=== PATIENT | male | born 1955 | race Caucasian/White ===

== ENCOUNTER 2022-12-14 19:59 | Emergency (ER) | payer MEDICARE, MEDICAID, SELFPAY ==
[2022-12-14] VITALS (23 sets, daily range): BP systolic 137–164; BP diastolic 66–118; PULSE 88–115; RESP 15–22; TEMP 36.8; O2SAT 97–100; BMI 27.8
--- NOTE | 2022-12-14 20:12 | PC.NURSE ---
pt requesting to talk to the dr about complaints and not in front of friend and nurse
--- NOTE | 2022-12-14 20:15 | ED.SOB1 ---
HPI - SOB/Dyspnea General Chief Complaint: Shortness of Breath/Dyspnea Stated Complaint: CP/DIFF BREATHING, PT ON O2 Time Seen by Provider: 12/14/22 20:07 Source: patient Mode of arrival: Wheelchair Limitations: no limitations History of Present Illness HPI Narrative: history of 02 dependent COPD. normally on 2L NC. has been increasing 02 at home to 5L NC due to dyspnea. And also describes episodes of atypical chest pain which he describes as an electric shock left chest on and off. No nausea or vomiting. he is also anxious and tearful regarding his health MD elicited complaint: shortness of breath Pertinent past history: COPD Related Data Allergies Allergy/AdvReac Type Severity Reaction Status Date / Time No Known Drug Allergies Allergy Verified 12/14/22 20:04 Review of Systems ROS Status of ROS 10 or more systems reviewed and unremarkable except as noted in history and below PFSH PFS Social History Smoking status: Current every day smoker Exam Constitutional Vital Signs, click to edit/add: Last Vital Signs Temp 98.2 F 12/14/22 20:05 Pulse 96 H 12/14/22 22:40 Resp 18 12/14/22 22:40 BP 140/88 12/14/22 22:31 Pulse Ox 98 12/14/22 22:40 O2 Del Method Nasal Cannula 12/14/22 20:58 O2 Flow Rate 3 12/14/22 20:58 Common normals: no apparent distress, oriented x3, no limitations (mild resp distress), alert and well nourished Eye Common normals: EOMs intact bilaterally and conjunctivae normal Respiratory Other: diminished breath sounds Cardio Common normals: regular rate, regular rhythm, S1 normal heart sound and S2 normal heart sound Extremity Common normals: normal to inspection, full ROM and no joint enlargement Neuro Common normals: oriented x3, CN's II-XII intact bilaterally, moves all extremities and no focal motor deficits Psych Appearance: grossly normal Course Vital Signs Vital signs: Vital Signs Temperature 98.2 F 12/14/22 20:05 Pulse Rate 115 H 12/14/22 20:05 Respiratory Rate 18 12/14/22 20:05 Blood Pressure 158/75 H 12/14/22 20:05 Pulse Oximetry 99 12/14/22 20:05 Oxygen Delivery Method Room Air 12/14/22 20:05 Temperature 98.2 F 08/14/23 20:05 Pulse Rate 96 H 12/14/22 22:40 Respiratory Rate 18 12/14/22 22:40 Blood Pressure 140/88 12/14/22 22:31 Pulse Oximetry 98 12/14/22 22:40 Oxygen Delivery Method Nasal Cannula 12/14/22 20:58 Oxygen Delivery Flow Rate 3 12/14/22 20:58 MDM - SOB/Dyspnea MDM Narrative Medical decision making narrative: patient presents with complaint of dyspnea and also found to have anxiety. Treated with solumedrol, ativan and duoneb and afterwards rested comfortably. he also described atypical chest pain. Sensation of an electric shock . Serial troponins neg. cxray without infiltrates. Patient informed of the working diagnosis of COPD exac. and anxiety. Will discharge home with prednisone and have him follow up with his doctor Lab Data Labs: Lab Results 12/14/22 12/14/22 Range/Units 20:30 23:21 WBC 9.6 (4.0-11.0) 10^3/uL RBC 5.20 (4.70-6.10) 10^6/uL Hgb 15.9 (14.0-18.0) g/dL Hct 50.1 (42.0-54.0) % MCV 96.3 H (80.0-94.0) fL MCH 30.6 (25.9-34.0) pg MCHC 31.7 (29.9-35.2) g/dL RDW 13.3 (11.0-15.0) % Plt Count 177 (150-450) 10^3/uL MPV 11.4 (9.5-13.5) fL Neut % (Auto) 80.6 H (43.0-75.0) % Lymph % (Auto) 14.5 L (20.5-60.0) % [place] % (Auto) 3.6 (1.7-12.0) % Eos % (Auto) 0.2 L (0.9-7.0) % Baso % (Auto) 0.3 (0.2-2.0) % Neut # (Auto) 7.7 H (1.4-6.5) 10^3/uL Lymph # (Auto) 1.4 (1.2-3.8) 10^3/uL [place] # (Auto) 0.4 (0.3-0.8) 10^3/uL Eos # (Auto) 0.0 (0.0-0.7) 10^3/uL Baso # (Auto) 0.0 (0.0-0.1) 10^3/uL Abs Immat Gran (auto) 0.08 H (0.00-0.03) 10^3/uL Imm/Tot Granulo (auto) 0.8 H (0.0-0.5) % Sodium 142 (136-145) mmol/L Potassium 4.5 (3.5-5.1) mmol/L Chloride 102 (98-107) mmol/L Carbon Dioxide 35.5 H (21.0-32.0) mmol/L Anion Gap 9.0 BUN 18.0 (7.0-18.0) mg/dL Creatinine 1.11 (0.70-1.30) mg/dL Est GFR ( Amer) >60 (>=60) Est GFR (Non-Af Amer) >60 (>=60) BUN/Creatinine Ratio 16.2 Glucose 228 H (74-106) mg/dL Calcium 8.5 (8.5-10.1) mg/dL Troponin I High Sens 65.4 69.4 (4.0-76.1) pg/mL NT-Pro-B Natriuret Pep 158.0 (<=900.0) pg/mL Discharge Plan Discharge Chief Complaint: Shortness of Breath/Dyspnea Clinical Impression: Asthma exacerbation with COPD (chronic obstructive pulmonary disease) Patient Disposition: Home, Self-Care Instructions: COPD (Chronic Obstructive Pulmonary Disease) (ED) Additional Instructions: follow up with your doctor later this week for recheck Stand Alone Forms: Portal Instructions Referrals: Shaikh Hook MD [Primary Care Provider] - 1 week Discharge Date/Time: 12/15/22 00:32
--- NOTE | 2022-12-14 20:24 | ECG_ITS ---
[facility] Test Date: 2022-12-14 Pat Name: Boris Mohr Department: Room: - Gender: Male Biology Specialist: : 1955 Requested By: SHAIKH KAYY Order Number: [id number] Reading MD: CLARA BISHOP Measurements Intervals [place] Rate: 97 P: 81 DC: 144 QRS: 96 QRSD: 72 T: 81 QT: 328 QTc: 383 Interpretive Statements 1100 Sinus rhythm 1102 Sinus arrhythmia 7102 Moderate right axis deviation 9110 normal ECG No previous ECG available for comparison Electronically Signed On 12-15-2022 7:16:05 EDT by CLARA BISHOP
--- NOTE | 2022-12-14 20:35 | XR_ITS ---
The [address] [address] Patient Name: JAMSHID VARELA MRN: [id number] date: 1955 Sex: M Assigned Patient Location: ED.MAIN Current Patient Location: ER Accession/Order Number: [id number] Exam Date: 12/14/2022 20:35 Report Date: 12/14/2022 21:19 At the request of: LONNIE CANO Procedure: XR chest 1V EXAM: XR chest 1V HISTORY: short of breath COMPARISON: None. TECHNIQUE: AP portable study FINDINGS: The lung rosen are well-expanded and clear. There is hyperexpansion of the thorax with flattening of the diaphragm. The heart is within normal limits in size. Early calcification is noted at the aortic arch. Bony structures are unremarkable. XR/XR chest 1V IMPRESSION: Hyperexpansion of the thorax. In the proper clinical setting, this finding can be associated with COPD. No acute cardiopulmonary process is otherwise identified. Electronically authenticated by: Radha MOONEY Date: 12/14/2022 21:19
[2022-12-14 20:36] LABS: Basophils Percent Auto 0.3 % (0.2-2.0); Eosinophils Percent Auto 0.2 % (0.9-7.0); Hematocrit 50.1 % (42.0-54.0); Hemoglobin 15.9 g/dL (14.0-18.0); Immature Granulocytes Abs Auto 0.08 10^3/uL (0.00-0.03); Immature Granulocytes Pct Auto 0.8 % (0.0-0.5); Lymphocytes Absolute Auto 1.4 10^3/uL (1.2-3.8); Lymphocytes Percent Auto 14.5 % (20.5-60.0); Mean Corpuscular HGB Conc 31.7 g/dL (29.9-35.2); Mean Corpuscular Hemoglobin 30.6 pg (25.9-34.0); Mean Corpuscular Volume 96.3 fL (80.0-94.0); Mean Platelet Volume 11.4 fL (9.5-13.5); Monocytes Absolute Auto 0.4 10^3/uL (0.3-0.8); Monocytes Percent Auto 3.6 % (1.7-12.0); Neutrophils Absolute Auto 7.7 10^3/uL (1.4-6.5); Neutrophils Percent Auto 80.6 % (43.0-75.0); Platelet Count 177 10^3/uL (150-450); Red Cell Distribution Width 13.3 % (11.0-15.0); White Blood Count 9.6 10^3/uL (4.0-11.0)
[2022-12-14] MEDS: LORAZEPAM 2 MG/ML 1 ML VIAL 0.5 MG IV (20:36)
[2022-12-14] MEDS: METHYLPREDNISOLONE SOD SUCC PF 125 MG/2 ML VIAL IVP (20:36)
[2022-12-14] MEDS: IPRATROPIUM/ALBUTEROL SULFATE 3 ML AMPUL.NEB IH (20:40)
[2022-12-14 20:57] LABS: BUN Creatinine Ratio 16.2; Calcium 8.5 mg/dL (8.5-10.1); Carbon Dioxide 35.5 mmol/L (21.0-32.0); Chloride 102 mmol/L (98-107); Estimated GFR (African America >60 (>=60); Estimated GFR (Non-African Ame >60 (>=60); Glucose 228 mg/dL (74-106); Potassium 4.5 mmol/L (3.5-5.1); Sodium 142 mmol/L (136-145); Troponin I High Sensitivity 65.4 pg/mL (4.0-76.1)
[2022-12-14 23:43] LABS: Troponin I High Sensitivity 69.4 pg/mL (4.0-76.1)
== END 2022-12-15 00:32 | disposition home or self-care (01) ==
PROVIDERS: Emergency Provider Internal Medicine; PCP Internal Medicine
DX: J44.1 Chronic obstructive pulmonary disease with (acute) exacerbation (principal); F17.210 Nicotine dependence, cigarettes, uncomplicated; Z99.81 Dependence on supplemental oxygen
CPT/HCPCS: 36415; 71045; 80048; 83880; 84484; 85025; 93005; 94640; 96374; 96375; 99285; J2930

== ENCOUNTER 2022-12-23 13:41 | Observation (INO) | payer MEDICARE, MEDICAID, SELFPAY ==
[2022-12-23] VITALS (29 sets, daily range): BP systolic 112–168; BP diastolic 69–126; PULSE 87–114; RESP 15–40; TEMP 36.4–36.7; O2SAT 92–100; BMI 22.8; BMI 23.5
--- NOTE | 2022-12-23 14:00 | ECG_ITS ---
The [facility] Test Date: 2022-12-23 Pat Name: JAMSHID VARELA Department: Room: - Gender: Male Database Manager: : 1955 Requested By: SHAIKH KAYY Order Number: [id number] Reading MD: CLARA BISHOP Measurements Intervals [place] Rate: 110 P: 90 DC: 142 QRS: 99 QRSD: 76 T: 65 QT: 310 QTc: 375 Interpretive Statements 1120 Sinus tachycardia 1470 with occasional supraventricular premature complexes 7102 Moderate right axis deviation 9140 abnormal rhythm ECG Compared to ECG 12/14/2022 20:25:32 Sinus rhythm no longer present Sinus arrhythmia no longer present Electronically Signed On 12-25-2022 6:57:05 EDT by CLARA BISHOP
--- NOTE | 2022-12-23 14:02 | ED.GENADUL1 ---
Documented by User: ELI Moss 12/23/22 16:20 HPI - General Adult General Chief complaint: Chest Pain Stated complaint: CHEST PAIN Time Seen by Provider: 12/23/22 13:44 Source: patient Mode of arrival: walk-in Limitations: no limitations History of Present Illness HPI narrative: patient is a 66-year-old male with chronic obstructive pulmonary disease who presents to the Emergency Room for continued shortness of breath and intermittent pain in the left chest. Patient was seen in this emergency department for the same one week ago. He states symptoms have not improved. He is on a chronic low dose of prednisone. He has a pulper operator in [place] with states the last time he followed up with her she referred him to the emergency department. He saw his PCP today for follow-up and was referred back to the emergency department. He states he has intermittent electric shocks in the left side of the chest which is similar to previous. No peripheral edema. He denies fevers or vomiting. He has chronic sputum production of a small amount of phlegm, no hemoptysis. He denies any history of coronary artery disease or CVA. he is regular smoker. Related Data Home Medications Medication Instructions Recorded Confirmed albuterol sulfate 2.5 mg/3 mL 2.5 mg inhalation Q4H PRN 12/23/22 12/23/22 (0.083 %) solution for nebulization shortness of breath or wheezing aspirin 81 mg chewable tablet 81 mg PO DAILY 12/23/22 12/23/22 atorvastatin 20 mg tablet 20 mg PO DAILY 12/23/22 12/23/22 budesonide 0.5 mg/2 mL suspension 0.5 mg inhalation DAILY PRN sob 12/23/22 12/23/22 for nebulization glycopyrrolate 9 mcg-formoterol 2 inh inhalation Q12H 12/23/22 12/23/22 4.8 mcg HFA aerosol inhaler (Bevespi Aerosphere) prednisone 10 mg tablet 10 mg PO DAILY 12/23/22 12/23/22 tiotropium bromide 18 mcg capsule 1 cap inhalation DAILY 12/23/22 12/23/22 with inhalation device (Spiriva with HandiHaler) Allergies Allergy/AdvReac Type Severity Reaction Status Date / Time No Known Drug Allergies Allergy Verified 12/14/22 20:04 Review of Systems ROS Constitutional Denies: fever or chills Ears, nose, mouth, and throat Denies: throat pain Cardiovascular Reports: chest pain Respiratory Reports: shortness of breath, cough and wheezing Gastrointestinal Reports: nausea; Denies: abdominal pain or vomiting Musculoskeletal Denies: back pain or neck pain Integumentary/Breast Denies: rash Neurological Denies: headache Allergic/Immunologic Denies: hives [facility] Medical History (Updated 12/24/22 @ 10:13 by Kodak Garcia MD) Family History (Updated 12/23/22 @ 17:08 by Anne Siddiqui) Father Family history of CHF (congestive heart failure) Family history of hypertension Mother Family history of CHF (congestive heart failure) Family history of COPD (chronic obstructive pulmonary disease) Family history of hypertension Social History (Updated 12/23/22 @ 17:10 by Anne Siddiqui) Within the past year, how often did you have a drink containing alcohol: monthly or less Within the past year, how many standard drinks containing alcohol did you have on a typical day: 1 or 2 Within the past year, how often did you have six or more drinks on one occasion: never Total score: 0 Score interpretation: A score less than 4 is consistent with normal alcohol consumption. Smoking status: Current every day smoker Non-prescribed substance use: cannabis (any form) Previous occupational history: retired Highest level of school completed/degree received: some college, no degree Are you now , , , , never or living with a partner: In a typical week, how many times do you talk on the telephone with family, friends, or neighbors: twice per week How often do you get together with friends or relatives: twice per week How often do you attend nondenominational or nondenominational services: never Do you belong to any clubs or organizations such as nondenominational groups unions, fraternal or athletic groups, or school groups: no Total score: 1 Score interpretation: A score of less than or equal to 1 indicates the most socially isolated. Little interest or pleasure in doing things: not at all Feeling down, depressed, or hopeless: several days Feel stressed/tense/nervous/anxious/difficulty sleeping: to some extent Exam Narrative Exam Narrative: Gen.: Awake, alert, in no distress Head: Normocephalic, atraumatic ENT: Moist mucous membranes Respiratory: No respiratory distress, oxygen by nasal cannula with expiratory wheezing globally Cardio: Regular rate and rhythm Extremities: Moves extremities equally, no pedal edema Psych: Normal mood and affect Neuro: No focal neuro deficit Skin: Warm, dry, intact Constitutional Vital Signs, click to edit/add: Last Vital Signs Temp 97.5 F L 12/25/22 05:09 Pulse 93 H 12/25/22 08:07 Resp 20 12/25/22 05:09 BP 155/82 H 12/25/22 05:09 Pulse Ox 97 12/25/22 05:09 O2 Del Method Nasal Cannula 12/25/22 05:09 O2 Flow Rate 3 12/25/22 05:09 Course Vital Signs Vital signs: Vital Signs Temperature 98.1 F 12/23/22 13:48 Pulse Rate 105 H 12/23/22 13:48 Respiratory Rate 24 12/23/22 13:48 Pulse Oximetry 92 L 12/23/22 13:48 Oxygen Delivery Method Room Air 12/23/22 13:48 Oxygen Delivery Flow Rate 3 12/23/22 13:48 Temperature 97.5 F L 12/25/22 05:09 Pulse Rate 93 H 12/25/22 08:07 Respiratory Rate 20 12/25/22 05:09 Blood Pressure 155/82 H 12/25/22 05:09 Pulse Oximetry 97 12/25/22 05:09 Oxygen Delivery Method Nasal Cannula 12/25/22 05:09 Oxygen Delivery Flow Rate 3 12/25/22 05:09 Medical Decision Making [facility] Narrative Medical decision making narrative: patient states he was given a prescription of prednisone last week from the emergency department, he states he did not fill or take this medication. He is notably anxious in the emergency department. patient was given IV fluids, breathing treatments, Solu-Medrol, aspirin. He had no severe chest pain in the Emergency Room. No EKG changes at this time. Lab studies are stable from previous although d-dimer was elevated and the patient was sent for CTA of the chest which does not show any evidence of acute process. this is the patient's 2nd visit in one week for shortness of breath and chest pain, he has risk factors of cigarette smoking, his age and history of high cholesterol. He has not improved in his breathing and chronic obstructive pulmonary disease exacerbation as an outpatient, we will admit for failure of outpatient treatment of chronic obstructive pulmonary disease exacerbation and atypical chest pain. Repeat troponin is pending at this time and patient will be admitted to the hospitalist. Medical Records Medical records reviewed: Yes I reviewed the patient's medical records Lab Data Lab results reviewed: Yes I reviewed the patient's lab results Labs: Lab Results 12/23/22 12/23/22 Range/Units 14:00 16:15 WBC 9.0 (4.0-11.0) 10^3/uL RBC 5.43 (4.70-6.10) 10^6/uL Hgb 16.9 (14.0-18.0) g/dL Hct 52.9 (42.0-54.0) % MCV 97.4 H (80.0-94.0) fL MCH 31.1 (25.9-34.0) pg MCHC 31.9 (29.9-35.2) g/dL RDW 12.9 (11.0-15.0) % Plt Count 217 (150-450) 10^3/uL MPV 11.7 (9.5-13.5) fL Neut % (Auto) 68.2 (43.0-75.0) % Lymph % (Auto) 23.3 (20.5-60.0) % [place] % (Auto) 6.5 (1.7-12.0) % Eos % (Auto) 0.8 L (0.9-7.0) % Baso % (Auto) 0.6 (0.2-2.0) % Neut # (Auto) 6.1 (1.4-6.5) 10^3/uL Lymph # (Auto) 2.1 (1.2-3.8) 10^3/uL [place] # (Auto) 0.6 (0.3-0.8) 10^3/uL Eos # (Auto) 0.1 (0.0-0.7) 10^3/uL Baso # (Auto) 0.1 (0.0-0.1) 10^3/uL Abs Immat Gran (auto) 0.05 H (0.00-0.03) 10^3/uL Imm/Tot Granulo (auto) 0.6 H (0.0-0.5) % PT 10.9 (9.0-11.6) sec INR 1.03 APTT 25.3 (22.3-36.2) sec D-Dimer 1.73 H* (<=0.59) mg/L FEU Sodium 135 L (136-145) mmol/L Potassium 4.1 (3.5-5.1) mmol/L Chloride 98 (98-107) mmol/L Carbon Dioxide 39.9 H (21.0-32.0) mmol/L Anion Gap 1.2 BUN 20.0 H (7.0-18.0) mg/dL Creatinine 1.06 (0.70-1.30) mg/dL Est GFR ( Amer) >60 (>=60) Est GFR (Non-Af Amer) >60 (>=60) BUN/Creatinine Ratio 18.9 Glucose 180 H (74-106) mg/dL Calcium 8.8 (8.5-10.1) mg/dL Total Bilirubin 0.9 (0.2-1.0) mg/dL AST 31 (15-37) U/L ALT 58 (16-63) U/L Alkaline Phosphatase 83 (46-116) U/L Troponin I High Sens 48.5 45.3 (4.0-76.1) pg/mL NT-Pro-B Natriuret Pep 88.0 (<=900.0) pg/mL Total Protein 7.5 (6.4-8.2) g/dL Albumin 3.7 (3.4-5.0) g/dL Globulin 3.8 g/dL Albumin/Globulin Ratio 1.[address] scan - chest: Attestation: I have reviewed the pertinent imaging results. Radiologist's impression: Procedure: CT angio chest EXAMINATION: CT angio chest, 12/23/2022 3:15 PM EDT HISTORY: Pulmonary embolism COMPARISON: CTA of the chest from 12/13/2021 TECHNIQUE: CT angiography of the chest was performed with water soluble IV contrast. MIP (maximum intensity projection) images or 3D post processing was performed. CT dose reduction technique was used, including Automated Exposure Control. FINDINGS: The heart is normal in size. The thoracic aorta is normal in caliber. The pulmonary arteries are well opacified without evidence of filling defects. Centrilobular emphysematous changes and bronchiectasis are again seen throughout both lungs. No acute infiltrate is seen. Subcentimeter calcified granuloma is again noted in the medial aspect of the right lung apex. The mediastinum and sonny appear unremarkable. The osseous structures appear intact. The visualized portions of the upper abdomen appear unremarkable. IMPRESSION: No evidence of pulmonary emboli or other acute process. Emphysematous changes and bronchiectasis are again seen throughout both lungs. Electronically authenticated by: SRIDHAR LUCIO Date: 12/23/2022 16:04 ECG Data Attestation: I personally reviewed and interpreted this ECG as follows: (sinus tachycardia, rate of 110, occasional PVCs with no acute ST elevation. EKG reviewed by attending physician) Discharge Plan Discharge Chief Complaint: Chest Pain Clinical Impression: COPD with acute exacerbation, Atypical chest pain Patient Disposition: Admitted as Observation Time of Disposition Decision: 16:20 Condition: Good Discharge Date/Time: 12/23/22 16:52 Documented by User: Anny Carbajal MD 12/25/22 08:37 HPI - General Adult General Chief complaint: Chest Pain Stated complaint: CHEST PAIN Time Seen by Provider: 12/23/22 13:44 Related Data Home Medications Medication Instructions Recorded Confirmed albuterol sulfate 2.5 mg/3 mL 2.5 mg inhalation Q4H PRN 12/23/22 12/23/22 (0.083 %) solution for nebulization shortness of breath or wheezing aspirin 81 mg chewable tablet 81 mg PO DAILY 12/23/22 12/23/22 atorvastatin 20 mg tablet 20 mg PO DAILY 12/23/22 12/23/22 budesonide 0.5 mg/2 mL suspension 0.5 mg inhalation DAILY PRN sob 12/23/22 12/23/22 for nebulization glycopyrrolate 9 mcg-formoterol 2 inh inhalation Q12H 12/23/22 12/23/22 4.8 mcg HFA aerosol inhaler (Bevespi Aerosphere) prednisone 10 mg tablet 10 mg PO DAILY 12/23/22 12/23/22 tiotropium bromide 18 mcg capsule 1 cap inhalation DAILY 12/23/22 12/23/22 with inhalation device (Spiriva with HandiHaler) Allergies Allergy/AdvReac Type Severity Reaction Status Date / Time No Known Drug Allergies Allergy Verified 12/14/22 20:04 [facility] Medical History (Updated 12/24/22 @ 10:13 by Kodak Garcia MD) Family History (Updated 12/23/22 @ 17:08 by Anne Siddiqui) Father Family history of CHF (congestive heart failure) Family history of hypertension Mother Family history of CHF (congestive heart failure) Family history of COPD (chronic obstructive pulmonary disease) Family history of hypertension Social History (Updated 12/23/22 @ 17:10 by Anne Siddiqui) Within the past year, how often did you have a drink containing alcohol: monthly or less Within the past year, how many standard drinks containing alcohol did you have on a typical day: 1 or 2 Within the past year, how often did you have six or more drinks on one occasion: never Total score: 0 Score interpretation: A score less than 4 is consistent with normal alcohol consumption. Smoking status: Current every day smoker Non-prescribed substance use: cannabis (any form) Previous occupational history: retired Highest level of school completed/degree received: some college, no degree Are you now , , , , never or living with a partner: In a typical week, how many times do you talk on the telephone with family, friends, or neighbors: twice per week How often do you get together with friends or relatives: twice per week How often do you attend nondenominational or nondenominational services: never Do you belong to any clubs or organizations such as nondenominational groups unions, fraternal or athletic groups, or school groups: no Total score: 1 Score interpretation: A score of less than or equal to 1 indicates the most socially isolated. Little interest or pleasure in doing things: not at all Feeling down, depressed, or hopeless: several days Feel stressed/tense/nervous/anxious/difficulty sleeping: to some extent Exam Constitutional Vital Signs, click to edit/add: Last Vital Signs Temp 97.5 F L 12/25/22 05:09 Pulse 93 H 12/25/22 08:07 Resp 20 12/25/22 05:09 BP 155/82 H 12/25/22 05:09 Pulse Ox 97 12/25/22 05:09 O2 Del Method Nasal Cannula 12/25/22 05:09 O2 Flow Rate 3 12/25/22 05:09 Course Vital Signs Vital signs: Vital Signs Temperature 98.1 F 12/23/22 13:48 Pulse Rate 105 H 12/23/22 13:48 Respiratory Rate 24 12/23/22 13:48 Pulse Oximetry 92 L 12/23/22 13:48 Oxygen Delivery Method Room Air 12/23/22 13:48 Oxygen Delivery Flow Rate 3 12/23/22 13:48 Temperature 97.5 F L 12/25/22 05:09 Pulse Rate 93 H 12/25/22 08:07 Respiratory Rate 20 12/25/22 05:09 Blood Pressure 155/82 H 12/25/22 05:09 Pulse Oximetry 97 12/25/22 05:09 Oxygen Delivery Method Nasal Cannula 12/25/22 05:09 Oxygen Delivery Flow Rate 3 12/25/22 05:09 Medical Decision Making MDM Narrative Medical decision making narrative: patient states he was given a prescription of prednisone last week from the emergency department, he states he did not fill or take this medication. He is notably anxious in the emergency department. patient was given IV fluids, breathing treatments, Solu-Medrol, aspirin. He had no severe chest pain in the Emergency Room. No EKG changes at this time. Lab studies are stable from previous although d-dimer was elevated and the patient was sent for CTA of the chest which does not show any evidence of acute process. this is the patient's 2nd visit in one week for shortness of breath and chest pain, he has risk factors of cigarette smoking, his age and history of high cholesterol. He has not improved in his breathing and chronic obstructive pulmonary disease exacerbation as an outpatient, we will admit for failure of outpatient treatment of chronic obstructive pulmonary disease exacerbation and atypical chest pain. Repeat troponin is pending at this time and patient will be admitted to the hospitalist. Attending physician attestation I have seen and evaluated this patient. I have reviewed the mid-level provider?s documentation medical decision making and treatment plan. I agree with the mid-level provider?s assessment, and plan. Lab Data Labs: Lab Results 12/23/22 12/23/22 Range/Units 14:00 16:15 WBC 9.0 (4.0-11.0) 10^3/uL RBC 5.43 (4.70-6.10) 10^6/uL Hgb 16.9 (14.0-18.0) g/dL Hct 52.9 (42.0-54.0) % MCV 97.4 H (80.0-94.0) fL MCH 31.1 (25.9-34.0) pg MCHC 31.9 (29.9-35.2) g/dL RDW 12.9 (11.0-15.0) % Plt Count 217 (150-450) 10^3/uL MPV 11.7 (9.5-13.5) fL Neut % (Auto) 68.2 (43.0-75.0) % Lymph % (Auto) 23.3 (20.5-60.0) % [place] % (Auto) 6.5 (1.7-12.0) % Eos % (Auto) 0.8 L (0.9-7.0) % Baso % (Auto) 0.6 (0.2-2.0) % Neut # (Auto) 6.1 (1.4-6.5) 10^3/uL Lymph # (Auto) 2.1 (1.2-3.8) 10^3/uL [place] # (Auto) 0.6 (0.3-0.8) 10^3/uL Eos # (Auto) 0.1 (0.0-0.7) 10^3/uL Baso # (Auto) 0.1 (0.0-0.1) 10^3/uL Abs Immat Gran (auto) 0.05 H (0.00-0.03) 10^3/uL Imm/Tot Granulo (auto) 0.6 H (0.0-0.5) % PT 10.9 (9.0-11.6) sec INR 1.03 APTT 25.3 (22.3-36.2) sec D-Dimer 1.73 H* (<=0.59) mg/L FEU Sodium 135 L (136-145) mmol/L Potassium 4.1 (3.5-5.1) mmol/L Chloride 98 (98-107) mmol/L Carbon Dioxide 39.9 H (21.0-32.0) mmol/L Anion Gap 1.2 BUN 20.0 H (7.0-18.0) mg/dL Creatinine 1.06 (0.70-1.30) mg/dL Est GFR ( Amer) >60 (>=60) Est GFR (Non-Af Amer) >60 (>=60) BUN/Creatinine Ratio 18.9 Glucose 180 H (74-106) mg/dL Calcium 8.8 (8.5-10.1) mg/dL Total Bilirubin 0.9 (0.2-1.0) mg/dL AST 31 (15-37) U/L ALT 58 (16-63) U/L Alkaline Phosphatase 83 (46-116) U/L Troponin I High Sens 48.5 45.3 (4.0-76.1) pg/mL NT-Pro-B Natriuret Pep 88.0 (<=900.0) pg/mL Total Protein 7.5 (6.4-8.2) g/dL Albumin 3.7 (3.4-5.0) g/dL Globulin 3.8 g/dL Albumin/Globulin Ratio 1.0 Discharge Plan Discharge Chief Complaint: Chest Pain Clinical Impression: COPD with acute exacerbation, Atypical chest pain Patient Disposition: Admitted as Observation Time of Disposition Decision: 16:20 Condition: Good Discharge Date/Time: 12/23/22 16:52
[2022-12-23] MEDS: ONDANSETRON PF 4 MG/2 ML VIAL IV (14:15)
[2022-12-23] MEDS: ASPIRIN 81 MG TAB.CHEW 162 MG PO (14:15)
[2022-12-23] MEDS: 0.9 % SODIUM CHLORIDE 1,000 ML 1000 ML IV (14:15)
[2022-12-23] MEDS: METHYLPREDNISOLONE SOD SUCC PF 125 MG/2 ML VIAL IVP (14:15)
[2022-12-23 14:18] LABS: Basophils Absolute Auto 0.1 10^3/uL (0.0-0.1); Basophils Percent Auto 0.6 % (0.2-2.0); Eosinophils Absolute Auto 0.1 10^3/uL (0.0-0.7); Eosinophils Percent Auto 0.8 % (0.9-7.0); Hematocrit 52.9 % (42.0-54.0); Hemoglobin 16.9 g/dL (14.0-18.0); Immature Granulocytes Abs Auto 0.05 10^3/uL (0.00-0.03); Immature Granulocytes Pct Auto 0.6 % (0.0-0.5); Lymphocytes Absolute Auto 2.1 10^3/uL (1.2-3.8); Lymphocytes Percent Auto 23.3 % (20.5-60.0); Mean Corpuscular HGB Conc 31.9 g/dL (29.9-35.2); Mean Corpuscular Hemoglobin 31.1 pg (25.9-34.0); Mean Corpuscular Volume 97.4 fL (80.0-94.0); Mean Platelet Volume 11.7 fL (9.5-13.5); Monocytes Absolute Auto 0.6 10^3/uL (0.3-0.8); Monocytes Percent Auto 6.5 % (1.7-12.0); Neutrophils Absolute Auto 6.1 10^3/uL (1.4-6.5); Neutrophils Percent Auto 68.2 % (43.0-75.0); Platelet Count 217 10^3/uL (150-450); Red Blood Count 5.43 10^6/uL (4.70-6.10); Red Cell Distribution Width 12.9 % (11.0-15.0)
[2022-12-23] MEDS: IPRATROPIUM/ALBUTEROL SULFATE 3 ML AMPUL.NEB IH ×2 (14:21→21:10)
[2022-12-23] MEDS: ALBUTEROL SULFATE 2.5 MG/3 ML VIAL NEB IH (14:21)
[2022-12-23 14:23] LABS: Alanine Aminotransferase 58 U/L (16-63); Albumin Level 3.7 g/dL (3.4-5.0); Alkaline Phosphatase 83 U/L (46-116); Anion Gap 1.2; Aspartate Amino Transferase 31 U/L (15-37); BUN Creatinine Ratio 18.9; Bilirubin Total 0.9 mg/dL (0.2-1.0); Calcium 8.8 mg/dL (8.5-10.1); Carbon Dioxide 39.9 mmol/L (21.0-32.0); Chloride 98 mmol/L (98-107); Estimated GFR (African America >60 (>=60); Estimated GFR (Non-African Ame >60 (>=60); Globulin 3.8 g/dL; Glucose 180 mg/dL (74-106); Potassium 4.1 mmol/L (3.5-5.1); Sodium 135 mmol/L (136-145); Total Protein 7.5 g/dL (6.4-8.2)
[2022-12-23 14:26] LABS: INR 1.03; Partial Thromboplastin Time 25.3 sec (22.3-36.2); Prothrombin Time 10.9 sec (9.0-11.6)
[2022-12-23 14:27] LABS: D Dimer 1.73 mg/L FEU (<=0.59)
[2022-12-23 14:31] LABS: Troponin I High Sensitivity 48.5 pg/mL (4.0-76.1)
--- NOTE | 2022-12-23 14:31 | CT_ITS ---
The [address] [address] Patient Name: JAMSHID VARELA MRN: [id number] date: 1955 Sex: M Assigned Patient Location: ER Current Patient Location: ER Accession/Order Number: [id number] Exam Date: 12/23/2022 15:15 Report Date: 12/23/2022 16:04 At the request of: JEET SINGH Procedure: CT angio chest EXAMINATION: CT angio chest, 12/23/2022 3:15 PM EDT HISTORY: Pulmonary embolism COMPARISON: CTA of the chest from 12/13/2021 TECHNIQUE: CT angiography of the chest was performed with water soluble IV contrast. MIP (maximum intensity projection) images or 3D post processing was performed. CT dose reduction technique was used, including Automated Exposure Control. FINDINGS: The heart is normal in size. The thoracic aorta is normal in caliber. The pulmonary arteries are well opacified without evidence of filling defects. Centrilobular emphysematous changes and bronchiectasis are again seen throughout both lungs. No acute infiltrate is seen. Subcentimeter calcified granuloma is again noted in the medial aspect of the right lung apex. The mediastinum and sonny appear unremarkable. The osseous structures appear intact. The visualized portions of the upper abdomen appear unremarkable. CT/CT angio chest IMPRESSION: No evidence of pulmonary emboli or other acute process. Emphysematous changes and bronchiectasis are again seen throughout both lungs. Electronically authenticated by: SRIDHAR LUCIO Date: 12/23/2022 16:04
[2022-12-23 16:37] LABS: Troponin I High Sensitivity 45.3 pg/mL (4.0-76.1)
[2022-12-23] MEDS: ENOXAPARIN SODIUM 40 MG/0.4 ML SYRINGE SUBQ (18:18)
[2022-12-23] MEDS: 0.9 % SODIUM CHLORIDE 250 ML 30 ML IV (18:18)
[2022-12-23] MEDS: LEVOFLOXACIN IN DEXTROSE 5 % 750 MG/150 ML PIGGYBACK IV (18:18)
[2022-12-23] MEDS: ACETAMINOPHEN 500 MG TABLET 1000 MG PO (21:51)
[2022-12-23] MEDS: METHYLPREDNISOLONE SOD SUCC PF 125 MG/2 ML VIAL 60 MG IVP (21:52)
[2022-12-23] MEDS: ATORVASTATIN CALCIUM 20 MG TABLET PO (21:52)
[2022-12-24] VITALS (20 sets, daily range): BP systolic 128–147; BP diastolic 78–82; PULSE 66–102; RESP 16–20; TEMP 36.3–36.6; O2SAT 94–99
[2022-12-24] MEDS: METHYLPREDNISOLONE SOD SUCC PF 125 MG/2 ML VIAL 60 MG IVP ×4 (02:26→22:01)
[2022-12-24 05:14] LABS: Basophils Percent Auto 0.1 % (0.2-2.0); Hematocrit 42.9 % (42.0-54.0); Hemoglobin 13.7 g/dL (14.0-18.0); Immature Granulocytes Abs Auto 0.05 10^3/uL (0.00-0.03); Immature Granulocytes Pct Auto 0.7 % (0.0-0.5); Lymphocytes Absolute Auto 0.5 10^3/uL (1.2-3.8); Lymphocytes Percent Auto 7.2 % (20.5-60.0); Mean Corpuscular HGB Conc 31.9 g/dL (29.9-35.2); Mean Corpuscular Hemoglobin 30.8 pg (25.9-34.0); Mean Corpuscular Volume 96.4 fL (80.0-94.0); Mean Platelet Volume 12.1 fL (9.5-13.5); Monocytes Absolute Auto 0.1 10^3/uL (0.3-0.8); Monocytes Percent Auto 1.9 % (1.7-12.0); Neutrophils Percent Auto 90.1 % (43.0-75.0); Platelet Count 141 10^3/uL (150-450); Red Blood Count 4.45 10^6/uL (4.70-6.10); Red Cell Distribution Width 12.5 % (11.0-15.0); White Blood Count 6.7 10^3/uL (4.0-11.0)
[2022-12-24 05:27] LABS: Anion Gap 0.5; BUN Creatinine Ratio 24.1; Calcium 8.4 mg/dL (8.5-10.1); Carbon Dioxide 35.6 mmol/L (21.0-32.0); Chloride 96 mmol/L (98-107); Estimated GFR (African America >60 (>=60); Estimated GFR (Non-African Ame >60 (>=60); Glucose 174 mg/dL (74-106); Potassium 4.1 mmol/L (3.5-5.1); Sodium 128 mmol/L (136-145)
--- NOTE | 2022-12-24 09:40 | CM.NOTE ---
Rounds made with Dr. Garcia, no discharge for pt today. Pt does have home oxygen @3L [place]. Encouraged pt to ambulate in hallway today and possible discharge tomorrow. Pt up ad ashley and steady with ambulation.
[2022-12-24] MEDS: IPRATROPIUM/ALBUTEROL SULFATE 3 ML AMPUL.NEB IH ×3 (09:57→22:31)
--- NOTE | 2022-12-24 10:00 | SWNOTE1 ---
SW met with pt to discuss dc needs. Pt lives at home with his niece and her 3 children. He stated his niece works so she stays pretty busy. Pt does wear home oxygen at 3 liters. Pt states he is pretty independent at home and he rides his bike to get places. At this time pt does not voice any discharge needs. SW to follow as needed. SW spoke with nursing as well and pt told doctor this morning he will need a ride home tomorrow, SW to assess tomorrow if pt is discharged.
--- NOTE | 2022-12-24 10:16 | PM.HP ---
H&P: HPI History of Present Illness Chief complaint: SOB Narrative: 66 y/o male with a history of COPD on home O2 presents to ER with SOB. C/o worsening SOB for over a week. To ER 12/14 and diagnosed with COPD exacerbation. Given script for prednisone and filled but did not start. Continued to have SOB. SOB with minimal exertion and hard to walk around house. Chest tight and hard to take deep breath. Frequent nonproductive cough. Afebrile. No congestion or rhinorrhea. Developed pain in chest with inspiration or cough. Worsening SOB and to ER. Afebrile and normal WBC. CTA chest negative. Admitted for treatment. Started antibiotics, steroids, and breathing treatments. Maintaining normal SpO2 on home rate of oxygen at 3 LPM. Feels better this am but still SOB and fatigue with exertion. Review of Systems ROS Constitutional Denies: fever, chills or night sweats Cardiovascular Denies: chest pain, palpitations or edema Respiratory Reports: shortness of breath, cough, wheezing and pain on inspiration Gastrointestinal Denies: abdominal pain, nausea, vomiting or diarrhea Genitourinary Denies: painful urination [facility] Medical History (Updated 12/24/22 @ 10:13 by Kodak Garcia MD) Family History (Updated 12/23/22 @ 17:08 by Anne Siddiqui) Father Family history of CHF (congestive heart failure) Family history of hypertension Mother Family history of CHF (congestive heart failure) Family history of COPD (chronic obstructive pulmonary disease) Family history of hypertension Social History (Updated 12/23/22 @ 17:10 by Anne Siddiqui) Within the past year, how often did you have a drink containing alcohol: monthly or less Within the past year, how many standard drinks containing alcohol did you have on a typical day: 1 or 2 Within the past year, how often did you have six or more drinks on one occasion: never Total score: 0 Score interpretation: A score less than 4 is consistent with normal alcohol consumption. Smoking status: Current every day smoker Non-prescribed substance use: cannabis (any form) Previous occupational history: retired Highest level of school completed/degree received: some college, no degree Are you now , , , , never or living with a partner: In a typical week, how many times do you talk on the telephone with family, friends, or neighbors: twice per week How often do you get together with friends or relatives: twice per week How often do you attend shinto or roman catholic services: never Do you belong to any clubs or organizations such as shinto groups unions, fraternal or athletic groups, or school groups: no Total score: 1 Score interpretation: A score of less than or equal to 1 indicates the most socially isolated. Little interest or pleasure in doing things: not at all Feeling down, depressed, or hopeless: several days Feel stressed/tense/nervous/anxious/difficulty sleeping: to some extent Meds Home Medications and Allergies Home Medications Medication Instructions Recorded Confirmed Type albuterol sulfate 2.5 mg/3 mL 2.5 mg inhalation Q4H PRN 12/23/22 12/23/22 History (0.083 %) solution for nebulization shortness of breath or wheezing aspirin 81 mg chewable tablet 81 mg PO DAILY 12/23/22 12/23/22 History atorvastatin 20 mg tablet 20 mg PO DAILY 12/23/22 12/23/22 History budesonide 0.5 mg/2 mL suspension 0.5 mg inhalation DAILY PRN sob 12/23/22 12/23/22 History for nebulization glycopyrrolate 9 mcg-formoterol 2 inh inhalation Q12H 12/23/22 12/23/22 History 4.8 mcg HFA aerosol inhaler (Bevespi Aerosphere) prednisone 10 mg tablet 10 mg PO DAILY 12/23/22 12/23/22 History tiotropium bromide 18 mcg capsule 1 cap inhalation DAILY 12/23/22 12/23/22 History with inhalation device (Spiriva with HandiHaler) Allergies Allergy/AdvReac Type Severity Reaction Status Date / Time No Known Drug Allergies Allergy Verified 12/14/22 20:04 Exam Constitutional Vital Signs, click to edit/add: Last Vital Signs Temp 97.6 F 12/24/22 05:23 Pulse 82 12/24/22 10:02 Resp 16 12/24/22 05:23 BP 128/82 12/24/22 05:23 Pulse Ox 98 12/24/22 10:01 O2 Del Method Nasal Cannula 12/24/22 10:01 O2 Flow Rate 3 12/24/22 10:01 Documenting provider has reviewed patient's vital signs: yes Common normals: no apparent distress, oriented x3 and alert HENMT Common normals: normocephalic Eye Common normals: PERRL and EOMs intact bilaterally Respiratory Auscultation: wheezes and diminished lung sounds Cardio Common normals: regular rate, regular rhythm, no gallops, no murmurs and no rub GI Common normals: Normal to inspection, nondistended, normoactive bowel sounds present and non-tender Extremity Common normals: no pedal edema Results Labs Labs: Short CBC 12/23/22 12/24/22 Range/Units 14:00 04:30 WBC 9.0 6.7 (4.0-11.0) 10^3/uL Hgb 16.9 13.7 L (14.0-18.0) g/dL Hct 52.9 42.9 (42.0-54.0) % Plt Count 217 141 L (150-450) 10^3/uL BMP 12/23/22 12/24/22 14:00 04:30 Sodium 135 L 128 L Potassium 4.1 4.1 Chloride 98 96 L Carbon Dioxide 39.9 H 35.6 H BUN 20.0 H 21.0 H Creatinine 1.06 0.87 Glucose 180 H 174 H Calcium 8.8 8.4 L Liver Function 12/23/22 Range/Units 14:00 Total Bilirubin 0.9 (0.2-1.0) mg/dL AST 31 (15-37) U/L ALT 58 (16-63) U/L Alkaline Phosphatase 83 (46-116) U/L Albumin 3.7 (3.4-5.0) g/dL Pulse Oximetry Attestation: I have reviewed the pertinent pulse oximetry results. Imaging CT scan - chest: Attestation: I have reviewed the pertinent imaging results. Assessment and Plan Assessment and Plan (1) COPD with acute exacerbation: (2) Chronic respiratory failure with hypoxia: (3) Hyponatremia: (4) Ouqnf-5-sthnprmizvd deficiency: (5) Atypical chest pain: Plan Continue antibiotics, steroids, and breathing treatments for COPD. Sodium low and start IV fluids. Increase ambulation and add PEP. Resume home medication. Likely will be ready for discharge in am.
[2022-12-24] MEDS: 0.9 % SODIUM CHLORIDE 1,000 ML 125 ML IV ×2 (12:48→20:53)
[2022-12-24] MEDS: ENOXAPARIN SODIUM 40 MG/0.4 ML SYRINGE SUBQ (17:45)
[2022-12-24] MEDS: LEVOFLOXACIN IN DEXTROSE 5 % 750 MG/150 ML PIGGYBACK IV (17:46)
[2022-12-24] MEDS: ATORVASTATIN CALCIUM 20 MG TABLET PO (22:01)
[2022-12-25] VITALS (10 sets, daily range): BP systolic 155; BP diastolic 82; PULSE 83–116; RESP 18–20; TEMP 36.4; O2SAT 95–97
[2022-12-25] MEDS: BISACODYL 5 MG TABLET PO (00:48)
[2022-12-25] MEDS: METHYLPREDNISOLONE SOD SUCC PF 125 MG/2 ML VIAL 60 MG IVP ×2 (01:46→08:40)
[2022-12-25] MEDS: IPRATROPIUM/ALBUTEROL SULFATE 3 ML AMPUL.NEB IH ×2 (04:28→10:47)
[2022-12-25 04:42] LABS: Basophils Percent Auto 0.1 % (0.2-2.0); Hematocrit 39.2 % (42.0-54.0); Hemoglobin 12.6 g/dL (14.0-18.0); Immature Granulocytes Abs Auto 0.13 10^3/uL (0.00-0.03); Immature Granulocytes Pct Auto 0.9 % (0.0-0.5); Lymphocytes Absolute Auto 0.6 10^3/uL (1.2-3.8); Lymphocytes Percent Auto 3.9 % (20.5-60.0); Mean Corpuscular HGB Conc 32.1 g/dL (29.9-35.2); Mean Corpuscular Hemoglobin 31.2 pg (25.9-34.0); Mean Platelet Volume 12.2 fL (9.5-13.5); Monocytes Absolute Auto 0.4 10^3/uL (0.3-0.8); Monocytes Percent Auto 2.8 % (1.7-12.0); Neutrophils Absolute Auto 13.9 10^3/uL (1.4-6.5); Neutrophils Percent Auto 92.3 % (43.0-75.0); Platelet Count 142 10^3/uL (150-450); Red Blood Count 4.04 10^6/uL (4.70-6.10); Red Cell Distribution Width 12.9 % (11.0-15.0)
[2022-12-25 04:55] LABS: Anion Gap 9.4; BUN Creatinine Ratio 23.7; Calcium 8.2 mg/dL (8.5-10.1); Carbon Dioxide 33.2 mmol/L (21.0-32.0); Chloride 103 mmol/L (98-107); Estimated GFR (African America >60 (>=60); Estimated GFR (Non-African Ame >60 (>=60); Glucose 219 mg/dL (74-106); Potassium 4.6 mmol/L (3.5-5.1); Sodium 141 mmol/L (136-145)
--- NOTE | 2022-12-25 06:00 | PC.NURSE ---
pt earlier during shift had spoke with me about not having a BM for a couple of days, I went over with him about him having bowel sounds, and some times a change in habits and that changes in fluid and food intake can change bowel patterns. we discussed the use of a laxative so as not to do anything invasive from the start and he greed to try it. thismorning he is upset and wants a enema. contact doctor and get verbal telephone order for fleet enema. offer pt treatment and let him decide what to do.
[2022-12-25] MEDS: 0.9 % SODIUM CHLORIDE 1,000 ML 125 ML IV (06:17)
[2022-12-25] MEDS: ASPIRIN 81 MG TAB.CHEW PO (08:40)
--- NOTE | 2022-12-25 10:02 | CM.NOTE ---
Rounds made with alena Jarrett to discharge to home today. Pt has home oxygen, no other discharge needs identified.
--- NOTE | 2022-12-25 10:22 | P.DS_ITS ---
DS: Providers Provider Date of admission: 12/23/22 16:35 Primary care physician: Shaikh Monster MD Consults: 12/23/22 Consult to Apartment Hotel Manager Routine Reason for consult:: Medical/financial DS: Diagnosis Discharge Diagnosis (1) COPD with acute exacerbation: (2) Chronic respiratory failure with hypoxia: (3) Hyponatremia: (4) Jijuj-8-lskfselnhqb deficiency: (5) Atypical chest pain: DS: Summary Hospital Course Hospital Course: Reason for admission: See H&P for details. 66 y/o male with a history of COPD on home O2 presents to ER with SOB. C/o worsening SOB for over a week. To ER 12/14 and diagnosed with COPD exacerbation. Given script for prednisone and filled but did not start. Continued to have SOB. SOB with minimal exertion and hard to walk around house. Chest tight and hard to take deep breath. Frequent nonproductive cough. Afebrile. No congestion or rhinorrhea. Developed pain in chest with inspiration or cough. Worsening SOB and to ER. Afebrile and normal WBC. CTA chest negative. Admitted for treatment. Hospital course: Started antibiotics, steroids, and breathing treatments. Maintained normal SpO2 on home rate of oxygen at 3 LPM. Slowly improved in hospital. Continues to have SOB and fatigue with exertion. Normal SpO2 and afebrile. Labs improved. Ambulating around room. Discharged home in stable condition. Take levaquin and prednisone as directed. Resume home medication as directed. F/u with PCP in 1-2 weeks. Time Spent with Patient Time attestation: Total time spent providing and/or coordinating discharge services: Exam Constitutional Vital Signs, click to edit/add: Last Vital Signs Temp 97.5 F L 12/25/22 05:09 Pulse 116 H 12/25/22 10:08 Resp 20 12/25/22 05:09 BP 155/82 H 12/25/22 05:09 Pulse Ox 97 12/25/22 05:09 O2 Del Method Nasal Cannula 12/25/22 05:09 O2 Flow Rate 3 12/25/22 05:09 Documenting provider has reviewed patient's vital signs: yes Common normals: no apparent distress, oriented x3 and alert HENMT Common normals: normocephalic Eye Common normals: PERRL and EOMs intact bilaterally Respiratory Auscultation: wheezes and diminished lung sounds Cardio Common normals: regular rate, regular rhythm, no gallops, no murmurs and no rub GI Common normals: Normal to inspection, nondistended, normoactive bowel sounds present and non-tender Extremity Common normals: no pedal edema DS: Data Data Completed and Pending Labs on day of discharge: Labs from last 24 hours 12/25/22 04:16 WBC 15.0 H RBC 4.04 L Hgb 12.6 L Hct 39.2 L MCV 97.0 H MCH 31.2 MCHC 32.1 RDW 12.9 Plt Count 142 L MPV 12.2 Neut % (Auto) 92.3 H Lymph % (Auto) 3.9 L [place] % (Auto) 2.8 Eos % (Auto) 0.0 L Baso % (Auto) 0.1 L Neut # (Auto) 13.9 H Lymph # (Auto) 0.6 L [place] # (Auto) 0.4 Eos # (Auto) 0.0 Baso # (Auto) 0.0 Abs Immat Gran (auto) 0.13 H Imm/Tot Granulo (auto) 0.9 H Sodium 141 Potassium 4.6 Chloride 103 Carbon Dioxide 33.2 H Anion Gap 9.4 BUN 22.0 H Creatinine 0.93 Est GFR ( Amer) >60 Est GFR (Non-Af Amer) >60 BUN/Creatinine Ratio 23.7 Glucose 219 H Calcium 8.2 L Discharge Plan Discharge Disposition: Home, Self-Care Condition: Good Discharge Medications: New prednisone 10 mg tablets,dose pack 10 mg PO DAILY Qty: 39 0RF Rx Instructions: 6 PO daily x 3 days, then 4 PO daily x 3 days, then 2 PO daily x 3 days, then 1 PO daily x 3 days levofloxacin 750 mg tablet 750 mg PO DAILY 7 Days Qty: 7 0RF Continued albuterol sulfate 2.5 mg /3 mL (0.083 %) solution for nebulization 2.5 mg inhalation Q4H PRN (Reason: shortness of breath or wheezing) atorvastatin 20 mg tablet 20 mg PO DAILY budesonide 0.5 mg/2 mL suspension for nebulization 0.5 mg inhalation DAILY PRN (Reason: sob) Bevespi Aerosphere 9-4.8 mcg HFA aerosol inhaler 2 inh INHALATION Q12H Spiriva with HandiHaler 18 mcg capsule, w/inhalation device 1 cap INHALATION DAILY aspirin 81 mg tablet,chewable 81 mg PO DAILY Held prednisone 10 mg tablet 10 mg PO DAILY Hold Instructions: Resume on 01/07/23. Hold until complete prednisone taper Activity: resume usual activities as tolerated Diet: advance to your usual diet Forms: Portal Instructions
--- NOTE | 2022-12-25 10:24 | SWNOTE1 ---
Pt let case management know he does not have a ride home. SW spoke with pt and he is not sure what time his daughter gets off work and she also has kids that she has to fruit picker from design studio consultant and take care of. SW to set up trips. Pt asked if trips stopped [facility] in [place], SW let him know they do not. Pt also wanted to clarify we have medicare for his insurance, SW verified he had straight medicare and medicaid as secondary. SW to call trips.
--- NOTE | 2022-12-25 10:44 | PC.NURSE ---
Fleet enema administered at this time. Patient tolerated well and educated on trying to hold the fluid in the rectum as long as he could tolerate it for optimal results. Patient verabalized an understanding.
--- NOTE | 2022-12-25 10:49 | SWNOTE1 ---
SW set up trips and they will be here between 1:45-2:15, SW notified nursing and will notify patient as well.
--- NOTE | 2022-12-25 12:06 | PC.NURSE ---
Patient stated he was concerned because he would not have transportation to get his medications. I informed him that some pharmacies offer a delivery service and he said he would call [facility] in [place] to see if they did. Writing RN was in the room with the patient and the pharmacy staff was on speaker phone. Patient was informed by them that they do offer it but it is set up online and it should be in his text notifications he gets when his medications are ready. After hanging up the RN offered to help him look at those notifications and show him the link so that he could set up the medications to be delivered. However the patient responded with I don't have time for that . Writing RN said okay and to let her know if he changed his mind and she would help him. Patient denied any further needs at this time.
--- NOTE | 2022-12-28 15:37 | CM.DCFOLLOWU ---
Person spoke with: Boris How are you feeling? Better How is your pain? No pain Did you understand your discharge instructions? yes Do you have any questions about your discharge instructions? No Were you given any prescriptions at discharge? yes Were you able to get your prescriptions filled? yes Do you understand how to take your medications as ordered? yes Do you have any questions about your follow up appointment and do you plan to keep your follow up appointment? I will call as soon as we hang up Is there anything else that you would like to discuss? No Questions/Comments/Concerns/Other:
== END 2022-12-25 13:49 | disposition home or self-care (01) ==
LOC: ER 16:20 → MS 16:38
PROVIDERS: Physician Assistant; Admitting Provider Family Medicine; Emergency Provider Emergency Medicine; PCP Internal Medicine; Visit Provider Family Medicine
DX: J44.1 Chronic obstructive pulmonary disease with (acute) exacerbation (principal); J96.11 Chronic respiratory failure with hypoxia; E87.1 Hypo-osmolality and hyponatremia; E88.01 Alpha-1-antitrypsin deficiency; R07.89 Other chest pain; F17.210 Nicotine dependence, cigarettes, uncomplicated; Z99.81 Dependence on supplemental oxygen; F12.90 Cannabis use, unspecified, uncomplicated; Z79.82 Long term (current) use of aspirin; Z79.899 Other long term (current) drug therapy
CPT/HCPCS: 36415; 71275; 80048; 80053; 83880; 84484; 85025; 85378; 85610; 85730; 93005; 94640; 94667; 94668; 94761; 96372; 96374; 96375; 96376; 99285; 99406; G0378; J2930; Q9967

== ENCOUNTER 2023-01-05 13:59 | Inpatient (IN) | payer MEDICARE, MEDICAID, SELFPAY ==
[2023-01-05] VITALS (22 sets, daily range): BP systolic 106–173; BP diastolic 68–143; PULSE 93–117; RESP 13–36; TEMP 36.3–36.6; O2SAT 94–100; BMI 22.1; BMI 23.3
--- NOTE | 2023-01-05 14:10 | ED_ITS ---
HPI - SOB/Dyspnea General Chief Complaint: Shortness of Breath/Dyspnea Stated Complaint: SHORTNESS OF BREATH Time Seen by Provider: 01/05/23 14:10 History of Present Illness HPI Narrative: this patient came to the hospital by personal vehicle from his doctor's office. He is very stoic gentleman with end-stage chronic obstructive pulmonary disease who is been short of breath over the entire holiday weekend. He uses nebulizers at home. He uses 5 L nasal cannula at all times. He still smokes one to two cigarettes per day. He does have some nausea today. No heaviness or pain in his chest. No headache. Related Data Home Medications Medication Instructions Recorded Confirmed albuterol sulfate 2.5 mg/3 mL 2.5 mg inhalation Q4H PRN 12/23/22 12/23/22 (0.083 %) solution for nebulization shortness of breath or wheezing aspirin 81 mg chewable tablet 81 mg PO DAILY 12/23/22 12/23/22 atorvastatin 20 mg tablet 20 mg PO DAILY 12/23/22 12/23/22 budesonide 0.5 mg/2 mL suspension 0.5 mg inhalation DAILY PRN sob 12/23/22 12/23/22 for nebulization glycopyrrolate 9 mcg-formoterol 2 inh inhalation Q12H 12/23/22 12/23/22 4.8 mcg HFA aerosol inhaler (Bevespi Aerosphere) prednisone 10 mg tablet 10 mg PO DAILY 12/23/22 12/23/22 tiotropium bromide 18 mcg capsule 1 cap inhalation DAILY 12/23/22 12/23/22 with inhalation device (Spiriva with HandiHaler) Previous Rx's Medication Instructions Recorded levofloxacin 750 mg tablet 750 mg PO DAILY 7 days #7 tabs 12/25/22 prednisone 10 mg tablets in a dose 10 mg PO DAILY #39 ea 12/25/22 pack Allergies Allergy/AdvReac Type Severity Reaction Status Date / Time No Known Drug Allergies Allergy Verified 12/14/22 20:04 [facility] Medical History (Updated 01/05/23 @ 15:07 by Marcos Moses MD) Family History (Updated 12/23/22 @ 17:08 by Anne Siddiqui) Father Family history of CHF (congestive heart failure) Family history of hypertension Mother Family history of CHF (congestive heart failure) Family history of COPD (chronic obstructive pulmonary disease) Family history of hypertension Social History (Updated 12/23/22 @ 17:10 by Anne Siddiqui) Within the past year, how often did you have a drink containing alcohol: monthly or less Within the past year, how many standard drinks containing alcohol did you have on a typical day: 1 or 2 Within the past year, how often did you have six or more drinks on one occasion: never Total score: 0 Score interpretation: A score less than 4 is consistent with normal alcohol consumption. Smoking status: Current every day smoker Non-prescribed substance use: cannabis (any form) Previous occupational history: retired Highest level of school completed/degree received: some college, no degree Are you now , , , , never or living with a partner: In a typical week, how many times do you talk on the telephone with family, friends, or neighbors: twice per week How often do you get together with friends or relatives: twice per week How often do you attend synagogue or jainism services: never Do you belong to any clubs or organizations such as synagogue groups unions, fraternal or athletic groups, or school groups: no Total score: 1 Score interpretation: A score of less than or equal to 1 indicates the most socially isolated. Little interest or pleasure in doing things: not at all Feeling down, depressed, or hopeless: several days Feel stressed/tense/nervous/anxious/difficulty sleeping: to some extent Exam Narrative Exam Narrative: awake alert good historian we will recheck a manual blood pressure. His skin is warm and dry is not diaphorettic. Peripheral pulses are strong bilaterally. He does not have any discomfort just shortness of breath. He's pursed lip breathing with prolonged respirations. Chest lungs show his decreased aeration bilaterally with bronchospasm bilaterally. There is no stridor. Heart sounds are normal with no murmur. Abdomen is nontender to palpation. Extremities have no venous cords edema he's got chronic skin changes but no edema. Neurological exam awake alert good historian pleasant moderately anxious Constitutional Vital Signs, click to edit/add: Last Vital Signs Temp 97.4 F L 01/05/23 14:05 Pulse 117 H 01/05/23 14:05 Resp 36 H 01/05/23 14:05 BP 160/90 H 01/05/23 14:13 Pulse Ox 98 01/05/23 14:25 O2 Del Method Nasal Cannula 01/05/23 14:25 O2 Flow Rate 3 01/05/23 14:25 Course Vital Signs Vital signs: Vital Signs Temperature 97.4 F L 01/05/23 14:05 Pulse Rate 117 H 01/05/23 14:05 Respiratory Rate 36 H 01/05/23 14:05 Blood Pressure 173/143 H 01/05/23 14:05 Pulse Oximetry 96 01/05/23 14:05 Oxygen Delivery Method Nasal Cannula 01/05/23 14:05 Oxygen Delivery Flow Rate 3 01/05/23 14:05 Temperature 97.4 F L 01/05/23 14:05 Pulse Rate 117 H 01/05/23 14:05 Respiratory Rate 36 H 01/05/23 14:05 Blood Pressure 160/90 H 01/05/23 14:13 Pulse Oximetry 98 01/05/23 14:25 Oxygen Delivery Method Nasal Cannula 01/05/23 14:25 Oxygen Delivery Flow Rate 3 01/05/23 14:25 MDM - SOB/Dyspnea MDM Narrative Medical decision making narrative: this patient well known chronic obstructive pulmonary disease here with exacerbation of his symptoms recently. Including increasing shortness of breath, decreased exercise tolerance, thicker sputum than usual and not responding to outpatient measures. He agrees to be admitted. We'll contact his personal physician whose indicated he'll write admitting orders for him. Discharge Plan Discharge Chief Complaint: Shortness of Breath/Dyspnea Clinical Impression: Acute infective exacerbation of chronic obstructive airway disease Patient Disposition: Admitted as Observation Time of Disposition Decision: 15:06 Prescriptions / Home Meds: No Action albuterol sulfate 2.5 mg /3 mL (0.083 %) solution for nebulization 2.5 mg inhalation Q4H PRN (Reason: shortness of breath or wheezing) atorvastatin 20 mg tablet 20 mg PO DAILY budesonide 0.5 mg/2 mL suspension for nebulization 0.5 mg inhalation DAILY PRN (Reason: sob) Bevespi Aerosphere 9-4.8 mcg HFA aerosol inhaler 2 inh INHALATION Q12H prednisone 10 mg tablet 10 mg PO DAILY Hold Instructions: Resume on 01/07/23. Hold until complete prednisone taper Spiriva with HandiHaler 18 mcg capsule, w/inhalation device 1 cap INHALATION DAILY aspirin 81 mg tablet,chewable 81 mg PO DAILY prednisone 10 mg tablets,dose pack 10 mg PO DAILY Qty: 39 0RF Rx Instructions: 6 PO daily x 3 days, then 4 PO daily x 3 days, then 2 PO daily x 3 days, then 1 PO daily x 3 days levofloxacin 750 mg tablet 750 mg PO DAILY 7 Days Qty: 7 0RF Referrals: Shaikh Hook MD [Primary Care Provider] - 1 week
--- NOTE | 2023-01-05 14:16 | ECG_ITS ---
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: : 1955 Requested By: SHAIKH KAYY Order Number: [id number] Reading MD: CLARA BISHOP Measurements Intervals [place] Rate: 116 P: 90 DC: 152 QRS: 103 QRSD: 74 T: 68 QT: 308 QTc: 377 Interpretive Statements 1120 Sinus tachycardia with occasional supraventricular premature complexes and occasional ventricular premature complexes 5120 Possible right ventricular hypertrophy 0102 ARTIFACT PRESENT 9140 abnormal rhythm ECG Compared to ECG 12/23/2022 13:54:31 Ventricular premature complex(es) now present Right-axis deviation no longer present Electronically Signed On 01-06-2023 7:06:20 EDT by CLARA BISHOP
--- NOTE | 2023-01-05 14:16 | XR_ITS ---
The [address] [address] Patient Name: JAMSHID VARELA MRN: [id number] date: 1955 Sex: M Assigned Patient Location: ED.MAIN Current Patient Location: ED.MAIN Accession/Order Number: [id number] Exam Date: 01/05/2023 14:55 Report Date: 01/05/2023 15:12 At the request of: AISHA HATHAWAY Procedure: XR chest 1V EXAMINATION: XR chest 1V HISTORY: Dyspnea COMPARISON: 12/14/2022 portable chest TECHNIQUE: Portable chest FINDINGS: The lung parenchyma is free of consolidation or infiltrate. No pneumothorax or pleural effusion. The cardiac, mediastinal and hilar contours are normal. The visualized osseous structures exhibit no gross abnormality. XR/XR chest 1V IMPRESSION: No acute cardiopulmonary abnormality. Electronically authenticated by: JEFRY SMITH Date: 01/05/2023 15:12
[2023-01-05] MEDS: IPRATROPIUM/ALBUTEROL SULFATE 3 ML AMPUL.NEB IH ×3 (14:24→22:53)
[2023-01-05] MEDS: MORPHINE SULFATE 2 MG/ML SYRINGE IV (14:29)
[2023-01-05] MEDS: METHYLPREDNISOLONE SOD SUCC PF 125 MG/2 ML VIAL IVP (14:29)
[2023-01-05 14:30] LABS: PCO2 VBG 66.6 mmHg (40.0-52.0)
[2023-01-05 14:33] LABS: Basophils Absolute Auto 0.1 10^3/uL (0.0-0.1); Basophils Percent Auto 0.9 % (0.2-2.0); Eosinophils Absolute Auto 0.1 10^3/uL (0.0-0.7); Eosinophils Percent Auto 0.9 % (0.9-7.0); Hematocrit 54.4 % (42.0-54.0); Hemoglobin 17.2 g/dL (14.0-18.0); Immature Granulocytes Abs Auto 0.42 10^3/uL (0.00-0.03); Immature Granulocytes Pct Auto 3.3 % (0.0-0.5); Lymphocytes Absolute Auto 2.5 10^3/uL (1.2-3.8); Lymphocytes Percent Auto 19.4 % (20.5-60.0); Mean Corpuscular HGB Conc 31.6 g/dL (29.9-35.2); Monocytes Absolute Auto 0.5 10^3/uL (0.3-0.8); Monocytes Percent Auto 4.2 % (1.7-12.0); Neutrophils Absolute Auto 9.2 10^3/uL (1.4-6.5); Neutrophils Percent Auto 71.3 % (43.0-75.0); Platelet Count 288 10^3/uL (150-450); Red Blood Count 5.55 10^6/uL (4.70-6.10); Red Cell Distribution Width 14.2 % (11.0-15.0); White Blood Count 12.9 10^3/uL (4.0-11.0)
[2023-01-05] MEDS: ONDANSETRON PF 4 MG/2 ML VIAL IV (14:45)
[2023-01-05 14:50] LABS: D Dimer 1.78 mg/L FEU (<=0.59)
[2023-01-05 14:57] LABS: Alanine Aminotransferase 75 U/L (16-63); Albumin Globulin Ratio 0.9; Albumin Level 3.6 g/dL (3.4-5.0); Alkaline Phosphatase 98 U/L (46-116); Anion Gap 7.6; Aspartate Amino Transferase 34 U/L (15-37); BUN Creatinine Ratio 20.7; Bilirubin Total 0.7 mg/dL (0.2-1.0); Calcium 9.3 mg/dL (8.5-10.1); Carbon Dioxide 34.9 mmol/L (21.0-32.0); Chloride 102 mmol/L (98-107); Estimated GFR (African America >60 (>=60); Estimated GFR (Non-African Ame >60 (>=60); Globulin 4.2 g/dL; Glucose 109 mg/dL (74-106); Potassium 4.5 mmol/L (3.5-5.1); Sodium 140 mmol/L (136-145); Total Protein 7.8 g/dL (6.4-8.2); Troponin I High Sensitivity 28.4 pg/mL (4.0-76.1)
[2023-01-05] MEDS: NICOTINE 21 MG PATCH TD (15:24)
[2023-01-05] MEDS: ENOXAPARIN SODIUM 40 MG/0.4 ML SYRINGE SUBQ (16:41)
[2023-01-05] MEDS: LACTATED RINGER'S SOLUTION 1,000 ML 100 ML IV (16:41)
[2023-01-05 19:18] LABS: SARS-CoV-2 Ag POSITIVE (NEGATIVE)
[2023-01-05] MEDS: METHYLPREDNISOLONE SOD SUCC PF 40 MG/ML VIAL IVP (21:43)
[2023-01-05] MEDS: ATORVASTATIN CALCIUM 20 MG TABLET PO (21:43)
[2023-01-06] VITALS (21 sets, daily range): BP systolic 124–131; BP diastolic 70–76; PULSE 80–112; RESP 18; TEMP 36.5–36.8; O2SAT 91–98
[2023-01-06] MEDS: LACTATED RINGER'S SOLUTION 1,000 ML 100 ML IV ×2 (02:43→12:37)
[2023-01-06] MEDS: IPRATROPIUM/ALBUTEROL SULFATE 3 ML AMPUL.NEB IH ×3 (03:58→10:54)
[2023-01-06 05:00] LABS: Basophils Absolute Auto 0.1 10^3/uL (0.0-0.1); Basophils Percent Auto 0.4 % (0.2-2.0); Hematocrit 44.7 % (42.0-54.0); Immature Granulocytes Abs Auto 0.42 10^3/uL (0.00-0.03); Immature Granulocytes Pct Auto 3.1 % (0.0-0.5); Lymphocytes Absolute Auto 0.6 10^3/uL (1.2-3.8); Lymphocytes Percent Auto 4.2 % (20.5-60.0); Mean Corpuscular HGB Conc 31.3 g/dL (29.9-35.2); Mean Corpuscular Hemoglobin 30.9 pg (25.9-34.0); Mean Corpuscular Volume 98.7 fL (80.0-94.0); Mean Platelet Volume 11.6 fL (9.5-13.5); Monocytes Absolute Auto 0.2 10^3/uL (0.3-0.8); Monocytes Percent Auto 1.5 % (1.7-12.0); Neutrophils Absolute Auto 12.5 10^3/uL (1.4-6.5); Neutrophils Percent Auto 90.8 % (43.0-75.0); Platelet Count 180 10^3/uL (150-450); Red Blood Count 4.53 10^6/uL (4.70-6.10); Red Cell Distribution Width 13.3 % (11.0-15.0); White Blood Count 13.8 10^3/uL (4.0-11.0)
[2023-01-06] MEDS: METHYLPREDNISOLONE SOD SUCC PF 40 MG/ML VIAL IVP ×3 (06:46→21:48)
[2023-01-06] MEDS: ENOXAPARIN SODIUM 40 MG/0.4 ML SYRINGE SUBQ (08:00)
--- NOTE | 2023-01-06 10:50 | SWNOTE1 ---
SW met with pt to discuss dc needs. Pt lives at home with his niece and her children. Pt voices he is independent and he wears 3 liters of oxygen at home. Pt does not drive, but he rides his bike everywhere. (to store etc.). Pt stated he does not like to be cooped up for long periods. SW let him know for home health he does have to be home bound, or SW would recommend home health services, skilled nurse for a short time. Pt voices understanding. Pt has no concerns about discharge at this time. Pt did let SW know he will likely need a ride home at discharge unless his niece is off work. SW to follow as needed. SW reviewed IMM, important message from medicare, form with pt and he voiced understanding with no questions. Pt signed form, original given to pt and copy placed on chart.
--- NOTE | 2023-01-06 13:10 | PM.HP ---
H&P: HPI History of Present Illness Chief complaint: Shortness of breath Narrative: 67 y o male was seen in office last evening for follow after hospital admission for COPD exacerbation and was noted to have acute on chronic respiratory failure with hypoxia and respiratory distress with increased work of breathing. Patent was sent to ED where he was treated for COPD exacerbation and admitted after initial treatment with inhaled bronchodilators and systemic steroids. Patient has severe COPD with emphysema, and uses 3 L O 2 via NC. In office, his Pulse Ox was 88 % on 5 L O2 via NC. He was tachypneic, unable to speak due to SOB and was using accessory muscles of respiration. He was discharged from [facility] for COPD exacerbation about a 9 days ago and had just finished tapering dose of oral steroids and had one dose of Levaquin remaining. Patient has longstanding hx of non compliance, poor insight into his medical condition and reluctantly agreed to come to ED. Patient reports that he was doing better for a couple of days after hospital discharge but then started to experience worsening SOB, hypoxia, fatigue/tiredness, increased cough with sputum production. Denies fever. Reported feeling nauseous due to cough. I evaluated him today and he appears to have improved significantly and does not appear to be in any respiratory distress. He is however, still SOB at rest and can barely walk to use the restroom and experiences significant respiratory difficulty on minimal exertion. He also tested positive for COVID. He denies any exposure and was doubtful that he has COVID. Review of Systems ROS Status of ROS 10 or more systems reviewed and unremarkable except as noted in history and below [facility] Medical History Family History Father Family history of CHF (congestive heart failure) Family history of hypertension Mother Family history of CHF (congestive heart failure) Family history of COPD (chronic obstructive pulmonary disease) Family history of hypertension Social History Within the past year, how often did you have a drink containing alcohol: monthly or less Within the past year, how many standard drinks containing alcohol did you have on a typical day: 1 or 2 Within the past year, how often did you have six or more drinks on one occasion: never Total score: 0 Score interpretation: A score less than 4 is consistent with normal alcohol consumption. Smoking status: Current every day smoker Non-prescribed substance use: cannabis (any form) Previous occupational history: retired Highest level of school completed/degree received: some college, no degree Are you now , , , , never or living with a partner: In a typical week, how many times do you talk on the telephone with family, friends, or neighbors: twice per week How often do you get together with friends or relatives: twice per week How often do you attend mosque or mandaen services: never Do you belong to any clubs or organizations such as mosque groups unions, [employer] or athletic groups, or school groups: no Total score: 1 Score interpretation: A score of less than or equal to 1 indicates the most socially isolated. Little interest or pleasure in doing things: not at all Feeling down, depressed, or hopeless: several days Feel stressed/tense/nervous/anxious/difficulty sleeping: to some extent Meds Home Medications and Allergies Home Medications Medication Instructions Recorded Confirmed Type albuterol sulfate 2.5 mg/3 mL 2.5 mg inhalation Q6H PRN 12/23/22 01/05/23 History (0.083 %) solution for nebulization shortness of breath or wheezing aspirin 81 mg chewable tablet 81 mg PO DAILY 12/23/22 01/05/23 History atorvastatin 20 mg tablet 20 mg PO BEDTIME 12/23/22 01/05/23 History budesonide 0.5 mg/2 mL suspension 0.5 mg inhalation DAILY PRN 12/23/22 01/05/23 History for nebulization shortness of breath glycopyrrolate 9 mcg-formoterol 2 inh inhalation Q12H 12/23/22 01/05/23 History 4.8 mcg HFA aerosol inhaler (Bevespi Aerosphere) prednisone 10 mg tablet 10 mg PO DAILY 12/23/22 12/23/22 History tiotropium bromide 18 mcg capsule 1 cap inhalation DAILY 12/23/22 01/05/23 History with inhalation device (Spiriva with HandiHaler) prednisone 10 mg tablets in a dose 10 mg PO DAILY #39 ea 12/25/22 Rx pack Allergies Allergy/AdvReac Type Severity Reaction Status Date / Time No Known Drug Allergies Allergy Verified 12/14/22 20:04 Exam Constitutional Vital Signs, click to edit/add: Last Vital Signs Temp 97.7 F 01/06/23 06:00 Pulse 108 H 01/06/23 11:59 Resp 18 01/06/23 06:00 BP 128/76 01/06/23 06:00 Pulse Ox 96 01/06/23 10:54 O2 Del Method Nasal Cannula 01/06/23 10:54 O2 Flow Rate 2 01/06/23 10:54 Documenting provider has reviewed patient's vital signs: yes Common normals: oriented x3 General appearance: cooperative, ill appearing and appears older than stated age Nutritional appearance: cachectic HENMT Common normals: normocephalic and head/scalp atraumatic Head and scalp: normocephalic and atraumatic Eye Common normals: conjunctivae normal and no scleral icterus Conjunctiva: conjunctiva(e) normal Respiratory Effort & inspection: tachypneic, actively coughing, audible wheezes and prolonged expiratory phase Auscultation: wheezes and diminished lung sounds Other: Diminished air entry due to severe bronchospasm Cardio Common normals: S1 normal heart sound and S2 normal heart sound Rate: tachycardic Heart sounds: S1 normal and S2 normal GI Common normals: Normal to inspection, nondistended, normoactive bowel sounds present, soft to palpation, non-tender and no hepatosplenomegaly Palpation: soft and no hepatosplenomegaly Extremity Common normals: no clubbing, cyanosis or edema Neuro Common normals: oriented x3, moves all extremities and no focal motor deficits Psych Common normals: mental status grossly normal, denies hallucinations, denies homicidal ideation and denies suicidal ideation Results Labs Labs: Short CBC 01/05/23 01/06/23 Range/Units 14:12 04:05 WBC 12.9 H 13.8 H (4.0-11.0) 10^3/uL Hgb 17.2 14.0 (14.0-18.0) g/dL Hct 54.4 H 44.7 (42.0-54.0) % Plt Count 288 180 (150-450) 10^3/uL BMP 01/05/23 14:12 Sodium 140 Potassium 4.5 Chloride 102 Carbon Dioxide 34.9 H BUN 19.0 H Creatinine 0.92 Glucose 109 H Calcium 9.3 Liver Function 01/05/23 Range/Units 14:12 Total Bilirubin 0.7 (0.2-1.0) mg/dL AST 34 (15-37) U/L ALT 75 H (16-63) U/L Alkaline Phosphatase 98 (46-116) U/L Albumin 3.6 (3.4-5.0) g/dL ABG ABG results: 01/05/23 14:12 VBG pH 7.350 VBG pCO2 66.6 H Assessment and Plan Assessment and Plan (1) Sepsis: Assessment and Plan: SIRS Criteria (HR> 90, WBC> 13, RR> 20) with respiratory failure. P/w increased work of breathing, was using accessory muscles of respiration, with worsening hypoxia. Source of infection is COVID 19 PNA Patient is improving and except for tachycardia, has stable hemodynamics. Stop IVF as good PO intake. Qualifiers: Acute respiratory failure type: with hypoxia Sepsis acute organ dysfunction status: with acute organ dysfunction Sepsis type: sepsis due to unspecified organism Severe sepsis acute organ dysfunction type: acute respiratory failure (2) Acute infective exacerbation of chronic obstructive airway disease: Assessment and Plan: Due to COVID -19 Pneumonia, non compliance with medications and current smoking. He is back to his baseline O2 requirement of 3 L O2. However, he is still significantly bronchospastic, with audible wheeze on exam. C/w IV solumedrol and Ventolin HFA q4 Patient is still SOB at rest and experiences worsening hypoxia on minimal exertion. C/w current treatment. Given his severe COPD, degree of hypoxia, recent hospital admission, multiple readmissions for COPD in past 6 months, I suspect he will require 2-3 days of inpatient hospital stay for close monitoring, treatment of his underlying acute illness as he is at high risk of poor outcome and clinical deterioration (3) Acute and chronic respiratory failure with hypoxia: Assessment and Plan: P/w worsening hypoxia, and required 5 L O2 via NC on admission. Now down to baseline. Given his severe COPD, I think, poor functional status and persistent hypoxia and dyspnea at baseline, his O2 prescription will be changed to allow him to increase O2 upto 4-5 L on activity as needed. Also will add portable O2 for him to help him attend outpatient physician visits. (4) COVID-19: Assessment and Plan: Severe COPD, with sepsis. Not a good candidate for Paxlovid or REMDISVIR as symptoms onset > 5 days. Improving clinically. C/w systemic steroids. (5) Pulmonary cachexia due to chronic obstructive pulmonary disease: Assessment and Plan: Reports progressive functional decline, along with weight loss. Has lost over 20 lbs in past 1-2 months. Has proximal muscle wasting, bitemporal muscle wasting. Added ensure. Will need outpatient material handler 2nd shift consult (6) Current smoker: Assessment and Plan: Discussed smoking cessation, counseled on the importance of not smoking. (7) Leukocytosis: Assessment and Plan: Likely due to sepsis and possibly from steroids use too. Monitor. Plan Inpatient hospital anticipate 2-3 days of hospital stay as he failed outpatient treatment (recent observation for COPD exacerbation within past 10 days) and returned with sepsis, respiratory failure while finishing tapering course of oral steroids. He is at high risk of poor prognosis and clinical deterioration due to his severe COPD, recurrent hospital admissions for COPD, chronic current use of steroids for his COPD, poor functional status and nutritional status and needs close clinical monitoring.
--- NOTE | 2023-01-06 15:38 | SWNOTE1 ---
Doctor did come see pt and wanted pt to have 3 liters at rest and 5 liters with activity. Nursing completed walk test with pt and he did not dip below 90% with activity with oxygen off. SW let doctor know. Insurance will not cover unless pt qualifies for 5 liters with activity. Pt already has 3 liters nasal canula at home continuous.
[2023-01-06] MEDS: ALBUTEROL SULFATE 2.5 MG/3 ML VIAL NEB IH ×2 (15:47→20:36)
[2023-01-06] MEDS: NICOTINE 21 MG PATCH TD (16:36)
[2023-01-06] MEDS: ACETAMINOPHEN 325 MG TABLET 650 MG PO (20:02)
[2023-01-06] MEDS: POLYETHYLENE GLYCOL 3350 17 GM POWDER PACKET PO (21:47)
[2023-01-06] MEDS: ATORVASTATIN CALCIUM 20 MG TABLET PO (21:48)
[2023-01-07] VITALS (23 sets, daily range): BP systolic 132–145; BP diastolic 76–88; PULSE 67–117; RESP 18–20; TEMP 36.5–36.8; O2SAT 90–98; BMI 23.3
[2023-01-07] MEDS: ALBUTEROL SULFATE 2.5 MG/3 ML VIAL NEB IH ×4 (03:36→21:13)
[2023-01-07] MEDS: METHYLPREDNISOLONE SOD SUCC PF 40 MG/ML VIAL IVP ×3 (05:58→21:56)
[2023-01-07] MEDS: ENOXAPARIN SODIUM 40 MG/0.4 ML SYRINGE SUBQ (08:03)
[2023-01-07] MEDS: ACETAMINOPHEN 325 MG TABLET 650 MG PO (11:28)
[2023-01-07] MEDS: DOCUSATE SODIUM 100 MG CAPSULE PO (13:22)
--- NOTE | 2023-01-07 15:12 | PM.IMPN1 ---
Progress Note: A&P Assessment and Plan (1) Sepsis: Assessment and Plan: Due to COVID. Stable hemodynamics. Qualifiers: Sepsis type: sepsis due to unspecified organism Sepsis acute organ dysfunction status: with acute organ dysfunction Severe sepsis acute organ dysfunction type: acute respiratory failure Acute respiratory failure type: with hypoxia (2) Acute infective exacerbation of chronic obstructive airway disease: Assessment and Plan: Continues to experience dyspnea, even at rest. Patient has diminished air entry, exp wheezing and prolonged exp phase. He gets severely out of breath on minimal exertion. C/w current treatment. He is on IV steroids, Ventolin HFA. Added Mucinex. (3) Acute and chronic respiratory failure with hypoxia: Assessment and Plan: He is back to his baseline O2 requirement but experiencing sig dyspnea, even at rest. Will order CT chest to assess lung parenchyma If worsening infiltrates, its possible he may have developed superimposed bacterial Pneumonia and in that case, he would need to be on broad spectrum abx given that he has had recent hospital admissions, prolonged use of steroids. (4) COVID-19: Assessment and Plan: On IV steroids. Not a candidate for Remdisvir and Paxlovid. CT chest ordered. (5) Pulmonary cachexia due to chronic obstructive pulmonary disease: Assessment and Plan: Added ensure. Weight loss, poor PO intake, muscle wasting due to end stage COPD. (6) Current smoker: Assessment and Plan: Nicotine patch. (7) Leukocytosis: Assessment and Plan: Likely reactive. On Azithromycin. Plan Will remain hospitalized, as persistent dyspnea and no improvement in his resp symptoms. He is at high risk of clinical deterioration due to his comorbidities. Internal Medicine - PN: Subj Subjective Interval history: Seen and examined. No events overnight. Reports feeling more short of breath today. Also complaining of constipation. Exam Constitutional Vital Signs, click to edit/add: Last Vital Signs Temp 98.3 F 01/07/23 13:23 Pulse 97 H 01/07/23 14:32 Resp 20 01/07/23 13:23 BP 132/80 01/07/23 13:23 Pulse Ox 92 L 01/07/23 13:23 O2 Del Method Nasal Cannula 01/07/23 13:23 O2 Flow Rate 2 01/07/23 13:23 Documenting provider has reviewed patient's vital signs: yes Common normals: oriented x3 General appearance: cooperative, ill appearing and appears older than stated age Nutritional appearance: cachectic HENMT Common normals: normocephalic and head/scalp atraumatic Head and scalp: normocephalic and atraumatic Eye Common normals: conjunctivae normal and no scleral icterus Conjunctiva: conjunctiva(e) normal Respiratory Effort & inspection: tachypneic, actively coughing, audible wheezes and prolonged expiratory phase Auscultation: wheezes and diminished lung sounds Other: Diminished air entry due to severe bronchospasm Cardio Common normals: S1 normal heart sound and S2 normal heart sound Rate: tachycardic Heart sounds: S1 normal and S2 normal GI Common normals: Normal to inspection, nondistended, normoactive bowel sounds present, soft to palpation, non-tender and no hepatosplenomegaly Palpation: soft and no hepatosplenomegaly Extremity Common normals: no clubbing, cyanosis or edema Neuro Common normals: oriented x3, moves all extremities and no focal motor deficits Psych Common normals: mental status grossly normal, denies hallucinations, denies homicidal ideation and denies suicidal ideation
[2023-01-07] MEDS: NICOTINE 21 MG PATCH TD (16:16)
--- NOTE | 2023-01-07 17:27 | CT_ITS ---
The [address] [address] Patient Name: JAMSHID VARELA MRN: [id number] date: 1955 Sex: M Assigned Patient Location: Current Patient Location: Accession/Order Number: [id number] Exam Date: 01/07/2023 17:22 Report Date: 01/07/2023 18:25 At the request of: SHAIKH KAYY Procedure: CT chest wo con EXAM: CT chest wo con REASON FOR EXAM: Male, 67 years, SOB/pneumonia. TECHNIQUE: Computed tomography of the chest is performed in the axial projection from the lung apices to the upper abdomen. Sagittal and coronal reconstructed images are performed. Dose reduction techniques were achieved by using automated exposure control and/or adjustment of mA and/or KVP according to patient size and/or use of iterative reconstruction technique. Study was performed without IV contrast. COMPARISON: Chest radiograph 01/05/2023, CT chest 12/23/2022 FINDINGS: CT CHEST: There are diffuse emphysematous changes. Bronchiectasis is seen bilaterally, similar to the prior study. There is no infiltrate, nodule, consolidation or pleural effusion. No mediastinal or hilar adenopathy. No pericardial effusion identified. Heart size is normal. Coronary artery calcifications are present. There is calcification of the aortic knob. There are mild degenerative changes within the spine. No acute abnormality is seen in the visualized upper abdomen. CT/CT chest wo con IMPRESSION: Diffuse emphysematous changes and bronchiectasis. No focal consolidation. No significant change from recent chest CTA of 12/23/2022. Electronically authenticated by: SHAHIDA SCHAFER Date: 01/07/2023 18:25
--- NOTE | 2023-01-07 21:18 | RESP.RT ---
Titrated to 3 lpm
--- NOTE | 2023-01-07 21:20 | RESP.RT ---
Titrated to 3 l pm
[2023-01-07] MEDS: ATORVASTATIN CALCIUM 20 MG TABLET PO (21:56)
[2023-01-08] VITALS (14 sets, daily range): BP systolic 131–167; BP diastolic 79–96; PULSE 75–101; RESP 18–22; TEMP 36.5–36.6; O2SAT 94–98; BMI 23.3
[2023-01-08] MEDS: ALBUTEROL SULFATE 2.5 MG/3 ML VIAL NEB IH ×3 (05:12→20:23)
[2023-01-08] MEDS: METHYLPREDNISOLONE SOD SUCC PF 40 MG/ML VIAL IVP ×3 (05:20→21:18)
--- NOTE | 2023-01-08 07:52 | CM.NOTE ---
Rounds made with Dr. Garcia, no discharge today. Dr. Garcia will order PT for pt.
--- NOTE | 2023-01-08 09:16 | P.PN_ITS ---
Progress Note: Subjective Subjective Interval history: Patient unchanged this am. Continues to have SOB and chest tightness. Feels like not moving much air. Severe SOB with minimal exertion and difficult to ambulate around room. Afebrile. Normal appetite and no emesis or diarrhea. No chest pain or palpitations. Exam Constitutional Vital Signs, click to edit/add: Last Vital Signs Temp 97.8 F 01/08/23 05:10 Pulse 94 H 01/08/23 08:44 Resp 18 01/08/23 05:12 BP 167/96 H 01/08/23 05:10 Pulse Ox 98 01/08/23 05:12 O2 Del Method Nasal Cannula 01/08/23 05:12 O2 Flow Rate 3 01/08/23 05:12 Documenting provider has reviewed patient's vital signs: yes Common normals: no apparent distress, oriented x3 and alert HENMT Common normals: normocephalic Eye Common normals: PERRL and EOMs intact bilaterally Respiratory Auscultation: wheezes and diminished lung sounds Cardio Common normals: regular rate, regular rhythm, no gallops, no murmurs and no rub GI Common normals: Normal to inspection, nondistended, normoactive bowel sounds present and non-tender Extremity Common normals: no pedal edema Progress Note: A&P Assessment and Plan (1) COVID-19: (2) Sepsis: Qualifiers: Sepsis type: sepsis due to unspecified organism Sepsis acute organ dysfunction status: with acute organ dysfunction Severe sepsis acute organ dysfunction type: acute respiratory failure Acute respiratory failure type: w ith hypoxia (3) Acute and chronic respiratory failure with hypoxia: (4) Acute infective exacerbation of chronic obstructive airway disease: Plan Patient slow to improve. Continued SOB and poor air movement on auscultation. Continue steroids and breathing treatments. Continue PEP. Increase ambulation. Possible discharge in next 1-2 days.
[2023-01-08] MEDS: ENOXAPARIN SODIUM 40 MG/0.4 ML SYRINGE SUBQ (09:43)
[2023-01-08] MEDS: ALPRAZOLAM 0.5 MG TABLET PO (11:15)
[2023-01-08] MEDS: ENSURE CLEAR 237 ML LIQUID PO (14:49)
[2023-01-08] MEDS: NICOTINE 21 MG PATCH TD (14:50)
[2023-01-08] MEDS: ACETAMINOPHEN 325 MG TABLET 650 MG PO (20:04)
--- NOTE | 2023-01-08 20:33 | DIETREC ---
Recommend d/c Ensure supplement. Pt meets his nutritional needs via food AEB 100% PO intakes.
[2023-01-08] MEDS: ATORVASTATIN CALCIUM 20 MG TABLET PO (21:18)
[2023-01-09 04:35] VITALS: PULSE 88; RESP 20; O2SAT 96
[2023-01-09] MEDS: ALBUTEROL SULFATE 2.5 MG/3 ML VIAL NEB IH ×2 (04:35→11:30)
[2023-01-09 04:48] VITALS: PULSE 94; RESP 20; O2SAT 98
[2023-01-09 06:00] VITALS: BP 134/86; PULSE 88; RESP 18; TEMP 36.5; O2SAT 97
[2023-01-09] MEDS: METHYLPREDNISOLONE SOD SUCC PF 40 MG/ML VIAL IVP ×2 (06:08→14:29)
[2023-01-09] MEDS: ENOXAPARIN SODIUM 40 MG/0.4 ML SYRINGE SUBQ (08:41)
[2023-01-09] MEDS: ENSURE CLEAR 237 ML LIQUID PO (08:42)
[2023-01-09] MEDS: DOCUSATE SODIUM 100 MG CAPSULE PO (08:42)
[2023-01-09] MEDS: ALPRAZOLAM 0.5 MG TABLET PO ×2 (08:53→16:24)
[2023-01-09 09:24] LABS: Basophils Percent Auto 0.2 % (0.2-2.0); Eosinophils Percent Auto 0.1 % (0.9-7.0); Hematocrit 44.4 % (42.0-54.0); Hemoglobin 14.3 g/dL (14.0-18.0); Immature Granulocytes Abs Auto 0.27 10^3/uL (0.00-0.03); Immature Granulocytes Pct Auto 1.9 % (0.0-0.5); Lymphocytes Absolute Auto 0.5 10^3/uL (1.2-3.8); Lymphocytes Percent Auto 3.5 % (20.5-60.0); Mean Corpuscular HGB Conc 32.2 g/dL (29.9-35.2); Mean Corpuscular Hemoglobin 31.3 pg (25.9-34.0); Mean Corpuscular Volume 97.2 fL (80.0-94.0); Mean Platelet Volume 11.3 fL (9.5-13.5); Monocytes Absolute Auto 0.5 10^3/uL (0.3-0.8); Monocytes Percent Auto 3.1 % (1.7-12.0); Neutrophils Absolute Auto 13.2 10^3/uL (1.4-6.5); Neutrophils Percent Auto 91.2 % (43.0-75.0); Platelet Count 164 10^3/uL (150-450); Red Blood Count 4.57 10^6/uL (4.70-6.10); Red Cell Distribution Width 14.2 % (11.0-15.0); White Blood Count 14.4 10^3/uL (4.0-11.0)
[2023-01-09 09:35] LABS: Alanine Aminotransferase 95 U/L (16-63); Albumin Globulin Ratio 0.9; Albumin Level 2.8 g/dL (3.4-5.0); Alkaline Phosphatase 88 U/L (46-116); Anion Gap 7.1; Aspartate Amino Transferase 37 U/L (15-37); BUN Creatinine Ratio 30.4; Bilirubin Total 0.3 mg/dL (0.2-1.0); Calcium 8.6 mg/dL (8.5-10.1); Carbon Dioxide 35.4 mmol/L (21.0-32.0); Chloride 102 mmol/L (98-107); Estimated GFR (African America >60 (>=60); Estimated GFR (Non-African Ame >60 (>=60); Globulin 3.2 g/dL; Glucose 166 mg/dL (74-106); Potassium 4.5 mmol/L (3.5-5.1); Sodium 140 mmol/L (136-145)
[2023-01-09 11:31] VITALS: O2SAT 94
[2023-01-09] MEDS: NICOTINE 21 MG PATCH TD (14:29)
--- NOTE | 2023-01-09 15:40 | P.DS_ITS ---
DS: Providers Provider Date of admission: 01/05/23 16:25 Primary care physician: Shaikh Monster MD Admitting clinician: Shaikh Monster Attending physician on admission: Shaikh Monster Attending physician on discharge: Shaikh Monster Discharging clinician: Shaikh Monster Anticipated date of discharge: 01/09/23 DS: Diagnosis Discharge Diagnosis (1) COVID-19: Assessment and plan: Back to baseline O2 requirement. No focal consolidation on CT chest. (2) Sepsis: Assessment and plan: Due to COVID. Resolved. Qualifiers: Sepsis type: sepsis due to unspecified organism Sepsis acute organ dysfunction status: with acute organ dysfunction Severe sepsis acute organ dysfunction type: acute respiratory failure Acute respiratory failure type: with hypoxia (3) Acute and chronic respiratory failure with hypoxia: Assessment and plan: P/w acute on chronic resp failure with hypoxia. He is back to his baseline O2. (4) Acute infective exacerbation of chronic obstructive airway disease: Assessment and plan: Exacerbated due to COVID. Improved from before. Still has dyspnea, diminished air entry and wheezing on exam but unfortunately due to his severe COPD, he is never not dyspneic and he appears to be more or less close to his baseline. DS: Summary Hospital Course Hospital Course: Patient was sent to ED from office for Acute on chronic respiratory failure with hypoxia, increased work of breathing and was admitted for COPD exacerbation. W.u showed evidence of COVID-19 likely responsible for causing his worsening hypoxia and COPD exacerbation. Patient was treated with IV solumedrol, inhaled bronchodilators and Azithromycin. He continued to experience dyspnea, with little/diminished air movement on auscultation and persistent wheezing. CT chest was ordered to r/p superimposed bacterial PNA that did not show any appreciable consolidative process. He has improved considerably and is back to his baseline O2 requirement. He still experiences dyspnea on minimal exertion which is not much different from his baseline. Patient has severe COPD, on chronic steroid therapy and I briefly discussed with him to consider palliative care given his advanced lung disease. He will be discharged on oral Prednisone 60 mg daily until he is seen by me in office. Based on his symptoms, I will then wean him off of Prednisone gradually to his home/outpatient dose of 10 mg daily. Pt was discharged on oral hydroxyzine to help manage his anxiety - which he thinks also contributes to his symptoms. Again, discussed smoking cessation in detail and that he absolutely must stop smoking. Time spent discussing smoking cessation with patient: more than 10 minutes Status at Discharge Functional status at discharge: independent ambulation Overall status at discharge: patient is back to baseline Time Spent with Patient Time attestation: Total time spent providing and/or coordinating discharge services: Time spent: greater than 30 minutes Exam Constitutional Vital Signs, click to edit/add: Last Vital Signs Temp 97.7 F 01/09/23 06:00 Pulse 88 01/09/23 06:00 Resp 18 01/09/23 06:00 BP 134/86 01/09/23 06:00 Pulse Ox 94 L 01/09/23 11:31 O2 Del Method Nasal Cannula 01/09/23 11:31 O2 Flow Rate 3 01/09/23 11:31 Documenting provider has reviewed patient's vital signs: yes Common normals: oriented x3 General appearance: cooperative, ill appearing and appears older than stated age Nutritional appearance: cachectic HENMT Common normals: normocephalic and head/scalp atraumatic Head and scalp: normocephalic and atraumatic Eye Common normals: conjunctivae normal and no scleral icterus Conjunctiva: conjunctiva(e) normal Respiratory Common normals: no use of accessory muscles Effort & inspection: audible wheezes and prolonged expiratory phase Auscultation: wheezes and diminished lung sounds Cardio Common normals: S1 normal heart sound and S2 normal heart sound Rate: regular rate Heart sounds: S1 normal and S2 normal GI Common normals: Normal to inspection, nondistended, normoactive bowel sounds present, soft to palpation, non-tender and no hepatosplenomegaly Palpation: soft and no hepatosplenomegaly Extremity Common normals: no clubbing, cyanosis or edema Neuro Common normals: oriented x3, moves all extremities and no focal motor deficits Psych Common normals: mental status grossly normal, denies hallucinations, denies homicidal ideation and denies suicidal ideation DS: Data Data Completed and Pending Labs on day of discharge: Labs from last 24 hours 01/09/23 09:15 WBC 14.4 H RBC 4.57 L Hgb 14.3 Hct 44.4 MCV 97.2 H MCH 31.3 MCHC 32.2 RDW 14.2 Plt Count 164 MPV 11.3 Neut % (Auto) 91.2 H Lymph % (Auto) 3.5 L [place] % (Auto) 3.1 Eos % (Auto) 0.1 L Baso % (Auto) 0.2 Neut # (Auto) 13.2 H Lymph # (Auto) 0.5 L [place] # (Auto) 0.5 Eos # (Auto) 0.0 Baso # (Auto) 0.0 Abs Immat Gran (auto) 0.27 H Imm/Tot Granulo (auto) 1.9 H Sodium 140 Potassium 4.5 Chloride 102 Carbon Dioxide 35.4 H Anion Gap 7.1 BUN 24.0 H Creatinine 0.79 Est GFR ( Amer) >60 Est GFR (Non-Af Amer) >60 BUN/Creatinine Ratio 30.4 Glucose 166 H Calcium 8.6 Total Bilirubin 0.3 AST 37 ALT 95 H Alkaline Phosphatase 88 Total Protein 6.0 L Albumin 2.8 L Globulin 3.2 Albumin/Globulin Ratio 0.9 Discharge Plan Discharge Disposition: Home, Self-Care Discharge Medications: New prednisone 20 mg tablet 60 mg PO DAILY 10 Days Qty: 30 0RF hydroxyzine HCl 25 mg tablet 25 mg PO Q8H PRN (Reason: anxiety) Qty: 30 0RF Continued albuterol sulfate 2.5 mg /3 mL (0.083 %) solution for nebulization 2.5 mg inhalation Q6H PRN (Reason: shortness of breath or wheezing) atorvastatin 20 mg tablet 20 mg PO BEDTIME Bevespi Aerosphere 9-4.8 mcg HFA aerosol inhaler 2 inh INHALATION Q12H aspirin 81 mg tablet,chewable 81 mg PO DAILY Changed budesonide 0.5 mg/2 mL suspension for nebulization 0.5 mg inhalation BID PRN (Reason: shortness of breath) Qty: 0 0RF Discontinued prednisone 10 mg tablet 10 mg PO DAILY Hold Instructions: Resume on 01/07/23. Hold until complete prednisone taper Spiriva with HandiHaler 18 mcg capsule, w/inhalation device 1 cap INHALATION DAILY Activity: increase activity as tolerated Diet: advance to your usual diet Patient Instructions: Prednisone (By mouth), Hydroxyzine (By mouth), COPD ( Chronic Obstructive Pulmonary Disease) (DC) Forms: Portal Instructions Follow Up Appointments: PCP in one week Raisin Washer in 1-2 week Call Wednesday for follow ups since today is wednesday)
--- NOTE | 2023-01-11 12:16 | CM.DCFOLLOWU ---
Person spoke with: Boris How are you feeling? A little better, went to garbage pick up man scripts and hydroxyzine was not covered and couldn't garbage pick up man. Called Geri Cardoso and with discount card cost 19.18- pt will garbage pick up man and pay How is your pain? None Did you understand your discharge instructions? Yes Do you have any questions about your discharge instructions? No Were you given any prescriptions at discharge? Yes Were you able to get your prescriptions filled? Trouble with picking up- straightened everything out with Geri Cardoso today when I called. Called Boris back and ok to garbage pick up man medication Do you understand how to take your medications as ordered? Yes Do you have any questions about your follow up appointment and do you plan to keep your follow up appointment? Scheduled today Is there anything else that you would like to discuss? Questions/Comments/Concerns/Other:
== END 2023-01-09 16:25 | disposition home or self-care (01) | DRG 871 ==
LOC: ER 15:07 → MS 15:43
PROVIDERS: Admitting Provider Internal Medicine; Emergency Provider Emergency Medicine Emergency Medical Services; PCP Internal Medicine; Visit Provider Internal Medicine
DX: A41.89 Other specified sepsis (principal); J12.82 Pneumonia due to coronavirus disease 2019; U07.1 COVID-19; J96.21 Acute and chronic respiratory failure with hypoxia; R64 Cachexia; Z99.81 Dependence on supplemental oxygen; R65.20 Severe sepsis without septic shock; F17.210 Nicotine dependence, cigarettes, uncomplicated; Z79.82 Long term (current) use of aspirin; Z79.899 Other long term (current) drug therapy; J43.9 Emphysema, unspecified; Z91.148 Patient's other noncompliance with medication regimen for other reason; K59.00 Constipation, unspecified; Z79.52 Long term (current) use of systemic steroids; F41.9 Anxiety disorder, unspecified; Z79.51 Long term (current) use of inhaled steroids; Z68.23 Body mass index [BMI] 23.0-23.9, adult
CPT/HCPCS: 36415; 71045; 71250; 80053; 82800; 83880; 84484; 85025; 85378; 87811; 93005; 94640; 94667; 94668; 94761; 96372; 96374; 96375; 96376; 99285; J2920; J2930

== ENCOUNTER 2023-01-30 22:16 | Observation (INO) | payer MEDICARE, MEDICAID, SELFPAY ==
[2023-01-30 22:28] VITALS: BP 180/100; PULSE 115; RESP 24; TEMP 37.1; O2SAT 97; BMI 24.1
--- NOTE | 2023-01-30 22:52 | ECG_ITS ---
The [facility] Test Date: 2023-01-30 Pat Name: JAMSHID VARELA Department: Room: - Gender: Male Agency Legal Counsel: : 1955 Requested By: SHAIKH KAYY Order Number: [id number] Reading MD: CLARA BISHOP Measurements Intervals [place] Rate: 116 P: 90 DE: 136 QRS: 97 QRSD: 82 T: 64 QT: 296 QTc: 365 Interpretive Statements 1120 Sinus tachycardia 7102 Moderate right axis deviation 0102 ARTIFACT PRESENT 9140 abnormal rhythm ECG Compared to ECG 01/05/2023 14:08:42 Right-axis deviation now present Ventricular premature complex(es) no longer present Electronically Signed On 01-31-2023 18:43:03 EDT by CLARA BISHOP
--- NOTE | 2023-01-30 23:00 | XR_ITS ---
The [address] [address] Patient Name: JAMSHID VARELA MRN: [id number] date: 1955 Sex: M Assigned Patient Location: ER Current Patient Location: ER Accession/Order Number: [id number] Exam Date: 01/30/2023 23:52 Report Date: 01/31/2023 00:19 At the request of: ANDREW LUCERO Procedure: XR chest 1V EXAMINATION:XR chest 1V INDICATION:SOB COMPARISON:01/05/2023 TECHNIQUE:2 views of the chest are submitted. FINDINGS: The cardiomediastinal silhouette is not enlarged. The pulmonary vascularity is within normal limits. Lungs are hyperinflated consistent with COPD. No acute infiltrates have developed. There is no costophrenic angle blunting. XR/XR chest 1V IMPRESSION: No acute cardiopulmonary process in the chest. Electronically authenticated by: BENNY ORONA Date: 01/31/2023 00:19
--- NOTE | 2023-01-30 23:00 | ECG_ITS ---
The [facility] Test Date: 2023-01-30 Pat Name: JAMSHID VARELA Department: Room: - Gender: Male Preschool Aide: : 1955 Requested By: SHAIKH KAYY Order Number: [id number] Reading MD: CLARA BISHOP Measurements Intervals [place] Rate: 117 P: 90 [place]: 146 QRS: 97 QRSD: 74 T: 70 QT: 300 QTc: 370 Interpretive Statements 1120 Sinus tachycardia 1470 with occasional supraventricular premature complexes 7102 Moderate right axis deviation 8003 Consistent with pulmonary disease 0102 ARTIFACT PRESENT 9150 abnormal ECG Compared to ECG 01/30/2023 22:46:33 No significant changes Electronically Signed On 01-31-2023 18:43:13 EDT by CLARA BISHOP
--- NOTE | 2023-01-30 23:01 | ED.SOB1 ---
HPI - SOB/Dyspnea General Chief Complaint: Shortness of Breath/Dyspnea Stated Complaint: SOB Time Seen by Provider: 01/30/23 22:57 Source: patient Source comment: GRANDDAUGHTER WITH PATIENT Mode of arrival: Wheelchair Limitations: physical limitation Limitations comment: sob, WEAK History of Present Illness HPI Narrative: [age] year old male presents for difficulty breathing. He's been feeling this way all day. He has a history of chronic obstructive pulmonary disease and is on 3 L of oxygen at home. Exertion makes his shortness of breath worse. He used his nebulizer but it didn't help much and he thinks he'll need to be admitted. Symptoms have been continuous. Related Data Home Medications Medication Instructions Recorded Confirmed albuterol sulfate 2.5 mg/3 mL 2.5 mg inhalation Q6H PRN 12/23/22 01/05/23 (0.083 %) solution for nebulization shortness of breath or wheezing aspirin 81 mg chewable tablet 81 mg PO DAILY 12/23/22 01/05/23 atorvastatin 20 mg tablet 20 mg PO BEDTIME 12/23/22 01/05/23 glycopyrrolate 9 mcg-formoterol 2 inh inhalation Q12H 12/23/22 01/05/23 4.8 mcg HFA aerosol inhaler (Bevespi [employer]pe[employer]phere) Previous Rx's Medication Instructions Recorded budesonide 0.5 mg/2 mL suspension 0.5 mg (2 mL) inhalation BID PRN 01/09/23 for nebulization shortness of breath #0 mL hydroxyzine HCl 25 mg tablet 25 mg PO Q8H PRN anxiety #30 tabs 01/09/23 prednisone 20 mg tablet 60 mg PO DAILY 10 days #30 tabs 01/09/23 Allergies Allergy/AdvReac Type Severity Reaction Status Date / Time No Known Drug Allergies Allergy Verified 12/14/22 20:04 Review of Systems ROS Narrative A ten point review of systems is negative except as noted above. 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) Asthma exacerbation with COPD (chronic obstructive pulmonary disease) ?J44.1 - Chronic obstructive pulmonary disease with (acute) exacerbation (ICD-10) ?J45.901 - Unspecified asthma with (acute) exacerbation (ICD-10) Chronic respiratory failure with hypoxia ?J96.11 - Chronic respiratory failure with hypoxia (ICD-10) COPD (chronic obstructive pulmonary disease) ?J44.9 - Chronic obstructive pulmonary disease, unspecified (ICD-10) COPD with acute exacerbation ?J44.1 - Chronic obstructive pulmonary disease with (acute) exacerbation (ICD-10) COVID-19 ?U07.1 - COVID-19 (ICD-10) Current smoker ?F17.200 - Nicotine dependence, unspecified, uncomplicated (ICD-10) Leukocytosis ?D72.829 - Elevated white blood cell count, unspecified (ICD-10) Pulmonary cachexia due to chronic obstructive pulmonary disease ?J44.9 - Chronic obstructive pulmonary disease, unspecified (ICD-10) ?R64 - Cachexia (ICD-10) Family History Father Family history of CHF (congestive heart failure) Family history of hypertension Mother Family history of CHF (congestive heart failure) Family history of COPD (chronic obstructive pulmonary disease) Family history of hypertension Social History Within the past year, how often did you have a drink containing alcohol: monthly or less Within the past year, how many standard drinks containing alcohol did you have on a typical day: 1 or 2 Within the past year, how often did you have six or more drinks on one occasion: never Total score: 0 Score interpretation: A score less than 4 is consistent with normal alcohol consumption. Smoking status: Light tobacco smoker Non-prescribed substance use: cannabis (any form) Previous occupational history: retired Highest level of school completed/degree received: some college, no degree Are you now , , , , never or living with a partner: In a typical week, how many times do you talk on the telephone with family, friends, or neighbors: twice per week How often do you get together with friends or relatives: twice per week How often do you attend congregational or cheondoism services: never Do you belong to any clubs or organizations such as congregational groups unions, fraternal or athletic groups, or school groups: no Total score: 1 Score interpretation: A score of less than or equal to 1 indicates the most socially isolated. Little interest or pleasure in doing things: not at all Feeling down, depressed, or hopeless: several days Feel stressed/tense/nervous/anxious/difficulty sleeping: to some extent Exam Narrative Exam Narrative: Nurses note and vital signs reviewed and patient is not hypoxic. General: The patient appears well and in no apparent distress. Patient is resting comfortably on cart. Skin: Warm, dry, no pallor noted. There is no rash noted. Head: Normocephalic, atraumatic Eye: Normal conjunctiva, no drainage, EOMI. PERRL Ears, Nose, Mouth, and Throat: oral mucosa is moist. Nares patent. Mouth without vesicles. Ear canals patent. Tm's without Erythema Cardiovascular: Regular Rate and Rhythm,, tachycardic Respiratory: bilateral rhonchi with poor air movement, he is able to speak in short sentences. Back: non-tender GI: soft and nontender Musculoskeletal: The patient has no evidence of calf tenderness, no pitting edema, symmetrical pulses noted bilaterally Neurological: A&O, normal speech Psychiatric: Cooperative Constitutional Vital Signs, click to edit/add: Last Vital Signs Temp 98.7 F 01/30/23 22:28 Pulse 112 H 01/30/23 23:32 Resp 19 01/30/23 23:32 BP 180/100 H 01/30/23 22:28 Pulse Ox 100 01/30/23 23:32 O2 Del Method Nasal Cannula 01/30/23 23:32 O2 Flow Rate 3 01/30/23 23:32 Course Vital Signs Vital signs: Vital Signs Temperature 98.7 F 01/30/23 22:28 Pulse Rate 115 H 01/30/23 22:28 Respiratory Rate 24 01/30/23 22:28 Blood Pressure 180/100 H 01/30/23 22:28 Pulse Oximetry 97 01/30/23 22:28 Oxygen Delivery Method Nasal Cannula 01/30/23 22:28 Oxygen Delivery Flow Rate 3 01/30/23 22:28 Temperature 98.7 F 01/30/23 22:28 Pulse Rate 112 H 01/30/23 23:32 Respiratory Rate 19 01/30/23 23:32 Blood Pressure 180/100 H 01/30/23 22:28 Pulse Oximetry 100 01/30/23 23:32 Oxygen Delivery Method Nasal Cannula 01/30/23 23:32 Oxygen Delivery Flow Rate 3 01/30/23 23:32 MDM - SOB/Dyspnea MDM Narrative Medical decision making narrative: the patient presented with chronic obstructive pulmonary disease exacerbation. He was given IV Solu-Medrol and aerosol treatments and is being admitted. Chest x-ray shows no infiltrate. Blood cultures were obtained and he was given IV antibiotics. Treatment diagnosis and disposition were discussed with the patient. Differential Diagnosis Differential diagnosis: Likely acute exacerbation of chronic obstructive airways disease, congestive heart failure, community acquired pneumonia and other (Covid) Lab Data Attestation: I reviewed the patient's lab results. Labs: Lab Results 01/30/23 01/30/23 Range/Units 00:03 23:18 WBC 8.9 (4.0-11.0) 10^3/uL RBC 5.05 (4.70-6.10) 10^6/uL Hgb 16.0 (14.0-18.0) g/dL Hct 51.2 (42.0-54.0) % MCV 101.4 H (80.0-94.0) fL MCH 31.7 (25.9-34.0) pg MCHC 31.3 (29.9-35.2) g/dL RDW 14.2 (11.0-15.0) % Plt Count 229 (150-450) 10^3/uL MPV 11.1 (9.5-13.5) fL Neut % (Auto) 62.3 (43.0-75.0) % Lymph % (Auto) 26.5 (20.5-60.0) % [place] % (Auto) 5.7 (1.7-12.0) % Eos % (Auto) 1.9 (0.9-7.0) % Baso % (Auto) 1.2 (0.2-2.0) % Neut # (Auto) 5.6 (1.4-6.5) 10^3/uL Lymph # (Auto) 2.4 (1.2-3.8) 10^3/uL [place] # (Auto) 0.5 (0.3-0.8) 10^3/uL Eos # (Auto) 0.2 (0.0-0.7) 10^3/uL Baso # (Auto) 0.1 (0.0-0.1) 10^3/uL Abs Immat Gran (auto) 0.21 H (0.00-0.03) 10^3/uL Imm/Tot Granulo (auto) 2.4 H (0.0-0.5) % Sodium 145 (136-145) mmol/L Potassium 4.3 (3.5-5.1) mmol/L Chloride 105 (98-107) mmol/L Carbon Dioxide 34.5 H (21.0-32.0) mmol/L Anion Gap 9.8 BUN 16.0 (7.0-18.0) mg/dL Creatinine 0.98 (0.70-1.30) mg/dL Est GFR ( Amer) >60 (>=60) Est GFR (Non-Af Amer) >60 (>=60) BUN/Creatinine Ratio 16.3 Glucose 95 (74-106) mg/dL Calcium 8.9 (8.5-10.1) mg/dL SARS-CoV-2 (PCR) Negative (NEGATIVE) Imaging Data Chest x-ray: Radiologist's impression: Procedure: XR chest 1V EXAMINATION:XR chest 1V INDICATION:SOB COMPARISON:01/05/2023 TECHNIQUE:2 views of the chest are submitted. FINDINGS: The cardiomediastinal silhouette is not enlarged. The pulmonary vascularity is within normal limits. Lungs are hyperinflated consistent with COPD. No acute infiltrates have developed. There is no costophrenic angle blunting. IMPRESSION: No acute cardiopulmonary process in the chest. Electronically authenticated by: BENNY ORONA Date: 01/31/2023 00:19 ECG Data Attestation: I personally reviewed and interpreted this ECG as follows: (EKG on my interpretation shows sinus tachycardia with a rate of 117.) Critical Care Time Critical Care Time Critical Care Time: Yes Total Critical Care Time: 35 Attestation: Due to the high probability of sudden and clinically significant deterioration in the patient's condition he/she required the highest level of my preparedness to intervene urgently I provided critical care time including documentation time, medication orders and management, reevaluation, vital sign assessment, ordering and reviewing of lab tests, ordering and reviewing of x-ray studies, and admission orders. Aggregate critical care time is 35 minutes including only time during which I was engaged in work directly related to his/her care and did not include time spent treating other patients simultaneously. Discharge Plan Discharge Chief Complaint: Shortness of Breath/Dyspnea Clinical Impression: Chronic obstructive pulmonary disease (COPD) Patient Disposition: Admitted as Observation Time of Disposition Decision: 00:53 Condition: Fair Prescriptions / Home Meds: No Action prednisone 20 mg tablet 60 mg PO DAILY 10 Days Qty: 30 0RF budesonide 0.5 mg/2 mL suspension for nebulization 0.5 mg inhalation BID PRN (Reason: shortness of breath) Qty: 0 0RF hydroxyzine HCl 25 mg tablet 25 mg PO Q8H PRN (Reason: anxiety) Qty: 30 0RF albuterol sulfate 2.5 mg /3 mL (0.083 %) solution for nebulization 2.5 mg inhalation Q6H PRN (Reason: shortness of breath or wheezing) atorvastatin 20 mg tablet 20 mg PO BEDTIME Bevespi Aerosphere 9-4.8 mcg HFA aerosol inhaler 2 inh INHALATION Q12H aspirin 81 mg tablet,chewable 81 mg PO DAILY Referrals: Shaikh Hook MD [Primary Care Provider] - 1 week
[2023-01-30 23:29] LABS: Basophils Absolute Auto 0.1 10^3/uL (0.0-0.1); Basophils Percent Auto 1.2 % (0.2-2.0); Eosinophils Absolute Auto 0.2 10^3/uL (0.0-0.7); Eosinophils Percent Auto 1.9 % (0.9-7.0); Hematocrit 51.2 % (42.0-54.0); Immature Granulocytes Abs Auto 0.21 10^3/uL (0.00-0.03); Immature Granulocytes Pct Auto 2.4 % (0.0-0.5); Lymphocytes Absolute Auto 2.4 10^3/uL (1.2-3.8); Lymphocytes Percent Auto 26.5 % (20.5-60.0); Mean Corpuscular HGB Conc 31.3 g/dL (29.9-35.2); Mean Corpuscular Hemoglobin 31.7 pg (25.9-34.0); Mean Corpuscular Volume 101.4 fL (80.0-94.0); Mean Platelet Volume 11.1 fL (9.5-13.5); Monocytes Absolute Auto 0.5 10^3/uL (0.3-0.8); Monocytes Percent Auto 5.7 % (1.7-12.0); Neutrophils Absolute Auto 5.6 10^3/uL (1.4-6.5); Neutrophils Percent Auto 62.3 % (43.0-75.0); Platelet Count 229 10^3/uL (150-450); Red Blood Count 5.05 10^6/uL (4.70-6.10); Red Cell Distribution Width 14.2 % (11.0-15.0); White Blood Count 8.9 10^3/uL (4.0-11.0)
[2023-01-30 23:32] VITALS: PULSE 112; RESP 19; O2SAT 100
[2023-01-30] MEDS: IPRATROPIUM/ALBUTEROL SULFATE 3 ML AMPUL.NEB IH (23:32)
[2023-01-30 23:40] LABS: Anion Gap 9.8; BUN Creatinine Ratio 16.3; Calcium 8.9 mg/dL (8.5-10.1); Carbon Dioxide 34.5 mmol/L (21.0-32.0); Chloride 105 mmol/L (98-107); Estimated GFR (African America >60 (>=60); Estimated GFR (Non-African Ame >60 (>=60); Glucose 95 mg/dL (74-106); Potassium 4.3 mmol/L (3.5-5.1); Sodium 145 mmol/L (136-145)
[2023-01-30] MEDS: METHYLPREDNISOLONE SOD SUCC PF 125 MG/2 ML VIAL IVP (23:40)
[2023-01-31] VITALS (11 sets, daily range): BP systolic 115–130; BP diastolic 60–79; PULSE 78–112; RESP 16–20; TEMP 36.5–36.6; O2SAT 96–98; BMI 23.3
[2023-01-31] MEDS: LORAZEPAM 2 MG/ML 1 ML VIAL 1 MG IV (00:27)
[2023-01-31 00:34] LABS: SARS-CoV-2 Ag NEGATIVE (NEGATIVE)
--- NOTE | 2023-01-31 00:42 | PC.NURSE ---
upon patients arrival he stated he felt increasingly short of breath starting in the morning. states he normally wears 3L home O2, but states today he felt increasingly short of breath and did not have any improvement at home with use of inhaler or turning oxygen up. patient denies any chest pain at this time.
--- NOTE | 2023-01-31 03:17 | P.PN_ITS ---
Progress Note: Subjective Subjective Interval history: Chief complaint: shortness of breath HPI: 67 y/o male with history of severe COPD on home 02 who presents with shortness of breath and wheezing. Patient reports for the past few days he has been having worsening shortness of breath and wheezing from baseline, he has been having productive cough of thick white sputum. He has been using his nebulizer more frequent with minimal improvement. Continues to smoke cigarettes about 3 daily and marijuana daily. Denies any alcohol illicit drug use. Denies any fevers chills or sweats, denies lower extremity edema or PND but reports occasionally has orthopnea and sensation of chest discomfort as of his chest has electricity. denies any palpitations, near-syncope, syncope, has abdominal discomfort when he eats food denies reflux, denies change in bowel urinary habits, denies weight loss. Upon arrival to the ER patient had CXR with prelim read without any infiltrates. He was given Solu-Medrol and DuoNeb treatment with improvement however not yet back to his baseline. Hospital Medicine consulted for admission. ROS: negative except for HPI PMHx: COPD PSHx: none per patient SHx: Smokes cigarettes and marijuana daily FHx: non-contirbutory to todays visit Allergies: NKDA Home medications: reconciled in chart physical exam: General: Lying bed, no acute distress, alert and oriented x3 HEENT: Normocephalic, atraumatic, wearing eyeglasses, trachea midline lungs: Diffuse wheezing, slight increase in respiratory effort CVS: regular rate and rhythm, no edema GI: Soft, nontender, no visible masses neuro: Moving all extremities, no focal deficits Exam Constitutional Vital Signs, click to edit/add: Last Vital Signs Temp 97.9 F 01/31/23 02:41 Pulse 93 H 01/31/23 02:41 Resp 18 01/31/23 02:41 BP 115/79 01/31/23 02:41 Pulse Ox 98 01/31/23 02:41 O2 Del Method Nasal Cannula 01/31/23 02:41 O2 Flow Rate 3 01/31/23 02:41 Progress Note: Objective Labs Labs: Short CBC 01/30/23 Range/Units 23:18 WBC 8.9 (4.0-11.0) 10^3/uL Hgb 16.0 (14.0-18.0) g/dL Hct 51.2 (42.0-54.0) % Plt Count 229 (150-450) 10^3/uL BMP 01/30/23 23:18 Sodium 145 Potassium 4.3 Chloride 105 Carbon Dioxide 34.5 H BUN 16.0 Creatinine 0.98 Glucose 95 Calcium 8.9 Progress Note: A&P Assessment and Plan (1) Chronic obstructive pulmonary disease (COPD): (2) Hiwtp-4-fwotgutnbhx deficiency: (3) Current smoker: (4) Pulmonary cachexia due to chronic obstructive pulmonary disease: Plan COPD with acute exacerbation Chronic hypoxic respiratory failure on home 3L 02 tobacco and marijuana smoker - Admit to med surg bed - COPD pathway with scheduled steroids, duonebs, antibiotics, 02, Bipap prn - smoking cessation education - consider pulmonary rehab DVT ppx-Lovenox Full Code Medication reconciliation form completed communications: discussed with ER physician, bedside nurse, patient updated of plan of care, all questions answered to their satisfaction disposition: home when medically stable As the provider of this telehealth evaluation, requested by the patient's evaluating physician, i attest that i introduced myself to the patient, provided my credentials, and determined that telemedicine, via a realtime 2 way interactive audio and video platform is an appropriate and effective means of providing this service. I reviewed the patient chart and had a discussion with the member of the patient treatment team. the patient and I mutually agreed with continuation of this evaluation via telemedicine. the patient consented for the telemedicine evaluation. The nurse was present during the entire time of the encounter and was able to move the stethoscope in appropriate directions, encounter lasted about 30 minutes evaluated at 0320 Telemedicine Attestation Telemedicine Attestation I conducted this encounter from [[place], [place]] via secure live, [id number] video conference with the patient, located at [facility] with [Nursing staff]. Prior to the interview, the risks and benefits of telemedicine were discussed with the patient and verbal consent was obtained.
[2023-01-31 04:49] LABS: Magnesium 2.3 mg/dL (1.8-2.4)
[2023-01-31] MEDS: IPRATROPIUM/ALBUTEROL SULFATE 3 ML AMPUL.NEB IH ×2 (05:23→11:31)
[2023-01-31] MEDS: PREDNISONE 20 MG TABLET 60 MG PO (09:35)
[2023-01-31] MEDS: ENOXAPARIN SODIUM 30 MG/0.3 ML SYRINGE SUBQ (09:37)
[2023-01-31] MEDS: OMEPRAZOLE 20 MG CAPSULE.DR PO (09:37)
[2023-01-31] MEDS: ASPIRIN 81 MG TAB.CHEW PO (09:37)
--- NOTE | 2023-01-31 12:37 | PM.HP ---
H&P: HPI History of Present Illness Chief complaint: Shortness of breath Narrative: HPI and Hospital Course 67 y o male with poorly controlled COPD presented to ED last night with inability to catch his breathing, worsening SOB but stable hypoxia. He was admitted for COPD exacerbation and treated with systemic steroids and duoebs. No acute finding on w/u in ED and this morning, patient seems close to his baseline and feels ready to go home. 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 - Vipdp-9-kngxajthktq deficiency (ICD-10) Anxiety ?F41.9 - Anxiety disorder, unspecified (ICD-10) Asthma exacerbation with COPD (chronic obstructive pulmonary disease) ?J44.1 - Chronic obstructive pulmonary disease with (acute) exacerbation (ICD-10) ?J45.901 - Unspecified asthma with (acute) exacerbation (ICD-10) Chronic obstructive pulmonary disease (COPD) ?J44.9 - Chronic obstructive pulmonary disease, unspecified (ICD-10) Chronic respiratory failure with hypoxia ?J96.11 - Chronic respiratory failure with hypoxia (ICD-10) COPD (chronic obstructive pulmonary disease) ?J44.9 - Chronic obstructive pulmonary disease, unspecified (ICD-10) COVID-19 ?U07.1 - COVID-19 (ICD-10) Current smoker ?F17.200 - Nicotine dependence, unspecified, uncomplicated (ICD-10) Leukocytosis ?D72.829 - Elevated white blood cell count, unspecified (ICD-10) Pulmonary cachexia due to chronic obstructive pulmonary disease ?J44.9 - Chronic obstructive pulmonary disease, unspecified (ICD-10) ?R64 - Cachexia (ICD-10) Family History Father Family history of CHF (congestive heart failure) Family history of hypertension Mother Family history of CHF (congestive heart failure) Family history of COPD (chronic obstructive pulmonary disease) Family history of hypertension Social History Within the past year, how often did you have a drink containing alcohol: monthly or less Within the past year, how many standard drinks containing alcohol did you have on a typical day: 1 or 2 Within the past year, how often did you have six or more drinks on one occasion: never Total score: 0 Score interpretation: A score less than 4 is consistent with normal alcohol consumption. Smoking status: Light tobacco smoker Non-prescribed substance use: cannabis (any form) Previous occupational history: retired Highest level of school completed/degree received: some college, no degree Are you now , , , , never or living with a partner: In a typical week, how many times do you talk on the telephone with family, friends, or neighbors: twice per week How often do you get together with friends or relatives: twice per week How often do you attend zoroastrian or uatsdin services: never Do you belong to any clubs or organizations such as zoroastrian groups unions, [employer] or athletic groups, or school groups: no Total score: 1 Score interpretation: A score of less than or equal to 1 indicates the most socially isolated. Little interest or pleasure in doing things: not at all Feeling down, depressed, or hopeless: nearly every day Feel stressed/tense/nervous/anxious/difficulty sleeping: rather much Gender Identity: male Meds Home Medications and Allergies Home Medications Medication Instructions Recorded Confirmed Type albuterol sulfate 2.5 mg/3 mL 2.5 mg inhalation Q6H PRN 12/23/22 01/31/23 History (0.083 %) solution for nebulization shortness of breath or wheezing aspirin 81 mg chewable tablet 81 mg PO DAILY 12/23/22 01/31/23 History glycopyrrolate 9 mcg-formoterol 2 inh inhalation Q12H 12/23/22 01/31/23 History 4.8 mcg HFA aerosol inhaler (Bevespi Aerosphere) budesonide 0.5 mg/2 mL suspension 0.5 mg (2 mL) inhalation BID PRN 01/09/23 01/31/23 Rx for nebulization shortness of breath #0 mL hydroxyzine HCl 25 mg tablet 25 mg PO Q8H PRN anxiety #30 tabs 01/09/23 01/31/23 Rx prednisone 20 mg tablet 60 mg PO DAILY 10 days #30 tabs 01/09/23 01/31/23 Rx azithromycin 250 mg tablet 250 mg PO .COMPLEX 01/31/23 01/31/23 History Allergies Allergy/AdvReac Type Severity Reaction Status Date / Time No Known Drug Allergies Allergy Verified 12/14/22 20:04 Exam Constitutional Vital Signs, click to edit/add: Last Vital Signs Temp 97.7 F 01/31/23 05:51 Pulse 110 H 01/31/23 11:54 Resp 18 01/31/23 05:51 BP 117/76 01/31/23 05:51 Pulse Ox 98 01/31/23 11:32 O2 Del Method Nasal Cannula 01/31/23 11:32 O2 Flow Rate 3 01/31/23 11:32 Documenting provider has reviewed patient's vital signs: yes Common normals: no apparent distress and oriented x3 General appearance: cooperative HENMT Common normals: normocephalic and head/scalp atraumatic Head and scalp: normocephalic and atraumatic Eye Common normals: conjunctivae normal and no scleral icterus Conjunctiva: conjunctiva(e) normal Respiratory Common normals: normal respiratory effort Effort & inspection: able to speak in complete sentences and prolonged expiratory phase Auscultation: rhonchi Cardio Common normals: regular rate, S1 normal heart sound and S2 normal heart sound Rate: regular rate Heart sounds: S1 normal and S2 normal GI Common normals: Normal to inspection, nondistended, normoactive bowel sounds present, soft to palpation, non-tender and no hepatosplenomegaly Palpation: soft and no hepatosplenomegaly Extremity Common normals: no clubbing, cyanosis or edema Neuro Common normals: oriented x3, moves all extremities and no focal motor deficits Psych Common normals: mental status grossly normal, denies hallucinations, denies homicidal ideation and denies suicidal ideation Results Labs Labs: Short CBC 01/30/23 Range/Units 23:18 WBC 8.9 (4.0-11.0) 10^3/uL Hgb 16.0 (14.0-18.0) g/dL Hct 51.2 (42.0-54.0) % Plt Count 229 (150-450) 10^3/uL BMP 01/30/23 23:18 Sodium 145 Potassium 4.3 Chloride 105 Carbon Dioxide 34.5 H BUN 16.0 Creatinine 0.98 Glucose 95 Calcium 8.9 Assessment and Plan Assessment and Plan (1) COPD with acute exacerbation: (2) Chronic respiratory failure with hypoxia: (3) Pulmonary cachexia due to chronic obstructive pulmonary disease: (4) Current smoker: (5) Anxiety: Plan Patient admitted for worsening SOB, increased work of breathing, wheezing sec to COPD exacerbation. Treated with steroids, duonebs and feeling much better today. He has chronic exertional dyspnea at baseline and is on baseline O2 requirement. Patient again educated and counseled on smoking cessation. This is atleast his third hospitalization within past one month for COPD exacerbation. Will d/c home on prednisone taper. F/u roro with me in office on February 02 and then roro with Pulm on February 11. Patient educated on worrisome signs and symptoms of COPD exacerbation
[2023-01-31 15:30] LABS: SARS-CoV-2 NAA NOT DETECTED (NOT DETECTE)
--- NOTE | 2023-02-01 15:36 | CM.DCFOLLOWU ---
First discharge call attempted and unable to get the call to go through after multiple attempts. Phone line continued to ring a fast busy signal. Will attempt again another date.
--- NOTE | 2023-02-02 11:24 | CM.DCFOLLOWU ---
Person spoke with: patient How are you feeling? a little than when I was there How is your pain? none Did you understand your discharge instructions? yes Do you have any questions about your discharge instructions? no Were you given any prescriptions at discharge? no Were you able to get your prescriptions filled? n/a Do you understand how to take your medications as ordered? yes Do you have any questions about your follow up appointment and do you plan to keep your follow up appointment? My appointment is today at 1:[address] Hook and I plan on going. Is there anything else that you would like to discuss? No Questions/Comments/Concerns/Other: Pt. stated his is currently wearing 3 liters of oxygen and checked his oxygen level while on phone and it was 96-97% with HR of 102. Pt. denies any needs or questions at this time.
== END 2023-01-31 14:04 | disposition home or self-care (01) ==
LOC: ER 01-31 00:54 → MS 01-31 02:21
PROVIDERS: Admitting Provider Internal Medicine; Emergency Provider Emergency Medicine; PCP Internal Medicine; Visit Provider Internal Medicine
DX: J44.1 Chronic obstructive pulmonary disease with (acute) exacerbation (principal); J96.11 Chronic respiratory failure with hypoxia; E88.01 Alpha-1-antitrypsin deficiency; F41.9 Anxiety disorder, unspecified; R64 Cachexia; Z68.23 Body mass index [BMI] 23.0-23.9, adult; Z99.81 Dependence on supplemental oxygen; F17.210 Nicotine dependence, cigarettes, uncomplicated; F12.90 Cannabis use, unspecified, uncomplicated; Z86.16 Personal history of COVID-19; Z20.822 Contact with and (suspected) exposure to COVID-19; Z79.899 Other long term (current) drug therapy; Z79.82 Long term (current) use of aspirin
CPT/HCPCS: 36415; 71045; 80048; 83735; 83880; 85025; 87040; 87635; 87811; 93005; 94640; 94761; 96372; 96374; 96375; 99285; 99406; G0378; J2930; Q3014; U0003

== ENCOUNTER 2023-02-05 09:16 | Observation (INO) | payer MEDICARE, MEDICAID, SELFPAY ==
[2023-02-05] VITALS (18 sets, daily range): BP systolic 116–145; BP diastolic 79–89; PULSE 90–109; RESP 2–32; TEMP 36.5–36.8; O2SAT 94–100; BMI 23.7; BMI 22.9
--- NOTE | 2023-02-05 09:31 | XR_ITS ---
The [address] [address] Patient Name: JAMSHID VARELA MRN: [id number] date: 1955 Sex: M Assigned Patient Location: ER Current Patient Location: ER Accession/Order Number: [id number] Exam Date: 02/05/2023 09:35 Report Date: 02/05/2023 09:59 At the request of: CEZAR DARLING Procedure: XR chest 1V EXAM: XR chest 1V HISTORY: . shortness of breath . COMPARISON: 01/30/2023 TECHNIQUE: Single view of the chest FINDINGS: Heart and vascularity are unremarkable. There is hyperexpansion of the lungs. Lungs are free of focal infiltrates. Grossly no bony abnormality is appreciated. XR/XR chest 1V IMPRESSION: 1. Hyperexpansion of lungs. 2. No acute heart or lung disease identified. Electronically authenticated by: JEFRY GONZÁLES Date: 02/05/2023 09:59
--- NOTE | 2023-02-05 09:31 | ECG_ITS ---
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
[2023-02-05] MEDS: METHYLPREDNISOLONE SOD SUCC PF 125 MG/2 ML VIAL IVP (09:50)
[2023-02-05 09:59] LABS: Basophils Absolute Auto 0.1 10^3/uL (0.0-0.1); Basophils Percent Auto 0.6 % (0.2-2.0); Eosinophils Absolute Auto 0.1 10^3/uL (0.0-0.7); Eosinophils Percent Auto 0.9 % (0.9-7.0); Hematocrit 47.1 % (42.0-54.0); Hemoglobin 14.5 g/dL (14.0-18.0); Immature Granulocytes Abs Auto 0.29 10^3/uL (0.00-0.03); Immature Granulocytes Pct Auto 3.3 % (0.0-0.5); Lymphocytes Absolute Auto 1.9 10^3/uL (1.2-3.8); Lymphocytes Percent Auto 21.1 % (20.5-60.0); Mean Corpuscular HGB Conc 30.8 g/dL (29.9-35.2); Mean Corpuscular Hemoglobin 31.5 pg (25.9-34.0); Mean Corpuscular Volume 102.2 fL (80.0-94.0); Mean Platelet Volume 10.8 fL (9.5-13.5); Monocytes Absolute Auto 0.6 10^3/uL (0.3-0.8); Monocytes Percent Auto 6.4 % (1.7-12.0); Neutrophils Percent Auto 67.7 % (43.0-75.0); Platelet Count 212 10^3/uL (150-450); Red Blood Count 4.61 10^6/uL (4.70-6.10); Red Cell Distribution Width 13.9 % (11.0-15.0); White Blood Count 8.9 10^3/uL (4.0-11.0)
--- NOTE | 2023-02-05 10:05 | ED_ITS ---
HPI - SOB/Dyspnea General Chief Complaint: Shortness of Breath/Dyspnea Stated Complaint: SHORTNESS OF BREATH Time Seen by Provider: 02/05/23 09:23 Source: patient Mode of arrival: ambulance Limitations: no limitations History of Present Illness HPI Narrative: increasing shortness of breath for about a week that worsened two days ago. The patient denied fever but admitted to chills. He is concerned that he has pn eumonia. Hx COPD. Denies CAD. Wears O2 at home @3LPM [facility]. His PCP is Monster and he was supposed to have an office appointment 3 days ago but I was too sick to get there. He uses a home nebulizer machine - said it is not helping. Related Data Home Medications Medication Instructions Recorded Confirmed albuterol sulfate 2.5 mg/3 mL 2.5 mg inhalation Q6H PRN 12/23/22 01/31/23 (0.083 %) solution for nebulization shortness of breath or wheezing aspirin 81 mg chewable tablet 81 mg PO DAILY 12/23/22 01/31/23 glycopyrrolate 9 mcg-formoterol 2 inh inhalation Q12H 12/23/22 01/31/23 4.8 mcg HFA aerosol inhaler (Bevespi Aerosphere) Previous Rx's Medication Instructions Recorded budesonide 0.5 mg/2 mL suspension 0.5 mg (2 mL) inhalation BID PRN 01/09/23 for nebulization shortness of breath #0 mL hydroxyzine HCl 25 mg tablet 25 mg PO Q8H PRN anxiety #30 tabs 01/09/23 prednisone 20 mg tablet 60 mg PO DAILY 10 days #30 tabs 01/09/23 Allergies Allergy/AdvReac Type Severity Reaction Status Date / Time No Known Drug Allergies Allergy Verified 12/14/22 20:04 [facility] Medical History (Updated 02/05/23 @ 10:43 by Cezar Darling) 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 - Qflqa-6-zsznllvnspc deficiency (ICD-10) Anxiety ?F41.9 - Anxiety disorder, unspecified (ICD-10) Asthma exacerbation with COPD (chronic obstructive pulmonary disease) ?J44.1 - Chronic obstructive pulmonary disease with (acute) exacerbation (ICD-10) ?J45.901 - Unspecified asthma with (acute) exacerbation (ICD-10) Chronic obstructive pulmonary disease (COPD) ?J44.9 - Chronic obstructive pulmonary disease, unspecified (ICD-10) Chronic respiratory failure with hypoxia ?J96.11 - Chronic respiratory failure with hypoxia (ICD-10) COPD (chronic obstructive pulmonary disease) ?J44.9 - Chronic obstructive pulmonary disease, unspecified (ICD-10) COPD with acute exacerbation ?J44.1 - Chronic obstructive pulmonary disease with (acute) exacerbation (ICD-10) COVID-19 ?U07.1 - COVID-19 (ICD-10) Current smoker ?F17.200 - Nicotine dependence, unspecified, uncomplicated (ICD-10) Leukocytosis ?D72.829 - Elevated white blood cell count, unspecified (ICD-10) Pulmonary cachexia due to chronic obstructive pulmonary disease ?J44.9 - Chronic obstructive pulmonary disease, unspecified (ICD-10) ?R64 - Cachexia (ICD-10) Family History Father Family history of CHF (congestive heart failure) Family history of hypertension Mother Family history of CHF (congestive heart failure) Family history of COPD (chronic obstructive pulmonary disease) Family history of hypertension Social History Within the past year, how often did you have a drink containing alcohol: monthly or less Within the past year, how many standard drinks containing alcohol did you have on a typical day: 1 or 2 Within the past year, how often did you have six or more drinks on one occasion: never Total score: 0 Score interpretation: A score less than 4 is consistent with normal alcohol consumption. Smoking status: Current every day smoker Non-prescribed substance use: cannabis (any form) Previous occupational history: retired Highest level of school completed/degree received: some college, no degree Are you now , , , , never or living with a partner: In a typical week, how many times do you talk on the telephone with family, friends, or neighbors: twice per week How often do you get together with friends or relatives: twice per week How often do you attend cheondoism or hindu services: never Do you belong to any clubs or organizations such as cheondoism groups unions, [employer] or athletic groups, or school groups: no Total score: 1 Score interpretation: A score of less than or equal to 1 indicates the most socially isolated. Little interest or pleasure in doing things: not at all Feeling down, depressed, or hopeless: nearly every day Feel stressed/tense/nervous/anxious/difficulty sleeping: rather much Gender Identity: male Exam Narrative Exam Narrative: Nurses notes and vital signs reviewed and patient is not hypoxic. afebrile General: Tachypneic but not in respiratory distress. Skin: Warm, dry, no pallor noted. No rash. Head: Normocephalic, atraumatic. Eye: Pupils are equal, round and EOMI. No scleral icterus. Ears, Nose, Mouth, and Throat: Oral mucosa is moist Cardiovascular: Regular Rate and Rhythm without murmur, gallop or rub. Respiratory: No accessory muscle use or respiratory distress. Lungs with decreased air exchange, diffuse expiratory wheezing and scattered rhonchi Chest Wall: no tenderness Musculoskeletal: normal ROM, no calf or popliteal tenderness, no lower extremity edema/swelling GI: Abdomen is soft, non-distended. Normal bowel sounds. No tenderness to palpation. No rebound, guarding, or rigidity noted. Neurological: A&O x4. No cranial nerve dysfunction observed. No truncal ataxia. Moves all extremities. Sensation intact. Psychiatric: Cooperative and interactive. Normal mood and affect. Constitutional Vital Signs, click to edit/add: Last Vital Signs Temp 97.7 F 02/05/23 09:18 Pulse 109 H 02/05/23 09:18 Resp 22 02/05/23 09:18 BP 116/89 02/05/23 09:18 Pulse Ox 99 02/05/23 09:27 O2 Del Method Nasal Cannula 02/05/23 09:27 O2 Flow Rate 3 02/05/23 09:27 Course Vital Signs Vital signs: Vital Signs Temperature 97.7 F 02/05/23 09:18 Pulse Rate 109 H 02/05/23 09:18 Respiratory Rate 22 02/05/23 09:18 Blood Pressure 116/89 02/05/23 09:18 Pulse Oximetry 96 02/05/23 09:18 Oxygen Delivery Method Room Air 02/05/23 09:18 Oxygen Delivery Flow Rate 3 02/05/23 09:18 Temperature 97.7 F 02/05/23 09:18 Pulse Rate 109 H 02/05/23 09:18 Respiratory Rate 22 02/05/23 09:18 Blood Pressure 116/89 02/05/23 09:18 Pulse Oximetry 99 02/05/23 09:27 Oxygen Delivery Method Nasal Cannula 02/05/23 09:27 Oxygen Delivery Flow Rate 3 02/05/23 09:27 MDM - SOB/Dyspnea MDM Narrative Medical decision making narrative: Patient was placed on mechanical laboratory technician and EKG obtained. Blood drawn and sent for evaluation. the patient wears 3 L/m nasal cannula oxygen at home and so he is maintained on that while in the emergency department. He had received nebulized albuterol and Atrovent in route by EMS. He was given IV Solu-Medrol in the emergency department. CXR obtained - findings consistent with COPD but no pneumonia identified. Norm al WBC. CO2 elevated but the remainder of the BMP unremarkable. Covid positive. Patient unable to tolerate out-patient treatment and will benefit from admission. Call placed to Dr Hook - the patient's PCP and human performance consultant physician for admissions - to discuss admission and he agreed to admit the patient, obs, medsurg. Lab Data Attestation: I reviewed the patient's lab results. Labs: Lab Results 02/05/23 Range/Units 09:46 WBC 8.9 (4.0-11.0) 10^3/uL RBC 4.61 L (4.70-6.10) 10^6/uL Hgb 14.5 (14.0-18.0) g/dL Hct 47.1 (42.0-54.0) % MCV 102.2 H (80.0-94.0) fL MCH 31.5 (25.9-34.0) pg MCHC 30.8 (29.9-35.2) g/dL RDW 13.9 (11.0-15.0) % Plt Count 212 (150-450) 10^3/uL MPV 10.8 (9.5-13.5) fL Neut % (Auto) 67.7 (43.0-75.0) % Lymph % (Auto) 21.1 (20.5-60.0) % [place] % (Auto) 6.4 (1.7-12.0) % Eos % (Auto) 0.9 (0.9-7.0) % Baso % (Auto) 0.6 (0.2-2.0) % Neut # (Auto) 6.0 (1.4-6.5) 10^3/uL Lymph # (Auto) 1.9 (1.2-3.8) 10^3/uL [place] # (Auto) 0.6 (0.3-0.8) 10^3/uL Eos # (Auto) 0.1 (0.0-0.7) 10^3/uL Baso # (Auto) 0.1 (0.0-0.1) 10^3/uL Abs Immat Gran (auto) 0.29 H (0.00-0.03) 10^3/uL Imm/Tot Granulo (auto) 3.3 H (0.0-0.5) % Sodium 140 (136-145) mmol/L Potassium 4.2 (3.5-5.1) mmol/L Chloride 106 (98-107) mmol/L Carbon Dioxide 37.3 H (21.0-32.0) mmol/L Anion Gap 0.9 BUN 18.0 (7.0-18.0) mg/dL Creatinine 0.86 (0.70-1.30) mg/dL Est GFR ( Amer) >60 (>=60) Est GFR (Non-Af Amer) >60 (>=60) BUN/Creatinine Ratio 20.9 Glucose 120 H (74-106) mg/dL Lactate 1.5 (0.4-2.0) mmol/L Calcium 8.4 L (8.5-10.1) mg/dL Troponin I High Sens 20.4 (4.0-76.1) pg/mL NT-Pro-B Natriuret Pep 182.0 (<=900.0) pg/mL Imaging Data Chest x-ray: Radiologist's impression: Patient Name: JAMSHID VARELA MRN: [id number] date: 1955 Sex: M Assigned Patient Location: ER Current Patient Location: ER Accession/Order Number: [id number] Exam Date: 02/05/2023 09:35 Report Date: 02/05/2023 09:59 At the request of: CEZAR DARLING Procedure: XR chest 1V EXAM: XR chest 1V HISTORY: . shortness of breath . COMPARISON: 01/30/2023 TECHNIQUE: Single view of the chest FINDINGS: Heart and vascularity are unremarkable. There is hyperexpansion of the lungs. Lungs are free of focal infiltrates. Grossly no bony abnormality is appreciated. IMPRESSION: 1. Hyperexpansion of lungs. 2. No acute heart or lung disease identified. Electronically authenticated by: JEFRY GONZÁLES Date: 02/05/2023 09:59 ECG Data Interpretation: EKG interpretation: Emergency Department physician interpretation. Sinus tachycardia at 104bpm. Rightward axis, normal intervals and no ST segment elevation or depression. Discharge Plan Discharge Chief Complaint: Shortness of Breath/Dyspnea Clinical Impression: Acute infective exacerbation of chronic obstructive airway disease, COVID Patient Disposition: Admitted as Observation Time of Disposition Decision: 10:42 Prescriptions / Home Meds: No Action prednisone 20 mg tablet 60 mg PO DAILY 10 Days Qty: 30 0RF budesonide 0.5 mg/2 mL suspension for nebulization 0.5 mg inhalation BID PRN (Reason: shortness of breath) Qty: 0 0RF hydroxyzine HCl 25 mg tablet 25 mg PO Q8H PRN (Reason: anxiety) Qty: 30 0RF albuterol sulfate 2.5 mg /3 mL (0.083 %) solution for nebulization 2.5 mg inhalation Q6H PRN (Reason: shortness of breath or wheezing) Bevespi Aerosphere 9-4.8 mcg HFA aerosol inhaler 2 inh INHALATION Q12H aspirin 81 mg tablet,chewable 81 mg PO DAILY Additional Instructions: dr hook - medsurg - OBS Referrals: Shaikh Hook MD [Primary Care Provider] - 1 week
[2023-02-05 10:17] LABS: Lactate/Lactic Acid 1.5 mmol/L (0.4-2.0)
[2023-02-05 10:22] LABS: Anion Gap 0.9; BUN Creatinine Ratio 20.9; Calcium 8.4 mg/dL (8.5-10.1); Carbon Dioxide 37.3 mmol/L (21.0-32.0); Chloride 106 mmol/L (98-107); Estimated GFR (African America >60 (>=60); Estimated GFR (Non-African Ame >60 (>=60); Glucose 120 mg/dL (74-106); Potassium 4.2 mmol/L (3.5-5.1); Sodium 140 mmol/L (136-145); Troponin I High Sensitivity 20.4 pg/mL (4.0-76.1)
[2023-02-05 10:39] LABS: SARS-CoV-2 Ag POSITIVE (NEGATIVE)
--- NOTE | 2023-02-05 11:13 | CT_ITS ---
The [address] [address] Patient Name: JAMSHID VARELA MRN: [id number] date: 1955 Sex: M Assigned Patient Location: MS Current Patient Location: MS Accession/Order Number: [id number] Exam Date: 02/05/2023 11:40 Report Date: 02/05/2023 11:56 At the request of: SHAIKH KAYY Procedure: CT head/brain wo con EXAM: CT head/brain wo con; [id number] REASON FOR EXAM: Headache COMPARISON: None. TECHNIQUE: Axial CT images of the head obtained without contrast. Multiplanar reformats generated at the scanner. Dose reduction technique used: Automated exposure control and/or adjustment of the mA and/or kV according to patient size and/or use of iterative reconstruction technique. FINDINGS: Parenchyma: -Mild generalized cerebral volume loss. -No midline shift or mass effect. Basilar cisterns are patent. -No acute intracranial hemorrhage. -No loss of cortical monteiro-white differentiation to indicate acute cortical infarct. -Mild multifocal and bilateral periventricular white matter predominant hypoattenuation, nonspecific though commonly seen in the setting of chronic microvascular ischemic disease. Extra-axial spaces: No extra-axial fluid collection or hemorrhage. Ventricles: Normal in size and symmetric. Paranasal sinuses: Small amount of dependent fluid in the left maxillary sinus. No significant sinus mucosal thickening. Mastoid air cells: Visualized mastoids are clear. Orbits: No acute abnormality. Osseous: No acute findings. Soft tissues: Moderate amount of presumed cerumen in the left external auditory canal. CT/CT head/brain wo con IMPRESSION: No acute intracranial abnormality demonstrated. Electronically authenticated by: FINA FINN Date: 02/05/2023 11:56
--- NOTE | 2023-02-05 11:14 | P.HP_ITS ---
H&P: HPI History of Present Illness Chief complaint: Shortness of breath Narrative: 67 y male with hx of end stage COPD, chronic resp failure with hypoxia, current smoker - presented with worsening SOB, fatigue, malaise, severe DAN and sinus pressure. He is unsure of whether he had fever or not. He reports productive cough with SOB. He tried to manage his symptoms at home with nebs treatment but continued to feel worse and came to ED earlier today. 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 Patient was treated in ED with systemic steroids and inhaled bronchodilators and feels slightly better than when he arrived. 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 (ICD-10) Anxiety ?F41.9 - Anxiety disorder, unspecified (ICD-10) Asthma exacerbation with COPD (chronic obstructive pulmonary disease) ?J44.1 - Chronic obstructive pulmonary disease with (acute) exacerbation (ICD-10) ?J45.901 - Unspecified asthma with (acute) exacerbation (ICD-10) Chronic obstructive pulmonary disease (COPD) ?J44.9 - Chronic obstructive pulmonary disease, unspecified (ICD-10) Chronic respiratory failure with hypoxia ?J96.11 - Chronic respiratory failure with hypoxia (ICD-10) COPD (chronic obstructive pulmonary disease) ?J44.9 - Chronic obstructive pulmonary disease, unspecified (ICD-10) COPD with acute exacerbation ?J44.1 - Chronic obstructive pulmonary disease with (acute) exacerbation (ICD-10) COVID-19 ?U07.1 - COVID-19 (ICD-10) Current smoker ?F17.200 - Nicotine dependence, unspecified, uncomplicated (ICD-10) Leukocytosis ?D72.829 - Elevated white blood cell count, unspecified (ICD-10) Pulmonary cachexia due to chronic obstructive pulmonary disease ?J44.9 - Chronic obstructive pulmonary disease, unspecified (ICD-10) ?R64 - Cachexia (ICD-10) Family History Father Family history of CHF (congestive heart failure) Family history of hypertension Mother Family history of CHF (congestive heart failure) Family history of COPD (chronic obstructive pulmonary disease) Family history of hypertension Social History Within the past year, how often did you have a drink containing alcohol: monthly or less Within the past year, how many standard drinks containing alcohol did you have on a typical day: 1 or 2 Within the past year, how often did you have six or more drinks on one occasion: never Total score: 0 Score interpretation: A score less than 4 is consistent with normal alcohol co nsumption. Smoking status: Current every day smoker Non-prescribed substance use: cannabis (any form) Previous occupational history: retired Highest level of school completed/degree received: some college, no degree Are you now , , , , never or living with a partner: In a typical week, how many times do you talk on the telephone with family, friends, or neighbors: twice per week How often do you get together with friends or relatives: twice per week How often do you attend episcopalian or hindu services: never Do you belong to any clubs or organizations such as episcopalian groups unions, [employer] or athletic groups, or school groups: no Total score: 1 Score interpretation: A score of less than or equal to 1 indicates the most socially isolated. Little interest or pleasure in doing things: not at all Feeling down, depressed, or hopeless: nearly every day Feel stressed/tense/nervous/anxious/difficulty sleeping: rather much Gender Identity: male Meds Home Medications and Allergies Home Medications Medication Instructions Recorded Confirmed Type albuterol sulfate 2.5 mg/3 mL 2.5 mg inhalation Q6H PRN 12/23/22 02/05/23 History (0.083 %) solution for nebulization shortness of breath or wheezing aspirin 81 mg chewable tablet 81 mg PO DAILY 12/23/22 02/05/23 History glycopyrrolate 9 mcg-formoterol 2 inh inhalation Q12H 12/23/22 02/05/23 History 4.8 mcg HFA aerosol inhaler (Bevespi [employer]) budesonide 0.5 mg/2 mL suspension 0.5 mg (2 mL) inhalation BID PRN 01/09/23 02/05/23 Rx for nebulization shortness of breath #0 mL hydroxyzine HCl 25 mg tablet 25 mg PO Q8H PRN anxiety #30 tabs 01/09/23 02/05/23 Rx prednisone 20 mg tablet 60 mg PO DAILY 10 days #30 tabs 01/09/23 02/05/23 Rx Allergies Allergy/AdvReac Type Severity Reaction Status Date / Time No Known Drug Allergies Allergy Verified 12/14/22 20:04 Exam Constitutional Vital Signs, click to edit/add: Last Vital Signs Temp 97.7 F 02/05/23 09:18 Pulse 98 H 02/05/23 10:40 Resp 19 02/05/23 10:40 BP 116/89 02/05/23 09:20 Pulse Ox 98 02/05/23 10:40 O2 Del Method Nasal Cannula 02/05/23 09:27 O2 Flow Rate 3 02/05/23 09:27 Documenting provider has reviewed patient's vital signs: yes Common normals: no apparent distress and oriented x3 General appearance: cooperative HENMT Common normals: normocephalic and head/scalp atraumatic Head and scalp: normocephalic and atraumatic Eye Common normals: conjunctivae normal and no scleral icterus Conjunctiva: conjunctiva(e) normal Respiratory Common normals: no use of accessory muscles Effort & inspection: able to speak in complete sentences and prolonged expiratory phase Auscultation: wheezes expiratory wheezes, inspiratory wheezes and throughout Cardio Common normals: regular rate, S1 normal heart sound and S2 normal heart sound Rate: regular rate Heart sounds: S1 normal and S2 normal GI Common normals: Normal to inspection, nondistended, normoactive bowel sounds present, soft to palpation, non-tender and no hepatosplenomegaly Palpation: soft and no hepatosplenomegaly Extremity Common normals: no clubbing, cyanosis or edema Neuro Common normals: oriented x3, moves all extremities and no focal motor deficits Psych Common normals: mental status grossly normal, denies hallucinations, denies homicidal ideation and denies suicidal ideation Results Labs Labs: Short CBC 02/05/23 Range/Units 09:46 WBC 8.9 (4.0-11.0) 10^3/uL Hgb 14.5 (14.0-18.0) g/dL Hct 47.1 (42.0-54.0) % Plt Count 212 (150-450) 10^3/uL BMP 02/05/23 09:46 Sodium 140 Potassium 4.2 Chloride 106 Carbon Dioxide 37.3 H BUN 18.0 Creatinine 0.86 Glucose 120 H Calcium 8.4 L Assessment and Plan Assessment and Plan (1) Acute infective exacerbation of chronic obstructive airway disease: Assessment and Plan: C/w solumedrol and albuterol. Mucinex to help with mucus/secretions. (2) COVID: Assessment and Plan: Tested positive for COVID. Not vaccinated. On systemic steroids for COPD. Joe. (3) Headache: Assessment and Plan: Reports persistent frontal DAN. Could be due to sinusitis from COVID. 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 Monitor Oxygenation closely. (6) Current smoker: Assessment and Plan: Has cut down smoking but still smokes. Nicotine patch ordered. (7) Pulmonary cachexia due to chronic obstructive pulmonary disease: Assessment and Plan: due to end stage COPD. Has bitemporal wasting, proximal muscle wasting, continues to lose weight. Added ensure.
[2023-02-05] MEDS: ENOXAPARIN SODIUM 40 MG/0.4 ML SYRINGE SUBQ (12:59)
[2023-02-05] MEDS: ASPIRIN 81 MG TAB.CHEW PO (12:59)
[2023-02-05] MEDS: FLUTICASONE PROPIONATE 50 MCG NASAL SPRAY 2 SPRAY NS (13:00)
[2023-02-05] MEDS: ENSURE CLEAR 237 ML LIQUID PO (13:00)
[2023-02-05] MEDS: GUAIFENESIN 600 MG TAB.ER.12H PO ×2 (13:02→20:03)
[2023-02-05] MEDS: ALBUTEROL SULFATE 200 PUFF/6.7 GM INHALER IH ×3 (15:21→23:10)
[2023-02-05] MEDS: METHYLPREDNISOLONE SOD SUCC PF 40 MG/ML VIAL IVP (17:05)
[2023-02-05] MEDS: ACETAMINOPHEN 325 MG TABLET 650 MG PO (20:03)
[2023-02-06] VITALS (11 sets, daily range): BP systolic 133–147; BP diastolic 66–82; PULSE 84–118; RESP 18–23; TEMP 36.6–36.8; O2SAT 3–97
[2023-02-06] MEDS: METHYLPREDNISOLONE SOD SUCC PF 40 MG/ML VIAL IVP ×3 (01:04→18:08)
[2023-02-06] MEDS: ALBUTEROL SULFATE 200 PUFF/6.7 GM INHALER IH ×2 (03:50→06:44)
[2023-02-06 06:02] LABS: Basophils Percent Auto 0.2 % (0.2-2.0); Hematocrit 42.6 % (42.0-54.0); Hemoglobin 13.5 g/dL (14.0-18.0); Immature Granulocytes Abs Auto 0.25 10^3/uL (0.00-0.03); Immature Granulocytes Pct Auto 2.2 % (0.0-0.5); Lymphocytes Absolute Auto 0.7 10^3/uL (1.2-3.8); Lymphocytes Percent Auto 5.8 % (20.5-60.0); Mean Corpuscular HGB Conc 31.7 g/dL (29.9-35.2); Mean Corpuscular Hemoglobin 31.6 pg (25.9-34.0); Mean Corpuscular Volume 99.8 fL (80.0-94.0); Mean Platelet Volume 11.9 fL (9.5-13.5); Monocytes Absolute Auto 0.3 10^3/uL (0.3-0.8); Monocytes Percent Auto 2.8 % (1.7-12.0); Neutrophils Absolute Auto 10.1 10^3/uL (1.4-6.5); Platelet Count 195 10^3/uL (150-450); Red Blood Count 4.27 10^6/uL (4.70-6.10); Red Cell Distribution Width 13.4 % (11.0-15.0); White Blood Count 11.3 10^3/uL (4.0-11.0)
[2023-02-06 06:48] LABS: Alanine Aminotransferase 75 U/L (16-63); Albumin Globulin Ratio 0.9; Albumin Level 2.9 g/dL (3.4-5.0); Alkaline Phosphatase 100 U/L (46-116); Anion Gap 8.1; Aspartate Amino Transferase 25 U/L (15-37); BUN Creatinine Ratio 19.2; Bilirubin Total 0.4 mg/dL (0.2-1.0); Calcium 8.2 mg/dL (8.5-10.1); Carbon Dioxide 32.3 mmol/L (21.0-32.0); Chloride 102 mmol/L (98-107); Estimated GFR (African America >60 (>=60); Estimated GFR (Non-African Ame >60 (>=60); Globulin 3.4 g/dL; Glucose 203 mg/dL (74-106); Potassium 4.4 mmol/L (3.5-5.1); Sodium 138 mmol/L (136-145); Total Protein 6.3 g/dL (6.4-8.2)
[2023-02-06] MEDS: FLUTICASONE PROPIONATE 50 MCG NASAL SPRAY 2 SPRAY NS (09:19)
[2023-02-06] MEDS: ASPIRIN 81 MG TAB.CHEW PO (09:19)
[2023-02-06] MEDS: GUAIFENESIN 600 MG TAB.ER.12H PO ×2 (09:19→21:30)
[2023-02-06] MEDS: ENOXAPARIN SODIUM 40 MG/0.4 ML SYRINGE SUBQ (09:19)
[2023-02-06] MEDS: IBUPROFEN 600 MG TABLET PO (09:29)
[2023-02-06 12:08] LABS: SARS-CoV-2 Ag NEGATIVE (NEGATIVE)
[2023-02-06] MEDS: BUTALB/ACETAMINOPHEN/CAFFEINE 50-325-40MG TABLET 1 TAB PO (12:17)
[2023-02-06] MEDS: LEVOFLOXACIN IN DEXTROSE 5 % 750 MG/150 ML PIGGYBACK IV (14:01)
[2023-02-06] MEDS: LORAZEPAM 0.5 MG TABLET PO (14:09)
[2023-02-06] MEDS: IPRATROPIUM/ALBUTEROL SULFATE 3 ML AMPUL.NEB IH ×3 (15:11→23:39)
--- NOTE | 2023-02-06 15:11 | P.PN_ITS ---
Progress Note: Subjective Subjective Interval history: Patient unchanged this am. Continues to have severe SOB and chest tightness. Continued wheezing and albuterol inhaler isn't helping. Afebrile and normal WBC. Normal appetite and no emesis or diarrhea. No chest pain or palpitations. Exam Constitutional Vital Signs, click to edit/add: Last Vital Signs Temp 98.3 F 02/06/23 14:00 Pulse 112 H 02/06/23 14:00 Resp 20 02/06/23 14:00 BP 147/66 H 02/06/23 14:00 Pulse Ox 96 02/06/23 14:00 O2 Del Method Nasal Cannula 02/06/23 14:00 O2 Flow Rate 3 02/06/23 14:00 Documenting provider has reviewed patient's vital signs: yes Common normals: no apparent distress, oriented x3 and alert HENMT Common normals: normocephalic Eye Common normals: PERRL and EOMs intact bilaterally Respiratory Auscultation: wheezes and diminished lung sounds Cardio Common normals: regular rate, regular rhythm, no gallops, no murmurs and no rub GI Common normals: Normal to inspection, nondistended, normoactive bowel sounds present and non-tender Extremity Common normals: no pedal edema Progress Note: Objective Labs Labs: Short CBC 02/06/23 Range/Units 05:07 WBC 11.3 H (4.0-11.0) 10^3/uL Hgb 13.5 L (14.0-18.0) g/dL Hct 42.6 (42.0-54.0) % Plt Count 195 (150-450) 10^3/uL BMP 02/06/23 05:07 Sodium 138 Potassium 4.4 Chloride 102 Carbon Dioxide 32.3 H BUN 20.0 H Creatinine 1.04 Glucose 203 H Calcium 8.2 L Liver Function 02/06/23 Range/Units 05:07 Total Bilirubin 0.4 (0.2-1.0) mg/dL AST 25 (15-37) U/L ALT 75 H (16-63) U/L Alkaline Phosphatase 100 (46-116) U/L Albumin 2.9 L (3.4-5.0) g/dL Progress Note: A&P Assessment and Plan (1) Acute infective exacerbation of chronic obstructive airway disease: (2) Chronic respiratory failure with hypoxia: (3) Anxiety: (4) Current smoker: Plan Repeat covid negative and take out of isolation. Start duoneb every 4 hours whi le awake. Continue solu-medrol and add levaquin. Continue home medication. Add ativan PRN for anxiety. Likely will need 2-3 more days in hospital.
[2023-02-06] MEDS: ENSURE CLEAR 237 ML LIQUID PO (21:30)
[2023-02-07] MEDS: METHYLPREDNISOLONE SOD SUCC PF 40 MG/ML VIAL IVP ×2 (02:39→09:01)
[2023-02-07 04:38] LABS: Basophils Percent Auto 0.1 % (0.2-2.0); Hematocrit 39.3 % (42.0-54.0); Hemoglobin 12.3 g/dL (14.0-18.0); Immature Granulocytes Abs Auto 0.23 10^3/uL (0.00-0.03); Immature Granulocytes Pct Auto 1.5 % (0.0-0.5); Lymphocytes Absolute Auto 0.7 10^3/uL (1.2-3.8); Lymphocytes Percent Auto 4.6 % (20.5-60.0); Mean Corpuscular HGB Conc 31.3 g/dL (29.9-35.2); Mean Corpuscular Hemoglobin 31.5 pg (25.9-34.0); Mean Corpuscular Volume 100.8 fL (80.0-94.0); Mean Platelet Volume 11.4 fL (9.5-13.5); Monocytes Absolute Auto 0.6 10^3/uL (0.3-0.8); Neutrophils Absolute Auto 13.4 10^3/uL (1.4-6.5); Neutrophils Percent Auto 89.8 % (43.0-75.0); Platelet Count 163 10^3/uL (150-450); Red Cell Distribution Width 13.7 % (11.0-15.0); White Blood Count 14.9 10^3/uL (4.0-11.0)
[2023-02-07 04:46] VITALS: BP 131/61; PULSE 99; RESP 18; TEMP 36.6; O2SAT 96
[2023-02-07 04:55] LABS: Alanine Aminotransferase 54 U/L (16-63); Albumin Globulin Ratio 0.8; Albumin Level 2.5 g/dL (3.4-5.0); Alkaline Phosphatase 80 U/L (46-116); Aspartate Amino Transferase 9 U/L (15-37); BUN Creatinine Ratio 35.2; Bilirubin Total 0.2 mg/dL (0.2-1.0); Carbon Dioxide 32.2 mmol/L (21.0-32.0); Chloride 104 mmol/L (98-107); Estimated GFR (African America >60 (>=60); Estimated GFR (Non-African Ame >60 (>=60); Glucose 207 mg/dL (74-106); Potassium 4.2 mmol/L (3.5-5.1); Sodium 137 mmol/L (136-145); Total Protein 5.5 g/dL (6.4-8.2)
[2023-02-07] MEDS: ASPIRIN 81 MG TAB.CHEW PO (09:01)
[2023-02-07] MEDS: ENOXAPARIN SODIUM 40 MG/0.4 ML SYRINGE SUBQ (09:01)
[2023-02-07] MEDS: GUAIFENESIN 600 MG TAB.ER.12H PO (09:01)
[2023-02-07] MEDS: FLUTICASONE PROPIONATE 50 MCG NASAL SPRAY 2 SPRAY NS (09:02)
[2023-02-07] MEDS: IPRATROPIUM/ALBUTEROL SULFATE 3 ML AMPUL.NEB IH ×2 (09:25→11:31)
[2023-02-07 09:26] VITALS: O2SAT 96
[2023-02-07 11:34] VITALS: O2SAT 97
[2023-02-07 11:38] LABS: SARS-CoV-2 NAA DETECTED (NOT DETECTE)
--- NOTE | 2023-02-07 14:37 | P.DS_ITS ---
DS: Providers Provider Date of admission: 02/05/23 10:49 Primary care physician: Shaikh Monster MD DS: Diagnosis Discharge Diagnosis (1) Acute infective exacerbation of chronic obstructive airway disease: (2) Chronic respiratory failure with hypoxia: (3) Anxiety: (4) Current smoker: DS: Summary Hospital Course Hospital Course: Reason for admission: See ER note and H&P for details. 67 y/o male with history of COPD on 3 LPM to ER with worsening SOB. Increased SOB and chest tightness. Frequent cough and sputum. Afebrile. Worsening symptoms and to ER. Normal SpO2 on usual 3 LPM. WBC normal and afebrile. Chest x-ray without acute change. Covid positive and admitted. Hospital course: Started solu-medrol and albuterol inhaler. Resumed home medication. Continued SOB and wheezing. Added levaquin. Repeat Covid negative. Started DuoNeb and improved. SOB and tightness improved. Ambulating around room. [place] close to baseline and discharged home. Will take prednisone tapered over 12 days and levaquin x 7 days. Resume home medication as directed. F/u with PCP in 2-5 days. Time Spent with Patient Time attestation: Total time spent providing and/or coordinating discharge services: Quality: Stroke Symptom Onset Unknown: No Exam Constitutional Vital Signs, click to edit/add: Last Vital Signs Temp 97.8 F 02/07/23 04:46 Pulse 99 H 02/07/23 04:46 Resp 18 02/07/23 04:46 BP 131/61 02/07/23 04:46 Pulse Ox 97 02/07/23 11:34 O2 Del Method Nasal Cannula 02/07/23 11:34 O2 Flow Rate 3 02/07/23 11:34 Documenting provider has reviewed patient's vital signs: yes Common normals: no apparent distress, oriented x3 and alert HENMT Common normals: normocephalic Eye Common normals: PERRL and EOMs intact bilaterally Respiratory Auscultation: wheezes and diminished lung sounds Cardio Common normals: regular rate, regular rhythm, no gallops, no murmurs and no rub GI Common normals: Normal to inspection, nondistended, normoactive bowel sounds present and non-tender Extremity Common normals: no pedal edema DS: Data Data Completed and Pending Labs on day of discharge: Labs from last 24 hours 02/07/23 02/06/23 04:16 11:50 WBC 14.9 H RBC 3.90 L Hgb 12.3 L Hct 39.3 L MCV 100.8 H MCH 31.5 MCHC 31.3 RDW 13.7 Plt Count 163 MPV 11.4 Neut % (Auto) 89.8 H Lymph % (Auto) 4.6 L Johnston % (Auto) 4.0 Eos % (Auto) 0.0 L Baso % (Auto) 0.1 L Neut # (Auto) 13.4 H Lymph # (Auto) 0.7 L Johnston # (Auto) 0.6 Eos # (Auto) 0.0 Baso # (Auto) 0.0 Abs Immat Gran (auto) 0.23 H Imm/Tot Granulo (auto) 1.5 H Sodium 137 Potassium 4.2 Chloride 104 Carbon Dioxide 32.2 H Anion Gap 5.0 BUN 25.0 H Creatinine 0.71 Est GFR ( Amer) >60 Est GFR (Non-Af Amer) >60 BUN/Creatinine Ratio 35.2 Glucose 207 H Calcium 8.0 L Total Bilirubin 0.2 AST 9 L ALT 54 Alkaline Phosphatase 80 Total Protein 5.5 L Albumin 2.5 L Globulin 3.0 Albumin/Globulin Ratio 0.8 SARS-CoV-2 RNA (ANGELA) Detected A Preliminary micro results at discharge 02/05/23 10:18 - Preliminary Blood 02/05/23 09:46 Blood Culture Result 1 - Preliminary Blood Discharge Plan Discharge Disposition: Home, Self-Care Condition: Good Discharge Medications: New prednisone 10 mg tablets,dose pack 10 mg PO DAILY Qty: 39 0RF Rx Instructions: 6 PO daily x 3 days, then 4 PO daily x 3 days, then 2 PO daily x 3 days, then 1 PO daily x 3 days levofloxacin 750 mg tablet 750 mg PO DAILY 7 Days Qty: 7 0RF Continued hydroxyzine HCl 25 mg tablet 25 mg PO Q8H PRN (Reason: anxiety) Qty: 30 0RF budesonide 0.5 mg/2 mL suspension for nebulization 0.5 mg inhalation BID PRN (Reason: shortness of breath) Qty: 60 0RF albuterol sulfate 2.5 mg /3 mL (0.083 %) solution for nebulization 2.5 mg inhalation Q6H PRN (Reason: shortness of breath or wheezing) Bevespi [employer]osphere 9-4.8 mcg HFA aerosol inhaler 2 inh INHALATION Q12H aspirin 81 mg tablet,chewable 81 mg PO DAILY Discontinued prednisone 20 mg tablet 60 mg PO DAILY 10 Days Qty: 30 0RF Activity: resume usual activities as tolerated Diet: advance to your usual diet Patient Instructions: Prednisone (By mouth), Levofloxacin (By mouth), COPD (Chronic Obstructive Pulmonary Disease) (DC), How Your Lungs Work (ED), COVID-19 (Coronavirus Disease 2019) (ED) Forms: Portal Instructions Follow Up Appointments: Call to schedule a follow up appointment with Dr. Hook for 7 days after discharge [phone] Discharge Date/Time: 02/07/23 14:05
--- NOTE | 2023-02-08 14:23 | CM.DCFOLLOWU ---
Person spoke with: Boris How are you feeling? Still having issues breathing How is your pain? No pain Did you understand your discharge instructions? Yes Do you have any questions about your discharge instructions? No Were you given any prescriptions at discharge? Yes Were you able to get your prescriptions filled? Yes Do you understand how to take your medications as ordered? Yes Do you have any questions about your follow up appointment and do you plan to keep your follow up appointment? Calling today because Im not better Is there anything else that you would like to discuss? I reached out to [facility] [employer] for my oxygen to get to follow up appointments but they have not called back. Jaiden([employer] reaching out to them). Questions/Comments/Concerns/Other:
== END 2023-02-07 14:05 | disposition home or self-care (01) ==
LOC: ER 10:43 → MS 10:55
PROVIDERS: Admitting Provider Family Medicine; Emergency Provider Emergency Medicine; PCP Internal Medicine; Visit Provider Internal Medicine
DX: J44.1 Chronic obstructive pulmonary disease with (acute) exacerbation (principal); J96.11 Chronic respiratory failure with hypoxia; F41.9 Anxiety disorder, unspecified; E88.01 Alpha-1-antitrypsin deficiency; F17.210 Nicotine dependence, cigarettes, uncomplicated; R64 Cachexia; Z68.22 Body mass index [BMI] 22.0-22.9, adult; Z99.81 Dependence on supplemental oxygen; F12.90 Cannabis use, unspecified, uncomplicated; Z79.82 Long term (current) use of aspirin; Z79.899 Other long term (current) drug therapy; Z28.310 Unvaccinated for COVID-19
CPT/HCPCS: 36415; 70450; 71045; 80048; 80053; 83605; 83880; 84484; 85025; 87040; 87635; 87811; 93005; 94640; 94667; 94668; 94761; 96372; 96374; 96375; 96376; 99285; G0378; J2920; J2930; U0003

== ENCOUNTER 2023-02-09 17:26 | Inpatient (IN) | payer MEDICARE, MEDICAID, SELFPAY ==
[2023-02-09] VITALS (17 sets, daily range): BP systolic 119–145; BP diastolic 70–113; PULSE 99–125; RESP 15–32; TEMP 36.6–36.7; O2SAT 95–100; BMI 23.1; BMI 23.0
--- NOTE | 2023-02-09 17:34 | ECG_ITS ---
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
--- NOTE | 2023-02-09 17:34 | XR_ITS ---
The [address] [address] Patient Name: JAMSHID VARELA MRN: [id number] date: 1955 Sex: M Assigned Patient Location: ER Current Patient Location: ER Accession/Order Number: [id number] Exam Date: 02/09/2023 17:55 Report Date: 02/09/2023 18:20 At the request of: JEET SINGH Procedure: XR chest 1V EXAM: XR chest 1V HISTORY: Shortness of breath COMPARISON: 02/05/2023 TECHNIQUE: Portable AP study on 2 films FINDINGS: The cardiovascular silhouette is normal. Lung rosen are well-expanded and clear. Pleural spaces are clear. There is hyperexpansion of the thorax with flattening of the diaphragm. The bony structures are unremarkable. XR/XR chest 1V IMPRESSION: Hyperexpansion of the thorax. In the proper clinical setting, this finding can be associated with COPD. No acute cardiopulmonary process is otherwise identified. Electronically authenticated by: Radha MOONEY Date: 02/09/2023 18:20
--- NOTE | 2023-02-09 17:36 | ED_ITS ---
HPI - SOB/Dyspnea General Chief Complaint: Shortness of Breath/Dyspnea Stated Complaint: shortness of breath Time Seen by Provider: 02/09/23 17:27 Source: patient Mode of arrival: ambulance History of Present Illness HPI Narrative: patient is a 67-year-old male who presents to the emergency department by ambulance for increasing shortness of breath. Patient has a history of chronic obstructive pulmonary disease, he was admitted to this facility last week and discharged two days ago at his request. He was discharged home on antibiotics, he states he is on chronic steroids. He smokes two packs of cigarettes per day. He is on oxygen by nasal cannula at 3 L daily. He denies any new fevers, chest pain, hemoptysis. He does have sputum production with coughing, no peripheral edema. Related Data Home Medications Medication Instructions Recorded Confirmed albuterol sulfate 2.5 mg/3 mL 2.5 mg inhalation Q6H PRN 12/23/22 02/09/23 (0.083 %) solution for nebulization shortness of breath or wheezing aspirin 81 mg chewable tablet 81 mg PO DAILY 12/23/22 02/09/23 glycopyrrolate 9 mcg-formoterol 2 inh inhalation Q12H 12/23/22 02/09/23 4.8 mcg HFA aerosol inhaler (Bevespi Aerosphere) buspirone 10 mg tablet 10 mg PO DAILY 02/09/23 02/09/23 Previous Rx's Medication Instructions Recorded hydroxyzine HCl 25 mg tablet 25 mg PO Q8H PRN anxiety #30 tabs 01/09/23 budesonide 0.5 mg/2 mL suspension 0.5 mg (2 mL) inhalation BID PRN 02/07/23 for nebulization shortness of breath #60 mL levofloxacin 750 mg tablet 750 mg PO DAILY 7 days #7 tabs 02/07/23 prednisone 10 mg tablets in a dose 10 mg PO DAILY #39 ea 02/07/23 pack Allergies Allergy/AdvReac Type Severity Reaction Status Date / Time No Known Drug Allergies Allergy Verified 12/14/22 20:04 Review of Systems ROS Constitutional Denies: fever or chills Ears, nose, mouth, and throat Denies: throat pain Cardiovascular Denies: chest pain Respiratory Reports: shortness of breath, cough and wheezing Gastrointestinal Denies: nausea or vomiting Musculoskeletal Denies: back pain or neck pain Neurological Denies: headache Allergic/Immunologic Denies: hives or throat swelling [facility] Medical History (Updated 02/09/23 @ 18:53 by ELI Moss) 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 - Ajibb-7-kgadpsvnhug deficiency (ICD-10) Asthma exacerbation with COPD (chronic obstructive pulmonary disease) ?J44.1 - Chronic obstructive pulmonary disease with (acute) exacerbation (ICD-10) ?J45.901 - Unspecified asthma with (acute) exacerbation (ICD-10) Chronic obstructive pulmonary disease (COPD) ?J44.9 - Chronic obstructive pulmonary disease, unspecified (ICD-10) COPD (chronic obstructive pulmonary disease) ?J44.9 - Chronic obstructive pulmonary disease, unspecified (ICD-10) COPD with acute exacerbation ?J44.1 - Chronic obstructive pulmonary disease with (acute) exacerbation (ICD-10) COVID ?U07.1 - COVID-19 (ICD-10) COVID-19 ?U07.1 - COVID-19 (ICD-10) Headache ?R51.9 - Headache, unspecified (ICD-10) Leukocytosis ?D72.829 - Elevated white blood cell count, unspecified (ICD-10) Pulmonary cachexia due to chronic obstructive pulmonary disease ?J44.9 - Chronic obstructive pulmonary disease, unspecified (ICD-10) ?R64 - Cachexia (ICD-10) Family History Father Family history of CHF (congestive heart failure) Family history of hypertension Mother Family history of CHF (congestive heart failure) Family history of COPD (chronic obstructive pulmonary disease) Family history of hypertension Social History Within the past year, how often did you have a drink containing alcohol: monthly or less Within the past year, how many standard drinks containing alcohol did you have on a typical day: 1 or 2 Within the past year, how often did you have six or more drinks on one occasion: never Total score: 0 Score interpretation: A score less than 4 is consistent with normal alcohol consumption. Smoking status: Current every day smoker Non-prescribed substance use: cannabis (any form) Previous occupational history: retired Highest level of school completed/degree received: some college, no degree Are you now , , , , never or living with a partner: In a typical week, how many times do you talk on the telephone with family, friends, or neighbors: twice per week How often do you get together with friends or relatives: twice per week How often do you attend roman catholic or yazidi services: never Do you belong to any clubs or organizations such as roman catholic groups unions, fraternal or athletic groups, or school groups: no Total score: 1 Score interpretation: A score of less than or equal to 1 indicates the most socially isolated. Little interest or pleasure in doing things: not at all Feeling down, depressed, or hopeless: nearly every day Feel stressed/tense/nervous/anxious/difficulty sleeping: rather much Gender Identity: male Exam Narrative Exam Narrative: Gen.: Awake, alert, in no distress Head: Normocephalic, atraumatic ENT: Moist mucous membranes Respiratory: tachypnea, significant difficulty breathing when nasal cannula is removed to take the patient's shirt off, scattered rhonchi and wheezing globally Cardio: tachycardia Extremities: Moves extremities equally, no pedal edema Psych: Normal mood and affect Neuro: No focal neuro deficit Skin: Warm, dry, intact Constitutional Vital Signs, click to edit/add: Last Vital Signs Temp 97.9 F 02/09/23 17:28 Pulse 99 H 02/09/23 17:28 Resp 32 H 02/09/23 17:28 BP 145/113 H 02/09/23 17:28 Pulse Ox 98 02/09/23 17:28 O2 Del Method Nasal Cannula 02/09/23 17:28 O2 Flow Rate 4 02/09/23 17:28 Course Vital Signs Vital signs: Vital Signs Temperature 97.9 F 02/09/23 17:28 Pulse Rate 99 H 02/09/23 17:28 Respiratory Rate 32 H 02/09/23 17:28 Blood Pressure 145/113 H 02/09/23 17:28 Pulse Oximetry 98 02/09/23 17:28 Oxygen Delivery Method Nasal Cannula 02/09/23 17:28 Oxygen Delivery Flow Rate 4 02/09/23 17:28 Temperature 97.9 F 02/09/23 17:28 Pulse Rate 99 H 02/09/23 17:28 Respiratory Rate 32 H 02/09/23 17:28 Blood Pressure 145/113 H 10/10/23 17:28 Pulse Oximetry 98 02/09/23 17:28 Oxygen Delivery Method Nasal Cannula 02/09/23 17:28 Oxygen Delivery Flow Rate 4 02/09/23 17:28 MDM - SOB/Dyspnea MDM Narrative Medical decision making narrative: patient treated with breathing treatments, Solu-Medrol was given by EMS prior to arrival. Lab studies are stable, no EKG changes. chest x-ray shows stable chronic obstructive pulmonary disease, no evidence of pneumonia. Respiratory panel was obtained and is pending at this time. Discussed admission with the hospitalist, Dr. Lerma ([id number]) and we will admit for chronic obstructive pulmonary disease exacerbation. Medical Records Attestation: I reviewed the patient's medical records. Lab Data Attestation: I reviewed the patient's lab results. Imaging Data Chest x-ray: Attestation: I have reviewed the pertinent imaging results. Radiologist's impression: Procedure: XR chest 1V EXAM: XR chest 1V HISTORY: Shortness of breath COMPARISON: 02/05/2023 TECHNIQUE: Portable AP study on 2 films FINDINGS: The cardiovascular silhouette is normal. Lung roesn are well-expanded and clear. Pleural spaces are clear. There is hyperexpansion of the thorax with flattening of the diaphragm. The bony structures are unremarkable. IMPRESSION: Hyperexpansion of the thorax. In the proper clinical setting, this finding can be associated with COPD. No acute cardiopulmonary process is otherwise identified. Electronically authenticated by: Radha MOONEY Date: 02/09/2023 18:20 ECG Data Attestation: I personally reviewed and interpreted this ECG as follows: (sinus tachycardia at a rate of 115, no acute ST elevation or ectopy. EKG reviewed by attending physician) Discharge Plan Discharge Chief Complaint: Shortness of Breath/Dyspnea Patient Disposition: Admitted As Inpatient Time of Disposition Decision: 18:53 Prescriptions / Home Meds: No Action hydroxyzine HCl 25 mg tablet 25 mg PO Q8H PRN (Reason: anxiety) Qty: 30 0RF prednisone 10 mg tablets,dose pack 10 mg PO DAILY Qty: 39 0RF Rx Instructions: 6 PO daily x 3 days, then 4 PO daily x 3 days, then 2 PO daily x 3 days, then 1 PO daily x 3 days levofloxacin 750 mg tablet 750 mg PO DAILY 7 Days Qty: 7 0RF budesonide 0.5 mg/2 mL suspension for nebulization 0.5 mg inhalation BID PRN (Reason: shortness of breath) Qty: 60 0RF buspirone 10 mg tablet 10 mg PO DAILY albuterol sulfate 2.5 mg /3 mL (0.083 %) solution for nebulization 2.5 mg inhalation Q6H PRN (Reason: shortness of breath or wheezing) Bevespi Aerosphere 9-4.8 mcg HFA aerosol inhaler 2 inh INHALATION Q12H aspirin 81 mg tablet,chewable 81 mg PO DAILY Referrals: Shaikh Hook MD [Primary Care Provider] - 1 week
--- NOTE | 2023-02-09 17:39 | PC.NURSE ---
pt having trouble finishing sentence.
[2023-02-09] MEDS: ALBUTEROL SULFATE 2.5 MG/3 ML VIAL NEB IH (17:56)
[2023-02-09] MEDS: IPRATROPIUM/ALBUTEROL SULFATE 3 ML AMPUL.NEB IH ×2 (17:56→22:41)
--- NOTE | 2023-02-09 17:58 | RESP.RT ---
decreased to 3 LPM
[2023-02-09 18:00] LABS: Adenovirus NOT DETECTED (NOT DETECTE); Bordetella parapertussis NOT DETECTED (NOT DETECTE); Coronavirus 229E NOT DETECTED (NOT DETECTE); Coronavirus HKU1 NOT DETECTED (NOT DETECTE); Coronavirus NL63 NOT DETECTED (NOT DETECTE); Coronavirus OC43 NOT DETECTED (NOT DETECTE); Human Metapneumovirus NOT DETECTED (NOT DETECTE); Influenza A NOT DETECTED (NOT DETECTE); Influenza B NOT DETECTED (NOT DETECTE); Mycoplasma pneumoniae NOT DETECTED (NOT DETECTE); Parainfluenza Virus 1 NOT DETECTED (NOT DETECTE); Parainfluenza Virus 2 NOT DETECTED (NOT DETECTE); Parainfluenza Virus 3 NOT DETECTED (NOT DETECTE); Parainfluenza Virus 4 NOT DETECTED (NOT DETECTE); Respiratory Syncytial Virus NOT DETECTED (NOT DETECTE); SARS-CoV-2 NOT DETECTED (NOT DETECTE)
[2023-02-09 18:02] LABS: Hematocrit 47.9 % (42.0-54.0); Hemoglobin 15.3 g/dL (14.0-18.0); Mean Corpuscular HGB Conc 31.9 g/dL (29.9-35.2); Mean Corpuscular Hemoglobin 31.8 pg (25.9-34.0); Mean Corpuscular Volume 99.6 fL (80.0-94.0); Mean Platelet Volume 11.5 fL (9.5-13.5); Platelet Count 221 10^3/uL (150-450); Red Blood Count 4.81 10^6/uL (4.70-6.10); Red Cell Distribution Width 13.8 % (11.0-15.0); White Blood Count 9.8 10^3/uL (4.0-11.0)
[2023-02-09 18:06] LABS: PCO2 VBG 64.1 mmHg (40.0-52.0); pH VBG 7.372 (7.330-7.430)
[2023-02-09 18:18] LABS: Alanine Aminotransferase 161 U/L (16-63); Albumin Globulin Ratio 0.9; Albumin Level 3.1 g/dL (3.4-5.0); Alkaline Phosphatase 96 U/L (46-116); Anion Gap 5.8; Aspartate Amino Transferase 68 U/L (15-37); BUN Creatinine Ratio 25.5; Bilirubin Total 0.5 mg/dL (0.2-1.0); Calcium 8.5 mg/dL (8.5-10.1); Carbon Dioxide 35.9 mmol/L (21.0-32.0); Chloride 102 mmol/L (98-107); Estimated GFR (African America >60 (>=60); Estimated GFR (Non-African Ame >60 (>=60); Globulin 3.5 g/dL; Glucose 139 mg/dL (74-106); INR 1.03; Partial Thromboplastin Time 23.6 sec (22.3-36.2); Potassium 4.7 mmol/L (3.5-5.1); Prothrombin Time 10.9 sec (9.0-11.6); Sodium 139 mmol/L (136-145); Total Protein 6.6 g/dL (6.4-8.2)
--- NOTE | 2023-02-09 18:22 | PC.NURSE ---
resp turned O2 down to 3L, states pt was 99-100% on the 3L. Will continue to monitor
[2023-02-09 18:24] LABS: Troponin I High Sensitivity 25.1 pg/mL (4.0-76.1)
[2023-02-09 18:42] LABS: Band Neutrophils Absolute 0.1 10^3/uL (0.0-0.3); Lymphocytes Absolute Manual 0.39 10^3/uL (1.20-3.80); Monocytes Absolute Manual 1.27 10^3/uL (0.30-0.80); Segmented Neut Absolute Manual 8.03 10^3/uL (1.4-6.5)
[2023-02-09 19:10] LABS: Human Rhinovirus/Enterovirus DETECTED (NOT DETECTE)
--- NOTE | 2023-02-09 23:15 | W.PM.TELEPN ---
Progress Note: Subjective Subjective Interval history: The patient is a 67-year-old male with a history of chronic respiratory failure, 3 L oxygen dependent COPD, who was recently hospitalized for COPD exacerbation. He was noted to be COVID-positive during that hospitalization. He was discharged home on oral Levaquin and steroids and has been compliant with his medications. He is a chronic smoker but has only taken 2 puffs in the last 3 days due to his recent illness. Today, he had worsening shortness of breath and continues to have yellow productive thick white phlegm. He called EMS who found him to be more short of breath and they brought him over to the emergency room. They thought he had a COPD exacerbation and he was given Solu-Medrol. He is being admitted for further evaluation. Exam Narrative Exam Narrative: General : Alert and oriented x3 HEENT : Extraocular movements intact, pupils equal round and reactive to light and accommodation Neck: Supple, no JVD Chest: Scattered expiratory wheezes throughout Heart: Regular rate and rhythm, S1 and S2 heard Abdomen: Soft nontender nondistended. Extremities: No clubbing cyanosis or edema Neurologically: Moving all 4 extremities Skin: No rashes Constitutional Vital Signs, click to edit/add: Last Vital Signs Temp 98.0 F 02/09/23 20:08 Pulse 106 H 02/09/23 22:41 Resp 18 02/09/23 22:41 BP 137/79 02/09/23 20:08 Pulse Ox 96 02/09/23 22:41 O2 Del Method Nasal Cannula 02/09/23 22:41 O2 Flow Rate 3 02/09/23 22:41 Progress Note: Objective Labs Labs: Short CBC 02/09/23 Range/Units 17:51 WBC 9.8 (4.0-11.0) 10^3/uL Hgb 15.3 (14.0-18.0) g/dL Hct 47.9 (42.0-54.0) % Plt Count 221 (150-450) 10^3/uL BMP 02/09/23 17:51 Sodium 139 Potassium 4.7 Chloride 102 Carbon Dioxide 35.9 H BUN 25.0 H Creatinine 0.98 Glucose 139 H Calcium 8.5 Liver Function 02/09/23 Range/Units 17:51 Total Bilirubin 0.5 (0.2-1.0) mg/dL AST 68 H (15-37) U/L ALT 161 H (16-63) U/L Alkaline Phosphatase 96 (46-116) U/L Albumin 3.1 L (3.4-5.0) g/dL Progress Note: A&P Assessment and Plan (1) COPD exacerbation: (2) Chronic respiratory failure with hypoxia: (3) Current smoker: Assessment and Plan: The patient is a 67-year-old male with above medical problems, presenting with COPD exacerbation. COPD exacerbation -Patient is positive for rhinovirus -Continue aggressive pulmonary toilet -Mucolytic's, Solu-Medrol, nebulizers -Broaden antibiotics to cefepime and vancomycin in case patient has high risk of developing healthcare associated pneumonia Nicotine dependence -Provide nicotine patch DVT Prophylaxis -Lovenox, SCDs Medication review -Medication reconciliation form completed Goals of care -Full code Communications -Discussed with the emergency room physician -Discussed with the bedside nurse -Patient updated of plan of care, all questions answered to their satisfaction Disposition -Home when medically stable Telemedicine clause -As the provider of this telehealth evaluation, requested by the patient's evaluating physician, I attest that I introduced myself to the patient, provided my credentials and determined that telemedicine via a real-time, two-way interactive audio and video platform is an appropriate and effective means of providing this service. -I reviewed the patient's chart and had a discussion with the member of the patient's treatment team. -The patient and I mutually agreed with continuation of this evaluation via telemedicine. The patient consented for the telemedicine evaluation. -This virtual encounter was taken place from [place], [place]. The encounter was approximately 35 minutes. The nurse was present during the entire time of the encounter and was able to remove the stethoscope and appropriate directions. The patient was evaluated at [facility] Telemedicine Attestation Telemedicine Attestation I conducted this encounter from [] via secure live, [id number] video conference with the patient, located at [facility] with []. Prior to the interview, the risks and benefits of telemedicine were discussed with the patient and verbal consent was obtained.
[2023-02-09] MEDS: METHYLPREDNISOLONE SOD SUCC PF 40 MG/ML VIAL 60 MG IVP (23:57)
[2023-02-09] MEDS: VANCOMYCIN HCL 1,000 MG in 0.9 % SODIUM CHLORIDE 250 ML 250 MG IV (23:58)
[2023-02-10] VITALS (7 sets, daily range): BP systolic 127–158; BP diastolic 74–87; PULSE 80–114; RESP 12–22; TEMP 36.4–36.6; O2SAT 93–96
[2023-02-10] MEDS: IPRATROPIUM/ALBUTEROL SULFATE 3 ML AMPUL.NEB IH ×4 (04:08→20:11)
[2023-02-10 05:33] LABS: Basophils Absolute Auto 0.1 10^3/uL (0.0-0.1); Basophils Percent Auto 0.7 % (0.2-2.0); Hemoglobin 13.3 g/dL (14.0-18.0); Immature Granulocytes Abs Auto 0.46 10^3/uL (0.00-0.03); Immature Granulocytes Pct Auto 4.3 % (0.0-0.5); Lymphocytes Absolute Auto 0.7 10^3/uL (1.2-3.8); Lymphocytes Percent Auto 6.9 % (20.5-60.0); Mean Corpuscular HGB Conc 31.7 g/dL (29.9-35.2); Mean Corpuscular Hemoglobin 31.5 pg (25.9-34.0); Mean Corpuscular Volume 99.5 fL (80.0-94.0); Mean Platelet Volume 11.9 fL (9.5-13.5); Monocytes Absolute Auto 0.3 10^3/uL (0.3-0.8); Monocytes Percent Auto 2.6 % (1.7-12.0); Neutrophils Absolute Auto 9.1 10^3/uL (1.4-6.5); Neutrophils Percent Auto 85.5 % (43.0-75.0); Platelet Count 160 10^3/uL (150-450); Red Blood Count 4.22 10^6/uL (4.70-6.10); Red Cell Distribution Width 13.6 % (11.0-15.0); White Blood Count 10.6 10^3/uL (4.0-11.0)
[2023-02-10 05:38] LABS: Anion Gap 6.3; BUN Creatinine Ratio 22.5; Carbon Dioxide 32.9 mmol/L (21.0-32.0); Chloride 101 mmol/L (98-107); Estimated GFR (African America >60 (>=60); Estimated GFR (Non-African Ame >60 (>=60); Glucose 255 mg/dL (74-106); Potassium 4.2 mmol/L (3.5-5.1); Sodium 136 mmol/L (136-145)
[2023-02-10] MEDS: METHYLPREDNISOLONE SOD SUCC PF 40 MG/ML VIAL 60 MG IVP ×3 (06:02→22:22)
[2023-02-10] MEDS: NICOTINE 14 MG PATCH TD (08:47)
[2023-02-10] MEDS: ASPIRIN 81 MG TAB.CHEW PO (08:48)
[2023-02-10] MEDS: BUSPIRONE HCL 10 MG TABLET PO (08:48)
[2023-02-10] MEDS: GUAIFENESIN 600 MG TAB.ER.12H PO ×2 (08:48→20:31)
[2023-02-10] MEDS: ENOXAPARIN SODIUM 40 MG/0.4 ML SYRINGE SUBQ (09:42)
[2023-02-10] MEDS: LEVOFLOXACIN IN DEXTROSE 5 % 750 MG/150 ML IV.SOLN 100 MG IV (10:08)
--- NOTE | 2023-02-10 11:51 | P.HP_ITS ---
H&P: HPI History of Present Illness Chief complaint: SOB Narrative: 67 y/o male with a history of COPD on 3 LPM to ER with SOB. COPD worsening over the past several weeks and frequent hospitalizations. Most recent 02/05-02/07 and discharged on oral prednisone and levaquin. C/o increased SOB over past day. Severe fatigue with minimal exertion and hard to stay active. Chest tight and hard to take deep breath. Continued cough and sputum. To ER and normal SpO2 on 3 LPM. Chest x-ray without acute change. Given steroids and breathing treatments but continued to have severe wheezing. Admitted for treatment. Started solu-medrol and duonebs. Started antibiotics and resumed home medication. Patient unchanged this am. Still with severe SOB and chest tightness. 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 - Kgxzn-5-flgrvhjytlw deficiency (ICD-10) Asthma exacerbation with COPD (chronic obstructive pulmonary disease) ?J44.1 - Chronic obstructive pulmonary disease with (acute) exacerbation (ICD-10) ?J45.901 - Unspecified asthma with (acute) exacerbation (ICD-10) Chronic obstructive pulmonary disease (COPD) ?J44.9 - Chronic obstructive pulmonary disease, unspecified (ICD-10) COPD (chronic obstructive pulmonary disease) ?J44.9 - Chronic obstructive pulmonary disease, unspecified (ICD-10) COPD with acute exacerbation ?J44.1 - Chronic obstructive pulmonary disease with (acute) exacerbation (ICD-10) COVID ?U07.1 - COVID-19 (ICD-10) COVID-19 ?U07.1 - COVID-19 (ICD-10) Headache ?R51.9 - Headache, unspecified (ICD-10) Leukocytosis ?D72.829 - Elevated white blood cell count, unspecified (ICD-10) Pulmonary cachexia due to chronic obstructive pulmonary disease ?J44.9 - Chronic obstructive pulmonary disease, unspecified (ICD-10) ?R64 - Cachexia (ICD-10) Shortness of breath ?R06.02 - Shortness of breath (ICD-10) Family History Father Family history of CHF (congestive heart failure) Family history of hypertension Mother Family history of CHF (congestive heart failure) Family history of COPD (chronic obstructive pulmonary disease) Family history of hypertension Social History Within the past year, how often did you have a drink containing alcohol: monthly or less Within the past year, how many standard drinks containing alcohol did you have on a typical day: 1 or 2 Within the past year, how often did you have six or more drinks on one occasion: never Total score: 0 Score interpretation: A score less than 4 is consistent with normal alcohol consumption. Smoking status: Current every day smoker Non-prescribed substance use: cannabis (any form) Previous occupational history: retired Highest level of school completed/degree received: some college, no degree Are you now , , , , never or living with a partner: In a typical week, how many times do you talk on the telephone with family, friends, or neighbors: twice per week How often do you get together with friends or relatives: twice per week How often do you attend mandaeism or christianity services: never Do you belong to any clubs or organizations such as mandaeism groups unions, [employer] or athletic groups, or school groups: no Total score: 1 Score interpretation: A score of less than or equal to 1 indicates the most socially isolated. Little interest or pleasure in doing things: not at all Feeling down, depressed, or hopeless: nearly every day Feel stressed/tense/nervous/anxious/difficulty sleeping: rather much Do you think of yourself as: straight/heterosexual Gender Identity: male Meds Home Medications and Allergies Home Medications Medication Instructions Recorded Confirmed Type albuterol sulfate 2.5 mg/3 mL 2.5 mg inhalation Q6H PRN 12/23/22 02/09/23 History (0.083 %) solution for nebulization shortness of breath or wheezing aspirin 81 mg chewable tablet 81 mg PO DAILY 12/23/22 02/09/23 History glycopyrrolate 9 mcg-formoterol 2 inh inhalation Q12H 12/23/22 02/09/23 History 4.8 mcg HFA aerosol inhaler (Bevespi Aerosphere) budesonide 0.5 mg/2 mL suspension 0.5 mg (2 mL) inhalation BID PRN 02/07/23 02/09/23 Rx for nebulization shortness of breath #60 mL levofloxacin 750 mg tablet 750 mg PO DAILY 7 days #7 tabs 02/07/23 02/09/23 Rx prednisone 10 mg tablets in a dose 10 mg PO DAILY #39 ea 02/07/23 02/09/23 Rx pack buspirone 10 mg tablet 10 mg PO DAILY 02/09/23 02/09/23 History fluticasone propionate 50 2 spray intranasal DAILY 02/10/23 02/10/23 History mcg/actuation nasal spray,suspension (24 Hour Allergy Relief) oxymetazoline 0.05 % nasal spray 2 spray intranasal Q12H 02/10/23 02/10/23 History (12 Hour Nasal Relief [place]) Allergies Allergy/AdvReac Type Severity Reaction Status Date / Time No Known Drug Allergies Allergy Verified 12/14/22 20:04 Exam Constitutional Vital Signs, click to edit/add: Last Vital Signs Temp 97.6 F 02/10/23 06:00 Pulse 85 02/10/23 06:00 Resp 20 02/10/23 06:00 BP 127/87 02/10/23 06:00 Pulse Ox 96 02/10/23 06:00 O2 Del Method Nasal Cannula 02/10/23 06:00 O2 Flow Rate 3 02/10/23 06:00 Documenting provider has reviewed patient's vital signs: yes Common normals: no apparent distress, oriented x3 and alert HENMT Common normals: normocephalic Eye Common normals: PERRL and EOMs intact bilaterally Cardio Common normals: regular rate, regular rhythm, no gallops, no murmurs and no rub GI Common normals: Normal to inspection, nondistended, normoactive bowel sounds present and non-tender Extremity Common normals: no pedal edema Results Labs Labs: Short CBC 10/10/23 10/11/23 Range/Units 17:51 05:10 WBC 9.8 10.6 (4.0-11.0) 10^3/uL Hgb 15.3 13.3 L (14.0-18.0) g/dL Hct 47.9 42.0 (42.0-54.0) % Plt Count 221 160 (150-450) 10^3/uL BMP 02/09/23 02/10/23 17:51 05:10 Sodium 139 136 Potassium 4.7 4.2 Chloride 102 101 Carbon Dioxide 35.9 H 32.9 H BUN 25.0 H 20.0 H Creatinine 0.98 0.89 Glucose 139 H 255 H Calcium 8.5 8.0 L Liver Function 02/09/23 Range/Units 17:51 Total Bilirubin 0.5 (0.2-1.0) mg/dL AST 68 H (15-37) U/L ALT 161 H (16-63) U/L Alkaline Phosphatase 96 (46-116) U/L Albumin 3.1 L (3.4-5.0) g/dL ABG ABG results: 02/09/23 17:51 VBG pH 7.372 VBG pCO2 64.1 H Pulse Oximetry Attestation: I have reviewed the pertinent pulse oximetry results. Assessment and Plan Assessment and Plan (1) COPD exacerbation: (2) Rhinovirus infection: (3) Chronic respiratory failure with hypoxia: (4) Anxiety: (5) Current smoker: Plan Multiple hospitalizations and continued symptoms. Continue antibiotics, steroids, and breathing treatments. COPD worsening and appears to be end stage. Very difficult to complete ADLs or function at home. Will consult hospice for possible comfort care. Continue home medication. Patient meets inpatient criteria based on requiring at least 2 midnights in the hospital for continued treatment of COPD.
--- NOTE | 2023-02-10 12:15 | SWNOTE1 ---
SW spoke with case management and pt is agreeable to meet with hospice. He would like [facility]. SW sent referral to [facility].
--- NOTE | 2023-02-10 12:36 | CM.NOTE ---
Rounds made with Dr. Garcia, discussed plan of care with pt and chronic disease process. Pt verbalizes concerns with ambulation and fatique, requesting power chair for home. Message left for [place] at Dr. Garcia's office about Power Chair and moving forward with ordering. 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 Pt agrees to having information regarding all options and then making best decision for him. Pt at this time in agreement for to speak with Hospice, pt requests [facility]. Case Management reached out to [facility] for consult placed by Dr. Garcia, they will see pt sometime today for consult.
[2023-02-10] MEDS: VANCOMYCIN HCL 750 MG in 0.9 % SODIUM CHLORIDE 250 ML 250 MG IV ×2 (13:19→20:31)
--- NOTE | 2023-02-10 14:48 | SWNOTE1 ---
SW spoke with [facility] outside of room, they just completed meeting. Pt at this time is not ready to sign on and would like to process the information. Pt does qualify for Hospice and can stay a full code and sign on. SW to check on pt later today.
--- NOTE | 2023-02-10 14:51 | CM.NOTE ---
Important Message From [employer] discussed with pt, pt verbalizes understanding and signs paper. Original given to pt and copy placed on pt's chart.
[2023-02-10] MEDS: ACETAMINOPHEN 325 MG TABLET 650 MG PO (15:12)
--- NOTE | 2023-02-10 15:24 | CM.NOTE ---
Talked with pt after meeting with [facility], pt continues to voice concern at how much they can really help him. Reinforced how [facility] would be able to help him with more resources regarding his chronic condition. Explained to pt he could always sign and stop at anytime if he felt it was not good assistance. Discussed about cigarette use and smoking marijuana and how COPD is progressing, pt does verbalize understanding and is attempting to quit. Pt asks for anxiety medication, talked with Nurse Practitioner and order received.
[2023-02-10] MEDS: ALPRAZOLAM 0.25 MG TABLET PO (16:23)
[2023-02-10] MEDS: BUDESONIDE 0.5 MG/2 ML AMPULE NEB IH (20:11)
[2023-02-11] VITALS (9 sets, daily range): BP systolic 150–167; BP diastolic 80–93; PULSE 93–114; RESP 14–20; TEMP 36.5–36.8; O2SAT 97–99
[2023-02-11] MEDS: IPRATROPIUM/ALBUTEROL SULFATE 3 ML AMPUL.NEB IH ×4 (04:17→20:06)
[2023-02-11] MEDS: VANCOMYCIN HCL 750 MG in 0.9 % SODIUM CHLORIDE 250 ML 250 MG IV ×3 (04:37→20:29)
[2023-02-11] MEDS: METHYLPREDNISOLONE SOD SUCC PF 40 MG/ML VIAL 60 MG IVP ×3 (06:23→22:49)
[2023-02-11 07:02] LABS: Anion Gap 7.4; BUN Creatinine Ratio 41.3; Calcium 8.3 mg/dL (8.5-10.1); Chloride 104 mmol/L (98-107); Estimated GFR (African America >60 (>=60); Estimated GFR (Non-African Ame >60 (>=60); Glucose 148 mg/dL (74-106); Potassium 4.4 mmol/L (3.5-5.1); Sodium 142 mmol/L (136-145)
[2023-02-11 07:16] LABS: Hematocrit 41.1 % (42.0-54.0); Hemoglobin 13.1 g/dL (14.0-18.0); Mean Corpuscular HGB Conc 31.9 g/dL (29.9-35.2); Mean Corpuscular Volume 100.2 fL (80.0-94.0); Platelet Count 178 10^3/uL (150-450); Red Cell Distribution Width 13.7 % (11.0-15.0); White Blood Count 18.1 10^3/uL (4.0-11.0)
[2023-02-11 08:08] LABS: Band Neutrophils Absolute 0.4 10^3/uL (0.0-0.3); Segmented Neut Absolute Manual 15.38 10^3/uL (1.4-6.5)
[2023-02-11 08:09] LABS: Lymphocytes Absolute Manual 1.08 10^3/uL (1.20-3.80); Metamyelocytes Absolute Manual 0.18; Myelocytes Absolute Manual 0.18
[2023-02-11] MEDS: ENOXAPARIN SODIUM 40 MG/0.4 ML SYRINGE SUBQ (08:27)
[2023-02-11] MEDS: ASPIRIN 81 MG TAB.CHEW PO (08:28)
[2023-02-11] MEDS: NICOTINE 14 MG PATCH TD (08:28)
[2023-02-11] MEDS: GUAIFENESIN 600 MG TAB.ER.12H PO ×2 (08:28→20:29)
[2023-02-11] MEDS: BUSPIRONE HCL 10 MG TABLET PO (08:28)
[2023-02-11] MEDS: BISACODYL 5 MG TABLET 15 MG PO (11:13)
[2023-02-11] MEDS: 0.9 % SODIUM CHLORIDE 250 ML 10 ML IV (11:13)
[2023-02-11] MEDS: LEVOFLOXACIN IN DEXTROSE 5 % 750 MG/150 ML IV.SOLN 100 MG IV (11:13)
--- NOTE | 2023-02-11 11:18 | PM.PN ---
Progress Note: Subjective Subjective Interval history: Patient minimally improved overnight. Continues to have severe fatigue and SOB with exertion. Chest tight and continued wheezing. Normal SpO2 on home 3 LPM. Afebrile. Continued cough. Met with hospice and qualified but not sure if ready for services. Normal appetite and no emesis or diarrhea. No chest pain or palpitations. Exam Constitutional Vital Signs, click to edit/add: Last Vital Signs Temp 97.8 F 02/11/23 04:34 Pulse 98 H 02/11/23 04:34 Resp 18 02/11/23 04:34 BP 150/80 H 02/11/23 04:34 Pulse Ox 99 02/11/23 04:34 O2 Del Method Nasal Cannula 02/11/23 04:34 O2 Flow Rate 3 02/11/23 04:34 Documenting provider has reviewed patient's vital signs: yes Common normals: no apparent distress, oriented x3 and alert HENMT Common normals: normocephalic Eye Common normals: PERRL and EOMs intact bilaterally Respiratory Common normals: normal respiratory effort and clear to auscultation bilaterally Cardio Common normals: regular rate, regular rhythm, no gallops, no murmurs and no rub GI Common normals: Normal to inspection, nondistended, normoactive bowel sounds present and non-tender Extremity Common normals: no pedal edema Progress Note: Objective Labs Labs: Short CBC 02/11/23 Range/Units 06:36 WBC 18.1 H (4.0-11.0) 10^3/uL Hgb 13.1 L (14.0-18.0) g/dL Hct 41.1 L (42.0-54.0) % Plt Count 178 (150-450) 10^3/uL BMP 02/11/23 06:36 Sodium 142 Potassium 4.4 Chloride 104 Carbon Dioxide 35.0 H BUN 26.0 H Creatinine 0.63 L Glucose 148 H Calcium 8.3 L Progress Note: A&P Assessment and Plan (1) COPD exacerbation: (2) Rhinovirus infection: (3) Chronic respiratory failure with hypoxia: (4) Anxiety: (5) Current smoker: Plan Patient slow to improve and continue antibiotics, steroids, and breathing treatments. C/o constipation and add PRN medication. Long discussion with patient regarding worsening COPD and likely end stage disease. Advised feel patient would benefit from comfort care. Will discuss with family and consider hospice.
[2023-02-11] MEDS: ALPRAZOLAM 0.25 MG TABLET PO (11:26)
--- NOTE | 2023-02-11 12:02 | CM.NOTE ---
Rounds made with Dr. Garcia. Discussed Hospice Care with Mr. Mohr--currently would like to speak with family regarding Hospice. Dr. Garcia understands. Sal Onur also discussed his need for a power chair at home. Dr. Garcia discussed the need to have this done in the outpatient setting-- Onur verbalizes understanding.
--- NOTE | 2023-02-11 12:25 | SWNOTE1 ---
SW met with pt to discuss dc needs. SW asked pt how the meeting went with Hospice. Pt stated there was some things he liked and did not like. Pt did ask if she could come back and he thought she was coming back. SW let him know we can call and have her come back. Pt then spoke about his cousin going to a facility in [place] that she went to and got therapy. SW let him know it is called [facility] now. Pt asked about rehab and [facility]. SW let him know medicare would cover for him to go to rehab for a short time to get stronger. SW also let him know he does have medicaid and they do have terminal worker medicaid beds at [facility]. SW recommended he start with rehab and then determine if he wants to stay [facility] or attempt home or talk with hospice again. Pt called his cousin and put her on face time to discuss with her. She also recommended starting with rehab and going from there. SW did let pt and cousin know that he can't do hospice and rehab at the same time. Pt's cousin is aware. Pt was a little frustrated with this. SW and his cousin assured him that he can start with rehab and then see how he does and [facility] will assist with discharge planning from there. SW also let him know that SW will call Cindy at [facility] to update her on plan. Pt gave permission for [facility] to send information to [facility]. SW also let [facility] know as well. Pt did ask about power chair again and SW let him know that the doctor will work on it from office and SW to call office to let them know. The office is able to use a different company with different guidelines for power chair.
--- NOTE | 2023-02-11 13:26 | PT.DAILY ---
Physical Therapy Daily Note PT Daily Note/Assess Start: 02/11/23 13:24 Freq: Status: Active Protocol: Document 02/11/23 13:24 FRAN (Rec: 02/11/23 13:26 FRAN [id number]) Visit Not Completed Visit Not Completed Visit Not Completed Due to: Pt refusing Other Reason Visit Not Completed Pt declines PT this afternoon. Reports he does not have the strength or energy for anything but to lay in bed. Offered pt assistance with transfer to BS chair, offered restroom, and EOB sitting pt cont to decline. Follow up tomorrow. Physical Therapy Daily Note/Assessment Time In/Time Out Time In 13:20 Time Out 13:25 Pain In Pain N/A Pain Out Pain N/A GG. Functional Abilities and Goals-Complete for Swing Bed Patients Only [id number]. Self-Care [id number]. Mobility
--- NOTE | 2023-02-11 14:40 | SWNOTE1 ---
SW called and spoke to Concepcion in admissions at [facility], they have received referral, still need to review it.
[2023-02-11] MEDS: BUDESONIDE 0.5 MG/2 ML AMPULE NEB IH ×2 (15:16→20:06)
[2023-02-11] MEDS: LACTULOSE 10 GM/15 ML UD CUP 20 GM PO (15:19)
--- NOTE | 2023-02-11 15:35 | SWNOTE1 ---
SW received call back from [facility] and they are able to accept pt. SW notified nursing and pt.
[2023-02-11] MEDS: BISACODYL 10 MG RECTAL SUPPOSITORY PR (17:38)
[2023-02-12] VITALS (8 sets, daily range): BP systolic 135–148; BP diastolic 77; PULSE 84–115; RESP 18–24; TEMP 36.4–36.6; O2SAT 95–98
[2023-02-12] MEDS: IPRATROPIUM/ALBUTEROL SULFATE 3 ML AMPUL.NEB IH ×2 (04:08→10:56)
[2023-02-12] MEDS: VANCOMYCIN HCL 750 MG in 0.9 % SODIUM CHLORIDE 250 ML 250 MG IV (04:54)
[2023-02-12 05:07] LABS: Basophils Absolute Auto 0.1 10^3/uL (0.0-0.1); Basophils Percent Auto 0.6 % (0.2-2.0); Eosinophils Percent Auto 0.1 % (0.9-7.0); Hematocrit 43.5 % (42.0-54.0); Hemoglobin 13.5 g/dL (14.0-18.0); Immature Granulocytes Abs Auto 0.68 10^3/uL (0.00-0.03); Immature Granulocytes Pct Auto 3.7 % (0.0-0.5); Lymphocytes Absolute Auto 0.9 10^3/uL (1.2-3.8); Lymphocytes Percent Auto 4.8 % (20.5-60.0); Mean Corpuscular Hemoglobin 31.5 pg (25.9-34.0); Mean Corpuscular Volume 101.6 fL (80.0-94.0); Mean Platelet Volume 12.6 fL (9.5-13.5); Monocytes Absolute Auto 0.5 10^3/uL (0.3-0.8); Monocytes Percent Auto 2.5 % (1.7-12.0); Neutrophils Absolute Auto 16.1 10^3/uL (1.4-6.5); Neutrophils Percent Auto 88.3 % (43.0-75.0); Platelet Count 156 10^3/uL (150-450); Red Blood Count 4.28 10^6/uL (4.70-6.10); Red Cell Distribution Width 13.9 % (11.0-15.0); White Blood Count 18.2 10^3/uL (4.0-11.0)
[2023-02-12 05:20] LABS: Anion Gap 8.2; BUN Creatinine Ratio 36.8; Calcium 8.2 mg/dL (8.5-10.1); Carbon Dioxide 29.4 mmol/L (21.0-32.0); Chloride 102 mmol/L (98-107); Estimated GFR (African America >60 (>=60); Estimated GFR (Non-African Ame >60 (>=60); Glucose 270 mg/dL (74-106); Potassium 4.6 mmol/L (3.5-5.1); Sodium 135 mmol/L (136-145)
[2023-02-12] MEDS: METHYLPREDNISOLONE SOD SUCC PF 40 MG/ML VIAL 60 MG IVP (06:04)
[2023-02-12] MEDS: BUSPIRONE HCL 10 MG TABLET PO (09:03)
[2023-02-12] MEDS: ENOXAPARIN SODIUM 40 MG/0.4 ML SYRINGE SUBQ (09:03)
[2023-02-12] MEDS: ASPIRIN 81 MG TAB.CHEW PO (09:03)
[2023-02-12] MEDS: POLYETHYLENE GLYCOL 3350 17 GM POWDER PACKET PO (09:03)
[2023-02-12] MEDS: GUAIFENESIN 600 MG TAB.ER.12H PO (09:03)
[2023-02-12] MEDS: NICOTINE 14 MG PATCH TD (09:04)
[2023-02-12] MEDS: ALBUTEROL SULFATE 2.5 MG/3 ML VIAL NEB IH (09:23)
[2023-02-12] MEDS: LEVOFLOXACIN IN DEXTROSE 5 % 750 MG/150 ML IV.SOLN 100 MG IV (09:25)
[2023-02-12] MEDS: ALPRAZOLAM 0.25 MG TABLET PO (09:25)
[2023-02-12] MEDS: BUDESONIDE 0.5 MG/2 ML AMPULE NEB IH (10:56)
--- NOTE | 2023-02-12 11:35 | CM.NOTE ---
Rounds made with alena Jarrett to discharge to [facility] for skilled therapy.
--- NOTE | 2023-02-12 11:49 | P.DS_ITS ---
DS: Providers Provider Date of admission: 02/09/23 19:53 Primary care physician: Shaikh Monster MD Consults: 02/09/23 21:56 Physical Therapy Eval and Treat Routine Reason for consultation: weakness 02/10/23 10:51 Consult to Hospice Routine Reason for consultation: copd DS: Diagnosis Discharge Diagnosis (1) COPD exacerbation: (2) Rhinovirus infection: (3) Chronic respiratory failure with hypoxia: (4) Anxiety: (5) Current smoker: DS: Summary Hospital Course Hospital Course: Reason for admission: See H&P for details. 67 y/o male with a history of COPD on 3 LPM to ER with SOB. COPD worsening over the past several weeks and frequent hospitalizations. Most recent 02/05-02/07 and discharged on oral prednisone and levaquin. C/o increased SOB over past day. Severe fatigue with minimal exertion and hard to stay active. Chest tight and hard to take deep breath. Continued cough and sputum. To ER and normal SpO2 on 3 LPM. Chest x- ray without acute change. Given steroids and breathing treatments but continued to have severe wheezing. Admitted for treatment. Hospital course: Started solu-medrol and duonebs. Started antibiotics and resumed home medication. Patient unchanged overnight and continued to have severe SOB and chest tightness. Continued expiratory wheezing. Discussed patient's decline and likely end stage COPD. Discussed multiple hospitalizations and options. Patient met with hospice but decided not ready for comfort care. Slightly better in hospital but continued wheezing. Continued SOB with minimal exertion. Patient agreed to SNF and arrangements made by social worker clinical. Patient transferred in stable condition. Resume medication as directed. Time Spent with Patient Time attestation: Total time spent providing and/or coordinating discharge services: Exam Constitutional Vital Signs, click to edit/add: Last Vital Signs Temp 97.5 F L 02/12/23 04:44 Pulse 84 02/12/23 09:23 Resp 20 02/12/23 09:23 BP 135/77 02/12/23 04:44 Pulse Ox 95 02/12/23 11:01 O2 Del Method Nasal Cannula 02/12/23 11:01 O2 Flow Rate 3 02/12/23 11:01 Documenting provider has reviewed patient's vital signs: yes Common normals: no apparent distress, oriented x3 and alert HENMT Common normals: normocephalic Eye Common normals: PERRL and EOMs intact bilaterally Respiratory Common normals: normal respiratory effort and clear to auscultation bilaterally Cardio Common normals: regular rate, regular rhythm, no gallops, no murmurs and no rub GI Common normals: Normal to inspection, nondistended, normoactive bowel sounds present and non-tender Extremity Common normals: no pedal edema DS: Data Data Completed and Pending Labs on day of discharge: Labs from last 24 hours 02/12/23 04:30 WBC 18.2 H RBC 4.28 L Hgb 13.5 L Hct 43.5 MCV 101.6 H MCH 31.5 MCHC 31.0 RDW 13.9 Plt Count 156 MPV 12.6 Neut % (Auto) 88.3 H Lymph % (Auto) 4.8 L Simpson % (Auto) 2.5 Eos % (Auto) 0.1 L Baso % (Auto) 0.6 Neut # (Auto) 16.1 H Lymph # (Auto) 0.9 L Simpson # (Auto) 0.5 Eos # (Auto) 0.0 Baso # (Auto) 0.1 Abs Immat Gran (auto) 0.68 H Imm/Tot Granulo (auto) 3.7 H Sodium 135 L Potassium 4.6 Chloride 102 Carbon Dioxide 29.4 Anion Gap 8.2 BUN 28.0 H Creatinine 0.76 Est GFR ( Amer) >60 Est GFR (Non-Af Amer) >60 BUN/Creatinine Ratio 36.8 Glucose 270 H Calcium 8.2 L Discharge Plan Discharge Condition: Good Discharge Medications: New prednisone 20 mg tablet 20 mg PO DAILY Qty: 1 0RF Rx Instructions: 3 PO daily x 3 days, then 2 PO daily x 3 days, then 1 PO daily alprazolam 0.5 mg tablet 0.5 mg PO TID PRN (Reason: anxiety) 5 Days Qty: 15 0RF Continued levofloxacin 750 mg tablet 750 mg PO DAILY 7 Days Qty: 7 0RF budesonide 0.5 mg/2 mL suspension for nebulization 0.5 mg inhalation BID PRN (Reason: shortness of breath) Qty: 60 0RF buspirone 10 mg tablet 10 mg PO DAILY oxymetazoline [12 Hour Nasal Relief Milo] 0.05 % spray,non-aerosol 2 spray intranasal Q12H fluticasone propionate [24 Hour Allergy Relief] 50 mcg/actuation spray,suspension 2 spray intranasal DAILY Rx Instructions: administer into each nostril albuterol sulfate 2.5 mg /3 mL (0.083 %) solution for nebulization 2.5 mg inhalation Q6H PRN (Reason: shortness of breath or wheezing) Bevespi Aerosphere 9-4.8 mcg HFA aerosol inhaler 2 inh INHALATION Q12H aspirin 81 mg tablet,chewable 81 mg PO DAILY Discontinued prednisone 10 mg tablets,dose pack 10 mg PO DAILY Qty: 39 0RF Rx Instructions: 6 PO daily x 3 days, then 4 PO daily x 3 days, then 2 PO daily x 3 days, then 1 PO daily x 3 days Hunter Guide/Hospice Care Consultant Instructions: Discharge to [facility] for rehab. Forms: Portal Instructions
--- NOTE | 2023-02-12 12:38 | SWNOTE1 ---
Pt is ready for discharge today and she he is going to [facility] skilled for rehab. EMA sent over dc information, completed HENS and set up transport. [facility]MA set up trips and they will be here between 2:00 and 2;30. SW notified pt, nursing, and [facility] of time. SW updated packet.
--- NOTE | 2023-02-12 14:30 | PC.NURSE ---
report called to [facility]. all questions asked and answered
== END 2023-02-12 14:35 | DRG 191 ==
LOC: ER 18:53 → MS 20:18
PROVIDERS: Physician Assistant; Admitting Provider Internal Medicine; Emergency Provider Emergency Medicine Emergency Medical Services; PCP Internal Medicine; Visit Provider Family Medicine
DX: J44.1 Chronic obstructive pulmonary disease with (acute) exacerbation (principal); J96.11 Chronic respiratory failure with hypoxia; R64 Cachexia; B34.8 Other viral infections of unspecified site; R53.83 Other fatigue; R00.0 Tachycardia, unspecified; E88.01 Alpha-1-antitrypsin deficiency; F41.9 Anxiety disorder, unspecified; F17.210 Nicotine dependence, cigarettes, uncomplicated; Z86.16 Personal history of COVID-19; Z68.22 Body mass index [BMI] 22.0-22.9, adult; Z99.81 Dependence on supplemental oxygen; Z79.82 Long term (current) use of aspirin; Z79.899 Other long term (current) drug therapy; Z82.49 Family history of ischemic heart disease and other diseases of the circulatory system; Z82.5 Family history of asthma and other chronic lower respiratory diseases
CPT/HCPCS: 0202U; 36415; 70450; 71045; 80048; 80053; 82800; 83605; 83880; 84484; 85025; 85027; 85610; 85730; 87040; 87635; 87811; 93005; 94640; 94667; 94668; 94761; 96365; 96366; 96367; 96372; 96374; 96375; 96376; 97161; 97530; 99285; G0378; J2920; J2930; J3370; Q3014; U0003

== ENCOUNTER 2023-04-12 18:09 | Emergency (ER) | payer MEDICARE, MEDICAID, SELFPAY ==
[2023-04-12 18:14] VITALS: BP 160/118; PULSE 16; RESP 16; TEMP 36.7; O2SAT 98; BMI 25.5
--- NOTE | 2023-04-12 18:14 | ED_ITS ---
HPI - General Adult General Chief complaint: Abdominal Pain Stated complaint: FLANK PAIN Time Seen by Provider: 04/12/23 18:12 History of Present Illness HPI narrative: Patient is a 67-year-old male who presents to the emergency department by ambulance from the nursing facility where he is a resident for the evaluation of right flank pain. Patient states last night he developed blood in his urine, he takes an 81 mg aspirin daily, no other anticoagulation. He denies any fevers, chills. He has had nausea but no vomiting. He states today throughout the day he has had worsened right lower back pain radiating into the abdomen. The long-term facility was planning to check his urine, but the patient called 911 for himself to be brought to the ER. No medications given for pain prior to arrival. Related Data Home Medications Medication Instructions Recorded Confirmed albuterol sulfate 2.5 mg/3 mL 2.5 mg inhalation Q6H PRN 12/23/22 04/12/23 (0.083 %) solution for nebulization shortness of breath or wheezing aspirin 81 mg chewable tablet 81 mg PO DAILY 12/23/22 04/12/23 glycopyrrolate 9 mcg-formoterol 2 inh inhalation Q12H 12/23/22 04/12/23 4.8 mcg HFA aerosol inhaler (Bevespi [employer]) buspirone 10 mg tablet 10 mg PO DAILY 02/09/23 04/12/23 fluticasone propionate 50 2 spray intranasal DAILY 02/10/23 04/12/23 mcg/actuation nasal spray,suspension (24 Hour Allergy Relief) oxymetazoline 0.05 % nasal spray 2 spray intranasal Q12H 02/10/23 02/10/23 (12 Hour Nasal Relief [place]) acetaminophen 325 mg tablet 650 mg PO Q6H PRN fever or pain 04/12/23 04/12/23 (Non-Aspirin) cholecalciferol (vitamin D3) 1,250 50,000 unit PO QWEEK 04/12/23 04/12/23 mcg (50,000 unit) tablet ferrous sulfate 325 mg (65 mg 325 mg PO DAILY 04/12/23 04/12/23 iron) tablet (Keesha-Time) metformin 500 mg tablet,extended 500 mg PO DAILY 04/12/23 04/12/23 release 24 hr omega 9-ace-smr-fish oil 1,000 mg 1 cap PO DAILY 04/12/23 04/12/23 (120 mg-180 mg) capsule (Fish Oil) oxymetazoline 0.05 % nasal spray 2 spray intranasal BID 04/12/23 04/12/23 prednisolone sodium phosphate 10 20 mg PO DAILY 04/12/23 04/12/23 mg disintegrating tablet umeclidinium 62.5 mcg/actuation 1 inh inhalation Q24H 04/12/23 04/12/23 blister powder for inhalation (Incruse Ellipta) Previous Rx's Medication Instructions Recorded budesonide 0.5 mg/2 mL suspension 0.5 mg (2 mL) inhalation BID PRN 02/07/23 for nebulization shortness of breath #60 mL levofloxacin 750 mg tablet 750 mg PO DAILY 7 days #7 tabs 02/07/23 alprazolam 0.5 mg tablet 0.5 mg PO TID PRN anxiety 5 days 02/12/23 #15 tabs prednisone 20 mg tablet 20 mg PO DAILY #1 tab 02/12/23 cephalexin 500 mg capsule 500 mg PO Q8H 10 days #30 caps 04/12/23 cephalexin 500 mg capsule 500 mg PO Q8H 10 days #30 caps 04/12/23 hydrocodone 5 mg-acetaminophen 325 1 tab PO Q6H PRN pain 3 days #12 04/12/23 mg tablet tabs ondansetron 4 mg disintegrating 4 mg PO Q6H PRN nausea and 04/12/23 tablet vomiting #12 tabs ondansetron 4 mg disintegrating 4 mg PO Q6H PRN nausea and 04/12/23 tablet vomiting #12 tabs Allergies Allergy/AdvReac Type Severity Reaction Status Date / Time No Known Drug Allergies Allergy Verified 04/12/23 18:16 Review of Systems ROS Constitutional Denies: fever or chills Ears, nose, mouth, and throat Denies: throat pain or nasal congestion Cardiovascular Denies: chest pain Respiratory Denies: shortness of breath or cough Gastrointestinal Reports: abdominal pain and nausea; Denies: vomiting or diarrhea Genitourinary Reports: blood in urine Musculoskeletal Reports: back pain Integumentary/Breast Denies: rash Neurological Denies: headache Endocrine Denies: excessive urination PFSH PFS Medical History (Updated 04/12/23 @ 20:28 by ELI Moss) COPD exacerbation ?J44.1 - Chronic obstructive pulmonary disease with (acute) exacerbation (ICD-10) Shortness of breath ?R06.02 - Shortness of breath (ICD-10) Headache ?R51.9 - Headache, unspecified (ICD-10) COVID ?U07.1 - COVID-19 (ICD-10) Acute infective exacerbation of chronic obstructive airway disease ?J44.1 - Chronic obstructive pulmonary disease with (acute) exacerbation (ICD-10) Anxiety ?F41.9 - Anxiety disorder, unspecified (ICD-10) Chronic obstructive pulmonary disease (COPD) ?J44.9 - Chronic obstructive pulmonary disease, unspecified (ICD-10) Current smoker ?F17.200 - Nicotine dependence, unspecified, uncomplicated (ICD-10) Leukocytosis ?D72.829 - Elevated white blood cell count, unspecified (ICD-10) Pulmonary cachexia due to chronic obstructive pulmonary disease ?J44.9 - Chronic obstructive pulmonary disease, unspecified (ICD-10) ?R64 - Cachexia (ICD-10) COVID-19 ?U07.1 - COVID-19 (ICD-10) Chronic respiratory failure with hypoxia ?J96.11 - Chronic respiratory failure with hypoxia (ICD-10) COPD (chronic obstructive pulmonary disease) ?J44.9 - Chronic obstructive pulmonary disease, unspecified (ICD-10) [place]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) COPD with acute exacerbation ?J44.1 - Chronic obstructive pulmonary disease with (acute) exacerbation (ICD-10) Asthma exacerbation with COPD (chronic obstructive pulmonary disease) ?J44.1 - Chronic obstructive pulmonary disease with (acute) exacerbation (ICD-10) ?J45.901 - Unspecified asthma with (acute) exacerbation (ICD-10) Family History Father Family history of CHF (congestive heart failure) Family history of hypertension Mother Family history of CHF (congestive heart failure) Family history of COPD (chronic obstructive pulmonary disease) Family history of hypertension Social History Within the past year, how often did you have a drink containing alcohol: monthly or less Within the past year, how many standard drinks containing alcohol did you have on a typical day: 1 or 2 Within the past year, how often did you have six or more drinks on one occasion: never Total score: 0 Score interpretation: A score less than 4 is consistent with normal alcohol consumption. Smoking status: Current every day smoker Non-prescribed substance use: cannabis (any form) Previous occupational history: retired Highest level of school completed/degree received: some college, no degree Are you now , , , , never or living with a partner: In a typical week, how many times do you talk on the telephone with family, friends, or neighbors: twice per week How often do you get together with friends or relatives: twice per week How often do you attend latter-day or baptist services: never Do you belong to any clubs or organizations such as latter-day groups unions, [employer] or athletic groups, or school groups: no Total score: 1 Score interpretation: A score of less than or equal to 1 indicates the most socially isolated. Little interest or pleasure in doing things: not at all Feeling down, depressed, or hopeless: nearly every day Feel stressed/tense/nervous/anxious/difficulty sleeping: rather much Do you think of yourself as: straight/heterosexual Gender Identity: male Exam Narrative Exam Narrative: Gen.: Awake, alert, in no distress Head: Normocephalic, atraumatic ENT: Moist mucous membranes Respiratory: No respiratory distress, lungs clear bilaterally Cardio: Regular rate and rhythm Gastrointestinal: Abdomen is soft, nondistended and nontender to palpation Extremities: Moves extremities equally Psych: Normal mood and affect Neuro: No focal neuro deficit Skin: Warm, dry, intact Constitutional Vital Signs, click to edit/add: Last Vital Signs Temp 98.3 F 04/12/23 19:08 Pulse 112 H 04/12/23 19:08 Resp 20 04/12/23 19:08 BP 137/92 H 04/12/23 21:30 Pulse Ox 100 04/12/23 19:08 O2 Del Method Nasal Cannula 04/12/23 19:08 O2 Flow Rate 4 04/12/23 19:08 Course Vital Signs Vital signs: Vital Signs Temperature 98.1 F 04/12/23 18:14 Pulse Rate 16 L 04/12/23 18:14 Respiratory Rate 16 04/12/23 18:14 Blood Pressure 160/118 H 04/12/23 18:14 Pulse Oximetry 98 04/12/23 18:14 Oxygen Delivery Method Nasal Cannula 04/12/23 18:14 Oxygen Delivery Flow Rate 3 04/12/23 18:14 Temperature 98.3 F 04/12/23 19:08 Pulse Rate 112 H 04/12/23 19:08 Respiratory Rate 20 04/12/23 19:08 Blood Pressure 137/92 H 04/12/23 21:30 Pulse Oximetry 100 04/12/23 19:08 Oxygen Delivery Method Nasal Cannula 04/12/23 19:08 Oxygen Delivery Flow Rate 4 04/12/23 19:08 Medical Decision Making MDM Narrative Medical decision making narrative: Patient treated with pain medication, IV fluids. He was found to have stable lab studies, no significant leukocytosis or bandemia. Kidney function is stable, lactic acid is normal. Urine specimen shows nitrate positive urinary tract infection and CT of the abdomen and pelvis with right-sided hydronephrosis consistent with previously passed stone although the radiologist cannot rule out distal obstruction/clot. At this time, clinically the patient has exam findings consistent with UTI, right flank pain and possible recently passed stone. He is resting more comfortably on reevaluation. He is treated with Rocephin in the ER and discharged home on Keflex, short course of analgesics and Zofran. Follow-up with PCP and return to the ER if symptoms change or worsen. He is resting comfortably, comfortable with discharge home to extended-care facility. Medical Records Medical records reviewed: Yes I reviewed the patient's medical records Lab Data Lab results reviewed: Yes I reviewed the patient's lab results Labs: Lab Results 04/12/23 04/12/23 04/12/23 Range/Units 18:25 19:27 19:35 WBC 11.2 H (4.0-11.0) 10^3/uL RBC 4.81 (4.70-6.10) 10^6/uL Hgb 15.4 (14.0-18.0) g/dL Hct 48.7 (42.0-54.0) % MCV 101.2 H (80.0-94.0) fL MCH 32.0 (25.9-34.0) pg MCHC 31.6 (29.9-35.2) g/dL RDW 12.6 (11.0-15.0) % Plt Count 231 (150-450) 10^3/uL MPV 12.0 (9.5-13.5) fL Neut % (Auto) 85.2 H (43.0-75.0) % Lymph % (Auto) 7.5 L (20.5-60.0) % [place] % (Auto) 2.0 (1.7-12.0) % Eos % (Auto) 0.0 L (0.9-7.0) % Baso % (Auto) 0.1 L (0.2-2.0) % Neut # (Auto) 9.5 H (1.4-6.5) 10^3/uL Lymph # (Auto) 0.8 L (1.2-3.8) 10^3/uL [place] # (Auto) 0.2 L (0.3-0.8) 10^3/uL Eos # (Auto) 0.0 (0.0-0.7) 10^3/uL Baso # (Auto) 0.0 (0.0-0.1) 10^3/uL Abs Immat Gran (auto) 0.58 H (0.00-0.03) 10^3/uL Imm/Tot Granulo (auto) 5.2 H (0.0-0.5) % PT 10.3 (9.0-11.6) sec INR 0.97 Sodium 139 (136-145) mmol/L Potassium 4.6 (3.5-5.1) mmol/L Chloride 99 (98-107) mmol/L Carbon Dioxide 35.3 H (21.0-32.0) mmol/L Anion Gap 9.3 BUN 18.0 (7.0-18.0) mg/dL Creatinine 0.95 (0.70-1.30) mg/dL Est GFR ( Amer) >60 (>=60) Est GFR (Non-Af Amer) >60 (>=60) BUN/Creatinine Ratio 18.9 Glucose 163 H (74-106) mg/dL Lactate 2.0 (0.4-2.0) mmol/L Calcium 9.4 (8.5-10.1) mg/dL Total Bilirubin 0.4 (0.2-1.0) mg/dL AST 43 H (15-37) U/L ALT 73 H (16-63) U/L Alkaline Phosphatase 159 H (46-116) U/L Total Protein 7.4 (6.4-8.2) g/dL Albumin 3.1 L (3.4-5.0) g/dL Globulin 4.3 g/dL Albumin/Globulin Ratio 0.7 Urine Color Dk. red (YELLOW) Urine Clarity Clear (CLEAR) Urine pH 8.5 (5.0-9.0) Ur Specific [place] 1.015 (1.005-1.025) Urine Protein 100 A (NEG/TRACE) mg/dL Urine Glucose (UA) Negative (NEGATIVE) mg/dL Urine Ketones Trace A (NEGATIVE) mg/dL Urine Occult Blood Large A (NEGATIVE) Urine Nitrite Positive A (NEGATIVE) Urine Bilirubin Negative (NEGATIVE) Urine Urobilinogen 2.0 A (0.2-1.0) EU/dL Ur Leukocyte Esterase Moderate A (NEGATIVE) Urine RBC >100 A (0-2) #/HPF Urine WBC >100 A (NONE SEEN) #/HPF Ur Squamous Epith Cells None seen (NONE/RARE) #/LPF Urine Crystals None seen (None Seen) #/HPF Urine Bacteria Moderate A (NONE SEEN) #/HPF Urine Casts None seen (NONE SEEN) #/LPF Urine Mucus None seen (NONE SEEN) Ur Culture Indicated? Yes Imaging Data CT scan - abdomen: Attestation: I have reviewed the pertinent imaging results. Radiologist's impression: Procedure: CT abdomen pelvis wo con EXAM: CT abdomen pelvis wo con; [id number] REASON FOR EXAM: Right flank pain TECHNIQUE: Helical CT images of the abdomen and pelvis were obtained without IV contrast. Multiplanar reformats were generated at the scanner. Dose reduction technique used: Automated exposure control and/or adjustment of the mA and/or kV according to patient size and/or use of iterative reconstruction technique. COMPARISON: None. FINDINGS: Note: Compared with a contrast-enhanced CT exam, noncontrast images are relatively insensitive for detection of solid organ and vascular abnormalities. Visualized Chest: Trace bilateral pleural effusions. Abdomen: Liver: Within normal limits. Gallbladder: Single stone in the neck of the gallbladder measuring 13 mm. No evidence of acute cholecystitis. Bile Ducts: No significant biliary ductal dilatation. Pancreas: No ductal dilatation or inflammatory changes. Spleen: No splenomegaly. Adrenals: No nodules. Kidneys: -Mild right-sided hydronephrosis and hydroureter without obstructing calcified stone. There is mild postobstructive right perinephric fluid. Mild hyperattenuation of the calyces in the upper pole of the right kidney. -No left-sided stones or hydronephrosis. Vascular: Fusiform infrarenal aortic aneurysm measuring 32 x 34 mm in AP and transverse dimensions respectively (series 6 image 55 series 3 image 56). Bilateral iliac artery stents are present. Lymph Nodes: No adenopathy. Abdominal Wall: Trace fat-containing left inguinal hernia and a small fat-containing periumbilical hernia. Pelvis: Small left posterior bladder diverticulum present. Mild diffuse bladder wall thickening and pericystic inflammatory changes. Bowel/Peritoneal Cavity/Mesentery: -Minimal colonic diverticulosis without evidence of acute diverticulitis. -Mildly above-average colonic stool burden. -No bowel obstruction or significant ileus. -No acute inflammatory changes. -No free air or free fluid. Musculoskeletal: No acute fracture or suspicious osseous lesion. Chronic bilateral pars defects at L5 resulting in grade 1 anterolisthesis of L5 on S1. IMPRESSION: 1. Mild right-sided hydronephrosis and hydroureter without evidence of obstructing stone. Differential includes recently passed stone versus noncalcified distal obstruction such as from clot or papillary necrosis. 2. Infrarenal aortic aneurysm measuring 32 x 34 mm. 3. Cholelithiasis without evidence of acute cholecystitis. Electronically authenticated by: FINA FINN Date: 04/12/2023 19:46 Discharge Plan Discharge Chief Complaint: Abdominal Pain Clinical Impression: Right flank pain, Acute UTI Patient Disposition: Home, Self-Care Time of Disposition Decision: 20:28 Condition: Good Prescriptions / Home Meds: New hydrocodone-acetaminophen 5-325 mg tablet 1 tab PO Q6H PRN (Reason: pain) 3 Days Qty: 12 0RF Rx Instructions: DX: R10.9 cephalexin 500 mg capsule 500 mg PO Q8H 10 Days Qty: 30 0RF ondansetron 4 mg tablet,disintegrating 4 mg PO Q6H PRN (Reason: nausea and vomiting) Qty: 12 0RF cephalexin 500 mg capsule 500 mg PO Q8H 10 Days Qty: 30 0RF ondansetron 4 mg tablet,disintegrating 4 mg PO Q6H PRN (Reason: nausea and vomiting) Qty: 12 0RF No Action levofloxacin 750 mg tablet 750 mg PO DAILY 7 Days Qty: 7 0RF budesonide 0.5 mg/2 mL suspension for nebulization 0.5 mg inhalation BID PRN (Reason: shortness of breath) Qty: 60 0RF buspirone 10 mg tablet 10 mg PO DAILY oxymetazoline [12 Hour Nasal Relief [place]] 0.05 % spray,non-aerosol 2 spray intranasal Q12H fluticasone propionate [24 Hour Allergy Relief] 50 mcg/actuation spray,suspension 2 spray intranasal DAILY Rx Instructions: administer into each nostril prednisone 20 mg tablet 20 mg PO DAILY Qty: 1 0RF Rx Instructions: 3 PO daily x 3 days, then 2 PO daily x 3 days, then 1 PO daily alprazolam 0.5 mg tablet 0.5 mg PO TID PRN (Reason: anxiety) 5 Days Qty: 15 0RF albuterol sulfate 2.5 mg /3 mL (0.083 %) solution for nebulization 2.5 mg inhalation Q6H PRN (Reason: shortness of breath or wheezing) Bevespi [employer] 9-4.8 mcg HFA aerosol inhaler 2 inh INHALATION Q12H aspirin 81 mg tablet,chewable 81 mg PO DAILY cholecalciferol (vitamin D3) 1,250 mcg (50,000 unit) tablet 50,000 unit PO QWEEK ferrous sulfate [Keesha-Time] 325 mg (65 mg iron) tablet 325 mg PO DAILY omega 3-xls-ysh-fish oil [Fish Oil] 1,000 mg (120 mg-180 mg) capsule 1 cap PO DAILY Incruse Ellipta 62.5 mcg/actuation blister with device 1 inh inhalation Q24H metformin 500 mg tablet extended release 24 hr 500 mg PO DAILY oxymetazoline 0.05 % spray,non-aerosol 2 spray intranasal BID prednisolone sodium phosphate 10 mg tablet,disintegrating 20 mg PO DAILY acetaminophen [Non-Aspirin] 325 mg tablet 650 mg PO Q6H PRN (Reason: fever or pain) Instructions: Urinary Tract Infection in Men (ED), Flank Pain (ED) Stand Alone Forms: Portal Instructions Referrals: Shaikh Hook MD [Primary Care Provider] - 1 week Discharge Date/Time: 04/12/23 22:00
[2023-04-12] MEDS: KETOROLAC TROMETHAMINE 30 MG/ML VIAL 15 MG IVP (18:35)
[2023-04-12] MEDS: HYDROMORPHONE HCL 1 MG/ML CARTRIDGE IVP (18:36)
[2023-04-12] MEDS: ONDANSETRON PF 4 MG/2 ML VIAL IV (18:36)
[2023-04-12] MEDS: 0.9 % SODIUM CHLORIDE 1,000 ML 999 ML IV (18:37)
[2023-04-12 19:08] VITALS: BP 178/98; PULSE 112; RESP 20; TEMP 36.8; O2SAT 100
[2023-04-12 19:14] LABS: Basophils Percent Auto 0.1 % (0.2-2.0); Hematocrit 48.7 % (42.0-54.0); Hemoglobin 15.4 g/dL (14.0-18.0); Immature Granulocytes Abs Auto 0.58 10^3/uL (0.00-0.03); Immature Granulocytes Pct Auto 5.2 % (0.0-0.5); Lymphocytes Absolute Auto 0.8 10^3/uL (1.2-3.8); Lymphocytes Percent Auto 7.5 % (20.5-60.0); Mean Corpuscular HGB Conc 31.6 g/dL (29.9-35.2); Mean Corpuscular Volume 101.2 fL (80.0-94.0); Monocytes Absolute Auto 0.2 10^3/uL (0.3-0.8); Neutrophils Absolute Auto 9.5 10^3/uL (1.4-6.5); Neutrophils Percent Auto 85.2 % (43.0-75.0); Platelet Count 231 10^3/uL (150-450); Red Blood Count 4.81 10^6/uL (4.70-6.10); Red Cell Distribution Width 12.6 % (11.0-15.0); White Blood Count 11.2 10^3/uL (4.0-11.0)
[2023-04-12 19:30] LABS: INR 0.97; Prothrombin Time 10.3 sec (9.0-11.6)
[2023-04-12 19:41] LABS: Alanine Aminotransferase 73 U/L (16-63); Albumin Globulin Ratio 0.7; Albumin Level 3.1 g/dL (3.4-5.0); Alkaline Phosphatase 159 U/L (46-116); Anion Gap 9.3; Aspartate Amino Transferase 43 U/L (15-37); BUN Creatinine Ratio 18.9; Bilirubin Total 0.4 mg/dL (0.2-1.0); Calcium 9.4 mg/dL (8.5-10.1); Carbon Dioxide 35.3 mmol/L (21.0-32.0); Chloride 99 mmol/L (98-107); Estimated GFR (African America >60 (>=60); Estimated GFR (Non-African Ame >60 (>=60); Globulin 4.3 g/dL; Glucose 163 mg/dL (74-106); Potassium 4.6 mmol/L (3.5-5.1); Sodium 139 mmol/L (136-145); Total Protein 7.4 g/dL (6.4-8.2)
[2023-04-12 19:45] LABS: Bilirubin Urine NEGATIVE (NEGATIVE); Blood Urine LARGE (NEGATIVE); Clarity Urine CLEAR (CLEAR); Color Urine DK. RED (YELLOW); Glucose Urine UA NEGATIVE (NEGATIVE); Ketones Urine TRACE mg/dL (NEGATIVE); Leukocyte Esterase Urine MODERATE (NEGATIVE); Nitrite Urine POSITIVE (NEGATIVE); Protein Urine 100 mg/dL (NEG/TRACE); Specific Gravity Urine 1.015 (1.005-1.025); pH Urine 8.5 (5.0-9.0)
[2023-04-12 19:50] LABS: Urine Microscopic Indicated YES
[2023-04-12 20:08] LABS: Bacteria Urine MODERATE #/HPF (NONE SEEN); Mucus Urine NONE SEEN (NONE SEEN); RBC Urine >100 #/HPF (0-2); WBC Urine >100 #/HPF (NONE SEEN)
[2023-04-12 20:09] LABS: Cast Seen? NONE SEEN #/LPF (NONE SEEN); Crystals Seen? None Seen #/HPF (None Seen); Squamous Epithelial Cell Urine NONE SEEN #/LPF (NONE/RARE); Urine Culture Indicated YES
[2023-04-12] MEDS: CEFTRIAXONE 1,000 MG in 0.9 % SODIUM CHLORIDE 50 ML 100 MG IV (20:35)
[2023-04-12 21:30] VITALS: BP 137/92
== END 2023-04-12 22:00 | disposition home or self-care (01) ==
PROVIDERS: Physician Assistant; Emergency Provider Emergency Medicine; PCP Internal Medicine
DX: N39.0 Urinary tract infection, site not specified (principal); R10.9 Unspecified abdominal pain; F41.9 Anxiety disorder, unspecified; F17.210 Nicotine dependence, cigarettes, uncomplicated; J96.11 Chronic respiratory failure with hypoxia; E88.01 Alpha-1-antitrypsin deficiency; F12.90 Cannabis use, unspecified, uncomplicated; Z79.899 Other long term (current) drug therapy; Z79.82 Long term (current) use of aspirin; Z79.84 Long term (current) use of oral hypoglycemic drugs; Z86.16 Personal history of COVID-19
CPT/HCPCS: 36415; 74176; 80053; 81001; 83605; 85025; 85610; 87086; 87150; 87186; 96365; 96375; 99284; J1170

== ENCOUNTER 2023-07-30 13:29 | Outpatient (OUT) | payer MEDICARE, MEDICAID, SELFPAY ==
--- NOTE | 2023-07-30 13:32 | MR_ITS ---
The [address] [address] Patient Name: JAMSHID VARELA MRN: [id number] date: 1955 Sex: M Assigned Patient Location: MRI Current Patient Location: Accession/Order Number: [id number] Exam Date: 07/30/2023 14:30 Report Date: 07/31/2023 06:39 At the request of: NON-STAFF PHYSICIAN Procedure: MR lumbar spine wo con EXAMINATION: MR lumbar spine wo con HISTORY: Wedge Compression Fracture Lumbar Vertebra S32.010A ; chronic lumbar pain COMPARISON: CT abdomen pelvis 04/12/2023 TECHNIQUE: A variety of imaging planes and parameters were utilized for visualization of suspected pathology. FINDINGS: For the purposes of numbering, sagittal T2 image # 8 extends from the T11 vertebral body superiorly to the S2 level inferiorly. PARASPINAL AREA: Normal with no visible mass. BONES: Mild superior endplate compression fractures of L1 and L3 with mild edema within the adjacent trabecula. CORD/CAUDA EQUINA: Mild fusiform dilation of the distal abdominal aorta, 3.2 cm. DISC LEVELS: 12-L1: Early degenerative disc disease is present without focal protrusion or neural impingement. L1-L2: No significant disc/facet abnormality, spinal stenosis, or foraminal stenosis. L2-L3: Minimal central canal and bilateral foramen narrowing secondary to mild diffuse disc bulging. L3-L4: Early degenerative disc disease is present without focal protrusion or neural impingement. L4-L5: No significant disc/facet abnormality, spinal stenosis, or foraminal stenosis. L5-S1: Early degenerative disc disease is present without focal protrusion or neural impingement. MR/MR lumbar spine wo con IMPRESSION: 1. Subacute mild compression fractures (10-15% loss of height) involving superior endplates of L1 and L3 vertebral bodies; new since 04/12/2023. Electronically authenticated by: MARIBETH CEDILLO Date: 07/31/2023 06:39
--- OUTSIDE RECORDS SUMMARY | 2023-07-30 13:41 | XMS_ITS | CCD ---
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 on above: Testing for legal pu rposes should be confirmed by another method. To request confirmation of test result, please call the lab within 7 days of sample submission. [facility] Hemoglobin A1Con 06-26-2022 Glucose [Mass/Vol] 134 mg/dL Normal [facility] Comment on above: Result Comment: The ADA and AACC recommend providing the estimated average glucose result to permit better patient understanding of their HBA1c result. Performed By: #### E RTPF, FT4, GLYHGB, ALB, TSH, B12, VD25, ECENZ #### [facility] [address] [place] [address] [phone] [employer] Trimmer: Abelardo Castaneda MD HbA1c (Bld) [Mass fraction] 6.3 % High 4.0-6.0 [facility] Comment on above: Performed By: #### E RTPF, FT4, GLYHGB, ALB, TSH, B12, VD25, ECENZ #### [facility] [address] [place] [address] [phone] [employer] Trimmer: Abelardo Castaneda MD Average glucose Estimated from glycated hemoglobin (Bld) [Mass/Vol] 134 mg/dL [facility] Comment on above: The ADA and AACC rec ommend providing the estimated average glucose result to permit better patient understanding of their HBA1c result. HbA1c (Bld) [Mass fraction] 6.3 % High 4.0 - 6.0 % [facility] Interpretation and review of laboratory results Abnormal [facility] No Panel Informationon 06-26 Interpretation and review of laboratory results Abnormal [facility] Radiology Study observation (narrative) [facility] Work Phone: T4, Freeon 06-26-2022 Free T4 [Mass/Vol] 1.38 ng/dL 0.93 - 1. 70 ng/dL [facility] TROP/MYOGLOBINon 06-26-2022 Myoglobin [Mass/Vol] 27 ng/mL Low 28 - 72 ng/mL [facility] Troponin I.cardiac DL <= 0.01 ng/mL [Mass/Vol] 16 ng/L 0 - 22 ng/L [facility] Comment on above: High Sensitivity Tro ponin values cannot be compared with other Troponin methodologies. TSHon 06-26-2022 TSH Qn 2.95 m[IU]/L [facility] TYPE AND SCREENon 06-26-2022 ABO/Rh Positive [facility] Arm Band Number BE [id number] [facility] Expiration Date 06/29/2022,2359 [facility] Thyroid Stim. Horm.on 2022 Thyroid Stim. Horm. 2.95 uIU/mL Normal 0.30-5.00 [facility] Comment on above: Performed By: #### E RTPF, FT4, GLYHGB, ALB, TSH, B12, VD25, ECENZ #### [employer] [address] [place] [id number] [employer] Trimmer: Abelardo Castaneda MD Thyroxine, Freeon 06-26-2022 Thyroxine, Free 1.38 ng/dL Normal 0.93-1.70 [facility] Comment on above: Performed By: #### E RTPF, FT4, GLYHGB, ALB, TSH, B12, VD25, ECENZ #### [employer] [facility] [place] [address] [employer] Bunch Trimmer: Abelardo Castaneda MD Trauma Panelon 06-26-2022 Anion gap [Moles/Vol] 11 mmol/L 9 - 17 mmol/L [facility] aPTT Coag (Bld) [Time] 22.1 s [facility] Comment on above: IV Heparin Therapy Range: 48.6-77.8 Blood Bank Specimen BILL FOR SERVICES PERFORMED [facility] Carboxyhemoglobin 6.3 % High 0 - 5 % [facility] Comment on above: Reference Range: Non-Smokers 0-2% Average Smoker 2-4% Heavy Smoker <10% Chloride [Moles/Vol] 100 mmol/L 98 - 10 7 mmol/L [facility] CO2 [Moles/Vol] 28 mmol/L 20 - 31 mmol/L [facility] Creatinine [Mass/Vol] 0.74 mg/dL 0.70 - 1.20 mg/dL [facility] Ethanol [Mass/Vol] mg/dL NINF - 10 mg/dL [facility] Ethanol percent <0.010 NINF - 0.010 % [facility] [employer] FIO2 Unknown [facility] GFR/1.73 sq M.predicted MDRD (S/P/Bld) [Vol rate/Area] - PINF [facility] Comment on above: These results are not intended for use in patients <18 years of age. eGFR results are calculated without a race factor using the 2020 CKD-EPI equation. Careful clinical correlation is recommended, particularly when comparing to results calculated using previous equations. The CKD-EPI equation is less accurate in patients with extremes of muscle mass, extra-renal metabolism of creatine, excessive creatine ingestion, or following therapy that affects renal tubular secretion. Glucose [Mass/Vol] 145 mg/dL High 70 - 99 mg/dL [facility] hCG Qual PT IS MALE [facility] HCO3 (Bld) [Moles/Vol] 30.9 mmol/L High 24 - 30 mmol/L [facility] Hematocrit (Bld) [Volume fraction] 49.4 % 40.7 - 50.3 % [facility] Hemoglobin (Bld) [Mass/Vol] 15.4 g/dL 13.0 - 17.0 g/dL [facility] INR Coag (PPP) [Relative time] 1.0 {INR} [facility] Comment on above: Therapeutic Range: Moderate Anticoagulant Intensity: INR = 2.0-3.0 High Anticoagulant Intensity: INR = 2.5-3.5 Interpretation and review of laboratory results Abnormal [facility] MCH (RBC) [Entitic mass] 31.0 pg 25.2 - 33.5 pg [facility] MCHC (RBC) [Mass/Vol] 31.2 g/dL 28.4 - 34.8 g/dL [facility] MCV (RBC) [Entitic vol] 99.6 fL 82.6 - 102.9 fL [facility] NRBC Automated 0.0 0.0 per 100 WBC [facility] Oxygen saturation in Blood 67.6 % 60.0 - 85.0 % [facility] pCO2, Colin 50.3 [facility] pH, Colin 7.405 7.320 - 7.420 [facility] Platelet distribution width (Bld) [Ratio] 13.4 % 11.8 - 14.4 % [facility] Platelet mean volume (Bld) [Entitic vol] 11.4 fL 8.1 - 13.5 fL [facility] Platelets (Bld) [#/Vol] 201 10*3/uL [facility] pO2, Colin 32.4 [facility] Positive Base Excess, Colin 5.2 mmol/L High 0.0 - 2.0 mmol/L [facility] Potassium [Moles/Vol] 4.8 mmol/L 3.7 - 5.3 mmol/L [facility] PT Coag (PPP) [Time] 10.8 s [facility] Pt Temp 37.0 [facility] RBC (Bld) [#/Vol] 4.96 10*6/uL 4.21 - 5.7 7 m/uL [facility] Sodium [Moles/Vol] 139 mmol/L 135 - 144 mmol/L [facility] Urea nitrogen [Mass/Vol] 19 mg/dL 8 - 23 mg/dL [facility] WBC (Bld) [#/Vol] 9.6 10*3/uL [facility] Trauma Profileon 06-26-2022 Potassium [Moles/Vol] 4.8 mmol/L Normal 3.7-5.3 [facility] Comment on above: Performed By: #### E RTPF, FT4, GLYHGB, ALB, TSH, B12, VD25, ECENZ #### [address] [address] [employer] Trimmer: Abelardo Castaneda MD Anion gap [Moles/Vol] 11 mmol/L Normal 9-17 [facility] Comment on above: Performed By: #### E RTPF, FT4, GLYHGB, ALB, TSH, B12, VD25, ECENZ #### [address] [address] [employer] Trimmer: Abelardo Castaneda MD Chloride [Moles/Vol] 100 mmol/L Normal 98-107 [facility] Comment on above: Performed By: #### E RTPF, FT4, GLYHGB, ALB, TSH, B12, VD25, ECENZ #### [address] [address] [employer] B[employer] Trimmer: Abelardo Castaneda MD CO2 [Moles/Vol] 28 mmol/L Normal 20-31 [facility] Comment on above: Performed By: #### E RTPF, FT4, GLYHGB, ALB, TSH, B12, VD25, ECENZ #### [address] [address] [employer] Trimmer: Abelardo Castaneda MD Creatinine [Mass/Vol] 0.74 mg/dL Normal 0.70-1.20 [facility] Comment on above: Performed By: #### E RTPF, FT4, GLYHGB, ALB, TSH, B12, VD25, ECENZ #### [address] [address] [employer]: Abelardo Castaneda MD GFR/1.73 sq M.predicted among non-blacks MDRD (S/P/Bld) [Vol rate/Area] mL/min/{1.73_m2} Normal >60 [facility] Comment on above: Result Comment: These results are not intended for use in patients <18 years of age. eGFR results are calculated without a race factor using the 2020 CKD-EPI equation. Careful clinical correlation is recommended, particularly when comparing to results calculated using previous equations. The CKD-EPI equation is less accurate in patients with extremes of muscle mass, extra-renal metabolism of creatine, excessive creatine ingestion, or following therapy that affects renal tubular secretion. Performed By: #### E RTPF, FT4, GLYHGB, ALB, TSH, B12, VD25, ECENZ #### [address] [address] [employer] Tr[employer]: Abelardo Castaneda MD Glucose [Mass/Vol] 145 mg/dL High 70-99 [facility] Comment on above: Performed By: #### E RTPF, FT4, GLYHGB, ALB, TSH, B12, VD25, ECENZ #### [address] [address] [employer] Trimmer: Abelardo Castaneda MD Sodium [Moles/Vol] 139 mmol/L Normal 135-144 [facility] Comment on above: Performed By: #### E RTPF, FT4, GLYHGB, ALB, TSH, B12, VD25, ECENZ #### [address] [address] [employer] Trimmer: Abelardo Castaneda MD Urea nitrogen [Mass/Vol] 19 mg/dL Normal 8-23 [facility] Comment on above: Performed By: #### E RTPF, FT4, GLYHGB, ALB, TSH, B12, VD25, ECENZ #### [address] [address] [employer] Trimmer: Abelardo Castaneda MD Ethanol [Mass/Vol] mg/dL Normal <10 [facility] Comment on above: Performed By: #### E RTPF, FT4, GLYHGB, ALB, TSH, B12, VD25, ECENZ #### [address] [address] [employer] Trimmer: Abelardo Castaneda MD Ethanol percent <0.010 Normal <0.010 [facility] Comment on above: Performed By: #### E RTPF, FT4, GLYHGB, ALB, TSH, B12, VD25, ECENZ #### [address] [address] [employer] Trimmer: Abelardo Castaneda MD aPTT Coag (Bld) [Time] 22.1 s Normal 20.5-30.5 [facility] Comment on above: Result Comment: IV Heparin Therapy Range: 48.6-77.8 Performed By: #### E RTPF, FT4, GLYHGB, ALB, TSH, B12, VD25, ECENZ #### [place] [address] [employer] Trimmer: Abelardo Castaneda MD INR Coag (PPP) [Relative time] 1.0 {INR} Normal [facility] Comment on above: Result Comment: Therapeutic Range: Moderate Anticoagulant Intensity: INR = 2.0-3.0 High Anticoagulant Intensity: INR = 2.5-3.5 Performed By: #### E RTPF, FT4, GLYHGB, ALB, TSH, B12, VD25, ECENZ #### [place] [address] [employer] Trimmer: Abelardo Castaneda MD PT Coag (PPP) [Time] 10.8 s Normal 9.1-12.3 [facility] Comment on above: Performed By: #### E RTPF, FT4, GLYHGB, ALB, TSH, B12, VD25, ECENZ #### [place] [address] [employer] Trimmer: Abelardo Castaneda MD Body Temp. 37.0 Normal [facility] Comment on above: Performed By: #### E RTPF, FT4, GLYHGB, ALB, TSH, B12, VD25, ECENZ #### [place] [address] [employer] Trimmer: Abelardo Castaneda MD Carboxy Hgb 6.3 % High 0-5 [facility] Comment on above: Result Comment: Reference Range: Non-Smokers 0-2% Average Smoker 2-4% Heavy Smoker <10% Performed By: #### E RTPF, FT4, GLYHGB, ALB, TSH, B12, VD25, ECENZ #### [address] [address] [employer] Bunch Trimmer: Abelardo Castaneda MD FIO2 Unknown Normal [facility] Comment on above: Performed By: #### E RTPF, FT4, GLYHGB, ALB, TSH, B12, VD25, ECENZ #### [address] [address] [employer] Trimmer: Abelardo Castaneda MD HCO3 (Bld) [Moles/Vol] 30.9 mmol/L High 24-30 [facility] Comment on above: Performed By: #### E RTPF, FT4, GLYHGB, ALB, TSH, B12, VD25, ECENZ #### [address] [address] [employer] Trimmer: Abelardo Castaneda MD Oxygen saturation in Blood 67.6 % Normal 60.0-85.0 [facility] Comment on above: Performed By: #### E RTPF, FT4, GLYHGB, ALB, TSH, B12, VD25, ECENZ #### [address] [address] [employer] Trimmer: Abelardo Castaneda MD pCO2 50.3 mm Hg Normal 39-55 [facility] Comment on above: Performed By: #### E RTPF, FT4, GLYHGB, ALB, TSH, B12, VD25, ECENZ #### [address] [address] [employer] Trimmer: Abelardo Castaneda MD pH (Bld) 7.405 [pH] Normal 7.320-7.420 [facility] Comment on above: Performed By: #### E RTPF, FT4, GLYHGB, ALB, TSH, B12, VD25, ECENZ #### [address] [address] [employer] Trimmer: Abelardo Castaneda MD pO2 32.4 mm Hg Normal 30-50 [facility] Comment on above: Performed By: #### E RTPF, FT4, GLYHGB, ALB, TSH, B12, VD25, ECENZ #### [address] [address] [employer] Trimmer: Abelardo Castaneda MD Positive Base Excess 5.2 mmol/L High 0.0-2.0 [facility] Comment on above: Performed By: #### E RTPF, FT4, GLYHGB, ALB, TSH, B12, VD25, ECENZ #### [address] [address] [employer] Trimmer: Abelardo Castaneda MD Erythrocyte distribution width (RBC) [Ratio] 13.4 % Normal 11.8-14.4 [facility] Comment on above: Performed By: #### E RTPF, FT4, GLYHGB, ALB, TSH, B12, VD25, ECENZ #### [address] [address] [employer] Trimmer: Abelardo Castaneda MD Hematocrit (Bld) [Volume fraction] 49.4 % Normal 40.7-50.3 [facility] Comment on above: Performed By: #### E RTPF, FT4, GLYHGB, ALB, TSH, B12, VD25, ECENZ #### [facility] [address] [place] [address] [employer] Trimmer: Abelardo Castaneda MD Hemoglobin (Bld) [Mass/Vol] 15.4 g/dL Normal 13.0-17.0 [facility] Comment on above: Performed By: #### E RTPF, FT4, GLYHGB, ALB, TSH, B12, VD25, ECENZ #### [place] [address] [employer] Trimmer: Abelardo Castaneda MD MCH (RBC) [Entitic mass] 31.0 pg Normal 25.2-33.5 [facility] Comment on above: Performed By: #### E RTPF, FT4, GLYHGB, ALB, TSH, B12, VD25, ECENZ #### [place] [address] [employer] Trimmer: Abelardo Castaneda MD MCHC (RBC) [Mass/Vol] 31.2 g/dL Normal 28.4-34.8 [facility] Comment on above: Performed By: #### E RTPF, FT4, GLYHGB, ALB, TSH, B12, VD25, ECENZ #### [place] [address] [employer] Trimmer: Abelardo Castaneda MD MCV (RBC) [Entitic vol] 99.6 fL Normal 82.6-102.9 [facility] Comment on above: Performed By: #### E RTPF, FT4, GLYHGB, ALB, TSH, B12, VD25, ECENZ #### [place] [id number] [employer]: Abelardo Castaneda MD NRBC Automated 0.0 per 100 WBC Normal 0.0 [facility] Comment on above: Performed By: #### E RTPF, FT4, GLYHGB, ALB, TSH, B12, VD25, ECENZ #### [place] [id number] [employer] Trimmer: Abelardo Castaneda MD Platelet mean volume (Bld) [Entitic vol] 11.4 fL Normal 8.1-13.5 [facility] Comment on above: Performed By: #### E RTPF, FT4, GLYHGB, ALB, TSH, B12, VD25, ECENZ #### [address] [address] [employer]: Abelardo Castaneda MD Platelets (Bld) [#/Vol] 201 10*3/uL Normal 138-453 [facility] Comment on above: Performed By: #### E RTPF, FT4, GLYHGB, ALB, TSH, B12, VD25, ECENZ #### [address] [address] [employer] Trimmer: Abelardo Castaneda MD RBC (Bld) [#/Vol] 4.96 10*6/uL Normal 4.21-5.77 [facility] Comment on above: Performed By: #### E RTPF, FT4, GLYHGB, ALB, TSH, B12, VD25, ECENZ #### [address] [address] [employer]: Abelardo Castaneda MD WBC (Bld) [#/Vol] 9.6 10*3/uL Normal 3.5-11.3 [facility] Comment on above: Performed By: #### E RTPF, FT4, GLYHGB, ALB, TSH, B12, VD25, ECENZ #### [address] [address] [employer]: Abelardo Castaneda MD Blood Bank BILL FOR SERVICES PERFORMED Normal [facility] Comment on above: Performed By: #### E RTPF, FT4, GLYHGB, ALB, TSH, B12, VD25, ECENZ #### [address] [address] [employer]: Abelardo Castaneda MD Trop/Myoglobinon 06-26-2022 Myoglobin [Mass/Vol] 27 ng/mL Low 28-72 [facility] Comment on above: Performed By: #### E RTPF, FT4, GLYHGB, ALB, TSH, B12, VD25, ECENZ #### [facility] [address] [place] [address] [phone] [employer] Trimmer: Abelardo Castaneda MD Troponin, High Sens 16 ng/L Normal 0-22 [facility] Comment on above: Result Comment: High Sensitivity Troponin values cannot be compared with other Troponin methodologies. Performed By: #### E RTPF, FT4, GLYHGB, ALB, TSH, B12, VD25, ECENZ #### [facility] [address] [place] [address] [phone] [employer] Trimmer: Abelardo Castaneda MD Type + Screenon 06-26-2022 Type + Screen Sample Expiration 06/29/2022,2359 Arm Band Number BE [id number] ABO/Rh(D) O POSITIVE Antibody Screen NEGATIVE Normal [facility] Comment on above: Performed By: #### T YS #### [facility] [address] [place] [address] [phone] [employer]: Abelardo Castaneda MD Vitamin B12on 06-26-2022 Cobalamin (Vitamin B12) [Mass/Vol] 531 pg/mL Normal 232-1245 [facility] Comment on above: Performed By: #### E RTPF, FT4, GLYHGB, ALB, TSH, B12, VD25, ECENZ #### [facility] [address] [place] [address] [employer]: Abelardo Castaneda MD Cobalamin (Vitamin B12) [Mass/Vol] 531 pg/mL 232 - 1245 pg/mL [facility] [employer] [facility] [employer] Vitamin D 25 Hydroxyon 06-26 25-hydroxyvitamin D3 [Mass/Vol] 14.5 ng/mL Low 29.9 - PINF ng/mL [facility] [employer] Comment on above: Reference Range: Vitamin D status Range Deficiency <20 ng/mL Mild Deficiency 20-30 ng/mL Sufficiency 30-100 ng/mL Toxicity >100 ng/mL Vitamin D 25 OHon 02-24-2023 Vitamin D 25 OH 14.5 ng/mL Low >29.9 [facility] Comment on above: Result Comment: Reference Range: Vitamin D status Range Deficiency <20 ng/mL Mild Deficiency 20-30 ng/mL Sufficiency 30-100 ng/mL Toxicity >100 ng/mL Performed By: #### E RTPF, FT4, GLYHGB, ALB, TSH, B12, VD25, ECENZ #### [facility] [place] [phone] [employer]: Abelardo Castaneda MD XR CHEST PORTABLEon 06-26-19 XR CHEST PORTABLE EXAMINATION: ONE XRAY VIEW OF THE CHEST 06/26/2022 10:26 am COMPARISON: None. HISTORY: ORDERING SYSTEM PROVIDED HISTORY: burn, copd TECHNOLOGIST PROVIDED HISTORY: burn, copd FINDINGS: The lungs are hyperinflated without acute focal process. There is no effusion or pneumothorax. The cardiomediastinal silhouette is without acute process. The osseous structures are without acute process. IMPRESSION: No acute process. Interpreted by: Boris Bocanegra MD Signed by: Boris Bocanegra MD 06/26/22 Final result Normal [facility] No acute process. [facility] EXAMINATION: ONE XRAY VIEW OF THE CHEST 06/26/2022 10:26 am COMPARISON: None. HISTORY: ORDERING SYSTEM PROVIDED HISTORY: burn, copd TECHNOLOGIST PROVIDED HISTORY: burn, copd FINDINGS: The lungs are hyperinflated without acute focal process. There is no effusion or pneumothorax. The cardiomediastinal silhouette is without acute process. The osseous structures are without acute process. [facility] Boris Bocanegra MD - 06/26/2022 EXAMINATION: ONE XRAY VIEW OF THE CHEST 06/26/2022 10:26 am COMPARISON: None. HISTORY: ORDERING SYSTEM PROVIDED HISTORY: burn, copd TECHNOLOGIST PROVIDED HISTORY: burn, copd FINDINGS: The lungs are hyperinflated without acute focal process. There is no effusion or pneumothorax. The cardiomediastinal silhouette is without acute process. The osseous structures are without acute process. IMPRESSION: No acute process. [facility] [employer] Work Phone: XR CHEST PORTABLEOrdered By: Boris Bocanegra on 06-26-2022 [employer] Phone: XR HAND LEFT (MIN 3 VIEWS)on 06-26-2022 XR HAND LEFT (MIN 3 VIEWS) EXAMINATION: THREE XRAY VIEWS OF THE LEFT HAND 06/26/2022 10:26 am COMPARISON: None. HISTORY: ORDERING SYSTEM PROVIDED HISTORY: bruising, fell TECHNOLOGIST PROVIDED HISTORY: bruising, fell FINDINGS: Chronic deformity of the 4th metacarpal is seen. Sharp flexion deformity at the proximal interphalangeal joint of the ring finger noted. No acute fracture is identified. No radiopaque foreign bodies are detected. IMPRESSION: No acute abnormality identified. Chronic appearing deformities of the 4th ray. Interpreted by: Stan Ruiz MD Signed by: Stan Ruiz MD 06/26/22 Final result Normal [facility] No acute abnormality identified. Chronic appearing deformities of the 4th ray. [facility] EXAMINATION: THREE XRAY VIEWS OF THE LEFT HAND 06/26/2022 10:26 am COMPARISON: None. HISTORY: ORDERING SYSTEM PROVIDED HISTORY: bruising, fell TECHNOLOGIST PROVIDED HISTORY: bruising, fell FINDINGS: Chronic deformity of the 4th metacarpal is seen. Sharp flexion deformity at the proximal interphalangeal joint of the ring finger noted. No acute fracture is identified. No radiopaque foreign bodies are detected. [facility] Stan Ruiz MD - 06/26/2022 EXAMINATION: THREE XRAY VIEWS OF THE LEFT HAND 06/26/2022 10:26 am COMPARISON: None. HISTORY: ORDERING SYSTEM PROVIDED HISTORY: bruising, fell TECHNOLOGIST PROVIDED HISTORY: bruising, fell FINDINGS: Chronic deformity of the 4th metacarpal is seen. Sharp flexion deformity at the proximal interphalangeal joint of the ring finger noted. No acute fracture is identified. No radiopaque foreign bodies are detected. IMPRESSION: No acute abnormality identified. Chronic appearing deformities of the 4th ray. [employer] Phone: XR HAND LEFT (MIN 3 VIEWS)Or dered By: Stan Ruiz on 06-26-2022 [employer] Phone: CNCOon 06-23-2022 CNCO Letter Text Normal [facility] Basic metabolic 2000 panelon 06-21-2022 Anion gap [Moles/Vol] 6 mmol/L Low 9-18 [facility] Comment on above: Order Comment: Speci men Type: BLOOD SPECIMEN Ordering Facility: [facility] Address: [address] [address] Performed By: #### 3 4528-0, 99785-3 #### [facility] CLIA [id number] [address] [place] [address] [place] Calcium [Mass/Vol] 8.5 mg/dL Normal 8.5-10.2 [facility] Comment on above: Order Comment: Speci men Type: BLOOD SPECIMEN Ordering Facility: [facility] Address: [address] [place] [address] Performed By: #### 3 4528-0, 94938-6 #### [facility] CLIA [id number] [address] [place] [address] [place] Chloride [Moles/Vol] 104 mmol/L Normal 97-105 [facility] Comment on above: Order Comment: Speci men Type: BLOOD SPECIMEN Ordering Facility: [facility] Address: [address] [place] [address] Performed By: #### 3 4528-0, 03016-3 #### [facility] CLIA [id number] [address] [place] [address] [place] CO2 [Moles/Vol] 31 mmol/L High 22-30 [facility] Comment on above: Order Comment: Speci men Type: BLOOD SPECIMEN Ordering Facility: [facility] Address: [address] [place], [place] [address] Performed By: #### 3 4528-0, 07773-2 #### [facility] CLIA [id number] [address] [place] [address] [place] Creatinine [Mass/Vol] 0.76 mg/dL Normal 0.73-1.22 [facility] Comment on above: Order Comment: Leighann suazo Type: BLOOD SPECIMEN Ordering Facility: [facility] Address: [address] [address] Performed By: #### 3 4528-0, 40415-0 #### [facility] CLIA [id number] [address] [place] [address] [place] ESTIMATED GLOMERULAR FILTRATION RATE 99 mL/min/1.73m??? Normal >=60 [facility] Comment on above: Order Comment: Leighann suazo Type: BLOOD SPECIMEN Ordering Facility: [facility] Address: [address] [address] Result Comment: [place] mated Glomerular Filtration Rate (eGFR) is calculated using the 2020 CKD-EPI creatinine equation. This equation utilizes serum creatinine, sex, and age as parameters. The creatinine assay has traceable calibration to isotope dilution-mass spectrometry. Refer to KDIGO guidelines for clinical interpretation. In patients with unstable renal function, e.g. those with acute kidney injury, the eGFR may not accurately reflect actual GFR. Performed By: #### 3 4528-0, 50494-6 #### [facility] CLIA [id number] [address] [place] [address] [place] Glucose [Mass/Vol] 120 mg/dL High 74-99 [facility] Comment on above: Order Comment: Leighann suazo Type: BLOOD SPECIMEN Ordering Facility: [facility] Address: [address] [address] Result Comment: The [place] Diabetes Association (ADA) provides guidance for cutoff values for fasting glucose and random glucose. The ADA defines fasting as no caloric intake for at least 8 hours. Fasting plasma glucose results between 100 to 125 mg/dL indicate increased risk for diabetes (prediabetes). Fasting plasma glucose results greater than or equal to 126 mg/dL meet the criteria for diagnosis of diabetes. In the absence of unequivocal hyperglycemia, results should be confirmed by repeat testing. In a patient with classic symptoms of hyperglycemia or hyperglycemic crisis, random plasma glucose results greater than or equal to 200 mg/dL meet the criteria for diagnosis of diabetes. Reference: Standards of Medical Care in Diabetes 2016, [place] [employer] Association. Diabetes Care. 2016.39(Suppl 1). Performed By: #### 3 4528-0, 84381-3 #### [facility] CLIA [id number] [address] [place] [address] [place] Potassium [Moles/Vol] 4.7 mmol/L Normal 3.7-5.1 [facility] Comment on above: Order Comment: Speci men Type: BLOOD SPECIMEN Ordering Facility: [facility] Address: [address] [address] Performed By: #### 3 4528-0, 99281-9 #### [facility] CLIA [id number] [address] [place] [address] [place] Sodium [Moles/Vol] 141 mmol/L Normal 136-144 [facility] Comment on above: Order Comment: Speci men Type: BLOOD SPECIMEN Ordering Facility: [facility] Address: [address] [address] Performed By: #### 3 4528-0, 37551-7 #### [facility] CLIA [id number] [address] [place] [address] [place] Urea nitrogen [Mass/Vol] 19 mg/dL Normal 9-24 [facility] Comment on above: Order Comment: Speci men Type: BLOOD SPECIMEN Ordering Facility: [facility] Address: [address] Performed By: #### 3 4528-0, 27270-0 #### [facility] CLIA [id number] [address] [place] [address] [place] CBC panel Auto (Bld)on 06-21 Erythrocyte distribution width (RBC) [Ratio] 13.5 % Normal 11.5-15.0 [facility] Comment on above: Order Comment: Speci men Type: BLOOD SPECIMEN Ordering Facility: [facility] Address: [address] [address] Performed By: #### 3 4528-0, 20242-3 #### [facility] CLIA [id number] [address] [place] [address] [place] Hematocrit (Bld) [Volume fraction] 43.8 % Normal 39.0-51.0 [facility] Comment on above: Order Comment: Speci men Type: BLOOD SPECIMEN Ordering Facility: [facility] Address: [address] [id number] Performed By: #### 3 4528-0, 02765-2 #### [facility] CLIA [id number] [address] [place] [address] [place] Hemoglobin (Bld) [Mass/Vol] 14.2 g/dL Normal 13.0-17.0 [facility] Comment on above: Order Comment: Speci men Type: BLOOD SPECIMEN Ordering Facility: [facility] Address: [address] [id number] Performed By: #### 3 4528-0, 35307-3 #### [facility] CLIA [id number] [address] [place] [address] [place] MCH (RBC) [Entitic mass] 30.9 pg Normal 26.0-34.0 [facility] Comment on above: Order Comment: Speci men Type: BLOOD SPECIMEN Ordering Facility: [facility] Address: [address] [place], [place] Performed By: #### 3 4528-0, 75949-5 #### [facility] CLIA [id number] [address] [place] [address] [place] MCHC (RBC) [Mass/Vol] 32.4 g/dL Normal 30.5-36.0 [facility] Comment on above: Order Comment: Speci men Type: BLOOD SPECIMEN Ordering Facility: [facility] Address: [address] [place], [place] Performed By: #### 3 4528-0, 46524-3 #### [facility] CLIA [id number] [address] [place] [address] [place] MCV (RBC) [Entitic vol] 95.2 fL Normal 80.0-100.0 [facility] Comment on above: Order Comment: Speci men Type: BLOOD SPECIMEN Ordering Facility: [facility] Address: [address] [place] [address] Performed By: #### 3 4528-0, 55292-0 #### [facility] CLIA [id number] [address] [place] [address] [place] Nucleated RBC (Bld) [#/Vol] 10*3/uL Normal <0.01 [facility] Comment on above: Order Comment: Speci men Type: BLOOD SPECIMEN Ordering Facility: [facility] Address: [address] Performed By: #### 3 4528-0, 38087-4 #### [facility] CLIA [id number] [address] [place] [address] [place] Platelet mean volume (Bld) [Entitic vol] 11.8 fL Normal 9.0-12.7 [facility] Comment on above: Order Comment: Speci men Type: BLOOD SPECIMEN Ordering Facility: [facility] Address: [address] [place] [address] Performed By: #### 3 4528-0, 26407-6 #### [facility] CLIA [id number] [address] [place] [address] [place] Platelets (Bld) [#/Vol] 190 10*3/uL Normal 150-400 [facility] Comment on above: Order Comment: Speci men Type: BLOOD SPECIMEN Ordering Facility: [facility] Address: [address] [place] [address] Performed By: #### 3 4528-0, 99108-4 #### [facility] CLIA [id number] [address] [place] [address] [place] RBC (Bld) [#/Vol] 4.60 10*6/uL Normal 4.20-6.00 [facility] Comment on above: Order Comment: Speci men Type: BLOOD SPECIMEN Ordering Facility: [facility] Address: [address] [place] [address] Performed By: #### 3 4528-0, 08530-1 #### [facility] CLIA [id number] [address] [place] [address] [place] WBC (Bld) [#/Vol] 15.28 10*3/uL High 3.70-11.00 [facility] Comment on above: Order Comment: Specteresa suazo Type: BLOOD SPECIMEN Ordering Facility: [facility] Address: [address] [place] [address] Performed By: #### 3 4528-0, 02545-4 #### [facility] CLIA [id number] [address] [place] [address] [place] CNDSon 06-21-2022 CNDS HNO ID: [id number] Author: Akil Garza PA-C Service: Hospital Medicine Author Type: Physician Keller Machine Operator Type: Discharge Summary Filed: 06/21/2022 1:17 PM Note Text: Attestation signed by Lina Ling MD at 06/21/2022 1:30 PM I have seen and evaluated the patient and discussed the case with the inpatient nursing aide . I agree with the assessment and plan as documented in the above note. Lina Ling MD June 21, 2022 1:30 PM DISCHARGE SUMMARY PATIENT NAME: Boris Varela ADMISSION DATE: 06/20/2022 DISCHARGE DATE: 06/21/2022 ATTENDING PHYSICIAN: Lina Ling MD Code Status: Not on file PCP: No primary care provider on file. Highest Readmission Risk Score: 8 The 30 day readmissions risk score is derived from an internally validated risk model which evaluates patient level characteristics, utilization history, medication orders and lab results up until the day of discharge. Patients with a score of 40 or above are considered highest risk for readmission. Specific patient level drivers will be listed at the bottom of the summary. TRANSITIONS OF CARE CRITICAL ISSUES: LANG MEDICATION CHANGES: N/A LAB MONITORING NEEDED: Not applicable IMAGING FOLLOW-UP: Not applicable LABS AND PROCEDURES PENDING AT DISCHARGE: Test Results Not Yet Available from This Hospitalization: Please Review at Your Follow Up Appointment Order Current Status BLOOD CULTURE Preliminary result BLOOD CULTURE Preliminary result RESP CULTURE + STAIN Preliminary result No pending results. FOLLOW UP: discussed need for pulmonary follow up. Patient stated he is not sure if he wants to travel to any F site. Has been referred to local [facility]. Number provided for him to make an appointment if he wishes REASON FOR HOSPITALIZATION: COPD PRINCIPAL DIAGNOSIS: COPD SECONDARY DIAGNOSIS: Principal Problem: COPD (chronic obstructive pulmonary disease) (HCC) POA: Unknown Resolved Problems: * No resolved hospital problems. * HOSPITAL COURSE: This is a 66 y/o M with PMHx of COPD on 2L supplemental O2 and PAD who presented to ED with SOB for several months which has note been improving. Initially tachycardic in ED which improved with breathing treatments. WBC 18.6, afebrile. Hs-Dania 14-13-12. CXR with no acute findings. Given Duonebs, Solu-Medrol, ceftriaxone and azithromycin. Day after admission patient stated his respiratory status was same that it has been for several months. He recently completed course of antibiotics and was started on chronic prednisone 10 mg daily. States he was given 30 day supply. Leukocytosis likely related to chronic steroid use. No evidence of active infection. Patient stated he was previous on another inhaler but it bothered his throat so he stopped. Continues to smoke but states he has got down to a couple cigarettes per day. Counseled on need to completely stop smoking or disease will continue to progress. Unsure if he wants to establish care at [facility] since there is not a location close to his house. Hx of PAD with stents. Denies hx of [place]. Believes he was on statin in past and did not follow up. Started on atorvastatin. Instructed patient to follow up with both pulmonology and PCP as soon as possible. Number to scheduled with [facility] provided. OPERATIONS/PROCEDURE DURING THIS HOSPITALIZATION: * No surgery found * N/A CONSULTS DURING HOSPITALIZATION: Treatment Team: Attending Provider: Lina Ling MD Primary Service: [facility] 3 Physician Keller Machine Operator: Akil Garza PA-C No orders of the defined types were placed in this encounter. PATIENT CONDITION AT DISCHARGE: Stable ADVANCE CARE PLANNING DISCUSSION (if applicable): N/A DISCHARGE DISPOSITION: Home with Self Care Discharge Physical Exam: VITAL SIGNS: BP 140/88 Pulse 93 Temp 36.3 ?C (97.3 ?F) (Oral) Resp 19 Ht 172.7 cm (5' 8 ) Wt 70.8 kg (156 lb 1.4 oz) SpO2 98% BMI 23.73 kg/m? Physical Exam Performed: GENERAL: Alert, no distress, cooperative NECK: No JVD, Supple LUNGS: globally diminished, intermittent expiratory wheeze, unlabored on during visit CARDIAC: RRR ABDOMEN: soft, NT, ND EXTREMITIES: No deformities, LE edema, or ulcers. SKIN: No suspicious rashes or lesions. NEURO: Sensation and strength grossly intact. Speech clear, AAOx3. PULSES: 2+ radial WOUND/SURGICAL SITE CARE: None SUPPLIES OR EQUIPMENT: None DIET: Resume pre-hospital diet ACTIVITY AND EXERCISE: Resume pre-hospital activity ADDITIONAL INFORMATION: Discharge instructions provided to the patient by bedside RN. All information discussed, including medication compliance, follow-up visits, and lifestyle modifications. Spoke with patient at length regarding discharge plan of care. All questions and concerns addressed. FOLLOW UP APPOINT (more content not included)... Normal [facility] NURSING PROGon 06-21-2022 NURSING PROG HNO ID: [id number] Author: Pearl Hendrix RN Service: ? Author Type: Registered Nurse Type: Nursing Progress Note Filed: 06/21/2022 3:37 PM Note Text: Other: Discharge paperwork and medications explained. Patient stated he had no questions. IV removed. Transport placed for patient. Normal [facility] Bacteria Bld Culton 06-20-19 Bacteria identified Cx Nom (Bld) CULTURE, BLOOD: No growth 5 days Normal [facility] Comment on above: Performed By: #### 3 4528-0, 27656-3 #### [facility] CLIA [id number] [address] [place] [address] [place] Bacteria Spec Resp Culton Bacteria identified Respiratory culture Nom (Unsp spec) ORGANISM ID: 1 Rare Pseudomonas aeruginosa Insignificant colony count. No further workup. ORGANISM ID: 2 Moderate normal respiratory alexandru GRAM STAIN: Moderate Gram positive cocci Many Polymorphonuclear leukocytes Abnormal [facility] Comment on above: Performed By: #### 3 4528-0, 75772-6 #### [facility] CLIA [id number] [address] [place] [address] [place] CBC W Auto Differential pane l (Bld)on 06-20-2022 Basophils (Bld) [#/Vol] 0.07 10*3/uL Normal <0.11 [facility] Comment on above: Order Comment: Speci men Type: BLOOD SPECIMEN Ordering Facility: [facility] Address: [address] [place] [address] Performed By: #### 5 7021-8 #### [facility] CLIA [id number] [address] [place] [address] [place] Basophils/100 WBC (Bld) 0.4 % Normal [facility] Comment on above: Order Comment: Speci men Type: BLOOD SPECIMEN Ordering Facility: [facility] Address: [address] [place] [address] Performed By: #### 5 7021-8 #### [facility] CLIA [id number] [address] [place] [address] [place] Differential cell count method Nom (Bld) Auto Normal [facility] Comment on above: Order Comment: Speci men Type: BLOOD SPECIMEN Ordering Facility: [facility] Address: [address] Performed By: #### 5 7021-8 #### [facility] CLIA [id number] [address] [place] [address] [place] Eosinophils (Bld) [#/Vol] 10*3/uL Normal <0.46 [facility] Comment on above: Order Comment: Speci men Type: BLOOD SPECIMEN Ordering Facility: [facility] Address: [address] Performed By: #### 5 7021-8 #### [facility] CLIA [id number] [address] [place] [address] [place] Eosinophils/100 WBC (Bld) 0.1 % Normal [facility] Comment on above: Order Comment: Speci men Type: BLOOD SPECIMEN Ordering Facility: [facility] Address: [address] Performed By: #### 5 7021-8 #### [facility] CLIA [id number] [address] [place] [address] [place] Erythrocyte distribution width (RBC) [Ratio] 13.5 % Normal 11.5-15.0 [facility] Comment on above: Order Comment: Speci men Type: BLOOD SPECIMEN Ordering Facility: [facility] Address: [address] [place] [address] Performed By: #### 5 7021-8 #### [facility] CLIA [id number] [address] [place] [address] [place] Hematocrit (Bld) [Volume fraction] 52.4 % High 39.0-51.0 [facility] Comment on above: Order Comment: Speci men Type: BLOOD SPECIMEN Ordering Facility: [facility] Address: [address] Performed By: #### 5 7021-8 #### [facility] CLIA [id number] [address] [place] [address] [place] Hemoglobin (Bld) [Mass/Vol] 17.2 g/dL High 13.0-17.0 [facility] Comment on above: Order Comment: Speci men Type: BLOOD SPECIMEN Ordering Facility: [facility] Address: [address] Performed By: #### 5 7021-8 #### [facility] CLIA [id number] [address] [place] [address] [place] Immature granulocytes (Bld) [#/Vol] 0.19 10*3/uL High <0.10 [facility] Comment on above: Order Comment: Speci men Type: BLOOD SPECIMEN Ordering Facility: [facility] Address: [address] Performed By: #### 5 7021-8 #### [facility] CLIA [id number] [address] [place] [address] [place] Immature granulocytes/100 WBC (Bld) 1.0 % Normal [facility] Comment on above: Order Comment: Speci men Type: BLOOD SPECIMEN Ordering Facility: [facility] Address: [address] Performed By: #### 5 7021-8 #### [facility] CLIA [id number] [address] [place] [address] [place] Lymphocytes (Bld) [#/Vol] 1.30 10*3/uL Normal 1.00-4.00 [facility] Comment on above: Order Comment: Speci men Type: BLOOD SPECIMEN Ordering Facility: [facility] Address: [address] Performed By: #### 5 7021-8 #### [facility] CLIA [id number] [address] [place] Lymphocytes/100 WBC (Bld) 7.0 % Normal [facility] Comment on above: Order Comment: Speci men Type: BLOOD SPECIMEN Ordering Facility: [facility] Address: [address] [place], [place] [address] Performed By: #### 5 7021-8 #### [facility] CLIA [id number] [facility] [place] [address] [place] MCH (RBC) [Entitic mass] 31.0 pg Normal 26.0-34.0 [facility] Comment on above: Order Comment: Speci men Type: BLOOD SPECIMEN Ordering Facility: [facility] Address: [address] [place], [place] [address] Performed By: #### 5 7021-8 #### [facility] CLIA [id number] [address] [place] [address] [place] MCHC (RBC) [Mass/Vol] 32.8 g/dL Normal 30.5-36.0 [facility] Comment on above: Order Comment: Speci men Type: BLOOD SPECIMEN Ordering Facility: [facility] Address: [address] [place], [place] [address] Performed By: #### 5 7021-8 #### [facility] CLIA [id number] [address] [place] [address] [place] MCV (RBC) [Entitic vol] 94.4 fL Normal 80.0-100.0 [facility] Comment on above: Order Comment: Speci men Type: BLOOD SPECIMEN Ordering Facility: [facility] Address: [address] [place], [place] [address] Performed By: #### 5 7021-8 #### [facility] CLIA [id number] [address] [place] [address] [place] Monocytes (Bld) [#/Vol] 0.56 10*3/uL Normal <0.87 [facility] Comment on above: Order Comment: Speci men Type: BLOOD SPECIMEN Ordering Facility: [facility] Address: [address] Performed By: #### 5 7021-8 #### [facility] CLIA [id number] [address] [place] [address] [place] Monocytes/100 WBC (Bld) 3.0 % Normal [facility] Comment on above: Order Comment: Speci men Type: BLOOD SPECIMEN Ordering Facility: [facility] Address: [address] Performed By: #### 5 7021-8 #### [facility] CLIA [id number] [address] [place] [address] [place] Neutrophils (Bld) [#/Vol] 16.47 10*3/uL High 1.45-7.50 [facility] Comment on above: Order Comment: Speci men Type: BLOOD SPECIMEN Ordering Facility: [facility] Address: [address] Performed By: #### 5 7021-8 #### [facility] CLIA [id number] [address] [place] [address] [place] Neutrophils/100 WBC (Bld) 88.5 % Normal [facility] Comment on above: Order Comment: Speci men Type: BLOOD SPECIMEN Ordering Facility: [facility] Address: [address] Performed By: #### 5 7021-8 #### [facility] CLIA [id number] [address] [place] [address] [place] Nucleated RBC (Bld) [#/Vol] 10*3/uL Normal <0.01 [facility] Comment on above: Order Comment: Speci men Type: BLOOD SPECIMEN Ordering Facility: [facility] Address: [address] Performed By: #### 5 7021-8 #### [facility] CLIA [id number] [address] [place] [address] [place] Nucleated RBC/100 WBC (Bld) [Ratio] 0.0 /100 WBC Normal [facility] Comment on above: Order Comment: Speci men Type: BLOOD SPECIMEN Ordering Facility: [facility] Address: [address] [place] [address] Performed By: #### 5 7021-8 #### [facility] CLIA [id number] [address] [place] [address] [place] Platelet mean volume (Bld) [Entitic vol] 11.3 fL Normal 9.0-12.7 [facility] Comment on above: Order Comment: Speci men Type: BLOOD SPECIMEN Ordering Facility: [facility] Address: [address] [place] [address] Performed By: #### 5 7021-8 #### [facility] CLIA [id number] [address] [place] [address] [place] Platelets (Bld) [#/Vol] 241 10*3/uL Normal 150-400 [facility] Comment on above: Order Comment: Speci men Type: BLOOD SPECIMEN Ordering Facility: [facility] Address: [address] [place], [place] [address] Performed By: #### 5 7021-8 #### [facility] CLIA [id number] [address] [place] [address] [place] RBC (Bld) [#/Vol] 5.55 10*6/uL Normal 4.20-6.00 [facility] Comment on above: Order Comment: Speci men Type: BLOOD SPECIMEN Ordering Facility: [facility] Address: [address] [place], [place] [address] Performed By: #### 5 7021-8 #### [facility] CLIA [id number] [address] [place] [address] [place] WBC (Bld) [#/Vol] 18.61 10*3/uL High 3.70-11.00 [facility] Comment on above: Order Comment: Speci men Type: BLOOD SPECIMEN Ordering Facility: [facility] Address: [place] [address] Performed By: #### 5 7021-8 #### [facility] CLIA [id number] [address] [place] [address] [place] Comprehensive metabolic 2000 panelon 06-20-2022 Albumin [Mass/Vol] 4.0 g/dL Normal 3.9-4.9 [facility] Comment on above: Order Comment: Speci men Type: BLOOD SPECIMEN Ordering Facility: [facility] Address: [address] [place] [address] Performed By: #### 3 4528-0, 44480-4 #### [facility] CLIA [id number] [address] [place] [address] [place] ALP [Catalytic activity/Vol] 90 U/L Normal 38-113 [facility] Comment on above: Order Comment: Speci men Type: BLOOD SPECIMEN Ordering Facility: [facility] Address: [address] [place] [address] Performed By: #### 3 4528-0, 38433-7 #### [facility] CLIA [id number] [address] [place] [address] [place] ALT [Catalytic activity/Vol] 36 U/L Normal 10-54 [facility] Comment on above: Order Comment: Speci men Type: BLOOD SPECIMEN Ordering Facility: [facility] Address: [address] [place], [place] [address] Performed By: #### 3 4528-0, 97823-9 #### [facility] CLIA [id number] [address] [place] [address] [place] Anion gap [Moles/Vol] 10 mmol/L Normal 9-18 [facility] Comment on above: Order Comment: Speci men Type: BLOOD SPECIMEN Ordering Facility: [facility] Address: [address] Performed By: #### 3 4528-0, 23411-7 #### [facility] CLIA [id number] [address] [place] [address] [place] AST [Catalytic activity/Vol] 20 U/L Normal 14-40 [facility] Comment on above: Order Comment: Speci men Type: BLOOD SPECIMEN Ordering Facility: [facility] Address: [address] Performed By: #### 3 4528-0, 54918-0 #### [facility] CLIA [id number] [address] [place] [address] [place] Bilirubin [Mass/Vol] 0.6 mg/dL Normal 0.2-1.3 [facility] Comment on above: Order Comment: Speci men Type: BLOOD SPECIMEN Ordering Facility: [facility] Address: [address] Performed By: #### 3 4528-0, 28921-2 #### [facility] CLIA [id number] [address] [place] [address] [place] Calcium [Mass/Vol] 9.2 mg/dL Normal 8.5-10.2 [facility] Comment on above: Order Comment: Speci men Type: BLOOD SPECIMEN Ordering Facility: [facility] Address: [address] [place] [address] Performed By: #### 3 4528-0, 91084-4 #### [facility] CLIA [id number] [address] [place] [address] [place] Chloride [Moles/Vol] 101 mmol/L Normal 97-105 [facility] Comment on above: Order Comment: Speci men Type: BLOOD SPECIMEN Ordering Facility: [facility] Address: [address] Performed By: #### 3 4528-0, 45913-0 #### [facility] CLIA [id number] [address] [place] [address] [place] CO2 [Moles/Vol] 30 mmol/L Normal 22-30 [facility] Comment on above: Order Comment: Speci men Type: BLOOD SPECIMEN Ordering Facility: [facility] Address: [address] [place] [address] Performed By: #### 3 4528-0, 48548-3 #### [facility] CLIA [id number] [address] [place] [address] [place] Creatinine [Mass/Vol] 0.99 mg/dL Normal 0.73-1.22 [facility] Comment on above: Order Comment: Speci men Type: BLOOD SPECIMEN Ordering Facility: [facility] Address: [address] [place] [address] Performed By: #### 3 4528-0, 03424-1 #### [facility] CLIA [id number] [facility] [place] [address] [place] ESTIMATED GLOMERULAR FILTRATION RATE 84 mL/min/1.73m??? Normal >=60 [facility] Comment on above: Order Comment: Speci men Type: BLOOD SPECIMEN Ordering Facility: [facility] Address: [address] [place] [address] Result Comment: [place] mated Glomerular Filtration Rate (eGFR) is calculated using the 2020 CKD-EPI creatinine equation. This equation utilizes serum creatinine, sex, and age as parameters. The creatinine assay has traceable calibration to isotope dilution-mass spectrometry. Refer to KDIGO guidelines for clinical interpretation. In patients with unstable renal function, e.g. those with acute kidney injury, the eGFR may not accurately reflect actual GFR. Performed By: #### 3 4528-0, 22297-5 #### [facility] CLIA [id number] [address] [place] [address] [place] Glucose [Mass/Vol] 164 mg/dL High 74-99 [facility] Comment on above: Order Comment: Leighann suazo Type: BLOOD SPECIMEN Ordering Facility: [facility] Address: [place] [address] Result Comment: The [place] Diabetes Association (ADA) provides guidance for cutoff values for fasting glucose and random glucose. The ADA defines fasting as no caloric intake for at least 8 hours. Fasting plasma glucose results between 100 to 125 mg/dL indicate increased risk for diabetes (prediabetes). Fasting plasma glucose results greater than or equal to 126 mg/dL meet the criteria for diagnosis of diabetes. In the absence of unequivocal hyperglycemia, results should be confirmed by repeat testing. In a patient with classic symptoms of hyperglycemia or hyperglycemic crisis, random plasma glucose results greater than or equal to 200 mg/dL meet the criteria for diagnosis of diabetes. Reference: Standards of Medical Care in Diabetes 2016, [place] [employer]. Diabetes Care. 2016.39(Suppl 1). Performed By: #### 3 4528-0, 39802-6 #### [facility] CLIA [id number] [address] [place] [address] [place] Potassium [Moles/Vol] 4.9 mmol/L Normal 3.7-5.1 [facility] Comment on above: Order Comment: Leighann suazo Type: BLOOD SPECIMEN Ordering Facility: [facility] Address: [address] Performed By: #### 3 4528-0, 09029-0 #### [facility] CLIA [id number] [address] [place] [address] [place] Protein [Mass/Vol] 7.3 g/dL Normal 6.3-8.0 [facility] Comment on above: Order Comment: Leighann suazo Type: BLOOD SPECIMEN Ordering Facility: [facility] Address: [address] [place], [place] [address] Performed By: #### 3 4528-0, 32734-2 #### [facility] CLIA [id number] [address] [place] [id number] [place] Sodium [Moles/Vol] 141 mmol/L Normal 136-144 [facility] Comment on above: Order Comment: Speci men Type: BLOOD SPECIMEN Ordering Facility: [facility] Address: [address] [place] [id number] Performed By: #### 3 4528-0, 18343-1 #### [facility] CLIA [id number] [address] [place] [address] Urea nitrogen [Mass/Vol] 23 mg/dL Normal 9-24 [facility] Comment on above: Order Comment: Speci men Type: BLOOD SPECIMEN Ordering Facility: [facility] Address: [address] [place] [address] Performed By: #### 3 4528-0, 09620-3 #### [facility] CLIA [id number] [address] ED NOTEon 06-20-2022 ED NOTE HNO ID: [id number] Author: Mamie Lao RN Service: ? Author Type: Registered Nurse Type: ED Notes Filed: 06/20/2022 4:37 PM Note Text: Bed: E18-04 Expected date: Expected time: Means of arrival: Comments: Normal [facility] ED NOTE HNO ID: [id number] Author: Mamie Lao RN Service: Emergency Medicine Author Type: Registered Nurse Type: ED Notes Filed: 06/20/2022 3:29 PM Note Text: Assumed care of pt. Pt presented to ED with c/o SOB for the past month and intermittent CP. States he has been seen at previous hospitals, but doesn't believe he is getting better and wants a second opinion. Has a hx of COPD. Denies any SOB or CP at this time. Resting in bed on 0.5L NC sating at 97%. Pt AANDOx3. NAD noted at this time. Safety checks completed, call light in reach. Normal [facility] ED NOTE HNO ID: [id number] Author: Mamie Lao RN Service: Emergency Medicine Author Type: Registered Nurse Type: ED Notes Filed: 06/20/2022 3:13 PM Note Text: Report from JACQUELINE Evans. Normal [facility] ED NOTE HNO ID: [id number] Author: Priyanka Hammond Service: Emergency Medicine Author Type: [employer] Type: ED Notes Filed: 06/20/2022 12:55 PM Note Text: RT to bedside. Pt placed on Zoll as precaution due to HR above 130 BPM sustained Normal [facility] ED PROV NOTEon 06-20-2022 ED PROV NOTE HNO ID: [id number] Author: Lillian Maxwell MD Service: Emergency Medicine Author Type: Physician Type: ED Provider Notes Filed: 06/21/2022 7:34 AM Note Text: ED Provider Note Patient Name: Boris Varela : 1955 SERVICE DATE: 06/20/22 History Patient presents with: Shortness of Breath: Short of breath for month Chest Pain: Intermittent chest pain for a month, Second Opinion: Pt has been seen at multiple ER visits, not getting better Boris is a 66-year-old male with PMH significant for COPD on 2 L nasal cannula, PAD/P multiple stents in lower extremities, CAD, tobacco abuse who presents emergency department with concern for shortness of breath and chest pain. Patient has been having ongoing worsening shortness of breath for the last few months associated with intermittent chest discomfort. Patient had been seeing doctors at [place] and [facility] without any significant improvement of his symptoms. They feel patient's symptoms are getting worse. He reports he has cut back on his tobacco use a lot. States he does have a cough productive of white sputum. Patient does state he takes 10 mg prednisone on daily basis with last dose here today. He states that he was recently on antibiotics for his breathing and been off antibiotics for the last 7 days. Denies any lower extremity swelling, fevers, chills, nasal congestion, abdominal pain, vomiting, diarrhea. History provided by: Spouse and patient manager advertising used: No No past medical history on file. No past surgical history on file. No family history on file. Social History Tobacco Use Smoking status: Not on file Smokeless tobacco: Not on file Substance and Sexual Activity Alcohol use: Not on file Drug use: Not on file Sexual activity: Not on file ALLERGIES No Known Allergies Review of Systems Constitutional: Negative for chills and fever. HENT: Negative for congestion. Respiratory: Positive for cough and shortness of breath. Cardiovascular: Positive for chest pain. Negative for leg swelling. Gastrointestinal: Negative for abdominal pain, constipation, diarrhea, nausea and vomiting. Genitourinary: Negative for dysuria, frequency, hematuria and urgency. Musculoskeletal: Negative for arthralgias, gait problem and joint swelling. Skin: Negative for color change, rash and wound. Neurological: Negative for weakness and numbness. Psychiatric/Behavior al: The patient is not nervous/anxious. All other systems reviewed and are negative. Physical Exam Vitals BP Pulse Temp Temp src Resp SpO2 Weight Height 06/20/22 1233 06/20/22 1233 06/20/22 1233 06/20/22 1233 06/20/22 1233 06/20/22 1233 06/20/22 1234 06/20/22 1234 161/85 (!) 131 36.8 ?C (98.2 ?F) Oral 18 (!) 94 % 70.8 kg (156 lb) 1.727 m (5' 8 ) Physical Exam Vitals and nursing note reviewed. Constitutional: General: He is not in acute distress. Appearance: He is well-developed. He is not diaphoretic. HENT: Head: Normocephalic and atraumatic. Jaw: No trismus. Right Ear: Tympanic membrane and ear canal normal. No middle ear effusion. Tympanic membrane is not injected. Left Ear: Tympanic membrane and ear canal normal. No middle ear effusion. Tympanic membrane is not injected. Nose: Nose normal. No mucosal edema or rhinorrhea. Mouth/Throat: Mouth: Mucous membranes are dry. Pharynx: Uvula midline. No oropharyngeal exudate, posterior oropharyngeal erythema or uvula swelling. Cardiovascular: Rate and Rhythm: Regular rhythm. Tachycardia present. Heart sounds: Normal heart sounds. No murmur heard. No friction rub. No gallop. Pulmonary: Effort: Tachypnea and accessory muscle usage present. No respiratory distress. Breath sounds: Wheezing (diffuse expiratory) present. No rhonchi or rales. Skin: General: Skin is warm. Capillary Refill: Capillary refill takes less than 2 seconds. Findings: No erythema or rash. Neurological: Mental Status: He is alert and oriented to person, place, and time. Does patient meet sepsis criteria?: Yes Diagnostic Testing ED Labs Ordered and Reviewed HIGH SENSITIVITY TROPONIN T (INITIAL) - Abnormal; Notable for the following components: Result Value Ref Range DANIA High Sensitivity 14 (*) <12 ng/L All other components within normal limits COMP METABOLIC PANEL - Abnormal; Notable for the following components: Glucose 164 (*) 74 - 99 mg/dL All other components within normal limits CBC + DIFF - Abnormal; Notable for the following components: WBC 18.61 (*) 3.70 - 11.00 k/uL Hemoglobin 17.2 (*) 13.0 - 17.0 g/dL Hematocrit 52.4 (*) 39.0 - 51.0 % Abs Neut 16.47 (*) 1.45 - 7.50 k/uL Abs Immature Gran 0.19 (*) <0.10 k/uL All other components within normal limits Narrative: This is an appended report. These results have been appended to a previously verified report. HIGH SENSITIVITY TROPONIN T (SECOND) - Abnormal; Notable for the following components: DANIA H (more content not included)... Normal [facility] FLUABV+SARS-CoV-2+RSV Pnl Re sp ANGELA+probeon 06-20-2022 FLUABV+SARS-CoV-2+RSV Pnl Resp ANGELA+probe COVID 19 RESULT: Not detected The method used is RT-PCR or an equivalent NAAT method. Reference Range(the expected result in uninfected individuals): Not detected INFLUENZA A PCR: Not detected INFLUENZA B PCR: Not detected RSV PCR: Not detected Normal [facility] Comment on above: Performed By: #### 3 4528-0, 84388-5 #### [facility] CLIA [id number] [address] [place] [address] OF [facility] HIGH SENSITIVITY TROPONIN T (INITIAL)on 06-20-2022 HIGH SENSITIVITY DANIA 14 ng/L High <12 [facility] Comment on above: Order Comment: Speci men Type: BLOOD SPECIMEN Ordering Facility: [facility] Address: [address] [place], [place] [address] Result Comment: When assessing risk for acute coronary syndromes: In patients undergoing blood draw greater than or equal to 2 hours from symptom onset, with history of very low to moderate risk and non-ischemic ECG, an initial hs-Troponin T less than 12 ng/L AND a 1 hour delta hs-Troponin T less than 3 ng/L should be considered very low risk for 30 day MACE. Performed By: #### 3 4528-0, 49444-1 #### [facility] CLIA [id number] [address] OF [facility] HIGH SENSITIVITY TROPONIN T (SECOND)on 06-20-2022 HIGH SENSITIVITY DANIA 13 ng/L High <12 [facility] Comment on above: Order Comment: Speci men Type: BLOOD SPECIMEN Ordering Facility: [facility] Address: [address] [place] [address] Result Comment: When assessing risk for acute coronary syndromes: In patients undergoing blood draw greater than or equal to 2 hours from symptom onset, with history of very low to moderate risk and non-ischemic ECG, an initial hs-Troponin T less than 12 ng/L AND a 1 hour delta hs-Troponin T less than 3 ng/L should be considered very low risk for 30 day MACE. Performed By: #### L [id number] #### [facility] CLIA [id number] [address] HIGH SENSITIVITY TROPONIN T (THIRD) 3 HRS AFTER INITIALon 06-20-2022 HIGH SENSITIVITY DANIA 12 ng/L High <12 [facility] Comment on above: Order Comment: Leighann suazo Type: BLOOD SPECIMEN Ordering Facility: [facility] Address: [address] [place] [address] Result Comment: When assessing risk for acute coronary syndromes: In patients undergoing blood draw greater than or equal to 2 hours from symptom onset, with history of very low to moderate risk and non-ischemic ECG, an initial hs-Troponin T less than 12 ng/L AND a 1 hour delta hs-Troponin T less than 3 ng/L should be considered very low risk for 30 day MACE. Performed By: #### 3 4528-0, 17722-7 #### [facility] CLIA [id number] [address] [place] HISTORY PHYSICALon 02-18-202 3 HISTORY PHYSICAL HNO ID: [id number] Author: Davy De Souza MD Service: Hospital Medicine Author Type: Physician Type: HANDP Filed: 06/20/2022 7:19 PM Note Text: DEPARTMENT OF HOSPITAL MEDICINE HISTORY AND PHYSICAL EXAM SERVICE DATE: 06/20/2022 SERVICE TIME: 6:38 PM Primary Care Physician: No primary care provider on file. NIGHT AND WEEKEND COVERAGE: Subjective CHIEF COMPLAINT: Shortness of Breath (Short of breath for month), Chest Pain (Intermittent chest pain for a month, ), and Second Opinion (Pt has been seen at multiple ER visits, not getting better) HPI: This is a 66 year old male with PMH of COPD on 2 L at baseline (recently started on chronic prednisone 10 mg daily) who presents with shortness of breath for months. Patient states that he has had COPD for years due to smoking, but for the past couple of months he has been feeling very weak. He was admitted to the hospital in [place] and treated for COPD exacerbation and pneumonia but he was not happy with the treatment and decided to come here. Today patient endorses weakness, shortness of breath on exertion, and mild right-sided chest pain. He states he has a cough but it is chronic in nature. He does endorse using his rescue inhaler more often for the past couple of weeks. He received antibiotics until 4 days ago (unclear which ones). He denies fever, chills, lightheadedness, dizziness, urinary symptoms, or any other abnormal symptoms. He smoked 2 packs/days for about 40 years, currently smoking 2 to 3 cigarettes/day. In the ED patient afebrile Tmax 37.2. Initially with pulse up to 131, improved to 102 after respiratory treatment. Respirations 20. Blood pressure 110/76, pulse ox 96% on 0.5 L on nasal cannula. CBC with leukocytosis 18.6, hemoglobin 17.2, no other abnormalities. CMP with no abnormalities. High-sensitivity troponins with negative delta. proBNP 124. Coags within normal limits. COVID-negative. ABG with pH of 7.4, bicarb of 29.4, normal PCO2. Checks x-ray with no acute findings. Patient was given DuoNebs, Solu-Medrol, ceftriaxone and azithromycin. Will be admitted for further management. Labs Reviewed HIGH SENSITIVITY TROPONIN T (INITIAL) - Abnormal; Notable for the following components: Result Value DANIA High Sensitivity 14 (*) All other components within normal limits COMP METABOLIC PANEL - Abnormal; Notable for the following components: Glucose 164 (*) All other components within normal limits CBC + DIFF - Abnormal; Notable for the following components: WBC 18.61 (*) Hemoglobin 17.2 (*) Hematocrit 52.4 (*) Abs Neut 16.47 (*) Abs Immature Gran 0.19 (*) All other components within normal limits Narrative: This is an appended report. These results have been appended to a previously verified report. HIGH SENSITIVITY TROPONIN T (SECOND) - Abnormal; Notable for the following components: DANIA High Sensitivity 13 (*) All other components within normal limits ED BG ARTERIAL/LAB PANELS - Abnormal; Notable for the following components: pO2,Arterial(POCT) 107.8 (*) HCO3,Arterial(POCT) 29.4 (*) O2Hb,Arterial(POCT) 94.6 (*) All other components within normal limits Narrative: Meter ID:ED Location:ED [facility], [address] [place] [address], [facility] HIGH SENSITIVITY TROPONIN T (THIRD) 3 HRS AFTER INITIAL - Abnormal; Notable for the following components: DANIA High Sensitivity 12 (*) All other components within normal limits NT PRO BNP - Normal MAGNESIUM BLD - Normal ACTIVATED PTT - Normal Narrative: Unfractionated Heparin Therapeutic Ranges: Standard Heparin Nomogram: 53 to 78 seconds (anti-Xa level of 0.3 to 0.7 U/ml) Low Dose/ACS Nomogram: 49 to 67 seconds (anti-Xa level of 0.2 to 0.5 U/ml) Stroke Treatment Nomogram: 49 to 67 seconds (anti-Xa level of 0.2 to 0.5 U/ml) Note: The APTT therapeutic range has been determined for the current lot of laboratory APTT reagent in use throughout the [facility]. PROTHROMBIN TIME/PT - Normal EXPEDITED COVID, FLU A/B + RSV - Normal Narrative: This test has been authorized by FDA under an Emergency Use Authorization (EUA). Test performed by [facility], [facility] [place], [address] [place] [address]. LACTATE - ED (POC) ARTERIAL BLOOD GAS - ED (POC) BLOOD CULTURE BLOOD CULTURE RESP CULTURE + STAIN No past medical history on file. No past surgical history on file. No family history on file. PRIOR TO ADMISSION MEDICATIONS: No current outpatient medications ALLERGIES No Known Allergies REVIEW OF SYSTEM: Review of Systems Constitutional: Positive for malaise/fatigue. Negative for chills, fever and weight loss. HENT: Negative for ear discharge, ear pain, hearing loss, nosebleeds and tinnitus. Eyes: Negative for blurred vision, double vision, photophobia, pain and discharge. Respiratory: Positive for c (more content not included)... Normal [facility] Magnesium [facility] 06-20 Magnesium [Mass/Vol] 2.2 mg/dL Normal 1.7-2.3 [facility] Comment on above: Order Comment: Leighann suazo Type: BLOOD SPECIMEN Ordering Facility: [facility] Address: [address] [place] [address] Performed By: #### 3 4528-0, 24303-7 #### [facility] [place] [id number] [address] [place] [address] [place] NT-proBNP [facility] 06-20 Natriuretic peptide.B prohormone N-Terminal [Mass/Vol] 124 pg/mL Normal <125 [facility] Comment on above: Order Comment: Leighann suazo Type: BLOOD SPECIMEN Ordering Facility: [facility] Address: [address] [place] [address] Performed By: #### 3 4528-0, 86828-6 #### [facility] [place] [id number] [address] [place] [address] [place] PT panel Coag (PPP)on 2022 INR Coag (PPP) [Relative time] 1.0 {INR} Normal 0.9-1.3 [facility] Comment on above: Order Comment: Leighann suazo Type: BLOOD SPECIMEN Ordering Facility: [facility] Address: [address] [place] [address] Result Comment: Trisha min K Antagonist (VKA) Therapeutic Range: INR 2 to 3 (Target INR of 2.5) Note: For patients treated with VKA drugs, such as warfarin, the [place] [employer] 2012 Guideline recommends a therapeutic INR range of 2 to 3 (target INR of 2.5). This recommendation includes high-risk patients with antiphospholipid syndrome with previous arterial or venous thromboembolism, current-generation mechanical or bioprosthetic aortic heart valve replacement. Note: Patients with mechanical aortic valve replacement and additional risk factors for thromboembolic events (atrial fibrillation, previous thromboembolism, LV dysfunction, hypercoagulable conditions) or an older generation mechanical AVR (i.e., ball in-Cage) or any mechanical MVR should have a INR therapeutic range of 2.5 to 3.5 (target INR of 3). Dominiquett GH, et al. Chest 2012, 141:7S-47S Bishop RA, et al. [facility] 2017, 70: 252-289 Performed By: #### 3 4528-0, 51385-5 #### [facility] CLIA [id number] [address] [place] [address] [place] PT Coag (PPP) [Time] 10.3 s Normal 9.7-13.0 [facility] Comment on above: Order Comment: Speci men Type: BLOOD SPECIMEN Ordering Facility: [facility] Address: [address] [place] [address] Performed By: #### 3 4528-0, 81417-0 #### [facility] CLIA [id number] [address] [place] [address] [place] XR CHEST 1V FRONTAL PORTon 0 06-20-2022 XR CHEST 1V FRONTAL PORT * * *Final Report* * * DATE OF EXAM: Jun 20 2022 1:06PM EGX [id number] - XR CHEST 1V FRONTAL PORT / PROCEDURE REASON: Fatigue and malaise * * * * Physician Interpretation * * * * EXAMINATION: CHEST RADIOGRAPH (PORTABLE SINGLE VIEW AP) Exam Date/Time: 06/20/2022 1:06 PM Clinical History: Fatigue and malaise, Shortness of breath MQ: [id number] Comparison: None available. RESULT: Lines, tubes, and devices: None. Lungs and pleura: The lungs are clear. There is no evidence of pneumothorax or pleural effusion. Cardiomediastinal silhouette: Normal cardiomediastinal silhouette. Other: No acute bony abnormalities. IMPRESSION: No acute findings. Infection Prevention Specialist: JW Transcribe Date/Time: Jun 20 2022 1:17P Dictated by : TANA GUERRA MD This examination was interpreted and the report reviewed and electronically signed by: TANA GUERRA MD on Jun 20 2022 1:19PM EST [id number] CN Normal [facility] aPTT PPPon 06-20-2022 aPTT Coag (PPP) [Time] 23.4 s Normal 23.0-32.4 [facility] Comment on above: Order Comment: Speci men Type: BLOOD SPECIMEN Ordering Facility: [facility] Address: [address] [place] [address] Performed By: #### 3 4528-0, 68228-6 #### [facility] CLIA [id number] [address] [place] [address] [place] CBC AUTO DIFFon 06-09-2022 BASO # 0.0 103/ul Normal 0.0-0.1 [facility] Comment on above: Performed By: #### C BC #### [facility] [address] [place] [address] Dr. Jossy Porras Basophils/100 WBC (Bld) 0.1 % Critically low 0.2-2.0 [facility] Comment on above: Performed By: #### C BC #### [facility] [address] [address] [address] Jossy Porras EO # 0.0 103/ul Normal 0.0-0.7 [facility] Comment on above: Performed By: #### C BC #### [facility] [address] [address] [address] Jossy Porras Eosinophils/100 WBC (Bld) 0.1 % Critically low 0.9-7.0 [facility] Comment on above: Performed By: #### C BC #### [facility] [address] [place] [address] Dr. Jossy Porras Erythrocyte distribution width (RBC) [Ratio] 13.4 % Normal 11.0-15.0 [facility] Comment on above: Performed By: #### C BC #### [facility] [address] [place] [address] Dr. Jossy Porras Hematocrit (Bld) [Volume fraction] 43.9 % Normal 42.0-54.0 [facility] Comment on above: Performed By: #### C BC #### [facility] [address] [place] [address] Dr. Jossy Porras Hemoglobin (Bld) [Mass/Vol] 13.9 g/dL Critically low 14.0-18.0 [facility] Comment on above: Performed By: #### C BC #### [facility] [address] [place] [address] Dr. Jossy Porras IG # 0.10 10e3/ul Critically high 0.00-0.03 [facility] Comment on above: Performed By: #### C BC #### [facility] [address] [place] [address] Dr. Jossy Porras IG % 0.7 % Critically high 0.0-0.5 [facility] Comment on above: Performed By: #### C BC #### [facility] [address] [place] [address] Dr. Jossy Porras LYMPH # 0.8 103/ul Critically low 1.2-3.8 [facility] Comment on above: Performed By: #### C BC #### [facility] [address] [place] [address] Dr. Jossy Porras Lymphocytes/100 WBC (Bld) 5.4 % Critically low 20.5-60.0 [facility] Comment on above: Performed By: #### C BC #### [facility] [address] [place] [address] Dr. Jossy Porras MANUAL DIFF REQ NO Normal [facility] Comment on above: Performed By: #### C BC #### [facility] [address] [place] [address] Dr. Jossy Porras MCH (RBC) [Entitic mass] 31.0 pg Normal 25.9-34.0 [facility] Comment on above: Performed By: #### C BC #### [facility] [address] [place] [address] Dr. Jossy Porras MCHC (RBC) [Mass/Vol] 31.7 g/dL Normal 29.9-35.2 [facility] Comment on above: Performed By: #### C BC #### [facility] [address] [place] [address] Dr. Jossy Porras MCV (RBC) [Entitic vol] 97.8 fL Critically high 80.0-94.0 [facility] Comment on above: Performed By: #### C BC #### [facility] [address] [place] [address] Dr. Jossy Porras MONO # 0.4 103/ul Normal 0.3-0.8 [facility] Comment on above: Performed By: #### C BC #### [facility] [address] [place] [address] Dr. Jossy Porars Monocytes/100 WBC (Bld) 2.6 % Normal 1.7-12.0 [facility] Comment on above: Performed By: #### C BC #### [facility] [address] [place] [address] Dr. Jossy Porras NEUT # 14.0 103/ul Critically high 1.4-6.5 [facility] Comment on above: Performed By: #### C BC #### [facility] [address] [place] [address] Dr. Jossy Porras Neutrophils/100 WBC (Bld) 91.1 % Critically high 43.0-75.0 [facility] Comment on above: Performed By: #### C BC #### [facility] [address] [place] [address] Dr. Jossy Porras Platelet mean volume (Bld) [Entitic vol] 12.4 fL Normal 9.5-13.5 [facility] Comment on above: Performed By: #### C BC #### [facility] [address] [place] [address] Dr. Jossy Porras PLT 159 103/ul Normal 150-450 [facility] Comment on above: Performed By: #### C BC #### [facility] [address] [place] [address] Dr. Jossy Porras RBC 4.49 106/ul Critically low 4.70-6.10 [facility] Comment on above: Performed By: #### C BC #### [facility] [address] [place] [address] Dr. Jossy Porras WBC 15.3 103/ul Critically high 4.0-11.0 [facility] Comment on above: Performed By: #### C BC #### [facility] [address] [place] [address] Dr. Jossy Porras PROF 14(COMP METB)on 023 Albumin [Mass/Vol] 2.9 g/dL Critically low 3.4-5.0 [facility] Comment on above: Performed By: #### C BC #### [facility] [address] [place] [address] Dr. Jossy Porras Albumin/Globulin [Mass ratio] 1.0 {ratio} Normal [facility] Comment on above: Performed By: #### C BC #### [facility] [address] [place] [address] Dr. Jossy Porras ALP [Catalytic activity/Vol] 75 U/L Normal 46-116 [facility] Comment on above: Performed By: #### C BC #### [facility] [address] [place] [address] Dr. Jossy Porras ALT [Catalytic activity/Vol] 37 U/L Normal 16-63 [facility] Comment on above: Performed By: #### C BC #### [facility] [address] [place] [address] Dr. Jossy Porras Anion gap [Moles/Vol] 10.8 mmol/L Normal [facility] Comment on above: Performed By: #### C BC #### [facility] [address] [place] [address] Dr. Jossy Porras AST [Catalytic activity/Vol] 17 U/L Normal 15-37 [facility] Comment on above: Performed By: #### C BC #### [facility] [address] [place] [address] Dr. Jossy Porras Bilirubin [Mass/Vol] 0.3 mg/dL Normal 0.2-1.0 [facility] Comment on above: Performed By: #### C BC #### [facility] [address] [place] [address] Dr. Jossy oPrras Calcium [Mass/Vol] 8.6 mg/dL Normal 8.5-10.1 [facility] Comment on above: Performed By: #### C BC #### [facility] [address] [place] [address] Dr. Jossy Porras Chloride [Moles/Vol] 101 mmol/L Normal 98-107 [facility] Comment on above: Performed By: #### C BC #### [facility] [address] [place] [address] Dr. Jossy Porras CO2 [Moles/Vol] 30.7 mmol/L Normal 21.0-32.0 [facility] Comment on above: Performed By: #### C BC #### [facility] [address] [place] [address] Dr. Jossy Porras Creatinine [Mass/Vol] 0.92 mg/dL Normal 0.70-1.30 [facility] Comment on above: Performed By: #### C BC #### [facility] [address] [place] [address] Dr. Jossy Porras EGFR-AF ITALIAN >60 Normal >=60 [facility] Comment on above: Performed By: #### C BC #### [facility] [address] [place] [address] Dr. Jossy Porras EGFR-NON AF ITALIAN >60 Normal >=60 [facility] Comment on above: Performed By: #### C BC #### [facility] [address] [place] [address] Dr. Jossy Porras Globulin (S) [Mass/Vol] 3.0 g/dL Normal [facility] Comment on above: Performed By: #### C BC #### [facility] [address] [address] [address] Jossy Porras Glucose [Mass/Vol] 144 mg/dL Critically high 74-106 [facility] Comment on above: Performed By: #### C BC #### [facility] [address] [address] [address] Jossy Porras Potassium [Moles/Vol] 4.5 mmol/L Normal 3.5-5.1 [facility] Comment on above: Performed By: #### C BC #### [facility] [address] [address] [address] Jossy Porras Protein [Mass/Vol] 5.9 g/dL Critically low 6.4-8.2 [facility] Comment on above: Performed By: #### C BC #### [facility] [address] [address] [address] Jossy Porras Sodium [Moles/Vol] 138 mmol/L Normal 136-145 [facility] Comment on above: Performed By: #### C BC #### [facility] [address] [address] [address] Jossy Porras Urea nitrogen [Mass/Vol] 19.0 mg/dL Critically high 7.0-18.0 [facility] Comment on above: Performed By: #### C BC #### [facility] [address] [address] [address] Jossy oPrras Urea nitrogen/Creatinine [Mass ratio] 20.7 mg/mg Normal [facility] Comment on above: Performed By: #### C BC #### [facility] [address] [address] [address] Jossy Porras CBC AUTO DIFFon 06-08-2022 BASO # 0.0 103/ul Normal 0.0-0.1 [facility] Comment on above: Performed By: #### C BC ####[facility] [address] [address]Dr. Jossy Porras Basophils/100 WBC (Bld) 0.1 % Critically low 0.2-2.0 [facility] Comment on above: Performed By: #### C BC ####[facility] [address] [id number]. Jossy Porras EO # 0.0 103/ul Normal 0.0-0.7 [facility] Comment on above: Performed By: #### C BC ####[facility] [address] [id number]. Jossy Porras Eosinophils/100 WBC (Bld) 0.0 % Critically low 0.9-7.0 [facility] Comment on above: Performed By: #### C BC ####[facility] [address] [address]Dr. Jossy Porras Erythrocyte distribution width (RBC) [Ratio] 13.2 % Normal 11.0-15.0 [facility] Comment on above: Performed By: #### C BC ####[facility] [address] [place], [place] [address]Dr. Jossy Porras Hematocrit (Bld) [Volume fraction] 46.4 % Normal 42.0-54.0 [facility] Comment on above: Performed By: #### C BC ####[facility] [address] [place], [place] [address]Dr. Jossy Porras Hemoglobin (Bld) [Mass/Vol] 14.2 g/dL Normal 14.0-18.0 [facility] Comment on above: Performed By: #### C BC ####[facility] [address] [place], [place] [address]Dr. Jossy Porras IG # 0.04 10e3/ul Critically high 0.00-0.03 [facility] Comment on above: Performed By: #### C BC ####[facility] [address] [place], [place] [address]Dr. Jossy Porras IG % 0.5 % Normal 0.0-0.5 [facility] Comment on above: Performed By: #### C BC ####[facility] [address] [place], [place] [address]Dr. Amiemyron Porras LYMPH # 0.6 103/ul Critically low 1.2-3.8 [facility] Comment on above: Performed By: #### C BC ####[facility] [address] [id number]. Jossy Porras Lymphocytes/100 WBC (Bld) 7.3 % Critically low 20.5-60.0 [facility] Comment on above: Performed By: #### C BC ####[facility] [address] [id number] Porras MANUAL DIFF REQ NO Normal [facility] Comment on above: Performed By: #### C BC ####[facility] [address] [id number]. Jossy Porras MCH (RBC) [Entitic mass] 30.4 pg Normal 25.9-34.0 [facility] Comment on above: Performed By: #### C BC ####[facility] [address] [address]Dr. Jossy Porras MCHC (RBC) [Mass/Vol] 30.6 g/dL Normal 29.9-35.2 [facility] Comment on above: Performed By: #### C BC ####[facility] [address] [id number]. Jossy Porras MCV (RBC) [Entitic vol] 99.4 fL Critically high 80.0-94.0 [facility] Comment on above: Performed By: #### C BC ####[facility] [address] [address]Dr. Jossy Porras MONO # 0.1 103/ul Critically low 0.3-0.8 [facility] Comment on above: Performed By: #### C BC ####[facility] [address] [id number] Porras Monocytes/100 WBC (Bld) 1.4 % Critically low 1.7-12.0 [facility] Comment on above: Performed By: #### C BC ####[facility] [address] [id number] Porras NEUT # 7.1 103/ul Critically high 1.4-6.5 [facility] Comment on above: Performed By: #### C BC ####[facility] [address] [id number]. Jossy Porras Neutrophils/100 WBC (Bld) 90.7 % Critically high 43.0-75.0 [facility] Comment on above: Performed By: #### C BC ####[facility] [address] [id number]. Jossy Porras Platelet mean volume (Bld) [Entitic vol] 11.9 fL Normal 9.5-13.5 [facility] Comment on above: Performed By: #### C BC ####[facility] [address] [id number]. Jossy Porras PLT 156 103/ul Normal 150-450 [facility] Comment on above: Performed By: #### C BC ####[facility] [address] [id number]. Jossy Porras RBC 4.67 106/ul Critically low 4.70-6.10 [facility] Comment on above: Performed By: #### C BC ####[facility] [address] [id number]. Jossy Porras WBC 7.8 103/ul Normal 4.0-11.0 [facility] Comment on above: Performed By: #### C BC ####[facility] [address] [id number]. Jossy Porras CT CHEST WO CONon 06-08-2022 CT CHEST WO CON EXAMINATION: CT CHEST WO CON HISTORY: SHORTNESS OF BREATH COMPARISON: CT chest 12/13/2021 TECHNIQUE: Axial, Coronal, and Sagittal images were created without the administration of IV contrast material. Dose reduction techniques were achieved by using automated exposure control and/or adjustment of mA and/or kV according to patient size and/or use of iterative reconstruction technique. FINDINGS: LUNGS: Moderate emphysematous changes. No appreciable infiltrates or suspicious nodules. PLEURA: No mass, effusion, or pneumothorax. VASCULATURE: No abnormality. ASUNCION: No mass or adenopathy. MEDIASTINUM: No mass or adenopathy. CARDIAC: No enlargement or pericardial thickening. AORTA: No aneurysm or dissection. CHEST WALL: No mass or axillary adenopathy. BONES: No bone lesion or fracture. LIMITED ABDOMEN: No suspicious findings. Limited images of the upper abdomen. OTHER: Negative. IMPRESSION: 1. Moderate emphysematous changes. 2. No infiltrates or suspicious findings to account for acute symptoms. Electronically authenticated by: MARIBETH CEDILLO Date: 2022-06-08 10:52 Normal [facility] PROF 14(COMP METB)on 023 Albumin [Mass/Vol] 3.0 g/dL Critically low 3.4-5.0 [facility] Comment on above: Performed By: #### C VDTBH #### [facility] [address] [place] [address] Dr. Jossy Porras Albumin/Globulin [Mass ratio] 0.9 {ratio} Normal [facility] Comment on above: Performed By: #### C VDTBH #### [facility] [address] [place] [address] Dr. Jossy Porras ALP [Catalytic activity/Vol] 84 U/L Normal 46-116 [facility] Comment on above: Performed By: #### C VDTBH #### [facility] [address] [place] [address] Dr. Jossy Porras ALT [Catalytic activity/Vol] 40 U/L Normal 16-63 [facility] Comment on above: Performed By: #### C VDTBH #### [facility] [address] [place] [address] Dr. Jossy Porras Anion gap [Moles/Vol] 13.8 mmol/L Normal [facility] Comment on above: Performed By: #### C VDTBH #### [facility] [address] [place] [address] Dr. Jossy Porras AST [Catalytic activity/Vol] 30 U/L Normal 15-37 [facility] Comment on above: Performed By: #### C VDTBH #### [facility] [address] [place] [address] Dr. Jossy Porras Bilirubin [Mass/Vol] 0.5 mg/dL Normal 0.2-1.0 [facility] Comment on above: Performed By: #### C VDTBH #### [facility] [address] [address] [address] Jossy Porras Calcium [Mass/Vol] 8.6 mg/dL Normal 8.5-10.1 [facility] Comment on above: Performed By: #### C VDTBH #### [facility] [address] [address] [address] Jossy Porras Chloride [Moles/Vol] 103 mmol/L Normal 98-107 [facility] Comment on above: Performed By: #### C VDTBH #### [facility] [address] [place] [address] Dr. Jossy Porras CO2 [Moles/Vol] 28.0 mmol/L Normal 21.0-32.0 [facility] Comment on above: Performed By: #### C VDTBH #### [facility] [address] [place] [address] Dr. Jossy Porras Creatinine [Mass/Vol] 1.06 mg/dL Normal 0.70-1.30 [facility] Comment on above: Performed By: #### C VDTBH #### [facility] [address] [place] [address] Dr. Jossy Porras EGFR-AF ITALIAN >60 Normal >=60 [facility] Comment on above: Performed By: #### C VDTBH #### [facility] [address] [place] [address] Dr. Jossy Porras EGFR-NON AF ITALIAN >60 Normal >=60 [facility] Comment on above: Performed By: #### C VDTBH #### [facility] [address] [place] [address] Dr. Jossy Porras Globulin (S) [Mass/Vol] 3.5 g/dL Normal [facility] Comment on above: Performed By: #### C VDTBH #### [facility] [address] [place] [address] Dr. Jossy Porras Glucose [Mass/Vol] 137 mg/dL Critically high 74-106 [facility] Comment on above: Performed By: #### C VDTBH #### [facility] [address] [address] [address] Jossy Porras Potassium [Moles/Vol] 4.8 mmol/L Normal 3.5-5.1 [facility] Comment on above: Performed By: #### C VDTBH #### [facility] [address] [address] [address] Jossy Porras Protein [Mass/Vol] 6.5 g/dL Normal 6.4-8.2 [facility] Comment on above: Performed By: #### C VDTBH #### [facility] [address] [address] [address] Jossy Porras Sodium [Moles/Vol] 140 mmol/L Normal 136-145 [facility] Comment on above: Performed By: #### C VDTBH #### [facility] [address] [place] [address] Dr. Jossy Porras Urea nitrogen [Mass/Vol] 14.0 mg/dL Normal 7.0-18.0 [facility] Comment on above: Performed By: #### C VDTBH #### [facility] [address] [place] [address] Dr. Jossy Porras Urea nitrogen/Creatinine [Mass ratio] 13.2 mg/mg Normal [facility] Comment on above: Performed By: #### C VDTBH #### [facility] [address] [place] [address] Dr. Jossy Porras BNPon 06-07-2022 Natriuretic peptide B (Bld) [Mass/Vol] 82.0 pg/mL Normal <=900.0 [facility] Comment on above: Performed By: #### C MP, BNP, HSTROPN ####[facility] Pdvriccnri[address] [place], [place] [address]Dr. Jossy Porras CBC AUTO DIFFon 06-07-2022 BASO # 0.1 103/ul Normal 0.0-0.1 [facility] Comment on above: Performed By: #### C BC ####[facility] [address] [place], [place] [address]Dr. Jossy Porras Basophils/100 WBC (Bld) 0.6 % Normal 0.2-2.0 [facility] Comment on above: Performed By: #### C BC ####[facility] [address] [place] [address]Dr. Jossy Porras EO # 0.1 103/ul Normal 0.0-0.7 [facility] Comment on above: Performed By: #### C BC ####[facility] Hawfnmq[address] [place], [place] [address]Dr. Jossy Porras Eosinophils/100 WBC (Bld) 1.5 % Normal 0.9-7.0 [facility] Comment on above: Performed By: #### C BC ####[facility] [address] [place], [place] [address]Dr. Jossy Porras Erythrocyte distribution width (RBC) [Ratio] 13.4 % Normal 11.0-15.0 [facility] Comment on above: Performed By: #### C BC ####[facility] R[address] [place], [place] [address]Dr. Jossy Porras Hematocrit (Bld) [Volume fraction] 53.2 % Normal 42.0-54.0 [facility] Comment on above: Performed By: #### C BC ####[facility] [address] [place], [place] [address]Dr. Jossy Porras Hemoglobin (Bld) [Mass/Vol] 16.4 g/dL Normal 14.0-18.0 [facility] Comment on above: Performed By: #### C BC ####[facility] [address] [place], [place] [address]Dr. Jossy Porras IG # 0.03 10e3/ul Normal 0.00-0.03 [facility] Comment on above: Performed By: #### C BC ####[facility] [address] [place], [place] [address]Dr. Jossy Porras IG % 0.3 % Normal 0.0-0.5 [facility] Comment on above: Performed By: #### C BC ####[facility] [address] [place], [place] [id number]. Amiemyron Porras LYMPH # 2.8 103/ul Normal 1.2-3.8 [facility] Comment on above: Performed By: #### C BC ####[facility] [address] [place] [id number]. Amiemyron Porras Lymphocytes/100 WBC (Bld) 31.3 % Normal 20.5-60.0 [facility] Comment on above: Performed By: #### C BC ####[facility] [address] [place] [address]Dr. Jossy Porras MANUAL DIFF REQ NO Normal [facility] Comment on above: Performed By: #### C BC ####[facility] [address] [address]Dr. Jossy Vern MCH (RBC) [Entitic mass] 30.7 pg Normal 25.9-34.0 [facility] Comment on above: Performed By: #### C BC ####[facility] [address] [place] [address]Dr. Jossy Vern MCHC (RBC) [Mass/Vol] 30.8 g/dL Normal 29.9-35.2 [facility] Comment on above: Performed By: #### C BC ####[facility] [address] [place] [address]Dr. Jossy Porras MCV (RBC) [Entitic vol] 99.6 fL Critically high 80.0-94.0 [facility] Comment on above: Performed By: #### C BC ####[facility] [address] [place] [address]Dr. Jossy Porras MONO # 0.5 103/ul Normal 0.3-0.8 [facility] Comment on above: Performed By: #### C BC ####[facility] [address] [place] [address]Dr. Jossy Porras Monocytes/100 WBC (Bld) 5.9 % Normal 1.7-12.0 [facility] Comment on above: Performed By: #### C BC ####[facility] [address] [place], [place] [address]Dr. Jossy Porras NEUT # 5.3 103/ul Normal 1.4-6.5 [facility] Comment on above: Performed By: #### C BC ####[facility] [address] [place] [address]Dr. Jossy Porras Neutrophils/100 WBC (Bld) 60.4 % Normal 43.0-75.0 [facility] Comment on above: Performed By: #### C BC ####[facility] [address] [place] [address]Dr. Jossy Porras Platelet mean volume (Bld) [Entitic vol] 12.2 fL Normal 9.5-13.5 [facility] Comment on above: Performed By: #### C BC ####[facility] [address] [place] [address]Dr. Jossy Porras PLT 199 103/ul Normal 150-450 [facility] Comment on above: Performed By: #### C BC ####[facility] [address] [place] [address]Dr. Jossy Porras RBC 5.34 106/ul Normal 4.70-6.10 [facility] Comment on above: Performed By: #### C BC ####[facility] H[address] [place], [place] [address]DrSal Porras WBC 8.8 103/ul Normal 4.0-11.0 [facility] Comment on above: Performed By: #### C BC ####[facility] [address] [place] [id number]. Jossy Porras CULTURE BLOODon 06-07-2022 Microscopic examination of blood, culture Culture Observations: NO GROWTH AT 5 DAYS. Normal [facility] Comment on above: Performed By: #### B LDCX2 #### [facility] [id number] Jossy Porras Microscopic examination of blood, culture Culture Observations: NO GROWTH AT 5 DAYS. Normal [facility] Comment on above: Performed By: #### B LDCX1 ####[facility] [address] [place] [address]Dr. Jossy Porras Covid-19 PCR (CVDTBH)on SARS-CoV-2 (COVID-19) RNA ANGELA+probe Ql (Unsp spec) Not detected Normal NOT DETECTED [facility] Comment on above: Result Comment: When diagnostic testing is negative, the possibility of a false negative should be considered in the context of a patient's recent exposures and the presence of clinical signs and symptoms consistent with SARS-CoV-2. This test is not yet approved or cleared by the [place] FDA. When there are no FDA-approved or cleared tests available, and other criteria are met, FDA can make tests available under an emergency access mechanism called an Emergency Use Authorization (EUA). The EUA for this test is supported by the Head Of Design of Health and Human Service's declaration that circumstances exist to justify the emergency use of in vitro diagnostics for the detection and/or diagnosis of the virus that causes COVID-19. This EUA will remain in effect for the duration of the COVID-19 declaration justifying emergency of IVDs, unless it is terminated or revoked by the FDA (after which the test may no longer be used). Performed By: #### C VDTBH ####[facility] [address] [place] [id number]. Jossy Porras LACTATE/LACTIC ACIDon 2022 Lactate [Moles/Vol] 1.7 mmol/L Normal 0.4-1.9 [facility] Comment on above: Performed By: #### L ACT #### [facility] [address] [address] [address] Jossy Porras Lactate [Moles/Vol] 2.1 mmol/L Critically high 0.4-1.9 [facility] Comment on above: Performed By: #### C BC #### [facility] [address] [address] [address] Jossy Porras PROF 14(COMP METB)on 023 Albumin [Mass/Vol] 3.4 g/dL Normal 3.4-5.0 [facility] Comment on above: Performed By: #### C MP, BNP, HSTROPN ####[facility] [address] [place] [address]Dr. Jossy Porras Albumin/Globulin [Mass ratio] 0.9 {ratio} Normal [facility] Comment on above: Performed By: #### C MP, BNP, HSTROPN ####[facility] [address] [place] [address]Dr. Jossy Porras ALP [Catalytic activity/Vol] 91 U/L Normal 46-116 [facility] Comment on above: Performed By: #### C MP, BNP, HSTROPN ####[facility] [address]pe[address] [place], [place] [address]Dr. Jossy Porras ALT [Catalytic activity/Vol] 52 U/L Normal 16-63 [facility] Comment on above: Performed By: #### C MP, BNP, HSTROPN ####[facility] [address] [place] [address]Dr. Jossy Porras Anion gap [Moles/Vol] 10.0 mmol/L Normal [facility] Comment on above: Performed By: #### C MP, BNP, HSTROPN ####[facility] [address] [place], [place] [address]Dr. Jossy Vern AST [Catalytic activity/Vol] 30 U/L Normal 15-37 [facility] Comment on above: Performed By: #### C MP, BNP, HSTROPN ####[facility] [address]xw[address] [place], [place] [address]Dr. Jossy Porras Bilirubin [Mass/Vol] 0.4 mg/dL Normal 0.2-1.0 [facility] Comment on above: Performed By: #### C MP, BNP, HSTROPN ####[facility] F[address]gb[address]ewiq[address] [place], [place] [address]Dr. Jossy Porras Calcium [Mass/Vol] 8.8 mg/dL Normal 8.5-10.1 [facility] Comment on above: Performed By: #### C MP, BNP, HSTROPN ####[facility] [address] [place], [place] [address]Dr. Jossy Porras Chloride [Moles/Vol] 102 mmol/L Normal 98-107 [facility] Comment on above: Performed By: #### C MP, BNP, HSTROPN ####[facility] [address] [place] [address]Dr. Jossy Porras CO2 [Moles/Vol] 35.7 mmol/L Critically high 21.0-32.0 [facility] Comment on above: Performed By: #### C MP, BNP, HSTROPN ####[facility] N[address] [place], [place] [address]Dr. Jossy Porras Creatinine [Mass/Vol] 1.06 mg/dL Normal 0.70-1.30 [facility] Comment on above: Performed By: #### C MP, BNP, HSTROPN ####[facility] [address] [place], [place] [address]Dr. Jossy Porras EGFR-AF ITALIAN >60 Normal >=60 [facility] Comment on above: Performed By: #### C MP, BNP, HSTROPN ####[facility] [address]ty[address]cpu[address] [place], [place] [address]Dr. Jossy Porras EGFR-NON AF ITALIAN >60 Normal >=60 [facility] Comment on above: Performed By: #### C MP, BNP, HSTROPN ####[facility] [address] [place], [place] [address]Dr. Jossy Porras Globulin (S) [Mass/Vol] 3.8 g/dL Normal [facility] Comment on above: Performed By: #### C MP, BNP, HSTROPN ####[facility] [address] [place], [place] [address]Dr. Jossy Porras Glucose [Mass/Vol] 107 mg/dL Critically high 74-106 [facility] Comment on above: Performed By: #### C MP, BNP, HSTROPN ####[facility] [address] [place], [place] [address]Dr. Jossy Porras Potassium [Moles/Vol] 3.7 mmol/L Normal 3.5-5.1 [facility] Comment on above: Performed By: #### C MP, BNP, HSTROPN ####[facility] [address] [place] [address]Dr. Jossy Porras Protein [Mass/Vol] 7.2 g/dL Normal 6.4-8.2 [facility] Comment on above: Performed By: #### C MP, BNP, HSTROPN ####[facility] [address] [place] [address]Dr. Jossy Porras Sodium [Moles/Vol] 144 mmol/L Normal 136-145 [facility] Comment on above: Performed By: #### C MP, BNP, HSTROPN ####[facility] [address]ays[address] [place] [address]Dr. Jossy Porras Urea nitrogen [Mass/Vol] 12.0 mg/dL Normal 7.0-18.0 [facility] Comment on above: Performed By: #### C MP, BNP, HSTROPN ####[facility] Kylun[address] [place], [place] [address]Dr. Jossy Porras Urea nitrogen/Creatinine [Mass ratio] 11.3 mg/mg Normal [facility] Comment on above: Performed By: #### C MP, BNP, HSTROPN ####[facility] [address] [place] [address]Dr. Jossy Porras PROTIMEon 06-07-2022 INR Coag (PPP) [Relative time] 1.02 {INR} Normal [facility] Comment on above: Performed By: #### P T ####[facility] [address] [place], [place] [address]Dr. Jossy Porras INR GUIDELINES SEE BELOW Normal [facility] Comment on above: Result Comment: DARLEEN RED INR: 2.0 - 3.0 CONDITIONS NOT LISTED BELOW 2.5 - 3.5 FOR PROSTHETIC HEART VALVE REPLACEMENT 2.5 - 3.5 RECURRENT THROMBOSIS Performed By: #### P T ####[facility] Od[address] [place], [place] [address]Dr. Jossy Porras PT Coag (PPP) [Time] 10.8 s Normal 9.0-11.6 [facility] Comment on above: Performed By: #### P T ####[facility] [address] [place] [address]Dr. Jossy Porras TROPONIN, HIGH SENSITIVITYon 06-07-2022 HSTROP 22.5 pg/mL Normal 4.0-76.1 [facility] Comment on above: Result Comment: CUT- OFF POINTS HAVE BEEN ESTABLISHED BASED ON THE FOURTH UNIVERSAL DEFINITIONS OF MYOCARDIAL INFARCTION. THE UPPER REFERENCE LIMIT (URL) OF TROPONIN, DEFINED THE 99TH PERCENTILE OF cTnI DISTRIBUTION IN A REFERENCE POPULATION, HAS BEEN CONFIRMED THE DECISION THRESHOLD FOR UT DIAGNOSIS. Performed By: #### C MP, BNP, HSTROPN ####[facility] [address] [place] [address]Dr. Jossy Porras XR CHEST 1 Von 06-07-2022 XR CHEST 1 V EXAMINATION: XR CHEST 1 V, , 06/07/2022 5:18 PM EST INDICATION: SHORTNESS OF BREATH HISTORY: Ordering Provider Reason for Exam: Technologist Note: Additional: COMPARISON: Chest x-ray dated 05/13/2022. TECHNIQUE: Chest x-ray: One view. FINDINGS: No pneumothorax, pleural effusion or focal airspace consolidation. Heart is normal in size. Bony thorax is unremarkable. IMPRESSION: No acute cardiopulmonary process. Electronically authenticated by: JEANNIE GUERRERO Date: 2022-06-07 19:09 Normal [facility] BNPon 05-13-2022 Natriuretic peptide B (Bld) [Mass/Vol] 92.0 pg/mL Normal <=900.0 [facility] Comment on above: Performed By: #### C VDTB #### [facility] [address] [address] [address] Jossy Porras CARDIAC SRIDHAR ADMITon 023 CK [Catalytic activity/Vol] 55 U/L Normal 39-308 [facility] Comment on above: Performed By: #### C VDTBH #### [facility] [address] [address] [address] Jossy Porras CK.MB [Mass/Vol] 1.07 ng/mL Normal <=3.60 [facility] Comment on above: Performed By: #### C VDTBH #### [facility] [address] [place] [address] Dr. Jossy Porras HSTROP 20.2 pg/mL Normal 4.0-76.1 [facility] Comment on above: Result Comment: CUT- OFF POINTS HAVE BEEN ESTABLISHED BASED ON THE FOURTH UNIVERSAL DEFINITIONS OF MYOCARDIAL INFARCTION. THE UPPER REFERENCE LIMIT (URL) OF TROPONIN, DEFINED THE 99TH PERCENTILE OF cTnI DISTRIBUTION IN A REFERENCE POPULATION, HAS BEEN CONFIRMED THE DECISION THRESHOLD FOR UT DIAGNOSIS. Performed By: #### C VDTBH #### [facility] [address] [place] [address] Dr. Jossy Porras CLEMENT 57 ng/mL Normal 16-96 [facility] Comment on above: Performed By: #### C VDTBH #### [facility] [address] [place] [address] Dr. Jossy Porras CBC AUTO DIFFon 05-13-2022 BASO # 0.1 103/ul Normal 0.0-0.1 [facility] Comment on above: Performed By: #### C VDTBH #### [facility] [address] [place] [address] Dr. Jossy Porras Basophils/100 WBC (Bld) 0.7 % Normal 0.2-2.0 [facility] Comment on above: Performed By: #### C VDTBH #### [facility] [address] [place] [address] Dr. Jossy Porras EO # 0.1 103/ul Normal 0.0-0.7 [facility] Comment on above: Performed By: #### C VDTBH #### [facility] [address] [place] [address] Dr. Jossy Porras Eosinophils/100 WBC (Bld) 1.6 % Normal 0.9-7.0 [facility] Comment on above: Performed By: #### C VDTBH #### [facility] [address] [place] [address] Dr. Jossy Porras Erythrocyte distribution width (RBC) [Ratio] 13.1 % Normal 11.0-15.0 [facility] Comment on above: Performed By: #### C VDTBH #### [facility] [address] [place] [address] Dr. Jossy Porras Hematocrit (Bld) [Volume fraction] 52.8 % Normal 42.0-54.0 [facility] Comment on above: Performed By: #### C VDTBH #### [facility] [address] [place] [address] Dr. Jossy Porras Hemoglobin (Bld) [Mass/Vol] 16.5 g/dL Normal 14.0-18.0 [facility] Comment on above: Performed By: #### C VDTBH #### [facility] [address] [place] [address] Dr. Jossy Porras IG # 0.02 10e3/ul Normal 0.00-0.03 [facility] Comment on above: Performed By: #### C VDTBH #### [facility] [address] [place] [address] Dr. Jossy Porras IG % 0.3 % Normal 0.0-0.5 [facility] Comment on above: Performed By: #### C VDTBH #### [facility] [address] [place] [address] Dr. Jossy Porras LYMPH # 2.2 103/ul Normal 1.2-3.8 [facility] Comment on above: Performed By: #### C VDTBH #### [facility] [address] [place] [address] Dr. Jossy Porras Lymphocytes/100 WBC (Bld) 32.3 % Normal 20.5-60.0 [facility] Comment on above: Performed By: #### C VDTBH #### [facility] [address] [place] [address] Dr. Jossy Porras MANUAL DIFF REQ NO Normal [facility] Comment on above: Performed By: #### C VDTBH #### [facility] [address] [place] [address] Dr. Jossy Porras MCH (RBC) [Entitic mass] 30.8 pg Normal 25.9-34.0 [facility] Comment on above: Performed By: #### C VDTBH #### [facility] [address] [place] [address] Dr. Jossy Porras MCHC (RBC) [Mass/Vol] 31.3 g/dL Normal 29.9-35.2 [facility] Comment on above: Performed By: #### C VDTBH #### [facility] [address] [place] [address] Dr. Jossy Porras MCV (RBC) [Entitic vol] 98.5 fL Critically high 80.0-94.0 [facility] Comment on above: Performed By: #### C VDTBH #### [facility] [address] [place] [address] Dr. Jossy Porras MONO # 0.4 103/ul Normal 0.3-0.8 [facility] Comment on above: Performed By: #### C VDTBH #### [facility] [address] [place] [address] Dr. Jossy Porras Monocytes/100 WBC (Bld) 6.4 % Normal 1.7-12.0 [facility] Comment on above: Performed By: #### C VDTBH #### [facility] [address] [place] [address] Dr. Jossy Porras NEUT # 4.1 103/ul Normal 1.4-6.5 [facility] Comment on above: Performed By: #### C VDTBH #### [facility] [address] [place] [address] Dr. Jossy Porras Neutrophils/100 WBC (Bld) 58.7 % Normal 43.0-75.0 [facility] Comment on above: Performed By: #### C VDTBH #### [facility] [address] [place] [address] Dr. Jossy Porras Platelet mean volume (Bld) [Entitic vol] 12.1 fL Normal 9.5-13.5 [facility] Comment on above: Performed By: #### C VDTBH #### [facility] [address] [place] [address] Dr. Jossy Porras PLT 180 103/ul Normal 150-450 [facility] Comment on above: Performed By: #### C VDTBH #### [facility] [address] [place] [address] Dr. Jossy Porras RBC 5.36 106/ul Normal 4.70-6.10 [facility] Comment on above: Performed By: #### C VDTBH #### [facility] [address] [place] [address] Dr. Jossy Porras WBC 6.9 103/ul Normal 4.0-11.0 [facility] Comment on above: Performed By: #### C VDTBH #### [facility] [address] [place] [address] Dr. Jossy Porras CULTURE BLOODon 05-13-2022 Microscopic examination of blood, culture Culture Observations: NO GROWTH AT 5 DAYS. Normal [facility] Comment on above: Performed By: #### B LDCX2 #### [facility] [address] [place] [address] Dr. Jossy Porras Performed By: #### B LDCX1 #### [facility] [address] [place] [address] Dr. Jossy Porras [facility] 05-03 SARS-CoV-2 (COVID-19) RNA ANGELA+probe Ql (Unsp spec) Not detected Normal NOT DETECTED [facility] Comment on above: Result Comment: When diagnostic testing is negative, the possibility of a false negative should be considered in the context of a patient's recent exposures and the presence of clinical signs and symptoms consistent with SARS-CoV-2. This test is not yet approved or cleared by the [place] FDA. When there are no FDA-approved or cleared tests available, and other criteria are met, FDA can make tests available under an emergency access mechanism called an Emergency Use Authorization (EUA). The EUA for this test is supported by the Head Of Design of Health and Human Service's declaration that circumstances exist to justify the emergency use of in vitro diagnostics for the detection and/or diagnosis of the virus that causes COVID-19. This EUA will remain in effect for the duration of the COVID-19 declaration justifying emergency of IVDs, unless it is terminated or revoked by the FDA (after which the test may no longer be used). Performed By: #### C VDTBH #### [facility] [address] [place] [address] Dr. Jossy Porras INFLUENZA A AND B AGon 05-13 INFLUANEGH SEE BELOW Normal [facility] Comment on above: Result Comment: Nega tive for Flu A protein angiten. Infection due to Flu A cannot be ruled out. Flu A angiten in the sample may be below the detection limit of the test. Performed By: #### I NFLUAB ####[facility] [address] [place] [address]Dr. Jossy Porras INFLUBNEG SEE BELOW Normal [facility] Comment on above: Result Comment: Nega tive for Flu B protein antigen. Infection due to Flu B cannot be ruled out. Flu B antigen in the sample may be below the detection limit of the test. Performed By: #### I NFLUAB ####[facility] [address] [place], [place] [address]DrSal Porras INFLUENZA A AG Negative Normal NEGATIVE SEE COMMENT [facility] Comment on above: Performed By: #### I NFLUAB ####[facility] [address] [place], [place] [address]Dr. Jossy Porras INFLUENZA B AG Negative Normal NEGATIVE SEE COMMENT [facility] Comment on above: Performed By: #### I NFLUAB ####[facility] [address] [address]DrSal Porras LACTATE/LACTIC ACIDon 2022 Lactate [Moles/Vol] 1.4 mmol/L Normal 0.4-1.9 [facility] Comment on above: Performed By: #### C VDTBH #### [facility] [address] [place] [address] Dr. Jossy Porras PROF 14(COMP METB)on 023 Albumin [Mass/Vol] 3.6 g/dL Normal 3.4-5.0 [facility] Comment on above: Performed By: #### C VDTBH #### [facility] [address] [place] [address] Dr. Jossy Porras Albumin/Globulin [Mass ratio] 1.0 {ratio} Normal [facility] Comment on above: Performed By: #### C VDTBH #### [facility] [address] [place] [address] Dr. Jossy Porras ALP [Catalytic activity/Vol] 97 U/L Normal 46-116 [facility] Comment on above: Performed By: #### C VDTBH #### [facility] [address] [address] [address] Jossy Porras ALT [Catalytic activity/Vol] 32 U/L Normal 16-63 [facility] Comment on above: Performed By: #### C VDTBH #### [facility] [address] [place] [address] Dr. Jossy Porras Anion gap [Moles/Vol] 7.0 mmol/L Normal [facility] Comment on above: Performed By: #### C VDTBH #### [facility] [address] [place] [address] Dr. Jossy Porras AST [Catalytic activity/Vol] 28 U/L Normal 15-37 [facility] Comment on above: Performed By: #### C VDTBH #### [facility] [address] [place] [address] Dr. Jossy Porras Bilirubin [Mass/Vol] 0.4 mg/dL Normal 0.2-1.0 [facility] Comment on above: Performed By: #### C VDTBH #### [facility] [address] [place] [address] Dr. Jossy Porras Calcium [Mass/Vol] 9.0 mg/dL Normal 8.5-10.1 [facility] Comment on above: Performed By: #### C VDTBH #### [facility] [address] [address] [address] Jossy Porras Chloride [Moles/Vol] 102 mmol/L Normal 98-107 [facility] Comment on above: Performed By: #### C VDTBH #### [facility] [address] [place] [address] Dr. Jossy Porras CO2 [Moles/Vol] 34.3 mmol/L Critically high 21.0-32.0 [facility] Comment on above: Performed By: #### C VDTBH #### [facility] [address] [address] [address] Jossy Porras Creatinine [Mass/Vol] 0.91 mg/dL Normal 0.70-1.30 [facility] Comment on above: Performed By: #### C VDTBH #### [facility] [address] [address] [address] Jossy Porras EGFR-AF ITALIAN >60 Normal >=60 [facility] Comment on above: Performed By: #### C VDTBH #### [facility] [address] [address] [address] Jossy Porras EGFR-NON AF ITALIAN >60 Normal >=60 [facility] Comment on above: Performed By: #### C VDTBH #### [facility] [address] [address] [address] Jossy Porras Globulin (S) [Mass/Vol] 3.6 g/dL Normal [facility] Comment on above: Performed By: #### C VDTBH #### [facility] [address] [address] [address] Jossy Porras Glucose [Mass/Vol] 123 mg/dL Critically high 74-106 [facility] Comment on above: Performed By: #### C VDTBH #### [facility] [address] [address] [address] Jossy Porras Potassium [Moles/Vol] 4.3 mmol/L Normal 3.5-5.1 [facility] Comment on above: Performed By: #### C VDTBH #### [facility] [address] [address] [address] Jossy Porras Protein [Mass/Vol] 7.2 g/dL Normal 6.4-8.2 [facility] Comment on above: Performed By: #### C VDTBH #### [facility] [address] [address] [address] Jossy Porras Sodium [Moles/Vol] 139 mmol/L Normal 136-145 [facility] Comment on above: Performed By: #### C VDTBH #### [facility] [address] [address] [address] Jossy Porras Urea nitrogen [Mass/Vol] 11.0 mg/dL Normal 7.0-18.0 [facility] Comment on above: Performed By: #### C VDTBH #### [facility] [address] [place] [address] Dr. Jossy Porras Urea nitrogen/Creatinine [Mass ratio] 12.1 mg/mg Normal [facility] Comment on above: Performed By: #### C VDTBH #### [facility] [address] [place] [address] Dr. Jossy Porras PROTIMEon 05-13-2022 INR Coag (PPP) [Relative time] 1.01 {INR} Normal [facility] Comment on above: Performed By: #### C BC #### [facility] [address] [place] [address] Dr. Jossy Porras INR GUIDELINES SEE BELOW Normal [facility] Comment on above: Result Comment: DARLEEN RED INR: 2.0 - 3.0 CONDITIONS NOT LISTED BELOW 2.5 - 3.5 FOR PROSTHETIC HEART VALVE REPLACEMENT 2.5 - 3.5 RECURRENT THROMBOSIS Performed By: #### C BC #### [facility] [address] [place] [address] Dr. Jossy Porras PT Coag (PPP) [Time] 10.7 s Normal 9.0-11.6 [facility] Comment on above: Performed By: #### C BC #### [facility] [address] [place] [address] Dr. Jossy Porras PTTon 05-13-2022 aPTT Coag (Bld) [Time] 25.9 s Normal 22.3-36.2 [facility] Comment on above: Performed By: #### C BC #### [facility] [address] [place] [address] Dr. Jossy Porras XR CHEST 1 Von 05-13-2022 XR CHEST 1 V EXAM: XR CHEST 1 V at 1623 hours HISTORY: SHORTNESS OF BREATH COMPARISON: 12/13/2021 TECHNIQUE: AP upright portable chest x-ray FINDINGS: The heart is not enlarged and the vasculature is not distended. No acute infiltrate, effusion or pneumothorax is identified. The osseous structures are grossly intact. IMPRESSION: No acute infiltrate or evidence of cardiac decompensation. The overall appearance of the chest is unchanged. Electronically authenticated by: NIELS BERNAL Date: 2022-05-13 17:04 Normal [facility] HEMOGLOBINon 02-16-2022 Hemoglobin (Bld) [Mass/Vol] 16.9 g/dL Normal 14.0-18.0 [facility] Comment on above: Performed By: #### C BC #### [facility] [address] [place] [address] Dr. Jossy Porras BNPon 12-13-2021 Natriuretic peptide B (Bld) [Mass/Vol] 166.0 pg/mL Normal <=900.0 [facility] Comment on above: Performed By: #### C BC #### [facility] [address] [place] [address] Dr. Jossy Porras CARDIAC SRIDHAR ADMITon 022 CK [Catalytic activity/Vol] 30 U/L Critically low 39-308 [facility] Comment on above: Performed By: #### C BC #### [facility] [address] [place] [address] Dr. Jossy Porras CK.MB [Mass/Vol] 1.20 ng/mL Normal <=3.60 [facility] Comment on above: Performed By: #### C BC #### [facility] [address] [place] [address] Dr. Jossy Porras HSTROP 27.9 pg/mL Normal 4.0-76.1 [facility] Comment on above: Result Comment: CUT- OFF POINTS HAVE BEEN ESTABLISHED BASED ON THE FOURTH UNIVERSAL DEFINITIONS OF MYOCARDIAL INFARCTION. THE UPPER REFERENCE LIMIT (URL) OF TROPONIN, DEFINED THE 99TH PERCENTILE OF cTnI DISTRIBUTION IN A REFERENCE POPULATION, HAS BEEN CONFIRMED THE DECISION THRESHOLD FOR UT DIAGNOSIS. Performed By: #### C BC #### [facility] [address] [place] [address] Dr. Jossy Porras CLEMENT 44 ng/mL Normal 16-96 [facility] Comment on above: Performed By: #### C BC #### [facility] [address] [place], [place] [address] Dr. Jossy Porras CBC AUTO DIFFon 12-13-2021 BASO # 0.0 103/ul Normal 0.0-0.1 [facility] Comment on above: Performed By: #### C BC ####[facility] [address] [place] [address]DrSal Porras Basophils/100 WBC (Bld) 0.3 % Normal 0.2-2.0 [facility] Comment on above: Performed By: #### C BC ####[facility] [address] [address]Dr. Jossy Porras EO # 0.2 103/ul Normal 0.0-0.7 [facility] Comment on above: Performed By: #### C BC ####[facility] [address] [place] [address]DrSal Porras Eosinophils/100 WBC (Bld) 1.3 % Normal 0.9-7.0 [facility] Comment on above: Performed By: #### C BC ####[facility] [address] [place], [place] [address]DrSal Porras Erythrocyte distribution width (RBC) [Ratio] 14.1 % Normal 11.0-15.0 [facility] Comment on above: Performed By: #### C BC ####[facility] [address] [place] [address]Dr. Jossy Porras Hematocrit (Bld) [Volume fraction] 50.9 % Normal 42.0-54.0 [facility] Comment on above: Performed By: #### C BC ####[facility] [address] [place], [place] [address]DrSal Porras Hemoglobin (Bld) [Mass/Vol] 16.4 g/dL Normal 14.0-18.0 [facility] Comment on above: Performed By: #### C BC ####[facility] [address] [place], [place] [address]Dr. Jossy Porras IG # 0.08 10e3/ul Critically high 0.00-0.03 [facility] Comment on above: Performed By: #### C BC ####[facility] [address] [place] [address]DrSal Jossy Vern IG % 0.7 % Critically high 0.0-0.5 [facility] Comment on above: Performed By: #### C BC ####[facility] [address] [place] [address]DrSal Porras LYMPH # 3.2 103/ul Normal 1.2-3.8 [facility] Comment on above: Performed By: #### C BC ####[facility] [address] [place] [address]DrSal Porras Lymphocytes/100 WBC (Bld) 27.6 % Normal 20.5-60.0 [facility] Comment on above: Performed By: #### C BC ####[facility] [address] [place] [address]DrSal Porras MANUAL DIFF REQ NO Normal [facility] Comment on above: Performed By: #### C BC ####[facility] [address] [place] [address]DrSal Jossy Vern MCH (RBC) [Entitic mass] 31.1 pg Normal 25.9-34.0 [facility] Comment on above: Performed By: #### C BC ####[facility] [address] [place] [address]DrSal Porras MCHC (RBC) [Mass/Vol] 32.2 g/dL Normal 29.9-35.2 [facility] Comment on above: Performed By: #### C BC ####[facility] [address] [place] [address]DrSal Porras MCV (RBC) [Entitic vol] 96.6 fL Critically high 80.0-94.0 [facility] Comment on above: Performed By: #### C BC ####[facility] [address] [place], [place] [address]DrSal Porras MONO # 0.8 103/ul Normal 0.3-0.8 [facility] Comment on above: Performed By: #### C BC ####[facility] [address] [place] [id number]. Jossy Porras Monocytes/100 WBC (Bld) 6.7 % Normal 1.7-12.0 [facility] Comment on above: Performed By: #### C BC ####[facility] [address] [place] [id number]. Jossy Porras NEUT # 7.3 103/ul Critically high 1.4-6.5 [facility] Comment on above: Performed By: #### C BC ####[facility] [address] [place] [address]Dr. Jossy Porras Neutrophils/100 WBC (Bld) 63.4 % Normal 43.0-75.0 [facility] Comment on above: Performed By: #### C BC ####[facility] [address] [place] [address]Dr. Jossy Porras Platelet mean volume (Bld) [Entitic vol] 11.2 fL Normal 9.5-13.5 [facility] Comment on above: Performed By: #### C BC ####[facility] [address] [place], [place] [address]Dr. Jossy Porras PLT 213 103/ul Normal 150-450 [facility] Comment on above: Performed By: #### C BC ####[facility] [address] [place] [id number]. Jossy Porras RBC 5.27 106/ul Normal 4.70-6.10 [facility] Comment on above: Performed By: #### C BC ####[facility] [address] [place] [id number]. Jossy Porras WBC 11.6 103/ul Critically high 4.0-11.0 [facility] Comment on above: Performed By: #### C BC ####[facility] [address] [place] [id number]. Jossy Porras CTA CHEST WO W CONon 022 CTA CHEST WO W CON CTA CHEST WITH IV CONTRAST CTA CHEST CECILIA BROWN, DATE: 12/13/2021 3:14 PM EDT HISTORY: SHORTNESS OF BREATH in a 65-year-old male COMPARISON: Chest x-ray dated 12/13/2021 TECHNIQUE: Multiple axial images are taken from the level of the thyroid down through the upper abdomen with and without the use of IV contrast. Images are then reconstructed in the sagittal and coronal planes. This exam was performed according to our departmental dose-optimization program which includes use of Automated Exposure Control, adjustment of the mA and/or kV according to patient size and/or use of iterative reconstruction technique. Postprocessing was performed for CTA with the following as per hospital protocol: Maximum intensity projection (MIPs) Contrast Used: 75 mL of Omnipaque 350 FINDINGS: Lungs: Emphysematous changes with bronchiectasis are demonstrated. Focal infiltrate seen on coronal image 53. Please correlate for pneumonia. Pulmonary 4 mm nodule seen on coronal image 53 Pleura: No pneumothorax. No pneumomediastinum. No effusion Thyroid: Normal Mediastinum: Aorta: Normal. Pulmonary artery: Normal. No pulmonary embolus, allowing for bolus timing. Heart: Normal. Trachea/Bronchi: Well aerated. No intraluminal masses. Esophagus: Decompressed which limits evaluation. Normal for the lack of distention. Lymph Nodes: Normal. Chest wall: Normal. Axilla: Normal. Osseous Structures: Normal for patient's age. Subdiaphragm: The subdiaphragmatic abdominal organs included in the [id number] do not demonstrate any acute abnormality. IMPRESSION: 1. No CT evidence for acute pulmonary embolus. 2. Emphysema with bronchiectasis. Focal infiltrate seen on coronal image 53. Please correlate for pneumonia. 3. Pulmonary 4 mm nodule seen on coronal image 53. Follow-up CT scan in one year. 4. Hepatic steatosis with hepatomegaly. FLEISCHNER CRITERIA 2017: SOLID NODULES Single Single solid nodule <6 mm (<100 mm3) low-risk patients: no routine follow-up required high-risk patients: optional CT at 12 months (particularly with suspicious nodule morphology and/or upper lobe location; see risk assessment below) Solitary solid nodule 6-8 mm (100-250 mm3) low-risk patients: CT at 6-12 months, then consider CT at 18-24 months high-risk patients: CT at 6-12 months, then CT at 18-24 months Solitary solid nodule >8 mm (>250 mm3) low-risk and high-risk patients: consider CT at 3 months, PET/CT, or tissue sampling Guideline Exclusions * patients aged 35 years or younger * patients with known malignancy * immunocompromised patients * lung cancer screening population FLEISCHNER SOCIETY 2017 GUIDELINES FOR PULMONARY NODULES: Low risk: no (or minimal) smoking history, no prior cancer, smooth margin nodule High risk: Heavy smoking history, emphysema/pulmonary fibrosis, prior cancer, irregular margins More information on the management of solid pulmonary nodules can be found at: http://pubs.rsna.org /doi/abs/10.1148/rad iol.8946657483 ------- Sunny Citation: Information used in this report was referenced from the following. Guidelines for Management of Incidental Pulmonary Nodules Detected on CT Images: From the Fleischner Society 2017 Radiology. 2017 Rubens;284(1):228-243. doi: 10.1148/radiol.[id number] 03329. Epub 2016Jun 25. Electronically authenticated by: CARLA DANIELLE Date: 2021-12-13 16:37 Normal [facility] Covid-19 PCR (CVDTB)on 12-01 SARS-CoV-2 (COVID-19) RNA ANGELA+probe Ql (Unsp spec) Not detected Normal NOT DETECTED [facility] Comment on above: Result Comment: When diagnostic testing is negative, the possibility of a false negative should be considered in the context of a patient's recent exposures and the presence of clinical signs and symptoms consistent with SARS-CoV-2. This test is not yet approved or cleared by the [place] FDA. When there are no FDA-approved or cleared tests available, and other criteria are met, FDA can make tests available under an emergency access mechanism called an Emergency Use Authorization (EUA). The EUA for this test is supported by the Head Of Design of Health and Human Service's declaration that circumstances exist to justify the emergency use of in vitro diagnostics for the detection and/or diagnosis of the virus that causes COVID-19. This EUA will remain in effect for the duration of the COVID-19 declaration justifying emergency of IVDs, unless it is terminated or revoked by the FDA (after which the test may no longer be used). Performed By: #### C BC #### [facility] [address] [address] [address] Jossy Porras D-DIMERon 12-13-2021 D-DIMER 1.68 mg/L FEU Critically high <=0.59 [facility] Comment on above: Performed By: #### D DIM ####[facility] [address] [place] [id number]. Jossy Porras D-DIMER COMMENTS SEE BELOW Normal [facility] Comment on above: Result Comment: Incr eases in D-Dimer concentration observed with thromboembolic events can be variable due to localization, size, and age of the thrombus. Therefore, a thromboembolic event cannot be diagnosed with certainty on the basis of the reference range. D-Dimers may also be elevated for a variety of disorders including: advanced age, , coronary disease, cancer, liver disease, infection, inflammation, hematoma, DIC, trauma, post-surgery, diabetes, thrombolytic or anticoagulant therapy, stress, and generalized hospitalization. Performed By: #### D DIM ####[facility] [address] [place] [id number]. Jossy Porras PROF 14(COMP METB)on 022 Albumin [Mass/Vol] 3.4 g/dL Normal 3.4-5.0 [facility] Comment on above: Performed By: #### C VDTBH #### [facility] [address] [place] [address] Dr. Jossy Porras Albumin/Globulin [Mass ratio] 0.7 {ratio} Normal [facility] Comment on above: Performed By: #### C VDTBH #### [facility] [address] [place] [address] Dr. Jossy Porras ALP [Catalytic activity/Vol] 132 U/L Critically high 46-116 [facility] Comment on above: Performed By: #### C VDTBH #### [facility] [address] [address] [address] Jossy Porras ALT [Catalytic activity/Vol] 65 U/L Critically high 16-63 [facility] Comment on above: Performed By: #### C VDTBH #### [facility] [address] [place] [address] Dr. Jossy Porras Anion gap [Moles/Vol] 10.8 mmol/L Normal [facility] Comment on above: Performed By: #### C VDTBH #### [facility] [address] [place] [address] Dr. Jossy Porras AST [Catalytic activity/Vol] 26 U/L Normal 15-37 [facility] Comment on above: Performed By: #### C VDTBH #### [facility] [address] [place] [address] Dr. Jossy Porras Bilirubin [Mass/Vol] 0.6 mg/dL Normal 0.2-1.0 [facility] Comment on above: Performed By: #### C VDTBH #### [facility] [address] [place] [address] Dr. Jossy Porras Calcium [Mass/Vol] 8.7 mg/dL Normal 8.5-10.1 [facility] Comment on above: Performed By: #### C VDTBH #### [facility] [address] [place] [address] Dr. Jossy Porras Chloride [Moles/Vol] 101 mmol/L Normal 98-107 [facility] Comment on above: Performed By: #### C VDTBH #### [facility] [address] [place] [address] Dr. Jossy Porras CO2 [Moles/Vol] 28.9 mmol/L Normal 21.0-32.0 [facility] Comment on above: Performed By: #### C VDTBH #### [facility] [address] [place] [address] Dr. Jossy Porras Creatinine [Mass/Vol] 0.86 mg/dL Normal 0.70-1.30 [facility] Comment on above: Performed By: #### C VDTBH #### [facility] [address] [place] [address] Dr. Jossy Porras EGFR-AF ITALIAN >60 Normal >=60 [facility] Comment on above: Performed By: #### C VDTBH #### [facility] [address] [place] [address] Dr. Jossy Porras EGFR-NON AF ITALIAN >60 Normal >=60 [facility] Comment on above: Performed By: #### C VDTBH #### [facility] [address] [place] [address] Dr. Jossy Porras Globulin (S) [Mass/Vol] 4.6 g/dL Normal [facility] Comment on above: Performed By: #### C VDTBH #### [facility] [address] [place] [address] Dr. Jossy Porras Glucose [Mass/Vol] 117 mg/dL Critically high 74-106 [facility] Comment on above: Performed By: #### C VDTBH #### [facility] [address] [place] [address] Dr. Jossy Porras Potassium [Moles/Vol] 4.7 mmol/L Normal 3.5-5.1 [facility] Comment on above: Performed By: #### C VDTBH #### [facility] [address] [place] [address] Dr. Jossy Porras Protein [Mass/Vol] 8.0 g/dL Normal 6.4-8.2 [facility] Comment on above: Performed By: #### C VDTBH #### [facility] [address] [place] [address] Dr. Jossy Porras Sodium [Moles/Vol] 136 mmol/L Normal 136-145 [facility] Comment on above: Performed By: #### C VDTBH #### [facility] [address] [address] [address] Jossy Porras Urea nitrogen [Mass/Vol] 14.0 mg/dL Normal 7.0-18.0 [facility] Comment on above: Performed By: #### C VDTBH #### [facility] [address] [place] [address] Dr. Jossy Porras Urea nitrogen/Creatinine [Mass ratio] 16.3 mg/mg Normal [facility] Comment on above: Performed By: #### C VDTBH #### [facility] [id number] Jossy Porras XR CHEST 1 Von 12-13-2021 XR CHEST 1 V EXAMINATION: XR CHEST 1 V HISTORY: Shortness of breath COMPARISON: Chest x-ray 11/24/2021 TECHNIQUE: Portable chest FINDINGS: Stable hyperinflation of the lung parenchyma. The lung parenchyma is free of consolidation or infiltrate. No pneumothorax or pleural effusion. The cardiac, mediastinal and hilar contours are normal. The visualized osseous structures exhibit no gross abnormality. IMPRESSION: No acute cardiopulmonary abnormality. Electronically authenticated by: JEFRY SMITH Date: 2021-12-13 15:28 Normal [facility] CBC AUTO DIFFon 11-25-2021 BASO # 0.0 103/ul Normal 0.0-0.1 [facility] Comment on above: Performed By: #### C BC ####[facility] [address] [address]Dr. Jossy Porras Basophils/100 WBC (Bld) 0.3 % Normal 0.2-2.0 [facility] Comment on above: Performed By: #### C BC ####[facility] [address] [address]Dr. Jossy Porras EO # 0.0 103/ul Normal 0.0-0.7 [facility] Comment on above: Performed By: #### C BC ####[facility] [address] [id number]. Jossy Porras Eosinophils/100 WBC (Bld) 0.0 % Critically low 0.9-7.0 [facility] Comment on above: Performed By: #### C BC ####[facility] [address] [id number]. Jossy Porras Erythrocyte distribution width (RBC) [Ratio] 13.2 % Normal 11.0-15.0 [facility] Comment on above: Performed By: #### C BC ####[facility] [address] [address]Dr. Jossy Porras Hematocrit (Bld) [Volume fraction] 47.0 % Normal 42.0-54.0 [facility] Comment on above: Performed By: #### C BC ####[facility] [address] [address]Dr. Jossy eVrn Hemoglobin (Bld) [Mass/Vol] 16.0 g/dL Normal 14.0-18.0 [facility] Comment on above: Performed By: #### C BC ####[facility] [address] [address]Dr. Jossy Porras IG # 0.01 10e3/ul Normal 0.00-0.03 [facility] Comment on above: Performed By: #### C BC ####[facility] [address] [place], [place] [address]Dr. Jossy Porras IG % 0.3 % Normal 0.0-0.5 [facility] Comment on above: Performed By: #### C BC ####[facility] [address] [place], [place] [address]DrSal Porras LYMPH # 0.7 103/ul Critically low 1.2-3.8 [facility] Comment on above: Performed By: #### C BC ####[facility] M[address] [place], [place] [address]DrSal Porras Lymphocytes/100 WBC (Bld) 22.2 % Normal 20.5-60.0 [facility] Comment on above: Performed By: #### C BC ####[facility] [address] [place], [place] [address]DrSal Porras MANUAL DIFF REQ NO Normal [facility] Comment on above: Performed By: #### C BC ####[facility] X[address] [place], [place] [address]DrSal Porras MCH (RBC) [Entitic mass] 31.4 pg Normal 25.9-34.0 [facility] Comment on above: Performed By: #### C BC ####[facility] H[address] [place], [place] [address]Dr. Jossy Porras MCHC (RBC) [Mass/Vol] 34.0 g/dL Normal 29.9-35.2 [facility] Comment on above: Performed By: #### C BC ####[facility] [address] [place], [place] [address]DrSal Porras MCV (RBC) [Entitic vol] 92.3 fL Normal 80.0-94.0 [facility] Comment on above: Performed By: #### C BC ####[facility] Heis[address] [place], [place] [address]DrSal Porras MONO # 0.1 103/ul Critically low 0.3-0.8 [facility] Comment on above: Performed By: #### C BC ####[facility] [address] [place], [place] [address]DrSal Porras Monocytes/100 WBC (Bld) 2.5 % Normal 1.7-12.0 [facility] Comment on above: Performed By: #### C BC ####[facility] [address] [place], [place] [address]DrSal Porras NEUT # 2.4 103/ul Normal 1.4-6.5 [facility] Comment on above: Performed By: #### C BC ####[facility] Y[address] [place], [place] [address]DrSal Porras Neutrophils/100 WBC (Bld) 74.7 % Normal 43.0-75.0 [facility] Comment on above: Performed By: #### C BC ####[facility] E[address]zaxsed[address] [place], [place] [address]DrSal Porras Platelet mean volume (Bld) [Entitic vol] 12.4 fL Normal 9.5-13.5 [facility] Comment on above: Performed By: #### C BC ####[facility] Gr[address] [place], [place] [address]DrSal Porras PLT 95 103/ul Critically low 150-450 [facility] Comment on above: Performed By: #### C BC ####[facility] Usm[address]km[address] [place], [place] [address]DrSal Porras RBC 5.09 106/ul Normal 4.70-6.10 [facility] Comment on above: Performed By: #### C BC ####[facility] [address] [id number]. Jossy Porras WBC 3.2 103/ul Critically low 4.0-11.0 [facility] Comment on above: Performed By: #### C BC ####[facility] [address] [id number] Porras CRPon 11-25-2021 CRP 3.5 mg/dL Critically high <=1.0 [facility] Comment on above: Performed By: #### C VDTB #### [facility] [address] [address] [address] Jossy Porras PROF 14(COMP METB)on 022 Albumin [Mass/Vol] 3.2 g/dL Critically low 3.4-5.0 [facility] Comment on above: Performed By: #### C MP, CRP ####[facility] [address] [id number]. Jossy Porras Albumin/Globulin [Mass ratio] 0.8 {ratio} Normal [facility] Comment on above: Performed By: #### C MP, CRP ####[facility] [address] [id number]. Jossy Porras ALP [Catalytic activity/Vol] 99 U/L Normal 46-116 [facility] Comment on above: Performed By: #### C MP, CRP ####[facility] [address] [id number]. Jossy Porras ALT [Catalytic activity/Vol] 47 U/L Normal 16-63 [facility] Comment on above: Performed By: #### C MP, CRP ####[facility] [address] [id number]. Jossy Porras Anion gap [Moles/Vol] 9.1 mmol/L Normal [facility] Comment on above: Performed By: #### C MP, CRP ####[facility] [address] [address]Dr. Jossy Porras AST [Catalytic activity/Vol] 34 U/L Normal 15-37 [facility] Comment on above: Performed By: #### C MP, CRP ####[facility] Pwkpkednkb[address] [place], [place] [address]Dr. Jossy Porras Bilirubin [Mass/Vol] 0.8 mg/dL Normal 0.2-1.0 [facility] Comment on above: Performed By: #### C MP, CRP ####[facility] [address] [place], [place] [address]Dr. Jossy Porras Calcium [Mass/Vol] 8.5 mg/dL Normal 8.5-10.1 [facility] Comment on above: Performed By: #### C MP, CRP ####[facility] U[address]zvsc[address] [place], [place] [address]Dr. Jossy Porras Chloride [Moles/Vol] 101 mmol/L Normal 98-107 [facility] Comment on above: Performed By: #### C MP, CRP ####[facility] [address] [place], [place] [address]Dr. Jossy Porras CO2 [Moles/Vol] 30.5 mmol/L Normal 21.0-32.0 [facility] Comment on above: Performed By: #### C MP, CRP ####[facility] [address] [place], [place] [address]Dr. Jossy Porras Creatinine [Mass/Vol] 0.96 mg/dL Normal 0.70-1.30 [facility] Comment on above: Performed By: #### C MP, CRP ####[facility] Mk[address]ms[address] [place], [place] [address]Dr. Jossy Porras EGFR-AF ITALIAN >60 Normal >=60 [facility]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
--- NOTE | 2023-07-30 14:12 | XR_ITS ---
The [address] [address] Patient Name: JAMSHID VARELA MRN: [id number] date: 1955 Sex: M Assigned Patient Location: MRI Current Patient Location: MRI Accession/Order Number: [id number] Exam Date: 07/30/2023 14:15 Report Date: 07/30/2023 14:35 At the request of: NON-STAFF PHYSICIAN Procedure: XR pelvis 1-2V PROCEDURE: XR pelvis 1-2V HISTORY: Pre MRI COMPARISON: None. FINDINGS: BONES:No fracture, acute abnormality, or significant arthropathy. SOFT TISSUES:No visible soft tissue swelling. EFFUSION:None visible. OTHER: Bilateral iliac endovascular stents. Atherosclerotic disease. XR/XR pelvis 1-2V IMPRESSION: 1. Endovascular stents are present within the common iliac arteries bilaterally. Electronically authenticated by: MARIBETH CEDILLO Date: 07/30/2023 14:35
== END 2023-07-30 13:30 | disposition home or self-care (01) ==
LOC: MRI 13:29
PROVIDERS: PCP Family Medicine
DX: R20.2 Paresthesia of skin (principal); S32.010A Wedge compression fracture of first lumbar vertebra, initial encounter for closed fracture; M47.816 Spondylosis without myelopathy or radiculopathy, lumbar region
CPT/HCPCS: 72148; 72170

== ENCOUNTER 2023-09-10 13:24 | Outpatient (OUT) | payer MEDICARE, MEDICAID, SELFPAY ==
--- NOTE | 2023-09-10 13:29 | MR_ITS ---
The [address] [address] Patient Name: JAMSHID VARELA MRN: [id number] date: 1955 Sex: M Assigned Patient Location: MRI Current Patient Location: Accession/Order Number: [id number] Exam Date: 09/10/2023 13:40 Report Date: 09/12/2023 06:34 At the request of: NON-STAFF PHYSICIAN Procedure: MR pelvis wo con EXAMINATION: MR pelvis wo con HISTORY: Wedge Compression Fracture Of Third Lumbar Vertebra S32.030A COMPARISON: No relevant comparison available. TECHNIQUE: A complete multi-planar examination was performed to optimize visualization of suspected pathology. FINDINGS: LYMPH NODES: No adenopathy. BLADDER: 1.2 cm diverticulum projecting from posterior left wall. BONES: No bony lesion or fracture. OTHER: Skin surface contour deformity just left of midline at level of the lower sacrum. MR/MR pelvis wo con IMPRESSION: 1. No abnormal signal or appreciable involvement of the sacrum to suggest osteomyelitis. 2. Suspect skin ulceration just left of midline overlying the lower sacrum. No appreciable extension to the sacrum. Electronically authenticated by: MARIBETH CEDILLO Date: 09/12/2023 06:34
== END 2023-09-10 13:25 | disposition home or self-care (01) ==
LOC: MRI 13:24
PROVIDERS: PCP Family Medicine
DX: S32.030A Wedge compression fracture of third lumbar vertebra, initial encounter for closed fracture (principal); S32.010A Wedge compression fracture of first lumbar vertebra, initial encounter for closed fracture
CPT/HCPCS: 72195

== ENCOUNTER 2023-09-15 10:02 | Outpatient (OUT) | payer MEDICARE, MEDICAID, SELFPAY ==
--- OUTSIDE RECORDS SUMMARY | 2023-09-15 10:26 | XMS_ITS | CCD ---
Author Organization [facility] Care Team Providers Care Retail Sales Clerk Name Role Phone LENNOX GILL Attending Unavailable LENNOX GILL Consulting Unavailable JAIRO, LENNOX Admitting Unavailable FAWWAD, HERZOG H Primary Care Unavailable CARLA SANTOS Consulting Unavailable JEFRY SMITH Consulting Unavailable JAIRO, LENNOX Admitting Unavailable LENNOX GILL Attending Unavailable LENNOX GILL Consulting Unavailable FAWWAAriel, HERZOG H Primary Care Unavailable NIELS BERNAL Consulting Unavailable FALAVON, HERZOG H Attending Unavailable PATRICIA, NONE LISTED Primary Care UnavailELI Cotton Consulting Unavailable FAWWAD, HERZOG H Admitting Unavailable FAWKHAI, HERZOG H Consulting Unavailable NEFCYNIELS Consulting Unavailable HOYOS, SHAQUILLE Consulting Unavailable FAWWAD, HERZOG H Admitting Unavailable NGUYEN, DR MARIBETH Andres Consulting Unavailable FAWWAD, HERZOG H Attending Unavailable FAWWAAriel, HERZOG H Primary Care Unavailable ELI PEREZ Consulting Unavailable AHDOJEANNIE HASSAN Consulting Unavailable FAWWAD, HERZOG H Consulting Unavailable HALIMA PARRISH-TERI Consulting Unavailable SAMSA, SARA Admitting Unavailable SAMSA SARA Attending Unavailable SAMSA, SARA Consulting Unavailable FAWWAD, HERZOG H Primary Care Unavailable SHAWN DOBBS Attending Unavailable DAVY DE SOUZA Admitting Unavailable Shaikh Hook MD Primary Care Provider SHAIKH HOOK Primary Care Unavailable MARIBETH MINOR Admitting Unavailable MARIBETH MINOR Attending Unavailable SABA REDDING Attending Unavailable HOLLIE DOBBINS Referring Unavailable Medications Current Medications Medication Drug Class(es) [...] Onset: 06-20-2022 Episodic Other aftercare (1 source) retirement (current) use of aspirin; Translations: [SENIOR CARE CURRENT USE OF ASPIRIN] Onset: 06-15-2022 Episodic Other aftercare (1 source) Other detention (current) drug therapy; Translations: [OTH SENIOR CARE CURRENT DRUG THERAPY] Onset: 05-15-2022 Episodic Other [...] Absolute Eos # 0.10 [facility] [employer] [facility] Immature Granulocyte 0.16 [facility] Lymph # 1.90 [facility] [employer] ([email or web address]) Absolute Barrow # 0.48 [facility] [employer] ([email or web address]) Basophils (Bld) [#/Vol] 0.04 10*3/uL [facility] [employer] ([email or web address]) Basophils/100 WBC (Bld) 1 % 0 - 2 % [facility] Eosinophils/100 WBC (Bld) 2 % 1 - 4 % [facility] Hematocrit (Bld) [Volume fraction] 42.5 % 40.7 - 50.3 % [facility] Hemoglobin (Bld) [Mass/Vol] 13.4 g/dL 13.0 - 17.0 g/dL [facility] Immature granulocytes/100 WBC (Bld) 2 % High 0 [facility] Interpretation and review of laboratory results Abnormal [facility] Lymphocytes/100 WBC (Bld) 28 % 24 - 43 % [facility] MCH (RBC) [Entitic mass] 31.2 pg 25.2 - 33.5 pg [facility] MCHC (RBC) [Mass/Vol] 31.5 g/dL 28.4 - 34.8 g/dL [facility] MCV (RBC) [Entitic vol] 99.1 fL 82.6 - 102.9 fL [facility] Monocytes/100 WBC (Bld) 7 % 3 - 12 % [facility] NRBC Automated 0.0 0.0 per 100 WBC [facility] Platelet distribution width (Bld) [Ratio] 13.7 % 11.8 - 14.4 % [facility] Platelet mean volume (Bld) [Entitic vol] 11.7 fL 8.1 - 13.5 fL [facility] Platelets (Bld) [#/Vol] 177 10*3/uL [facility] RBC (Bld) [#/Vol] 4.29 10*6/uL 4.21 - 5.7 7 m/uL [facility] Segmented neutrophils/100 WBC (Bld) 60 % 36 - 65 % [facility] Segs Absolute 4.21 [facility] WBC (Bld) [#/Vol] 6.9 10*3/uL [facility] CBC with Diffon 06-27-2022 Abs. Basophil 0.04 k/uL Normal 0.00-0.20 [facility] Comment on above: Performed By: #### E RTPF, FT4, GLYHGB, ALB, TSH, B12, VD25, ECENZ #### [address] [address] Triage Register Nurse: Abelardo Castaneda MD Abs.Imm.Granulocyte 0.16 k/uL Normal 0.00-0.30 [facility] Comment on above: Performed By: #### E RTPF, FT4, GLYHGB, ALB, TSH, B12, VD25, ECENZ #### [place] [address] Triage Register Nurse: Abelardo Castaneda MD Abs.Neutrophil (Seg) 4.21 k/uL Normal 1.50-8.10 [facility] Comment on above: Performed By: #### E RTPF, FT4, GLYHGB, ALB, TSH, B12, VD25, ECENZ #### [place] [address] Triage Register Nurse: Abelardo Castaneda MD Basophils/100 WBC (Bld) 1 % Normal 0-2 [facility] Comment on above: Performed By: #### E RTPF, FT4, GLYHGB, ALB, TSH, B12, VD25, ECENZ #### [place] [address] Triage Register Nurse: Abelardo Castaneda MD Eosinophils (Bld) [#/Vol] 0.10 10*3/uL Normal 0.00-0.44 [facility] Comment on above: Performed By: #### E RTPF, FT4, GLYHGB, ALB, TSH, B12, VD25, ECENZ #### [address] [address] Triage Register Nurse: Abelardo Castaneda MD Eosinophils/100 WBC (Bld) 2 % Normal 1-4 [facility] Comment on above: Performed By: #### E RTPF, FT4, GLYHGB, ALB, TSH, B12, VD25, ECENZ #### [address] [place] [address] Triage Register Nurse: Abelardo Castaneda MD Erythrocyte distribution width (RBC) [Ratio] 13.7 % Normal 11.8-14.4 [facility] Comment on above: Performed By: #### E RTPF, FT4, GLYHGB, ALB, TSH, B12, VD25, ECENZ #### [address] [address] Triage Register Nurse: Abelardo Castaneda MD Hematocrit (Bld) [Volume fraction] 42.5 % Normal 40.7-50.3 [facility] Comment on above: Performed By: #### E RTPF, FT4, GLYHGB, ALB, TSH, B12, VD25, ECENZ #### [address] [address] Triage Register Nurse: Abelardo Castaneda MD Hemoglobin (Bld) [Mass/Vol] 13.4 g/dL Normal 13.0-17.0 [facility] Comment on above: Performed By: #### E RTPF, FT4, GLYHGB, ALB, TSH, B12, VD25, ECENZ #### [address] [address] Triage Register Nurse: Abelardo Castaneda MD Immature granulocytes/100 WBC (Bld) 2 % High 0 [facility] Comment on above: Performed By: #### E RTPF, FT4, GLYHGB, ALB, TSH, B12, VD25, ECENZ #### [address] [address] Triage Register Nurse: Abelardo Castaneda MD Lymphocytes (Bld) [#/Vol] 1.90 10*3/uL Normal 1.10-3.70 [facility] Comment on above: Performed By: #### E RTPF, FT4, GLYHGB, ALB, TSH, B12, VD25, ECENZ #### [address] [address] Triage Register Nurse: Abelardo Castaneda MD Lymphocytes/100 WBC (Bld) 28 % Normal 24-43 [facility] Comment on above: Performed By: #### E RTPF, FT4, GLYHGB, ALB, TSH, B12, VD25, ECENZ #### [address] [address] Triage Register Nurse: Abelardo Castaneda MD MCH (RBC) [Entitic mass] 31.2 pg Normal 25.2-33.5 [facility] Comment on above: Performed By: #### E RTPF, FT4, GLYHGB, ALB, TSH, B12, VD25, ECENZ #### [address] [address] Triage Register Nurse: Abelardo Castaneda MD MCHC (RBC) [Mass/Vol] 31.5 g/dL Normal 28.4-34.8 [facility] Comment on above: Performed By: #### E RTPF, FT4, GLYHGB, ALB, TSH, B12, VD25, ECENZ #### [address] [address] Triage Register Nurse: Abelardo Castaneda MD MCV (RBC) [Entitic vol] 99.1 fL Normal 82.6-102.9 [facility] Comment on above: Performed By: #### E RTPF, FT4, GLYHGB, ALB, TSH, B12, VD25, ECENZ #### [address] [address] Triage Register Nurse: Abelardo Castaneda MD Monocytes (Bld) [#/Vol] 0.48 10*3/uL Normal 0.10-1.20 [facility] Comment on above: Performed By: #### E RTPF, FT4, GLYHGB, ALB, TSH, B12, VD25, ECENZ #### [address] [address] Triage Register Nurse: Abelardo Castaneda MD Monocytes/100 WBC (Bld) 7 % Normal 3-12 [facility] Comment on above: Performed By: #### E RTPF, FT4, GLYHGB, ALB, TSH, B12, VD25, ECENZ #### [address] [address] Triage Register Nurse: Abelardo Castaneda MD Neutrophil (Seg) 60 % Normal 36-65 [facility] Comment on above: Performed By: #### E RTPF, FT4, GLYHGB, ALB, TSH, B12, VD25, ECENZ #### [address] [address] Triage Register Nurse: Abelardo Castaneda MD NRBC Automated 0.0 per 100 WBC Normal 0.0 [facility] Comment on above: Performed By: #### E RTPF, FT4, GLYHGB, ALB, TSH, B12, VD25, ECENZ #### [address] [address] Triage Register Nurse: Abelardo Castaneda MD Platelet mean volume (Bld) [Entitic vol] 11.7 fL Normal 8.1-13.5 [facility] Comment on above: Performed By: #### E RTPF, FT4, GLYHGB, ALB, TSH, B12, VD25, ECENZ #### [address] [address] Triage Register Nurse: Abelardo Castaneda MD Platelets (Bld) [#/Vol] 177 10*3/uL Normal 138-453 [facility] Comment on above: Performed By: #### E RTPF, FT4, GLYHGB, ALB, TSH, B12, VD25, ECENZ #### [address] [address] Triage Register Nurse: Abelardo Castaneda MD RBC (Bld) [#/Vol] 4.29 10*6/uL Normal 4.21-5.77 [facility] Comment on above: Performed By: #### E RTPF, FT4, GLYHGB, ALB, TSH, B12, VD25, ECENZ #### [address] [address] Triage Register Nurse: Abelardo Castaneda MD WBC (Bld) [#/Vol] 6.9 10*3/uL Normal 3.5-11.3 [facility] Comment on above: Performed By: #### E RTPF, FT4, GLYHGB, ALB, TSH, B12, VD25, ECENZ #### [address] [address] Triage Register Nurse: Abelardo Castaneda MD Comp Metabolic Pr/rfx MGon 0 - Anion gap [Moles/Vol] 5 mmol/L Low 9-17 [facility] Comment on above: Performed By: #### E RTPF, FT4, GLYHGB, ALB, TSH, B12, VD25, ECENZ #### [address] [address] Triage Register Nurse: Abelardo Castaneda MD Chloride [Moles/Vol] 101 mmol/L Normal 98-107 [facility] Comment on above: Performed By: #### E RTPF, FT4, GLYHGB, ALB, TSH, B12, VD25, ECENZ #### [facility] [employer] [address] [place] [address] Triage Register Nurse: Abelardo Castaneda MD Potassium [Moles/Vol] 4.7 mmol/L Normal 3.7-5.3 [facility] Comment on above: Performed By: #### E RTPF, FT4, GLYHGB, ALB, TSH, B12, VD25, ECENZ #### [facility] [employer] [address] [place] [address] [phone] Triage Register Nurse: Abelardo Castaneda MD Sodium [Moles/Vol] 139 mmol/L Normal 135-144 [facility] Comment on above: Performed By: #### E RTPF, FT4, GLYHGB, ALB, TSH, B12, VD25, ECENZ #### [address] [address] Triage Register Nurse: Abelardo Castaneda MD Albumin [Mass/Vol] 3.0 g/dL Low 3.5-5.2 [facility] Comment on above: Performed By: #### E RTPF, FT4, GLYHGB, ALB, TSH, B12, VD25, ECENZ #### [address] [address] Triage Register Nurse: Abelardo Castaneda MD Albumin/Glob Ratio 1.2 Normal 1.0-2.5 [facility] Comment on above: Performed By: #### E RTPF, FT4, GLYHGB, ALB, TSH, B12, VD25, ECENZ #### [address] [address] Triage Register Nurse: Abelardo Castaneda MD Alkaline Phos 80 U/L Normal 40-129 [facility] Comment on above: Performed By: #### E RTPF, FT4, GLYHGB, ALB, TSH, B12, VD25, ECENZ #### [address] [address] Triage Register Nurse: Abelardo Castaneda MD ALT [Catalytic activity/Vol] 41 U/L Normal 5-41 [facility] Comment on above: Performed By: #### E RTPF, FT4, GLYHGB, ALB, TSH, B12, VD25, ECENZ #### [address] [address] Triage Register Nurse: Abelardo Castaneda MD AST [Catalytic activity/Vol] 27 U/L Normal <40 [facility] Comment on above: Performed By: #### E RTPF, FT4, GLYHGB, ALB, TSH, B12, VD25, ECENZ #### [address] [phone] Triage Register Nurse: Abelardo Castaneda MD Bilirubin [Mass/Vol] 0.3 mg/dL Normal 0.3-1.2 [facility] Comment on above: Performed By: #### E RTPF, FT4, GLYHGB, ALB, TSH, B12, VD25, ECENZ #### [address] [address] Triage Register Nurse: Abelardo Castaneda MD Calcium [Mass/Vol] 8.8 mg/dL Normal 8.6-10.4 [facility] Comment on above: Performed By: #### E RTPF, FT4, GLYHGB, ALB, TSH, B12, VD25, ECENZ #### [place] [address] Triage Register Nurse: Abelardo Castandea MD CO2 [Moles/Vol] 33 mmol/L High 20-31 [facility] Comment on above: Performed By: #### E RTPF, FT4, GLYHGB, ALB, TSH, B12, VD25, ECENZ #### [address] [phone] Triage Register Nurse: Abelardo Castaneda MD Creatinine [Mass/Vol] 0.81 mg/dL Normal 0.70-1.20 [facility] Comment on above: Performed By: #### E RTPF, FT4, GLYHGB, ALB, TSH, B12, VD25, ECENZ #### [address] [address] Triage Register Nurse: Abelardo Castaneda MD GFR/1.73 sq M.predicted among non-blacks MDRD (S/P/Bld) [Vol rate/Area] mL/min/{1.73_m2} Normal >60 [facility] Comment on above: Result Comment: These [...] GLYHGB, ALB, TSH, B12, VD25, ECENZ #### [employer] [address] [place] [address] Triage Register Nurse: Abelardo Castaneda MD Glucose [Mass/Vol] 96 mg/dL Normal 70-99 [facility] Comment on above: Performed By: #### E RTPF, FT4, GLYHGB, ALB, TSH, B12, VD25, ECENZ #### [address] [address] Triage Register Nurse: Abelardo Castaneda MD Protein [Mass/Vol] 5.6 g/dL Low 6.4-8.3 [facility] Comment on above: Performed By: #### E RTPF, FT4, GLYHGB, ALB, TSH, B12, VD25, ECENZ #### [employer] [address] [place] [address] Triage Register Nurse: Abelardo Castaneda MD Urea nitrogen [Mass/Vol] 21 mg/dL Normal 8-23 [facility] Comment on above: Performed By: #### E RTPF, FT4, GLYHGB, ALB, TSH, B12, VD25, ECENZ #### [employer] [address] [place] [address] Triage Register Nurse: Abelardo Castaneda MD Comprehensive Metabolic Pane l w/ Reflex to MGon 06-27-2022 Albumin [Mass/Vol] 3 g/dL Low 3.5 - 5.2 g/dL [facility] Albumin/Globulin [Mass ratio] 1.2 {ratio} 1.0 - 2.5 [facility] ALP [Catalytic activity/Vol] 80 U/L 40 - 129 U/L [facility] ALT [Catalytic activity/Vol] 41 U/L 5 - 41 U/L [facility] Anion gap [Moles/Vol] 5 mmol/L Low 9 - 17 mmol/L [facility] AST [Catalytic activity/Vol] 27 U/L NINF - 40 U/L [facility] Bilirubin [Mass/Vol] 0.3 mg/dL 0.3 - 1 .2 mg/dL [facility] Calcium [Mass/Vol] 8.8 mg/dL 8.6 - 10. 4 mg/dL [facility] Chloride [Moles/Vol] 101 mmol/L 98 - 10 7 mmol/L [facility] CO2 [Moles/Vol] 33 mmol/L High 20 - 31 mmol/L [facility] Creatinine [Mass/Vol] 0.81 mg/dL 0.70 - 1.20 mg/dL [facility] GFR/1.73 sq M.predicted MDRD (S/P/Bld) [Vol rate/Area] - PINF [facility] Comment on above: These results are [...] [Mass/Vol] 96 mg/dL 70 - 99 mg/dL [facility] Interpretation and review of laboratory results Abnormal [facility] Potassium [Moles/Vol] 4.7 mmol/L 3.7 - 5.3 mmol/L [facility] Protein [Mass/Vol] 5.6 g/dL Low 6.4 - 8.3 g/dL [facility] Sodium [Moles/Vol] 139 mmol/L 135 - 144 mmol/L [facility] Urea nitrogen [Mass/Vol] 21 mg/dL 8 - 23 mg/dL [facility] Albuminon 06-26-2022 Albumin [Mass/Vol] 3.5 g/dL Normal 3.5-5.2 [facility] Comment on above: Performed By: #### E RTPF, FT4, GLYHGB, ALB, TSH, B12, VD25, ECENZ #### [address] [phone] Triage Register Nurse: Abelardo Castaneda MD Albumin [Mass/Vol] 3.5 g/dL 3.5 - 5.2 g/dL [facility] Drug Scr, Abuse, Uron 2022 Amphetamine(s),Ur Negative Normal NEG [facility] Comment on above: Result Comment: (Positive cutoff 1000 ng/mL) Performed By: #### E RTPF, FT4, GLYHGB, ALB, TSH, B12, VD25, ECENZ #### [place] [address] Triage Register Nurse: Abelardo Castaneda MD Barbiturate(s),Ur Negative Normal NEG [facility] Comment on above: Result Comment: (Positive cutoff 200 ng/mL) Performed By: #### E RTPF, FT4, GLYHGB, ALB, TSH, B12, VD25, ECENZ #### [address] [address] Triage Register Nurse: Abelardo Castaneda MD Benzodiazepine(s) Negative Normal NEG [facility] Comment on above: Result Comment: (Positive cutoff 200 ng/mL) Performed By: #### E RTPF, FT4, GLYHGB, ALB, TSH, B12, VD25, ECENZ #### [address] [address] Triage Register Nurse: Abelardo Castaneda MD Cannabinoid(s),Ur Positive Abnormal NEG [facility] Comment on above: Result Comment: (Positive cutoff 50 ng/mL) Performed By: #### E RTPF, FT4, GLYHGB, ALB, TSH, B12, VD25, ECENZ #### [facility] [address] [place] [phone] Triage Register Nurse: Abelardo Castaneda MD Cocaine Metabolite Negative Normal NEG [facility] Comment on above: Result Comment: (Positive cutoff 300 ng/mL) Performed By: #### E RTPF, FT4, GLYHGB, ALB, TSH, B12, VD25, ECENZ #### [facility] [employer] [address] [place] [address] Triage Register Nurse: Abelardo Castaneda MD Fentanyl, Urine Positive Abnormal NEG [facility] Comment on above: Result Comment: (Positive cutoff 5 ng/ml) Performed By: #### E RTPF, FT4, GLYHGB, ALB, TSH, B12, VD25, ECENZ #### [address] [address] Triage Register Nurse: Abelardo Castaneda MD Interpretive Info Assay provides medical screening only. The absence of expected drug(s) and/or Normal [facility] Comment on above: Result Comment: meta bolite(s) may indicate diluted or adulterated urine, limitations of testing or timing of collection. Testing for legal purposes should be confirmed by another method. To request confirmation of test result, please call the lab within 7 days of sample submission. Performed By: #### E RTPF, FT4, GLYHGB, ALB, TSH, B12, VD25, ECENZ #### [facility] [employer] [address] [place] [phone] Triage Register Nurse: Abelardo Castaneda MD Methadone Ql (U) Negative Normal NEG [facility] Comment on above: Result Comment: (Positive cutoff 300 ng/mL) Performed By: #### E RTPF, FT4, GLYHGB, ALB, TSH, B12, VD25, ECENZ #### [facility] [employer] [address] [place] [phone] Triage Register Nurse: Abelardo Castaneda MD Opiate(s), Ur Positive Abnormal NEG [facility] Comment on above: Result Comment: (Positive cutoff 300 ng/mL) Performed By: #### E RTPF, FT4, GLYHGB, ALB, TSH, B12, VD25, ECENZ #### [employer] [address] [place] [address] [phone] Triage Register Nurse: Abelardo Castaneda MD Oxycodone, Urine Negative Normal NEG [facility] Comment on above: Result Comment: (Positive cutoff 100 ng/mL) Performed By: #### E RTPF, FT4, GLYHGB, ALB, TSH, B12, VD25, ECENZ #### [facility] [address] [place] [address] [phone] Triage Register Nurse: Abelardo Castaneda MD Phencyclidine, Ur Negative Normal NEG [facility] Comment on above: Result Comment: (Positive cutoff 25 ng/mL) Performed By: #### E RTPF, FT4, GLYHGB, ALB, TSH, B12, VD25, ECENZ #### [facility] [address] [place] [address] [phone] Triage Register Nurse: Abelardo Castaneda MD Drug screen multi urineon [...] 300 ng/mL) Oxycodone Screen, Ur Negative NEGATIVE [facility] Comment on above: (Positive cutoff 100 ng/mL) Phencyclidine, Urine Negative NEGATIVE [facility] Comment on above: (Positive cutoff 25 ng/mL) Test Information Assay provides medical screening only. The absence of expected drug(s) and/or metabolite(s) may indicate diluted or adulterated urine, limitations of testing or timing of collection. [facility] Comment on above: Testing for legal pu rposes should be confirmed by another method. To request confirmation of test result, please call the lab within 7 days of sample submission. [facility] Hemoglobin A1Con 06-26-2022 Glucose [Mass/Vol] 134 mg/dL Normal [facility] Comment on above: Result Comment: The ADA and AACC recommend providing the estimated average glucose result to permit better patient understanding of their HBA1c result. Performed By: #### E RTPF, FT4, GLYHGB, ALB, TSH, B12, VD25, ECENZ #### [facility] [employer] [address] [place] [address] [phone] Triage Register Nurse: Abelardo Castaneda MD HbA1c (Bld) [Mass fraction] 6.3 % High 4.0-6.0 [facility] Comment on above: Performed By: #### E RTPF, FT4, GLYHGB, ALB, TSH, B12, VD25, ECENZ #### [facility] [employer] [address] [place] [address] [phone] Triage Register Nurse: Abelardo Castaneda MD Average glucose Estimated from glycated hemoglobin (Bld) [Mass/Vol] 134 mg/dL [facility] Comment on above: The ADA and AACC rec ommend providing the estimated average glucose result to permit better patient understanding of their HBA1c result. HbA1c (Bld) [Mass fraction] 6.3 % High 4.0 - 6.0 % [facility] Interpretation and review of laboratory results Abnormal [facility] No Panel Informationon 06-26 Interpretation and review of laboratory results Abnormal [facility] Radiology Study observation (narrative) [facility] Work Phone: T4, Freeon 06-26-2022 Free T4 [Mass/Vol] 1.38 ng/dL 0.93 - 1. 70 ng/dL [facility] TROP/MYOGLOBINon 06-26-2022 Myoglobin [Mass/Vol] 27 ng/mL Low 28 - 72 ng/mL [facility] Troponin I.cardiac DL <= 0.01 ng/mL [Mass/Vol] 16 ng/L 0 - 22 ng/L [facility] Comment on above: High Sensitivity Tro ponin values cannot be compared with other Troponin methodologies. TSHon 06-26-2022 TSH Qn 2.95 m[IU]/L [facility] TYPE AND SCREENon 06-26-2022 ABO/Rh Positive [facility] Arm Band Number [id number] [facility] Expiration Date 06/29/2022,235 [facility] Thyroid Stim. Horm.on 2022 Thyroid Stim. Horm. 2.95 uIU/mL Normal 0.30-5.00 [facility] Comment on above: Performed By: #### E RTPF, FT4, GLYHGB, ALB, TSH, B12, VD25, ECENZ #### [facility] [address] [place] [phone] Triage Register Nurse: Abelardo Castaneda MD Thyroxine, Freeon 06-26-2022 Thyroxine, Free 1.38 ng/dL Normal 0.93-1.70 [facility] Comment on above: Performed By: #### E RTPF, FT4, GLYHGB, ALB, TSH, B12, VD25, ECENZ #### [facility] [address] [place] [phone] Triage Register Nurse: Abelardo Castaneda MD Trauma Panelon 06-26-2022 Anion gap [Moles/Vol] 11 mmol/L 9 - 17 mmol/L [facility] aPTT Coag (Bld) [Time] 22.1 s [facility] Comment on above: IV Heparin Therapy Range: 48.6-77.8 Blood Bank Specimen BILL FOR SERVICES PERFORMED [facility] Carboxyhemoglobin 6.3 % High 0 - 5 % [facility] Comment on above: Reference Range: Non-Smokers 0-2% Average Smoker 2-4% Heavy Smoker <10% Chloride [Moles/Vol] 100 mmol/L 98 - 10 7 mmol/L [facility] CO2 [Moles/Vol] 28 mmol/L 20 - 31 mmol/L [facility] Creatinine [Mass/Vol] 0.74 mg/dL 0.70 - 1.20 mg/dL [facility] Ethanol [Mass/Vol] mg/dL NINF - 10 mg/dL [facility] Ethanol percent <0.010 NINF - 0.010 % [facility] [email or web address] FIO2 Unknown [facility] GFR/1.73 sq M.predicted MDRD (S/P/Bld) [Vol rate/Area] - PINF [facility] Comment on above: These results are [...] 145 mg/dL High 70 - 99 mg/dL [facility] hCG Qual PT IS MALE [facility] HCO3 (Bld) [Moles/Vol] 30.9 mmol/L High 24 - 30 mmol/L [facility] Hematocrit (Bld) [Volume fraction] 49.4 % 40.7 - 50.3 % [facility] Hemoglobin (Bld) [Mass/Vol] 15.4 g/dL 13.0 - 17.0 g/dL [facility] INR Coag (PPP) [Relative time] 1.0 {INR} [facility] Comment on above: Therapeutic Range: Moderate Anticoagulant Intensity: INR = 2.0-3.0 High Anticoagulant Intensity: INR = 2.5-3.5 Interpretation and review of laboratory results Abnormal [facility] MCH (RBC) [Entitic mass] 31.0 pg 25.2 - 33.5 pg [facility] [facility] MCHC (RBC) [Mass/Vol] 31.2 g/dL 28.4 - 34.8 g/dL [facility] MCV (RBC) [Entitic vol] 99.6 fL 82.6 - 102.9 fL [facility] NRBC Automated 0.0 0.0 per 100 WBC [facility] Oxygen saturation in Blood 67.6 % 60.0 - 85.0 % [facility] pCO2, Colin 50.3 [facility] pH, Colin 7.405 7.320 - 7.420 [facility] Platelet distribution width (Bld) [Ratio] 13.4 % 11.8 - 14.4 % [facility] Platelet mean volume (Bld) [Entitic vol] 11.4 fL 8.1 - 13.5 fL [facility] Platelets (Bld) [#/Vol] 201 10*3/uL [facility] pO2, Colin 32.4 [facility] Positive Base Excess, Colin 5.2 mmol/L High 0.0 - 2.0 mmol/L [facility] Potassium [Moles/Vol] 4.8 mmol/L 3.7 - 5.3 mmol/L [facility] PT Coag (PPP) [Time] 10.8 s [facility] Pt Temp 37.0 [facility] RBC (Bld) [#/Vol] 4.96 10*6/uL 4.21 - 5.7 7 m/uL [facility] Sodium [Moles/Vol] 139 mmol/L 135 - 144 mmol/L [facility] Urea nitrogen [Mass/Vol] 19 mg/dL 8 - 23 mg/dL [facility] WBC (Bld) [#/Vol] 9.6 10*3/uL [facility] Trauma Profileon 06-26-2022 Potassium [Moles/Vol] 4.8 mmol/L Normal 3.7-5.3 [facility] Comment on above: Performed By: #### E RTPF, FT4, GLYHGB, ALB, TSH, B12, VD25, ECENZ #### [address] [address] Triage Register Nurse: Abelardo Castaneda MD Anion gap [Moles/Vol] 11 mmol/L Normal 9-17 [facility] Comment on above: Performed By: #### E RTPF, FT4, GLYHGB, ALB, TSH, B12, VD25, ECENZ #### [address] [address] Triage Register Nurse: Abelardo Castaneda MD Chloride [Moles/Vol] 100 mmol/L Normal 98-107 [facility] Comment on above: Performed By: #### E RTPF, FT4, GLYHGB, ALB, TSH, B12, VD25, ECENZ #### [address] [address] Triage Register Nurse: Abelardo Castaneda MD CO2 [Moles/Vol] 28 mmol/L Normal 20-31 [facility] Comment on above: Performed By: #### E RTPF, FT4, GLYHGB, ALB, TSH, B12, VD25, ECENZ #### [address] [address] Triage Register Nurse: Abelardo Castaneda MD Creatinine [Mass/Vol] 0.74 mg/dL Normal 0.70-1.20 [facility] Comment on above: Performed By: #### E RTPF, FT4, GLYHGB, ALB, TSH, B12, VD25, ECENZ #### [address] [address] Triage Register Nurse: Abelardo Castaneda MD GFR/1.73 sq M.predicted among non-blacks MDRD (S/P/Bld) [Vol rate/Area] mL/min/{1.73_m2} Normal >60 [facility] Comment on above: Result Comment: These [...] GLYHGB, ALB, TSH, B12, VD25, ECENZ #### [address] [address] Triage Register Nurse: Abelardo Castaneda MD Glucose [Mass/Vol] 145 mg/dL High 70-99 [facility] Comment on above: Performed By: #### E RTPF, FT4, GLYHGB, ALB, TSH, B12, VD25, ECENZ #### [address] [address] Triage Register Nurse: Abelardo Castaneda MD Sodium [Moles/Vol] 139 mmol/L Normal 135-144 [facility] Comment on above: Performed By: #### E RTPF, FT4, GLYHGB, ALB, TSH, B12, VD25, ECENZ #### [address] [address] Triage Register Nurse: Abelardo Castaneda MD Urea nitrogen [Mass/Vol] 19 mg/dL Normal 8-23 [facility] Comment on above: Performed By: #### E RTPF, FT4, GLYHGB, ALB, TSH, B12, VD25, ECENZ #### [address] [address] Triage Register Nurse: Abelardo Castaneda MD Ethanol [Mass/Vol] mg/dL Normal <10 [facility] Comment on above: Performed By: #### E RTPF, FT4, GLYHGB, ALB, TSH, B12, VD25, ECENZ #### [address] [id number] Triage Register Nurse: Abelardo Castaneda MD Ethanol percent <0.010 Normal <0.010 [facility] Comment on above: Performed By: #### E RTPF, FT4, GLYHGB, ALB, TSH, B12, VD25, ECENZ #### [place] [id number] Triage Register Nurse: Abelardo Castaneda MD aPTT Coag (Bld) [Time] 22.1 s Normal 20.5-30.5 [facility] Comment on above: Result Comment: IV Heparin Therapy Range: 48.6-77.8 Performed By: #### E RTPF, FT4, GLYHGB, ALB, TSH, B12, VD25, ECENZ #### [place] [address] Triage Register Nurse: Abelardo Castaneda MD INR Coag (PPP) [Relative time] 1.0 {INR} Normal [facility] Comment on above: Result Comment: Therapeutic Range: Moderate Anticoagulant Intensity: INR = 2.0-3.0 High Anticoagulant Intensity: INR = 2.5-3.5 Performed By: #### E RTPF, FT4, GLYHGB, ALB, TSH, B12, VD25, ECENZ #### [place] [address] Triage Register Nurse: Abelardo Castaneda MD PT Coag (PPP) [Time] 10.8 s Normal 9.1-12.3 [facility] Comment on above: Performed By: #### E RTPF, FT4, GLYHGB, ALB, TSH, B12, VD25, ECENZ #### [place] [address] Triage Register Nurse: Abelardo Castaneda MD Body Temp. 37.0 Normal [facility] Comment on above: Performed By: #### E RTPF, FT4, GLYHGB, ALB, TSH, B12, VD25, ECENZ #### [address] [address] Triage Register Nurse: Abelardo Castaneda MD Carboxy Hgb 6.3 % High 0-5 [facility] Comment on above: Result Comment: Reference Range: Non-Smokers 0-2% Average Smoker 2-4% Heavy Smoker <10% Performed By: #### E RTPF, FT4, GLYHGB, ALB, TSH, B12, VD25, ECENZ #### [address] [address] Triage Register Nurse: Abelardo Castaneda MD FIO2 Unknown Normal [facility] Comment on above: Performed By: #### E RTPF, FT4, GLYHGB, ALB, TSH, B12, VD25, ECENZ #### [address] [address] Triage Register Nurse: Abelardo Castaneda MD HCO3 (Bld) [Moles/Vol] 30.9 mmol/L High 24-30 [facility] Comment on above: Performed By: #### E RTPF, FT4, GLYHGB, ALB, TSH, B12, VD25, ECENZ #### [address] [address] Triage Register Nurse: Abelardo Castaneda MD Oxygen saturation in Blood 67.6 % Normal 60.0-85.0 [facility] Comment on above: Performed By: #### E RTPF, FT4, GLYHGB, ALB, TSH, B12, VD25, ECENZ #### [address] [address] Triage Register Nurse: Abelardo Castaneda MD pCO2 50.3 mm Hg Normal 39-55 [facility] Comment on above: Performed By: #### E RTPF, FT4, GLYHGB, ALB, TSH, B12, VD25, ECENZ #### [address] [address] Triage Register Nurse: Abelardo Castaneda MD pH (Bld) 7.405 [pH] Normal 7.320-7.420 [facility] Comment on above: Performed By: #### E RTPF, FT4, GLYHGB, ALB, TSH, B12, VD25, ECENZ #### [address] [address] Triage Register Nurse: Abelardo Castaneda MD pO2 32.4 mm Hg Normal 30-50 [facility] Comment on above: Performed By: #### E RTPF, FT4, GLYHGB, ALB, TSH, B12, VD25, ECENZ #### [address] [address] Triage Register Nurse: Abelardo Castaneda MD Positive Base Excess 5.2 mmol/L High 0.0-2.0 [facility] Comment on above: Performed By: #### E RTPF, FT4, GLYHGB, ALB, TSH, B12, VD25, ECENZ #### [address] [address] Triage Register Nurse: Abelardo Castaneda MD Erythrocyte distribution width (RBC) [Ratio] 13.4 % Normal 11.8-14.4 [facility] Comment on above: Performed By: #### E RTPF, FT4, GLYHGB, ALB, TSH, B12, VD25, ECENZ #### [facility] [employer] [address] [place] [address] Triage Register Nurse: Abelardo Castaneda MD Hematocrit (Bld) [Volume fraction] 49.4 % Normal 40.7-50.3 [facility] Comment on above: Performed By: #### E RTPF, FT4, GLYHGB, ALB, TSH, B12, VD25, ECENZ #### [address] [address] Triage Register Nurse: Abelardo Castaneda MD Hemoglobin (Bld) [Mass/Vol] 15.4 g/dL Normal 13.0-17.0 [facility] Comment on above: Performed By: #### E RTPF, FT4, GLYHGB, ALB, TSH, B12, VD25, ECENZ #### [address] [address] Triage Register Nurse: Abelardo Castaneda MD MCH (RBC) [Entitic mass] 31.0 pg Normal 25.2-33.5 [facility] Comment on above: Performed By: #### E RTPF, FT4, GLYHGB, ALB, TSH, B12, VD25, ECENZ #### [place] [address] Triage Register Nurse: Abelardo Castaneda MD MCHC (RBC) [Mass/Vol] 31.2 g/dL Normal 28.4-34.8 [facility] Comment on above: Performed By: #### E RTPF, FT4, GLYHGB, ALB, TSH, B12, VD25, ECENZ #### [place] [address] Triage Register Nurse: Abelardo Castaneda MD MCV (RBC) [Entitic vol] 99.6 fL Normal 82.6-102.9 [facility] Comment on above: Performed By: #### E RTPF, FT4, GLYHGB, ALB, TSH, B12, VD25, ECENZ #### [address] [address] Triage Register Nurse: Abelardo Castaneda MD NRBC Automated 0.0 per 100 WBC Normal 0.0 [facility] Comment on above: Performed By: #### E RTPF, FT4, GLYHGB, ALB, TSH, B12, VD25, ECENZ #### [address] [phone] Triage Register Nurse: Abelardo Castaneda MD Platelet mean volume (Bld) [Entitic vol] 11.4 fL Normal 8.1-13.5 [facility] Comment on above: Performed By: #### E RTPF, FT4, GLYHGB, ALB, TSH, B12, VD25, ECENZ #### [address] [address] Triage Register Nurse: Abelardo Castaneda MD Platelets (Bld) [#/Vol] 201 10*3/uL Normal 138-453 [facility] Comment on above: Performed By: #### E RTPF, FT4, GLYHGB, ALB, TSH, B12, VD25, ECENZ #### [address] [address] Triage Register Nurse: Abelardo Castaneda MD RBC (Bld) [#/Vol] 4.96 10*6/uL Normal 4.21-5.77 [facility] Comment on above: Performed By: #### E RTPF, FT4, GLYHGB, ALB, TSH, B12, VD25, ECENZ #### [address] [address] Triage Register Nurse: Abelardo Castaneda MD WBC (Bld) [#/Vol] 9.6 10*3/uL Normal 3.5-11.3 [facility] Comment on above: Performed By: #### E RTPF, FT4, GLYHGB, ALB, TSH, B12, VD25, ECENZ #### [address] [address] Triage Register Nurse: Abelardo Castaneda MD Blood Bank BILL FOR SERVICES PERFORMED Normal [facility] Comment on above: Performed By: #### E RTPF, FT4, GLYHGB, ALB, TSH, B12, VD25, ECENZ #### [address] [address] Triage Register Nurse: Abelardo Castaneda MD Trop/Myoglobinon 06-26-2022 Myoglobin [Mass/Vol] 27 ng/mL Low 28-72 [facility] Comment on above: Performed By: #### E RTPF, FT4, GLYHGB, ALB, TSH, B12, VD25, ECENZ #### [facility] [address] [place] [address] [id number] Triage Register Nurse: Abelardo Castaneda MD Troponin, High Sens 16 ng/L Normal 0-22 [facility] Comment on above: Result Comment: High Sensitivity Troponin values cannot be compared with other Troponin methodologies. Performed By: #### E RTPF, FT4, GLYHGB, ALB, TSH, B12, VD25, ECENZ #### [facility] [address] [place] [address] [phone] Triage Register Nurse: Abelardo Castaneda MD Type + Screenon 06-26-2022 Type + Screen Sample Expiration 06/29/2022,2359 Arm Band Number BE [id number] ABO/Rh(D) O POSITIVE Antibody Screen NEGATIVE Normal [facility] Comment on above: Performed By: #### T YS #### [facility] [address] [place] [address] [id number] Triage Register Nurse: Abelardo Castaneda MD Vitamin B12on 06-26-2022 Cobalamin (Vitamin B12) [Mass/Vol] 531 pg/mL Normal 232-1245 [facility] Comment on above: Performed By: #### E RTPF, FT4, GLYHGB, ALB, TSH, B12, VD25, ECENZ #### [employer] [address] [place] [address] [phone] Triage Register Nurse: Abelardo Castaneda MD Cobalamin (Vitamin B12) [Mass/Vol] 531 pg/mL 232 - 1245 pg/mL [facility] [employer] ([email or web address]) [facility] [employer] ([email or web address]) Vitamin D 25 Hydroxyon 06-26 25-hydroxyvitamin D3 [Mass/Vol] 14.5 ng/mL Low 29.9 - PINF ng/mL [facility] [employer] ([email or web address]) Comment on above: Reference Range: Vitamin D status Range Deficiency <20 ng/mL Mild Deficiency 20-30 ng/mL Sufficiency 30-100 ng/mL Toxicity >100 ng/mL Vitamin D 25 OHon 06-26-2022 Vitamin D 25 OH 14.5 ng/mL Low >29.9 [facility] Comment on above: Result Comment: Reference Range: Vitamin D status Range Deficiency <20 ng/mL Mild Deficiency 20-30 ng/mL Sufficiency 30-100 ng/mL Toxicity >100 ng/mL Performed By: #### E RTPF, FT4, GLYHGB, ALB, TSH, B12, VD25, ECENZ #### [facility] [address] [place] [address] Triage Register Nurse: Abelardo Castaneda MD XR CHEST PORTABLEon 06-26-19 [...] Boris Bocanegra MD 06/26/22 Final result Normal [facility] No acute process. [facility] EXAMINATION: ONE XRAY VIEW OF THE CHEST 06/26/2022 10:26 am COMPARISON: None. HISTORY: ORDERING SYSTEM PROVIDED HISTORY: burn, copd TECHNOLOGIST PROVIDED HISTORY: burn, copd FINDINGS: The lungs are hyperinflated without acute focal process. There is no effusion or pneumothorax. The cardiomediastinal silhouette is without acute process. The osseous structures are without acute process. [facility] Boris Bocanegra MD - 06/26/2022 EXAMINATION: ONE XRAY VIEW OF THE CHEST 06/26/2022 10:26 am COMPARISON: None. HISTORY: ORDERING SYSTEM PROVIDED HISTORY: burn, copd TECHNOLOGIST PROVIDED HISTORY: burn, copd FINDINGS: The lungs are hyperinflated without acute focal process. There is no effusion or pneumothorax. The cardiomediastinal silhouette is without acute process. The osseous structures are without acute process. IMPRESSION: No acute process. [employer] Phone: XR CHEST PORTABLEOrdered By: Boris Bocanegra on 06-26-2022 [employer] Phone: XR HAND LEFT (MIN 3 VIEWS)on [...] Stan Ruiz MD 06/26/22 Final result Normal [facility] No acute abnormality identified. Chronic appearing deformities of the 4th ray. [facility] EXAMINATION: THREE XRAY VIEWS OF THE LEFT HAND 06/26/2022 10:26 am COMPARISON: None. HISTORY: ORDERING SYSTEM PROVIDED HISTORY: bruising, fell TECHNOLOGIST PROVIDED HISTORY: bruising, fell FINDINGS: Chronic deformity of the 4th metacarpal is seen. Sharp flexion deformity at the proximal interphalangeal joint of the ring finger noted. No acute fracture is identified. No radiopaque foreign bodies are detected. [facility] Stan Ruiz MD - 06/26/2022 EXAMINATION: [...] Chronic appearing deformities of the 4th ray. [employer] Phone: XR HAND LEFT (MIN 3 VIEWS)Or dered By: Stan Ruiz on 06-26-2022 [employer] ([email or web address]) Work Phone: CNCOon 06-23-2022 [facility] Letter Text Normal [facility] Basic metabolic 2000 panelon 06-21-2022 Anion gap [Moles/Vol] 6 mmol/L Low 9-18 [facility] Comment on above: Order Comment: Speci men Type: BLOOD SPECIMEN Ordering Facility: [facility] Address: [address] [place], [place] [address] Performed By: #### 3 4528-0, 75302-2 #### [facility] CLIA [id number] [address] [place] [address] [place] Calcium [Mass/Vol] 8.5 mg/dL Normal 8.5-10.2 [facility] Comment on above: Order Comment: Speci men Type: BLOOD SPECIMEN Ordering Facility: [facility] Address: [address] Performed By: #### 3 4528-0, 43739-8 #### [facility] CLIA [id number] [address] [place] [address] [place] Chloride [Moles/Vol] 104 mmol/L Normal 97-105 [facility] Comment on above: Order Comment: Speci men Type: BLOOD SPECIMEN Ordering Facility: [facility] Address: [address] Performed By: #### 3 4528-0, 97550-5 #### [facility] CLIA [id number] [address] [place] [address] [place] CO2 [Moles/Vol] 31 mmol/L High 22-30 [facility] Comment on above: Order Comment: Speci men Type: BLOOD SPECIMEN Ordering Facility: [facility] Address: [address] Performed By: #### 3 4528-0, 83703-2 #### [facility] CLIA [id number] [address] [place] [facility] Creatinine [Mass/Vol] 0.76 mg/dL Normal 0.73-1.22 [facility] Comment on above: Order Comment: Leighann suazo Type: BLOOD SPECIMEN Ordering Facility: [facility] Address: [address] [place] [address] Performed By: #### 3 4528-0, 94579-5 #### [facility] CLIA [id number] [facility] [address] ESTIMATED GLOMERULAR FILTRATION RATE 99 mL/min/1.73m??? Normal >=60 [facility] Comment on above: Order Comment: Leighann suazo Type: BLOOD SPECIMEN Ordering Facility: [facility] Address: [address] [place] [address] Result Comment: [place] mated Glomerular Filtration Rate [...] actual GFR. Performed By: #### 3 4528-0, 37184-1 #### [facility] CLIA [id number] [facility] [address] [place] Glucose [Mass/Vol] 120 mg/dL High 74-99 [facility] Comment on above: Order Comment: Leighann suazo Type: BLOOD SPECIMEN Ordering Facility: [facility] Address: [address] [place] [address] Result Comment: The [place] [employer] (ADA) provides guidance for cutoff [...] Standards of Medical Care in Diabetes 2016, [place] [employer]. Diabetes Care. 2016.39(Suppl 1). Performed By: #### 3 4528-0, 64257-9 #### [facility] CLIA [id number] [address] [place] [address] [place] Potassium [Moles/Vol] 4.7 mmol/L Normal 3.7-5.1 [facility] Comment on above: Order Comment: Speci men Type: BLOOD SPECIMEN Ordering Facility: [facility] Address: [address] [place] [address] Performed By: #### 3 4528-0, 78429-8 #### [facility] CLIA [id number] [address] [place] [address] [place] Sodium [Moles/Vol] 141 mmol/L Normal 136-144 [facility] Comment on above: Order Comment: Speci men Type: BLOOD SPECIMEN Ordering Facility: [facility] Address: [address] [place] [address] Performed By: #### 3 4528-0, 21704-4 #### [facility] CLIA [id number] [address] [place] [address] [place] Urea nitrogen [Mass/Vol] 19 mg/dL Normal 9-24 [facility] Comment on above: Order Comment: Speci men Type: BLOOD SPECIMEN Ordering Facility: [facility] Address: [address] [place] [address] Performed By: #### 3 4528-0, 66109-1 #### [facility] CLIA [id number] [address] [place] [address] [place] CBC panel Auto (Bld)on 06-21 Erythrocyte distribution width (RBC) [Ratio] 13.5 % Normal 11.5-15.0 [facility] Comment on above: Order Comment: Speci men Type: BLOOD SPECIMEN Ordering Facility: [facility] Address: [address] [place] [address] Performed By: #### 3 4528-0, 55720-6 #### [facility] CLIA [id number] [address] [place] [address] [place] Hematocrit (Bld) [Volume fraction] 43.8 % Normal 39.0-51.0 [facility] Comment on above: Order Comment: Speci men Type: BLOOD SPECIMEN Ordering Facility: [facility] Address: [address] [place], [place] [address] Performed By: #### 3 4528-0, 49092-0 #### [facility] CLIA [id number] [address] [place] [address] [place] Hemoglobin (Bld) [Mass/Vol] 14.2 g/dL Normal 13.0-17.0 [facility] Comment on above: Order Comment: Speci men Type: BLOOD SPECIMEN Ordering Facility: [facility] Address: [address] [place], [place] [address] Performed By: #### 3 4528-0, 04342-9 #### [facility] CLIA [id number] [address] [place] [address] [place] MCH (RBC) [Entitic mass] 30.9 pg Normal 26.0-34.0 [facility] Comment on above: Order Comment: Speci men Type: BLOOD SPECIMEN Ordering Facility: [facility] Address: [address] [place], [place] [address] Performed By: #### 3 4528-0, 06689-5 #### [facility] CLIA [id number] [address] [place] [address] [place] MCHC (RBC) [Mass/Vol] 32.4 g/dL Normal 30.5-36.0 [facility] Comment on above: Order Comment: Speci men Type: BLOOD SPECIMEN Ordering Facility: [facility] Address: [address] [place], [place] [address] Performed By: #### 3 4528-0, 51017-1 #### [facility] CLIA [id number] [address] [place] [address] [place] MCV (RBC) [Entitic vol] 95.2 fL Normal 80.0-100.0 [facility] Comment on above: Order Comment: Speci men Type: BLOOD SPECIMEN Ordering Facility: [facility] Address: [address] [place] [address] Performed By: #### 3 4528-0, 69182-0 #### [facility] CLIA [id number] [address] [place] [address] [place] Nucleated RBC (Bld) [#/Vol] 10*3/uL Normal <0.01 [facility] Comment on above: Order Comment: Speci men Type: BLOOD SPECIMEN Ordering Facility: [facility] Address: [address] [place] [address] Performed By: #### 3 4528-0, 90092-7 #### [facility] CLIA [id number] [address] [place] [address] [place] Platelet mean volume (Bld) [Entitic vol] 11.8 fL Normal 9.0-12.7 [facility] Comment on above: Order Comment: Speci men Type: BLOOD SPECIMEN Ordering Facility: [facility] Address: [address] [place], [place] Performed By: #### 3 4528-0, 50371-2 #### [facility] CLIA [id number] [address] [place] [address] [place] Platelets (Bld) [#/Vol] 190 10*3/uL Normal 150-400 [facility] Comment on above: Order Comment: Speci men Type: BLOOD SPECIMEN Ordering Facility: [facility] Address: [address] [place] [address] Performed By: #### 3 4528-0, 05692-3 #### [facility] CLIA [id number] [address] [place] [address] [place] RBC (Bld) [#/Vol] 4.60 10*6/uL Normal 4.20-6.[address] [facility] Comment on above: Order Comment: Speci men Type: BLOOD SPECIMEN Ordering Facility: [facility] Address: [address] [place] [address] Performed By: #### 3 4528-0, 78759-2 #### [facility] CLIA [id number] [facility] [place] [address] [place] WBC (Bld) [#/Vol] 15.28 10*3/uL High 3.70-11.00 [facility] Comment on above: Order Comment: Speci men Type: BLOOD SPECIMEN Ordering Facility: [facility] Address: [address] [place] [address] Performed By: #### 3 4528-0, 42455-2 #### [facility] CLIA [id number] [address] [place] [address] [place] CNDSon 06-21-2022 CNDS HNO ID: [id number] Author: Akil Garza PA-C Service: Hospital Medicine Author Type: Physician [employer] Therapist Type: Discharge Summary Filed: 06/21/2022 1:17 PM Note Text: Attestation signed by Lina Ling MD at 06/21/2022 1:30 PM I have seen and evaluated the patient and discussed the case with the museum docent . I agree with the assessment and [...] F site. Has been referred to local secondary market manager. Number provided for him to make an appointment if he wishes REASON FOR HOSPITALIZATION: COPD PRINCIPAL DIAGNOSIS: COPD SECONDARY DIAGNOSIS: Principal Problem: COPD (chronic obstructive pulmonary disease) ([facility]) POA: Unknown Resolved Problems: * No resolved [...] if he wants to establish care at [facility] since there is not a location close to his house. Hx of PAD with stents. Denies hx of MT. Believes he was on statin in past and did not follow up. Started on atorvastatin. Instructed patient to follow up with both pulmonology and PCP as soon as possible. Number to scheduled with [facility] provided. OPERATIONS/PROCEDURE DURING THIS HOSPITALIZATION: * No surgery found * N/A CONSULTS DURING HOSPITALIZATION: Treatment Team: Attending Provider: Lina Ling MD Primary Service: [facility] 3 Physician [employer] Therapist: Akil Garza PA-C No orders of the [...] UP APPOINT (more content not included)... Normal [facility] NURSING PROGon 06-21-2022 NURSING PROG HNO ID: [id number] Author: Pearl Hendrix RN Service: ? Author Type: Registered Nurse Type: Nursing Progress Note Filed: 06/21/2022 3:37 PM Note Text: Other: Discharge paperwork and medications explained. Patient stated he had no questions. IV removed. Transport placed for patient. Normal [facility] Bacteria Bld Culton 06-20-19 Bacteria identified Cx Nom (Bld) CULTURE, BLOOD: No growth 5 days Normal [facility] Comment on above: Performed By: #### 3 4528-0, 15938-1 #### [facility] CLIA [id number] [address] [place] [address] [place] Bacteria Spec Resp Culton Bacteria identified Respiratory culture Nom (Unsp spec) ORGANISM ID: 1 Rare Pseudomonas aeruginosa Insignificant colony count. No further workup. ORGANISM ID: 2 Moderate normal respiratory alexandru GRAM STAIN: Moderate Gram positive cocci Many Polymorphonuclear leukocytes Abnormal [facility] Comment on above: Performed By: #### 3 4528-0, 28091-7 #### [facility] CLIA [id number] [address] [place] [address] [place] CBC W Auto Differential pane l (Bld)on 06-20-2022 Basophils (Bld) [#/Vol] 0.07 10*3/uL Normal <0.11 [facility] Comment on above: Order Comment: Speci men Type: BLOOD SPECIMEN Ordering Facility: [facility] Address: [address] [address] Performed By: #### 5 7021-8 #### [facility] CLIA [id number] [address] [place] [address] [place] Basophils/100 WBC (Bld) 0.4 % Normal [facility] Comment on above: Order Comment: Speci men Type: BLOOD SPECIMEN Ordering Facility: [facility] Address: [address] [address] Performed By: #### 5 7021-8 #### [facility] CLIA [id number] [address] [place] [address] [place] Differential cell count method Nom (Bld) Auto Normal [facility] Comment on above: Order Comment: Speci men Type: BLOOD SPECIMEN Ordering Facility: [facility] Address: [address] [place] [address] Performed By: #### 5 7021-8 #### [facility] CLIA [id number] [address] [place] [address] [place] Eosinophils (Bld) [#/Vol] 10*3/uL Normal <0.46 [facility] Comment on above: Order Comment: Speci men Type: BLOOD SPECIMEN Ordering Facility: [facility] Address: [address] [place] [address] Performed By: #### 5 7021-8 #### [facility] CLIA [id number] [address] [place] [address] [place] Eosinophils/100 WBC (Bld) 0.1 % Normal [facility] Comment on above: Order Comment: Speci men Type: BLOOD SPECIMEN Ordering Facility: [facility] Address: [address] [place], [place] [address] Performed By: #### 5 7021-8 #### [facility] CLIA [id number] [address] [place] [address] [place] Erythrocyte distribution width (RBC) [Ratio] 13.5 % Normal 11.5-15.0 [facility] Comment on above: Order Comment: Speci men Type: BLOOD SPECIMEN Ordering Facility: [facility] Address: [address] [place], [place] [address] Performed By: #### 5 7021-8 #### [facility] CLIA [id number] [address] [place] [address] [place] Hematocrit (Bld) [Volume fraction] 52.4 % High 39.0-51.0 [facility] Comment on above: Order Comment: Speci men Type: BLOOD SPECIMEN Ordering Facility: [facility] Address: [address] Performed By: #### 5 7021-8 #### [facility] CLIA [id number] [address] [place] [address] [place] Hemoglobin (Bld) [Mass/Vol] 17.2 g/dL High 13.0-17.0 [facility] Comment on above: Order Comment: Speci men Type: BLOOD SPECIMEN Ordering Facility: [facility] Address: [address] Performed By: #### 5 7021-8 #### [facility] CLIA [id number] [address] [place] [address] [place] Immature granulocytes (Bld) [#/Vol] 0.19 10*3/uL High <0.10 [facility] Comment on above: Order Comment: Speci men Type: BLOOD SPECIMEN Ordering Facility: [facility] Address: [address] Performed By: #### 5 7021-8 #### [facility] CLIA [id number] [address] [place] [address] [place] Immature granulocytes/100 WBC (Bld) 1.0 % Normal [facility] Comment on above: Order Comment: Speci men Type: BLOOD SPECIMEN Ordering Facility: [facility] Address: [address] [place] [address] Performed By: #### 5 7021-8 #### [facility] CLIA [id number] [address] [place] [address] [place] Lymphocytes (Bld) [#/Vol] 1.30 10*3/uL Normal 1.00-4.00 [facility] Comment on above: Order Comment: Speci men Type: BLOOD SPECIMEN Ordering Facility: [facility] Address: [address] [place] [address] Performed By: #### 5 7021-8 #### [facility] CLIA [id number] [address] [place] [address] [place] Lymphocytes/100 WBC (Bld) 7.0 % Normal [facility] Comment on above: Order Comment: Speci men Type: BLOOD SPECIMEN Ordering Facility: [facility] Address: [address] [place] [address] Performed By: #### 5 7021-8 #### [facility] CLIA [id number] [address] [place] [address] [place] MCH (RBC) [Entitic mass] 31.0 pg Normal 26.0-34.0 [facility] Comment on above: Order Comment: Speci men Type: BLOOD SPECIMEN Ordering Facility: [facility] Address: [address] [place] [address] Performed By: #### 5 7021-8 #### [facility] CLIA [id number] [address] [place] [address] [place] MCHC (RBC) [Mass/Vol] 32.8 g/dL Normal 30.5-36.0 [facility] Comment on above: Order Comment: Speci men Type: BLOOD SPECIMEN Ordering Facility: [facility] Address: [address] [place], [place] [address] Performed By: #### 5 7021-8 #### [facility] CLIA [id number] [address] [place] [address] [place] MCV (RBC) [Entitic vol] 94.4 fL Normal 80.0-100.0 [facility] Comment on above: Order Comment: Speci men Type: BLOOD SPECIMEN Ordering Facility: [facility] Address: [address] [place], [place] [address] Performed By: #### 5 7021-8 #### [facility] CLIA [id number] [address] [place] [address] [place] Monocytes (Bld) [#/Vol] 0.56 10*3/uL Normal <0.87 [facility] Comment on above: Order Comment: Speci men Type: BLOOD SPECIMEN Ordering Facility: [facility] Address: [address] [place], [place] Performed By: #### 5 7021-8 #### [facility] CLIA [id number] [address] [place] [address] [place] Monocytes/100 WBC (Bld) 3.0 % Normal [facility] Comment on above: Order Comment: Speci men Type: BLOOD SPECIMEN Ordering Facility: [facility] Address: [address] Performed By: #### 5 7021-8 #### [facility] CLIA [id number] [address] [place] [address] [place] Neutrophils (Bld) [#/Vol] 16.47 10*3/uL High 1.45-7.50 [facility] Comment on above: Order Comment: Speci men Type: BLOOD SPECIMEN Ordering Facility: [facility] Address: [address] [place] [address] Performed By: #### 5 7021-8 #### [facility] CLIA [id number] [address] [place] [address] [place] Neutrophils/100 WBC (Bld) 88.5 % Normal [facility] Comment on above: Order Comment: Speci men Type: BLOOD SPECIMEN Ordering Facility: [facility] Address: [address] [place], [place] Performed By: #### 5 7021-8 #### [facility] CLIA [id number] [address] [place] [address] [place] Nucleated RBC (Bld) [#/Vol] 10*3/uL Normal <0.01 [facility] Comment on above: Order Comment: Speci men Type: BLOOD SPECIMEN Ordering Facility: [facility] Address: [address] [place], [place] Performed By: #### 5 7021-8 #### [facility] CLIA [id number] [address] [place] [address] [place] Nucleated RBC/100 WBC (Bld) [Ratio] 0.0 /100 WBC Normal [facility] Comment on above: Order Comment: Speci men Type: BLOOD SPECIMEN Ordering Facility: [facility] Address: [address] Performed By: #### 5 7021-8 #### [facility] CLIA [id number] [address] [place] [address] [place] Platelet mean volume (Bld) [Entitic vol] 11.3 fL Normal 9.0-12.7 [facility] Comment on above: Order Comment: Speci men Type: BLOOD SPECIMEN Ordering Facility: [facility] Address: [address] Performed By: #### 5 7021-8 #### [facility] CLIA [id number] [address] [place] [address] [place] Platelets (Bld) [#/Vol] 241 10*3/uL Normal 150-400 [facility] Comment on above: Order Comment: Speci men Type: BLOOD SPECIMEN Ordering Facility: [facility] Address: [address] [place] [address] Performed By: #### 5 7021-8 #### [facility] CLIA [id number] [address] [place] [address] [place] RBC (Bld) [#/Vol] 5.55 10*6/uL Normal 4.20-6.[address] [facility] Comment on above: Order Comment: Speci men Type: BLOOD SPECIMEN Ordering Facility: [facility] Address: [address] Performed By: #### 5 7021-8 #### [facility] CLIA [id number] [address] [place] [address] [place] WBC (Bld) [#/Vol] 18.61 10*3/uL High 3.70-11.00 [facility] Comment on above: Order Comment: Speci men Type: BLOOD SPECIMEN Ordering Facility: [facility] Address: [address] [place] [address] Performed By: #### 5 7021-8 #### [facility] CLIA [id number] [address] [place] [address] [place] Comprehensive metabolic 2000 panelon 06-20-2022 Albumin [Mass/Vol] 4.0 g/dL Normal 3.9-4.9 [facility] Comment on above: Order Comment: Speci men Type: BLOOD SPECIMEN Ordering Facility: [facility] Address: [address] [place] [address] Performed By: #### 3 4528-0, 25367-9 #### [facility] CLIA [id number] [address] [place] [address] [place] ALP [Catalytic activity/Vol] 90 U/L Normal 38-113 [facility] Comment on above: Order Comment: Speci men Type: BLOOD SPECIMEN Ordering Facility: [facility] Address: [address] [place] [address] Performed By: #### 3 4528-0, 66648-7 #### [facility] CLIA [id number] [address] [place] [address] [place] ALT [Catalytic activity/Vol] 36 U/L Normal 10-54 [facility] Comment on above: Order Comment: Speci men Type: BLOOD SPECIMEN Ordering Facility: [facility] Address: [address] [place], [place] [address] Performed By: #### 3 4528-0, 39081-7 #### [facility] CLIA [id number] [facility] [place] [address] [place] Anion gap [Moles/Vol] 10 mmol/L Normal 9-18 [facility] Comment on above: Order Comment: Speci men Type: BLOOD SPECIMEN Ordering Facility: [facility] Address: [address] Performed By: #### 3 4528-0, 24626-1 #### [facility] CLIA [id number] [address] [place] [address] [place] AST [Catalytic activity/Vol] 20 U/L Normal 14-40 [facility] Comment on above: Order Comment: Speci men Type: BLOOD SPECIMEN Ordering Facility: [facility] Address: [address] Performed By: #### 3 4528-0, 87497-2 #### [facility] CLIA [id number] [address] [place] [address] [place] Bilirubin [Mass/Vol] 0.6 mg/dL Normal 0.2-1.3 [facility] Comment on above: Order Comment: Speci men Type: BLOOD SPECIMEN Ordering Facility: [facility] Address: [address] Performed By: #### 3 4528-0, 51930-2 #### [facility] CLIA [id number] [address] [place] [address] [place] Calcium [Mass/Vol] 9.2 mg/dL Normal 8.5-10.2 [facility] Comment on above: Order Comment: Speci men Type: BLOOD SPECIMEN Ordering Facility: [facility] Address: [address] [place] [address] Performed By: #### 3 4528-0, 23511-8 #### [facility] CLIA [id number] [address] [place] [address] [place] Chloride [Moles/Vol] 101 mmol/L Normal 97-105 [facility] Comment on above: Order Comment: Speci men Type: BLOOD SPECIMEN Ordering Facility: [facility] Address: [address] [address] Performed By: #### 3 4528-0, 96090-6 #### [facility] CLIA [id number] [address] [place] [address] [place] CO2 [Moles/Vol] 30 mmol/L Normal 22-30 [facility] Comment on above: Order Comment: Speci men Type: BLOOD SPECIMEN Ordering Facility: [facility] Address: [address] [place] [address] Performed By: #### 3 4528-0, 01001-5 #### [facility] CLIA [id number] [address] [place] [address] [facility] Creatinine [Mass/Vol] 0.99 mg/dL Normal 0.73-1.22 [facility] Comment on above: Order Comment: Speci men Type: BLOOD SPECIMEN Ordering Facility: [facility] Address: [address] [place] [address] Performed By: #### 3 4528-0, 10808-2 #### [facility] CLIA [id number] [address] [place] [address] [place] ESTIMATED GLOMERULAR FILTRATION RATE 84 mL/min/1.73m??? Normal >=60 [facility] Comment on above: Order Comment: Speci men Type: BLOOD SPECIMEN Ordering Facility: [facility] Address: [address] [place] [address] Result Comment: [place] mated Glomerular Filtration Rate [...] actual GFR. Performed By: #### 3 4528-0, 69846-4 #### [facility] CLIA [id number] [address] [place] [address] [place] Glucose [Mass/Vol] 164 mg/dL High 74-99 [facility] Comment on above: Order Comment: Speci men Type: BLOOD SPECIMEN Ordering Facility: [facility] Address: [address] [place] [address] Result Comment: The [place] [employer] (ADA) provides guidance for cutoff [...] Standards of Medical Care in Diabetes 2016, [place] [employer]. Diabetes Care. 2016.39(Suppl 1). Performed By: #### 3 4528-0, 36509-0 #### [facility] CLIA [id number] [facility] [place] [address] [place] Potassium [Moles/Vol] 4.9 mmol/L Normal 3.7-5.1 [facility] Comment on above: Order Comment: Leighann suazo Type: BLOOD SPECIMEN Ordering Facility: [facility] Address: [address] [place], [place] [address] Performed By: #### 3 4528-0, 35859-4 #### [facility] CLIA [id number] [address] [place] [address] [place] Protein [Mass/Vol] 7.3 g/dL Normal 6.3-8.0 [facility] Comment on above: Order Comment: Leighann suazo Type: BLOOD SPECIMEN Ordering Facility: [facility] Address: [address] [place] [address] Performed By: #### 3 4528-0, 23058-2 #### [facility] CLIA [id number] [address] [place] Sodium [Moles/Vol] 141 mmol/L Normal 136-144 [facility] Comment on above: Order Comment: Speci men Type: BLOOD SPECIMEN Ordering Facility: [facility] Address: [address] [place], [place] [address] Performed By: #### 3 4528-0, 13262-7 #### [facility] CLIA [id number] [address] [place] [address] Urea nitrogen [Mass/Vol] 23 mg/dL Normal 9-24 [facility] Comment on above: Order Comment: Speci men Type: BLOOD SPECIMEN Ordering Facility: [facility] Address: [address] [place] [address] Performed By: #### 3 4528-0, 66497-9 #### [facility] CLIA [id number] [address] [place] [address] ED NOTEon 06-20-2022 ED NOTE HNO ID: [id number] Author: Mamie Lao RN Service: ? Author Type: Registered Nurse Type: ED Notes Filed: 06/20/2022 4:37 PM Note Text: Bed: E18-04 Expected date: Expected time: Means of arrival: Comments: Normal [facility] ED NOTE HNO ID: [id number] Author: Mamie Lao RN Service: Emergency Medicine [...] checks completed, call light in reach. Normal [facility] ED NOTE HNO ID: [id number] Author: Mamie Lao RN Service: Emergency Medicine Author Type: Registered Nurse Type: ED Notes Filed: 06/20/2022 3:13 PM Note Text: Report from JACQUELINE Evans. Normal [facility] ED NOTE HNO ID: [id number] Author: Priyanka Hammond Service: Emergency Medicine Author Type: Surgical Services Director and Candy Catcher Type: ED Notes Filed: 06/20/2022 12:55 PM Note Text: RT to bedside. Pt placed on Zoll as precaution due to HR above 130 BPM sustained Normal [facility] ED PROV NOTEon 06-20-2022 ED PROV NOTE HNO ID: [id number] Author: Lillian Maxwell MD Service: Emergency Medicine [...] discomfort. Patient had been seeing doctors [facility] without any significant improvement of his symptoms. [...] diarrhea. History provided by: Spouse and patient cath lab tech used: No No past medical history on [...] DANIA H (more content not included)... Normal [facility] FLUABV+SARS-CoV-2+RSV Pnl Re sp ANGELA+probeon 06-20-2022 FLUABV+SARS-CoV-2+RSV Pnl Resp ANGELA+probe COVID 19 RESULT: Not detected The method used is RT-PCR or an equivalent NAAT method. Reference Range(the expected result in uninfected individuals): Not detected INFLUENZA A PCR: Not detected INFLUENZA B PCR: Not detected RSV PCR: Not detected Normal [facility] Comment on above: Performed By: #### 3 4528-0, 60664-4 #### [facility] CLIA [id number] [address] [facility] [address] [place] HIGH SENSITIVITY TROPONIN T (INITIAL)on 06-20-2022 HIGH SENSITIVITY DANIA 14 ng/L High <12 [facility] Comment on above: Order Comment: Speci men Type: BLOOD SPECIMEN Ordering Facility: [facility] Address: [address] [id number] Result Comment: When assessing risk for acute [...] day MACE. Performed By: #### 3 4528-0, 50312-9 #### [facility] CLIA [id number] [address] [place] HIGH SENSITIVITY TROPONIN T (SECOND)on 06-20-2022 HIGH SENSITIVITY DANIA 13 ng/L High <12 [facility] Comment on above: Order Comment: Leighann suazo Type: BLOOD SPECIMEN Ordering Facility: [facility] Address: [address] [place] [address] Result Comment: When assessing risk for acute [...] 30 day MACE. Performed By: #### L [id number] #### [facility] CLIA [id number] [address] HIGH SENSITIVITY TROPONIN T (THIRD) 3 HRS AFTER INITIALon 06-20-2022 HIGH SENSITIVITY DANIA 12 ng/L High <12 [facility] Comment on above: Order Comment: Leighann suazo Type: BLOOD SPECIMEN Ordering Facility: [facility] Address: [address] [place] [address] Result Comment: When assessing risk for acute [...] day MACE. Performed By: #### 3 4528-0, 77049-9 #### [facility] CLIA [id number] [address] [place], [place] [address] [id number] [place] HISTORY PHYSICALon HISTORY PHYSICAL HNO ID: [id number] Author: Davy De Souza MD Service: Hospital [...] He was admitted to the hospital in [place] and treated for COPD exacerbation and pneumonia [...] within normal limits Narrative: Meter ID:ED Location:ED [facility], [address] [place] [address], [address] HIGH SENSITIVITY TROPONIN T (THIRD) 3 HRS [...] laboratory APTT reagent in use throughout the [facility]. PROTHROMBIN TIME/PT - Normal EXPEDITED COVID, FLU A/B + RSV - Normal Narrative: This test has been authorized by FDA under an Emergency Use Authorization (EUA). Test performed by [facility], [facility] [place], [address] [address]. LACTATE - ED (POC) ARTERIAL BLOOD GAS [...] for c (more content not included)... Normal [facility] Magnesium [facility] 06-20 Magnesium [Mass/Vol] 2.2 mg/dL Normal 1.7-2.3 [facility] Comment on above: Order Comment: Speci lakeisha Type: BLOOD SPECIMEN Ordering Facility: [facility] Address: [address] [place] [address] Performed By: #### 3 4528-0, 36049-4 #### [facility] CLIA [id number] [address] [place] [address] [place] [facility] Natriuretic peptide.B prohormone N-Terminal [Mass/Vol] 124 pg/mL Normal <125 [facility] Comment on above: Order Comment: Leighann suazo Type: BLOOD SPECIMEN Ordering Facility: [facility] Address: [address] [place], [place] [address] Performed By: #### 3 4528-0, 72815-8 #### [facility] CLIA [id number] [address] [place] [address] [place] PT panel Coag (PPP)on 2022 INR Coag (PPP) [Relative time] 1.0 {INR} Normal 0.9-1.3 [facility] Comment on above: Order Comment: Leighann suazo Type: BLOOD SPECIMEN Ordering Facility: [facility] Address: [address] [place] [address] Result Comment: Trisha min K Antagonist (VKA) Therapeutic Range: INR 2 to 3 (Target INR of 2.5) Note: For patients treated with VKA drugs, such as warfarin, the [place] [employer] 2012 Guideline recommends [...] 2.5 to 3.5 (target INR of 3). Mike GH, et al. Chest 2012, 141:7S-47S Bishop HOLDEN et al. [facility] 2017, 70: 252-289 Performed By: #### 3 4528-0, 32318-3 #### [facility] [place] [id number] [address] [place] [address] [place] PT Coag (PPP) [Time] 10.3 s Normal 9.7-13.0 [facility] Comment on above: Order Comment: Speci men Type: BLOOD SPECIMEN Ordering Facility: [facility] Address: [address] [place], [place] [id number] Performed By: #### 3 4528-0, 20179-7 #### [facility] [place] [id number] [address] [place], [place] [id number] [place] XR CHEST 1V [...] acute bony abnormalities. IMPRESSION: No acute findings. Daily Sales Audit Clerk: WJ Transcribe Date/Time: Jun 20 2022 1:17P Dictated by : TANA GUERRA MD This examination was interpreted and the report reviewed and electronically signed by: TANA GUERRA MD on Jun 20 2022 1:19PM EST [id number] CN Normal [facility] aPTT PPPon 06-20-2022 aPTT Coag (PPP) [Time] 23.4 s Normal 23.0-32.4 [facility] Comment on above: Order Comment: Speci men Type: BLOOD SPECIMEN Ordering Facility: [facility] Address: [address] [place] [address] Performed By: #### 3 4528-0, 26443-7 #### [facility] CLIA [id number] [address] [place] [address] [place] CBC AUTO DIFFon 06-09-2022 BASO # 0.0 103/ul Normal 0.0-0.1 [facility] Comment on above: Performed By: #### C BC #### [facility] [address] [place] [address] Dr. Jossy Porras Basophils/100 WBC (Bld) 0.1 % Critically low 0.2-2.0 [facility] Comment on above: Performed By: #### C BC #### [facility] [address] [address] [address] Jossy Porras EO # 0.0 103/ul Normal 0.0-0.7 [facility] Comment on above: Performed By: #### C BC #### [facility] [address] [place] [address] Dr. Jossy Porras Eosinophils/100 WBC (Bld) 0.1 % Critically low 0.9-7.0 [facility] Comment on above: Performed By: #### C BC #### [facility] [address] [address] [address] Jossy Porras Erythrocyte distribution width (RBC) [Ratio] 13.4 % Normal 11.0-15.0 [facility] Comment on above: Performed By: #### C BC #### [facility] [address] [address] [address] Jossy Porras Hematocrit (Bld) [Volume fraction] 43.9 % Normal 42.0-54.0 [facility] Comment on above: Performed By: #### C BC #### [facility] [address] [address] [address] Jossy Porras Hemoglobin (Bld) [Mass/Vol] 13.9 g/dL Critically low 14.0-18.0 [facility] Comment on above: Performed By: #### C BC #### [facility] [address] [place] [address] Dr. Jossy Porras IG # 0.10 10e3/ul Critically high 0.00-0.03 [facility] Comment on above: Performed By: #### C BC #### [facility] [address] [place] [address] Dr. Jossy Porras IG % 0.7 % Critically high 0.0-0.5 [facility] Comment on above: Performed By: #### C BC #### [facility] [address] [place] [address] Dr. Jossy Porras LYMPH # 0.8 103/ul Critically low 1.2-3.8 [facility] Comment on above: Performed By: #### C BC #### [facility] [address] [place] [address] Dr. Jossy Porras Lymphocytes/100 WBC (Bld) 5.4 % Critically low 20.5-60.0 [facility] Comment on above: Performed By: #### C BC #### [facility] [address] [place] [address] Dr. Jossy Porras MANUAL DIFF REQ NO Normal [facility] Comment on above: Performed By: #### C BC #### [facility] [address] [address] [address] Jossy Porras MCH (RBC) [Entitic mass] 31.0 pg Normal 25.9-34.0 [facility] Comment on above: Performed By: #### C BC #### [facility] [address] [place] [address] Dr. Jossy Porras MCHC (RBC) [Mass/Vol] 31.7 g/dL Normal 29.9-35.2 [facility] Comment on above: Performed By: #### C BC #### [facility] [address] [place] [address] Dr. Jossy Porras MCV (RBC) [Entitic vol] 97.8 fL Critically high 80.0-94.0 [facility] Comment on above: Performed By: #### C BC #### [facility] [address] [place] [address] Dr. Jossy Porras MONO # 0.4 103/ul Normal 0.3-0.8 [facility] Comment on above: Performed By: #### C BC #### [facility] [address] [place] [address] Dr. Jossy Porras Monocytes/100 WBC (Bld) 2.6 % Normal 1.7-12.0 [facility] Comment on above: Performed By: #### C BC #### [facility] [address] [place] [address] Dr. Jossy Porras NEUT # 14.0 103/ul Critically high 1.4-6.5 [facility] Comment on above: Performed By: #### C BC #### [facility] [address] [place] [address] Dr. Jossy Porras Neutrophils/100 WBC (Bld) 91.1 % Critically high 43.0-75.0 [facility] Comment on above: Performed By: #### C BC #### [facility] [address] [place] [address] Dr. Jossy Porras Platelet mean volume (Bld) [Entitic vol] 12.4 fL Normal 9.5-13.5 [facility] Comment on above: Performed By: #### C BC #### [facility] [address] [address] [address] Jossy Porras PLT 159 103/ul Normal 150-450 [facility] Comment on above: Performed By: #### C BC #### [facility] [address] [address] [address] Jossy Porras RBC 4.49 106/ul Critically low 4.70-6.10 [facility] Comment on above: Performed By: #### C BC #### [facility] [address] [address] [address] Jossy Porras WBC 15.3 103/ul Critically high 4.0-11.0 [facility] Comment on above: Performed By: #### C BC #### [facility] [address] [place] [address] Dr. Jossy Porras PROF 14(COMP METB)on 023 Albumin [Mass/Vol] 2.9 g/dL Critically low 3.4-5.0 [facility] Comment on above: Performed By: #### C BC #### [facility] [address] [place] [address] Dr. Jossy Porras Albumin/Globulin [Mass ratio] 1.0 {ratio} Normal [facility] Comment on above: Performed By: #### C BC #### [facility] [address] [place] [address] Dr. Jossy Porras ALP [Catalytic activity/Vol] 75 U/L Normal 46-116 [facility] Comment on above: Performed By: #### C BC #### [facility] [address] [place] [address] Dr. Jossy Porras ALT [Catalytic activity/Vol] 37 U/L Normal 16-63 [facility] Comment on above: Performed By: #### C BC #### [facility] [address] [place] [address] Dr. Jossy Porras Anion gap [Moles/Vol] 10.8 mmol/L Normal [facility] Comment on above: Performed By: #### C BC #### [facility] [address] [place] [address] Dr. Jossy Porras AST [Catalytic activity/Vol] 17 U/L Normal 15-37 [facility] Comment on above: Performed By: #### C BC #### [facility] [address] [place] [address] Dr. Jossy Porras Bilirubin [Mass/Vol] 0.3 mg/dL Normal 0.2-1.0 [facility] Comment on above: Performed By: #### C BC #### [facility] [address] [place] [address] Dr. Jossy Porras Calcium [Mass/Vol] 8.6 mg/dL Normal 8.5-10.1 [facility] Comment on above: Performed By: #### C BC #### [facility] [address] [place] [address] Dr. Jossy Porras Chloride [Moles/Vol] 101 mmol/L Normal 98-107 [facility] Comment on above: Performed By: #### C BC #### [facility] [address] [place] [address] Dr. Jossy Porras CO2 [Moles/Vol] 30.7 mmol/L Normal 21.0-32.0 [facility] Comment on above: Performed By: #### C BC #### [facility] [address] [place] [address] Dr. Jossy Porras Creatinine [Mass/Vol] 0.92 mg/dL Normal 0.70-1.30 [facility] Comment on above: Performed By: #### C BC #### [facility] [address] [place] [address] Dr. Jossy Porras EGFR-AF BAHAMIAN >60 Normal >=60 [facility] Comment on above: Performed By: #### C BC #### [facility] [address] [place] [address] Dr. Jossy Porras EGFR-NON AF BAHAMIAN >60 Normal >=60 [facility] Comment on above: Performed By: #### C BC #### [facility] [address] [place] [address] Dr. Jossy Porras Globulin (S) [Mass/Vol] 3.0 g/dL Normal [facility] Comment on above: Performed By: #### C BC #### [facility] [address] [place] [address] Dr. Jossy Porras Glucose [Mass/Vol] 144 mg/dL Critically high 74-106 [facility] Comment on above: Performed By: #### C BC #### [facility] [address] [address] [address] Jossy Porras Potassium [Moles/Vol] 4.5 mmol/L Normal 3.5-5.1 [facility] Comment on above: Performed By: #### C BC #### [facility] [address] [place] [address] Dr. Jossy Porras Protein [Mass/Vol] 5.9 g/dL Critically low 6.4-8.2 [facility] Comment on above: Performed By: #### C BC #### [facility] [address] [place] [address] Dr. Jossy Porras Sodium [Moles/Vol] 138 mmol/L Normal 136-145 [facility] Comment on above: Performed By: #### C BC #### [facility] [address] [place] [address] Dr. Jossy Porras Urea nitrogen [Mass/Vol] 19.0 mg/dL Critically high 7.0-18.0 [facility] Comment on above: Performed By: #### C BC #### [facility] [address] [place] [address] Dr. Jossy Porras Urea nitrogen/Creatinine [Mass ratio] 20.7 mg/mg Normal [facility] Comment on above: Performed By: #### C BC #### [facility] [address] [id number] Jossy Porras CBC AUTO DIFFon 06-08-2022 BASO # 0.0 103/ul Normal 0.0-0.1 [facility] Comment on above: Performed By: #### C BC ####[facility] [address] [address]Dr. Jossy Porras Basophils/100 WBC (Bld) 0.1 % Critically low 0.2-2.0 [facility] Comment on above: Performed By: #### C BC ####[facility] [address] [place], [place] [address]Dr. Jossy Porras EO # 0.0 103/ul Normal 0.0-0.7 [facility] Comment on above: Performed By: #### C BC ####[facility] [address] [place], [place] [address]Dr. Jossy Porras Eosinophils/100 WBC (Bld) 0.0 % Critically low 0.9-7.0 [facility] Comment on above: Performed By: #### C BC ####[facility] [address] [place], [place] [address]Dr. Jossy Porras Erythrocyte distribution width (RBC) [Ratio] 13.2 % Normal 11.0-15.0 [facility] Comment on above: Performed By: #### C BC ####[facility] [address] [place], [place] [address]Dr. Jossy Porras Hematocrit (Bld) [Volume fraction] 46.4 % Normal 42.0-54.0 [facility] Comment on above: Performed By: #### C BC ####[facility] [address] [place], [place] [address]Dr. Jossy Porras Hemoglobin (Bld) [Mass/Vol] 14.2 g/dL Normal 14.0-18.0 [facility] Comment on above: Performed By: #### C BC ####[facility] [address] [place], [place] [address]Dr. Jossy Porras IG # 0.04 10e3/ul Critically high 0.00-0.03 [facility] Comment on above: Performed By: #### C BC ####[facility] [address] [place], [place] [address]Dr. Jossy Porras IG % 0.5 % Normal 0.0-0.5 [facility] Comment on above: Performed By: #### C BC ####[facility] [address] [place], [place] [address]Dr. Jossy Porras LYMPH # 0.6 103/ul Critically low 1.2-3.8 [facility] Comment on above: Performed By: #### C BC ####[facility] [address] [address]Dr. Jossy Porras Lymphocytes/100 WBC (Bld) 7.3 % Critically low 20.5-60.0 [facility] Comment on above: Performed By: #### C BC ####[facility] [address] [address]Dr. Jossy Porras MANUAL DIFF REQ NO Normal [facility] Comment on above: Performed By: #### C BC ####[facility] [address] [address]Dr. Jossy Porras MCH (RBC) [Entitic mass] 30.4 pg Normal 25.9-34.0 [facility] Comment on above: Performed By: #### C BC ####[facility] [address] [place], [place] [address]Dr. Jossy Porras MCHC (RBC) [Mass/Vol] 30.6 g/dL Normal 29.9-35.2 [facility] Comment on above: Performed By: #### C BC ####[facility] [address] [place], [place] [address]Dr. Jossy Porras MCV (RBC) [Entitic vol] 99.4 fL Critically high 80.0-94.0 [facility] Comment on above: Performed By: #### C BC ####[facility] [address] [address]Dr. Jossy Porras MONO # 0.1 103/ul Critically low 0.3-0.8 [facility] Comment on above: Performed By: #### C BC ####[facility] [address] [place], [place] [address]Dr. Jossy Porras Monocytes/100 WBC (Bld) 1.4 % Critically low 1.7-12.0 [facility] Comment on above: Performed By: #### C BC ####[facility] [address] [place], [place] [address]Dr. Jossy Porras NEUT # 7.1 103/ul Critically high 1.4-6.5 [facility] Comment on above: Performed By: #### C BC ####[facility] [address] [id number]. Jossy Porras Neutrophils/100 WBC (Bld) 90.7 % Critically high 43.0-75.0 [facility] Comment on above: Performed By: #### C BC ####[facility] [address] [address]Dr. Jossy Porras Platelet mean volume (Bld) [Entitic vol] 11.9 fL Normal 9.5-13.5 [facility] Comment on above: Performed By: #### C BC ####[facility] [address] [address]Dr. Jossy Porras PLT 156 103/ul Normal 150-450 [facility] Comment on above: Performed By: #### C BC ####[facility] [address] [address]Dr. Jossy Porras RBC 4.67 106/ul Critically low 4.70-6.10 [facility] Comment on above: Performed By: #### C BC ####[facility] [address] [address]Dr. Jossy Porras WBC 7.8 103/ul Normal 4.0-11.0 [facility] Comment on above: Performed By: #### C BC ####[facility] [address] [id number]. Jsosy Porras CT CHEST WO CONon 06-08-2022 CT [...] by: MARIBETH CEDILLO Date: 2022-06-08 10:52 Normal [facility] PROF 14(COMP METB)on 023 Albumin [Mass/Vol] 3.0 g/dL Critically low 3.4-5.0 [facility] Comment on above: Performed By: #### C VDTBH #### [facility] [address] [place] [address] Dr. Jossy Porras Albumin/Globulin [Mass ratio] 0.9 {ratio} Normal [facility] Comment on above: Performed By: #### C VDTBH #### [facility] [address] [place] [address] Dr. Jossy Porras ALP [Catalytic activity/Vol] 84 U/L Normal 46-116 [facility] Comment on above: Performed By: #### C VDTBH #### [facility] [address] [place] [address] Dr. Jossy Porras ALT [Catalytic activity/Vol] 40 U/L Normal 16-63 [facility] Comment on above: Performed By: #### C VDTBH #### [facility] [address] [place] [address] Dr. Jossy Porras Anion gap [Moles/Vol] 13.8 mmol/L Normal [facility] Comment on above: Performed By: #### C VDTBH #### [facility] [address] [place] [address] Dr. Jossy Porras AST [Catalytic activity/Vol] 30 U/L Normal 15-37 [facility] Comment on above: Performed By: #### C VDTBH #### [facility] [address] [place] [address] Dr. Jossy Porras Bilirubin [Mass/Vol] 0.5 mg/dL Normal 0.2-1.0 [facility] Comment on above: Performed By: #### C VDTBH #### [facility] [address] [place] [address] Dr. Jossy Porras Calcium [Mass/Vol] 8.6 mg/dL Normal 8.5-10.1 [facility] Comment on above: Performed By: #### C VDTBH #### [facility] [address] [place] [address] Dr. Jossy Porras Chloride [Moles/Vol] 103 mmol/L Normal 98-107 [facility] Comment on above: Performed By: #### C VDTBH #### [facility] [address] [place] [address] Dr. Jossy Porras CO2 [Moles/Vol] 28.0 mmol/L Normal 21.0-32.0 [facility] Comment on above: Performed By: #### C VDTBH #### [facility] [address] [place] [address] Dr. Jossy Porras Creatinine [Mass/Vol] 1.06 mg/dL Normal 0.70-1.30 [facility] Comment on above: Performed By: #### C VDTBH #### [facility] [address] [place] [address] Dr. Jossy Porras EGFR-AF BAHAMIAN >60 Normal >=60 [facility] Comment on above: Performed By: #### C VDTBH #### [facility] [address] [place] [address] Dr. Jossy Porras EGFR-NON AF BAHAMIAN >60 Normal >=60 [facility] Comment on above: Performed By: #### C VDTBH #### [facility] [address] [place] [address] Dr. Jossy Porras Globulin (S) [Mass/Vol] 3.5 g/dL Normal [facility] Comment on above: Performed By: #### C VDTBH #### [facility] [address] [place] [address] Dr. Jossy Porras Glucose [Mass/Vol] 137 mg/dL Critically high 74-106 [facility] Comment on above: Performed By: #### C VDTBH #### [facility] [address] [address] [address] Jossy Porras Potassium [Moles/Vol] 4.8 mmol/L Normal 3.5-5.1 [facility] Comment on above: Performed By: #### C VDTBH #### [facility] [address] [address] [address] Jossy Porras Protein [Mass/Vol] 6.5 g/dL Normal 6.4-8.2 [facility] Comment on above: Performed By: #### C VDTBH #### [facility] [address] [address] [address] Jossy Porras Sodium [Moles/Vol] 140 mmol/L Normal 136-145 [facility] Comment on above: Performed By: #### C VDTBH #### [facility] [address] [address] [address] Jossy Porras Urea nitrogen [Mass/Vol] 14.0 mg/dL Normal 7.0-18.0 [facility] Comment on above: Performed By: #### C VDTBH #### [facility] [address] [place] [address] Dr. Jossy Porras Urea nitrogen/Creatinine [Mass ratio] 13.2 mg/mg Normal [facility] Comment on above: Performed By: #### C VDTBH #### [facility] [address] [address] [address] Jossy Porras BNPon 06-07-2022 Natriuretic peptide B (Bld) [Mass/Vol] 82.0 pg/mL Normal <=900.0 [facility] Comment on above: Performed By: #### C MP, BNP, HSTROPN ####[facility] [address] [address]Dr. Jossy Porras CBC AUTO DIFFon 06-07-2022 BASO # 0.1 103/ul Normal 0.0-0.1 [facility] Comment on above: Performed By: #### C BC ####[facility] [address] [id number]. Jossy Porras Basophils/100 WBC (Bld) 0.6 % Normal 0.2-2.0 [facility] Comment on above: Performed By: #### C BC ####[facility] [address] [place], [place] [id number]. Jossy Porras EO # 0.1 103/ul Normal 0.0-0.7 [facility] Comment on above: Performed By: #### C BC ####[facility] [address] [place], [place] [address]Dr. Jossy Porras Eosinophils/100 WBC (Bld) 1.5 % Normal 0.9-7.0 [facility] Comment on above: Performed By: #### C BC ####[facility] [address] [place], [place] [address]Dr. Jossy Porras Erythrocyte distribution width (RBC) [Ratio] 13.4 % Normal 11.0-15.0 [facility] Comment on above: Performed By: #### C BC ####[facility] [address] [place], [place] [address]Dr. Jossy Porras Hematocrit (Bld) [Volume fraction] 53.2 % Normal 42.0-54.0 [facility] Comment on above: Performed By: #### C BC ####[facility] [address] [place], [place] [address]Dr. Jossy Porras Hemoglobin (Bld) [Mass/Vol] 16.4 g/dL Normal 14.0-18.0 [facility] Comment on above: Performed By: #### C BC ####[facility] [address] [place], [place] [address]Dr. Jossy Porras IG # 0.03 10e3/ul Normal 0.00-0.03 [facility] Comment on above: Performed By: #### C BC ####[facility] [address] [place], [place] [address]Dr. Jossy Porras IG % 0.3 % Normal 0.0-0.5 [facility] Comment on above: Performed By: #### C BC ####[facility] [address] [id number]. Jossy Porras LYMPH # 2.8 103/ul Normal 1.2-3.8 [facility] Comment on above: Performed By: #### C BC ####[facility] [address] [id number]. Jossy Vern Lymphocytes/100 WBC (Bld) 31.3 % Normal 20.5-60.0 [facility] Comment on above: Performed By: #### C BC ####[facility] [address] [id number]. Amiemyron Porras MANUAL DIFF REQ NO Normal [facility] Comment on above: Performed By: #### C BC ####[facility] [facility] Ajpfzeyssy7[address] [place] [id number]. Jossy Vern MCH (RBC) [Entitic mass] 30.7 pg Normal 25.9-34.0 [facility] Comment on above: Performed By: #### C BC ####[facility] Eyupnyvfgy[address] [place] [id number]. Jossy Porras MCHC (RBC) [Mass/Vol] 30.8 g/dL Normal 29.9-35.2 [facility] Comment on above: Performed By: #### C BC ####[facility] Ecyjqncmwp[address] [place] [id number]. Amiemyron Vern MCV (RBC) [Entitic vol] 99.6 fL Critically high 80.0-94.0 [facility] Comment on above: Performed By: #### C BC ####[facility] Qxmovhcpph23[address] [place] [id number]. Jossy Vern MONO # 0.5 103/ul Normal 0.3-0.8 [facility] Comment on above: Performed By: #### C BC ####[facility] Jzzmopsqhw8536 [place] [id number]. Jossy Porras Monocytes/100 WBC (Bld) 5.9 % Normal 1.7-12.0 [facility] Comment on above: Performed By: #### C BC ####[facility] Wntjtotqkk8230 [place] [id number]. Jossy Porras NEUT # 5.3 103/ul Normal 1.4-6.5 [facility] Comment on above: Performed By: #### C BC ####[facility] Yvfbztsbeo0[address] [place] [id number]. Jossy Porras Neutrophils/100 WBC (Bld) 60.4 % Normal 43.0-75.0 [facility] Comment on above: Performed By: #### C BC ####[facility] Mtqfezcrml2[address] [place] [id number]. Jossy Porras Platelet mean volume (Bld) [Entitic vol] 12.2 fL Normal 9.5-13.5 [facility] Comment on above: Performed By: #### C BC ####[facility] Bstqsrgzdp8[address] [place] [id number]. Jossy Porras PLT 199 103/ul Normal 150-450 [facility] Comment on above: Performed By: #### C BC ####[facility] Hqqymdddpy8583 [place] [id number]. Jossy Porras RBC 5.34 106/ul Normal 4.70-6.10 [facility] Comment on above: Performed By: #### C BC ####[facility] Sjqolkzjja45[address] [place] [id number]. Jossy Porras WBC 8.8 103/ul Normal 4.0-11.0 [facility] Comment on above: Performed By: #### C BC ####[facility] Xrehzphqkv5613 [place] [phone]. Jossy Vern CULTURE BLOODon 06-07-2022 Microscopic examination of blood, culture Culture Observations: NO GROWTH AT 5 DAYS. Normal [facility] Comment on above: Performed By: #### B LDCX2 #### [facility] [address] [place], [place] [address] Dr. Jossy Porras Microscopic examination of blood, culture Culture Observations: NO GROWTH AT 5 DAYS. Normal [facility] Comment on above: Performed By: #### B LDCX1 ####[facility] R[address]ocsqkp[address] [place] [address]Dr. Jossy Porras Covid-19 PCR (CVDTB)on SARS-CoV-2 (COVID-19) RNA ANGELA+probe Ql (Unsp spec) Not detected Normal NOT DETECTED [facility] Comment on above: Result Comment: When [...] for this test is supported by the [place] of Health and Human Service's declaration that [...] be used). Performed By: #### C VDTBH ####[facility] [address]mawhl[address] [place] [address]Dr. Jossy Porras LACTATE/LACTIC ACIDon 2022 Lactate [Moles/Vol] 1.7 mmol/L Normal 0.4-1.9 [facility] Comment on above: Performed By: #### L ACT #### [facility] [address] [place] [address] Dr. Jossy Porras Lactate [Moles/Vol] 2.1 mmol/L Critically high 0.4-1.9 [facility] Comment on above: Performed By: #### C BC #### [facility] [address] [place] [address] Dr. Jossy Porras PROF 14(COMP METB)on 023 Albumin [Mass/Vol] 3.4 g/dL Normal 3.4-5.0 [facility] Comment on above: Performed By: #### C MP, BNP, HSTROPN ####[facility] Teezqfkpqu[address] [place] [address]Dr. Jossy Porras Albumin/Globulin [Mass ratio] 0.9 {ratio} Normal [facility] Comment on above: Performed By: #### C MP, BNP, HSTROPN ####[facility] Nyobaivazj54[address] [place] [address]Dr. Jossy Porras ALP [Catalytic activity/Vol] 91 U/L Normal 46-116 [facility] Comment on above: Performed By: #### C MP, BNP, HSTROPN ####[facility] Ndoimewgbv[address] [place] [address]Dr. Jossy Porras ALT [Catalytic activity/Vol] 52 U/L Normal 16-63 [facility] Comment on above: Performed By: #### C MP, BNP, HSTROPN ####[facility] [address] [place], [place] [address]Dr. Jossy Porras Anion gap [Moles/Vol] 10.0 mmol/L Normal [facility] Comment on above: Performed By: #### C MP, BNP, HSTROPN ####[facility] [address] [place], [place] [address]Dr. oJssy Porras AST [Catalytic activity/Vol] 30 U/L Normal 15-37 [facility] Comment on above: Performed By: #### C MP, BNP, HSTROPN ####[facility] Xxury[address] [place], [place] [address]Dr. Jossy Porras Bilirubin [Mass/Vol] 0.4 mg/dL Normal 0.2-1.0 [facility] Comment on above: Performed By: #### C MP, BNP, HSTROPN ####[facility] S[address]ks[address] [place], [place] [address]Dr. Jossy Porras Calcium [Mass/Vol] 8.8 mg/dL Normal 8.5-10.1 [facility] Comment on above: Performed By: #### C MP, BNP, HSTROPN ####[facility] Irdzlqedeg[address] [place] [address]Dr. Jossy Porras Chloride [Moles/Vol] 102 mmol/L Normal 98-107 [facility] Comment on above: Performed By: #### C MP, BNP, HSTROPN ####[facility] Bphiiuptsg[address] [place] [address]Dr. Jossy Porras CO2 [Moles/Vol] 35.7 mmol/L Critically high 21.0-32.0 [facility] Comment on above: Performed By: #### C MP, BNP, HSTROPN ####[facility] [address] [place], [place] [address]Dr. Jossy Porras Creatinine [Mass/Vol] 1.06 mg/dL Normal 0.70-1.30 [facility] Comment on above: Performed By: #### C MP, BNP, HSTROPN ####[facility] [address] [place], [place] [address]Dr. Jossy Porras EGFR-AF BAHAMIAN >60 Normal >=60 [facility] Comment on above: Performed By: #### C MP, BNP, HSTROPN ####[facility] Z[address]st[address] [place], [place] [address]Dr. Jossy Porras EGFR-NON AF BAHAMIAN >60 Normal >=60 [facility] Comment on above: Performed By: #### C MP, BNP, HSTROPN ####[facility] Cntt[address]awtg[address] [place], [place] [address]Dr. Jossy Porras Globulin (S) [Mass/Vol] 3.8 g/dL Normal [facility] Comment on above: Performed By: #### C MP, BNP, HSTROPN ####[facility] Uuhmse[address]fe[address] [place] [address]Dr. Jossy Porras Glucose [Mass/Vol] 107 mg/dL Critically high 74-106 [facility] Comment on above: Performed By: #### C MP, BNP, HSTROPN ####[facility] [address]wr[address] [place], [place] [address]Dr. Jossy Porras Potassium [Moles/Vol] 3.7 mmol/L Normal 3.5-5.1 [facility] Comment on above: Performed By: #### C MP, BNP, HSTROPN ####[facility] F[address]wbjgqtpt[address] [place] [address]Dr. Jossy Porras Protein [Mass/Vol] 7.2 g/dL Normal 6.4-8.2 [facility] Comment on above: Performed By: #### C MP, BNP, HSTROPN ####[facility] [address] [place], [place] [address]Dr. Jossy Porras Sodium [Moles/Vol] 144 mmol/L Normal 136-145 [facility] Comment on above: Performed By: #### C MP, BNP, HSTROPN ####[facility] [address]saes[address] [place], [place] [address]Dr. Jossy Porras Urea nitrogen [Mass/Vol] 12.0 mg/dL Normal 7.0-18.0 [facility] Comment on above: Performed By: #### C MP, BNP, HSTROPN ####[facility] [address] [place], [place] [address]Dr. Jossy Porras Urea nitrogen/Creatinine [Mass ratio] 11.3 mg/mg Normal [facility] Comment on above: Performed By: #### C MP, BNP, HSTROPN ####[facility] [address] [place], [place] [address]Dr. Jossy Porras PROTIMEon 06-07-2022 INR Coag (PPP) [Relative time] 1.02 {INR} Normal [facility] Comment on above: Performed By: #### P T ####[facility] [address] [place], [place] [address]Dr. Jossy Porras INR GUIDELINES SEE BELOW Normal [facility] Comment on above: Result Comment: DARLEEN RED INR: 2.0 - 3.0 CONDITIONS NOT LISTED BELOW 2.5 - 3.5 FOR PROSTHETIC HEART VALVE REPLACEMENT 2.5 - 3.5 RECURRENT THROMBOSIS Performed By: #### P T ####[facility] [address] [place], [place] [address]Dr. Jossy Porras PT Coag (PPP) [Time] 10.8 s Normal 9.0-11.6 [facility] Comment on above: Performed By: #### P T ####[facility] [address] [place] [address]Dr. Jossy Porras TROPONIN, HIGH SENSITIVITYon 06-07-2022 HSTROP 22.5 pg/mL Normal 4.0-76.1 [facility] Comment on above: Result Comment: CUT- OFF POINTS HAVE BEEN ESTABLISHED BASED ON THE FOURTH UNIVERSAL DEFINITIONS OF MYOCARDIAL INFARCTION. THE UPPER REFERENCE LIMIT (URL) OF TROPONIN, DEFINED THE 99TH PERCENTILE OF cTnI DISTRIBUTION IN A REFERENCE POPULATION, HAS BEEN CONFIRMED THE DECISION THRESHOLD FOR MT DIAGNOSIS. Performed By: #### C MP, BNP, HSTROPN ####[facility] [address] [place] [id number]. Jossy Porras XR CHEST 1 Von 06-07-2022 [...] JEANNIE GUERRERO Date: 2022-06-07 19:09 Normal [facility] BNPon 05-13-2022 Natriuretic peptide B (Bld) [Mass/Vol] 92.0 pg/mL Normal <=900.0 [facility] Comment on above: Performed By: #### C VDTB #### [facility] [address] [place] [address] Dr. Jossy Porras CARDIAC SRIDHAR ADMITon 023 CK [Catalytic activity/Vol] 55 U/L Normal 39-308 [facility] Comment on above: Performed By: #### C VDTBH #### [facility] [address] [place] [address] [address] Jossy Porras CK.MB [Mass/Vol] 1.07 ng/mL Normal <=3.60 [facility] Comment on above: Performed By: #### C VDTBH #### [facility] [address] [place] [address] Dr. Jossy Porras HSTROP 20.2 pg/mL Normal 4.0-76.1 [facility] Comment on above: Result Comment: CUT- OFF POINTS HAVE BEEN ESTABLISHED BASED ON THE FOURTH UNIVERSAL DEFINITIONS OF MYOCARDIAL INFARCTION. THE UPPER REFERENCE LIMIT (URL) OF TROPONIN, DEFINED THE 99TH PERCENTILE OF cTnI DISTRIBUTION IN A REFERENCE POPULATION, HAS BEEN CONFIRMED THE DECISION THRESHOLD FOR MT DIAGNOSIS. Performed By: #### C VDTBH #### [facility] [address] [place] [address] Dr. Jossy Porras CLEMENT 57 ng/mL Normal 16-96 [facility] Comment on above: Performed By: #### C VDTBH #### [facility] [address] [place] [address] Dr. Jossy Porras CBC AUTO DIFFon 05-13-2022 BASO # 0.1 103/ul Normal 0.0-0.1 [facility] Comment on above: Performed By: #### C VDTBH #### [facility] [address] [place] [address] Dr. Jossy Porras Basophils/100 WBC (Bld) 0.7 % Normal 0.2-2.0 [facility] Comment on above: Performed By: #### C VDTBH #### [facility] [address] [place] [address] Dr. Jossy Porras EO # 0.1 103/ul Normal 0.0-0.7 [facility] Comment on above: Performed By: #### C VDTBH #### [facility] [address] [place] [address] Dr. Jossy Porras Eosinophils/100 WBC (Bld) 1.6 % Normal 0.9-7.0 [facility] Comment on above: Performed By: #### C VDTBH #### [facility] [address] [place] [address] Dr. Jossy Porras Erythrocyte distribution width (RBC) [Ratio] 13.1 % Normal 11.0-15.0 [facility] Comment on above: Performed By: #### C VDTBH #### [facility] [address] [place] [address] [address] Jossy Porras Hematocrit (Bld) [Volume fraction] 52.8 % Normal 42.0-54.0 [facility] Comment on above: Performed By: #### C VDTBH #### [facility] [address] [place] [address] Dr. Jossy Porras Hemoglobin (Bld) [Mass/Vol] 16.5 g/dL Normal 14.0-18.0 [facility] Comment on above: Performed By: #### C VDTBH #### [facility] [address] [place] [address] Dr. Jossy Porras IG # 0.02 10e3/ul Normal 0.00-0.03 [facility] Comment on above: Performed By: #### C VDTBH #### [facility] [address] [place] [address] Dr. Jossy Porras IG % 0.3 % Normal 0.0-0.5 [facility] Comment on above: Performed By: #### C VDTBH #### [facility] [address] [place] [address] Dr. Jossy Porras LYMPH # 2.2 103/ul Normal 1.2-3.8 [facility] Comment on above: Performed By: #### C VDTBH #### [facility] [address] [place] [address] Dr. Jossy Porras Lymphocytes/100 WBC (Bld) 32.3 % Normal 20.5-60.0 [facility] Comment on above: Performed By: #### C VDTBH #### [facility] [address] [place] [address] Dr. Jossy Porras MANUAL DIFF REQ NO Normal [facility] Comment on above: Performed By: #### C VDTBH #### [facility] [address] [place] [address] Dr. Jossy Porras MCH (RBC) [Entitic mass] 30.8 pg Normal 25.9-34.0 [facility] Comment on above: Performed By: #### C VDTBH #### [facility] [address] [place] [address] Dr. Jossy Porras MCHC (RBC) [Mass/Vol] 31.3 g/dL Normal 29.9-35.2 [facility] Comment on above: Performed By: #### C VDTBH #### [facility] [address] [place] [address] Dr. Jossy Porras MCV (RBC) [Entitic vol] 98.5 fL Critically high 80.0-94.0 [facility] Comment on above: Performed By: #### C VDTBH #### [facility] [address] [place] [address] Dr. Jossy Porras MONO # 0.4 103/ul Normal 0.3-0.8 [facility] Comment on above: Performed By: #### C VDTBH #### [facility] [address] [place] [address] Dr. Jossy Porras Monocytes/100 WBC (Bld) 6.4 % Normal 1.7-12.0 [facility] Comment on above: Performed By: #### C VDTBH #### [facility] [address] [place] [address] Dr. Jossy Porras NEUT # 4.1 103/ul Normal 1.4-6.5 [facility] Comment on above: Performed By: #### C VDTBH #### [facility] [address] [place] [address] Dr. Jossy Porras Neutrophils/100 WBC (Bld) 58.7 % Normal 43.0-75.0 [facility] Comment on above: Performed By: #### C VDTBH #### [facility] [address] [place] [address] Dr. Jossy Porras Platelet mean volume (Bld) [Entitic vol] 12.1 fL Normal 9.5-13.5 [facility] Comment on above: Performed By: #### C VDTBH #### [facility] [address] [place] [address] Dr. Jossy Porras PLT 180 103/ul Normal 150-450 [facility] Comment on above: Performed By: #### C VDTBH #### [facility] [address] [place] [address] Dr. Jossy Porras RBC 5.36 106/ul Normal 4.70-6.10 [facility] Comment on above: Performed By: #### C VDTBH #### [facility] [address] [place] [address] Dr. Jossy Porras WBC 6.9 103/ul Normal 4.0-11.0 [facility] Comment on above: Performed By: #### C VDTBH #### [facility] [address] [place] [address] Dr. Jossy Porras CULTURE BLOODon 05-13-2022 Microscopic examination of blood, culture Culture Observations: NO GROWTH AT 5 DAYS. Normal [facility] Comment on above: Performed By: #### B LDCX2 #### [facility] [address] [place] [address] Dr. Jossy Porras Performed By: #### B LDCX1 #### [facility] [address] [place] [address] Dr. Jossy Porras [facility]-03 SARS-CoV-2 (COVID-19) RNA ANGELA+probe Ql (Unsp spec) Not detected Normal NOT DETECTED [facility] Comment on above: Result Comment: When diagnostic [...] for this test is supported by the [employer] [place] of Health and Human Service's declaration that [...] used). Performed By: #### C VDTBH #### [facility] [address] [place] [address] Dr. Jossy Porras INFLUENZA A AND B AGon 05-13 [facility] SEE BELOW Normal [facility] Comment on above: Result Comment: Nega tive for Flu A protein angiten. Infection due to Flu A cannot be ruled out. Flu A angiten in the sample may be below the detection limit of the test. Performed By: #### I NFLUAB ####[facility] [address] [place], [place] [address]DrSal Porras INFLUBNEG SEE BELOW Normal [facility] Comment on above: Result Comment: Nega tive for Flu B protein antigen. Infection due to Flu B cannot be ruled out. Flu B antigen in the sample may be below the detection limit of the test. Performed By: #### I NFLUAB ####[facility] [address] [place], [place] [address]DrSal Porras INFLUENZA A AG Negative Normal NEGATIVE SEE COMMENT [facility] Comment on above: Performed By: #### I NFLUAB ####[facility] [address] [place], [place] [address]Dr. Jossy Porras INFLUENZA B AG Negative Normal NEGATIVE SEE COMMENT [facility] Comment on above: Performed By: #### I NFLUAB ####[facility] [address] [place], [place] [address]Dr. Jossy Porras LACTATE/LACTIC ACIDon 2022 Lactate [Moles/Vol] 1.4 mmol/L Normal 0.4-1.9 [facility] Comment on above: Performed By: #### C VDTBH #### [facility] [address] [place] [address] Dr. Jossy Porras PROF 14(COMP METB)on 023 Albumin [Mass/Vol] 3.6 g/dL Normal 3.4-5.0 [facility] Comment on above: Performed By: #### C VDTBH #### [facility] [address] [place] [address] Dr. Jossy Porras Albumin/Globulin [Mass ratio] 1.0 {ratio} Normal [facility] Comment on above: Performed By: #### C VDTBH #### [facility] [address] [place] [address] Dr. Jossy Porras ALP [Catalytic activity/Vol] 97 U/L Normal 46-116 [facility] Comment on above: Performed By: #### C VDTBH #### [facility] [address] [place] [address] Dr. Jossy Porras ALT [Catalytic activity/Vol] 32 U/L Normal 16-63 [facility] Comment on above: Performed By: #### C VDTBH #### [facility] [address] [place] [address] Dr. Jossy Porras Anion gap [Moles/Vol] 7.0 mmol/L Normal [facility] Comment on above: Performed By: #### C VDTBH #### [facility] [address] [place] [address] Dr. Jossy Porras AST [Catalytic activity/Vol] 28 U/L Normal 15-37 [facility] Comment on above: Performed By: #### C VDTBH #### [facility] [address] [place] [address] Dr. Jossy Porras Bilirubin [Mass/Vol] 0.4 mg/dL Normal 0.2-1.0 [facility] Comment on above: Performed By: #### C VDTBH #### [facility] [address] [place] [address] Dr. Jossy Porras Calcium [Mass/Vol] 9.0 mg/dL Normal 8.5-10.1 [facility] Comment on above: Performed By: #### C VDTBH #### [facility] [address] [place] [address] Dr. Jossy Porras Chloride [Moles/Vol] 102 mmol/L Normal 98-107 [facility] Comment on above: Performed By: #### C VDTBH #### [facility] [address] [place] [address] Dr. Jossy Porras CO2 [Moles/Vol] 34.3 mmol/L Critically high 21.0-32.0 [facility] Comment on above: Performed By: #### C VDTBH #### [facility] [address] [place] [address] Dr. Jossy Porras Creatinine [Mass/Vol] 0.91 mg/dL Normal 0.70-1.30 [facility] Comment on above: Performed By: #### C VDTBH #### [facility] [address] [place] [address] Dr. Jossy Porras EGFR-AF BAHAMIAN >60 Normal >=60 [facility] Comment on above: Performed By: #### C VDTBH #### [facility] [address] [place] [address] Dr. Jossy Porras EGFR-NON AF BAHAMIAN >60 Normal >=60 [facility] Comment on above: Performed By: #### C VDTBH #### [facility] [address] [place] [address] Dr. Jossy Porras Globulin (S) [Mass/Vol] 3.6 g/dL Normal [facility] Comment on above: Performed By: #### C VDTBH #### [facility] [address] [place] [address] Dr. Jossy Porras Glucose [Mass/Vol] 123 mg/dL Critically high 74-106 [facility] Comment on above: Performed By: #### C VDTBH #### [facility] [address] [place] [address] Dr. Jossy Porras Potassium [Moles/Vol] 4.3 mmol/L Normal 3.5-5.1 [facility] Comment on above: Performed By: #### C VDTBH #### [facility] [address] [place] [address] Dr. Jossy Porras Protein [Mass/Vol] 7.2 g/dL Normal 6.4-8.2 [facility] Comment on above: Performed By: #### C VDTBH #### [facility] [address] [place] [address] Dr. Jossy Porras Sodium [Moles/Vol] 139 mmol/L Normal 136-145 [facility] Comment on above: Performed By: #### C VDTBH #### [facility] [facility] [address] [place] [address] Dr. Jossy Porras Urea nitrogen [Mass/Vol] 11.0 mg/dL Normal 7.0-18.0 [facility] Comment on above: Performed By: #### C VDTBH #### [facility] [address] [place] [address] Dr. Jossy Porras Urea nitrogen/Creatinine [Mass ratio] 12.1 mg/mg Normal [facility] Comment on above: Performed By: #### C VDTBH #### [facility] [address] [place] [address] Dr. Jossy Porras PROTIMEon 05-13-2022 INR Coag (PPP) [Relative time] 1.01 {INR} Normal [facility] Comment on above: Performed By: #### C BC #### [facility] [address] [place] [address] Dr. Jossy Porras INR GUIDELINES SEE BELOW Normal [facility] Comment on above: Result Comment: DARLEEN RED INR: 2.0 - 3.0 CONDITIONS NOT LISTED BELOW 2.5 - 3.5 FOR PROSTHETIC HEART VALVE REPLACEMENT 2.5 - 3.5 RECURRENT THROMBOSIS Performed By: #### C BC #### [facility] [address] [place] [address] Dr. Jossy Porras PT Coag (PPP) [Time] 10.7 s Normal 9.0-11.6 [facility] Comment on above: Performed By: #### C BC #### [facility] [address] [place] [address] Dr. Jossy Porras PTTon 05-13-2022 aPTT Coag (Bld) [Time] 25.9 s Normal 22.3-36.2 [facility] Comment on above: Performed By: #### C BC #### [facility] [address] [place] [address] Dr. Jossy Porras XR CHEST 1 Von [...] NIELS BERNAL Date: 2022-05-13 17:04 Normal [facility] HEMOGLOBINon 02-16-2022 Hemoglobin (Bld) [Mass/Vol] 16.9 g/dL Normal 14.0-18.0 [facility] Comment on above: Performed By: #### C BC #### [facility] [address] [place] [address] Dr. Jossy Porras BNPon 12-13-2021 Natriuretic peptide B (Bld) [Mass/Vol] 166.0 pg/mL Normal <=900.0 [facility] Comment on above: Performed By: #### C BC #### [facility] [address] [place] [address] Dr. Jossy Porras CARDIAC SRIDHAR ADMITon 022 CK [Catalytic activity/Vol] 30 U/L Critically low 39-308 [facility] Comment on above: Performed By: #### C BC #### [facility] [address] [place] [address] Dr. Jossy Porras CK.MB [Mass/Vol] 1.20 ng/mL Normal <=3.60 [facility] Comment on above: Performed By: #### C BC #### [facility] [address] [place] [address] Dr. Jossy Porras HSTROP 27.9 pg/mL Normal 4.0-76.1 [facility] Comment on above: Result Comment: CUT- OFF POINTS HAVE BEEN ESTABLISHED BASED ON THE FOURTH UNIVERSAL DEFINITIONS OF MYOCARDIAL INFARCTION. THE UPPER REFERENCE LIMIT (URL) OF TROPONIN, DEFINED THE 99TH PERCENTILE OF cTnI DISTRIBUTION IN A REFERENCE POPULATION, HAS BEEN CONFIRMED THE DECISION THRESHOLD FOR MT DIAGNOSIS. Performed By: #### C BC #### [facility] [address] [address] [address] Jossy Porras CLEMENT 44 ng/mL Normal 16-96 [facility] Comment on above: Performed By: #### C BC #### [facility] [address] [address] [address] Jossy Porras CBC AUTO DIFFon 12-13-2021 BASO # 0.0 103/ul Normal 0.0-0.1 [facility] Comment on above: Performed By: #### C BC ####[facility] [address] [address]DrSal Porras Basophils/100 WBC (Bld) 0.3 % Normal 0.2-2.0 [facility] Comment on above: Performed By: #### C BC ####[facility] [address] [address]DrSal Porras EO # 0.2 103/ul Normal 0.0-0.7 [facility] Comment on above: Performed By: #### C BC ####[facility] [address] [address]DrSal Porras Eosinophils/100 WBC (Bld) 1.3 % Normal 0.9-7.0 [facility] Comment on above: Performed By: #### C BC ####[facility] [address] [address]DrSal Porras Erythrocyte distribution width (RBC) [Ratio] 14.1 % Normal 11.0-15.0 [facility] Comment on above: Performed By: #### C BC ####[facility] [address] [address]DrSal Porras Hematocrit (Bld) [Volume fraction] 50.9 % Normal 42.0-54.0 [facility] Comment on above: Performed By: #### C BC ####[facility] [address] [address]Dr. Jossy Porras Hemoglobin (Bld) [Mass/Vol] 16.4 g/dL Normal 14.0-18.0 [facility] Comment on above: Performed By: #### C BC ####[facility] [address] [id number]. Jossy Porras IG # 0.08 10e3/ul Critically high 0.00-0.03 [facility] Comment on above: Performed By: #### C BC ####[facility] [address] [address]Dr. Jossy Vern IG % 0.7 % Critically high 0.0-0.5 [facility] Comment on above: Performed By: #### C BC ####[facility] [address] [address]Dr. Amiemyron Vern LYMPH # 3.2 103/ul Normal 1.2-3.8 [facility] Comment on above: Performed By: #### C BC ####[facility] [address] [address]Dr. Jossy Porras Lymphocytes/100 WBC (Bld) 27.6 % Normal 20.5-60.0 [facility] Comment on above: Performed By: #### C BC ####[facility] [address] [address]Dr. Amiemyron Porras MANUAL DIFF REQ NO Normal [facility] Comment on above: Performed By: #### C BC ####[facility] [address] [address]Dr. Jossy Vern MCH (RBC) [Entitic mass] 31.1 pg Normal 25.9-34.0 [facility] Comment on above: Performed By: #### C BC ####[facility] [address] [address]Dr. Jossy Vern MCHC (RBC) [Mass/Vol] 32.2 g/dL Normal 29.9-35.2 [facility] Comment on above: Performed By: #### C BC ####[facility] [address] [address]Dr. Jossy Vern MCV (RBC) [Entitic vol] 96.6 fL Critically high 80.0-94.0 [facility] Comment on above: Performed By: #### C BC ####[facility] [address] [id number]. Jossy Porras MONO # 0.8 103/ul Normal 0.3-0.8 [facility] Comment on above: Performed By: #### C BC ####[facility] [address] [address]Dr. Jossy Porras Monocytes/100 WBC (Bld) 6.7 % Normal 1.7-12.0 [facility] Comment on above: Performed By: #### C BC ####[facility] [address] [address]Dr. Jossy Porras NEUT # 7.3 103/ul Critically high 1.4-6.5 [facility] Comment on above: Performed By: #### C BC ####[facility] [address] [address]Dr. Jossy Porras Neutrophils/100 WBC (Bld) 63.4 % Normal 43.0-75.0 [facility] Comment on above: Performed By: #### C BC ####[facility] [address] [id number]. Jossy Porras Platelet mean volume (Bld) [Entitic vol] 11.2 fL Normal 9.5-13.5 [facility] Comment on above: Performed By: #### C BC ####[facility] [address] [id number]. Jossy Porras PLT 213 103/ul Normal 150-450 [facility] Comment on above: Performed By: #### C BC ####[facility] [address]xqude[address] [id number]. Jossy Porras RBC 5.27 106/ul Normal 4.70-6.10 [facility] Comment on above: Performed By: #### C BC ####[facility] [address] [phone]. Jossy Porras WBC 11.6 103/ul Critically high 4.0-11.0 [facility] Comment on above: Performed By: #### C BC ####[facility] [address] [id number]. Jossy Porras CTA CHEST WO W CONon 12-13-2 022 CTA CHEST WO W CON CTA CHEST WITH IV CONTRAST CTA CHEST WO W CON, DATE: 12/13/2021 3:14 PM EDT HISTORY: SHORTNESS [...] The subdiaphragmatic abdominal organs included in the [id number] do not demonstrate any acute abnormality. IMPRESSION: [...] nodules can be found at: http://pubs.rsna.org /doi/abs/10.1148/rad iol.4081933227 ------- Sunny Citation: Information used in this report was referenced from the following. Guidelines for Management of Incidental Pulmonary Nodules Detected on CT Images: From the Fleischner Society 2017 Radiology. 2017 Rub[place];284(1):228-243. doi: 10.1148/radiol.61049 13926. Epub 2016Jun 25. Electronically authenticated by: CARLA SANTOS Date: 2021-12-13 16:37 Normal [facility] Covid-19 PCR (CVDTBH)on 12-01 SARS-CoV-2 (COVID-19) RNA ANGELA+probe Ql (Unsp spec) Not detected Normal NOT DETECTED [facility] Comment on above: Result Comment: When [...] for this test is supported by the [place] of Health and Human Service's declaration that [...] used). Performed By: #### C BC #### [facility] [address] [address] [address] Jossy Porras D-DIMERon 12-13-2021 D-DIMER 1.68 mg/L FEU Critically high <=0.59 [facility] Comment on above: Performed By: #### D DIM ####[facility] [address] [address]Dr. Jossy Porras D-DIMER COMMENTS SEE BELOW Normal [facility] Comment on above: Result Comment: Incr [...] generalized hospitalization. Performed By: #### D DIM ####[facility] [address] [address]Dr. Jossy Porras PROF 14(COMP METB)on 022 Albumin [Mass/Vol] 3.4 g/dL Normal 3.4-5.0 [facility] Comment on above: Performed By: #### C VDTBH #### [facility] [address] [address] [address] Jossy Porras Albumin/Globulin [Mass ratio] 0.7 {ratio} Normal [facility] Comment on above: Performed By: #### C VDTBH #### [facility] [address] [address] [address] Jossy Porras ALP [Catalytic activity/Vol] 132 U/L Critically high 46-116 [facility] Comment on above: Performed By: #### C VDTBH #### [facility] [address] [address] [address] Jossy Porras ALT [Catalytic activity/Vol] 65 U/L Critically high 16-63 [facility] Comment on above: Performed By: #### C VDTBH #### [facility] [address] [address] [address] Jossy Porras Anion gap [Moles/Vol] 10.8 mmol/L Normal [facility] Comment on above: Performed By: #### C VDTBH #### [facility] [address] [address] [address] Jossy Porras AST [Catalytic activity/Vol] 26 U/L Normal 15-37 [facility] Comment on above: Performed By: #### C VDTBH #### [facility] [address] [address] [address] Jossy Porras Bilirubin [Mass/Vol] 0.6 mg/dL Normal 0.2-1.0 [facility] Comment on above: Performed By: #### C VDTBH #### [facility] [address] [address] [address] Jossy Porras Calcium [Mass/Vol] 8.7 mg/dL Normal 8.5-10.1 [facility] Comment on above: Performed By: #### C VDTBH #### [facility] [address] [address] [address] Jossy Porras Chloride [Moles/Vol] 101 mmol/L Normal 98-107 [facility] Comment on above: Performed By: #### C VDTBH #### [facility] [address] [address] [address] Jossy Porras CO2 [Moles/Vol] 28.9 mmol/L Normal 21.0-32.0 [facility] Comment on above: Performed By: #### C VDTBH #### [facility] [address] [address] [address] Jossy Porras Creatinine [Mass/Vol] 0.86 mg/dL Normal 0.70-1.30 [facility] Comment on above: Performed By: #### C VDTBH #### [facility] [address] [address] [address] Jossy Porras EGFR-AF BAHAMIAN >60 Normal >=60 [facility] Comment on above: Performed By: #### C VDTBH #### [facility] [address] [address] [address] Jossy Porras EGFR-NON AF BAHAMIAN >60 Normal >=60 [facility] Comment on above: Performed By: #### C VDTBH #### [facility] [address] [address] [address] Jossy Porras Globulin (S) [Mass/Vol] 4.6 g/dL Normal [facility] Comment on above: Performed By: #### C VDTBH #### [facility] [address] [place] [address] Dr. Jossy Porras Glucose [Mass/Vol] 117 mg/dL Critically high 74-106 [facility] Comment on above: Performed By: #### C VDTBH #### [facility] [address] [address] [address] Jossy Porras Potassium [Moles/Vol] 4.7 mmol/L Normal 3.5-5.1 [facility] Comment on above: Performed By: #### C VDTBH #### [facility] [address] [place] [address] Dr. Jossy Porras Protein [Mass/Vol] 8.0 g/dL Normal 6.4-8.2 [facility] Comment on above: Performed By: #### C VDTBH #### [facility] [address] [address] [address] Jossy Porras Sodium [Moles/Vol] 136 mmol/L Normal 136-145 [facility] Comment on above: Performed By: #### C VDTBH #### [facility] [address] [address] [address] Jossy Porras Urea nitrogen [Mass/Vol] 14.0 mg/dL Normal 7.0-18.0 [facility] Comment on above: Performed By: #### C VDTBH #### [facility] [address] [address] [address] Jossy Porras Urea nitrogen/Creatinine [Mass ratio] 16.3 mg/mg Normal [facility] Comment on above: Performed By: #### C VDTBH #### [facility] [address] [address] [address] Jossy Porras XR CHEST 1 Von [...] JEFRY SMITH Date: 2021-12-13 15:28 Normal [facility] CBC AUTO DIFFon 11-25-2021 BASO # 0.0 103/ul Normal 0.0-0.1 [facility] Comment on above: Performed By: #### C BC ####[facility] [address] [address]Dr. Jossy Porras Basophils/100 WBC (Bld) 0.3 % Normal 0.2-2.0 [facility] Comment on above: Performed By: #### C BC ####[facility] [address] [address]DrSal Porras EO # 0.0 103/ul Normal 0.0-0.7 [facility] Comment on above: Performed By: #### C BC ####[facility] [address] [address]DrSal Porras Eosinophils/100 WBC (Bld) 0.0 % Critically low 0.9-7.0 [facility] Comment on above: Performed By: #### C BC ####[facility] [address] [address]DrSal Porras Erythrocyte distribution width (RBC) [Ratio] 13.2 % Normal 11.0-15.0 [facility] Comment on above: Performed By: #### C BC ####[facility] [address] [address]Dr. Jossy Porras Hematocrit (Bld) [Volume fraction] 47.0 % Normal 42.0-54.0 [facility] Comment on above: Performed By: #### C BC ####[facility] [address] [address]Dr. Jossy Porras Hemoglobin (Bld) [Mass/Vol] 16.0 g/dL Normal 14.0-18.0 [facility] Comment on above: Performed By: #### C BC ####[facility] [address] [place], [place] [address]Dr. Jossy Porras IG # 0.01 10e3/ul Normal 0.00-0.03 [facility] Comment on above: Performed By: #### C BC ####[facility] [address] [place], [place] [address]Dr. Jossy Porras IG % 0.3 % Normal 0.0-0.5 [facility] Comment on above: Performed By: #### C BC ####[facility] [address] [place], [place] [address]Dr. Jossy Porras LYMPH # 0.7 103/ul Critically low 1.2-3.8 [facility] Comment on above: Performed By: #### C BC ####[facility] [address] [place], [place] [address]Dr. Jossy Porras Lymphocytes/100 WBC (Bld) 22.2 % Normal 20.5-60.0 [facility] Comment on above: Performed By: #### C BC ####[facility] [address] [place], [place] [address]Dr. Jossy Porras MANUAL DIFF REQ NO Normal [facility] Comment on above: Performed By: #### C BC ####[facility] [address]qz[address] [place], [place] [address]Dr. Jossy Porras MCH (RBC) [Entitic mass] 31.4 pg Normal 25.9-34.0 [facility] Comment on above: Performed By: #### C BC ####[facility] [address] [phone]. Jossy Porras MCHC (RBC) [Mass/Vol] 34.0 g/dL Normal 29.9-35.2 [facility] Comment on above: Performed By: #### C BC ####[facility] [address] [phone]. Jossy Porras MCV (RBC) [Entitic vol] 92.3 fL Normal 80.0-94.0 [facility] Comment on above: Performed By: #### C BC ####[facility] [address] [place], [place] [id number]. Jossy Vern MONO # 0.1 103/ul Critically low 0.3-0.8 [facility] Comment on above: Performed By: #### C BC ####[facility] [address] [place], [place] [address]Dr. Jossy Porras Monocytes/100 WBC (Bld) 2.5 % Normal 1.7-12.0 [facility] Comment on above: Performed By: #### C BC ####[facility] [address] [place], [place] [address]Dr. Jossy Porras NEUT # 2.4 103/ul Normal 1.4-6.5 [facility] Comment on above: Performed By: #### C BC ####[facility] X[address]qs[address] [place], [place] [address]Dr. Jossy Porras Neutrophils/100 WBC (Bld) 74.7 % Normal 43.0-75.0 [facility] Comment on above: Performed By: #### C BC ####[facility] [address] [place], [place] [address]Dr. Jossy Porras Platelet mean volume (Bld) [Entitic vol] 12.4 fL Normal 9.5-13.5 [facility] Comment on above: Performed By: #### C BC ####[facility] [address] [place], [place] [address]Dr. Jossy Porras PLT 95 103/ul Critically low 150-450 [facility] Comment on above: Performed By: #### C BC ####[facility] [address] [place], [place] [address]Am. Jossy Porras RBC 5.09 106/ul Normal 4.70-6.10 [facility] Comment on above: Performed By: #### C BC ####[facility] [address] [place], [place] [address]Yp. Jossy Porras WBC 3.2 103/ul Critically low 4.0-11.0 [facility] Comment on above: Performed By: #### C BC ####[facility] [address] [place], [place] [address]Dg. Jossy Porras CRPon 11-25-2021 CRP 3.5 mg/dL Critically high <=1.0 [facility] Comment on above: Performed By: #### C VDTBH #### [facility] [address] [place], [place] [address] Dr. Jossy Porras PROF 14(COMP METB)on 022 Albumin [Mass/Vol] 3.2 g/dL Critically low 3.4-5.0 [facility] Comment on above: Performed By: #### C MP, CRP ####[facility] [address] [phone]. Jossy Porras Albumin/Globulin [Mass ratio] 0.8 {ratio} Normal [facility] Comment on above: Performed By: #### C MP, CRP ####[facility] [address] [phone]. Jossy Porras ALP [Catalytic activity/Vol] 99 U/L Normal 46-116 [facility] Comment on above: Performed By: #### C MP, CRP ####[facility] [address]fs[address] [phone]. Jossy Porras ALT [Catalytic activity/Vol] 47 U/L Normal 16-63 [facility] Comment on above: Performed By: #### C MP, CRP ####[facility] [address]owjlsp[address] [id number]. oJssy Proras Anion gap [Moles/Vol] 9.1 mmol/L Normal [facility] Comment on above: Performed By: #### C MP, CRP ####[facility] [address] [address]Dr. Jossy Porras AST [Catalytic activity/Vol] 34 U/L Normal 15-37 [facility] Comment on above: Performed By: #### C MP, CRP ####[facility] [address] [address]Dr. Jossy Porras Bilirubin [Mass/Vol] 0.8 mg/dL Normal 0.2-1.0 [facility] Comment on above: Performed By: #### C MP, CRP ####[facility] [address] [place], [place] [address]Dr. Jossy Porras Calcium [Mass/Vol] 8.5 mg/dL Normal 8.5-10.1 [facility] Comment on above: Performed By: #### C MP, CRP ####[facility] [address]on[address]sca[address] [place], [place] [address]Dr. Jossy Porras Chloride [Moles/Vol] 101 mmol/L Normal 98-107 [facility] Comment on above: Performed By: #### C MP, CRP ####[facility] [address]wfr[address]wsycl[address] [place], [place] [address]Dr. Jossy Porras CO2 [Moles/Vol] 30.5 mmol/L Normal 21.0-32.0 [facility] Comment on above: Performed By: #### C MP, CRP ####[facility] [address]wz[address] [place], [place] [address]Dr. Jossy Porras Creatinine [Mass/Vol] 0.96 mg/dL Normal 0.70-1.30 [facility] Comment on above: Performed By: #### C MP, CRP ####[facility] [address]njmmx[address] [place], [place] [address]Dr. Jossy Porras EGFR-AF BAHAMIAN >60 Normal >=60 [facility] Comment on above: Performed By: #### C MP, CRP ####[facility] [address]tr[address] [place], [place] [address]Dr. Jossy Porras EGFR-NON AF BAHAMIAN >60 Normal >=60 [facility] Comment on above: Performed By: #### C MP, CRP ####[facility] [address] [address]Dr. Jossy Porras Globulin (S) [Mass/Vol] 4.2 g/dL Normal [facility] Comment on above: Performed By: #### C MP, CRP ####[facility] [address] [address]Dr. Jossy Porras Glucose [Mass/Vol] 165 mg/dL Critically high 74-106 [facility] Comment on above: Performed By: #### C MP, CRP ####[facility] [address]ot[address] [place], [place] [address]Dr. Jossy Porras Potassium [Moles/Vol] 4.6 mmol/L Normal 3.5-5.1 [facility] Comment on above: Performed By: #### C MP, CRP ####[facility] [address] [place], [place] [address]Dr. Jossy Porras Protein [Mass/Vol] 7.4 g/dL Normal 6.4-8.2 [facility] Comment on above: Performed By: #### C MP, CRP ####[facility] [address]anx[address] [place], [place] [address]Dr. Jossy Porras Sodium [Moles/Vol] 136 mmol/L Normal 136-145 [facility] Comment on above: Performed By: #### C MP, CRP ####[facility] [facility] [id number] [place], [place] [address]Dr. Jossy Porras Urea nitrogen [Mass/Vol] 15.0 mg/dL Normal 7.0-18.0 [facility] Comment on above: Performed By: #### C MP, CRP ####[facility] [address] [place], [place] [address]Dr. Jossy Porras Urea nitrogen/Creatinine [Mass ratio] 15.6 mg/mg Normal [facility] Comment on above: Performed By: #### C MP, CRP ####[facility] [address] [place], [place] [address]Dr. Jossy Porras CBC AUTO DIFFon 11-24-2021 BASO # 0.0 103/ul Normal 0.0-0.1 [facility] Comment on above: Performed By: #### C VDTB #### [facility] [address] [place] [address] Dr. Jossy Porras Basophils/100 WBC (Bld) 0.5 % Normal 0.2-2.0 [facility] Comment on above: Performed By: #### C VDTBH #### [facility] [address] [place] [address] Dr. Jossy Porras EO # 0.0 103/ul Normal 0.0-0.7 [facility] Comment on above: Performed By: #### C VDTBH #### [facility] [address] [place] [address] Dr. Jossy Porras Eosinophils/100 WBC (Bld) 0.0 % Critically low 0.9-7.0 [facility] Comment on above: Performed By: #### C VDTBH #### [facility] [address] [place] [address] Dr. Jossy Porras Erythrocyte distribution width (RBC) [Ratio] 13.3 % Normal 11.0-15.0 [facility] Comment on above: Performed By: #### C VDTBH #### [facility] [address] [place] [address] Dr. Jossy Porras Hematocrit (Bld) [Volume fraction] 48.5 % Normal 42.0-54.0 [facility] Comment on above: Performed By: #### C VDTBH #### [facility] [address] [place] [address] Dr. Jossy Porras Hemoglobin (Bld) [Mass/Vol] 16.2 g/dL Normal 14.0-18.0 [facility] Comment on above: Performed By: #### C VDTBH #### [facility] [address] [place] [address] Dr. Jossy Porras IG # 0.02 10e3/ul Normal 0.00-0.03 [facility] Comment on above: Performed By: #### C VDTBH #### [facility] [address] [place] [address] Dr. Jossy Porras IG % 0.5 % Normal 0.0-0.5 [facility] Comment on above: Performed By: #### C VDTBH #### [facility] [address] [place] [address] Dr. Jossy Porras LYMPH # 1.3 103/ul Normal 1.2-3.8 [facility] Comment on above: Performed By: #### C VDTBH #### [facility] [address] [place] [address] Dr. Jossy Porras Lymphocytes/100 WBC (Bld) 28.2 % Normal 20.5-60.0 [facility] Comment on above: Performed By: #### C VDTBH #### [facility] [address] [place] [address] Dr. Jossy Porras MANUAL DIFF REQ NO Normal [facility] Comment on above: Performed By: #### C VDTBH #### [facility] [address] [place] [address] Dr. Jsosy Porras MCH (RBC) [Entitic mass] 31.2 pg Normal 25.9-34.0 [facility] Comment on above: Performed By: #### C VDTBH #### [facility] [address] [place] [address] Dr. Jossy Porras MCHC (RBC) [Mass/Vol] 33.4 g/dL Normal 29.9-35.2 [facility] Comment on above: Performed By: #### C VDTBH #### [facility] [address] [place] [address] Dr. Jossy Porras MCV (RBC) [Entitic vol] 93.4 fL Normal 80.0-94.0 [facility] Comment on above: Performed By: #### C VDTBH #### [facility] [address] [place] [address] Dr. Jossy Porras MONO # 0.3 103/ul Normal 0.3-0.8 [facility] Comment on above: Performed By: #### C VDTBH #### [facility] [address] [place] [address] Dr. Jossy Porras Monocytes/100 WBC (Bld) 6.5 % Normal 1.7-12.0 [facility] Comment on above: Performed By: #### C VDTBH #### [facility] [address] [place] [address] Dr. Jossy Porras NEUT # 2.9 103/ul Normal 1.4-6.5 [facility] Comment on above: Performed By: #### C VDTBH #### [facility] [address] [place] [address] Dr. Jossy Porras Neutrophils/100 WBC (Bld) 64.3 % Normal 43.0-75.0 [facility] Comment on above: Performed By: #### C VDTBH #### [facility] [address] [place] [address] Dr. Jossy Porras Platelet mean volume (Bld) [Entitic vol] 12.6 fL Normal 9.5-13.5 [facility] Comment on above: Performed By: #### C VDTBH #### [facility] [address] [place] [address] Dr. Jossy Porras PLT 106 103/ul Critically low 150-450 [facility] Comment on above: Performed By: #### C VDTBH #### [facility] [address] [place] [address] Dr. Jossy Porras RBC 5.19 106/ul Normal 4.70-6.10 [facility] Comment on above: Performed By: #### C VDTBH #### [facility] [address] [place] [address] Dr. Jossy Porras WBC 4.4 103/ul Normal 4.0-11.0 [facility] Comment on above: Performed By: #### C VDTBH #### [facility] [address] [place] [address] Dr. Jossy Porras CULTURE BLOODon 11-24-2021 Microscopic examination of blood, culture Culture Observations: NO GROWTH AT 5 DAYS. Normal [facility] Comment on above: Performed By: #### B LDCX2 #### [facility] [address] [address] [address] Jossy Porras Microscopic examination of blood, culture Culture Observations: NO GROWTH AT 5 DAYS. Normal [facility] Comment on above: Performed By: #### B LDCX1 ####[facility] [address] [id number]. Jossy Porras Covid-19 PCR (CVDTB)on 11-01 SARS-CoV-2 (COVID-19) RNA ANGELA+probe Ql (Unsp spec) Detected Critically abnormal NOT DETECTED [facility] Comment on above: Result Comment: This test is not yet approved or cleared by the [place] FDA. When there are no FDA-approved or cleared tests available, and other criteria are met, FDA can make tests available under an emergency access mechanism called an Emergency Use Authorization (EUA). The EUA for this test is supported by the Chemical Engineer of Health and Human Service's declaration that [...] used). Performed By: #### C VDTBH #### [facility] [address] [address] [address] Jossy Porras LACTATE/LACTIC ACIDon 2021 Lactate [Moles/Vol] 1.5 mmol/L Normal 0.4-1.9 [facility] Comment on above: Performed By: #### L ACT ####[facility] [address] [id number]. Jossy Porras PROF 14(COMP METB)on 022 Albumin [Mass/Vol] 3.3 g/dL Critically low 3.4-5.0 [facility] Comment on above: Performed By: #### C MP, HSTROPN ####[facility] [address] [address]Dr. Jossy Porras Albumin/Globulin [Mass ratio] 0.8 {ratio} Normal [facility] Comment on above: Performed By: #### C KWABENA HSTROPN ####[facility] [address] [address]Dr. Jossy Porras ALP [Catalytic activity/Vol] 98 U/L Normal 46-116 [facility] Comment on above: Performed By: #### C KWABENA, HSTROPN ####[facility] [address] [address]Dr. Amiemyron Porras ALT [Catalytic activity/Vol] 48 U/L Normal 16-63 [facility] Comment on above: Performed By: #### C KWABENA HSTROPN ####[facility] [address] [address]Dr. Jossy Porras Anion gap [Moles/Vol] 10.1 mmol/L Normal [facility] Comment on above: Performed By: #### C KWABENA HSTROPN ####[facility] [address] [place], [place] [address]Dr. Amiemyron Porras AST [Catalytic activity/Vol] 38 U/L Critically high 15-37 [facility] Comment on above: Performed By: #### C KWABENA HSTROPN ####[facility] [address] [place], [place] [address]Dr. Jossy Porras Bilirubin [Mass/Vol] 0.7 mg/dL Normal 0.2-1.0 [facility] Comment on above: Performed By: #### C KWABENA HSTROPN ####[facility] [address] [place], [place] [address]Dr. Jossy Porras Calcium [Mass/Vol] 8.4 mg/dL Critically low 8.5-10.1 [facility] Comment on above: Performed By: #### C KWABENA HSTROPN ####[facility] [address] [place], [place] [address]Dr. Jossy Porras Chloride [Moles/Vol] 100 mmol/L Normal 98-107 [facility] Comment on above: Performed By: #### C KWABENA HSTROPN ####[facility] [address] [place], [place] [address]Dr. Jossy Porras CO2 [Moles/Vol] 31.0 mmol/L Normal 21.0-32.0 [facility] Comment on above: Performed By: #### C KWABENA, HSTROPN ####[facility] [address] [address]Dr. Jossy Porras Creatinine [Mass/Vol] 1.09 mg/dL Normal 0.70-1.30 [facility] Comment on above: Performed By: #### C KWABENA, HSTROPN ####[facility] [address] [address]Dr. Jossy Porras EGFR-AF BAHAMIAN >60 Normal >=60 [facility] Comment on above: Performed By: #### C KWABENA, HSTROPN ####[facility] [address] [address]Dr. Jossy Porras EGFR-NON AF BAHAMIAN >60 Normal >=60 [facility] Comment on above: Performed By: #### C KWABENA, HSTROPN ####[facility] [address] [address]Dr. Jossy Porras Globulin (S) [Mass/Vol] 4.1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
--- NOTE | 2023-09-15 10:46 | PM.CN ---
Consult Note: HPI Data of Consult Patient: new to practice Requesting Physician: Lopez Guerrier MD Primary Care Provider: TIBURCIO FIGUEROA Consult Narrative Reason for consult: establish chronic low back pain Narrative: Boris Mohr a 67 year old male presents for evaluation and management of chronic low back pain with worsening onset of 2 months ago, reports two months ago he was lying in bed and sat up to turn pillow and felt a shock and intense severe pain. Recent imaging reveals degenerative changes and facet arthropathy, as well as Subacute mild compression fractures (10-15% loss of height) involving superior endplates of L1 and L3 vertebral bodies; new since 04/12/2023. Patient reports pain today 4-5/10 in low back shock sharp aching without numbness tingling weakness of BLE, hx of DM2 and patient reports chronic neuropathy of bilateral feet. Patient reports pain increasing to 9/10 with standing, walking, bending, twisting, ADLs, activity, and sleep improves with lying flat. Patient finds mild benefit to tylenol q6hrs, on chronic prednisone for COPD, requires home o2. Has been engaged in PT and HEP greater than 6 weeks without improvement. cc:: CC: Lopez Guerrier MD Review of Systems ROS Status of ROS 10 or more systems reviewed and unremarkable except as noted in history and below Musculoskeletal Reports: back pain PFSH PFSH Medical History (Updated 09/15/23 @ 11:01 by Leslie Westfall NP) COPD exacerbation ?J44.1 - Chronic obstructive pulmonary disease with (acute) exacerbation (ICD-10) Shortness of breath ?R06.02 - Shortness of breath (ICD-10) Headache ?R51.9 - Headache, unspecified (ICD-10) COVID ?U07.1 - COVID-19 (ICD-10) Acute infective exacerbation of chronic obstructive airway disease ?J44.1 - Chronic obstructive pulmonary disease with (acute) exacerbation (ICD-10) Anxiety ?F41.9 - Anxiety disorder, unspecified (ICD-10) Chronic obstructive pulmonary disease (COPD) ?J44.9 - Chronic obstructive pulmonary disease, unspecified (ICD-10) Current smoker ?F17.200 - Nicotine dependence, unspecified, uncomplicated (ICD-10) Leukocytosis ?D72.829 - Elevated white blood cell count, unspecified (ICD-10) Pulmonary cachexia due to chronic obstructive pulmonary disease ?J44.9 - Chronic obstructive pulmonary disease, unspecified (ICD-10) ?R64 - Cachexia (ICD-10) COVID-19 ?U07.1 - COVID-19 (ICD-10) Chronic respiratory failure with hypoxia ?J96.11 - Chronic respiratory failure with hypoxia (ICD-10) COPD (chronic obstructive pulmonary disease) ?J44.9 - Chronic obstructive pulmonary disease, unspecified (ICD-10) 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) COPD with acute exacerbation ?J44.1 - Chronic obstructive pulmonary disease with (acute) exacerbation (ICD-10) Asthma exacerbation with COPD (chronic obstructive pulmonary disease) ?J44.1 - Chronic obstructive pulmonary disease with (acute) exacerbation (ICD-10) ?J45.901 - Unspecified asthma with (acute) exacerbation (ICD-10) Family History Father Family history of CHF (congestive heart failure) Family history of hypertension Mother Family history of CHF (congestive heart failure) Family history of COPD (chronic obstructive pulmonary disease) Family history of hypertension Social History Within the past year, how often did you have a drink containing alcohol: monthly or less Within the past year, how many standard drinks containing alcohol did you have on a typical day: 1 or 2 Within the past year, how often did you have six or more drinks on one occasion: never Total score: 0 Score interpretation: A score less than 4 is consistent with normal alcohol consumption. Smoking status: Current every day smoker Non-prescribed substance use: cannabis (any form) Previous occupational history: retired Highest level of school completed/degree received: some college, no degree Are you now , , , , never or living with a partner: In a typical week, how many times do you talk on the telephone with family, friends, or neighbors: twice per week How often do you get together with friends or relatives: twice per week How often do you attend pentecostalism or gnosticism services: never Do you belong to any clubs or organizations such as pentecostalism groups unions, [employer] or athletic groups, or school groups: no Total score: 1 Score interpretation: A score of less than or equal to 1 indicates the most socially isolated. Little interest or pleasure in doing things: not at all Feeling down, depressed, or hopeless: nearly every day Feel stressed/tense/nervous/anxious/difficulty sleeping: rather much Do you think of yourself as: straight/heterosexual Gender Identity: male Meds Home Medications and Allergies Home Medications ?Medication ?Instructions ?Recorded ?Confirmed ?Type albuterol sulfate 2.5 mg/3 mL 2.5 mg inhalation Q6H PRN 12/23/22 04/12/23 History (0.083 %) solution for nebulization shortness of breath or wheezing aspirin 81 mg chewable tablet 81 mg PO DAILY 12/23/22 04/12/23 History glycopyrrolate 9 mcg-formoterol 2 inh inhalation Q12H 12/23/22 04/12/23 History 4.8 mcg HFA aerosol inhaler ([employer]) budesonide 0.5 mg/2 mL suspension 0.5 mg (2 mL) inhalation BID PRN 02/07/23 02/09/23 Rx for nebulization shortness of breath #60 mL levofloxacin 750 mg tablet 750 mg PO DAILY 7 days #7 tabs 02/07/23 02/09/23 Rx buspirone 10 mg tablet 10 mg PO DAILY 02/09/23 04/12/23 History fluticasone propionate 50 2 spray intranasal DAILY 02/10/23 04/12/23 History mcg/actuation nasal spray,suspension (24 Hour Allergy Relief) oxymetazoline 0.05 % nasal spray 2 spray intranasal Q12H 02/10/23 02/10/23 History (12 Hour Nasal Relief Goldvein) alprazolam 0.5 mg tablet 0.5 mg PO TID PRN anxiety 5 days 02/12/23 04/12/23 Rx #15 tabs prednisone 20 mg tablet 20 mg PO DAILY #1 tab 02/12/23 Rx acetaminophen 325 mg tablet 650 mg PO Q6H PRN fever or pain 04/12/23 04/12/23 History (Non-Aspirin) cephalexin 500 mg capsule 500 mg PO Q8H 10 days #30 caps 04/12/23 Rx cephalexin 500 mg capsule 500 mg PO Q8H 10 days #30 caps 04/12/23 Rx cholecalciferol (vitamin D3) 1,250 50,000 unit PO QWEEK 04/12/23 04/12/23 History mcg (50,000 unit) tablet ferrous sulfate 325 mg (65 mg 325 mg PO DAILY 04/12/23 04/12/23 History iron) tablet (Keesha-Time) hydrocodone 5 mg-acetaminophen 325 1 tab PO Q6H PRN pain 3 days #12 04/12/23 Rx mg tablet tabs metformin 500 mg tablet,extended 500 mg PO DAILY 04/12/23 04/12/23 History release 24 hr omega 1-fvw-ikp-fish oil 1,000 mg 1 cap PO DAILY 04/12/23 04/12/23 History (120 mg-180 mg) capsule (Fish Oil) ondansetron 4 mg disintegrating 4 mg PO Q6H PRN nausea and 04/12/23 Rx tablet vomiting #12 tabs ondansetron 4 mg disintegrating 4 mg PO Q6H PRN nausea and 04/12/23 Rx tablet vomiting #12 tabs oxymetazoline 0.05 % nasal spray 2 spray intranasal BID 04/12/23 04/12/23 History prednisolone sodium phosphate 10 20 mg PO DAILY 04/12/23 04/12/23 History mg disintegrating tablet umeclidinium 62.5 mcg/actuation 1 inh inhalation Q24H 04/12/23 04/12/23 History blister powder for inhalation (Incruse Ellipta) Allergies Allergy/AdvReac Type Severity Reaction Status Date / Time No Known Drug Allergies Allergy Verified 04/12/23 18:16 Exam Constitutional Documenting provider has reviewed patient's vital signs: yes Common normals: no apparent distress, oriented x3, healthy appearing, alert and well nourished General appearance: cooperative [facility] Common normals: normocephalic, hearing grossly normal bilaterally and moist oral mucous membranes Head and scalp: normocephalic Eye Common normals: PERRL Pupil: PERRL Neck & C-Spine Common normals: full ROM General: normal visual inspection Chest Common normals: inspection of chest normal Respiratory Common normals: normal respiratory effort, no retractions and no use of accessory muscles Back & Pelvis Lumbar spine/lower back: ROM limited, pain with ROM and straight leg raise negative bilaterally Sacroiliac joints: SI joints normal Back image (male): 1. Extremity Common normals: full ROM Other: discoloration and redness to bilateral lower extremities Neuro Common normals: oriented x3, CN's II-XII intact bilaterally, moves all extremities, no focal motor deficits, no sensory deficits noted and deep tendon reflexes 2+ bilaterally Sensorium/orientation: alert Gait (neuro): assistive device used other (wheelchair) Motor exam: strength 5/5 throughout and no movement abnormalities noted Psych Common normals: mental status grossly normal, thought process normal, cooperative, affect normal, speech normal and activity/motor behavior normal Speech: normal speech Thought process: normal thought process Results Additional Findings Additional findings: If on a controlled substance or opioids, I have checked an [place] report on this patient and there are no aberrancies noted in the prescribing history.??If on a controlled substance or opioid a drug screen was completed and reviewed within the last year, and if there has not been a drug screen completed we ordered one today to monitor higher risk, state monitored pain medication use. As part of providing excellent, safe, comprehensive care, the following was completed at our patient's visit: 1. A medication reconciliation and review to ensure accurate knowledge of current/active medications, including asking our patients to inform us about any ibtp-fwr-ougkxoh medications or herbal remedies/nutritional supplements/alternative remedies. 2. A review to specifically ensure our patients have had annual screening for screening for depression, screening for tobacco use, and screening for unhealthy alcohol use. For concerning screenings had a discussion with the patient, provided patient education, and recommended follow-up with primary care provider when appropriate. If patient noted with a risk of falling, they received education on strength, gait, and balance training to prevent future risk of falling. Assessment and Plan Assessment and Plan (1) Lumbar facet arthropathy: (2) Chronic low back pain: (3) Lumbar compression fracture: Plan continue PT as tolerated, continue medications as prescribed declining bilateral L3-4 L4-5 facet medial branch block x2 working towards RFA. risks vs benefits discussed. educational handouts provided not interested in NS evaluation/surgical intervention f/u as needed, or 1 week after each injection
== END 2023-09-15 10:03 | disposition home or self-care (01) ==
LOC: PM 10:03
PROVIDERS: PCP Family Medicine; Visit Provider Anesthesiology
DX: M47.816 Spondylosis without myelopathy or radiculopathy, lumbar region (principal); M54.50 Low back pain, unspecified; M48.56XA Collapsed vertebra, not elsewhere classified, lumbar region, initial encounter for fracture
CPT/HCPCS: G0463

== ENCOUNTER 2023-12-05 03:21 | Emergency (ER) | payer MEDICARE, MEDICAID, SELFPAY ==
--- OUTSIDE RECORDS SUMMARY | 2023-12-05 03:26 | XMS_ITS | CCD ---
Author Organization [facility] Care Team Providers Care Gaming Director Name Role Phone LENNOX GILL Attending Unavailable LENNOX GILL Consulting Unavailable LENNOX GILL Admitting Unavailable FAWKHAI, HERZOG H Primary Care Unavailable CARLA SANTOS Consulting Unavailable JEFRY SMITH Consulting Unavailable LENNOX GILL Admitting Unavailable LENNOX GILL Attending Unavailable LENNOX GILL Consulting Unavailable FAWWAAriel, HERZOG H Primary Care Unavailable NIELS BERNAL Consulting Unavailable KAYY, HERZOG H Attending Unavailable DR PATRICIA NONE LISTED Primary Care UnavailELI Cotton Consulting Unavailable FALAVON, HERZOG H Admitting Unavailable FALAVON, HERZOG H Consulting Unavailable NIELS BERNAL Consulting Unavailable HOYOS, SHAQUILLE Consulting Unavailable FAWWAD, HERZOG H Admitting Unavailable DR MARIBETH ECDILLO Consulting Unavailable FAWWAAriel, HERZOG H Attending Unavailable FAWWAAriel, HERZOG H Primary Care Unavailable ELI PEREZ Consulting Unavailable JEANNIE GUERRERO Consulting Unavailable FAWWAD, HERZOG H Consulting Unavailable APRYL PARRISH Consulting Unavailable SPENCER, SARA Admitting Unavailable SARA PALMER Attending Unavailable SPENCER SARA Consulting Unavailable FAWWAD, HERZOG H Primary Care Unavailable SHAWN DOBBS Attending Unavailable DAVY DE SOUZA Admitting Unavailable Shaikh Hook MD Primary Care Provider [phone] SHAIKH HOOK Primary Care Unavailable MARIBETH MINOR [...] Onset: 06-20-2022 Episodic Other aftercare (1 source) 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 Basophils (Bld) [#/Vol] 0.04 10*3/uL [facility] Basophils/100 WBC (Bld) 1 % 0 - 2 % [facility] Eosinophils/100 WBC (Bld) 2 % 1 - 4 % [facility] Hematocrit (Bld) [Volume fraction] 42.5 % 40.7 - 50.3 % [facility] Hemoglobin (Bld) [Mass/Vol] 13.4 g/dL 13.0 - 17.0 g/dL [facility] Immature granulocytes/100 WBC (Bld) 2 % High 0 [facility] Interpretation and review of laboratory results Abnormal [facility] Lymphocytes/100 WBC (Bld) 28 % 24 - 43 % [facility] MCH (RBC) [Entitic mass] 31.2 pg 25.2 - 33.5 pg [facility] MCHC (RBC) [Mass/Vol] 31.5 g/dL 28.4 - 34.8 g/dL [facility] MCV (RBC) [Entitic vol] 99.1 fL 82.6 - 102.9 fL [facility] Monocytes/100 WBC (Bld) 7 % 3 - 12 % [facility] NRBC Automated 0.0 0.0 per 100 WBC [facility] Platelet distribution width (Bld) [Ratio] 13.7 % 11.8 - 14.4 % [facility] Platelet mean volume (Bld) [Entitic vol] 11.7 fL 8.1 - 13.5 fL [facility] Platelets (Bld) [#/Vol] 177 10*3/uL [facility] RBC (Bld) [#/Vol] 4.29 10*6/uL 4.21 - 5.7 7 m/uL [facility] Segmented neutrophils/100 WBC (Bld) 60 % 36 - 65 % [facility] Segs Absolute 4.21 [facility] WBC (Bld) [#/Vol] 6.9 10*3/uL [facility] CBC with Diffon 06-27-2022 Abs. Basophil 0.04 k/uL Normal 0.00-0.20 [facility] Comment on above: Performed By: #### E RTPF, FT4, GLYHGB, ALB, TSH, B12, VD25, ECENZ #### [address] [address] Format Proofreader: Abelardo Castaneda MD Abs.Imm.Granulocyte 0.16 k/uL Normal 0.00-0.30 [facility] Comment on above: Performed By: #### E RTPF, FT4, GLYHGB, ALB, TSH, B12, VD25, ECENZ #### [place] [address] Format Proofreader: Abelardo Castaneda MD Abs.Neutrophil (Seg) 4.21 k/uL Normal 1.50-8.10 [facility] Comment on above: Performed By: #### E RTPF, FT4, GLYHGB, ALB, TSH, B12, VD25, ECENZ #### [place] [address] Format Proofreader: Abelardo Castaneda MD Basophils/100 WBC (Bld) 1 % Normal 0-2 [facility] Comment on above: Performed By: #### E RTPF, FT4, GLYHGB, ALB, TSH, B12, VD25, ECENZ #### [place] [address] Format Proofreader: Abelardo Castaneda MD Eosinophils (Bld) [#/Vol] 0.10 10*3/uL Normal 0.00-0.44 [facility] Comment on above: Performed By: #### E RTPF, FT4, GLYHGB, ALB, TSH, B12, VD25, ECENZ #### [address] [address] Format Proofreader: Abelardo Castaneda MD Eosinophils/100 WBC (Bld) 2 % Normal 1-4 [facility] Comment on above: Performed By: #### E RTPF, FT4, GLYHGB, ALB, TSH, B12, VD25, ECENZ #### [address] [id number] Format Proofreader: Abelardo Castaneda MD Erythrocyte distribution width (RBC) [Ratio] 13.7 % Normal 11.8-14.4 [facility] Comment on above: Performed By: #### E RTPF, FT4, GLYHGB, ALB, TSH, B12, VD25, ECENZ #### [address] [phone] Format Proofreader: Abelardo Castaneda MD Hematocrit (Bld) [Volume fraction] 42.5 % Normal 40.7-50.3 [facility] Comment on above: Performed By: #### E RTPF, FT4, GLYHGB, ALB, TSH, B12, VD25, ECENZ #### [address] [address] Format Proofreader: Abelardo Castaneda MD Hemoglobin (Bld) [Mass/Vol] 13.4 g/dL Normal 13.0-17.0 [facility] Comment on above: Performed By: #### E RTPF, FT4, GLYHGB, ALB, TSH, B12, VD25, ECENZ #### [address] [address] Format Proofreader: Abelardo Castaneda MD Immature granulocytes/100 WBC (Bld) 2 % High 0 [facility] Comment on above: Performed By: #### E RTPF, FT4, GLYHGB, ALB, TSH, B12, VD25, ECENZ #### [address] [address] Format Proofreader: Abelardo Castaneda MD Lymphocytes (Bld) [#/Vol] 1.90 10*3/uL Normal 1.10-3.70 [facility] Comment on above: Performed By: #### E RTPF, FT4, GLYHGB, ALB, TSH, B12, VD25, ECENZ #### [address] [phone] Format Proofreader: Abelardo Castaneda MD Lymphocytes/100 WBC (Bld) 28 % Normal 24-43 [facility] Comment on above: Performed By: #### E RTPF, FT4, GLYHGB, ALB, TSH, B12, VD25, ECENZ #### [address] [id number] Format Proofreader: Abelardo Castaneda MD MCH (RBC) [Entitic mass] 31.2 pg Normal 25.2-33.5 [facility] Comment on above: Performed By: #### E RTPF, FT4, GLYHGB, ALB, TSH, B12, VD25, ECENZ #### [address] [address] Format Proofreader: Abelardo Castaneda MD MCHC (RBC) [Mass/Vol] 31.5 g/dL Normal 28.4-34.8 [facility] Comment on above: Performed By: #### E RTPF, FT4, GLYHGB, ALB, TSH, B12, VD25, ECENZ #### [address] [address] Format Proofreader: Abelardo Castaneda MD MCV (RBC) [Entitic vol] 99.1 fL Normal 82.6-102.9 [facility] Comment on above: Performed By: #### E RTPF, FT4, GLYHGB, ALB, TSH, B12, VD25, ECENZ #### [address] [address] Format Proofreader: Abelardo Castaneda MD Monocytes (Bld) [#/Vol] 0.48 10*3/uL Normal 0.10-1.20 [facility] Comment on above: Performed By: #### E RTPF, FT4, GLYHGB, ALB, TSH, B12, VD25, ECENZ #### [address] [address] Format Proofreader: Abelardo Castaneda MD Monocytes/100 WBC (Bld) 7 % Normal 3-12 [facility] Comment on above: Performed By: #### E RTPF, FT4, GLYHGB, ALB, TSH, B12, VD25, ECENZ #### [address] [address] Format Proofreader: Abelardo Castaneda MD Neutrophil (Seg) 60 % Normal 36-65 [facility] Comment on above: Performed By: #### E RTPF, FT4, GLYHGB, ALB, TSH, B12, VD25, ECENZ #### [address] [address] Format Proofreader: Abelardo Castaneda MD NRBC Automated 0.0 per 100 WBC Normal 0.0 [facility] Comment on above: Performed By: #### E RTPF, FT4, GLYHGB, ALB, TSH, B12, VD25, ECENZ #### [address] [address] Format Proofreader: Abelardo Castaneda MD Platelet mean volume (Bld) [Entitic vol] 11.7 fL Normal 8.1-13.5 [facility] Comment on above: Performed By: #### E RTPF, FT4, GLYHGB, ALB, TSH, B12, VD25, ECENZ #### [address] [address] Format Proofreader: Abelardo Castaneda MD Platelets (Bld) [#/Vol] 177 10*3/uL Normal 138-453 [facility] Comment on above: Performed By: #### E RTPF, FT4, GLYHGB, ALB, TSH, B12, VD25, ECENZ #### [address] [address] Format Proofreader: Abelardo Castaneda MD RBC (Bld) [#/Vol] 4.29 10*6/uL Normal 4.21-5.77 [facility] Comment on above: Performed By: #### E RTPF, FT4, GLYHGB, ALB, TSH, B12, VD25, ECENZ #### [address] [address] Format Proofreader: Abelardo Castaneda MD WBC (Bld) [#/Vol] 6.9 10*3/uL Normal 3.5-11.3 [facility] Comment on above: Performed By: #### E RTPF, FT4, GLYHGB, ALB, TSH, B12, VD25, ECENZ #### [address] [address] Format Proofreader: Abelardo Castaneda MD Comp Metabolic Pr/rfx MGon 0 06-27-2022 Anion gap [Moles/Vol] 5 mmol/L Low 9-17 [facility] Comment on above: Performed By: #### E RTPF, FT4, GLYHGB, ALB, TSH, B12, VD25, ECENZ #### [address] [address] Format Proofreader: Abelardo Castaneda MD Chloride [Moles/Vol] 101 mmol/L Normal 98-107 [facility] Comment on above: Performed By: #### E RTPF, FT4, GLYHGB, ALB, TSH, B12, VD25, ECENZ #### [facility] [employer] [address] [place] [address] Format Proofreader: Abelardo Castaneda MD Potassium [Moles/Vol] 4.7 mmol/L Normal 3.7-5.3 [facility] Comment on above: Performed By: #### E RTPF, FT4, GLYHGB, ALB, TSH, B12, VD25, ECENZ #### [address] [id number] Format Proofreader: Abelardo Castaneda MD Sodium [Moles/Vol] 139 mmol/L Normal 135-144 [facility] Comment on above: Performed By: #### E RTPF, FT4, GLYHGB, ALB, TSH, B12, VD25, ECENZ #### [address] [address] Format Proofreader: Abelardo Castaneda MD Albumin [Mass/Vol] 3.0 g/dL Low 3.5-5.2 [facility] Comment on above: Performed By: #### E RTPF, FT4, GLYHGB, ALB, TSH, B12, VD25, ECENZ #### [address] [address] Format Proofreader: Abelardo Castaneda MD Albumin/Glob Ratio 1.2 Normal 1.0-2.5 [facility] Comment on above: Performed By: #### E RTPF, FT4, GLYHGB, ALB, TSH, B12, VD25, ECENZ #### [address] [address] Format Proofreader: Abelardo Castaneda MD Alkaline Phos 80 U/L Normal 40-129 [facility] Comment on above: Performed By: #### E RTPF, FT4, GLYHGB, ALB, TSH, B12, VD25, ECENZ #### [address] [address] Format Proofreader: Abelardo Castaneda MD ALT [Catalytic activity/Vol] 41 U/L Normal 5-41 [facility] Comment on above: Performed By: #### E RTPF, FT4, GLYHGB, ALB, TSH, B12, VD25, ECENZ #### [address] [address] Format Proofreader: Abelardo Castaneda MD AST [Catalytic activity/Vol] 27 U/L Normal <40 [facility] Comment on above: Performed By: #### E RTPF, FT4, GLYHGB, ALB, TSH, B12, VD25, ECENZ #### [address] [address] Format Proofreader: Abelardo Castaneda MD Bilirubin [Mass/Vol] 0.3 mg/dL Normal 0.3-1.2 [facility] Comment on above: Performed By: #### E RTPF, FT4, GLYHGB, ALB, TSH, B12, VD25, ECENZ #### [address] [address] Format Proofreader: Abelardo Castaneda MD Calcium [Mass/Vol] 8.8 mg/dL Normal 8.6-10.4 [facility] Comment on above: Performed By: #### E RTPF, FT4, GLYHGB, ALB, TSH, B12, VD25, ECENZ #### [address] [address] Format Proofreader: Abelardo Castaneda MD CO2 [Moles/Vol] 33 mmol/L High 20-31 [facility] Comment on above: Performed By: #### E RTPF, FT4, GLYHGB, ALB, TSH, B12, VD25, ECENZ #### [address] [address] Format Proofreader: Abelardo Castaneda MD Creatinine [Mass/Vol] 0.81 mg/dL Normal 0.70-1.20 [facility] Comment on above: Performed By: #### E RTPF, FT4, GLYHGB, ALB, TSH, B12, VD25, ECENZ #### [address] [address] Format Proofreader: Abelardo Castaneda MD GFR/1.73 sq M.predicted among non-blacks MDRD (S/P/Bld) [Vol rate/Area] mL/min/{1.73_m2} Normal >60 [facility] Comment on above: Result Comment: These results [...] GLYHGB, ALB, TSH, B12, VD25, ECENZ #### [facility] [address] [place] [address] Format Proofreader: Abelardo Casatneda MD Glucose [Mass/Vol] 96 mg/dL Normal 70-99 [facility] Comment on above: Performed By: #### E RTPF, FT4, GLYHGB, ALB, TSH, B12, VD25, ECENZ #### [facility] [employer] [address] [place] [address] Format Proofreader: Abelardo Castaneda MD Protein [Mass/Vol] 5.6 g/dL Low 6.4-8.3 [facility] Comment on above: Performed By: #### E RTPF, FT4, GLYHGB, ALB, TSH, B12, VD25, ECENZ #### [facility] [address] [place] [address] Format Proofreader: Abelardo Castaneda MD Urea nitrogen [Mass/Vol] 21 mg/dL Normal 8-23 [facility] Comment on above: Performed By: #### E RTPF, FT4, GLYHGB, ALB, TSH, B12, VD25, ECENZ #### [facility] [employer] [address] [place] [address] Format Proofreader: Abelardo Castaneda MD Comprehensive Metabolic Pane l w/ Reflex to MGon 06-27-2022 Albumin [Mass/Vol] 3 g/dL Low 3.5 - 5.2 g/dL [facility] Albumin/Globulin [Mass ratio] 1.2 {ratio} 1.0 - 2.5 [facility] ALP [Catalytic activity/Vol] 80 U/L 40 - 129 U/L [facility] ALT [Catalytic activity/Vol] 41 U/L 5 - 41 U/L [facility] Anion gap [Moles/Vol] 5 mmol/L Low 9 - 17 mmol/L [facility] AST [Catalytic activity/Vol] 27 U/L NINF - 40 U/L [facility] Bilirubin [Mass/Vol] 0.3 mg/dL 0.3 - 1 .2 mg/dL [facility] Calcium [Mass/Vol] 8.8 mg/dL 8.6 - 10. 4 mg/dL [facility] Chloride [Moles/Vol] 101 mmol/L 98 - 10 7 mmol/L [facility] CO2 [Moles/Vol] 33 mmol/L High 20 - 31 mmol/L [facility] Creatinine [Mass/Vol] 0.81 mg/dL 0.70 - 1.20 mg/dL [facility] GFR/1.73 sq M.predicted MDRD (S/P/Bld) [Vol rate/Area] - PINF [facility] Comment on above: These results are not [...] [Mass/Vol] 96 mg/dL 70 - 99 mg/dL [facility] Interpretation and review of laboratory results Abnormal [facility] Potassium [Moles/Vol] 4.7 mmol/L 3.7 - 5.3 mmol/L [facility] Protein [Mass/Vol] 5.6 g/dL Low 6.4 - 8.3 g/dL [facility] Sodium [Moles/Vol] 139 mmol/L 135 - 144 mmol/L [facility] Urea nitrogen [Mass/Vol] 21 mg/dL 8 - 23 mg/dL [facility] Albuminon 02-24-2023 Albumin [Mass/Vol] 3.5 g/dL Normal 3.5-5.2 [facility] Comment on above: Performed By: #### E RTPF, FT4, GLYHGB, ALB, TSH, B12, VD25, ECENZ #### [address] [id number] Format Proofreader: Abelardo Castaneda MD Albumin [Mass/Vol] 3.5 g/dL 3.5 - 5.2 g/dL [facility] Drug Scr, Abuse, Uron 2022 Amphetamine(s),Ur Negative Normal NEG [facility] Comment on above: Result Comment: (Positive cutoff 1000 ng/mL) Performed By: #### E RTPF, FT4, GLYHGB, ALB, TSH, B12, VD25, ECENZ #### [place] [id number] Format Proofreader: Abelardo Castaneda MD Barbiturate(s),Ur Negative Normal NEG [facility] Comment on above: Result Comment: (Positive cutoff 200 ng/mL) Performed By: #### E RTPF, FT4, GLYHGB, ALB, TSH, B12, VD25, ECENZ #### [facility] [employer] [address] [place] [address] [phone] Format Proofreader: Abelardo Castaneda MD Benzodiazepine(s) Negative Normal NEG [facility] Comment on above: Result Comment: (Positive cutoff 200 ng/mL) Performed By: #### E RTPF, FT4, GLYHGB, ALB, TSH, B12, VD25, ECENZ #### [facility] [employer] [address] [place] [address] [phone] Format Proofreader: Abelardo Castaneda MD Cannabinoid(s),Ur Positive Abnormal NEG [facility] Comment on above: Result Comment: (Positive cutoff 50 ng/mL) Performed By: #### E RTPF, FT4, GLYHGB, ALB, TSH, B12, VD25, ECENZ #### [facility] [address] [place] [phone] Format Proofreader: Abelardo Castaneda MD Cocaine Metabolite Negative Normal NEG [facility] Comment on above: Result Comment: (Positive cutoff 300 ng/mL) Performed By: #### E RTPF, FT4, GLYHGB, ALB, TSH, B12, VD25, ECENZ #### [facility] [employer] [address] [place] [address] Format Proofreader: Abelardo Castaneda MD Fentanyl, Urine Positive Abnormal NEG [facility] Comment on above: Result Comment: (Positive cutoff 5 ng/ml) Performed By: #### E RTPF, FT4, GLYHGB, ALB, TSH, B12, VD25, ECENZ #### [address] [address] Format Proofreader: Abelardo Castaneda MD Interpretive Info Assay provides medical screening only. The absence of expected drug(s) and/or Normal [facility] Comment on above: Result Comment: meta bolite(s) may indicate diluted or adulterated urine, limitations of testing or timing of collection. Testing for legal purposes should be confirmed by another method. To request confirmation of test result, please call the lab within 7 days of sample submission. Performed By: #### E RTPF, FT4, GLYHGB, ALB, TSH, B12, VD25, ECENZ #### [facility] [address] [place] [phone] Format Proofreader: Abelardo Castaneda MD Methadone Ql (U) Negative Normal NEG [facility] Comment on above: Result Comment: (Positive cutoff 300 ng/mL) Performed By: #### E RTPF, FT4, GLYHGB, ALB, TSH, B12, VD25, ECENZ #### [facility] [employer] [address] [place] [address] Format Proofreader: Abelardo Castaneda MD Opiate(s), Ur Positive Abnormal NEG [facility] Comment on above: Result Comment: (Positive cutoff 300 ng/mL) Performed By: #### E RTPF, FT4, GLYHGB, ALB, TSH, B12, VD25, ECENZ #### [facility] [address] [place] [address] [phone] Format Proofreader: Abelardo Castaneda MD Oxycodone, Urine Negative Normal NEG [facility] Comment on above: Result Comment: (Positive cutoff 100 ng/mL) Performed By: #### E RTPF, FT4, GLYHGB, ALB, TSH, B12, VD25, ECENZ #### [facility] [address] [place] [address] [phone] Format Proofreader: Abelardo Castaneda MD Phencyclidine, Ur Negative Normal NEG [facility] Comment on above: Result Comment: (Positive cutoff 25 ng/mL) Performed By: #### E RTPF, FT4, GLYHGB, ALB, TSH, B12, VD25, ECENZ #### [facility] [address] [place] [address] [phone] Format Proofreader: Abelardo Castaneda MD Drug screen multi urineon [...] 300 ng/mL) Oxycodone Screen, Ur Negative NEGATIVE [facility] Comment on above: (Positive cutoff 100 ng/mL) Phencyclidine, Urine Negative NEGATIVE [facility] Comment on above: (Positive cutoff 25 ng/mL) Test Information Assay provides medical screening only. The absence of expected drug(s) and/or metabolite(s) may indicate diluted or adulterated urine, limitations of testing or timing of collection. [facility] Comment on above: Testing for legal pu rposes should be confirmed by another method. To request confirmation of test result, please call the lab within 7 days of sample submission. [facility] Hemoglobin A1Con 06-26-2022 Glucose [Mass/Vol] 134 mg/dL Normal [facility] Comment on above: Result Comment: The ADA and AACC recommend providing the estimated average glucose result to permit better patient understanding of their HBA1c result. Performed By: #### E RTPF, FT4, GLYHGB, ALB, TSH, B12, VD25, ECENZ #### [facility] [address] [place] [phone] Format Proofreader: Abelardo Castaneda MD HbA1c (Bld) [Mass fraction] 6.3 % High 4.0-6.0 [facility] Comment on above: Performed By: #### E RTPF, FT4, GLYHGB, ALB, TSH, B12, VD25, ECENZ #### [facility] [employer] [address] [place] [address] [phone] Format Proofreader: Abelardo Castaneda MD Average glucose Estimated from glycated hemoglobin (Bld) [Mass/Vol] 134 mg/dL [facility] Comment on above: The ADA and AACC rec ommend providing the estimated average glucose result to permit better patient understanding of their HBA1c result. HbA1c (Bld) [Mass fraction] 6.3 % High 4.0 - 6.0 % [facility] Interpretation and review of laboratory results Abnormal [facility] No Panel Informationon 06-26 Interpretation and review of laboratory results Abnormal [facility] Radiology Study observation (narrative) [facility] Work Phone: T4, Freeon 06-26-2022 Free T4 [Mass/Vol] 1.38 ng/dL 0.93 - 1. 70 ng/dL [facility] TROP/MYOGLOBINon 06-26-2022 Myoglobin [Mass/Vol] 27 ng/mL Low 28 - 72 ng/mL [facility] Troponin I.cardiac DL <= 0.01 ng/mL [Mass/Vol] 16 ng/L 0 - 22 ng/L [facility] Comment on above: High Sensitivity Tro ponin values cannot be compared with other Troponin methodologies. TSHon 06-26-2022 TSH Qn 2.95 m[IU]/L [facility] TYPE AND SCREENon 06-26-2022 ABO/Rh Positive [facility] Arm Band Number [id number] [facility] Expiration Date 06/29/2022,2354 [facility] Thyroid Stim. Horm.on 2022 Thyroid Stim. Horm. 2.95 uIU/mL Normal 0.30-5.00 [facility] Comment on above: Performed By: #### E RTPF, FT4, GLYHGB, ALB, TSH, B12, VD25, ECENZ #### [facility] [address] [place] [phone] Format Proofreader: Abelardo Castaneda MD Thyroxine, Freeon 06-26-2022 Thyroxine, Free 1.38 ng/dL Normal 0.93-1.70 [facility] Comment on above: Performed By: #### E RTPF, FT4, GLYHGB, ALB, TSH, B12, VD25, ECENZ #### [facility] [employer] [address] [place] [phone] Format Proofreader: Abelardo Castaneda MD Trauma Panelon 06-26-2022 Anion gap [Moles/Vol] 11 mmol/L 9 - 17 mmol/L [facility] aPTT Coag (Bld) [Time] 22.1 s [facility] Comment on above: IV Heparin Therapy Range: 48.6-77.8 Blood Bank Specimen BILL FOR SERVICES PERFORMED [facility] Carboxyhemoglobin 6.3 % High 0 - 5 % [facility] Comment on above: Reference Range: Non-Smokers 0-2% Average Smoker 2-4% Heavy Smoker <10% Chloride [Moles/Vol] 100 mmol/L 98 - 10 7 mmol/L [facility] CO2 [Moles/Vol] 28 mmol/L 20 - 31 mmol/L [facility] Creatinine [Mass/Vol] 0.74 mg/dL 0.70 - 1.20 mg/dL [facility] Ethanol [Mass/Vol] mg/dL NINF - 10 mg/dL [facility] Ethanol percent <0.010 NINF - 0.010 % [facility] [employer] FIO2 Unknown [facility] GFR/1.73 sq M.predicted MDRD (S/P/Bld) [Vol rate/Area] - PINF [facility] Comment on above: These results are not [...] 145 mg/dL High 70 - 99 mg/dL [facility] hCG Qual PT IS MALE [facility] HCO3 (Bld) [Moles/Vol] 30.9 mmol/L High 24 - 30 mmol/L [facility] Hematocrit (Bld) [Volume fraction] 49.4 % 40.7 - 50.3 % [facility] Hemoglobin (Bld) [Mass/Vol] 15.4 g/dL 13.0 - 17.0 g/dL [facility] INR Coag (PPP) [Relative time] 1.0 {INR} [facility] Comment on above: Therapeutic Range: Moderate Anticoagulant Intensity: INR = 2.0-3.0 High Anticoagulant Intensity: INR = 2.5-3.5 Interpretation and review of laboratory results Abnormal [facility] MCH (RBC) [Entitic mass] 31.0 pg 25.2 - 33.5 pg [facility] MCHC (RBC) [Mass/Vol] 31.2 g/dL 28.4 - 34.8 g/dL [facility] MCV (RBC) [Entitic vol] 99.6 fL 82.6 - 102.9 fL [facility] NRBC Automated 0.0 0.0 per 100 WBC [facility] Oxygen saturation in Blood 67.6 % 60.0 - 85.0 % [facility] pCO2, Colin 50.3 [facility] pH, Colin 7.405 7.320 - 7.420 [facility] Platelet distribution width (Bld) [Ratio] 13.4 % 11.8 - 14.4 % [facility] Platelet mean volume (Bld) [Entitic vol] 11.4 fL 8.1 - 13.5 fL [facility] Platelets (Bld) [#/Vol] 201 10*3/uL [facility] pO2, Colin 32.4 [facility] Positive Base Excess, Colin 5.2 mmol/L High 0.0 - 2.0 mmol/L [facility] Potassium [Moles/Vol] 4.8 mmol/L 3.7 - 5.3 mmol/L [facility] PT Coag (PPP) [Time] 10.8 s [facility] Pt Temp 37.0 [facility] RBC (Bld) [#/Vol] 4.96 10*6/uL 4.21 - 5.7 7 m/uL [facility] Sodium [Moles/Vol] 139 mmol/L 135 - 144 mmol/L [facility] Urea nitrogen [Mass/Vol] 19 mg/dL 8 - 23 mg/dL [facility] WBC (Bld) [#/Vol] 9.6 10*3/uL [facility] Trauma Profileon 06-26-2022 Potassium [Moles/Vol] 4.8 mmol/L Normal 3.7-5.[address] [facility] Comment on above: Performed By: #### E RTPF, FT4, GLYHGB, ALB, TSH, B12, VD25, ECENZ #### [address] [address] Format Proofreader: Abelardo Castaneda MD Anion gap [Moles/Vol] 11 mmol/L Normal 9-17 [facility] Comment on above: Performed By: #### E RTPF, FT4, GLYHGB, ALB, TSH, B12, VD25, ECENZ #### [address] [address] Format Proofreader: Abelardo Castaneda MD Chloride [Moles/Vol] 100 mmol/L Normal 98-107 [facility] Comment on above: Performed By: #### E RTPF, FT4, GLYHGB, ALB, TSH, B12, VD25, ECENZ #### [address] [address] Format Proofreader: Abelardo Castaneda MD CO2 [Moles/Vol] 28 mmol/L Normal 20-31 [facility] Comment on above: Performed By: #### E RTPF, FT4, GLYHGB, ALB, TSH, B12, VD25, ECENZ #### [address] [address] Format Proofreader: Abelardo Castaneda MD Creatinine [Mass/Vol] 0.74 mg/dL Normal 0.70-1.20 [facility] Comment on above: Performed By: #### E RTPF, FT4, GLYHGB, ALB, TSH, B12, VD25, ECENZ #### [address] [address] Format Proofreader: Abelardo Castaneda MD GFR/1.73 sq M.predicted among non-blacks MDRD (S/P/Bld) [Vol rate/Area] mL/min/{1.73_m2} Normal >60 [facility] Comment on above: Result Comment: These results [...] GLYHGB, ALB, TSH, B12, VD25, ECENZ #### [address] [address] Format Proofreader: Abelardo Castaneda MD Glucose [Mass/Vol] 145 mg/dL High 70-99 [facility] Comment on above: Performed By: #### E RTPF, FT4, GLYHGB, ALB, TSH, B12, VD25, ECENZ #### [address] [address] Format Proofreader: Abelardo Castaneda MD Sodium [Moles/Vol] 139 mmol/L Normal 135-144 [facility] Comment on above: Performed By: #### E RTPF, FT4, GLYHGB, ALB, TSH, B12, VD25, ECENZ #### [address] [address] Format Proofreader: Abelardo Castaneda MD Urea nitrogen [Mass/Vol] 19 mg/dL Normal 8-23 [facility] Comment on above: Performed By: #### E RTPF, FT4, GLYHGB, ALB, TSH, B12, VD25, ECENZ #### [address] [address] Format Proofreader: Abelardo Castaneda MD Ethanol [Mass/Vol] mg/dL Normal <10 [facility] Comment on above: Performed By: #### E RTPF, FT4, GLYHGB, ALB, TSH, B12, VD25, ECENZ #### [address] [place] [id number] Format Proofreader: Abelardo Castaneda MD Ethanol percent <0.010 Normal <0.010 [facility] Comment on above: Performed By: #### E RTPF, FT4, GLYHGB, ALB, TSH, B12, VD25, ECENZ #### [place] [id number] Format Proofreader: Abelardo Castaneda MD aPTT Coag (Bld) [Time] 22.1 s Normal 20.5-30.5 [facility] Comment on above: Result Comment: IV Heparin Therapy Range: 48.6-77.8 Performed By: #### E RTPF, FT4, GLYHGB, ALB, TSH, B12, VD25, ECENZ #### [place] [address] Format Proofreader: Abelardo Castaneda MD INR Coag (PPP) [Relative time] 1.0 {INR} Normal [facility] Comment on above: Result Comment: Therapeutic Range: Moderate Anticoagulant Intensity: INR = 2.0-3.0 High Anticoagulant Intensity: INR = 2.5-3.5 Performed By: #### E RTPF, FT4, GLYHGB, ALB, TSH, B12, VD25, ECENZ #### [place] [id number] Format Proofreader: Abelardo Castaneda MD PT Coag (PPP) [Time] 10.8 s Normal 9.1-12.3 [facility] Comment on above: Performed By: #### E RTPF, FT4, GLYHGB, ALB, TSH, B12, VD25, ECENZ #### [address] [id number] Format Proofreader: Abelardo Castaneda MD Body Temp. 37.0 Normal [facility] Comment on above: Performed By: #### E RTPF, FT4, GLYHGB, ALB, TSH, B12, VD25, ECENZ #### [address] [address] Format Proofreader: Abelardo Castaneda MD Carboxy Hgb 6.3 % High 0-5 [facility] Comment on above: Result Comment: Reference Range: Non-Smokers 0-2% Average Smoker 2-4% Heavy Smoker <10% Performed By: #### E RTPF, FT4, GLYHGB, ALB, TSH, B12, VD25, ECENZ #### [address] [address] Format Proofreader: Abelardo Castaneda MD FIO2 Unknown Normal [facility] Comment on above: Performed By: #### E RTPF, FT4, GLYHGB, ALB, TSH, B12, VD25, ECENZ #### [address] [address] Format Proofreader: Abelardo Castaneda MD HCO3 (Bld) [Moles/Vol] 30.9 mmol/L High 24-30 [facility] Comment on above: Performed By: #### E RTPF, FT4, GLYHGB, ALB, TSH, B12, VD25, ECENZ #### [address] [address] Format Proofreader: Abelardo Castaneda MD Oxygen saturation in Blood 67.6 % Normal 60.0-85.0 [facility] Comment on above: Performed By: #### E RTPF, FT4, GLYHGB, ALB, TSH, B12, VD25, ECENZ #### [address] [address] Format Proofreader: Abelardo Castaneda MD pCO2 50.3 mm Hg Normal 39-55 [facility] Comment on above: Performed By: #### E RTPF, FT4, GLYHGB, ALB, TSH, B12, VD25, ECENZ #### [address] [id number] Format Proofreader: Abelardo Castaneda MD pH (Bld) 7.405 [pH] Normal 7.320-7.420 [facility] Comment on above: Performed By: #### E RTPF, FT4, GLYHGB, ALB, TSH, B12, VD25, ECENZ #### [address] [address] Format Proofreader: Abelardo Castaneda MD pO2 32.4 mm Hg Normal 30-50 [facility] Comment on above: Performed By: #### E RTPF, FT4, GLYHGB, ALB, TSH, B12, VD25, ECENZ #### [address] [address] Format Proofreader: Abelardo Castaneda MD Positive Base Excess 5.2 mmol/L High 0.0-2.0 [facility] Comment on above: Performed By: #### E RTPF, FT4, GLYHGB, ALB, TSH, B12, VD25, ECENZ #### [address] [address] Format Proofreader: Abelardo Castaneda MD Erythrocyte distribution width (RBC) [Ratio] 13.4 % Normal 11.8-14.4 [facility] Comment on above: Performed By: #### E RTPF, FT4, GLYHGB, ALB, TSH, B12, VD25, ECENZ #### [facility] [employer] [address] [place] [address] Format Proofreader: Abelardo Castaneda MD Hematocrit (Bld) [Volume fraction] 49.4 % Normal 40.7-50.3 [facility] Comment on above: Performed By: #### E RTPF, FT4, GLYHGB, ALB, TSH, B12, VD25, ECENZ #### [address] [address] Format Proofreader: Abelardo Castaneda MD Hemoglobin (Bld) [Mass/Vol] 15.4 g/dL Normal 13.0-17.0 [facility] Comment on above: Performed By: #### E RTPF, FT4, GLYHGB, ALB, TSH, B12, VD25, ECENZ #### [address] [address] Format Proofreader: Abelardo Castaneda MD MCH (RBC) [Entitic mass] 31.0 pg Normal 25.2-33.5 [facility] Comment on above: Performed By: #### E RTPF, FT4, GLYHGB, ALB, TSH, B12, VD25, ECENZ #### [address] [address] Format Proofreader: Abelardo Castaneda MD MCHC (RBC) [Mass/Vol] 31.2 g/dL Normal 28.4-34.8 [facility] Comment on above: Performed By: #### E RTPF, FT4, GLYHGB, ALB, TSH, B12, VD25, ECENZ #### [address] [id number] Format Proofreader: Abelardo Castaneda MD MCV (RBC) [Entitic vol] 99.6 fL Normal 82.6-102.9 [facility] Comment on above: Performed By: #### E RTPF, FT4, GLYHGB, ALB, TSH, B12, VD25, ECENZ #### [address] [address] Format Proofreader: Abelardo Castaneda MD NRBC Automated 0.0 per 100 WBC Normal 0.0 [facility] Comment on above: Performed By: #### E RTPF, FT4, GLYHGB, ALB, TSH, B12, VD25, ECENZ #### [address] [id number] Format Proofreader: Abelardo Castaneda MD Platelet mean volume (Bld) [Entitic vol] 11.4 fL Normal 8.1-13.5 [facility] Comment on above: Performed By: #### E RTPF, FT4, GLYHGB, ALB, TSH, B12, VD25, ECENZ #### [address] [address] Format Proofreader: Abelardo Castaneda MD Platelets (Bld) [#/Vol] 201 10*3/uL Normal 138-453 [facility] Comment on above: Performed By: #### E RTPF, FT4, GLYHGB, ALB, TSH, B12, VD25, ECENZ #### [address] [address] Format Proofreader: Abelardo Castaneda MD RBC (Bld) [#/Vol] 4.96 10*6/uL Normal 4.21-5.77 [facility] Comment on above: Performed By: #### E RTPF, FT4, GLYHGB, ALB, TSH, B12, VD25, ECENZ #### [address] [address] Format Proofreader: Abelardo Castaneda MD WBC (Bld) [#/Vol] 9.6 10*3/uL Normal 3.5-11.3 [facility] Comment on above: Performed By: #### E RTPF, FT4, GLYHGB, ALB, TSH, B12, VD25, ECENZ #### [address] [address] Format Proofreader: Abelardo Castaneda MD Blood Bank BILL FOR SERVICES PERFORMED Normal [facility] Comment on above: Performed By: #### E RTPF, FT4, GLYHGB, ALB, TSH, B12, VD25, ECENZ #### [address] [address] Format Proofreader: Abelardo Castaneda MD Trop/Myoglobinon 06-26-2022 Myoglobin [Mass/Vol] 27 ng/mL Low 28-72 [facility] Comment on above: Performed By: #### E RTPF, FT4, GLYHGB, ALB, TSH, B12, VD25, ECENZ #### [facility] [address] [place] [address] Format Proofreader: Abelardo Castaneda MD Troponin, High Sens 16 ng/L Normal 0-22 [facility] Comment on above: Result Comment: High Sensitivity Troponin values cannot be compared with other Troponin methodologies. Performed By: #### E RTPF, FT4, GLYHGB, ALB, TSH, B12, VD25, ECENZ #### [facility] [address] [place] [address] [id number] Format Proofreader: Abelardo Castaneda MD Type + Screenon 06-26-2022 Type + Screen Sample Expiration 06/29/2022,2359 Arm Band Number BE [id number] ABO/Rh(D) O POSITIVE Antibody Screen NEGATIVE Normal [facility] Comment on above: Performed By: #### T YS #### [facility] [address] [place] [address] [id number] Format Proofreader: Abelardo Castaneda MD Vitamin B12on 06-26-2022 Cobalamin (Vitamin B12) [Mass/Vol] 531 pg/mL Normal 232-1245 [facility] Comment on above: Performed By: #### E RTPF, FT4, GLYHGB, ALB, TSH, B12, VD25, ECENZ #### [facility] [address] [place] [address] Format Proofreader: Abelardo Castaneda MD Cobalamin (Vitamin B12) [Mass/Vol] 531 pg/mL 232 - 1245 pg/mL [facility] [employer] Vitamin D 25 Hydroxyon 06-26 25-hydroxyvitamin D3 [Mass/Vol] 14.5 ng/mL Low 29.9 - PINF ng/mL [facility] [employer] Comment on above: Reference Range: Vitamin D status Range Deficiency <20 ng/mL Mild Deficiency 20-30 ng/mL Sufficiency 30-100 ng/mL Toxicity >100 ng/mL Vitamin D 25 OHon 06-26-2022 Vitamin D 25 OH 14.5 ng/mL Low >29.9 [facility] Comment on above: Result Comment: Reference Range: Vitamin D status Range Deficiency <20 ng/mL Mild Deficiency 20-30 ng/mL Sufficiency 30-100 ng/mL Toxicity >100 ng/mL Performed By: #### E RTPF, FT4, GLYHGB, ALB, TSH, B12, VD25, ECENZ #### [facility] [employer] [address] [place] [address] Format Proofreader: Abelardo Castaneda MD XR CHEST PORTABLEon 06-26-19 [...] Boris Bocanegra MD 06/26/22 Final result Normal [facility] No acute process. [facility] EXAMINATION: ONE XRAY VIEW OF THE CHEST 06/26/2022 10:26 am COMPARISON: None. HISTORY: ORDERING SYSTEM PROVIDED HISTORY: burn, copd TECHNOLOGIST PROVIDED HISTORY: burn, copd FINDINGS: The lungs are hyperinflated without acute focal process. There is no effusion or pneumothorax. The cardiomediastinal silhouette is without acute process. The osseous structures are without acute process. [facility] Boris Bocanegra MD - 06/26/2022 EXAMINATION: ONE XRAY VIEW OF THE CHEST 06/26/2022 10:26 am COMPARISON: None. HISTORY: ORDERING SYSTEM PROVIDED HISTORY: burn, copd TECHNOLOGIST PROVIDED HISTORY: burn, copd FINDINGS: The lungs are hyperinflated without acute focal process. There is no effusion or pneumothorax. The cardiomediastinal silhouette is without acute process. The osseous structures are without acute process. IMPRESSION: No acute process. [facility] Work Phone: XR CHEST PORTABLEOrdered By: Boris Bocanegra on 06-26-2022 [employer] Phone: XR HAND LEFT (MIN 3 VIEWS)on [...] Stan Ruiz MD 06/26/22 Final result Normal [facility] No acute abnormality identified. Chronic appearing deformities of the 4th ray. [facility] EXAMINATION: THREE XRAY VIEWS OF THE LEFT HAND 06/26/2022 10:26 am COMPARISON: None. HISTORY: ORDERING SYSTEM PROVIDED HISTORY: bruising, fell TECHNOLOGIST PROVIDED HISTORY: bruising, fell FINDINGS: Chronic deformity of the 4th metacarpal is seen. Sharp flexion deformity at the proximal interphalangeal joint of the ring finger noted. No acute fracture is identified. No radiopaque foreign bodies are detected. [facility] Stan Ruiz MD - [...] Chronic appearing deformities of the 4th ray. [employer] Phone: XR HAND LEFT (MIN 3 VIEWS)Or dered By: Stan Ruiz on 06-26-2022 [facility] [employer] Work Phone: CNCOon 06-23-2022 [facility] Letter Text Normal [facility] Basic metabolic 2000 panelon 06-21-2022 Anion gap [Moles/Vol] 6 mmol/L Low 9-18 [facility] Comment on above: Order Comment: Speci men Type: BLOOD SPECIMEN Ordering Facility: [facility] Address: [address] Performed By: #### 3 4528-0, 99130-8 #### [facility] CLIA [id number] [address] [place] [address] [place] Calcium [Mass/Vol] 8.5 mg/dL Normal 8.5-10.2 [facility] Comment on above: Order Comment: Speci men Type: BLOOD SPECIMEN Ordering Facility: [facility] Address: [address] [place], [place] [address] Performed By: #### 3 4528-0, 83165-2 #### [facility] CLIA [id number] [address] [place] [address] [place] Chloride [Moles/Vol] 104 mmol/L Normal 97-105 [facility] Comment on above: Order Comment: Speci men Type: BLOOD SPECIMEN Ordering Facility: [facility] Address: [address] Performed By: #### 3 4528-0, 33172-5 #### [facility] CLIA [id number] [address] [place] [address] [place] CO2 [Moles/Vol] 31 mmol/L High 22-30 [facility] Comment on above: Order Comment: Speci men Type: BLOOD SPECIMEN Ordering Facility: [facility] Address: [address] Performed By: #### 3 4528-0, 92903-1 #### [facility] CLIA [id number] [address] [place] [address] [place] Creatinine [Mass/Vol] 0.76 mg/dL Normal 0.73-1.22 [facility] Comment on above: Order Comment: Leighann suazo Type: BLOOD SPECIMEN Ordering Facility: [facility] Address: [address] [place] [address] Performed By: #### 3 4528-0, 93922-5 #### [facility] CLIA [id number] [address] [place] [address] [place] ESTIMATED GLOMERULAR FILTRATION RATE 99 mL/min/1.73m??? Normal >=60 [facility] Comment on above: Order Comment: Leighann suazo Type: BLOOD SPECIMEN Ordering Facility: [facility] Address: [address] [place] [address] Result Comment: [place] mated Glomerular Filtration Rate [...] actual GFR. Performed By: #### 3 4528-0, 71190-5 #### [facility] CLIA [id number] [address] [place] [address] [place] Glucose [Mass/Vol] 120 mg/dL High 74-99 [facility] Comment on above: Order Comment: Leighann suazo Type: BLOOD SPECIMEN Ordering Facility: [facility] Address: [address] [place] [address] Result Comment: The [place] [employer] (ADA) provides guidance for cutoff [...] Standards of Medical Care in Diabetes 2016, [place] [employer]. Diabetes Care. 2016.39(Suppl 1). Performed By: #### 3 4528-0, 77555-2 #### [facility] CLIA [id number] [address] [place] [address] [place] Potassium [Moles/Vol] 4.7 mmol/L Normal 3.7-5.1 [facility] Comment on above: Order Comment: Speci men Type: BLOOD SPECIMEN Ordering Facility: [facility] Address: [address] [place] [address] Performed By: #### 3 4528-0, 02365-5 #### [facility] CLIA [id number] [address] [place] [address] [place] Sodium [Moles/Vol] 141 mmol/L Normal 136-144 [facility] Comment on above: Order Comment: Speci men Type: BLOOD SPECIMEN Ordering Facility: [facility] Address: [address] [place] [address] Performed By: #### 3 4528-0, 02363-3 #### [facility] CLIA [id number] [address] [place] [address] [place] Urea nitrogen [Mass/Vol] 19 mg/dL Normal 9-24 [facility] Comment on above: Order Comment: Speci men Type: BLOOD SPECIMEN Ordering Facility: [facility] Address: [address] Performed By: #### 3 4528-0, 34306-8 #### [facility] CLIA [id number] [address] [place] [address] [place] CBC panel Auto (Bld)on 06-21 Erythrocyte distribution width (RBC) [Ratio] 13.5 % Normal 11.5-15.0 [facility] Comment on above: Order Comment: Speci men Type: BLOOD SPECIMEN Ordering Facility: [facility] Address: [address] [place], [place] [address] Performed By: #### 3 4528-0, 01827-7 #### [facility] CLIA [id number] [address] [place] [address] [place] Hematocrit (Bld) [Volume fraction] 43.8 % Normal 39.0-51.0 [facility] Comment on above: Order Comment: Speci men Type: BLOOD SPECIMEN Ordering Facility: [facility] Address: [address] [place], [place] [address] Performed By: #### 3 4528-0, 40969-4 #### [facility] CLIA [id number] [address] [place] [address] [place] Hemoglobin (Bld) [Mass/Vol] 14.2 g/dL Normal 13.0-17.0 [facility] Comment on above: Order Comment: Speci men Type: BLOOD SPECIMEN Ordering Facility: [facility] Address: [address] [place], [place] [address] Performed By: #### 3 4528-0, 60115-3 #### [facility] CLIA [id number] [address] [place] [address] [place] MCH (RBC) [Entitic mass] 30.9 pg Normal 26.0-34.0 [facility] Comment on above: Order Comment: Speci men Type: BLOOD SPECIMEN Ordering Facility: [facility] Address: [address] [place], [place] [address] Performed By: #### 3 4528-0, 75578-8 #### [facility] CLIA [id number] [address] [place] [address] [place] MCHC (RBC) [Mass/Vol] 32.4 g/dL Normal 30.5-36.0 [facility] Comment on above: Order Comment: Speci men Type: BLOOD SPECIMEN Ordering Facility: [facility] Address: [address] [place] [address] Performed By: #### 3 4528-0, 99548-7 #### [facility] CLIA [id number] [address] [place] [address] [place] MCV (RBC) [Entitic vol] 95.2 fL Normal 80.0-100.0 [facility] Comment on above: Order Comment: Speci men Type: BLOOD SPECIMEN Ordering Facility: [facility] Address: [address] Performed By: #### 3 4528-0, 79604-0 #### [facility] CLIA [id number] [address] [place] [address] [place] Nucleated RBC (Bld) [#/Vol] 10*3/uL Normal <0.01 [facility] Comment on above: Order Comment: Speci men Type: BLOOD SPECIMEN Ordering Facility: [facility] Address: [address] Performed By: #### 3 4528-0, 21694-3 #### [facility] CLIA [id number] [address] [place] [address] [place] Platelet mean volume (Bld) [Entitic vol] 11.8 fL Normal 9.0-12.7 [facility] Comment on above: Order Comment: Speci men Type: BLOOD SPECIMEN Ordering Facility: [facility] Address: [address] [place] [address] Performed By: #### 3 4528-0, 16573-7 #### [facility] CLIA [id number] [address] [place] [address] [place] Platelets (Bld) [#/Vol] 190 10*3/uL Normal 150-400 [facility] Comment on above: Order Comment: Speci men Type: BLOOD SPECIMEN Ordering Facility: [facility] Address: [address] [place] [address] Performed By: #### 3 4528-0, 26841-2 #### [facility] CLIA [id number] [address] [place] [address] [place] RBC (Bld) [#/Vol] 4.60 10*6/uL Normal 4.20-6.00 [facility] Comment on above: Order Comment: Speci men Type: BLOOD SPECIMEN Ordering Facility: [facility] Address: [address] [place] [address] Performed By: #### 3 4528-0, 69303-5 #### [facility] CLIA [id number] [address] [place] [address] [place] WBC (Bld) [#/Vol] 15.28 10*3/uL High 3.70-11.00 [facility] Comment on above: Order Comment: Speci men Type: BLOOD SPECIMEN Ordering Facility: [facility] Address: [address] [place] [address] Performed By: #### 3 4528-0, 25981-8 #### [facility] CLIA [id number] [address] [place] [address] [place] CNDSon 06-21-2022 CNDS HNO ID: [id number] Author: Akil Garza PA-C Service: Hospital Medicine Author Type: Physician Physician Non Invasive Cardiologist Type: Discharge Summary Filed: 06/21/2022 1:17 PM Note Text: Attestation signed by Lina Ling MD at 06/21/2022 1:30 PM I have seen and evaluated the patient and discussed the case with the electronics processing supervisor . I agree with the assessment and [...] if he wants to travel to any [facility] site. 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 Number provided for him to make an [...] if he wants to establish care at [facility] since there is not a location close to his house. Hx of PAD with stents. Denies hx of [place]. Believes he was on statin in past and did not follow up. Started on atorvastatin. Instructed patient to follow up with both pulmonology and PCP as soon as possible. Number to scheduled with [facility] provided. OPERATIONS/PROCEDURE DURING THIS HOSPITALIZATION: * No surgery found * N/A CONSULTS DURING HOSPITALIZATION: Treatment Team: Attending Provider: Lina Ling MD Primary Service: [facility] 3 Physician Physician Non Invasive Cardiologist: Akil Garza PA-C No orders of the [...] UP APPOINT (more content not included)... Normal [facility] NURSING PROGon 06-21-2022 NURSING PROG HNO ID: [id number] Author: Pearl Hendrix RN Service: ? Author Type: Registered Nurse Type: Nursing Progress Note Filed: 06/21/2022 3:37 PM Note Text: Other: Discharge paperwork and medications explained. Patient stated he had no questions. IV removed. Transport placed for patient. Normal [facility] Bacteria Bld Culton 06-20-19 23 Bacteria identified Cx Nom (Bld) CULTURE, BLOOD: No growth 5 days Normal [facility] Comment on above: Performed By: #### 3 4528-0, 65276-3 #### [facility] CLIA [id number] [address] [place] [address] [place] Bacteria Spec Resp Culton Bacteria identified Respiratory culture Nom (Unsp spec) ORGANISM ID: 1 Rare Pseudomonas aeruginosa Insignificant colony count. No further workup. ORGANISM ID: 2 Moderate normal respiratory alexandru GRAM STAIN: Moderate Gram positive cocci Many Polymorphonuclear leukocytes Abnormal [facility] Comment on above: Performed By: #### 3 4528-0, 04273-2 #### [facility] CLIA [id number] [address] [place] [address] [place] CBC W Auto Differential pane l (Bld)on 06-20-2022 Basophils (Bld) [#/Vol] 0.07 10*3/uL Normal <0.11 [facility] Comment on above: Order Comment: Speci men Type: BLOOD SPECIMEN Ordering Facility: [facility] Address: [address] [address] Performed By: #### 5 7021-8 #### [facility] CLIA [id number] [address] [place] [address] [place] Basophils/100 WBC (Bld) 0.4 % Normal [facility] Comment on above: Order Comment: Speci men Type: BLOOD SPECIMEN Ordering Facility: [facility] Address: [address] Performed By: #### 5 7021-8 #### [facility] CLIA [id number] [address] [place] [address] [place] Differential cell count method Nom (Bld) Auto Normal [facility] Comment on above: Order Comment: Speci men Type: BLOOD SPECIMEN Ordering Facility: [facility] Address: [address] [address] Performed By: #### 5 7021-8 #### [facility] CLIA [id number] [address] [place] [address] [place] Eosinophils (Bld) [#/Vol] 10*3/uL Normal <0.46 [facility] Comment on above: Order Comment: Speci men Type: BLOOD SPECIMEN Ordering Facility: [facility] Address: [address] [place] [address] Performed By: #### 5 7021-8 #### [facility] CLIA [id number] [address] [place] [address] [place] Eosinophils/100 WBC (Bld) 0.1 % Normal [facility] Comment on above: Order Comment: Speci men Type: BLOOD SPECIMEN Ordering Facility: [facility] Address: [address] [place], [place] [address] Performed By: #### 5 7021-8 #### [facility] CLIA [id number] [address] [place] [address] [place] Erythrocyte distribution width (RBC) [Ratio] 13.5 % Normal 11.5-15.0 [facility] Comment on above: Order Comment: Speci men Type: BLOOD SPECIMEN Ordering Facility: [facility] Address: [address] [place], [place] [address] Performed By: #### 5 7021-8 #### [facility] CLIA [id number] [address] [place] [address] [place] Hematocrit (Bld) [Volume fraction] 52.4 % High 39.0-51.0 [facility] Comment on above: Order Comment: Speci men Type: BLOOD SPECIMEN Ordering Facility: [facility] Address: [address] Performed By: #### 5 7021-8 #### [facility] CLIA [id number] [address] [place] [address] [place] Hemoglobin (Bld) [Mass/Vol] 17.2 g/dL High 13.0-17.0 [facility] Comment on above: Order Comment: Speci men Type: BLOOD SPECIMEN Ordering Facility: [facility] Address: [address] Performed By: #### 5 7021-8 #### [facility] CLIA [id number] [address] [place] [address] [place] Immature granulocytes (Bld) [#/Vol] 0.19 10*3/uL High <0.10 [facility] Comment on above: Order Comment: Speci men Type: BLOOD SPECIMEN Ordering Facility: [facility] Address: [address] Performed By: #### 5 7021-8 #### [facility] CLIA [id number] [address] [place] [address] [place] Immature granulocytes/100 WBC (Bld) 1.0 % Normal [facility] Comment on above: Order Comment: Speci men Type: BLOOD SPECIMEN Ordering Facility: [facility] Address: [address] [place] [address] Performed By: #### 5 7021-8 #### [facility] CLIA [id number] [address] [place] [address] [place] Lymphocytes (Bld) [#/Vol] 1.30 10*3/uL Normal 1.00-4.00 [facility] Comment on above: Order Comment: Speci men Type: BLOOD SPECIMEN Ordering Facility: [facility] Address: [address] [place] [address] Performed By: #### 5 7021-8 #### [facility] CLIA [id number] [address] [place] [address] [place] Lymphocytes/100 WBC (Bld) 7.0 % Normal [facility] Comment on above: Order Comment: Speci men Type: BLOOD SPECIMEN Ordering Facility: [facility] Address: [address] [place] [address] Performed By: #### 5 7021-8 #### [facility] CLIA [id number] [address] [place] [address] [place] MCH (RBC) [Entitic mass] 31.0 pg Normal 26.0-34.0 [facility] Comment on above: Order Comment: Speci men Type: BLOOD SPECIMEN Ordering Facility: [facility] Address: [address] [place], [place] [address] Performed By: #### 5 7021-8 #### [facility] CLIA [id number] [address] [place] [address] [place] MCHC (RBC) [Mass/Vol] 32.8 g/dL Normal 30.5-36.0 [facility] Comment on above: Order Comment: Speci men Type: BLOOD SPECIMEN Ordering Facility: [facility] Address: [address] [place], [place] [address] Performed By: #### 5 7021-8 #### [facility] CLIA [id number] [address] [place] [address] [place] MCV (RBC) [Entitic vol] 94.4 fL Normal 80.0-100.0 [facility] Comment on above: Order Comment: Speci men Type: BLOOD SPECIMEN Ordering Facility: [facility] Address: [address] [place] [address] Performed By: #### 5 7021-8 #### [facility] CLIA [id number] [address] [place] [address] [place] Monocytes (Bld) [#/Vol] 0.56 10*3/uL Normal <0.87 [facility] Comment on above: Order Comment: Speci men Type: BLOOD SPECIMEN Ordering Facility: [facility] Address: [address] [place] [address] Performed By: #### 5 7021-8 #### [facility] CLIA [id number] [address] [place] [address] [place] Monocytes/100 WBC (Bld) 3.0 % Normal [facility] Comment on above: Order Comment: Speci men Type: BLOOD SPECIMEN Ordering Facility: [facility] Address: [address] Performed By: #### 5 7021-8 #### [facility] CLIA [id number] [address] [place] [address] [place] Neutrophils (Bld) [#/Vol] 16.47 10*3/uL High 1.45-7.50 [facility] Comment on above: Order Comment: Speci men Type: BLOOD SPECIMEN Ordering Facility: [facility] Address: [address] [place] [address] Performed By: #### 5 7021-8 #### [facility] CLIA [id number] [address] [place] [address] [place] Neutrophils/100 WBC (Bld) 88.5 % Normal [facility] Comment on above: Order Comment: Speci men Type: BLOOD SPECIMEN Ordering Facility: [facility] Address: [address] [place] [address] Performed By: #### 5 7021-8 #### [facility] CLIA [id number] [address] [place] [address] [place] Nucleated RBC (Bld) [#/Vol] 10*3/uL Normal <0.01 [facility] Comment on above: Order Comment: Speci men Type: BLOOD SPECIMEN Ordering Facility: [facility] Address: [address] [place] [address] Performed By: #### 5 7021-8 #### [facility] CLIA [id number] [address] [place] [address] [place] Nucleated RBC/100 WBC (Bld) [Ratio] 0.0 /100 WBC Normal [facility] Comment on above: Order Comment: Speci men Type: BLOOD SPECIMEN Ordering Facility: [facility] Address: [address] Performed By: #### 5 7021-8 #### [facility] CLIA [id number] [address] [place] [address] [place] Platelet mean volume (Bld) [Entitic vol] 11.3 fL Normal 9.0-12.7 [facility] Comment on above: Order Comment: Speci men Type: BLOOD SPECIMEN Ordering Facility: [facility] Address: [address] Performed By: #### 5 7021-8 #### [facility] CLIA [id number] [address] [place] [address] [place] Platelets (Bld) [#/Vol] 241 10*3/uL Normal 150-400 [facility] Comment on above: Order Comment: Speci men Type: BLOOD SPECIMEN Ordering Facility: [facility] Address: [address] [place] [address] Performed By: #### 5 7021-8 #### [facility] CLIA [id number] [address] [place] [address] [place] RBC (Bld) [#/Vol] 5.55 10*6/uL Normal 4.20-6.00 [facility] Comment on above: Order Comment: Speci men Type: BLOOD SPECIMEN Ordering Facility: [facility] Address: [address] Performed By: #### 5 7021-8 #### [facility] CLIA [id number] [address] [place] [address] [place] WBC (Bld) [#/Vol] 18.61 10*3/uL High 3.70-11.00 [facility] Comment on above: Order Comment: Speci men Type: BLOOD SPECIMEN Ordering Facility: [facility] Address: [address] [place] [address] Performed By: #### 5 7021-8 #### [facility] CLIA [id number] [address] [place] [address] [place] Comprehensive metabolic 2000 panelon 06-20-2022 Albumin [Mass/Vol] 4.0 g/dL Normal 3.9-4.9 [facility] Comment on above: Order Comment: Speci men Type: BLOOD SPECIMEN Ordering Facility: [facility] Address: [address] [place] [address] Performed By: #### 3 4528-0, 08315-1 #### [facility] CLIA [id number] [address] [place] [address] [place] ALP [Catalytic activity/Vol] 90 U/L Normal 38-113 [facility] Comment on above: Order Comment: Speci men Type: BLOOD SPECIMEN Ordering Facility: [facility] Address: [address] [place], [place] [address] Performed By: #### 3 4528-0, 97687-6 #### [facility] CLIA [id number] [address] [place] [address] [place] ALT [Catalytic activity/Vol] 36 U/L Normal 10-54 [facility] Comment on above: Order Comment: Speci men Type: BLOOD SPECIMEN Ordering Facility: [facility] Address: [address] [place], [place] [address] Performed By: #### 3 4528-0, 93502-3 #### [facility] CLIA [id number] [facility] [place] [address] [place] Anion gap [Moles/Vol] 10 mmol/L Normal 9-18 [facility] Comment on above: Order Comment: Speci men Type: BLOOD SPECIMEN Ordering Facility: [facility] Address: [address] [place] [address] Performed By: #### 3 4528-0, 53145-9 #### [facility] CLIA [id number] [address] [place] [address] [place] AST [Catalytic activity/Vol] 20 U/L Normal 14-40 [facility] Comment on above: Order Comment: Speci men Type: BLOOD SPECIMEN Ordering Facility: [facility] Address: [address] Performed By: #### 3 4528-0, 93952-0 #### [facility] CLIA [id number] [address] [place] [address] [place] Bilirubin [Mass/Vol] 0.6 mg/dL Normal 0.2-1.3 [facility] Comment on above: Order Comment: Speci men Type: BLOOD SPECIMEN Ordering Facility: [facility] Address: [address] Performed By: #### 3 4528-0, 34342-2 #### [facility] CLIA [id number] [address] [place] [address] [place] Calcium [Mass/Vol] 9.2 mg/dL Normal 8.5-10.2 [facility] Comment on above: Order Comment: Speci men Type: BLOOD SPECIMEN Ordering Facility: [facility] Address: [address] Performed By: #### 3 4528-0, 69247-0 #### [facility] CLIA [id number] [address] [place] [address] [place] Chloride [Moles/Vol] 101 mmol/L Normal 97-105 [facility] Comment on above: Order Comment: Speci men Type: BLOOD SPECIMEN Ordering Facility: [facility] Address: [address] [address] Performed By: #### 3 4528-0, 55357-4 #### [facility] CLIA [id number] [address] [place] [address] [place] CO2 [Moles/Vol] 30 mmol/L Normal 22-30 [facility] Comment on above: Order Comment: Speci men Type: BLOOD SPECIMEN Ordering Facility: [facility] Address: [address] [place] [address] Performed By: #### 3 4528-0, 14466-9 #### [facility] CLIA [id number] [address] [place] [address] OF [facility] Creatinine [Mass/Vol] 0.99 mg/dL Normal 0.73-1.22 [facility] Comment on above: Order Comment: Speci men Type: BLOOD SPECIMEN Ordering Facility: [facility] Address: [address] [place] [address] Performed By: #### 3 4528-0, 31703-1 #### [facility] CLIA [id number] [address] [place] [address] ESTIMATED GLOMERULAR FILTRATION RATE 84 mL/min/1.73m??? Normal >=60 [facility] Comment on above: Order Comment: Speci men Type: BLOOD SPECIMEN Ordering Facility: [facility] Address: [address] [place] [address] Result Comment: [place] mated Glomerular Filtration Rate [...] actual GFR. Performed By: #### 3 4528-0, 80815-8 #### [facility] CLIA [id number] [address] [place] [address] [place] Glucose [Mass/Vol] 164 mg/dL High 74-99 [facility] Comment on above: Order Comment: Specteresa men Type: BLOOD SPECIMEN Ordering Facility: [facility] Address: [address] [place] [address] Result Comment: The [place] [employer] (ADA) provides guidance for cutoff [...] Standards of Medical Care in Diabetes 2016, [place] [employer]. Diabetes Care. 2016.39(Suppl 1). Performed By: #### 3 4528-0, 57350-4 #### [facility] CLIA [id number] [address] [place] [address] [place] Potassium [Moles/Vol] 4.9 mmol/L Normal 3.7-5.1 [facility] Comment on above: Order Comment: Leighann suazo Type: BLOOD SPECIMEN Ordering Facility: [facility] Address: [address] [place], [place] [address] Performed By: #### 3 4528-0, 13656-1 #### [facility] CLIA [id number] [address] [place] [address] [place] Protein [Mass/Vol] 7.3 g/dL Normal 6.3-8.0 [facility] Comment on above: Order Comment: Leighann suazo Type: BLOOD SPECIMEN Ordering Facility: [facility] Address: [address] [place] [address] Performed By: #### 3 4528-0, 70474-0 #### [facility] CLIA [id number] [address] [place] [address] [place] Sodium [Moles/Vol] 141 mmol/L Normal 136-144 [facility] Comment on above: Order Comment: Speci men Type: BLOOD SPECIMEN Ordering Facility: [facility] Address: [address] [place] [address] Performed By: #### 3 4528-0, 70358-7 #### [facility] CLIA [id number] [address] [place] [address] [place] Urea nitrogen [Mass/Vol] 23 mg/dL Normal 9-24 [facility] Comment on above: Order Comment: Speci men Type: BLOOD SPECIMEN Ordering Facility: [facility] Address: [address] [place] [address] Performed By: #### 3 4528-0, 38664-9 #### [facility] CLIA [id number] [address] [place] [address] ED NOTEon 06-20-2022 ED NOTE HNO ID: [id number] Author: Mamie Lao RN Service: ? Author Type: Registered Nurse Type: ED Notes Filed: 06/20/2022 4:37 PM Note Text: Bed: -04 Expected date: Expected time: Means of arrival: Comments: Normal [facility] ED NOTE HNO ID: [id number] Author: Mamie Lao RN Service: Emergency Medicine [...] checks completed, call light in reach. Normal [facility] ED NOTE HNO ID: [id number] Author: Mamie Lao RN Service: Emergency Medicine Author Type: Registered Nurse Type: ED Notes Filed: 06/20/2022 3:13 PM Note Text: Report from JACQUELINE Evans. Normal [facility] ED NOTE HNO ID: [id number] Author: Priyanka Hammond Service: Emergency Medicine Author Type: [employer] Specialist Type: ED Notes Filed: 06/20/2022 12:55 PM Note Text: RT to bedside. Pt placed on Zoll as precaution due to HR above 130 BPM sustained Normal [facility] ED PROV NOTEon 06-20-2022 ED PROV NOTE HNO ID: [id number] Author: Lillian Maxwell MD Service: Emergency Medicine [...] discomfort. Patient had been seeing doctors at [place] and [facility] without any significant improvement of his [...] diarrhea. History provided by: Spouse and patient fisher sponge hooking used: No No past medical history on [...] DANIA H (more content not included)... Normal [facility] FLUABV+SARS-CoV-2+RSV Pnl Re sp ANGELA+probeon 06-20-2022 FLUABV+SARS-CoV-2+RSV Pnl Resp ANGELA+probe COVID 19 RESULT: Not detected The method used is RT-PCR or an equivalent NAAT method. Reference Range(the expected result in uninfected individuals): Not detected INFLUENZA A PCR: Not detected INFLUENZA B PCR: Not detected RSV PCR: Not detected Normal [facility] Comment on above: Performed By: #### 3 4528-0, 77113-6 #### [facility] CLIA [id number] [address] [facility] [address] [place] HIGH SENSITIVITY TROPONIN T (INITIAL)on 06-20-2022 HIGH SENSITIVITY DANIA 14 ng/L High <12 [facility] Comment on above: Order Comment: Speci men Type: BLOOD SPECIMEN Ordering Facility: [facility] Address: [address] [place], [place] [address] Result Comment: When assessing risk for acute [...] day MACE. Performed By: #### 3 4528-0, 90808-8 #### [facility] CLIA [id number] [facility] [address] [place] HIGH SENSITIVITY TROPONIN T (SECOND)on 06-20-2022 HIGH SENSITIVITY DANIA 13 ng/L High <12 [facility] Comment on above: Order Comment: Leighann suazo Type: BLOOD SPECIMEN Ordering Facility: [facility] Address: [address] [place] [address] Result Comment: When assessing risk for acute [...] 30 day MACE. Performed By: #### L [id number] #### [facility] CLIA [id number] [address] [place] [address] [place] HIGH SENSITIVITY TROPONIN T (THIRD) 3 HRS AFTER INITIALon 06-20-2022 HIGH SENSITIVITY DANIA 12 ng/L High <12 [facility] Comment on above: Order Comment: Leighann suazo Type: BLOOD SPECIMEN Ordering Facility: [facility] Address: [address] [place] [address] Result Comment: When assessing risk for acute [...] day MACE. Performed By: #### 3 4528-0, 04231-1 #### [facility] CLIA [id number] [address] [facility] [place] [place] [address] [place] HISTORY PHYSICALon HISTORY PHYSICAL HNO ID: [id number] Author: Davy De Souza MD Service: Hospital [...] He was admitted to the hospital in [place] and treated for COPD exacerbation and pneumonia [...] within normal limits Narrative: Meter ID:ED Location:ED [facility], [address] [place] [address], [facility] HIGH SENSITIVITY TROPONIN T (THIRD) 3 HRS [...] laboratory APTT reagent in use throughout the [facility]. PROTHROMBIN TIME/PT - Normal EXPEDITED COVID, FLU A/B + RSV - Normal Narrative: This test has been authorized by FDA under an Emergency Use Authorization (EUA). Test performed by [facility], [facility] [place], [address] [place] [address]. LACTATE - ED (POC) ARTERIAL BLOOD GAS [...] for c (more content not included)... Normal [facility] Magnesium [facility] 06-20 Magnesium [Mass/Vol] 2.2 mg/dL Normal 1.7-2.3 [facility] Comment on above: Order Comment: Speci lakeisha Type: BLOOD SPECIMEN Ordering Facility: [facility] Address: [address] [place] [address] Performed By: #### 3 4528-0, 79729-7 #### [facility] CLIA [id number] [address] [place] [address] [place] NT-proBNP [facility] 06-20 Natriuretic peptide.B prohormone N-Terminal [Mass/Vol] 124 pg/mL Normal <125 [facility] Comment on above: Order Comment: Leighann suazo Type: BLOOD SPECIMEN Ordering Facility: [facility] Address: [address] [place] [address] Performed By: #### 3 4528-0, 19494-3 #### [facility] CLIA [id number] [address] [place] [address] [place] PT panel Coag (PPP)on 2022 INR Coag (PPP) [Relative time] 1.0 {INR} Normal 0.9-1.3 [facility] Comment on above: Order Comment: Leighann suazo Type: BLOOD SPECIMEN Ordering Facility: [facility] Address: [address] [place], [place] [address] Result Comment: Trisha min K Antagonist (VKA) Therapeutic Range: INR 2 to 3 (Target INR of 2.5) Note: For patients treated with VKA drugs, such as warfarin, the [place] [employer] 2012 Guideline recommends [...] to 3.5 (target INR of 3). Mike CORBETT, et al. Chest 2012, 141:7S-47S Bishop HOLDEN et al. ALLINA [facility] 2017, 70: [phone] Performed By: #### 3 4528-0, 64800-4 #### [facility] [place] [id number] [address] [place] [address] [place] PT Coag (PPP) [Time] 10.3 s Normal 9.7-13.0 [facility] Comment on above: Order Comment: Speci men Type: BLOOD SPECIMEN Ordering Facility: [facility] Address: [address] [place] [address] Performed By: #### 3 4528-0, 67524-1 #### [facility] IA [id number] [facility] [place] [id number] [place] XR CHEST 1V [...] acute bony abnormalities. IMPRESSION: No acute findings. Risk And Insurance Consultant: JW Transcribe Date/Time: Jun 20 2022 1:17P Dictated by : TANA GUERRA MD This examination was interpreted and the report reviewed and electronically signed by: TANA GUERRA MD on Jun 20 2022 1:19PM EST [id number] CN Normal [facility] aPTT PPPon 06-20-2022 aPTT Coag (PPP) [Time] 23.4 s Normal 23.0-32.4 [facility] Comment on above: Order Comment: Speci men Type: BLOOD SPECIMEN Ordering Facility: [facility] Address: [address] [place] [address] Performed By: #### 3 4528-0, 35886-7 #### [facility] CLIA [id number] [address] [place] [address] OF [facility] CBC AUTO DIFFon 06-09-2022 BASO # 0.0 103/ul Normal 0.0-0.1 [facility] Comment on above: Performed By: #### C BC #### [facility] [address] [place] [address] Dr. Jossy Porras Basophils/100 WBC (Bld) 0.1 % Critically low 0.2-2.0 [facility] Comment on above: Performed By: #### C BC #### [facility] [address] [place] [address] Dr. Jossy Porras EO # 0.0 103/ul Normal 0.0-0.7 [facility] Comment on above: Performed By: #### C BC #### [facility] [address] [place] [address] Dr. Jossy Porras Eosinophils/100 WBC (Bld) 0.1 % Critically low 0.9-7.0 [facility] Comment on above: Performed By: #### C BC #### [facility] [address] [address] [address] Jossy Porras Erythrocyte distribution width (RBC) [Ratio] 13.4 % Normal 11.0-15.0 [facility] Comment on above: Performed By: #### C BC #### [facility] [address] [place] [address] Dr. Jossy Porras Hematocrit (Bld) [Volume fraction] 43.9 % Normal 42.0-54.0 [facility] Comment on above: Performed By: #### C BC #### [facility] [address] [place] [address] Dr. Jossy Porras Hemoglobin (Bld) [Mass/Vol] 13.9 g/dL Critically low 14.0-18.0 [facility] Comment on above: Performed By: #### C BC #### [facility] [address] [place] [address] Dr. Jossy Porras IG # 0.10 10e3/ul Critically high 0.00-0.03 [facility] Comment on above: Performed By: #### C BC #### [facility] [address] [place] [address] Dr. Jossy Porras IG % 0.7 % Critically high 0.0-0.5 [facility] Comment on above: Performed By: #### C BC #### [facility] [address] [place] [address] Dr. Jossy Porras LYMPH # 0.8 103/ul Critically low 1.2-3.8 [facility] Comment on above: Performed By: #### C BC #### [facility] [address] [place] [address] Dr. Jossy Porras Lymphocytes/100 WBC (Bld) 5.4 % Critically low 20.5-60.0 [facility] Comment on above: Performed By: #### C BC #### [facility] [address] [place] [address] Dr. Jossy Porras MANUAL DIFF REQ NO Normal [facility] Comment on above: Performed By: #### C BC #### [facility] [address] [address] [address] Jossy Porras MCH (RBC) [Entitic mass] 31.0 pg Normal 25.9-34.0 [facility] Comment on above: Performed By: #### C BC #### [facility] [address] [address] [address] Jossy Porras MCHC (RBC) [Mass/Vol] 31.7 g/dL Normal 29.9-35.2 [facility] Comment on above: Performed By: #### C BC #### [facility] [address] [address] [address] Jossy Porras MCV (RBC) [Entitic vol] 97.8 fL Critically high 80.0-94.0 [facility] Comment on above: Performed By: #### C BC #### [facility] [address] [place] [address] Dr. Jossy Porras MONO # 0.4 103/ul Normal 0.3-0.8 [facility] Comment on above: Performed By: #### C BC #### [facility] [address] [place] [address] Dr. Jossy Porras Monocytes/100 WBC (Bld) 2.6 % Normal 1.7-12.0 [facility] Comment on above: Performed By: #### C BC #### [facility] [address] [place] [address] Dr. Jossy Porras NEUT # 14.0 103/ul Critically high 1.4-6.5 [facility] Comment on above: Performed By: #### C BC #### [facility] [address] [place] [address] Dr. oJssy Porras Neutrophils/100 WBC (Bld) 91.1 % Critically high 43.0-75.0 [facility] Comment on above: Performed By: #### C BC #### [facility] [address] [place] [address] Dr. Jossy Porras Platelet mean volume (Bld) [Entitic vol] 12.4 fL Normal 9.5-13.5 [facility] Comment on above: Performed By: #### C BC #### [facility] [address] [place] [address] Dr. Jossy Porras PLT 159 103/ul Normal 150-450 [facility] Comment on above: Performed By: #### C BC #### [facility] [address] [place] [address] Dr. Jossy Porras RBC 4.49 106/ul Critically low 4.70-6.10 [facility] Comment on above: Performed By: #### C BC #### [facility] [address] [place] [address] Dr. Jossy Porras WBC 15.3 103/ul Critically high 4.0-11.0 [facility] Comment on above: Performed By: #### C BC #### [facility] [address] [place] [address] Dr. Jossy Porras PROF 14(COMP METB)on 023 Albumin [Mass/Vol] 2.9 g/dL Critically low 3.4-5.0 [facility] Comment on above: Performed By: #### C BC #### [facility] [address] [place] [address] Dr. Jossy Porras Albumin/Globulin [Mass ratio] 1.0 {ratio} Normal [facility] Comment on above: Performed By: #### C BC #### [facility] [address] [place] [address] Dr. Jossy Porras ALP [Catalytic activity/Vol] 75 U/L Normal 46-116 [facility] Comment on above: Performed By: #### C BC #### [facility] [address] [place] [address] Dr. Jossy Porras ALT [Catalytic activity/Vol] 37 U/L Normal 16-63 [facility] Comment on above: Performed By: #### C BC #### [facility] [address] [place] [address] Dr. Jossy Porras Anion gap [Moles/Vol] 10.8 mmol/L Normal [facility] Comment on above: Performed By: #### C BC #### [facility] [address] [address] [address] Jossy Porras AST [Catalytic activity/Vol] 17 U/L Normal 15-37 [facility] Comment on above: Performed By: #### C BC #### [facility] [address] [address] [address] Jossy Porras Bilirubin [Mass/Vol] 0.3 mg/dL Normal 0.2-1.0 [facility] Comment on above: Performed By: #### C BC #### [facility] [address] [address] [address] Jossy Porras Calcium [Mass/Vol] 8.6 mg/dL Normal 8.5-10.1 [facility] Comment on above: Performed By: #### C BC #### [facility] [address] [place] [address] Dr. Jossy Porras Chloride [Moles/Vol] 101 mmol/L Normal 98-107 [facility] Comment on above: Performed By: #### C BC #### [facility] [address] [address] [address] Jossy Porras CO2 [Moles/Vol] 30.7 mmol/L Normal 21.0-32.0 [facility] Comment on above: Performed By: #### C BC #### [facility] [address] [place] [address] Dr. Jossy Porras Creatinine [Mass/Vol] 0.92 mg/dL Normal 0.70-1.30 [facility] Comment on above: Performed By: #### C BC #### [facility] [address] [place] [address] Dr. Jossy Porras EGFR-AF KU[place]I >60 Normal >=60 [facility] Comment on above: Performed By: #### C BC #### [facility] [address] [place] [address] Dr. Jossy Porras EGFR-NON AF [place]I >60 Normal >=60 [facility] Comment on above: Performed By: #### C BC #### [facility] [address] [place] [address] Dr. Jossy Porras Globulin (S) [Mass/Vol] 3.0 g/dL Normal [facility] Comment on above: Performed By: #### C BC #### [facility] [address] [place] [address] [address] Jossy Porras Glucose [Mass/Vol] 144 mg/dL Critically high 74-106 T [facility] Comment on above: Performed By: #### C BC #### [facility] [address] [place] [address] [address] Jossy Porras Potassium [Moles/Vol] 4.5 mmol/L Normal 3.5-5.1 [facility] Comment on above: Performed By: #### C BC #### [facility] [address] [place] [address] Dr. Jossy Porras Protein [Mass/Vol] 5.9 g/dL Critically low 6.4-8.2 [facility] Comment on above: Performed By: #### C BC #### [facility] [address] [place] [address] Dr. Jossy Porras Sodium [Moles/Vol] 138 mmol/L Normal 136-145 [facility] Comment on above: Performed By: #### C BC #### [facility] [address] [place] [address] Dr. Jossy Porras Urea nitrogen [Mass/Vol] 19.0 mg/dL Critically high 7.0-18.0 [facility] Comment on above: Performed By: #### C BC #### [facility] [address] [place] [address] Dr. Jossy Porras Urea nitrogen/Creatinine [Mass ratio] 20.7 mg/mg Normal [facility] Comment on above: Performed By: #### C BC #### [facility] [address] [place] [address] Dr. Jossy Porras CBC AUTO DIFFon 06-08-2022 BASO # 0.0 103/ul Normal 0.0-0.1 [facility] Comment on above: Performed By: #### C BC ####[facility] [address] [place] [address]Dr. Jossy Porras Basophils/100 WBC (Bld) 0.1 % Critically low 0.2-2.0 [facility] Comment on above: Performed By: #### C BC ####[facility] [address] [place] [address]Dr. Jossy Porras EO # 0.0 103/ul Normal 0.0-0.7 [facility] Comment on above: Performed By: #### C BC ####[facility] [address] [place] [address]Dr. Jossy Porras Eosinophils/100 WBC (Bld) 0.0 % Critically low 0.9-7.0 [facility] Comment on above: Performed By: #### C BC ####[facility] [address] [place], [place] [address]Dr. Jossy Porras Erythrocyte distribution width (RBC) [Ratio] 13.2 % Normal 11.0-15.0 [facility] Comment on above: Performed By: #### C BC ####[facility] [address] [place], [place] [address]Dr. Jossy Porras Hematocrit (Bld) [Volume fraction] 46.4 % Normal 42.0-54.0 [facility] Comment on above: Performed By: #### C BC ####[facility] [address] [place], [place] [address]Dr. Jossy Porras Hemoglobin (Bld) [Mass/Vol] 14.2 g/dL Normal 14.0-18.0 [facility] Comment on above: Performed By: #### C BC ####[facility] [address] [place], [place] [address]Dr. Jossy Porras IG # 0.04 10e3/ul Critically high 0.00-0.03 [facility] Comment on above: Performed By: #### C BC ####[facility] [address] [place], [place] [address]Dr. Jossy Porras IG % 0.5 % Normal 0.0-0.5 [facility] Comment on above: Performed By: #### C BC ####[facility] [address] [place] [address]Dr. Jossy Porras LYMPH # 0.6 103/ul Critically low 1.2-3.8 [facility] Comment on above: Performed By: #### C BC ####[facility] [address] [place] [address]Dr. Jossy Porras Lymphocytes/100 WBC (Bld) 7.3 % Critically low 20.5-60.0 [facility] Comment on above: Performed By: #### C BC ####[facility] [address] [place] [address]Dr. Jossy Porras MANUAL DIFF REQ NO Normal [facility] Comment on above: Performed By: #### C BC ####[facility] [address] [place], [place] [address]Dr. Jossy Porras MCH (RBC) [Entitic mass] 30.4 pg Normal 25.9-34.0 [facility] Comment on above: Performed By: #### C BC ####[facility] [address] [place], [place] [address]Dr. Jossy Porras MCHC (RBC) [Mass/Vol] 30.6 g/dL Normal 29.9-35.2 [facility] Comment on above: Performed By: #### C BC ####[facility] [address] [place], [place] [address]Dr. Jossy Porras MCV (RBC) [Entitic vol] 99.4 fL Critically high 80.0-94.0 [facility] Comment on above: Performed By: #### C BC ####[facility] [address] [place], [place] [address]Dr. Jossy Porras MONO # 0.1 103/ul Critically low 0.3-0.8 [facility] Comment on above: Performed By: #### C BC ####[facility] [address] [place], [place] [address]Dr. Jossy Porras Monocytes/100 WBC (Bld) 1.4 % Critically low 1.7-12.0 [facility] Comment on above: Performed By: #### C BC ####[facility] [address] [place] [address]Dr. Jossy Porras NEUT # 7.1 103/ul Critically high 1.4-6.5 [facility] Comment on above: Performed By: #### C BC ####[facility] [address] [place] [address]Dr. Jossy Porras Neutrophils/100 WBC (Bld) 90.7 % Critically high 43.0-75.0 [facility] Comment on above: Performed By: #### C BC ####[facility] [address] [place] [address]Dr. Jossy Porras Platelet mean volume (Bld) [Entitic vol] 11.9 fL Normal 9.5-13.5 [facility] Comment on above: Performed By: #### C BC ####[facility] [address] [place] [address]Dr. Jossy Porras PLT 156 103/ul Normal 150-450 [facility] Comment on above: Performed By: #### C BC ####[facility] [address] [place] [address]Dr. Jossy Porras RBC 4.67 106/ul Critically low 4.70-6.10 [facility] Comment on above: Performed By: #### C BC ####[facility] [address] [place] [address]Dr. Jossy Porras WBC 7.8 103/ul Normal 4.0-11.0 [facility] Comment on above: Performed By: #### C BC ####[facility] [address] [place], [place] [address]Dr. Jossy Porras CT CHEST WO CONon 06-08-2022 [...] by: MARIBETH CEDILLO Date: 2022-06-08 10:52 Normal [facility] PROF 14(COMP METB)on 023 Albumin [Mass/Vol] 3.0 g/dL Critically low 3.4-5.0 [facility] Comment on above: Performed By: #### C VDTBH #### [facility] [address] [place] [address] Dr. Jossy Porras Albumin/Globulin [Mass ratio] 0.9 {ratio} Normal [facility] Comment on above: Performed By: #### C VDTBH #### [facility] [address] [place] [address] Dr. Jossy Porras ALP [Catalytic activity/Vol] 84 U/L Normal 46-116 [facility] Comment on above: Performed By: #### C VDTBH #### [facility] [address] [place] [address] Dr. Jossy Porras ALT [Catalytic activity/Vol] 40 U/L Normal 16-63 [facility] Comment on above: Performed By: #### C VDTBH #### [facility] [address] [place] [address] Dr. Jossy Porras Anion gap [Moles/Vol] 13.8 mmol/L Normal [facility] Comment on above: Performed By: #### C VDTBH #### [facility] [address] [place] [address] Dr. Jossy Porras AST [Catalytic activity/Vol] 30 U/L Normal 15-37 [facility] Comment on above: Performed By: #### C VDTBH #### [facility] [address] [place], [place] [id number] Dr. Jossy Porras Bilirubin [Mass/Vol] 0.5 mg/dL Normal 0.2-1.0 [facility] Comment on above: Performed By: #### C VDTBH #### [facility] [address] [place] [address] Dr. Jossy Porras Calcium [Mass/Vol] 8.6 mg/dL Normal 8.5-10.1 [facility] Comment on above: Performed By: #### C VDTBH #### [facility] [address] [place] [address] Dr. Jossy Porras Chloride [Moles/Vol] 103 mmol/L Normal 98-107 [facility] Comment on above: Performed By: #### C VDTBH #### [facility] [address] [place] [address] Dr. Jossy Porras CO2 [Moles/Vol] 28.0 mmol/L Normal 21.0-32.0 [facility] Comment on above: Performed By: #### C VDTBH #### [facility] [address] [place] [address] Dr. Jossy Porras Creatinine [Mass/Vol] 1.06 mg/dL Normal 0.70-1.30 [facility] Comment on above: Performed By: #### C VDTBH #### [facility] [address] [place] [address] Dr. Jossy Porras EGFR-AF [place] >60 Normal >=60 [facility] Comment on above: Performed By: #### C VDTBH #### [facility] [address] [place] [address] Dr. Jossy Porras EGFR-NON AF [place] >60 Normal >=60 [facility] Comment on above: Performed By: #### C VDTBH #### [facility] [address] [place] [address] Dr. Jossy Porras Globulin (S) [Mass/Vol] 3.5 g/dL Normal [facility] Comment on above: Performed By: #### C VDTBH #### [facility] [address] [place] [address] Dr. Jossy Porras Glucose [Mass/Vol] 137 mg/dL Critically high 74-106 T [facility] Comment on above: Performed By: #### C VDTBH #### [facility] [address] [address] [address] Jossy Porras Potassium [Moles/Vol] 4.8 mmol/L Normal 3.5-5.1 [facility] Comment on above: Performed By: #### C VDTBH #### [facility] [address] [address] [address] Jossy Porras Protein [Mass/Vol] 6.5 g/dL Normal 6.4-8.2 [facility] Comment on above: Performed By: #### C VDTBH #### [facility] [address] [place] [address] Dr. Jossy Porras Sodium [Moles/Vol] 140 mmol/L Normal 136-145 [facility] Comment on above: Performed By: #### C VDTBH #### [facility] [address] [place] [address] Dr. Jossy Porras Urea nitrogen [Mass/Vol] 14.0 mg/dL Normal 7.0-18.0 [facility] Comment on above: Performed By: #### C VDTBH #### [facility] [address] [place] [address] Dr. Jossy Porras Urea nitrogen/Creatinine [Mass ratio] 13.2 mg/mg Normal [facility] Comment on above: Performed By: #### C VDTBH #### [facility] [address] [place] [address] Dr. Jossy Porras BNPon 06-07-2022 Natriuretic peptide B (Bld) [Mass/Vol] 82.0 pg/mL Normal <=900.0 [facility] Comment on above: Performed By: #### C MP, BNP, HSTROPN ####[facility] [address] [address]Dr. Jossy Porras CBC AUTO DIFFon 06-07-2022 BASO # 0.1 103/ul Normal 0.0-0.1 [facility] Comment on above: Performed By: #### C BC ####[facility] [address] [address]Dr. Jossy Porras Basophils/100 WBC (Bld) 0.6 % Normal 0.2-2.0 [facility] Comment on above: Performed By: #### C BC ####[facility] [address] [address]Dr. Jossy Porras EO # 0.1 103/ul Normal 0.0-0.7 [facility] Comment on above: Performed By: #### C BC ####[facility] [address] [address]Dr. Jossy Porras Eosinophils/100 WBC (Bld) 1.5 % Normal 0.9-7.0 [facility] Comment on above: Performed By: #### C BC ####[facility] [address] [place], [place] [address]Dr. Jossy Porras Erythrocyte distribution width (RBC) [Ratio] 13.4 % Normal 11.0-15.0 [facility] Comment on above: Performed By: #### C BC ####[facility] [address] [place], [place] [address]Dr. Jossy Porras Hematocrit (Bld) [Volume fraction] 53.2 % Normal 42.0-54.0 [facility] Comment on above: Performed By: #### C BC ####[facility] [address] [place], [place] [address]Dr. Jossy Porras Hemoglobin (Bld) [Mass/Vol] 16.4 g/dL Normal 14.0-18.0 [facility] Comment on above: Performed By: #### C BC ####[facility] [address] [place], [place] [address]Dr. Jossy Porras IG # 0.03 10e3/ul Normal 0.00-0.03 [facility] Comment on above: Performed By: #### C BC ####[facility] [address] [place], [place] [address]Dr. Jossy Porras IG % 0.3 % Normal 0.0-0.5 [facility] Comment on above: Performed By: #### C BC ####[facility] [address] [address]Dr. Jossy Vern LYMPH # 2.8 103/ul Normal 1.2-3.8 [facility] Comment on above: Performed By: #### C BC ####[facility] [address] [address]Dr. Jossy Porras Lymphocytes/100 WBC (Bld) 31.3 % Normal 20.5-60.0 [facility] Comment on above: Performed By: #### C BC ####[facility] [address] [address]Dr. Jossy Porras MANUAL DIFF REQ NO Normal [facility] Comment on above: Performed By: #### C BC ####[facility] [address] [address]Dr. Jossy Porras MCH (RBC) [Entitic mass] 30.7 pg Normal 25.9-34.0 [facility] Comment on above: Performed By: #### C BC ####[facility] [address] [address]Dr. Amiemyron Porras MCHC (RBC) [Mass/Vol] 30.8 g/dL Normal 29.9-35.2 [facility] Comment on above: Performed By: #### C BC ####[facility] [address] [address]Dr. Jossy Porras MCV (RBC) [Entitic vol] 99.6 fL Critically high 80.0-94.0 [facility] Comment on above: Performed By: #### C BC ####[facility] [address] [address]Dr. Jossy Porras MONO # 0.5 103/ul Normal 0.3-0.8 [facility] Comment on above: Performed By: #### C BC ####[facility] [address] [address]Dr. Jossy Porras Monocytes/100 WBC (Bld) 5.9 % Normal 1.7-12.0 [facility] Comment on above: Performed By: #### C BC ####[facility] [facility] [address] [place] [address]Dr. Jossy Porras NEUT # 5.3 103/ul Normal 1.4-6.5 [facility] Comment on above: Performed By: #### C BC ####[facility] [address] [place] [address]Dr. Jossy Vern Neutrophils/100 WBC (Bld) 60.4 % Normal 43.0-75.0 [facility] Comment on above: Performed By: #### C BC ####[facility] [address] [place] [address]Dr. Amiemyron Vern Platelet mean volume (Bld) [Entitic vol] 12.2 fL Normal 9.5-13.5 [facility] Comment on above: Performed By: #### C BC ####[facility] [address] [place] [address]Dr. Jossy Porras PLT 199 103/ul Normal 150-450 [facility] Comment on above: Performed By: #### C BC ####[facility] [address] [place] [address]Dr. Amiemyron Vern RBC 5.34 106/ul Normal 4.70-6.10 [facility] Comment on above: Performed By: #### C BC ####[facility] [address] [place] [address]Dr. Amiemyron Vern WBC 8.8 103/ul Normal 4.0-11.0 [facility] Comment on above: Performed By: #### C BC ####[facility] [address] [place] [address]DrSal Porras CULTURE BLOODon 06-07-2022 Microscopic examination of blood, culture Culture Observations: NO GROWTH AT 5 DAYS. Normal [facility] Comment on above: Performed By: #### B LDCX2 #### [facility] [address] [place], [place] [address] Dr. Jossy Porras Microscopic examination of blood, culture Culture Observations: NO GROWTH AT 5 DAYS. Normal [facility] Comment on above: Performed By: #### B LDCX1 ####[facility] [address] [place] [address]DrSal Porras [facility] SARS-CoV-2 (COVID-19) RNA ANGELA+probe Ql (Unsp spec) Not detected Normal NOT DETECTED [facility] Comment on above: Result Comment: When diagnostic [...] for this test is supported by the [place] of Health and Human Service's declaration that [...] be used). Performed By: #### C VDTBH ####[facility] [address] [place] [address]DrSal Porras LACTATE/LACTIC ACIDon 2022 Lactate [Moles/Vol] 1.7 mmol/L Normal 0.4-1.9 [facility] Comment on above: Performed By: #### L ACT #### [facility] [address] [place] [address] Dr. Jossy Porras Lactate [Moles/Vol] 2.1 mmol/L Critically high 0.4-1.9 [facility] Comment on above: Performed By: #### C BC #### [facility] [address] [place] [address] Dr. Jossy Porras PROF 14(COMP METB)on 023 Albumin [Mass/Vol] 3.4 g/dL Normal 3.4-5.0 [facility] Comment on above: Performed By: #### C MP, BNP, HSTROPN ####[facility] [address] [place] [address]Dr. Jossy Porras Albumin/Globulin [Mass ratio] 0.9 {ratio} Normal [facility] Comment on above: Performed By: #### C MP, BNP, HSTROPN ####[facility] [address] [place] [address]Dr. Jossy Porras ALP [Catalytic activity/Vol] 91 U/L Normal 46-116 [facility] Comment on above: Performed By: #### C MP, BNP, HSTROPN ####[facility] [address] [place] [address]Dr. Jossy Porras ALT [Catalytic activity/Vol] 52 U/L Normal 16-63 [facility] Comment on above: Performed By: #### C MP, BNP, HSTROPN ####[facility] [address] [place], [place] [address]Dr. Jossy Porras Anion gap [Moles/Vol] 10.0 mmol/L Normal [facility] Comment on above: Performed By: #### C MP, BNP, HSTROPN ####[facility] [address] [place], [place] [address]Dr. Jossy Porras AST [Catalytic activity/Vol] 30 U/L Normal 15-37 [facility] Comment on above: Performed By: #### C MP, BNP, HSTROPN ####[facility] [address] [place], [place] [address]Dr. Jossy Vern Bilirubin [Mass/Vol] 0.4 mg/dL Normal 0.2-1.0 [facility] Comment on above: Performed By: #### C MP, BNP, HSTROPN ####[facility] [address] [place], [place] [address]Dr. Jossy Porras Calcium [Mass/Vol] 8.8 mg/dL Normal 8.5-10.1 [facility] Comment on above: Performed By: #### C MP, BNP, HSTROPN ####[facility] [address] [place] [address]Dr. Jossy Porras Chloride [Moles/Vol] 102 mmol/L Normal 98-107 [facility] Comment on above: Performed By: #### C MP, BNP, HSTROPN ####[facility] [address] [place] [address]Dr. Jossy Porras CO2 [Moles/Vol] 35.7 mmol/L Critically high 21.0-32.0 [facility] Comment on above: Performed By: #### C MP, BNP, HSTROPN ####[facility] [address] [place] [address]Dr. Jossy Porras Creatinine [Mass/Vol] 1.06 mg/dL Normal 0.70-1.30 [facility] Comment on above: Performed By: #### C MP, BNP, HSTROPN ####[facility] [address] [place], [place] [address]Dr. Jossy Porras EGFR-AF [place] >60 Normal >=60 [facility] Comment on above: Performed By: #### C MP, BNP, HSTROPN ####[facility] [address] [place] [address]Dr. Jossy Porras EGFR-NON AF [place] >60 Normal >=60 [facility] Comment on above: Performed By: #### C MP, BNP, HSTROPN ####[facility] [address] [place] [address]Dr. Jossy Porras Globulin (S) [Mass/Vol] 3.8 g/dL Normal [facility] Comment on above: Performed By: #### C MP, BNP, HSTROPN ####[facility] [address] [place] [address]Dr. Jossy Porras Glucose [Mass/Vol] 107 mg/dL Critically high 74-106 [facility] Comment on above: Performed By: #### C MP, BNP, HSTROPN ####[facility] [address] [place] [address]Dr. Jossy Porras Potassium [Moles/Vol] 3.7 mmol/L Normal 3.5-5.1 [facility] Comment on above: Performed By: #### C MP, BNP, HSTROPN ####[facility] [address] [place], [place] [address]Dr. Jossy Porras Protein [Mass/Vol] 7.2 g/dL Normal 6.4-8.2 [facility] Comment on above: Performed By: #### C MP, BNP, HSTROPN ####[facility] [address] [place], [place] [address]Dr. Jossy Porras Sodium [Moles/Vol] 144 mmol/L Normal 136-145 [facility] Comment on above: Performed By: #### C MP, BNP, HSTROPN ####[facility] [address] [place], [place] [address]Dr. Jossy Porras Urea nitrogen [Mass/Vol] 12.0 mg/dL Normal 7.0-18.0 [facility] Comment on above: Performed By: #### C MP, BNP, HSTROPN ####[facility] [address] [place], [place] [address]Dr. Jossy Porras Urea nitrogen/Creatinine [Mass ratio] 11.3 mg/mg Normal [facility] Comment on above: Performed By: #### C MP, BNP, HSTROPN ####[facility] [address] [place], [place] [address]Dr. Jossy Porras PROTIMEon 06-07-2022 INR Coag (PPP) [Relative time] 1.02 {INR} Normal [facility] Comment on above: Performed By: #### P T ####[facility] [address] [place], [place] [address]Dr. Jossy Porras INR GUIDELINES SEE BELOW Normal [facility] Comment on above: Result Comment: DARLEEN RED INR: 2.0 - 3.0 CONDITIONS NOT LISTED BELOW 2.5 - 3.5 FOR PROSTHETIC HEART VALVE REPLACEMENT 2.5 - 3.5 RECURRENT THROMBOSIS Performed By: #### P T ####[facility] [address] [place], [place] [address]Dr. Jossy Porras PT Coag (PPP) [Time] 10.8 s Normal 9.0-11.6 [facility] Comment on above: Performed By: #### P T ####[facility] [address] [place] [address]Dr. Jossy Porras TROPONIN, HIGH SENSITIVITYon 06-07-2022 HSTROP 22.5 pg/mL Normal 4.0-76.1 [facility] Comment on above: Result Comment: CUT- OFF POINTS HAVE BEEN ESTABLISHED BASED ON THE FOURTH UNIVERSAL DEFINITIONS OF MYOCARDIAL INFARCTION. THE UPPER REFERENCE LIMIT (URL) OF TROPONIN, DEFINED THE 99TH PERCENTILE OF cTnI DISTRIBUTION IN A REFERENCE POPULATION, HAS BEEN CONFIRMED THE DECISION THRESHOLD FOR [place] DIAGNOSIS. Performed By: #### C MP, BNP, HSTROPN ####[facility] [address] [place] [address]Dr. Jossy Porras XR CHEST 1 Von 06-07-2022 [...] JEANNIE GUERRERO Date: 2022-06-07 19:09 Normal [facility] BNPon 05-13-2022 Natriuretic peptide B (Bld) [Mass/Vol] 92.0 pg/mL Normal <=900.0 [facility] Comment on above: Performed By: #### C VDTB #### [facility] [address] [place] [address] [address] Jossy Porras CARDIAC SRIDHAR ADMITon 023 CK [Catalytic activity/Vol] 55 U/L Normal 39-308 [facility] Comment on above: Performed By: #### C VDTBH #### [facility] [address] [place] [address] [address] Jossy Porras CK.MB [Mass/Vol] 1.07 ng/mL Normal <=3.60 [facility] Comment on above: Performed By: #### C VDTBH #### [facility] [address] [place] [address] Dr. Jossy Porras HSTROP 20.2 pg/mL Normal 4.0-76.1 [facility] Comment on above: Result Comment: CUT- OFF POINTS HAVE BEEN ESTABLISHED BASED ON THE FOURTH UNIVERSAL DEFINITIONS OF MYOCARDIAL INFARCTION. THE UPPER REFERENCE LIMIT (URL) OF TROPONIN, DEFINED THE 99TH PERCENTILE OF cTnI DISTRIBUTION IN A REFERENCE POPULATION, HAS BEEN CONFIRMED THE DECISION THRESHOLD FOR [place] DIAGNOSIS. Performed By: #### C VDTBH #### [facility] [address] [place] [address] Dr. Jossy Porras CLEMENT 57 ng/mL Normal 16-96 [facility] Comment on above: Performed By: #### C VDTBH #### [facility] [address] [place] [address] Dr. Jossy Porras CBC AUTO DIFFon 05-13-2022 BASO # 0.1 103/ul Normal 0.0-0.1 [facility] Comment on above: Performed By: #### C VDTBH #### [facility] [address] [place] [address] Dr. Jossy Porras Basophils/100 WBC (Bld) 0.7 % Normal 0.2-2.0 [facility] Comment on above: Performed By: #### C VDTBH #### [facility] [address] [place] [address] Dr. Jossy Porras EO # 0.1 103/ul Normal 0.0-0.7 [facility] Comment on above: Performed By: #### C VDTBH #### [facility] [address] [place] [address] Dr. Jossy Porras Eosinophils/100 WBC (Bld) 1.6 % Normal 0.9-7.0 [facility] Comment on above: Performed By: #### C VDTBH #### [facility] [address] [place] [address] Dr. Jossy Porras Erythrocyte distribution width (RBC) [Ratio] 13.1 % Normal 11.0-15.0 [facility] Comment on above: Performed By: #### C VDTBH #### [facility] [address] [place] [address] Dr. Jossy Porras Hematocrit (Bld) [Volume fraction] 52.8 % Normal 42.0-54.0 [facility] Comment on above: Performed By: #### C VDTBH #### [facility] [address] [place] [address] Dr. Jossy Porras Hemoglobin (Bld) [Mass/Vol] 16.5 g/dL Normal 14.0-18.0 [facility] Comment on above: Performed By: #### C VDTBH #### [facility] [address] [place] [address] Dr. Jossy Porras IG # 0.02 10e3/ul Normal 0.00-0.03 [facility] Comment on above: Performed By: #### C VDTBH #### [facility] [address] [place] [address] Dr. Jossy Porras IG % 0.3 % Normal 0.0-0.5 [facility] Comment on above: Performed By: #### C VDTBH #### [facility] [address] [place] [address] Dr. Jossy Porras LYMPH # 2.2 103/ul Normal 1.2-3.8 [facility] Comment on above: Performed By: #### C VDTBH #### [facility] [address] [place] [address] Dr. Jossy Porras Lymphocytes/100 WBC (Bld) 32.3 % Normal 20.5-60.0 [facility] Comment on above: Performed By: #### C VDTBH #### [facility] [address] [place] [address] Dr. Jossy Porras MANUAL DIFF REQ NO Normal [facility] Comment on above: Performed By: #### C VDTBH #### [facility] [address] [place] [address] Dr. Jossy Porras MCH (RBC) [Entitic mass] 30.8 pg Normal 25.9-34.0 [facility] Comment on above: Performed By: #### C VDTBH #### [facility] [address] [place] [address] Dr. Jossy Porras MCHC (RBC) [Mass/Vol] 31.3 g/dL Normal 29.9-35.2 [facility] Comment on above: Performed By: #### C VDTBH #### [facility] [address] [place] [address] Dr. Jossy Porras MCV (RBC) [Entitic vol] 98.5 fL Critically high 80.0-94.0 [facility] Comment on above: Performed By: #### C VDTBH #### [facility] [address] [place] [address] Dr. Jossy Porras MONO # 0.4 103/ul Normal 0.3-0.8 [facility] Comment on above: Performed By: #### C VDTBH #### [facility] [address] [place] [address] Dr. Jossy Porras Monocytes/100 WBC (Bld) 6.4 % Normal 1.7-12.0 [facility] Comment on above: Performed By: #### C VDTBH #### [facility] [address] [place] [address] Dr. Jossy Porras NEUT # 4.1 103/ul Normal 1.4-6.5 [facility] Comment on above: Performed By: #### C VDTBH #### [facility] [address] [place] [address] Dr. Jossy Porras Neutrophils/100 WBC (Bld) 58.7 % Normal 43.0-75.0 [facility] Comment on above: Performed By: #### C VDTBH #### [facility] [address] [place] [address] Dr. Jossy Porras Platelet mean volume (Bld) [Entitic vol] 12.1 fL Normal 9.5-13.5 [facility] Comment on above: Performed By: #### C VDTBH #### [facility] [address] [place] [address] Dr. Jossy Porras PLT 180 103/ul Normal 150-450 [facility] Comment on above: Performed By: #### C VDTBH #### [facility] [address] [place] [address] Dr. Jossy Porras RBC 5.36 106/ul Normal 4.70-6.10 [facility] Comment on above: Performed By: #### C VDTBH #### [facility] [address] [place] [address] Dr. Jossy Porras WBC 6.9 103/ul Normal 4.0-11.0 [facility] Comment on above: Performed By: #### C VDTBH #### [facility] [address] [place] [address] Dr. Jossy Porras CULTURE BLOODon 05-13-2022 Microscopic examination of blood, culture Culture Observations: NO GROWTH AT 5 DAYS. Normal [facility] Comment on above: Performed By: #### B LDCX2 #### [facility] [address] [place] [address] Dr. Jossy Porras Performed By: #### B LDCX1 #### [facility] [address] [place] [address] Dr. Jossy Porras Covid-19 PCR ([facility])on 05-03 SARS-CoV-2 (COVID-19) RNA ANGELA+probe Ql (Unsp spec) Not detected Normal NOT DETECTED [facility] Comment on above: Result Comment: When [...] for this test is supported by the [employer] of Health and Human Service's declaration that [...] used). Performed By: #### C VDTBH #### [facility] [address] [place] [address] [address] Jossy Porras INFLUENZA A AND B AGon 05-13 [facility] SEE BELOW Normal [facility] Comment on above: Result Comment: Nega tive for Flu A protein angiten. Infection due to Flu A cannot be ruled out. Flu A angiten in the sample may be below the detection limit of the test. Performed By: #### I NFLUAB ####[facility] [address] [place] [address]Dr. Jossy Porras INFLUBNEGH SEE BELOW Normal [facility] Comment on above: Result Comment: Nega tive for Flu B protein antigen. Infection due to Flu B cannot be ruled out. Flu B antigen in the sample may be below the detection limit of the test. Performed By: #### I NFLUAB ####[facility] [address] [place] [address]DrSal Porras INFLUENZA A AG Negative Normal NEGATIVE SEE COMMENT [facility] Comment on above: Performed By: #### I NFLUAB ####[facility] [address] [place], [place] [address]DrSal Porras INFLUENZA B AG Negative Normal NEGATIVE SEE COMMENT [facility] Comment on above: Performed By: #### I NFLUAB ####[facility] [address] [place] [address]Dr. Jossy Porras LACTATE/LACTIC ACIDon 2022 Lactate [Moles/Vol] 1.4 mmol/L Normal 0.4-1.9 [facility] Comment on above: Performed By: #### C VDTBH #### [facility] [address] [place] [address] [address] Jossy Porras PROF 14(COMP METB)on 023 Albumin [Mass/Vol] 3.6 g/dL Normal 3.4-5.0 [facility] Comment on above: Performed By: #### C VDTBH #### [facility] [address] [place] [address] [address] Jossy Porras Albumin/Globulin [Mass ratio] 1.0 {ratio} Normal [facility] Comment on above: Performed By: #### C VDTBH #### [facility] [address] [place] [address] [address] Jossy Porras ALP [Catalytic activity/Vol] 97 U/L Normal 46-116 [facility] Comment on above: Performed By: #### C VDTBH #### [facility] [address] [place] [address] Dr. Jossy Porras ALT [Catalytic activity/Vol] 32 U/L Normal 16-63 [facility] Comment on above: Performed By: #### C VDTBH #### [facility] [address] [place] [address] Dr. Jossy Porras Anion gap [Moles/Vol] 7.0 mmol/L Normal [facility] Comment on above: Performed By: #### C VDTBH #### [facility] [address] [place] [address] Dr. Jossy Porras AST [Catalytic activity/Vol] 28 U/L Normal 15-37 [facility] Comment on above: Performed By: #### C VDTBH #### [facility] [address] [place] [address] Dr. Jossy Porrsa Bilirubin [Mass/Vol] 0.4 mg/dL Normal 0.2-1.0 [facility] Comment on above: Performed By: #### C VDTBH #### [facility] [address] [place] [address] Dr. Jossy Porras Calcium [Mass/Vol] 9.0 mg/dL Normal 8.5-10.1 [facility] Comment on above: Performed By: #### C VDTBH #### [facility] [address] [place] [address] Dr. Jossy Porras Chloride [Moles/Vol] 102 mmol/L Normal 98-107 [facility] Comment on above: Performed By: #### C VDTBH #### [facility] [address] [address] [address] Jossy Porras CO2 [Moles/Vol] 34.3 mmol/L Critically high 21.0-32.0 [facility] Comment on above: Performed By: #### C VDTBH #### [facility] [address] [place] [address] [address] Jossy Porras Creatinine [Mass/Vol] 0.91 mg/dL Normal 0.70-1.30 [facility] Comment on above: Performed By: #### C VDTBH #### [facility] [address] [place] [address] [address] Jossy Porras EGFR-AF [place] >60 Normal >=60 [facility] Comment on above: Performed By: #### C VDTBH #### [facility] [address] [place] [address] Dr. Jossy Porras EGFR-NON AF [place] >60 Normal >=60 [facility] Comment on above: Performed By: #### C VDTBH #### [facility] [address] [place] [address] Dr. Jossy Porras Globulin (S) [Mass/Vol] 3.6 g/dL Normal [facility] Comment on above: Performed By: #### C VDTBH #### [facility] [address] [place] [address] Dr. Jossy Porras Glucose [Mass/Vol] 123 mg/dL Critically high 74-106 [facility] Comment on above: Performed By: #### C VDTBH #### [facility] [address] [address] [address] Jossy Porras Potassium [Moles/Vol] 4.3 mmol/L Normal 3.5-5.1 [facility] Comment on above: Performed By: #### C VDTBH #### [facility] [address] [place] [address] Dr. Jossy Porras Protein [Mass/Vol] 7.2 g/dL Normal 6.4-8.2 [facility] Comment on above: Performed By: #### C VDTBH #### [facility] [address] [address] [address] Jossy Porras Sodium [Moles/Vol] 139 mmol/L Normal 136-145 [facility] Comment on above: Performed By: #### C VDTBH #### [facility] [address] [place] [address] Dr. Jossy Porras Urea nitrogen [Mass/Vol] 11.0 mg/dL Normal 7.0-18.0 [facility] Comment on above: Performed By: #### C VDTBH #### [facility] [address] [place] [address] Dr. Jossy Porras Urea nitrogen/Creatinine [Mass ratio] 12.1 mg/mg Normal [facility] Comment on above: Performed By: #### C VDTBH #### [facility] [address] [place] [address] Dr. Jossy Porras PROTIMEon 05-13-2022 INR Coag (PPP) [Relative time] 1.01 {INR} Normal [facility] Comment on above: Performed By: #### C BC #### [facility] [address] [place] [address] Dr. Jossy Porras INR GUIDELINES SEE BELOW Normal [facility] Comment on above: Result Comment: DARLEEN RED INR: 2.0 - 3.0 CONDITIONS NOT LISTED BELOW 2.5 - 3.5 FOR PROSTHETIC HEART VALVE REPLACEMENT 2.5 - 3.5 RECURRENT THROMBOSIS Performed By: #### C BC #### [facility] [address] [place] [address] Dr. Jossy Porras PT Coag (PPP) [Time] 10.7 s Normal 9.0-11.6 [facility] Comment on above: Performed By: #### C BC #### [facility] [address] [place] [address] Dr. Jossy Porras PTTon 05-13-2022 aPTT Coag (Bld) [Time] 25.9 s Normal 22.3-36.2 [facility] Comment on above: Performed By: #### C BC #### [facility] [address] [place] [address] Dr. Jossy Porras XR CHEST 1 Von [...] NIELS BERNAL Date: 2022-05-13 17:04 Normal [facility] HEMOGLOBINon 02-16-2022 Hemoglobin (Bld) [Mass/Vol] 16.9 g/dL Normal 14.0-18.0 [facility] Comment on above: Performed By: #### C BC #### [facility] [address] [place] [address] Dr. Jossy Porras BNPon 12-13-2021 Natriuretic peptide B (Bld) [Mass/Vol] 166.0 pg/mL Normal <=900.0 [facility] Comment on above: Performed By: #### C BC #### [facility] [address] [place] [address] Dr. Jossy Porras CARDIAC SRIDHAR ADMITon 022 CK [Catalytic activity/Vol] 30 U/L Critically low 39-308 [facility] Comment on above: Performed By: #### C BC #### [facility] [address] [place] [address] Dr. Jossy Porras CK.MB [Mass/Vol] 1.20 ng/mL Normal <=3.60 [facility] Comment on above: Performed By: #### C BC #### [facility] [address] [place] [address] Dr. Jossy Porras HSTROP 27.9 pg/mL Normal 4.0-76.1 [facility] Comment on above: Result Comment: CUT- OFF POINTS HAVE BEEN ESTABLISHED BASED ON THE FOURTH UNIVERSAL DEFINITIONS OF MYOCARDIAL INFARCTION. THE UPPER REFERENCE LIMIT (URL) OF TROPONIN, DEFINED THE 99TH PERCENTILE OF cTnI DISTRIBUTION IN A REFERENCE POPULATION, HAS BEEN CONFIRMED THE DECISION THRESHOLD FOR [place] DIAGNOSIS. Performed By: #### C BC #### [facility] [id number] Jossy Porras CLEMENT 44 ng/mL Normal 16-96 [facility] Comment on above: Performed By: #### C BC #### [facility] [id number] Jossy Porras CBC AUTO DIFFon 12-13-2021 BASO # 0.0 103/ul Normal 0.0-0.1 [facility] Comment on above: Performed By: #### C BC ####[facility] [address] [address]DrSal Porras Basophils/100 WBC (Bld) 0.3 % Normal 0.2-2.0 [facility] Comment on above: Performed By: #### C BC ####[facility] [address] [address]DrSal Porras EO # 0.2 103/ul Normal 0.0-0.7 [facility] Comment on above: Performed By: #### C BC ####[facility] [address] [address]DrSal Porras Eosinophils/100 WBC (Bld) 1.3 % Normal 0.9-7.0 [facility] Comment on above: Performed By: #### C BC ####[facility] [address] [address]DrSal Porras Erythrocyte distribution width (RBC) [Ratio] 14.1 % Normal 11.0-15.0 [facility] Comment on above: Performed By: #### C BC ####[facility] [address] [address]DrSal Porras Hematocrit (Bld) [Volume fraction] 50.9 % Normal 42.0-54.0 [facility] Comment on above: Performed By: #### C BC ####[facility] [address] [address]DrSal Porras Hemoglobin (Bld) [Mass/Vol] 16.4 g/dL Normal 14.0-18.0 [facility] Comment on above: Performed By: #### C BC ####[facility] [address] [address]Dr. Jossy Porras IG # 0.08 10e3/ul Critically high 0.00-0.03 [facility] Comment on above: Performed By: #### C BC ####[facility] [address] [address]Dr. Jossy Porras IG % 0.7 % Critically high 0.0-0.5 [facility] Comment on above: Performed By: #### C BC ####[facility] [address] [address]Dr. Jossy Porras LYMPH # 3.2 103/ul Normal 1.2-3.8 [facility] Comment on above: Performed By: #### C BC ####[facility] [address] [address]Dr. Jossy Porras Lymphocytes/100 WBC (Bld) 27.6 % Normal 20.5-60.0 [facility] Comment on above: Performed By: #### C BC ####[facility] [address] [address]Dr. Jossy Porras MANUAL DIFF REQ NO Normal [facility] Comment on above: Performed By: #### C BC ####[facility] [address] [address]Dr. Jossy Porras MCH (RBC) [Entitic mass] 31.1 pg Normal 25.9-34.0 [facility] Comment on above: Performed By: #### C BC ####[facility] [address] [address]Dr. Jossy Porras MCHC (RBC) [Mass/Vol] 32.2 g/dL Normal 29.9-35.2 [facility] Comment on above: Performed By: #### C BC ####[facility] [address] [address]Dr. Jossy Porras MCV (RBC) [Entitic vol] 96.6 fL Critically high 80.0-94.0 [facility] Comment on above: Performed By: #### C BC ####[facility] [address] [address]Dr. Jossy Porras MONO # 0.8 103/ul Normal 0.3-0.8 [facility] Comment on above: Performed By: #### C BC ####[facility] [address] [address]Dr. Jossy Porras Monocytes/100 WBC (Bld) 6.7 % Normal 1.7-12.0 [facility] Comment on above: Performed By: #### C BC ####[facility] [address] [address]Dr. Jossy Porras NEUT # 7.3 103/ul Critically high 1.4-6.5 [facility] Comment on above: Performed By: #### C BC ####[facility] [address] [address]Dr. Jossy Porras Neutrophils/100 WBC (Bld) 63.4 % Normal 43.0-75.0 [facility] Comment on above: Performed By: #### C BC ####[facility] [address] [address]Dr. Jossy Porras Platelet mean volume (Bld) [Entitic vol] 11.2 fL Normal 9.5-13.5 [facility] Comment on above: Performed By: #### C BC ####[facility] [address] [address]Dr. Jossy Porras PLT 213 103/ul Normal 150-450 [facility] Comment on above: Performed By: #### C BC ####[facility] [address] [address]Dr. Jossy Porras RBC 5.27 106/ul Normal 4.70-6.10 [facility] Comment on above: Performed By: #### C BC ####[facility] [address] [address]Dr. Jossy Porras WBC 11.6 103/ul Critically high 4.0-11.0 [facility] Comment on above: Performed By: #### C BC ####[facility] [place], [place] [address]Ne. Jossy Porras CTA CHEST WO W CONon [...] The subdiaphragmatic abdominal organs included in the [id number] do not demonstrate any acute abnormality. IMPRESSION: [...] nodules can be found at: http://pubs.rsna.org /doi/abs/10.1148/rad iol.4857218075 ------- Sunny Citation: Information used in this report was referenced from the following. Guidelines for Management of Incidental Pulmonary Nodules Detected on CT Images: From the Fleischner Society 2017 Radiology. 2017 Rubens;284(1):228-243. doi: 10.1148/radiol.[id number] 83693. Epub 2016Jun 25. Electronically authenticated by: CARLA SANTOS Date: 2021-12-13 16:37 Normal [facility] Covid-19 PCR (CVDTBH)on 12-01 SARS-CoV-2 (COVID-19) RNA ANGELA+probe Ql (Unsp spec) Not detected Normal NOT DETECTED [facility] Comment on above: Result Comment: When diagnostic [...] for this test is supported by the Non Profit Financial Controller of Health and Human Service's declaration that [...] used). Performed By: #### C BC #### [facility] [address] [address] [address] Jossy Porras D-DIMERon 12-13-2021 D-DIMER 1.68 mg/L FEU Critically high <=0.59 [facility] Comment on above: Performed By: #### D DIM ####[facility] [address] [address]Dr. Jossy Porras D-DIMER COMMENTS SEE BELOW Normal [facility] Comment on above: Result Comment: Incr [...] generalized hospitalization. Performed By: #### D DIM ####[facility] [address] [address]Dr. Jossy Porras PROF 14(COMP METB)on 022 Albumin [Mass/Vol] 3.4 g/dL Normal 3.4-5.0 [facility] Comment on above: Performed By: #### C VDTBH #### [facility] [address] [address] [address] Jossy Porras Albumin/Globulin [Mass ratio] 0.7 {ratio} Normal [facility] Comment on above: Performed By: #### C VDTBH #### [facility] [address] [address] [address] Jossy Porras ALP [Catalytic activity/Vol] 132 U/L Critically high 46-116 [facility] Comment on above: Performed By: #### C VDTBH #### [facility] [address] [address] [address] Jossy Porras ALT [Catalytic activity/Vol] 65 U/L Critically high 16-63 [facility] Comment on above: Performed By: #### C VDTBH #### [facility] [address] [address] [address] Jossy Porras Anion gap [Moles/Vol] 10.8 mmol/L Normal [facility] Comment on above: Performed By: #### C VDTBH #### [facility] [address] [address] [address] Jossy oPrras AST [Catalytic activity/Vol] 26 U/L Normal 15-37 [facility] Comment on above: Performed By: #### C VDTBH #### [facility] [address] [place] [address] Dr. Jossy Porras Bilirubin [Mass/Vol] 0.6 mg/dL Normal 0.2-1.0 [facility] Comment on above: Performed By: #### C VDTBH #### [facility] [address] [place] [address] Dr. Jossy Porras Calcium [Mass/Vol] 8.7 mg/dL Normal 8.5-10.1 [facility] Comment on above: Performed By: #### C VDTBH #### [facility] [address] [place] [address] Dr. Jossy Porras Chloride [Moles/Vol] 101 mmol/L Normal 98-107 [facility] Comment on above: Performed By: #### C VDTBH #### [facility] [address] [place] [address] Dr. Jossy Porras CO2 [Moles/Vol] 28.9 mmol/L Normal 21.0-32.0 [facility] Comment on above: Performed By: #### C VDTBH #### [facility] [address] [place] [address] Dr. Jossy Porras Creatinine [Mass/Vol] 0.86 mg/dL Normal 0.70-1.30 [facility] Comment on above: Performed By: #### C VDTBH #### [facility] [address] [address] [address] Jossy Porras EGFR-AF KUWAITI >60 Normal >=60 [facility] Comment on above: Performed By: #### C VDTBH #### [facility] [address] [address] [address] Jossy Porras EGFR-NON AF [place]UWAITI >60 Normal >=60 [facility] Comment on above: Performed By: #### C VDTBH #### [facility] [address] [address] [address] Jossy Porras Globulin (S) [Mass/Vol] 4.6 g/dL Normal [facility] Comment on above: Performed By: #### C VDTBH #### [facility] [address] [place] [address] Dr. Jossy Porras Glucose [Mass/Vol] 117 mg/dL Critically high 74-106 [facility] Comment on above: Performed By: #### C VDTBH #### [facility] [address] [place] [address] Dr. Jossy Porras Potassium [Moles/Vol] 4.7 mmol/L Normal 3.5-5.1 [facility] Comment on above: Performed By: #### C VDTBH #### [facility] [address] [place] [address] Dr. Josys Porras Protein [Mass/Vol] 8.0 g/dL Normal 6.4-8.2 [facility] Comment on above: Performed By: #### C VDTBH #### [facility] [address] [address] [address] Jossy Porras Sodium [Moles/Vol] 136 mmol/L Normal 136-145 [facility] Comment on above: Performed By: #### C VDTBH #### [facility] [address] [place] [address] Dr. Jossy Porras Urea nitrogen [Mass/Vol] 14.0 mg/dL Normal 7.0-18.0 [facility] Comment on above: Performed By: #### C VDTBH #### [facility] [address] [address] [address] Jossy Porras Urea nitrogen/Creatinine [Mass ratio] 16.3 mg/mg Normal [facility] Comment on above: Performed By: #### C VDTBH #### [facility] [address] [address] [address] Jossy Porras XR CHEST 1 Von [...] JEFRY SMITH Date: 2021-12-13 15:28 Normal [facility] CBC AUTO DIFFon 11-25-2021 BASO # 0.0 103/ul Normal 0.0-0.1 [facility] Comment on above: Performed By: #### C BC ####[facility] [address] [address]Dr. Jossy Porras Basophils/100 WBC (Bld) 0.3 % Normal 0.2-2.0 [facility] Comment on above: Performed By: #### C BC ####[facility] [address] [address]DrSal Porras EO # 0.0 103/ul Normal 0.0-0.7 [facility] Comment on above: Performed By: #### C BC ####[facility] [address] [address]DrSal Porras Eosinophils/100 WBC (Bld) 0.0 % Critically low 0.9-7.0 [facility] Comment on above: Performed By: #### C BC ####[facility] [address] [address]DrSal Porras Erythrocyte distribution width (RBC) [Ratio] 13.2 % Normal 11.0-15.0 [facility] Comment on above: Performed By: #### C BC ####[facility] [address] [address]Dr. Jossy Porras Hematocrit (Bld) [Volume fraction] 47.0 % Normal 42.0-54.0 [facility] Comment on above: Performed By: #### C BC ####[facility] [address] [address]Dr. Amiemyron Porras Hemoglobin (Bld) [Mass/Vol] 16.0 g/dL Normal 14.0-18.0 [facility] Comment on above: Performed By: #### C BC ####[facility] [address] [place], [place] [address]Dr. Amiemyron Porras IG # 0.01 10e3/ul Normal 0.00-0.03 [facility] Comment on above: Performed By: #### C BC ####[facility] [address] [place], [place] [address]Dr. Jossy Porras IG % 0.3 % Normal 0.0-0.5 [facility] Comment on above: Performed By: #### C BC ####[facility] [address] [place], [place] [address]Dr. Amiemyron Porras LYMPH # 0.7 103/ul Critically low 1.2-3.8 [facility] Comment on above: Performed By: #### C BC ####[facility] Ev[address] [place], [place] [address]Dr. Jossy Porras Lymphocytes/100 WBC (Bld) 22.2 % Normal 20.5-60.0 [facility] Comment on above: Performed By: #### C BC ####[facility] [address] [address]Dr. Amiemyron Porras MANUAL DIFF REQ NO Normal [facility] Comment on above: Performed By: #### C BC ####[facility] [address] [address]Dr. Jossy Porras MCH (RBC) [Entitic mass] 31.4 pg Normal 25.9-34.0 [facility] Comment on above: Performed By: #### C BC ####[facility] [address] [address]Dr. Jossy Vern MCHC (RBC) [Mass/Vol] 34.0 g/dL Normal 29.9-35.2 [facility] Comment on above: Performed By: #### C BC ####[facility] [address] [address]Dr. Jossy Porras MCV (RBC) [Entitic vol] 92.3 fL Normal 80.0-94.0 [facility] Comment on above: Performed By: #### C BC ####[facility] [address]ce[address] [place], [place] [address]Dr. Jossy Porras MONO # 0.1 103/ul Critically low 0.3-0.8 [facility] Comment on above: Performed By: #### C BC ####[facility] [address]ffdtmuzns[address] [place], [place] [address]Dr. Jossy Porras Monocytes/100 WBC (Bld) 2.5 % Normal 1.7-12.0 [facility] Comment on above: Performed By: #### C BC ####[facility] [address] [place], [place] [address]Dr. Amiemyron Vern NEUT # 2.4 103/ul Normal 1.4-6.5 [facility] Comment on above: Performed By: #### C BC ####[facility] [address] [place], [place] [address]Dr. Jossy Porras Neutrophils/100 WBC (Bld) 74.7 % Normal 43.0-75.0 [facility] Comment on above: Performed By: #### C BC ####[facility] [address]ci[address] [place], [place] [address]Dr. Jossy Porras Platelet mean volume (Bld) [Entitic vol] 12.4 fL Normal 9.5-13.5 [facility] Comment on above: Performed By: #### C BC ####[facility] [address]ks[address] [place], [place] [address]Dr. Jossy Porras PLT 95 103/ul Critically low 150-450 [facility] Comment on above: Performed By: #### C BC ####[facility] [address] [place], [place] [address]Ov. Jossy Porras RBC 5.09 106/ul Normal 4.70-6.10 [facility] Comment on above: Performed By: #### C BC ####[facility] [address] [place], [place] [address]Xz. Jossy Porras WBC 3.2 103/ul Critically low 4.0-11.0 [facility] Comment on above: Performed By: #### C BC ####[facility] [address] [address]Dr. Jossy Porras CRPon 11-25-2021 CRP 3.5 mg/dL Critically high <=1.0 [facility] Comment on above: Performed By: #### C VDTBH #### [facility] [address] [place], [place] [address] Dr. Jossy Porras PROF 14(COMP METB)on 022 Albumin [Mass/Vol] 3.2 g/dL Critically low 3.4-5.0 [facility] Comment on above: Performed By: #### C MP, CRP ####[facility] [address] [address]Dr. Jossy Porras Albumin/Globulin [Mass ratio] 0.8 {ratio} Normal [facility] Comment on above: Performed By: #### C MP, CRP ####[facility] [address] [address]Dr. Jossy Porras ALP [Catalytic activity/Vol] 99 U/L Normal 46-116 [facility] Comment on above: Performed By: #### C MP, CRP ####[facility] [address] [address]Dr. Jossy Porras ALT [Catalytic activity/Vol] 47 U/L Normal 16-63 [facility] Comment on above: Performed By: #### C MP, CRP ####[facility] [address] [address]Dr. Jossy Porras Anion gap [Moles/Vol] 9.1 mmol/L Normal [facility] Comment on above: Performed By: #### C MP, CRP ####[facility] [address] [address]Dr. Jsosy Porras AST [Catalytic activity/Vol] 34 U/L Normal 15-37 [facility] Comment on above: Performed By: #### C MP, CRP ####[facility] [address] [address]Dr. Jossy Porras Bilirubin [Mass/Vol] 0.8 mg/dL Normal 0.2-1.0 [facility] Comment on above: Performed By: #### C MP, CRP ####[facility] [address]ux[address] [place], [place] [address]Dr. Jossy Porras Calcium [Mass/Vol] 8.5 mg/dL Normal 8.5-10.1 [facility] Comment on above: Performed By: #### C MP, CRP ####[facility] [address]ee[address] [place], [place] [address]Dr. Jossy Porras Chloride [Moles/Vol] 101 mmol/L Normal 98-107 [facility] Comment on above: Performed By: #### C MP, CRP ####[facility] [address]qoodfq[address] [place], [place] [address]Dr. Jossy Porras CO2 [Moles/Vol] 30.5 mmol/L Normal 21.0-32.0 [facility] Comment on above: Performed By: #### C MP, CRP ####[facility] [address]kqj[address] [place], [place] [address]Dr. Jossy Porras Creatinine [Mass/Vol] 0.96 mg/dL Normal 0.70-1.30 [facility] Comment on above: Performed By: #### C MP, CRP ####[facility] [address] [place], [place] [address]Dr. Jossy Porras EGFR-AF [place]I >60 Normal >=60 [facility] Comment on above: Performed By: #### C MP, CRP ####[facility] [address]mzo[address]ulq[address] [place], [place] [address]Dr. Jossy Porras EGFR-NON AF [place]I >60 Normal >=60 [facility] Comment on above: Performed By: #### C MP, CRP ####[facility] [address] [address]Dr. Jossy Porras Globulin (S) [Mass/Vol] 4.2 g/dL Normal [facility] Comment on above: Performed By: #### C MP, CRP ####[facility] [address] [address]Dr. Jossy Porras Glucose [Mass/Vol] 165 mg/dL Critically high 74-106 [facility] Comment on above: Performed By: #### C MP, CRP ####[facility] [address]qr[address]zupc[address] [place], [place] [address]Dr. Jossy Vern Potassium [Moles/Vol] 4.6 mmol/L Normal 3.5-5.1 [facility] Comment on above: Performed By: #### C MP, CRP ####[facility] [address]pbokexpm[address] [place], [place] [address]Dr. Jossy Porras Protein [Mass/Vol] 7.4 g/dL Normal 6.4-8.2 [facility] Comment on above: Performed By: #### C MP, CRP ####[facility] [address]kqlmkv[address] [place], [place] [address]Dr. Jossy Vern Sodium [Moles/Vol] 136 mmol/L Normal 136-145 [facility] Comment on above: Performed By: #### C MP, CRP ####[facility] [address]cekbce[address] [place], [place] [address]Dr. Jossy Vern Urea nitrogen [Mass/Vol] 15.0 mg/dL Normal 7.0-18.0 [facility] Comment on above: Performed By: #### C MP, CRP ####[facility] [address]to[address] [place], [place] [address]Dr. Amiemyron Vern Urea nitrogen/Creatinine [Mass ratio] 15.6 mg/mg Normal [facility] Comment on above: Performed By: #### C MP, CRP ####[facility] [address]zpfwak[address] [place], [place] [address]Dr. Jossy Porras CBC AUTO DIFFon 11-24-2021 BASO # 0.0 103/ul Normal 0.0-0.1 [facility] Comment on above: Performed By: #### C VDTBH #### [facility] [address] [place] [address] Dr. Jossy Porras Basophils/100 WBC (Bld) 0.5 % Normal 0.2-2.0 [facility] Comment on above: Performed By: #### C VDTBH #### [facility] [address] [place] [address] Dr. Jossy Porras EO # 0.0 103/ul Normal 0.0-0.7 [facility] Comment on above: Performed By: #### C VDTBH #### [facility] [address] [place] [address] Dr. Jossy Porras Eosinophils/100 WBC (Bld) 0.0 % Critically low 0.9-7.0 [facility] Comment on above: Performed By: #### C VDTBH #### [facility] [address] [place] [address] Dr. Jossy Porras Erythrocyte distribution width (RBC) [Ratio] 13.3 % Normal 11.0-15.0 [facility] Comment on above: Performed By: #### C VDTBH #### [facility] [address] [place] [address] Dr. Jossy Porras Hematocrit (Bld) [Volume fraction] 48.5 % Normal 42.0-54.0 [facility] Comment on above: Performed By: #### C VDTBH #### [facility] [address] [place] [address] Dr. Jossy Porras Hemoglobin (Bld) [Mass/Vol] 16.2 g/dL Normal 14.0-18.0 [facility] Comment on above: Performed By: #### C VDTBH #### [facility] [address] [place] [address] Dr. Jossy Porras IG # 0.02 10e3/ul Normal 0.00-0.03 [facility] Comment on above: Performed By: #### C VDTBH #### [facility] [address] [address] [address] Jossy Porras IG % 0.5 % Normal 0.0-0.5 [facility] Comment on above: Performed By: #### C VDTBH #### [facility] [address] [address] [address] Jossy Porras LYMPH # 1.3 103/ul Normal 1.2-3.8 [facility] Comment on above: Performed By: #### C VDTBH #### [facility] [address] [address] [address] Jossy Porras Lymphocytes/100 WBC (Bld) 28.2 % Normal 20.5-60.0 [facility] Comment on above: Performed By: #### C VDTBH #### [facility] [address] [place] [address] Dr. Jossy Porras MANUAL DIFF REQ NO Normal [facility] Comment on above: Performed By: #### C VDTBH #### [facility] [address] [place] [address] Dr. Jossy Porras MCH (RBC) [Entitic mass] 31.2 pg Normal 25.9-34.0 [facility] Comment on above: Performed By: #### C VDTBH #### [facility] [address] [place] [address] Dr. Jossy Porras MCHC (RBC) [Mass/Vol] 33.4 g/dL Normal 29.9-35.2 [facility] Comment on above: Performed By: #### C VDTBH #### [facility] [address] [place] [address] Dr. Jossy Porras MCV (RBC) [Entitic vol] 93.4 fL Normal 80.0-94.0 [facility] Comment on above: Performed By: #### C VDTBH #### [facility] [address] [place] [address] Dr. Jossy Porras MONO # 0.3 103/ul Normal 0.3-0.8 [facility] Comment on above: Performed By: #### C VDTBH #### [facility] [address] [place] [address] Dr. Jossy Porras Monocytes/100 WBC (Bld) 6.5 % Normal 1.7-12.0 [facility] Comment on above: Performed By: #### C VDTBH #### [facility] [address] [place] [address] Dr. Jossy Porras NEUT # 2.9 103/ul Normal 1.4-6.5 [facility] Comment on above: Performed By: #### C VDTBH #### [facility] [address] [place] [address] Dr. Jossy Porras Neutrophils/100 WBC (Bld) 64.3 % Normal 43.0-75.0 [facility] Comment on above: Performed By: #### C VDTBH #### [facility] [address] [place] [address] Dr. Jossy Porras Platelet mean volume (Bld) [Entitic vol] 12.6 fL Normal 9.5-13.5 [facility] Comment on above: Performed By: #### C VDTBH #### [facility] [address] [place] [address] Dr. Jossy Porras PLT 106 103/ul Critically low 150-450 [facility] Comment on above: Performed By: #### C VDTBH #### [facility] [address] [place] [address] Dr. Jossy Porras RBC 5.19 106/ul Normal 4.70-6.10 [facility] Comment on above: Performed By: #### C VDTBH #### [facility] [address] [place] [address] Dr. Jossy Porras WBC 4.4 103/ul Normal 4.0-11.0 [facility] Comment on above: Performed By: #### C VDTBH #### [facility] [address] [place] [address] Dr. Jossy Porras CULTURE BLOODon 11-24-2021 Microscopic examination of blood, culture Culture Observations: NO GROWTH AT 5 DAYS. Normal [facility] Comment on above: Performed By: #### B LDCX2 #### [facility] [address] [place], [place] [address] Dr. Jossy Porras Microscopic examination of blood, culture Culture Observations: NO GROWTH AT 5 DAYS. Normal [facility] Comment on above: Performed By: #### B LDCX1 ####[facility] [address] [place], [place] [address]PyDr. Jossy Porras Covid-19 PCR (CVDTBH)on 11-01 SARS-CoV-2 (COVID-19) RNA ANGELA+probe Ql (Unsp spec) Detected Critically abnormal NOT DETECTED [facility] Comment on above: Result Comment: This test is not yet approved or cleared by the [place] FDA. When there are no FDA-approved or cleared tests available, and other criteria are met, FDA can make tests available under an emergency access mechanism called an Emergency Use Authorization (EUA). The EUA for this test is supported by the [place] of Health and Human Service's declaration that [...] used). Performed By: #### C VDTBH #### [facility] [address] [place] [id number] Jossy Porras LACTATE/LACTIC ACIDon 2021 Lactate [Moles/Vol] 1.5 mmol/L Normal 0.4-1.9 [facility] Comment on above: Performed By: #### L ACT ####[facility] [address] [place] [address]Dr. Jossy Porras PROF 14(COMP METB)on 022 Albumin [Mass/Vol] 3.3 g/dL Critically low 3.4-5.0 [facility] Comment on above: Performed By: #### C MP, HSTROPN ####[facility] [address] [place] [address]Dr. Jossy Porras Albumin/Globulin [Mass ratio] 0.8 {ratio} Normal [facility] Comment on above: Performed By: #### C KWABENA HSTROPN ####[facility] [address] [place] [address]Dr. Jossy Porras ALP [Catalytic activity/Vol] 98 U/L Normal 46-116 [facility] Comment on above: Performed By: #### C KWABENA, HSTROPN ####[facility] [address] [place] [address]Dr. Amiemyron Porras ALT [Catalytic activity/Vol] 48 U/L Normal 16-63 [facility] Comment on above: Performed By: #### C KWABENA HSTROPN ####[facility] [address] [place], [place] [address]Dr. Jossy Porras Anion gap [Moles/Vol] 10.1 mmol/L Normal [facility] Comment on above: Performed By: #### C KWABENA HSTROPN ####[facility] [address] [place], [place] [address]Dr. Amiemyron Porras AST [Catalytic activity/Vol] 38 U/L Critically high 15-37 [facility] Comment on above: Performed By: #### C KWABENA HSTROPN ####[facility] [address] [place], [place] [address]Dr. Jossy Porras Bilirubin [Mass/Vol] 0.7 mg/dL Normal 0.2-1.0 [facility] Comment on above: Performed By: #### C KWABENA HSTROPN ####[facility] [address] [place], [place] [address]Dr. Jossy Porras Calcium [Mass/Vol] 8.4 mg/dL Critically low 8.5-10.1 [facility] Comment on above: Performed By: #### C KWABENA HSTROPN ####[facility] [address] [place], [place] [address]Dr. Jossy Porras Chloride [Moles/Vol] 100 mmol/L Normal 98-107 [facility] Comment on above: Performed By: #### C KWABENA HSTROPN ####[facility] [address] [place] [address]Dr. Jossy Porras CO2 [Moles/Vol] 31.0 mmol/L Normal 21.0-32.0 [facility] Comment on above: Performed By: #### C KWABENA, HSTROPN ####[facility] [address] [place] [address]Dr. Jossy Porras Creatinine [Mass/Vol] 1.09 mg/dL Normal 0.70-1.30 [facility] Comment on above: Performed By: #### C MP, HSTROPN ####[facility] [address] [place] [address]Dr. Jossy Porras EGFR-AF [place]I >60 Normal >=60 [facility] Comment on above: Performed By: #### C KWABENA, HSTROPN ####[facility] [address] [place], [place] [address]Dr. Amiemyron Porras EGFR-NON AF [place] >60 Normal >=60 [facility] Comment on above: Performed By: #### C KWABENA, HSTROPN ####[facility] [address] [place] [address]Dr. Amiemyron Porras Globulin (S) [Mass/Vol] 4.1 g/dL Normal [facility] Comment on above: Performed By: #### C KWABENA, HSTROPN ####[facility] [address] [place] [address]Dr. Amiemyron Porras Glucose [Mass/Vol] 136 mg/dL Critically high 74-106 [facility] Comment on above: Performed By: #### C MP, HSTROPN ####[facility] [address] [place] [address]Dr. Amiemyron Porras Potassium [Moles/Vol] 4.1 mmol/L Normal 3.5-5.1 [facility] Comment on above: Performed By: #### C MP, HSTROPN ####[facility] [address] [place] [address]Dr. Jossy Porras Protein [Mass/Vol] 7.4 g/dL Normal 6.4-8.2 [facility] Comment on above: Performed By: #### C KWABENA, HSTROPN ####[facility] [address] [place] [address]Dr. Jossy Porras Sodium [Moles/Vol] 137 mmol/L Normal 136-145 [facility] Comment on above: Performed By: #### C KWABENA, HSTROPN ####[facility] [address] [place] [address]Dr. Jossy Porras Urea nitrogen [Mass/Vol]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
[2023-12-05 03:27] VITALS: BP 175/97; PULSE 95; TEMP 36.4; O2SAT 99; BMI 23.7
[2023-12-05 03:32] VITALS: PULSE 85
--- NOTE | 2023-12-05 03:42 | XR_ITS ---
The [address] [address] Patient Name: JAMSHID VARELA MRN: [id number] date: 1955 Sex: M Assigned Patient Location: ER Current Patient Location: ER Accession/Order Number: [id number] Exam Date: 12/05/2023 03:48 Report Date: 12/05/2023 04:46 At the request of: LONNIE CANO Procedure: XR chest 1V EXAM: XR chest 1V HISTORY: SOB COMPARISON: Chest radiograph dated 02/09/2023. TECHNIQUE: One view of the chest was obtained. FINDINGS: The cardiac silhouette is normal in size. Aortic atherosclerotic disease is seen. The lungs are clear. There is no significant pneumothorax or pleural effusion. No acute osseous abnormality is seen. XR/XR chest 1V IMPRESSION: 1. No acute cardiopulmonary abnormality. Electronically authenticated by: Guillermo PAGE Date: 12/05/2023 04:46
--- NOTE | 2023-12-05 03:47 | ED.SOB1 ---
HPI - SOB/Dyspnea General Chief Complaint: Shortness of Breath/Dyspnea Stated Complaint: SOB Time Seen by Provider: 12/05/23 03:43 Source: patient Mode of arrival: ambulance Limitations: no limitations History of Present Illness HPI Narrative: patient has history of 02 dependent COPD. daily smoker. Presents complaining of shortness of breath and back pain. Has chronic back jernigan but states he is having a flare up of his pain at this time. No injury. No weakness of his extremities. Denies chest pain or fever Related Data Home Medications ?Medication ?Instructions ?Recorded ?Confirmed albuterol sulfate 2.5 mg/3 mL 2.5 mg inhalation Q6H PRN 12/23/22 09/15/23 (0.083 %) solution for nebulization shortness of breath or wheezing aspirin 81 mg chewable tablet 81 mg PO DAILY 12/23/22 09/15/23 buspirone 10 mg tablet 7.5 mg PO DAILY 02/09/23 09/15/23 fluticasone propionate 50 2 spray intranasal DAILY 02/10/23 04/12/23 mcg/actuation nasal spray,suspension (24 Hour Allergy Relief) oxymetazoline 0.05 % nasal spray 2 spray intranasal Q12H 02/10/23 02/10/23 (12 Hour Nasal Relief [place]) acetaminophen 325 mg tablet 650 mg PO Q6H PRN fever or pain 04/12/23 09/15/23 (Non-Aspirin) cholecalciferol (vitamin D3) 1,250 50,000 unit PO QWEEK 04/12/23 04/12/23 mcg (50,000 unit) tablet ferrous sulfate 325 mg (65 mg 325 mg PO DAILY 04/12/23 04/12/23 iron) tablet (Keesha-Time) metformin 500 mg tablet,extended 500 mg PO DAILY 04/12/23 04/12/23 release 24 hr omega 6-nxc-azk-fish oil 1,000 mg 1 cap PO DAILY 04/12/23 04/12/23 (120 mg-180 mg) capsule (Fish Oil) oxymetazoline 0.05 % nasal spray 2 spray intranasal BID 04/12/23 04/12/23 prednisolone sodium phosphate 10 20 mg PO DAILY 04/12/23 09/15/23 mg disintegrating tablet umeclidinium 62.5 mcg/actuation 1 inh inhalation Q24H 04/12/23 04/12/23 blister powder for inhalation (Incruse Ellipta) Previous Rx's ?Medication ?Instructions ?Recorded budesonide 0.5 mg/2 mL suspension 0.5 mg (2 mL) inhalation BID PRN 02/07/23 for nebulization shortness of breath #60 mL levofloxacin 750 mg tablet 750 mg PO DAILY 7 days #7 tabs 02/07/23 alprazolam 0.5 mg tablet 0.5 mg PO TID PRN anxiety 5 days 02/12/23 #15 tabs prednisone 20 mg tablet 20 mg PO DAILY #1 tab 02/12/23 ondansetron 4 mg disintegrating 4 mg PO Q6H PRN nausea and 04/12/23 tablet vomiting #12 tabs ondansetron 4 mg disintegrating 4 mg PO Q6H PRN nausea and 04/12/23 tablet vomiting #12 tabs Allergies Allergy/AdvReac Type Severity Reaction Status Date / Time No Known Drug Allergies Allergy Verified 12/05/23 03:30 Review of Systems ROS Status of ROS 10 or more systems reviewed and unremarkable except as noted in history and below [facility] Medical History (Updated 12/05/23 @ 05:26 by Tobias Bone MD) COPD exacerbation ?J44.1 - Chronic obstructive pulmonary disease with (acute) exacerbation (ICD-10) Shortness of breath ?R06.02 - Shortness of breath (ICD-10) Headache ?R51.9 - Headache, unspecified (ICD-10) COVID ?U07.1 - COVID-19 (ICD-10) Acute infective exacerbation of chronic obstructive airway disease ?J44.1 - Chronic obstructive pulmonary disease with (acute) exacerbation (ICD-10) Anxiety ?F41.9 - Anxiety disorder, unspecified (ICD-10) Chronic obstructive pulmonary disease (COPD) ?J44.9 - Chronic obstructive pulmonary disease, unspecified (ICD-10) Current smoker ?F17.200 - Nicotine dependence, unspecified, uncomplicated (ICD-10) Leukocytosis ?D72.829 - Elevated white blood cell count, unspecified (ICD-10) Pulmonary cachexia due to chronic obstructive pulmonary disease ?J44.9 - Chronic obstructive pulmonary disease, unspecified (ICD-10) ?R64 - Cachexia (ICD-10) COVID-19 ?U07.1 - COVID-19 (ICD-10) Chronic respiratory failure with hypoxia ?J96.11 - Chronic respiratory failure with hypoxia (ICD-10) COPD (chronic obstructive pulmonary disease) ?J44.9 - Chronic obstructive pulmonary disease, unspecified (ICD-10) 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 - Cqtqi-2-dtmbwohbjjt deficiency (ICD-10) COPD with acute exacerbation ?J44.1 - Chronic obstructive pulmonary disease with (acute) exacerbation (ICD-10) Asthma exacerbation with COPD (chronic obstructive pulmonary disease) ?J44.1 - Chronic obstructive pulmonary disease with (acute) exacerbation (ICD-10) ?J45.901 - Unspecified asthma with (acute) exacerbation (ICD-10) Family History Father Family history of CHF (congestive heart failure) Family history of hypertension Mother Family history of CHF (congestive heart failure) Family history of COPD (chronic obstructive pulmonary disease) Family history of hypertension Social History Within the past year, how often did you have a drink containing alcohol: monthly or less Within the past year, how many standard drinks containing alcohol did you have on a typical day: 1 or 2 Within the past year, how often did you have six or more drinks on one occasion: never Total score: 0 Score interpretation: A score less than 4 is consistent with normal alcohol consumption. Smoking status: Current every day smoker Non-prescribed substance use: cannabis (any form) Previous occupational history: retired Highest level of school completed/degree received: some college, no degree Are you now , , , , never or living with a partner: In a typical week, how many times do you talk on the telephone with family, friends, or neighbors: twice per week How often do you get together with friends or relatives: twice per week How often do you attend scientology or roman catholic services: never Do you belong to any clubs or organizations such as scientology groups unions, fraternal or athletic groups, or school groups: no Total score: 1 Score interpretation: A score of less than or equal to 1 indicates the most socially isolated. Little interest or pleasure in doing things: not at all Feeling down, depressed, or hopeless: nearly every day Feel stressed/tense/nervous/anxious/difficulty sleeping: rather much Do you think of yourself as: straight/heterosexual Gender Identity: male Exam Constitutional Vital Signs, click to edit/add: Last Vital Signs Temp 97.6 F 12/05/23 03:27 Pulse 95 H 12/05/23 04:07 Resp 18 12/05/23 04:07 BP 175/97 H 12/05/23 03:27 Pulse Ox 98 12/05/23 04:07 O2 Del Method Nasal Cannula 12/05/23 04:07 O2 Flow Rate 3 12/05/23 03:27 Common normals: average body habitus, oriented x3, no limitations, healthy appearing, alert and well nourished General appearance: in distress HENMT Common normals: normocephalic and head/scalp atraumatic Chest Common normals: inspection of chest normal Respiratory Effort & inspection: audible wheezes Cardio Common normals: regular rate, regular rhythm, S1 normal heart sound and S2 normal heart sound GI Common normals: Normal to inspection, nondistended, normoactive bowel sounds present, soft to palpation and non-tender Extremity Common normals: normal to inspection and full ROM Neuro Common normals: oriented x3, CN's II-XII intact bilaterally, moves all extremities and no focal motor deficits Psych Appearance: grossly normal Course Vital Signs Vital signs: Vital Signs Temperature 97.6 F 12/05/23 03:27 Pulse Rate 95 H 12/05/23 03:27 Respiratory Rate 20 12/05/23 03:27 Blood Pressure 175/97 H 12/05/23 03:27 Pulse Oximetry 99 12/05/23 03:27 Oxygen Delivery Method Nasal Cannula 12/05/23 03:27 Oxygen Delivery Flow Rate 3 12/05/23 03:27 Temperature 97.6 F 12/05/23 03:27 Pulse Rate 95 H 12/05/23 04:07 Respiratory Rate 18 12/05/23 04:07 Blood Pressure 175/97 H 12/05/23 03:27 Pulse Oximetry 98 12/05/23 04:07 Oxygen Delivery Method Nasal Cannula 12/05/23 04:07 Oxygen Delivery Flow Rate 3 12/05/23 03:27 MDM - SOB/Dyspnea MDM Narrative Medical decision making narrative: history of 02 dependent COPD who still smokes. History of chronic lower back pain. Presents complaining of flare up of his back pain and shortness of breath. Given albuterol NMT via Squad and solumedrol IVP. Arrives here in mild respiratory distress with audible wheezing. Found to have lower back tenderness. Cxray with evidence of emphysema. Patient treated with duoneb, magnesium, toradol and fentanyl. His back pain is improvded. COVID19 neg. Patient re examined and states he is feeling better. RR 18 and pulse ox 98% with home 02. Exam of chest still has faint wheeze but patient admits he always has wheezing. troponin neg. WBC WNL. Patient non ambulatory and requires wheelchair. Discharged back to retirement Lab Data Labs: Lab Results 12/05/23 12/05/23 Range/Units 03:35 05:05 WBC 9.5 (4.0-11.0) 10^3/uL RBC 4.65 L (4.70-6.10) 10^6/uL Hgb 14.4 (14.0-18.0) g/dL Hct 47.5 (42.0-54.0) % MCV 102.2 H (80.0-94.0) fL MCH 31.0 (25.9-34.0) pg MCHC 30.3 (29.9-35.2) g/dL RDW 13.5 (11.0-15.0) % Plt Count 178 (150-450) 10^3/uL MPV 11.7 (9.5-13.5) fL Neut % (Auto) 68.3 (43.0-75.0) % Lymph % (Auto) 22.7 (20.5-60.0) % Curry % (Auto) 6.5 (1.7-12.0) % Eos % (Auto) 0.6 L (0.9-7.0) % Baso % (Auto) 0.6 (0.2-2.0) % Neut # (Auto) 6.5 (1.4-6.5) 10^3/uL Lymph # (Auto) 2.2 (1.2-3.8) 10^3/uL Curry # (Auto) 0.6 (0.3-0.8) 10^3/uL Eos # (Auto) 0.1 (0.0-0.7) 10^3/uL Baso # (Auto) 0.1 (0.0-0.1) 10^3/uL Abs Immat Gran (auto) 0.12 H (0.00-0.03) 10^3/uL Imm/Tot Granulo (auto) 1.3 H (0.0-0.5) % Sodium 143 (136-145) mmol/L Potassium 3.6 (3.5-5.1) mmol/L Chloride 101 (98-107) mmol/L Carbon Dioxide 40.9 H (21.0-32.0) mmol/L Anion Gap 4.7 BUN 23.0 H (7.0-18.0) mg/dL Creatinine 0.80 (0.70-1.30) mg/dL Est GFR ( Amer) >60 (>=60) Est GFR (Non-Af Amer) >60 (>=60) BUN/Creatinine Ratio 28.8 Glucose 92 (74-106) mg/dL Calcium 9.1 (8.5-10.1) mg/dL Troponin I High Sens 31.1 (4.0-76.1) pg/mL SARS-CoV-2 Ag (CV2AG) Negative (NEGATIVE) Discharge Plan Discharge Stand Alone Forms: Portal Instructions Chief Complaint: Shortness of Breath/Dyspnea Clinical Impression: Acute exacerbation of chronic obstructive pulmonary disease (COPD), Chronic lower back pain Patient Disposition: Home, Self-Care Prescriptions / Home Meds: No Action levofloxacin 750 mg tablet 750 mg PO DAILY 7 Days Qty: 7 0RF budesonide 0.5 mg/2 mL suspension for nebulization 0.5 mg inhalation BID PRN (Reason: shortness of breath) Qty: 60 0RF buspirone 10 mg tablet 7.5 mg PO DAILY oxymetazoline [12 Hour Nasal Relief [place]] 0.05 % spray,non-aerosol 2 spray intranasal Q12H fluticasone propionate [24 Hour Allergy Relief] 50 mcg/actuation spray,suspension 2 spray intranasal DAILY Rx Instructions: administer into each nostril prednisone 20 mg tablet 20 mg PO DAILY Qty: 1 0RF Rx Instructions: 3 PO daily x 3 days, then 2 PO daily x 3 days, then 1 PO daily alprazolam 0.5 mg tablet 0.5 mg PO TID PRN (Reason: anxiety) 5 Days Qty: 15 0RF albuterol sulfate 2.5 mg /3 mL (0.083 %) solution for nebulization 2.5 mg inhalation Q6H PRN (Reason: shortness of breath or wheezing) aspirin 81 mg tablet,chewable 81 mg PO DAILY cholecalciferol (vitamin D3) 1,250 mcg (50,000 unit) tablet 50,000 unit PO QWEEK ferrous sulfate [Keesha-Time] 325 mg (65 mg iron) tablet 325 mg PO DAILY omega 6-xzb-hrk-fish oil [Fish Oil] 1,000 mg (120 mg-180 mg) capsule 1 cap PO DAILY Incruse Ellipta 62.5 mcg/actuation blister with device 1 inh inhalation Q24H metformin 500 mg tablet extended release 24 hr 500 mg PO DAILY oxymetazoline 0.05 % spray,non-aerosol 2 spray intranasal BID prednisolone sodium phosphate 10 mg tablet,disintegrating 20 mg PO DAILY acetaminophen [Non-Aspirin] 325 mg tablet 650 mg PO Q6H PRN (Reason: fever or pain) ondansetron 4 mg tablet,disintegrating 4 mg PO Q6H PRN (Reason: nausea and vomiting) Qty: 12 0RF ondansetron 4 mg tablet,disintegrating 4 mg PO Q6H PRN (Reason: nausea and vomiting) Qty: 12 0RF Print Language: Marshallese Instructions: Chronic Pain (ED), COPD (Chronic Obstructive Pulmonary Disease) (ED) Additional Instructions: follow up with Dr Figueroa next week Referrals: TIBURCIO FIGUEROA [Primary Care Provider] - 1 week
--- NOTE | 2023-12-05 03:50 | ECG_ITS ---
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
[2023-12-05 03:58] LABS: Basophils Absolute Auto 0.1 10^3/uL (0.0-0.1); Basophils Percent Auto 0.6 % (0.2-2.0); Eosinophils Absolute Auto 0.1 10^3/uL (0.0-0.7); Eosinophils Percent Auto 0.6 % (0.9-7.0); Hematocrit 47.5 % (42.0-54.0); Hemoglobin 14.4 g/dL (14.0-18.0); Immature Granulocytes Abs Auto 0.12 10^3/uL (0.00-0.03); Immature Granulocytes Pct Auto 1.3 % (0.0-0.5); Lymphocytes Absolute Auto 2.2 10^3/uL (1.2-3.8); Lymphocytes Percent Auto 22.7 % (20.5-60.0); Mean Corpuscular HGB Conc 30.3 g/dL (29.9-35.2); Mean Corpuscular Volume 102.2 fL (80.0-94.0); Mean Platelet Volume 11.7 fL (9.5-13.5); Monocytes Absolute Auto 0.6 10^3/uL (0.3-0.8); Monocytes Percent Auto 6.5 % (1.7-12.0); Neutrophils Absolute Auto 6.5 10^3/uL (1.4-6.5); Neutrophils Percent Auto 68.3 % (43.0-75.0); Platelet Count 178 10^3/uL (150-450); Red Blood Count 4.65 10^6/uL (4.70-6.10); Red Cell Distribution Width 13.5 % (11.0-15.0); White Blood Count 9.5 10^3/uL (4.0-11.0)
[2023-12-05] MEDS: IPRATROPIUM/ALBUTEROL SULFATE 3 ML AMPUL.NEB IH (04:04)
[2023-12-05 04:07] VITALS: PULSE 95; O2SAT 98
[2023-12-05] MEDS: KETOROLAC TROMETHAMINE 30 MG/ML VIAL IVP (04:13)
[2023-12-05] MEDS: MAGNESIUM SULFATE IN WATER 2 GM/50 ML PREMIX IV (04:14)
[2023-12-05 04:15] LABS: Anion Gap 4.7; BUN Creatinine Ratio 28.8; Calcium 9.1 mg/dL (8.5-10.1); Carbon Dioxide 40.9 mmol/L (21.0-32.0); Chloride 101 mmol/L (98-107); Estimated GFR (African America >60 (>=60); Estimated GFR (Non-African Ame >60 (>=60); Glucose 92 mg/dL (74-106); Potassium 3.6 mmol/L (3.5-5.1); Sodium 143 mmol/L (136-145); Troponin I High Sensitivity 31.1 pg/mL (4.0-76.1)
[2023-12-05] MEDS: FENTANYL CITRATE/PF 100 MCG/2 ML VIAL 50 MCG IV (04:51)
[2023-12-05 05:20] LABS: Internal Control Within Normal Limits; SARS-CoV-2 Ag NEGATIVE (NEGATIVE)
[2023-12-05 05:56] VITALS: BP 146/81; PULSE 92; TEMP 36.4; O2SAT 97
[2023-12-05] MEDS: HYDROCODONE/ACET 5-325 MG TABLET 1 TAB PO (08:54)
== END 2023-12-05 08:57 | disposition home or self-care (01) ==
PROVIDERS: Emergency Provider Internal Medicine; PCP Family Medicine
DX: J44.1 Chronic obstructive pulmonary disease with (acute) exacerbation (principal); G89.29 Other chronic pain; M54.50 Low back pain, unspecified; Z99.81 Dependence on supplemental oxygen; F17.210 Nicotine dependence, cigarettes, uncomplicated; Z20.822 Contact with and (suspected) exposure to COVID-19
CPT/HCPCS: 36415; 71045; 80048; 84484; 85025; 87811; 93005; 94640; 96365; 96375; 99285; J1885; J3010; J3475

== ENCOUNTER 2023-12-09 18:26 | Emergency (ER) | payer MEDICARE, MEDICAID, SELFPAY ==
[2023-12-09] VITALS (37 sets, daily range): BP systolic 110–162; BP diastolic 68–114; PULSE 79–112; TEMP 36.9; O2SAT 84–100; BMI 23.7
--- NOTE | 2023-12-09 18:33 | XR_ITS ---
The [address] [address] Patient Name: JAMSHID VARELA MRN: [id number] date: 1955 Sex: M Assigned Patient Location: ER Current Patient Location: ER Accession/Order Number: [id number] Exam Date: 12/09/2023 18:48 Report Date: 12/09/2023 20:53 At the request of: ANDREW LUCERO Procedure: XR chest 1V EXAMINATION: XR chest 1V, , 12/09/2023 6:48 PM EDT INDICATION: Chest Pain HISTORY: Ordering Provider Reason for Exam: Chest Pain Technologist Note: Additional: COMPARISON: XR chest 1V Study Date: 12/05/2023 TECHNIQUE: Chest x-ray: One view. FINDINGS: No pneumothorax, pleural effusion or focal airspace consolidation. Heart is normal in size. Bony thorax is unremarkable. XR/XR chest 1V IMPRESSION: No acute cardiopulmonary process. Electronically authenticated by: JEANNIE GUERRERO Date: 12/09/2023 20:53
--- NOTE | 2023-12-09 18:33 | ECG_ITS ---
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
--- NOTE | 2023-12-09 18:33 | ED_ITS ---
HPI - Chest Pain General Chief Complaint: Chest Pain Stated Complaint: DIFF BREATHING Time Seen by Provider: 12/09/23 18:33 History of Present Illness HPI narrative: 67-year-old male presents for chest pain. He states has been there for 2 days continuously, never goes away. He has a history of COPD and his breathing is normal worse than it usually is. According to paramedics he has been refusing essentially all care at the [facility] where he is staying. He has not had a known fever or productive cough. It is in the middle of the chest and it does not seem to radiate. Related Data Home Medications ?Medication ?Instructions ?Recorded ?Confirmed albuterol sulfate 2.5 mg/3 mL 2.5 mg inhalation Q6H PRN 12/23/22 09/15/23 (0.083 %) solution for nebulization shortness of breath or wheezing aspirin 81 mg chewable tablet 81 mg PO DAILY 12/23/22 09/15/23 buspirone 10 mg tablet 7.5 mg PO DAILY 02/09/23 09/15/23 fluticasone propionate 50 2 spray intranasal DAILY 02/10/23 04/12/23 mcg/actuation nasal spray,suspension (24 Hour Allergy Relief) oxymetazoline 0.05 % nasal spray 2 spray intranasal Q12H 02/10/23 02/10/23 (12 Hour Nasal Relief [place]) acetaminophen 325 mg tablet 650 mg PO Q6H PRN fever or pain 04/12/23 09/15/23 (Non-Aspirin) cholecalciferol (vitamin D3) 1,250 50,000 unit PO QWEEK 04/12/23 04/12/23 mcg (50,000 unit) tablet ferrous sulfate 325 mg (65 mg 325 mg PO DAILY 04/12/23 04/12/23 iron) tablet (Keesha-Time) metformin 500 mg tablet,extended 500 mg PO DAILY 04/12/23 04/12/23 release 24 hr omega 6-xyp-wbu-fish oil 1,000 mg 1 cap PO DAILY 04/12/23 04/12/23 (120 mg-180 mg) capsule (Fish Oil) oxymetazoline 0.05 % nasal spray 2 spray intranasal BID 04/12/23 04/12/23 prednisolone sodium phosphate 10 20 mg PO DAILY 04/12/23 09/15/23 mg disintegrating tablet umeclidinium 62.5 mcg/actuation 1 inh inhalation Q24H 04/12/23 04/12/23 blister powder for inhalation (Incruse Ellipta) Previous Rx's ?Medication ?Instructions ?Recorded budesonide 0.5 mg/2 mL suspension 0.5 mg (2 mL) inhalation BID PRN 02/07/23 for nebulization shortness of breath #60 mL levofloxacin 750 mg tablet 750 mg PO DAILY 7 days #7 tabs 02/07/23 alprazolam 0.5 mg tablet 0.5 mg PO TID PRN anxiety 5 days 02/12/23 #15 tabs prednisone 20 mg tablet 20 mg PO DAILY #1 tab 02/12/23 ondansetron 4 mg disintegrating 4 mg PO Q6H PRN nausea and 04/12/23 tablet vomiting #12 tabs ondansetron 4 mg disintegrating 4 mg PO Q6H PRN nausea and 04/12/23 tablet vomiting #12 tabs Allergies Allergy/AdvReac Type Severity Reaction Status Date / Time No Known Drug Allergies Allergy Verified 12/05/23 03:30 Review of Systems ROS Narrative A ten point review of systems is negative except as noted above. [facility] Medical History (Updated 12/09/23 @ 18:35 by Maico Patton MD) COPD exacerbation ?J44.1 - Chronic obstructive pulmonary disease with (acute) exacerbation (ICD-10) Shortness of breath ?R06.02 - Shortness of breath (ICD-10) Headache ?R51.9 - Headache, unspecified (ICD-10) COVID ?U07.1 - COVID-19 (ICD-10) Acute infective exacerbation of chronic obstructive airway disease ?J44.1 - Chronic obstructive pulmonary disease with (acute) exacerbation (ICD-10) Anxiety ?F41.9 - Anxiety disorder, unspecified (ICD-10) Chronic obstructive pulmonary disease (COPD) ?J44.9 - Chronic obstructive pulmonary disease, unspecified (ICD-10) Current smoker ?F17.200 - Nicotine dependence, unspecified, uncomplicated (ICD-10) Leukocytosis ?D72.829 - Elevated white blood cell count, unspecified (ICD-10) Pulmonary cachexia due to chronic obstructive pulmonary disease ?J44.9 - Chronic obstructive pulmonary disease, unspecified (ICD-10) ?R64 - Cachexia (ICD-10) COVID-19 ?U07.1 - COVID-19 (ICD-10) Chronic respiratory failure with hypoxia ?J96.11 - Chronic respiratory failure with hypoxia (ICD-10) COPD (chronic obstructive pulmonary disease) ?J44.9 - Chronic obstructive pulmonary disease, unspecified (ICD-10) 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 - Eaogy-4-mtnqclgvfns deficiency (ICD-10) COPD with acute exacerbation ?J44.1 - Chronic obstructive pulmonary disease with (acute) exacerbation (ICD-10) Asthma exacerbation with COPD (chronic obstructive pulmonary disease) ?J44.1 - Chronic obstructive pulmonary disease with (acute) exacerbation (ICD-10) ?J45.901 - Unspecified asthma with (acute) exacerbation (ICD-10) Family History Father Family history of CHF (congestive heart failure) Family history of hypertension Mother Family history of CHF (congestive heart failure) Family history of COPD (chronic obstructive pulmonary disease) Family history of hypertension Social History Within the past year, how often did you have a drink containing alcohol: monthly or less Within the past year, how many standard drinks containing alcohol did you have on a typical day: 1 or 2 Within the past year, how often did you have six or more drinks on one occasion: never Total score: 0 Score interpretation: A score less than 4 is consistent with normal alcohol consumption. Smoking status: Current every day smoker Non-prescribed substance use: cannabis (any form) Previous occupational history: retired Highest level of school completed/degree received: some college, no degree Are you now , , , , never or living with a partner: In a typical week, how many times do you talk on the telephone with family, friends, or neighbors: twice per week How often do you get together with friends or relatives: twice per week How often do you attend christianity or yazdanism services: never Do you belong to any clubs or organizations such as christianity groups unions, fraternal or athletic groups, or school groups: no Total score: 1 Score interpretation: A score of less than or equal to 1 indicates the most socially isolated. Little interest or pleasure in doing things: not at all Feeling down, depressed, or hopeless: nearly every day Feel stressed/tense/nervous/anxious/difficulty sleeping: rather much Do you think of yourself as: straight/heterosexual Gender Identity: male Exam Narrative Exam Narrative: Nurses note and vital signs reviewed and patient is not hypoxic. General: The patient appears in no apparent distress. He appears moderately dyspneic. Skin: Warm, dry, no pallor noted. There is no rash noted. Head: Normocephalic, atraumatic Eye: Normal conjunctiva, no drainage Ears, Nose, Mouth, and Throat: oral mucosa is moist. Nares patent. Cardiovascular: Regular Rate and Rhythm Respiratory: Bilateral rhonchi throughout Back: non-tender GI: Soft and nontender Musculoskeletal: The patient has no evidence of calf tenderness, no pitting edema, symmetrical pulses noted bilaterally Neurological: Awake and alert Psychiatric: Cooperative MDM - Chest Pain MDM Narrative Medical decision making narrative: Test are ordered and the patient is signed out to Dr. Zamora at change of shift. Differential Diagnosis Differential diagnosis: Likely pneumothorax, unstable angina pectoris, atypical chest pain, st elevation myocardial infarction and chest pain Discharge Plan Discharge Chief Complaint: Chest Pain Clinical Impression: Chest pain Patient Disposition: Still a Patient Prescriptions / Home Meds: No Action levofloxacin 750 mg tablet 750 mg PO DAILY 7 Days Qty: 7 0RF budesonide 0.5 mg/2 mL suspension for nebulization 0.5 mg inhalation BID PRN (Reason: shortness of breath) Qty: 60 0RF buspirone 10 mg tablet 7.5 mg PO DAILY oxymetazoline [12 Hour Nasal Relief [place]] 0.05 % spray,non-aerosol 2 spray intranasal Q12H fluticasone propionate [24 Hour Allergy Relief] 50 mcg/actuation spray,suspension 2 spray intranasal DAILY Rx Instructions: administer into each nostril prednisone 20 mg tablet 20 mg PO DAILY Qty: 1 0RF Rx Instructions: 3 PO daily x 3 days, then 2 PO daily x 3 days, then 1 PO daily alprazolam 0.5 mg tablet 0.5 mg PO TID PRN (Reason: anxiety) 5 Days Qty: 15 0RF albuterol sulfate 2.5 mg /3 mL (0.083 %) solution for nebulization 2.5 mg inhalation Q6H PRN (Reason: shortness of breath or wheezing) aspirin 81 mg tablet,chewable 81 mg PO DAILY cholecalciferol (vitamin D3) 1,250 mcg (50,000 unit) tablet 50,000 unit PO QWEEK ferrous sulfate [Keesha-Time] 325 mg (65 mg iron) tablet 325 mg PO DAILY omega 8-bvy-geg-fish oil [Fish Oil] 1,000 mg (120 mg-180 mg) capsule 1 cap PO DAILY Incruse Ellipta 62.5 mcg/actuation blister with device 1 inh inhalation Q24H metformin 500 mg tablet extended release 24 hr 500 mg PO DAILY oxymetazoline 0.05 % spray,non-aerosol 2 spray intranasal BID prednisolone sodium phosphate 10 mg tablet,disintegrating 20 mg PO DAILY acetaminophen [Non-Aspirin] 325 mg tablet 650 mg PO Q6H PRN (Reason: fever or pain) ondansetron 4 mg tablet,disintegrating 4 mg PO Q6H PRN (Reason: nausea and vomiting) Qty: 12 0RF ondansetron 4 mg tablet,disintegrating 4 mg PO Q6H PRN (Reason: nausea and vomiting) Qty: 12 0RF Print Language: Maltese Referrals: TIBURCIO FIGUEROA [Primary Care Provider] - 1 week
--- OUTSIDE RECORDS SUMMARY | 2023-12-09 18:34 | XMS_ITS | CCD ---
Author Organization [facility] Care Team Providers Care Alarm Signaler Name Role Phone LENNOX GILL Attending Unavailable [...] FAWWAD, HERZOG H Admitting Unavailable DR MARIBETH CEDLILO Consulting Unavailable FAWWAAriel, HERZOG H Attending Unavailable FAWWAAriel, HERZOG H Primary Care Unavailable ELI PEREZ Consulting Unavailable JEANNIE GUERRERO Consulting Unavailable FAWWAD, HERZOG H Consulting Unavailable APRYL PARRISH Consulting Unavailable SPNECER, SARA Admitting Unavailable SARA PALMER Attending Unavailable SPENCER SARA Consulting Unavailable FAWWAD, HERZOG H Primary Care Unavailable SHAWN DOBBS Attending Unavailable DAVY DE SOUZA Admitting Unavailable Shaikh Hook MD Primary Care Provider [phone] SHAIKH HOOK Primary Care Unavailable MARIBETH MINOR [...] Onset: 06-20-2022 Episodic Other aftercare (1 source) 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 [employer] Basophils (Bld) [#/Vol] 0.04 10*3/uL [facility] Basophils/100 WBC (Bld) 1 % 0 - 2 % [facility] Eosinophils/100 WBC (Bld) 2 % 1 - 4 % [facility] Hematocrit (Bld) [Volume fraction] 42.5 % 40.7 - 50.3 % [facility] Hemoglobin (Bld) [Mass/Vol] 13.4 g/dL 13.0 - 17.0 g/dL [facility] Immature granulocytes/100 WBC (Bld) 2 % High 0 [facility] Interpretation and review of laboratory results Abnormal [facility] Lymphocytes/100 WBC (Bld) 28 % 24 - 43 % [facility] MCH (RBC) [Entitic mass] 31.2 pg 25.2 - 33.5 pg [facility] MCHC (RBC) [Mass/Vol] 31.5 g/dL 28.4 - 34.8 g/dL [facility] MCV (RBC) [Entitic vol] 99.1 fL 82.6 - 102.9 fL [facility] Monocytes/100 WBC (Bld) 7 % 3 - 12 % [facility] NRBC Automated 0.0 0.0 per 100 WBC [facility] Platelet distribution width (Bld) [Ratio] 13.7 % 11.8 - 14.4 % [facility] Platelet mean volume (Bld) [Entitic vol] 11.7 fL 8.1 - 13.5 fL [facility] Platelets (Bld) [#/Vol] 177 10*3/uL [facility] RBC (Bld) [#/Vol] 4.29 10*6/uL 4.21 - 5.7 7 m/uL [facility] Segmented neutrophils/100 WBC (Bld) 60 % 36 - 65 % [facility] Segs Absolute 4.21 [facility] WBC (Bld) [#/Vol] 6.9 10*3/uL [facility] CBC with Diffon 06-27-2022 Abs. Basophil 0.04 k/uL Normal 0.00-0.20 [facility] Comment on above: Performed By: #### E RTPF, FT4, GLYHGB, ALB, TSH, B12, VD25, ECENZ #### [address] [address] Returner: Abelardo Castaneda MD Abs.Imm.Granulocyte 0.16 k/uL Normal 0.00-0.30 [facility] Comment on above: Performed By: #### E RTPF, FT4, GLYHGB, ALB, TSH, B12, VD25, ECENZ #### [place] [address] Returner: Abelardo Castaneda MD Abs.Neutrophil (Seg) 4.21 k/uL Normal 1.50-8.10 [facility] Comment on above: Performed By: #### E RTPF, FT4, GLYHGB, ALB, TSH, B12, VD25, ECENZ #### [place] [address] Returner: Abelardo Castaneda MD Basophils/100 WBC (Bld) 1 % Normal 0-2 [facility] Comment on above: Performed By: #### E RTPF, FT4, GLYHGB, ALB, TSH, B12, VD25, ECENZ #### [place] [address] Returner: Abelardo Castaneda MD Eosinophils (Bld) [#/Vol] 0.10 10*3/uL Normal 0.00-0.44 [facility] Comment on above: Performed By: #### E RTPF, FT4, GLYHGB, ALB, TSH, B12, VD25, ECENZ #### [address] [address] Returner: Abelardo Castaneda MD Eosinophils/100 WBC (Bld) 2 % Normal 1-4 [facility] Comment on above: Performed By: #### E RTPF, FT4, GLYHGB, ALB, TSH, B12, VD25, ECENZ #### [address] [phone] Returner: Abelardo Castaneda MD Erythrocyte distribution width (RBC) [Ratio] 13.7 % Normal 11.8-14.4 [facility] Comment on above: Performed By: #### E RTPF, FT4, GLYHGB, ALB, TSH, B12, VD25, ECENZ #### [address] [phone] Returner: Abelardo Castaneda MD Hematocrit (Bld) [Volume fraction] 42.5 % Normal 40.7-50.3 [facility] Comment on above: Performed By: #### E RTPF, FT4, GLYHGB, ALB, TSH, B12, VD25, ECENZ #### [address] [address] Returner: Abelardo Castaneda MD Hemoglobin (Bld) [Mass/Vol] 13.4 g/dL Normal 13.0-17.0 [facility] Comment on above: Performed By: #### E RTPF, FT4, GLYHGB, ALB, TSH, B12, VD25, ECENZ #### [address] [address] Returner: Abelardo Castaneda MD Immature granulocytes/100 WBC (Bld) 2 % High 0 [facility] Comment on above: Performed By: #### E RTPF, FT4, GLYHGB, ALB, TSH, B12, VD25, ECENZ #### [address] [address] Returner: Abelardo Castaneda MD Lymphocytes (Bld) [#/Vol] 1.90 10*3/uL Normal 1.10-3.70 [facility] Comment on above: Performed By: #### E RTPF, FT4, GLYHGB, ALB, TSH, B12, VD25, ECENZ #### [address] [phone] Returner: Abelardo Castaneda MD Lymphocytes/100 WBC (Bld) 28 % Normal 24-43 [facility] Comment on above: Performed By: #### E RTPF, FT4, GLYHGB, ALB, TSH, B12, VD25, ECENZ #### [address] [phone] Returner: Abelardo Castaneda MD MCH (RBC) [Entitic mass] 31.2 pg Normal 25.2-33.5 [facility] Comment on above: Performed By: #### E RTPF, FT4, GLYHGB, ALB, TSH, B12, VD25, ECENZ #### [address] [address] Returner: Abelardo Castaneda MD MCHC (RBC) [Mass/Vol] 31.5 g/dL Normal 28.4-34.8 [facility] Comment on above: Performed By: #### E RTPF, FT4, GLYHGB, ALB, TSH, B12, VD25, ECENZ #### [address] [address] Returner: Abelardo Castaneda MD MCV (RBC) [Entitic vol] 99.1 fL Normal 82.6-102.9 [facility] Comment on above: Performed By: #### E RTPF, FT4, GLYHGB, ALB, TSH, B12, VD25, ECENZ #### [address] [address] Returner: Abelardo Castaneda MD Monocytes (Bld) [#/Vol] 0.48 10*3/uL Normal 0.10-1.20 [facility] Comment on above: Performed By: #### E RTPF, FT4, GLYHGB, ALB, TSH, B12, VD25, ECENZ #### [address] [address] Returner: Abelardo Castaneda MD Monocytes/100 WBC (Bld) 7 % Normal 3-12 [facility] Comment on above: Performed By: #### E RTPF, FT4, GLYHGB, ALB, TSH, B12, VD25, ECENZ #### [address] [address] Returner: Abelardo Castaneda MD Neutrophil (Seg) 60 % Normal 36-65 [facility] Comment on above: Performed By: #### E RTPF, FT4, GLYHGB, ALB, TSH, B12, VD25, ECENZ #### [address] [address] Returner: Abelardo Castaneda MD NRBC Automated 0.0 per 100 WBC Normal 0.0 [facility] Comment on above: Performed By: #### E RTPF, FT4, GLYHGB, ALB, TSH, B12, VD25, ECENZ #### [address] [address] Returner: Abelardo Castaneda MD Platelet mean volume (Bld) [Entitic vol] 11.7 fL Normal 8.1-13.5 [facility] Comment on above: Performed By: #### E RTPF, FT4, GLYHGB, ALB, TSH, B12, VD25, ECENZ #### [address] [address] Returner: Abelardo Castaneda MD Platelets (Bld) [#/Vol] 177 10*3/uL Normal 138-453 [facility] Comment on above: Performed By: #### E RTPF, FT4, GLYHGB, ALB, TSH, B12, VD25, ECENZ #### [address] [address] Returner: Abelardo Castaneda MD RBC (Bld) [#/Vol] 4.29 10*6/uL Normal 4.21-5.77 [facility] Comment on above: Performed By: #### E RTPF, FT4, GLYHGB, ALB, TSH, B12, VD25, ECENZ #### [address] [address] Returner: Abelardo Castaneda MD WBC (Bld) [#/Vol] 6.9 10*3/uL Normal 3.5-11.3 [facility] Comment on above: Performed By: #### E RTPF, FT4, GLYHGB, ALB, TSH, B12, VD25, ECENZ #### [address] [address] Returner: Abelardo Castaneda MD Comp Metabolic Pr/rfx MGon 0 06-27-2022 Anion gap [Moles/Vol] 5 mmol/L Low 9-17 [facility] Comment on above: Performed By: #### E RTPF, FT4, GLYHGB, ALB, TSH, B12, VD25, ECENZ #### [address] [address] Returner: Abelardo Castaneda MD Chloride [Moles/Vol] 101 mmol/L Normal 98-107 [facility] Comment on above: Performed By: #### E RTPF, FT4, GLYHGB, ALB, TSH, B12, VD25, ECENZ #### [facility] [employer] [address] [place] [phone] Returner: Abelardo Castaneda MD Potassium [Moles/Vol] 4.7 mmol/L Normal 3.7-5.3 [facility] Comment on above: Performed By: #### E RTPF, FT4, GLYHGB, ALB, TSH, B12, VD25, ECENZ #### [address] [phone] Returner: Abelardo Castaneda MD Sodium [Moles/Vol] 139 mmol/L Normal 135-144 [facility] Comment on above: Performed By: #### E RTPF, FT4, GLYHGB, ALB, TSH, B12, VD25, ECENZ #### [address] [address] Returner: Abelardo Castaneda MD Albumin [Mass/Vol] 3.0 g/dL Low 3.5-5.2 [facility] Comment on above: Performed By: #### E RTPF, FT4, GLYHGB, ALB, TSH, B12, VD25, ECENZ #### [address] [address] Returner: Abelardo Castaneda MD Albumin/Glob Ratio 1.2 Normal 1.0-2.5 [facility] Comment on above: Performed By: #### E RTPF, FT4, GLYHGB, ALB, TSH, B12, VD25, ECENZ #### [address] [address] Returner: Abelardo Castaneda MD Alkaline Phos 80 U/L Normal 40-129 [facility] Comment on above: Performed By: #### E RTPF, FT4, GLYHGB, ALB, TSH, B12, VD25, ECENZ #### [address] [address] Returner: Abelardo Castaneda MD ALT [Catalytic activity/Vol] 41 U/L Normal 5-41 [facility] Comment on above: Performed By: #### E RTPF, FT4, GLYHGB, ALB, TSH, B12, VD25, ECENZ #### [address] [address] Returner: Abelardo Castaneda MD AST [Catalytic activity/Vol] 27 U/L Normal <40 [facility] Comment on above: Performed By: #### E RTPF, FT4, GLYHGB, ALB, TSH, B12, VD25, ECENZ #### [address] [address] Returner: Abelardo Castaneda MD Bilirubin [Mass/Vol] 0.3 mg/dL Normal 0.3-1.2 [facility] Comment on above: Performed By: #### E RTPF, FT4, GLYHGB, ALB, TSH, B12, VD25, ECENZ #### [address] [address] Returner: Abelardo Castaneda MD Calcium [Mass/Vol] 8.8 mg/dL Normal 8.6-10.4 [facility] Comment on above: Performed By: #### E RTPF, FT4, GLYHGB, ALB, TSH, B12, VD25, ECENZ #### [address] [address] Returner: Abelardo Castaneda MD CO2 [Moles/Vol] 33 mmol/L High 20-31 [facility] Comment on above: Performed By: #### E RTPF, FT4, GLYHGB, ALB, TSH, B12, VD25, ECENZ #### [address] [address] Returner: Abelardo Castaneda MD Creatinine [Mass/Vol] 0.81 mg/dL Normal 0.70-1.20 [facility] Comment on above: Performed By: #### E RTPF, FT4, GLYHGB, ALB, TSH, B12, VD25, ECENZ #### [address] [address] Returner: Abelardo Castaneda MD GFR/1.73 sq M.predicted among non-blacks MDRD (S/P/Bld) [Vol rate/Area] mL/min/{1.73_m2} Normal >60 [facility] Comment on above: Result Comment: These results [...] GLYHGB, ALB, TSH, B12, VD25, ECENZ #### [facility] [address] [place] [phone] Returner: Abelardo Castaneda MD Glucose [Mass/Vol] 96 mg/dL Normal 70-99 [facility] Comment on above: Performed By: #### E RTPF, FT4, GLYHGB, ALB, TSH, B12, VD25, ECENZ #### [facility] [employer] [address] [place] [address] Returner: Abelardo Castaneda MD Protein [Mass/Vol] 5.6 g/dL Low 6.4-8.3 [facility] Comment on above: Performed By: #### E RTPF, FT4, GLYHGB, ALB, TSH, B12, VD25, ECENZ #### [facility] [address] [place] [phone] Returner: Abelardo Castaneda MD Urea nitrogen [Mass/Vol] 21 mg/dL Normal 8-23 [facility] Comment on above: Performed By: #### E RTPF, FT4, GLYHGB, ALB, TSH, B12, VD25, ECENZ #### [facility] [employer] [address] [place] [phone] Returner: Abelardo Castaneda MD Comprehensive Metabolic Pane l w/ Reflex to MGon 06-27-2022 Albumin [Mass/Vol] 3 g/dL Low 3.5 - 5.2 g/dL [facility] Albumin/Globulin [Mass ratio] 1.2 {ratio} 1.0 - 2.5 [facility] ALP [Catalytic activity/Vol] 80 U/L 40 - 129 U/L [facility] ALT [Catalytic activity/Vol] 41 U/L 5 - 41 U/L [facility] Anion gap [Moles/Vol] 5 mmol/L Low 9 - 17 mmol/L [facility] AST [Catalytic activity/Vol] 27 U/L NINF - 40 U/L [facility] Bilirubin [Mass/Vol] 0.3 mg/dL 0.3 - 1 .2 mg/dL [facility] Calcium [Mass/Vol] 8.8 mg/dL 8.6 - 10. 4 mg/dL [facility] Chloride [Moles/Vol] 101 mmol/L 98 - 10 7 mmol/L [facility] CO2 [Moles/Vol] 33 mmol/L High 20 - 31 mmol/L [facility] Creatinine [Mass/Vol] 0.81 mg/dL 0.70 - 1.20 mg/dL [facility] GFR/1.73 sq M.predicted MDRD (S/P/Bld) [Vol rate/Area] - PINF [facility] Comment on above: These results are [...] [Mass/Vol] 96 mg/dL 70 - 99 mg/dL [facility] Interpretation and review of laboratory results Abnormal [facility] Potassium [Moles/Vol] 4.7 mmol/L 3.7 - 5.3 mmol/L [facility] Protein [Mass/Vol] 5.6 g/dL Low 6.4 - 8.3 g/dL [facility] Sodium [Moles/Vol] 139 mmol/L 135 - 144 mmol/L [facility] Urea nitrogen [Mass/Vol] 21 mg/dL 8 - 23 mg/dL [facility] Albuminon 02-24-2023 Albumin [Mass/Vol] 3.5 g/dL Normal 3.5-5.2 [facility] Comment on above: Performed By: #### E RTPF, FT4, GLYHGB, ALB, TSH, B12, VD25, ECENZ #### [address] [phone] Returner: Abelardo Castaneda MD Albumin [Mass/Vol] 3.5 g/dL 3.5 - 5.2 g/dL [facility] Drug Scr, Abuse, Uron 2022 Amphetamine(s),Ur Negative Normal NEG [facility] Comment on above: Result Comment: (Positive cutoff 1000 ng/mL) Performed By: #### E RTPF, FT4, GLYHGB, ALB, TSH, B12, VD25, ECENZ #### [place] [phone] Returner: Abelardo Castaneda MD Barbiturate(s),Ur Negative Normal NEG [facility] Comment on above: Result Comment: (Positive cutoff 200 ng/mL) Performed By: #### E RTPF, FT4, GLYHGB, ALB, TSH, B12, VD25, ECENZ #### [facility] [employer] [address] [place] [address] [phone] Returner: Abelardo Castaneda MD Benzodiazepine(s) Negative Normal NEG [facility] Comment on above: Result Comment: (Positive cutoff 200 ng/mL) Performed By: #### E RTPF, FT4, GLYHGB, ALB, TSH, B12, VD25, ECENZ #### [facility] [employer] [address] [place] [address] [phone] Returner: Abelardo Castaneda MD Cannabinoid(s),Ur Positive Abnormal NEG [facility] Comment on above: Result Comment: (Positive cutoff 50 ng/mL) Performed By: #### E RTPF, FT4, GLYHGB, ALB, TSH, B12, VD25, ECENZ #### [facility] [address] [place] [phone] Returner: Abelardo Castaneda MD Cocaine Metabolite Negative Normal NEG [facility] Comment on above: Result Comment: (Positive cutoff 300 ng/mL) Performed By: #### E RTPF, FT4, GLYHGB, ALB, TSH, B12, VD25, ECENZ #### [facility] [employer] [address] [place] [phone] Returner: Abelardo Castaneda MD Fentanyl, Urine Positive Abnormal NEG [facility] Comment on above: Result Comment: (Positive cutoff 5 ng/ml) Performed By: #### E RTPF, FT4, GLYHGB, ALB, TSH, B12, VD25, ECENZ #### [address] [address] Returner: Abelardo Castaneda MD Interpretive Info Assay provides medical screening only. The absence of expected drug(s) and/or Normal [facility] Comment on above: Result Comment: meta bolite(s) may indicate diluted or adulterated urine, limitations of testing or timing of collection. Testing for legal purposes should be confirmed by another method. To request confirmation of test result, please call the lab within 7 days of sample submission. Performed By: #### E RTPF, FT4, GLYHGB, ALB, TSH, B12, VD25, ECENZ #### [facility] [address] [place] [phone] Returner: Abelardo Castaneda MD Methadone Ql (U) Negative Normal NEG [facility] Comment on above: Result Comment: (Positive cutoff 300 ng/mL) Performed By: #### E RTPF, FT4, GLYHGB, ALB, TSH, B12, VD25, ECENZ #### [facility] [employer] [address] [place] [phone] Returner: Abelardo Castaneda MD Opiate(s), Ur Positive Abnormal NEG [facility] Comment on above: Result Comment: (Positive cutoff 300 ng/mL) Performed By: #### E RTPF, FT4, GLYHGB, ALB, TSH, B12, VD25, ECENZ #### [employer] [address] [place] [address] [phone] Returner: Abelardo Castaneda MD Oxycodone, Urine Negative Normal NEG [facility] Comment on above: Result Comment: (Positive cutoff 100 ng/mL) Performed By: #### E RTPF, FT4, GLYHGB, ALB, TSH, B12, VD25, ECENZ #### [employer] [address] [place] [address] [phone] Returner: Abelardo Castaneda MD Phencyclidine, Ur Negative Normal NEG [facility] Comment on above: Result Comment: (Positive cutoff 25 ng/mL) Performed By: #### E RTPF, FT4, GLYHGB, ALB, TSH, B12, VD25, ECENZ #### [employer] [address] [place] [address] [phone] Returner: Abelardo Castaneda MD Drug screen multi urineon [...] 300 ng/mL) Oxycodone Screen, Ur Negative NEGATIVE [facility] Comment on above: (Positive cutoff 100 ng/mL) Phencyclidine, Urine Negative NEGATIVE [facility] Comment on above: (Positive cutoff 25 ng/mL) Test Information Assay provides medical screening only. The absence of expected drug(s) and/or metabolite(s) may indicate diluted or adulterated urine, limitations of testing or timing of collection. [facility] Comment on above: Testing for legal pu rposes should be confirmed by another method. To request confirmation of test result, please call the lab within 7 days of sample submission. [facility] Hemoglobin A1Con 06-26-2022 Glucose [Mass/Vol] 134 mg/dL Normal [facility] Comment on above: Result Comment: The ADA and AACC recommend providing the estimated average glucose result to permit better patient understanding of their HBA1c result. Performed By: #### E RTPF, FT4, GLYHGB, ALB, TSH, B12, VD25, ECENZ #### [facility] [address] [place] [phone] Returner: Abelardo Castaneda MD HbA1c (Bld) [Mass fraction] 6.3 % High 4.0-6.0 [facility] Comment on above: Performed By: #### E RTPF, FT4, GLYHGB, ALB, TSH, B12, VD25, ECENZ #### [facility] [employer] [address] [place] [address] [phone] Returner: Abelardo Castaneda MD Average glucose Estimated from glycated hemoglobin (Bld) [Mass/Vol] 134 mg/dL [facility] Comment on above: The ADA and AACC rec ommend providing the estimated average glucose result to permit better patient understanding of their HBA1c result. HbA1c (Bld) [Mass fraction] 6.3 % High 4.0 - 6.0 % [facility] Interpretation and review of laboratory results Abnormal [facility] No Panel Informationon 06-26 Interpretation and review of laboratory results Abnormal [facility] Radiology Study observation (narrative) [facility] Work Phone: T4, Freeon 06-26-2022 Free T4 [Mass/Vol] 1.38 ng/dL 0.93 - 1. 70 ng/dL [facility] TROP/MYOGLOBINon 06-26-2022 Myoglobin [Mass/Vol] 27 ng/mL Low 28 - 72 ng/mL [facility] Troponin I.cardiac DL <= 0.01 ng/mL [Mass/Vol] 16 ng/L 0 - 22 ng/L [facility] Comment on above: High Sensitivity Tro ponin values cannot be compared with other Troponin methodologies. TSHon 06-26-2022 TSH Qn 2.95 m[IU]/L [facility] TYPE AND SCREENon 06-26-2022 ABO/Rh Positive [facility] Arm Band Number BE [id number] [facility] Expiration Date 06/29/2022,2354 [facility] Thyroid Stim. Horm.on 2022 Thyroid Stim. Horm. 2.95 uIU/mL Normal 0.30-5.00 [facility] Comment on above: Performed By: #### E RTPF, FT4, GLYHGB, ALB, TSH, B12, VD25, ECENZ #### [facility] [address] [place] [phone] Returner: Abelardo Castaneda MD Thyroxine, Freeon 06-26-2022 Thyroxine, Free 1.38 ng/dL Normal 0.93-1.70 [facility] Comment on above: Performed By: #### E RTPF, FT4, GLYHGB, ALB, TSH, B12, VD25, ECENZ #### [facility] [employer] [address] [place] [phone] Returner: Abelardo Castaneda MD Trauma Panelon 06-26-2022 Anion gap [Moles/Vol] 11 mmol/L 9 - 17 mmol/L [facility] aPTT Coag (Bld) [Time] 22.1 s [facility] Comment on above: IV Heparin Therapy Range: 48.6-77.8 Blood Bank Specimen BILL FOR SERVICES PERFORMED [facility] Carboxyhemoglobin 6.3 % High 0 - 5 % [facility] Comment on above: Reference Range: Non-Smokers 0-2% Average Smoker 2-4% Heavy Smoker <10% Chloride [Moles/Vol] 100 mmol/L 98 - 10 7 mmol/L [facility] CO2 [Moles/Vol] 28 mmol/L 20 - 31 mmol/L [facility] Creatinine [Mass/Vol] 0.74 mg/dL 0.70 - 1.20 mg/dL [facility] Ethanol [Mass/Vol] mg/dL NINF - 10 mg/dL [facility] Ethanol percent <0.010 NINF - 0.010 % [facility] [employer] FIO2 Unknown [facility] GFR/1.73 sq M.predicted MDRD (S/P/Bld) [Vol rate/Area] - PINF [facility] Comment on above: These results are [...] 145 mg/dL High 70 - 99 mg/dL [facility] hCG Qual PT IS MALE [facility] HCO3 (Bld) [Moles/Vol] 30.9 mmol/L High 24 - 30 mmol/L [facility] Hematocrit (Bld) [Volume fraction] 49.4 % 40.7 - 50.3 % [facility] Hemoglobin (Bld) [Mass/Vol] 15.4 g/dL 13.0 - 17.0 g/dL [facility] INR Coag (PPP) [Relative time] 1.0 {INR} [facility] Comment on above: Therapeutic Range: Moderate Anticoagulant Intensity: INR = 2.0-3.0 High Anticoagulant Intensity: INR = 2.5-3.5 Interpretation and review of laboratory results Abnormal [facility] MCH (RBC) [Entitic mass] 31.0 pg 25.2 - 33.5 pg [facility] MCHC (RBC) [Mass/Vol] 31.2 g/dL 28.4 - 34.8 g/dL [facility] MCV (RBC) [Entitic vol] 99.6 fL 82.6 - 102.9 fL [facility] NRBC Automated 0.0 0.0 per 100 WBC [facility] Oxygen saturation in Blood 67.6 % 60.0 - 85.0 % [facility] pCO2, Colin 50.3 [facility] pH, Colin 7.405 7.320 - 7.420 [facility] Platelet distribution width (Bld) [Ratio] 13.4 % 11.8 - 14.4 % [facility] Platelet mean volume (Bld) [Entitic vol] 11.4 fL 8.1 - 13.5 fL [facility] Platelets (Bld) [#/Vol] 201 10*3/uL [facility] pO2, Colin 32.4 [facility] Positive Base Excess, Colin 5.2 mmol/L High 0.0 - 2.0 mmol/L [facility] Potassium [Moles/Vol] 4.8 mmol/L 3.7 - 5.3 mmol/L [facility] PT Coag (PPP) [Time] 10.8 s [facility] Pt Temp 37.0 [facility] RBC (Bld) [#/Vol] 4.96 10*6/uL 4.21 - 5.7 7 m/uL [facility] Sodium [Moles/Vol] 139 mmol/L 135 - 144 mmol/L [facility] Urea nitrogen [Mass/Vol] 19 mg/dL 8 - 23 mg/dL [facility] WBC (Bld) [#/Vol] 9.6 10*3/uL [facility] Trauma Profileon 06-26-2022 Potassium [Moles/Vol] 4.8 mmol/L Normal 3.7-5.3 [facility] Comment on above: Performed By: #### E RTPF, FT4, GLYHGB, ALB, TSH, B12, VD25, ECENZ #### [address] [address] Returner: Abelardo Castaneda MD Anion gap [Moles/Vol] 11 mmol/L Normal 9-17 [facility] Comment on above: Performed By: #### E RTPF, FT4, GLYHGB, ALB, TSH, B12, VD25, ECENZ #### [address] [address] Returner: Abelardo Castaneda MD Chloride [Moles/Vol] 100 mmol/L Normal 98-107 [facility] Comment on above: Performed By: #### E RTPF, FT4, GLYHGB, ALB, TSH, B12, VD25, ECENZ #### [address] [address] Returner: Abelardo Castaneda MD CO2 [Moles/Vol] 28 mmol/L Normal 20-31 [facility] Comment on above: Performed By: #### E RTPF, FT4, GLYHGB, ALB, TSH, B12, VD25, ECENZ #### [address] [address] Returner: Abelardo Castaneda MD Creatinine [Mass/Vol] 0.74 mg/dL Normal 0.70-1.20 [facility] Comment on above: Performed By: #### E RTPF, FT4, GLYHGB, ALB, TSH, B12, VD25, ECENZ #### [address] [address] Returner: Abelardo Castaneda MD GFR/1.73 sq M.predicted among non-blacks MDRD (S/P/Bld) [Vol rate/Area] mL/min/{1.73_m2} Normal >60 [facility] Comment on above: Result Comment: These results [...] GLYHGB, ALB, TSH, B12, VD25, ECENZ #### [address] [address] Returner: Abelardo Castaneda MD Glucose [Mass/Vol] 145 mg/dL High 70-99 [facility] Comment on above: Performed By: #### E RTPF, FT4, GLYHGB, ALB, TSH, B12, VD25, ECENZ #### [address] [address] Returner: Abelardo Castaneda MD Sodium [Moles/Vol] 139 mmol/L Normal 135-144 [facility] Comment on above: Performed By: #### E RTPF, FT4, GLYHGB, ALB, TSH, B12, VD25, ECENZ #### [address] [address] Returner: Abelardo Castaneda MD Urea nitrogen [Mass/Vol] 19 mg/dL Normal 8-23 [facility] Comment on above: Performed By: #### E RTPF, FT4, GLYHGB, ALB, TSH, B12, VD25, ECENZ #### [address] [address] Returner: Abelardo Castaneda MD Ethanol [Mass/Vol] mg/dL Normal <10 [facility] Comment on above: Performed By: #### E RTPF, FT4, GLYHGB, ALB, TSH, B12, VD25, ECENZ #### [address] [place] [id number] Returner: Abelardo Castaneda MD Ethanol percent <0.010 Normal <0.010 [facility] Comment on above: Performed By: #### E RTPF, FT4, GLYHGB, ALB, TSH, B12, VD25, ECENZ #### [place] [phone] Returner: Abelardo Castaneda MD aPTT Coag (Bld) [Time] 22.1 s Normal 20.5-30.5 [facility] Comment on above: Result Comment: IV Heparin Therapy Range: 48.6-77.8 Performed By: #### E RTPF, FT4, GLYHGB, ALB, TSH, B12, VD25, ECENZ #### [place] [address] Returner: Abelardo Castaneda MD INR Coag (PPP) [Relative time] 1.0 {INR} Normal [facility] Comment on above: Result Comment: Therapeutic Range: Moderate Anticoagulant Intensity: INR = 2.0-3.0 High Anticoagulant Intensity: INR = 2.5-3.5 Performed By: #### E RTPF, FT4, GLYHGB, ALB, TSH, B12, VD25, ECENZ #### [place] [phone] Returner: Abelardo Castaneda MD PT Coag (PPP) [Time] 10.8 s Normal 9.1-12.3 [facility] Comment on above: Performed By: #### E RTPF, FT4, GLYHGB, ALB, TSH, B12, VD25, ECENZ #### [address] [phone] Returner: Abelardo Castaneda MD Body Temp. 37.0 Normal [facility] Comment on above: Performed By: #### E RTPF, FT4, GLYHGB, ALB, TSH, B12, VD25, ECENZ #### [address] [address] Returner: Abelardo Castaneda MD Carboxy Hgb 6.3 % High 0-5 [facility] Comment on above: Result Comment: Reference Range: Non-Smokers 0-2% Average Smoker 2-4% Heavy Smoker <10% Performed By: #### E RTPF, FT4, GLYHGB, ALB, TSH, B12, VD25, ECENZ #### [address] [address] Returner: Abelardo Castaneda MD FIO2 Unknown Normal [facility] Comment on above: Performed By: #### E RTPF, FT4, GLYHGB, ALB, TSH, B12, VD25, ECENZ #### [address] [address] Returner: Abelardo Castaneda MD HCO3 (Bld) [Moles/Vol] 30.9 mmol/L High 24-30 [facility] Comment on above: Performed By: #### E RTPF, FT4, GLYHGB, ALB, TSH, B12, VD25, ECENZ #### [address] [address] Returner: Abelardo Castaneda MD Oxygen saturation in Blood 67.6 % Normal 60.0-85.0 [facility] Comment on above: Performed By: #### E RTPF, FT4, GLYHGB, ALB, TSH, B12, VD25, ECENZ #### [address] [address] Returner: Abelardo Castaneda MD pCO2 50.3 mm Hg Normal 39-55 [facility] Comment on above: Performed By: #### E RTPF, FT4, GLYHGB, ALB, TSH, B12, VD25, ECENZ #### [address] [phone] Returner: Abelardo Castaneda MD pH (Bld) 7.405 [pH] Normal 7.320-7.420 [facility] Comment on above: Performed By: #### E RTPF, FT4, GLYHGB, ALB, TSH, B12, VD25, ECENZ #### [address] [address] Returner: Abelardo Castaneda MD pO2 32.4 mm Hg Normal 30-50 [facility] Comment on above: Performed By: #### E RTPF, FT4, GLYHGB, ALB, TSH, B12, VD25, ECENZ #### [address] [address] Returner: Abelardo Castaneda MD Positive Base Excess 5.2 mmol/L High 0.0-2.0 [facility] Comment on above: Performed By: #### E RTPF, FT4, GLYHGB, ALB, TSH, B12, VD25, ECENZ #### [address] [address] Returner: Abelardo Castaneda MD Erythrocyte distribution width (RBC) [Ratio] 13.4 % Normal 11.8-14.4 [facility] Comment on above: Performed By: #### E RTPF, FT4, GLYHGB, ALB, TSH, B12, VD25, ECENZ #### [facility] [employer] [address] [place] [address] Returner: Abelardo Castaneda MD Hematocrit (Bld) [Volume fraction] 49.4 % Normal 40.7-50.3 [facility] Comment on above: Performed By: #### E RTPF, FT4, GLYHGB, ALB, TSH, B12, VD25, ECENZ #### [address] [address] Returner: Abelardo Castaneda MD Hemoglobin (Bld) [Mass/Vol] 15.4 g/dL Normal 13.0-17.0 [facility] Comment on above: Performed By: #### E RTPF, FT4, GLYHGB, ALB, TSH, B12, VD25, ECENZ #### [address] [address] Returner: Abelardo Castaneda MD MCH (RBC) [Entitic mass] 31.0 pg Normal 25.2-33.5 [facility] Comment on above: Performed By: #### E RTPF, FT4, GLYHGB, ALB, TSH, B12, VD25, ECENZ #### [address] [address] Returner: Abelardo Castaneda MD MCHC (RBC) [Mass/Vol] 31.2 g/dL Normal 28.4-34.8 [facility] Comment on above: Performed By: #### E RTPF, FT4, GLYHGB, ALB, TSH, B12, VD25, ECENZ #### [address] [phone] Returner: Abelardo Castaneda MD MCV (RBC) [Entitic vol] 99.6 fL Normal 82.6-102.9 [facility] Comment on above: Performed By: #### E RTPF, FT4, GLYHGB, ALB, TSH, B12, VD25, ECENZ #### [address] [address] Returner: Abelardo Castaneda MD NRBC Automated 0.0 per 100 WBC Normal 0.0 [facility] Comment on above: Performed By: #### E RTPF, FT4, GLYHGB, ALB, TSH, B12, VD25, ECENZ #### [address] [phone] Returner: Abelardo Castaneda MD Platelet mean volume (Bld) [Entitic vol] 11.4 fL Normal 8.1-13.5 [facility] Comment on above: Performed By: #### E RTPF, FT4, GLYHGB, ALB, TSH, B12, VD25, ECENZ #### [address] [address] Returner: Abelardo Castaneda MD Platelets (Bld) [#/Vol] 201 10*3/uL Normal 138-453 [facility] Comment on above: Performed By: #### E RTPF, FT4, GLYHGB, ALB, TSH, B12, VD25, ECENZ #### [address] [address] Returner: Abelardo Castaneda MD RBC (Bld) [#/Vol] 4.96 10*6/uL Normal 4.21-5.77 [facility] Comment on above: Performed By: #### E RTPF, FT4, GLYHGB, ALB, TSH, B12, VD25, ECENZ #### [address] [address] Returner: Abelardo Castaneda MD WBC (Bld) [#/Vol] 9.6 10*3/uL Normal 3.5-11.3 [facility] Comment on above: Performed By: #### E RTPF, FT4, GLYHGB, ALB, TSH, B12, VD25, ECENZ #### [address] [address] Returner: Abelardo Castaneda MD Blood Bank BILL FOR SERVICES PERFORMED Normal [facility] Comment on above: Performed By: #### E RTPF, FT4, GLYHGB, ALB, TSH, B12, VD25, ECENZ #### [address] [address] Returner: Abelardo Castaneda MD Trop/Myoglobinon 06-26-2022 Myoglobin [Mass/Vol] 27 ng/mL Low 28-72 [facility] Comment on above: Performed By: #### E RTPF, FT4, GLYHGB, ALB, TSH, B12, VD25, ECENZ #### [facility] [address] [place] [address] Returner: Abelardo Castaneda MD Troponin, High Sens 16 ng/L Normal 0-22 [facility] Comment on above: Result Comment: High Sensitivity Troponin values cannot be compared with other Troponin methodologies. Performed By: #### E RTPF, FT4, GLYHGB, ALB, TSH, B12, VD25, ECENZ #### [facility] [address] [place] [address] [phone] Returner: Abelardo Castaneda MD Type + Screenon 06-26-2022 Type + Screen Sample Expiration 06/29/2022,2359 Arm Band Number BE [id number] ABO/Rh(D) O POSITIVE Antibody Screen NEGATIVE Normal [facility] Comment on above: Performed By: #### T YS #### [facility] [address] [place] [address] [phone] Returner: Abelardo Castaneda MD Vitamin B12on 06-26-2022 Cobalamin (Vitamin B12) [Mass/Vol] 531 pg/mL Normal 232-1245 [facility] Comment on above: Performed By: #### E RTPF, FT4, GLYHGB, ALB, TSH, B12, VD25, ECENZ #### [facility] [address] [place] [address] Returner: Abelardo Castaneda MD Cobalamin (Vitamin B12) [Mass/Vol] 531 pg/mL 232 - 1245 pg/mL [facility] [employer] Vitamin D 25 Hydroxyon 06-26 25-hydroxyvitamin D3 [Mass/Vol] 14.5 ng/mL Low 29.9 - PINF ng/mL [facility] [employer] Comment on above: Reference Range: Vitamin D status Range Deficiency <20 ng/mL Mild Deficiency 20-30 ng/mL Sufficiency 30-100 ng/mL Toxicity >100 ng/mL Vitamin D 25 OHon 06-26-2022 Vitamin D 25 OH 14.5 ng/mL Low >29.9 [facility] Comment on above: Result Comment: Reference Range: Vitamin D status Range Deficiency <20 ng/mL Mild Deficiency 20-30 ng/mL Sufficiency 30-100 ng/mL Toxicity >100 ng/mL Performed By: #### E RTPF, FT4, GLYHGB, ALB, TSH, B12, VD25, ECENZ #### [facility] [employer] [address] [place] [address] Returner: Abelardo Castaneda MD XR CHEST PORTABLEon 06-26-19 [...] Boris Bocanegra MD 06/26/22 Final result Normal [facility] No acute process. [facility] EXAMINATION: ONE XRAY VIEW OF THE CHEST 06/26/2022 10:26 am COMPARISON: None. HISTORY: ORDERING SYSTEM PROVIDED HISTORY: burn, copd TECHNOLOGIST PROVIDED HISTORY: burn, copd FINDINGS: The lungs are hyperinflated without acute focal process. There is no effusion or pneumothorax. The cardiomediastinal silhouette is without acute process. The osseous structures are without acute process. [facility] Boris Bocanegra MD - 06/26/2022 EXAMINATION: [...] CHEST PORTABLEOrdered By: Boris Bocanegra on 06-26-2022 [employer] Phone: XR HAND LEFT (MIN 3 VIEWS)on [...] Stan Ruiz MD 06/26/22 Final result Normal [facility] No acute abnormality identified. Chronic appearing deformities of the 4th ray. [facility] EXAMINATION: THREE XRAY VIEWS OF THE LEFT HAND 06/26/2022 10:26 am COMPARISON: None. HISTORY: ORDERING SYSTEM PROVIDED HISTORY: bruising, fell TECHNOLOGIST PROVIDED HISTORY: bruising, fell FINDINGS: Chronic deformity of the 4th metacarpal is seen. Sharp flexion deformity at the proximal interphalangeal joint of the ring finger noted. No acute fracture is identified. No radiopaque foreign bodies are detected. [facility] Stan Ruiz MD - 06/26/2022 EXAMINATION: [...] Chronic appearing deformities of the 4th ray. [employer] Phone: XR HAND LEFT (MIN 3 VIEWS)Or dered By: Stan Ruiz on 06-26-2022 [facility] [employer] Work Phone: CNCOon 06-23-2022 CNCO Letter Text Normal [facility] Basic metabolic 2000 panelon 06-21-2022 Anion gap [Moles/Vol] 6 mmol/L Low 9-18 [facility] Comment on above: Order Comment: Speci men Type: BLOOD SPECIMEN Ordering Facility: [facility] Address: [address] Performed By: #### 3 4528-0, 30315-1 #### [facility] CLIA [id number] [address] [place] [address] [place] Calcium [Mass/Vol] 8.5 mg/dL Normal 8.5-10.2 [facility] Comment on above: Order Comment: Speci men Type: BLOOD SPECIMEN Ordering Facility: [facility] Address: [address] [place], [place] [address] Performed By: #### 3 4528-0, 57327-3 #### [facility] CLIA [id number] [address] [place] [address] [place] Chloride [Moles/Vol] 104 mmol/L Normal 97-105 [facility] Comment on above: Order Comment: Speci men Type: BLOOD SPECIMEN Ordering Facility: [facility] Address: [address] Performed By: #### 3 4528-0, 38941-5 #### [facility] CLIA [id number] [address] [place] [address] [place] CO2 [Moles/Vol] 31 mmol/L High 22-30 [facility] Comment on above: Order Comment: Speci men Type: BLOOD SPECIMEN Ordering Facility: [facility] Address: [address] Performed By: #### 3 4528-0, 42772-9 #### [facility] CLIA [id number] [address] [place] [address] [place] Creatinine [Mass/Vol] 0.76 mg/dL Normal 0.73-1.22 [facility] Comment on above: Order Comment: Leighann suazo Type: BLOOD SPECIMEN Ordering Facility: [facility] Address: [address] [place] [address] Performed By: #### 3 4528-0, 44069-1 #### [facility] CLIA [id number] [address] [place] [address] [place] ESTIMATED GLOMERULAR FILTRATION RATE 99 mL/min/1.73m??? Normal >=60 [facility] Comment on above: Order Comment: Leighann suazo Type: BLOOD SPECIMEN Ordering Facility: [facility] Address: [address] [place] [address] Result Comment: Madison mated Glomerular Filtration Rate [...] actual GFR. Performed By: #### 3 4528-0, 79768-1 #### [facility] CLIA [id number] [address] [place] [address] [place] Glucose [Mass/Vol] 120 mg/dL High 74-99 [facility] Comment on above: Order Comment: Leighann suazo Type: BLOOD SPECIMEN Ordering Facility: [facility] Address: [address] [place] [address] Result Comment: The Stateless Diabetes Association (ADA) provides guidance for cutoff [...] Standards of Medical Care in Diabetes 2016, Stateless Diabetes Association. Diabetes Care. 2016.39(Suppl 1). Performed By: #### 3 4528-0, 65384-8 #### [facility] CLIA [id number] [address] [place] [address] [place] Potassium [Moles/Vol] 4.7 mmol/L Normal 3.7-5.1 [facility] Comment on above: Order Comment: Speci men Type: BLOOD SPECIMEN Ordering Facility: [facility] Address: [address] [place] [address] Performed By: #### 3 4528-0, 47778-2 #### [facility] CLIA [id number] [address] [place] [address] [place] Sodium [Moles/Vol] 141 mmol/L Normal 136-144 [facility] Comment on above: Order Comment: Speci men Type: BLOOD SPECIMEN Ordering Facility: [facility] Address: [address] [place] [address] Performed By: #### 3 4528-0, 14958-8 #### [facility] CLIA [id number] [address] [place] [address] [place] Urea nitrogen [Mass/Vol] 19 mg/dL Normal 9-24 [facility] Comment on above: Order Comment: Speci men Type: BLOOD SPECIMEN Ordering Facility: [facility] Address: [address] Performed By: #### 3 4528-0, 68686-1 #### [facility] CLIA [id number] [address] [place] [address] [place] CBC panel Auto (Bld)on 06-21 Erythrocyte distribution width (RBC) [Ratio] 13.5 % Normal 11.5-15.0 [facility] Comment on above: Order Comment: Speci men Type: BLOOD SPECIMEN Ordering Facility: [facility] Address: [address] [place], [place] [address] Performed By: #### 3 4528-0, 59432-8 #### [facility] CLIA [id number] [address] [place] [address] [place] Hematocrit (Bld) [Volume fraction] 43.8 % Normal 39.0-51.0 [facility] Comment on above: Order Comment: Speci men Type: BLOOD SPECIMEN Ordering Facility: [facility] Address: [address] [place], [place] [address] Performed By: #### 3 4528-0, 91148-6 #### [facility] CLIA [id number] [address] [place] [address] [place] Hemoglobin (Bld) [Mass/Vol] 14.2 g/dL Normal 13.0-17.0 [facility] Comment on above: Order Comment: Speci men Type: BLOOD SPECIMEN Ordering Facility: [facility] Address: [address] [place], [place] [address] Performed By: #### 3 4528-0, 15806-1 #### [facility] CLIA [id number] [address] [place] [address] [place] MCH (RBC) [Entitic mass] 30.9 pg Normal 26.0-34.0 [facility] Comment on above: Order Comment: Speci men Type: BLOOD SPECIMEN Ordering Facility: [facility] Address: [address] [place], [place] [address] Performed By: #### 3 4528-0, 85010-9 #### [facility] CLIA [id number] [address] [place] [address] [place] MCHC (RBC) [Mass/Vol] 32.4 g/dL Normal 30.5-36.0 [facility] Comment on above: Order Comment: Speci men Type: BLOOD SPECIMEN Ordering Facility: [facility] Address: [address] [place] [address] Performed By: #### 3 4528-0, 45615-9 #### [facility] CLIA [id number] [address] [place] [address] [place] MCV (RBC) [Entitic vol] 95.2 fL Normal 80.0-100.0 [facility] Comment on above: Order Comment: Speci men Type: BLOOD SPECIMEN Ordering Facility: [facility] Address: [address] Performed By: #### 3 4528-0, 91143-2 #### [facility] CLIA [id number] [address] [place] [address] [place] Nucleated RBC (Bld) [#/Vol] 10*3/uL Normal <0.01 [facility] Comment on above: Order Comment: Speci men Type: BLOOD SPECIMEN Ordering Facility: [facility] Address: [address] Performed By: #### 3 4528-0, 77147-9 #### [facility] CLIA [id number] [address] [place] [address] [place] Platelet mean volume (Bld) [Entitic vol] 11.8 fL Normal 9.0-12.7 [facility] Comment on above: Order Comment: Speci men Type: BLOOD SPECIMEN Ordering Facility: [facility] Address: [address] [place] [address] Performed By: #### 3 4528-0, 19730-7 #### [facility] CLIA [id number] [address] [place] [address] [place] Platelets (Bld) [#/Vol] 190 10*3/uL Normal 150-400 [facility] Comment on above: Order Comment: Speci men Type: BLOOD SPECIMEN Ordering Facility: [facility] Address: [address] [place] [address] Performed By: #### 3 4528-0, 89963-2 #### [facility] CLIA [id number] [address] [place] [address] [place] RBC (Bld) [#/Vol] 4.60 10*6/uL Normal 4.20-6.00 [facility] Comment on above: Order Comment: Speci men Type: BLOOD SPECIMEN Ordering Facility: [facility] Address: [address] [place] [address] Performed By: #### 3 4528-0, 58516-2 #### [facility] CLIA [id number] [address] [place] [address] [place] WBC (Bld) [#/Vol] 15.28 10*3/uL High 3.70-11.00 [facility] Comment on above: Order Comment: Speci men Type: BLOOD SPECIMEN Ordering Facility: [facility] Address: [address] [place] [address] Performed By: #### 3 4528-0, 95654-1 #### [facility] CLIA [id number] [address] [place] [address] [place] CNDSon 06-21-2022 CNDS HNO ID: [id number] Author: Akil Garza PA-C Service: Hospital Medicine Author Type: Physician Pump Operator [employer] Type: Discharge Summary Filed: 06/21/2022 1:17 PM Note Text: Attestation signed by Lina Ling MD at 06/21/2022 1:30 PM I have seen and evaluated the patient and discussed the case with the licensed prosthetist . I agree with the assessment and [...] if he wants to travel to any [facility] site. Has been referred to local truck driving. Number provided for him to make an [...] if he wants to establish care at [facility] since there is not a location close to his house. Hx of PAD with stents. Denies hx of [place]. Believes he was on statin in past and did not follow up. Started on atorvastatin. Instructed patient to follow up with both pulmonology and PCP as soon as possible. Number to scheduled with [facility] provided. OPERATIONS/PROCEDURE DURING THIS HOSPITALIZATION: * No surgery found * N/A CONSULTS DURING HOSPITALIZATION: Treatment Team: Attending Provider: Lina Ling MD Primary Service: [facility] 3 Physician Pump Operator [employer]: Akil Garza PA-C No orders of the [...] UP APPOINT (more content not included)... Normal [facility] NURSING PROGon 06-21-2022 NURSING PROG HNO ID: [id number] Author: Pearl Hendrix RN Service: ? Author Type: Registered Nurse Type: Nursing Progress Note Filed: 06/21/2022 3:37 PM Note Text: Other: Discharge paperwork and medications explained. Patient stated he had no questions. IV removed. Transport placed for patient. Normal [facility] Bacteria Bld Culton 06-20-19 23 Bacteria identified Cx Nom (Bld) CULTURE, BLOOD: No growth 5 days Normal [facility] Comment on above: Performed By: #### 3 4528-0, 32251-8 #### [facility] CLIA [id number] [address] [place] [address] [place] Bacteria Spec Resp Culton Bacteria identified Respiratory culture Nom (Unsp spec) ORGANISM ID: 1 Rare Pseudomonas aeruginosa Insignificant colony count. No further workup. ORGANISM ID: 2 Moderate normal respiratory alexandru GRAM STAIN: Moderate Gram positive cocci Many Polymorphonuclear leukocytes Abnormal [facility] Comment on above: Performed By: #### 3 4528-0, 35278-3 #### [facility] CLIA [id number] [address] [place] [address] [place] CBC W Auto Differential pane l (Bld)on 06-20-2022 Basophils (Bld) [#/Vol] 0.07 10*3/uL Normal <0.11 [facility] Comment on above: Order Comment: Speci men Type: BLOOD SPECIMEN Ordering Facility: [facility] Address: [address] [place] [address] Performed By: #### 5 7021-8 #### [facility] CLIA [id number] [address] [place] [address] [place] Basophils/100 WBC (Bld) 0.4 % Normal [facility] Comment on above: Order Comment: Speci men Type: BLOOD SPECIMEN Ordering Facility: [facility] Address: [address] Performed By: #### 5 7021-8 #### [facility] CLIA [id number] [address] [place] [address] [place] Differential cell count method Nom (Bld) Auto Normal [facility] Comment on above: Order Comment: Speci men Type: BLOOD SPECIMEN Ordering Facility: [facility] Address: [address] [place] [address] Performed By: #### 5 7021-8 #### [facility] CLIA [id number] [address] [place] [address] [place] Eosinophils (Bld) [#/Vol] 10*3/uL Normal <0.46 [facility] Comment on above: Order Comment: Speci men Type: BLOOD SPECIMEN Ordering Facility: [facility] Address: [address] [place] [address] Performed By: #### 5 7021-8 #### [facility] CLIA [id number] [address] [place] [address] [place] Eosinophils/100 WBC (Bld) 0.1 % Normal [facility] Comment on above: Order Comment: Speci men Type: BLOOD SPECIMEN Ordering Facility: [facility] Address: [address] [place], [place] [address] Performed By: #### 5 7021-8 #### [facility] CLIA [id number] [address] [place] [address] [place] Erythrocyte distribution width (RBC) [Ratio] 13.5 % Normal 11.5-15.0 [facility] Comment on above: Order Comment: Speci men Type: BLOOD SPECIMEN Ordering Facility: [facility] Address: [address] [place], [place] [address] Performed By: #### 5 7021-8 #### [facility] CLIA [id number] [address] [place] [address] [place] Hematocrit (Bld) [Volume fraction] 52.4 % High 39.0-51.0 [facility] Comment on above: Order Comment: Speci men Type: BLOOD SPECIMEN Ordering Facility: [facility] Address: [address] [address] Performed By: #### 5 7021-8 #### [facility] CLIA [id number] [address] [place] [address] [place] Hemoglobin (Bld) [Mass/Vol] 17.2 g/dL High 13.0-17.0 [facility] Comment on above: Order Comment: Speci men Type: BLOOD SPECIMEN Ordering Facility: [facility] Address: [address] Performed By: #### 5 7021-8 #### [facility] CLIA [id number] [address] [place] [address] [place] Immature granulocytes (Bld) [#/Vol] 0.19 10*3/uL High <0.10 [facility] Comment on above: Order Comment: Speci men Type: BLOOD SPECIMEN Ordering Facility: [facility] Address: [address] Performed By: #### 5 7021-8 #### [facility] CLIA [id number] [address] [place] [address] [place] Immature granulocytes/100 WBC (Bld) 1.0 % Normal [facility] Comment on above: Order Comment: Speci men Type: BLOOD SPECIMEN Ordering Facility: [facility] Address: [address] [place] [address] Performed By: #### 5 7021-8 #### [facility] CLIA [id number] [address] [place] [address] [place] Lymphocytes (Bld) [#/Vol] 1.30 10*3/uL Normal 1.00-4.00 [facility] Comment on above: Order Comment: Speci men Type: BLOOD SPECIMEN Ordering Facility: [facility] Address: [address] [place] [address] Performed By: #### 5 7021-8 #### [facility] CLIA [id number] [address] [place] [address] [place] Lymphocytes/100 WBC (Bld) 7.0 % Normal [facility] Comment on above: Order Comment: Speci men Type: BLOOD SPECIMEN Ordering Facility: [facility] Address: [address] [place], [place] [address] Performed By: #### 5 7021-8 #### [facility] CLIA [id number] [address] [place] [address] [place] MCH (RBC) [Entitic mass] 31.0 pg Normal 26.0-34.0 [facility] Comment on above: Order Comment: Speci men Type: BLOOD SPECIMEN Ordering Facility: [facility] Address: [address] [place], [place] [address] Performed By: #### 5 7021-8 #### [facility] CLIA [id number] [address] [place] [address] [place] MCHC (RBC) [Mass/Vol] 32.8 g/dL Normal 30.5-36.0 [facility] Comment on above: Order Comment: Speci men Type: BLOOD SPECIMEN Ordering Facility: [facility] Address: [address] [place], [place] [address] Performed By: #### 5 7021-8 #### [facility] CLIA [id number] [address] [place] [address] [place] MCV (RBC) [Entitic vol] 94.4 fL Normal 80.0-100.0 [facility] Comment on above: Order Comment: Speci men Type: BLOOD SPECIMEN Ordering Facility: [facility] Address: [address] [place], [place] [address] Performed By: #### 5 7021-8 #### [facility] CLIA [id number] [address] [place] [address] [place] Monocytes (Bld) [#/Vol] 0.56 10*3/uL Normal <0.87 [facility] Comment on above: Order Comment: Speci men Type: BLOOD SPECIMEN Ordering Facility: [facility] Address: [address] [place] [address] Performed By: #### 5 7021-8 #### [facility] CLIA [id number] [address] [place] [address] [place] Monocytes/100 WBC (Bld) 3.0 % Normal [facility] Comment on above: Order Comment: Speci men Type: BLOOD SPECIMEN Ordering Facility: [facility] Address: [address] Performed By: #### 5 7021-8 #### [facility] CLIA [id number] [address] [place] [address] [place] Neutrophils (Bld) [#/Vol] 16.47 10*3/uL High 1.45-7.50 [facility] Comment on above: Order Comment: Speci men Type: BLOOD SPECIMEN Ordering Facility: [facility] Address: [address] [place] [address] Performed By: #### 5 7021-8 #### [facility] CLIA [id number] [address] [place] [address] [place] Neutrophils/100 WBC (Bld) 88.5 % Normal [facility] Comment on above: Order Comment: Speci men Type: BLOOD SPECIMEN Ordering Facility: [facility] Address: [address] [place] [address] Performed By: #### 5 7021-8 #### [facility] CLIA [id number] [address] [place] [address] [place] Nucleated RBC (Bld) [#/Vol] 10*3/uL Normal <0.01 [facility] Comment on above: Order Comment: Speci men Type: BLOOD SPECIMEN Ordering Facility: [facility] Address: [address] [place] [address] Performed By: #### 5 7021-8 #### [facility] CLIA [id number] [address] [place] [address] [place] Nucleated RBC/100 WBC (Bld) [Ratio] 0.0 /100 WBC Normal [facility] Comment on above: Order Comment: Speci men Type: BLOOD SPECIMEN Ordering Facility: [facility] Address: [address] Performed By: #### 5 7021-8 #### [facility] CLIA [id number] [address] [place] [address] [place] Platelet mean volume (Bld) [Entitic vol] 11.3 fL Normal 9.0-12.7 [facility] Comment on above: Order Comment: Speci men Type: BLOOD SPECIMEN Ordering Facility: [facility] Address: [address] Performed By: #### 5 7021-8 #### [facility] CLIA [id number] [address] [place] [address] [place] Platelets (Bld) [#/Vol] 241 10*3/uL Normal 150-400 [facility] Comment on above: Order Comment: Speci men Type: BLOOD SPECIMEN Ordering Facility: [facility] Address: [address] [place] [address] Performed By: #### 5 7021-8 #### [facility] CLIA [id number] [address] [place] [address] [place] RBC (Bld) [#/Vol] 5.55 10*6/uL Normal 4.20-6.00 [facility] Comment on above: Order Comment: Speci men Type: BLOOD SPECIMEN Ordering Facility: [facility] Address: [address] Performed By: #### 5 7021-8 #### [facility] CLIA [id number] [address] [place] [address] [place] WBC (Bld) [#/Vol] 18.61 10*3/uL High 3.70-11.00 [facility] Comment on above: Order Comment: Speci men Type: BLOOD SPECIMEN Ordering Facility: [facility] Address: [address] [place] [address] Performed By: #### 5 7021-8 #### [facility] CLIA [id number] [address] [place] [address] [place] Comprehensive metabolic 2000 panelon 06-20-2022 Albumin [Mass/Vol] 4.0 g/dL Normal 3.9-4.9 [facility] Comment on above: Order Comment: Speci men Type: BLOOD SPECIMEN Ordering Facility: [facility] Address: [address] [place] [address] Performed By: #### 3 4528-0, 68494-2 #### [facility] CLIA [id number] [address] [place] [address] [place] ALP [Catalytic activity/Vol] 90 U/L Normal 38-113 [facility] Comment on above: Order Comment: Speci men Type: BLOOD SPECIMEN Ordering Facility: [facility] Address: [address] [place], [place] [address] Performed By: #### 3 4528-0, 17824-0 #### [facility] CLIA [id number] [address] [place] [address] [place] ALT [Catalytic activity/Vol] 36 U/L Normal 10-54 [facility] Comment on above: Order Comment: Speci men Type: BLOOD SPECIMEN Ordering Facility: [facility] Address: [address] [place], [place] [address] Performed By: #### 3 4528-0, 55992-5 #### [facility] CLIA [id number] [facility] [place] [address] [place] Anion gap [Moles/Vol] 10 mmol/L Normal 9-18 [facility] Comment on above: Order Comment: Speci men Type: BLOOD SPECIMEN Ordering Facility: [facility] Address: [address] [place] [address] Performed By: #### 3 4528-0, 16334-9 #### [facility] CLIA [id number] [address] [place] [address] [place] AST [Catalytic activity/Vol] 20 U/L Normal 14-40 [facility] Comment on above: Order Comment: Speci men Type: BLOOD SPECIMEN Ordering Facility: [facility] Address: [address] Performed By: #### 3 4528-0, 87809-6 #### [facility] CLIA [id number] [address] [place] [address] [place] Bilirubin [Mass/Vol] 0.6 mg/dL Normal 0.2-1.3 [facility] Comment on above: Order Comment: Speci men Type: BLOOD SPECIMEN Ordering Facility: [facility] Address: [address] Performed By: #### 3 4528-0, 30402-2 #### [facility] CLIA [id number] [address] [place] [address] [place] Calcium [Mass/Vol] 9.2 mg/dL Normal 8.5-10.2 [facility] Comment on above: Order Comment: Speci men Type: BLOOD SPECIMEN Ordering Facility: [facility] Address: [address] Performed By: #### 3 4528-0, 56866-3 #### [facility] CLIA [id number] [address] [place] [address] [place] Chloride [Moles/Vol] 101 mmol/L Normal 97-105 [facility] Comment on above: Order Comment: Speci men Type: BLOOD SPECIMEN Ordering Facility: [facility] Address: [address] [place] [address] Performed By: #### 3 4528-0, 80829-0 #### [facility] CLIA [id number] [address] [place] [address] [place] CO2 [Moles/Vol] 30 mmol/L Normal 22-30 [facility] Comment on above: Order Comment: Speci men Type: BLOOD SPECIMEN Ordering Facility: [facility] Address: [address] [place] [address] Performed By: #### 3 4528-0, 22480-4 #### [facility] CLIA [id number] [address] [place] [address] OF [facility] Creatinine [Mass/Vol] 0.99 mg/dL Normal 0.73-1.22 [facility] Comment on above: Order Comment: Speci men Type: BLOOD SPECIMEN Ordering Facility: [facility] Address: [address] [place] [address] Performed By: #### 3 4528-0, 46942-9 #### [facility] CLIA [id number] [address] [place] [address] ESTIMATED GLOMERULAR FILTRATION RATE 84 mL/min/1.73m??? Normal >=60 [facility] Comment on above: Order Comment: Speci men Type: BLOOD SPECIMEN Ordering Facility: [facility] Address: [address] [place] [address] Result Comment: Madison mated Glomerular Filtration Rate [...] actual GFR. Performed By: #### 3 4528-0, 99333-2 #### [facility] CLIA [id number] [address] [place] [address] [place] Glucose [Mass/Vol] 164 mg/dL High 74-99 [facility] Comment on above: Order Comment: Specteresa men Type: BLOOD SPECIMEN Ordering Facility: [facility] Address: [address] [place] [address] Result Comment: The Stateless Diabetes Association (ADA) provides guidance for cutoff [...] Standards of Medical Care in Diabetes 2016, Stateless Diabetes Association. Diabetes Care. 2016.39(Suppl 1). Performed By: #### 3 4528-0, 93199-3 #### [facility] CLIA [id number] [address] [place] [address] [place] Potassium [Moles/Vol] 4.9 mmol/L Normal 3.7-5.1 [facility] Comment on above: Order Comment: Leighann suazo Type: BLOOD SPECIMEN Ordering Facility: [facility] Address: [address] [place], [place] [address] Performed By: #### 3 4528-0, 08295-6 #### [facility] CLIA [id number] [address] [place] [address] [place] Protein [Mass/Vol] 7.3 g/dL Normal 6.3-8.0 [facility] Comment on above: Order Comment: Leighann suazo Type: BLOOD SPECIMEN Ordering Facility: [facility] Address: [address] [place] [address] Performed By: #### 3 4528-0, 58566-7 #### [facility] CLIA [id number] [address] [place] [address] [place] Sodium [Moles/Vol] 141 mmol/L Normal 136-144 [facility] Comment on above: Order Comment: Speci men Type: BLOOD SPECIMEN Ordering Facility: [facility] Address: [address] [place] [address] Performed By: #### 3 4528-0, 30141-6 #### [facility] CLIA [id number] [address] [place] [address] [place] Urea nitrogen [Mass/Vol] 23 mg/dL Normal 9-24 [facility] Comment on above: Order Comment: Speci men Type: BLOOD SPECIMEN Ordering Facility: [facility] Address: [address] [place] [address] Performed By: #### 3 4528-0, 72553-2 #### [facility] CLIA [id number] [address] [place] [address] ED NOTEon 06-20-2022 ED NOTE HNO ID: [id number] Author: Mamie Lao RN Service: ? Author Type: Registered Nurse Type: ED Notes Filed: 06/20/2022 4:37 PM Note Text: Bed: -04 Expected date: Expected time: Means of arrival: Comments: Normal [facility] ED NOTE HNO ID: [id number] Author: Mamie Lao RN Service: Emergency Medicine [...] checks completed, call light in reach. Normal [facility] ED NOTE HNO ID: [id number] Author: Mamie Lao RN Service: Emergency Medicine Author Type: Registered Nurse Type: ED Notes Filed: 06/20/2022 3:13 PM Note Text: Report from JACQUELINE Evans. Normal [facility] ED NOTE HNO ID: [id number] Author: Priyanka Hammond Service: Emergency Medicine Author Type: Broom Maker and Senior Network Architect Type: ED Notes Filed: 06/20/2022 12:55 PM Note Text: RT to bedside. Pt placed on Zoll as precaution due to HR above 130 BPM sustained Normal [facility] ED PROV NOTEon 06-20-2022 ED PROV NOTE HNO ID: [id number] Author: Lillian Maxwell MD Service: Emergency Medicine [...] discomfort. Patient had been seeing doctors at [place] [facility] without any significant improvement of his [...] diarrhea. History provided by: Spouse and patient full time staff interpreter used: No No past medical history on [...] DANIA H (more content not included)... Normal [facility] FLUABV+SARS-CoV-2+RSV Pnl Re sp ANGELA+probeon 06-20-2022 FLUABV+SARS-CoV-2+RSV Pnl Resp ANGELA+probe COVID 19 RESULT: Not detected The method used is RT-PCR or an equivalent NAAT method. Reference Range(the expected result in uninfected individuals): Not detected INFLUENZA A PCR: Not detected INFLUENZA B PCR: Not detected RSV PCR: Not detected Normal [facility] Comment on above: Performed By: #### 3 4528-0, 28373-9 #### [facility] CLIA [id number] [address] [facility] [address] [place] HIGH SENSITIVITY TROPONIN T (INITIAL)on 06-20-2022 HIGH SENSITIVITY DANIA 14 ng/L High <12 [facility] Comment on above: Order Comment: Speci men Type: BLOOD SPECIMEN Order[facility] Address: [address] [place], [place] [address] Result Comment: When assessing risk for acute [...] day MACE. Performed By: #### 3 4528-0, 99213-2 #### [facility] CLIA [id number] [facility] [address] [place] HIGH SENSITIVITY TROPONIN T (SECOND)on 06-20-2022 HIGH SENSITIVITY DANIA 13 ng/L High <12 [facility] Comment on above: Order Comment: Leighann suazo Type: BLOOD SPECIMEN Ordering Facility: [facility] Address: [address] [place] [address] Result Comment: When assessing risk for acute [...] 30 day MACE. Performed By: #### L [id number] #### [facility] CLIA [id number] [address] [place] [address] [place] HIGH SENSITIVITY TROPONIN T (THIRD) 3 HRS AFTER INITIALon 06-20-2022 HIGH SENSITIVITY DANIA 12 ng/L High <12 [facility] Comment on above: Order Comment: Leighann suazo Type: BLOOD SPECIMEN Ordering Facility: [facility] Address: [address] [place] [address] Result Comment: When assessing risk for acute [...] day MACE. Performed By: #### 3 4528-0, 96359-6 #### [facility] CLIA [id number] [address] [facility] [place] [address] [place] HISTORY PHYSICALon HISTORY PHYSICAL HNO ID: [id number] Author: Davy De Souza MD Service: Hospital [...] He was admitted to the hospital in [place] and treated for COPD exacerbation and pneumonia [...] within normal limits Narrative: Meter ID:ED Location:ED [facility], [address] [place] [address], [employer] HIGH SENSITIVITY TROPONIN T (THIRD) 3 HRS [...] laboratory APTT reagent in use throughout the [facility]. PROTHROMBIN TIME/PT - Normal EXPEDITED COVID, FLU A/B + RSV - Normal Narrative: This test has been authorized by FDA under an Emergency Use Authorization (EUA). Test performed by [facility], [facility], [address] [place] [address]. LACTATE - ED (POC) ARTERIAL BLOOD GAS [...] for c (more content not included)... Normal [facility] Magnesium [facility] 06-20 Magnesium [Mass/Vol] 2.2 mg/dL Normal 1.7-2.3 [facility] Comment on above: Order Comment: Speci lakeisha Type: BLOOD SPECIMEN Order[facility] Address: [address] [place] [address] Performed By: #### 3 4528-0, 84428-7 #### [facility] CLIA [id number] [address] [place] [address] [place] NT-proBNP [facility] 06-20 Natriuretic peptide.B prohormone N-Terminal [Mass/Vol] 124 pg/mL Normal <125 [facility] Comment on above: Order Comment: Leighann suazo Type: BLOOD SPECIMEN Ordering Facility[facility] Address: [address] [place] [address] Performed By: #### 3 4528-0, 77014-9 #### [facility] CLIA [id number] [address] [place] [address] [place] PT panel Coag (PPP)on 2022 INR Coag (PPP) [Relative time] 1.0 {INR} Normal 0.9-1.3 [facility] Comment on above: Order Comment: Leighann suazo Type: BLOOD SPECIMEN Ordering Facility: [facility] Address: [address] [place], [place] [address] Result Comment: Trisha min K Antagonist (VKA) Therapeutic Range: INR 2 to 3 (Target INR of 2.5) Note: For patients treated with VKA drugs, such as warfarin, the [employer]eless College [employer]icians 2012 Guideline recommends [...] Chest 2012, 141:7S-47S Bishop HOLDEN et al. [facility] 2017, 70: 252-289 Performed By: #### 3 4528-0, 92923-2 #### [facility] [place] [id number] [address] [place] [address] [place] PT Coag (PPP) [Time] 10.3 s Normal 9.7-13.0 [facility] Comment on above: Order Comment: Speci men Type: BLOOD SPECIMEN Ordering Facility: [facility] Address: [address] [place] [address] Performed By: #### 3 4528-0, 28535-3 #### [facility] IA [id number] [facility] [place] [id number] [place] XR CHEST 1V [...] acute bony abnormalities. IMPRESSION: No acute findings. Auto Job Estimator: JW Transcribe Date/Time: Jun 20 2022 1:17P Dictated by : TANA GUERRA MD This examination was interpreted and the report reviewed and electronically signed by: TANA GUERRA MD on Jun 20 2022 1:19PM EST [id number] CN Normal [facility] aPTT PPPon 06-20-2022 aPTT Coag (PPP) [Time] 23.4 s Normal 23.0-32.4 [facility] Comment on above: Order Comment: Speci men Type: BLOOD SPECIMEN Ordering Facility: [facility] Address: [address] [place] [address] Performed By: #### 3 4528-0, 47232-5 #### [facility] CLIA [id number] [address] [place] [address] OF [facility] CBC AUTO DIFFon 06-09-2022 BASO # 0.0 103/ul Normal 0.0-0.1 [facility] Comment on above: Performed By: #### C BC #### [facility] [address] [place] [address] Dr. Jossy Porras Basophils/100 WBC (Bld) 0.1 % Critically low 0.2-2.0 [facility] Comment on above: Performed By: #### C BC #### [facility] [address] [place] [address] Dr. Jossy Porras EO # 0.0 103/ul Normal 0.0-0.7 [facility] Comment on above: Performed By: #### C BC #### [facility] [address] [place] [address] Dr. Jossy Porras Eosinophils/100 WBC (Bld) 0.1 % Critically low 0.9-7.0 [facility] Comment on above: Performed By: #### C BC #### [facility] [address] [place] [address] [address] Jossy Porras Erythrocyte distribution width (RBC) [Ratio] 13.4 % Normal 11.0-15.0 [facility] Comment on above: Performed By: #### C BC #### [facility] [address] [place] [address] Dr. Jossy Porras Hematocrit (Bld) [Volume fraction] 43.9 % Normal 42.0-54.0 [facility] Comment on above: Performed By: #### C BC #### [facility] [address] [place] [address] Dr. Jossy Porras Hemoglobin (Bld) [Mass/Vol] 13.9 g/dL Critically low 14.0-18.0 [facility] Comment on above: Performed By: #### C BC #### [facility] [address] [place] [address] Dr. Jossy Porras IG # 0.10 10e3/ul Critically high 0.00-0.03 [facility] Comment on above: Performed By: #### C BC #### [facility] [address] [place] [address] Dr. Jossy Porras IG % 0.7 % Critically high 0.0-0.5 [facility] Comment on above: Performed By: #### C BC #### [facility] [address] [place] [address] Dr. Jossy Porras LYMPH # 0.8 103/ul Critically low 1.2-3.8 [facility] Comment on above: Performed By: #### C BC #### [facility] [address] [place] [address] Dr. Jossy Porras Lymphocytes/100 WBC (Bld) 5.4 % Critically low 20.5-60.0 [facility] Comment on above: Performed By: #### C BC #### [facility] [address] [place] [address] Dr. Jossy Porras MANUAL DIFF REQ NO Normal [facility] Comment on above: Performed By: #### C BC #### [facility] [address] [place] [address] [address] Jossy Porras MCH (RBC) [Entitic mass] 31.0 pg Normal 25.9-34.0 [facility] Comment on above: Performed By: #### C BC #### [facility] [address] [place] [address] [address] Jossy Porras MCHC (RBC) [Mass/Vol] 31.7 g/dL Normal 29.9-35.2 [facility] Comment on above: Performed By: #### C BC #### [facility] [address] [place] [address] [address] Jossy Porras MCV (RBC) [Entitic vol] 97.8 fL Critically high 80.0-94.0 [facility] Comment on above: Performed By: #### C BC #### [facility] [address] [place] [address] Dr. Jossy Porras MONO # 0.4 103/ul Normal 0.3-0.8 [facility] Comment on above: Performed By: #### C BC #### [facility] [address] [place] [address] Dr. Jossy Porras Monocytes/100 WBC (Bld) 2.6 % Normal 1.7-12.0 [facility] Comment on above: Performed By: #### C BC #### [facility] [address] [place] [address] Dr. Jossy Porras NEUT # 14.0 103/ul Critically high 1.4-6.5 [facility] Comment on above: Performed By: #### C BC #### [facility] [address] [place] [address] Dr. Jossy Porras Neutrophils/100 WBC (Bld) 91.1 % Critically high 43.0-75.0 [facility] Comment on above: Performed By: #### C BC #### [facility] [address] [place] [address] Dr. Jossy Porras Platelet mean volume (Bld) [Entitic vol] 12.4 fL Normal 9.5-13.5 [facility] Comment on above: Performed By: #### C BC #### [facility] [address] [place] [address] Dr. Jossy Porras PLT 159 103/ul Normal 150-450 [facility] Comment on above: Performed By: #### C BC #### [facility] [address] [place] [address] Dr. Jossy Porras RBC 4.49 106/ul Critically low 4.70-6.10 [facility] Comment on above: Performed By: #### C BC #### [facility] [address] [place] [address] Dr. Jossy Porras WBC 15.3 103/ul Critically high 4.0-11.0 [facility] Comment on above: Performed By: #### C BC #### [facility] [address] [place] [address] Dr. Jossy Porras PROF 14(COMP METB)on 023 Albumin [Mass/Vol] 2.9 g/dL Critically low 3.4-5.0 [facility] Comment on above: Performed By: #### C BC #### [facility] [address] [place] [address] Dr. Jossy Porras Albumin/Globulin [Mass ratio] 1.0 {ratio} Normal [facility] Comment on above: Performed By: #### C BC #### [facility] [address] [place] [address] Dr. Jossy Porras ALP [Catalytic activity/Vol] 75 U/L Normal 46-116 [facility] Comment on above: Performed By: #### C BC #### [facility] [address] [place] [address] Dr. Jossy Porras ALT [Catalytic activity/Vol] 37 U/L Normal 16-63 [facility] Comment on above: Performed By: #### C BC #### [facility] [address] [place] [address] Dr. Jossy Porras Anion gap [Moles/Vol] 10.8 mmol/L Normal [facility] Comment on above: Performed By: #### C BC #### [facility] [address] [address] [address] Jossy Porras AST [Catalytic activity/Vol] 17 U/L Normal 15-37 [facility] Comment on above: Performed By: #### C BC #### [facility] [address] [address] [address] Jossy Porras Bilirubin [Mass/Vol] 0.3 mg/dL Normal 0.2-1.0 [facility] Comment on above: Performed By: #### C BC #### [facility] [address] [address] [address] Jossy Porras Calcium [Mass/Vol] 8.6 mg/dL Normal 8.5-10.1 [facility] Comment on above: Performed By: #### C BC #### [facility] [address] [place] [address] Dr. Jossy Porras Chloride [Moles/Vol] 101 mmol/L Normal 98-107 [facility] Comment on above: Performed By: #### C BC #### [facility] [address] [address] [address] Jossy Porras CO2 [Moles/Vol] 30.7 mmol/L Normal 21.0-32.0 [facility] Comment on above: Performed By: #### C BC #### [facility] [address] [place] [address] Dr. Jossy Porras Creatinine [Mass/Vol] 0.92 mg/dL Normal 0.70-1.30 [facility] Comment on above: Performed By: #### C BC #### [facility] [address] [place] [address] Dr. Jossy Porras EGFR-AF GUYANESE >60 Normal >=60 [facility] Comment on above: Performed By: #### C BC #### [facility] [address] [place] [address] Dr. Jossy Porras EGFR-NON AF GUYANESE >60 Normal >=60 [facility] Comment on above: Performed By: #### C BC #### [facility] [address] [place] [address] Dr. Jossy Porras Globulin (S) [Mass/Vol] 3.0 g/dL Normal [facility] Comment on above: Performed By: #### C BC #### [facility] [address] [address] [address] Jossy Porras Glucose [Mass/Vol] 144 mg/dL Critically high 74-106 [facility] Comment on above: Performed By: #### C BC #### [facility] [address] [address] [address] Jossy Porras Potassium [Moles/Vol] 4.5 mmol/L Normal 3.5-5.1 [facility] Comment on above: Performed By: #### C BC #### [facility] [address] [place] [address] Dr. Jossy Porras Protein [Mass/Vol] 5.9 g/dL Critically low 6.4-8.2 [facility] Comment on above: Performed By: #### C BC #### [facility] [address] [place] [address] Dr. Jossy Porras Sodium [Moles/Vol] 138 mmol/L Normal 136-145 [facility] Comment on above: Performed By: #### C BC #### [facility] [address] [place] [address] Dr. Jossy Porras Urea nitrogen [Mass/Vol] 19.0 mg/dL Critically high 7.0-18.0 [facility] Comment on above: Performed By: #### C BC #### [facility] [address] [place] [address] Dr. Jossy Porras Urea nitrogen/Creatinine [Mass ratio] 20.7 mg/mg Normal [facility] Comment on above: Performed By: #### C BC #### [facility] [address] [place] [address] Dr. Jossy Porras CBC AUTO DIFFon 06-08-2022 BASO # 0.0 103/ul Normal 0.0-0.1 [facility] Comment on above: Performed By: #### C BC ####[facility] [address] [address]Dr. Jossy Porras Basophils/100 WBC (Bld) 0.1 % Critically low 0.2-2.0 [facility] Comment on above: Performed By: #### C BC ####[facility] [address] [address]Dr. Jossy Porras EO # 0.0 103/ul Normal 0.0-0.7 [facility] Comment on above: Performed By: #### C BC ####[facility] [address] [address]Dr. Jossy Porras Eosinophils/100 WBC (Bld) 0.0 % Critically low 0.9-7.0 [facility] Comment on above: Performed By: #### C BC ####[facility] [address] [place], [place] [address]Dr. Jossy Porras Erythrocyte distribution width (RBC) [Ratio] 13.2 % Normal 11.0-15.0 [facility] Comment on above: Performed By: #### C BC ####[facility] [address] [place], [place] [address]Dr. Jossy Porras Hematocrit (Bld) [Volume fraction] 46.4 % Normal 42.0-54.0 [facility] Comment on above: Performed By: #### C BC ####[facility] [address] [place], [place] [address]Dr. Jossy Porras Hemoglobin (Bld) [Mass/Vol] 14.2 g/dL Normal 14.0-18.0 [facility] Comment on above: Performed By: #### C BC ####[facility] [address] [place], [place] [address]Dr. Jossy Porras IG # 0.04 10e3/ul Critically high 0.00-0.03 [facility] Comment on above: Performed By: #### C BC ####[facility] [address] [place], [place] [address]Dr. Jossy Porras IG % 0.5 % Normal 0.0-0.5 [facility] Comment on above: Performed By: #### C BC ####[facility] [address] [address]Dr. Jossy Porras LYMPH # 0.6 103/ul Critically low 1.2-3.8 [facility] Comment on above: Performed By: #### C BC ####[facility] [address] [address]Dr. Jossy Porras Lymphocytes/100 WBC (Bld) 7.3 % Critically low 20.5-60.0 [facility] Comment on above: Performed By: #### C BC ####[facility] [address] [address]Dr. Jossy Porras MANUAL DIFF REQ NO Normal [facility] Comment on above: Performed By: #### C BC ####[facility] [address] [place], [place] [address]Dr. Jossy Porras MCH (RBC) [Entitic mass] 30.4 pg Normal 25.9-34.0 [facility] Comment on above: Performed By: #### C BC ####[facility] [address] [place], [place] [address]Dr. Jossy Porras MCHC (RBC) [Mass/Vol] 30.6 g/dL Normal 29.9-35.2 [facility] Comment on above: Performed By: #### C BC ####[facility] [address] [place], [place] [address]Dr. Jossy Porras MCV (RBC) [Entitic vol] 99.4 fL Critically high 80.0-94.0 [facility] Comment on above: Performed By: #### C BC ####[facility] [address] [place], [place] [address]Dr. Jossy Porras MONO # 0.1 103/ul Critically low 0.3-0.8 [facility] Comment on above: Performed By: #### C BC ####[facility] [address] [place], [place] [address]Dr. Jossy Porras Monocytes/100 WBC (Bld) 1.4 % Critically low 1.7-12.0 [facility] Comment on above: Performed By: #### C BC ####[facility] [address] [id number]. Jossy Porras NEUT # 7.1 103/ul Critically high 1.4-6.5 [facility] Comment on above: Performed By: #### C BC ####[facility] [address] [id number]. Jossy Porras Neutrophils/100 WBC (Bld) 90.7 % Critically high 43.0-75.0 [facility] Comment on above: Performed By: #### C BC ####[facility] [address] [id number]. Jossy Porras Platelet mean volume (Bld) [Entitic vol] 11.9 fL Normal 9.5-13.5 [facility] Comment on above: Performed By: #### C BC ####[facility] [address] [id number]. Jossy Porras PLT 156 103/ul Normal 150-450 [facility] Comment on above: Performed By: #### C BC ####[facility] [address] [id number]. Jossy Porras RBC 4.67 106/ul Critically low 4.70-6.10 [facility] Comment on above: Performed By: #### C BC ####[facility] [address] [id number]. Jossy Porras WBC 7.8 103/ul Normal 4.0-11.0 [facility] Comment on above: Performed By: #### C BC ####[facility] [address] [place], [place] [address]Dr. Jossy Porras CT CHEST WO CONon 06-08-2022 [...] by: MARIBETH CEDILLO Date: 2022-06-08 10:52 Normal [facility] PROF 14(COMP METB)on 023 Albumin [Mass/Vol] 3.0 g/dL Critically low 3.4-5.0 [facility] Comment on above: Performed By: #### C VDTBH #### [facility] [address] [place] [address] Dr. Jossy Porras Albumin/Globulin [Mass ratio] 0.9 {ratio} Normal [facility] Comment on above: Performed By: #### C VDTBH #### [facility] [address] [place] [address] Dr. Jossy Porras ALP [Catalytic activity/Vol] 84 U/L Normal 46-116 [facility] Comment on above: Performed By: #### C VDTBH #### [facility] [address] [place] [address] Dr. Jossy Porras ALT [Catalytic activity/Vol] 40 U/L Normal 16-63 [facility] Comment on above: Performed By: #### C VDTBH #### [facility] [address] [place] [address] Dr. Jossy Porras Anion gap [Moles/Vol] 13.8 mmol/L Normal [facility] Comment on above: Performed By: #### C VDTBH #### [facility] [address] [place] [address] Dr. Jossy Porras AST [Catalytic activity/Vol] 30 U/L Normal 15-37 [facility] Comment on above: Performed By: #### C VDTBH #### [facility] [address] [place], [place] [address] Dr. Jossy Porras Bilirubin [Mass/Vol] 0.5 mg/dL Normal 0.2-1.0 [facility] Comment on above: Performed By: #### C VDTBH #### [facility] [address] [place] [address] Dr. Jossy Porras Calcium [Mass/Vol] 8.6 mg/dL Normal 8.5-10.1 [facility] Comment on above: Performed By: #### C VDTBH #### [facility] [address] [place] [address] Dr. Jossy Porras Chloride [Moles/Vol] 103 mmol/L Normal 98-107 [facility] Comment on above: Performed By: #### C VDTBH #### [facility] [address] [place] [address] Dr. Jossy Porras CO2 [Moles/Vol] 28.0 mmol/L Normal 21.0-32.0 [facility] Comment on above: Performed By: #### C VDTBH #### [facility] [address] [place] [address] Dr. Jossy Porras Creatinine [Mass/Vol] 1.06 mg/dL Normal 0.70-1.30 [facility] Comment on above: Performed By: #### C VDTBH #### [facility] [address] [place] [address] Dr. Jossy Porras EGFR-AF GUYANESE >60 Normal >=60 [facility] Comment on above: Performed By: #### C VDTBH #### [facility] [address] [place] [address] Dr. Jossy Porras EGFR-NON AF GUYANESE >60 Normal >=60 [facility] Comment on above: Performed By: #### C VDTBH #### [facility] [address] [place] [address] Dr. Jossy Proras Globulin (S) [Mass/Vol] 3.5 g/dL Normal [facility] Comment on above: Performed By: #### C VDTBH #### [facility] [address] [place] [address] Dr. Jossy Porras Glucose [Mass/Vol] 137 mg/dL Critically high 74-106 T [facility] Comment on above: Performed By: #### C VDTBH #### [facility] [address] [address] [address] Jossy Porras Potassium [Moles/Vol] 4.8 mmol/L Normal 3.5-5.1 [facility] Comment on above: Performed By: #### C VDTBH #### [facility] [address] [address] [address] Jossy Porras Protein [Mass/Vol] 6.5 g/dL Normal 6.4-8.2 [facility] Comment on above: Performed By: #### C VDTBH #### [facility] [address] [place] [address] Dr. Jossy Porras Sodium [Moles/Vol] 140 mmol/L Normal 136-145 [facility] Comment on above: Performed By: #### C VDTBH #### [facility] [address] [place] [address] Dr. Jossy Porras Urea nitrogen [Mass/Vol] 14.0 mg/dL Normal 7.0-18.0 [facility] Comment on above: Performed By: #### C VDTBH #### [facility] [address] [place] [address] Dr. Jossy Porras Urea nitrogen/Creatinine [Mass ratio] 13.2 mg/mg Normal [facility] Comment on above: Performed By: #### C VDTBH #### [facility] [address] [place] [address] Dr. Jossy Porras BNPon 06-07-2022 Natriuretic peptide B (Bld) [Mass/Vol] 82.0 pg/mL Normal <=900.0 [facility] Comment on above: Performed By: #### C MP, BNP, HSTROPN ####[facility] [address] [address]Dr. Jossy Porras CBC AUTO DIFFon 06-07-2022 BASO # 0.1 103/ul Normal 0.0-0.1 [facility] Comment on above: Performed By: #### C BC ####[facility] [address] [id number]. Jossy Porras Basophils/100 WBC (Bld) 0.6 % Normal 0.2-2.0 [facility] Comment on above: Performed By: #### C BC ####[facility] [address] [id number]. Jossy Porras EO # 0.1 103/ul Normal 0.0-0.7 [facility] Comment on above: Performed By: #### C BC ####[facility] [address] [id number]. Jossy Porras Eosinophils/100 WBC (Bld) 1.5 % Normal 0.9-7.0 [facility] Comment on above: Performed By: #### C BC ####[facility] [address] [place], [place] [address]Dr. Jossy Porras Erythrocyte distribution width (RBC) [Ratio] 13.4 % Normal 11.0-15.0 [facility] Comment on above: Performed By: #### C BC ####[facility] [address] [place], [place] [address]Dr. Jossy Porras Hematocrit (Bld) [Volume fraction] 53.2 % Normal 42.0-54.0 [facility] Comment on above: Performed By: #### C BC ####[facility] [address] [place], [place] [address]Dr. Jossy Porras Hemoglobin (Bld) [Mass/Vol] 16.4 g/dL Normal 14.0-18.0 [facility] Comment on above: Performed By: #### C BC ####[facility] [address] [place], [place] [address]Dr. Jossy Porras IG # 0.03 10e3/ul Normal 0.00-0.03 [facility] Comment on above: Performed By: #### C BC ####[facility] [address] [place], [place] [address]Dr. Jossy Porras IG % 0.3 % Normal 0.0-0.5 [facility] Comment on above: Performed By: #### C BC ####[facility] [address] [id number]. Jossy Vern LYMPH # 2.8 103/ul Normal 1.2-3.8 [facility] Comment on above: Performed By: #### C BC ####[facility] [address] [id number]. Jossy Porras Lymphocytes/100 WBC (Bld) 31.3 % Normal 20.5-60.0 [facility] Comment on above: Performed By: #### C BC ####[facility] [address] [id number]. Jossy Porras MANUAL DIFF REQ NO Normal [facility] Comment on above: Performed By: #### C BC ####[facility] [address] [id number]. Jossy Porras MCH (RBC) [Entitic mass] 30.7 pg Normal 25.9-34.0 [facility] Comment on above: Performed By: #### C BC ####[facility] [address] [id number]. Amiemyron Porras MCHC (RBC) [Mass/Vol] 30.8 g/dL Normal 29.9-35.2 [facility] Comment on above: Performed By: #### C BC ####[facility] [address] [id number]. Jossy Porras MCV (RBC) [Entitic vol] 99.6 fL Critically high 80.0-94.0 [facility] Comment on above: Performed By: #### C BC ####[facility] [address] [id number]. Jossy Porras MONO # 0.5 103/ul Normal 0.3-0.8 [facility] Comment on above: Performed By: #### C BC ####[facility] [address] [id number]. Jossy Porras Monocytes/100 WBC (Bld) 5.9 % Normal 1.7-12.0 [facility] Comment on above: Performed By: #### C BC ####[facility] [address] [id number]. Jossy Porras NEUT # 5.3 103/ul Normal 1.4-6.5 [facility] Comment on above: Performed By: #### C BC ####[facility] [address] [id number]. Jossy Vern Neutrophils/100 WBC (Bld) 60.4 % Normal 43.0-75.0 [facility] Comment on above: Performed By: #### C BC ####[facility] [address] [place] [id number]. Amiemyron Vern Platelet mean volume (Bld) [Entitic vol] 12.2 fL Normal 9.5-13.5 [facility] Comment on above: Performed By: #### C BC ####[facility] [address] [id number]. Jossy Porras PLT 199 103/ul Normal 150-450 [facility] Comment on above: Performed By: #### C BC ####[facility] [address] [id number]. Amiemyron Vern RBC 5.34 106/ul Normal 4.70-6.10 [facility] Comment on above: Performed By: #### C BC ####[facility] [address] [id number]. Amiemyron Vern WBC 8.8 103/ul Normal 4.0-11.0 [facility] Comment on above: Performed By: #### C BC ####[facility] [address] [id number] Porras CULTURE BLOODon 06-07-2022 Microscopic examination of blood, culture Culture Observations: NO GROWTH AT 5 DAYS. Normal [facility] Comment on above: Performed By: #### B LDCX2 #### [facility] [address] [place], [place] [address] Dr. Jossy Porras Microscopic examination of blood, culture Culture Observations: NO GROWTH AT 5 DAYS. Normal [facility] Comment on above: Performed By: #### B LDCX1 ####[facility] [address] [place] [address]DrSla Porras [facility]on SARS-CoV-2 (COVID-19) RNA ANGELA+probe Ql (Unsp spec) Not detected Normal NOT DETECTED [facility] Comment on above: Result Comment: When [...] for this test is supported by the [place] of Health and Human Service's declaration that [...] be used). Performed By: #### C VDTBH ####[facility] [address] [address]DrSal Porras LACTATE/LACTIC ACIDon 2022 Lactate [Moles/Vol] 1.7 mmol/L Normal 0.4-1.9 [facility] Comment on above: Performed By: #### L ACT #### [facility] [address] [place] [address] Dr. Jossy Porras Lactate [Moles/Vol] 2.1 mmol/L Critically high 0.4-1.9 [facility] Comment on above: Performed By: #### C BC #### [facility] [address] [place] [address] Dr. Jossy Porras PROF 14(COMP METB)on 023 Albumin [Mass/Vol] 3.4 g/dL Normal 3.4-5.0 [facility] Comment on above: Performed By: #### C MP, BNP, HSTROPN ####[facility] [address] [place] [address]Dr. Jossy Porras Albumin/Globulin [Mass ratio] 0.9 {ratio} Normal [facility] Comment on above: Performed By: #### C MP, BNP, HSTROPN ####[facility] [address] [place] [address]Dr. Jossy Porras ALP [Catalytic activity/Vol] 91 U/L Normal 46-116 [facility] Comment on above: Performed By: #### C MP, BNP, HSTROPN ####[facility] [address] [place] [address]Dr. Jossy Porras ALT [Catalytic activity/Vol] 52 U/L Normal 16-63 [facility] Comment on above: Performed By: #### C MP, BNP, HSTROPN ####[facility] [address] [place], [place] [address]Dr. Jossy Porars Anion gap [Moles/Vol] 10.0 mmol/L Normal [facility] Comment on above: Performed By: #### C MP, BNP, HSTROPN ####[facility] [address]jl[address] [place], [place] [address]Dr. Jossy Porras AST [Catalytic activity/Vol] 30 U/L Normal 15-37 [facility] Comment on above: Performed By: #### C MP, BNP, HSTROPN ####[facility] [address] [place], [place] [address]Dr. Jossy Vern Bilirubin [Mass/Vol] 0.4 mg/dL Normal 0.2-1.0 [facility] Comment on above: Performed By: #### C MP, BNP, HSTROPN ####[facility] [address] [place], [place] [address]Dr. Jossy Porras Calcium [Mass/Vol] 8.8 mg/dL Normal 8.5-10.1 [facility] Comment on above: Performed By: #### C MP, BNP, HSTROPN ####[facility] [address] [place] [address]Dr. Jossy Porras Chloride [Moles/Vol] 102 mmol/L Normal 98-107 [facility] Comment on above: Performed By: #### C MP, BNP, HSTROPN ####[facility] [address] [place] [address]Dr. Jossy Porras CO2 [Moles/Vol] 35.7 mmol/L Critically high 21.0-32.0 [facility] Comment on above: Performed By: #### C MP, BNP, HSTROPN ####[facility] [address] [place] [address]Dr. Jossy Porras Creatinine [Mass/Vol] 1.06 mg/dL Normal 0.70-1.30 [facility] Comment on above: Performed By: #### C MP, BNP, HSTROPN ####[facility] [address] [place], [place] [address]Dr. Jossy Porras EGFR-AF GUYANESE >60 Normal >=60 [facility] Comment on above: Performed By: #### C MP, BNP, HSTROPN ####[facility] [address] [place] [address]Dr. Jossy Porras EGFR-NON AF GUYANESE >60 Normal >=60 [facility] Comment on above: Performed By: #### C MP, BNP, HSTROPN ####[facility] [address] [place] [address]Dr. Jossy Porras Globulin (S) [Mass/Vol] 3.8 g/dL Normal [facility] Comment on above: Performed By: #### C MP, BNP, HSTROPN ####[facility] [address] [place] [address]Dr. Jossy Porras Glucose [Mass/Vol] 107 mg/dL Critically high 74-106 [facility] Comment on above: Performed By: #### C MP, BNP, HSTROPN ####[facility] [address]es[address] [place] [address]Dr. Jossy Porras Potassium [Moles/Vol] 3.7 mmol/L Normal 3.5-5.1 [facility] Comment on above: Performed By: #### C MP, BNP, HSTROPN ####[facility] [address] [place], [place] [address]Dr. Jossy Porras Protein [Mass/Vol] 7.2 g/dL Normal 6.4-8.2 [facility] Comment on above: Performed By: #### C MP, BNP, HSTROPN ####[facility] [address] [place], [place] [address]Dr. Jossy Porras Sodium [Moles/Vol] 144 mmol/L Normal 136-145 [facility] Comment on above: Performed By: #### C MP, BNP, HSTROPN ####[facility] [address] [place], [place] [address]Dr. Jossy Porras Urea nitrogen [Mass/Vol] 12.0 mg/dL Normal 7.0-18.0 [facility] Comment on above: Performed By: #### C MP, BNP, HSTROPN ####[facility] [address] [place], [place] [address]Dr. Jossy Porras Urea nitrogen/Creatinine [Mass ratio] 11.3 mg/mg Normal [facility] Comment on above: Performed By: #### C MP, BNP, HSTROPN ####[facility] [address] [place], [place] [address]Dr. Jossy Porras PROTIMEon 06-07-2022 INR Coag (PPP) [Relative time] 1.02 {INR} Normal [facility] Comment on above: Performed By: #### P T ####[facility] [address] [place], [place] [address]Dr. Jossy Porras INR GUIDELINES SEE BELOW Normal [facility] Comment on above: Result Comment: DARLEEN RED INR: 2.0 - 3.0 CONDITIONS NOT LISTED BELOW 2.5 - 3.5 FOR PROSTHETIC HEART VALVE REPLACEMENT 2.5 - 3.5 RECURRENT THROMBOSIS Performed By: #### P T ####[facility] [address] [place], [place] [address]Dr. Jossy Porras PT Coag (PPP) [Time] 10.8 s Normal 9.0-11.6 [facility] Comment on above: Performed By: #### P T ####[facility] [address] [id number]. Jossy Porras TROPONIN, HIGH SENSITIVITYon 06-07-2022 HSTROP 22.5 pg/mL Normal 4.0-76.1 [facility] Comment on above: Result Comment: CUT- OFF POINTS HAVE BEEN ESTABLISHED BASED ON THE FOURTH UNIVERSAL DEFINITIONS OF MYOCARDIAL INFARCTION. THE UPPER REFERENCE LIMIT (URL) OF TROPONIN, DEFINED THE 99TH PERCENTILE OF cTnI DISTRIBUTION IN A REFERENCE POPULATION, HAS BEEN CONFIRMED THE DECISION THRESHOLD FOR [place] DIAGNOSIS. Performed By: #### C MP, BNP, HSTROPN ####[facility] [address] [id number]. Jossy Porras XR CHEST 1 Von 06-07-2022 [...] JEANNIE GUERRERO Date: 2022-06-07 19:09 Normal [facility] BNPon 05-13-2022 Natriuretic peptide B (Bld) [Mass/Vol] 92.0 pg/mL Normal <=900.0 [facility] Comment on above: Performed By: #### C VDTB #### [facility] [address] [address] [address] Jossy Porras CARDIAC SRIDHAR ADMITon 023 CK [Catalytic activity/Vol] 55 U/L Normal 39-308 [facility] Comment on above: Performed By: #### C VDTBH #### [facility] [address] [address] [address] Jossy Porras CK.MB [Mass/Vol] 1.07 ng/mL Normal <=3.60 [facility] Comment on above: Performed By: #### C VDTBH #### [facility] [address] [place] [address] Dr. Jossy Porras HSTROP 20.2 pg/mL Normal 4.0-76.1 [facility] Comment on above: Result Comment: CUT- OFF POINTS HAVE BEEN ESTABLISHED BASED ON THE FOURTH UNIVERSAL DEFINITIONS OF MYOCARDIAL INFARCTION. THE UPPER REFERENCE LIMIT (URL) OF TROPONIN, DEFINED THE 99TH PERCENTILE OF cTnI DISTRIBUTION IN A REFERENCE POPULATION, HAS BEEN CONFIRMED THE DECISION THRESHOLD FOR [place] DIAGNOSIS. Performed By: #### C VDTBH #### [facility] [address] [place] [address] Dr. Jossy Porras CLEMENT 57 ng/mL Normal 16-96 [facility] Comment on above: Performed By: #### C VDTBH #### [facility] [address] [place] [address] Dr. Jossy Porras CBC AUTO DIFFon 05-13-2022 BASO # 0.1 103/ul Normal 0.0-0.1 [facility] Comment on above: Performed By: #### C VDTBH #### [facility] [address] [place] [address] Dr. Jossy Porras Basophils/100 WBC (Bld) 0.7 % Normal 0.2-2.0 [facility] Comment on above: Performed By: #### C VDTBH #### [facility] [address] [place] [address] Dr. Jossy Porras EO # 0.1 103/ul Normal 0.0-0.7 [facility] Comment on above: Performed By: #### C VDTBH #### [facility] [address] [place] [address] Dr. Jossy Porras Eosinophils/100 WBC (Bld) 1.6 % Normal 0.9-7.0 [facility] Comment on above: Performed By: #### C VDTBH #### [facility] [address] [place] [address] Dr. Jossy Porras Erythrocyte distribution width (RBC) [Ratio] 13.1 % Normal 11.0-15.0 [facility] Comment on above: Performed By: #### C VDTBH #### [facility] [address] [place] [address] Dr. Jossy Porras Hematocrit (Bld) [Volume fraction] 52.8 % Normal 42.0-54.0 [facility] Comment on above: Performed By: #### C VDTBH #### [facility] [address] [place] [address] Dr. Jossy Porras Hemoglobin (Bld) [Mass/Vol] 16.5 g/dL Normal 14.0-18.0 [facility] Comment on above: Performed By: #### C VDTBH #### [facility] [address] [place] [address] Dr. Jossy Porras IG # 0.02 10e3/ul Normal 0.00-0.03 [facility] Comment on above: Performed By: #### C VDTBH #### [facility] [address] [place] [address] Dr. Jossy Porras IG % 0.3 % Normal 0.0-0.5 [facility] Comment on above: Performed By: #### C VDTBH #### [facility] [address] [place] [address] Dr. Jossy Porras LYMPH # 2.2 103/ul Normal 1.2-3.8 [facility] Comment on above: Performed By: #### C VDTBH #### [facility] [address] [place] [address] Dr. Jossy Porras Lymphocytes/100 WBC (Bld) 32.3 % Normal 20.5-60.0 [facility] Comment on above: Performed By: #### C VDTBH #### [facility] [address] [place] [address] Dr. Jossy Porras MANUAL DIFF REQ NO Normal [facility] Comment on above: Performed By: #### C VDTBH #### [facility] [address] [place] [address] Dr. Jossy Porras MCH (RBC) [Entitic mass] 30.8 pg Normal 25.9-34.0 [facility] Comment on above: Performed By: #### C VDTBH #### [facility] [address] [place] [address] Dr. Jossy Porras MCHC (RBC) [Mass/Vol] 31.3 g/dL Normal 29.9-35.2 [facility] Comment on above: Performed By: #### C VDTBH #### [facility] [address] [place] [address] Dr. Jossy Porras MCV (RBC) [Entitic vol] 98.5 fL Critically high 80.0-94.0 [facility] Comment on above: Performed By: #### C VDTBH #### [facility] [address] [place] [address] Dr. Jossy Porras MONO # 0.4 103/ul Normal 0.3-0.8 [facility] Comment on above: Performed By: #### C VDTBH #### [facility] [address] [place] [address] Dr. Jossy Porras Monocytes/100 WBC (Bld) 6.4 % Normal 1.7-12.0 [facility] Comment on above: Performed By: #### C VDTBH #### [facility] [address] [place] [address] Dr. Jossy Porras NEUT # 4.1 103/ul Normal 1.4-6.5 [facility] Comment on above: Performed By: #### C VDTBH #### [facility] [address] [place] [address] Dr. Jossy Porras Neutrophils/100 WBC (Bld) 58.7 % Normal 43.0-75.0 [facility] Comment on above: Performed By: #### C VDTBH #### [facility] [address] [place] [address] Dr. Jossy Porras Platelet mean volume (Bld) [Entitic vol] 12.1 fL Normal 9.5-13.5 [facility] Comment on above: Performed By: #### C VDTBH #### [facility] [address] [place] [address] Dr. Jossy Porras PLT 180 103/ul Normal 150-450 [facility] Comment on above: Performed By: #### C VDTBH #### [facility] [address] [place] [address] Dr. Jossy Porras RBC 5.36 106/ul Normal 4.70-6.10 [facility] Comment on above: Performed By: #### C VDTBH #### [facility] [address] [place] [address] Dr. Jossy Porras WBC 6.9 103/ul Normal 4.0-11.0 [facility] Comment on above: Performed By: #### C VDTBH #### [facility] [address] [place] [address] Dr. Jossy Porras CULTURE BLOODon 05-13-2022 Microscopic examination of blood, culture Culture Observations: NO GROWTH AT 5 DAYS. Normal [facility] Comment on above: Performed By: #### B LDCX2 #### [facility] [address] [place] [address] Dr. Jossy Porras Performed By: #### B LDCX1 #### [facility] [address] [place] [address] Dr. Jossy Porras Covid-19 PCR ([facility])on 05-03 SARS-CoV-2 (COVID-19) RNA ANGELA+probe Ql (Unsp spec) Not detected Normal NOT DETECTED [facility] Comment on above: Result Comment: When [...] for this test is supported by the Board Handler of Health and Human Service's declaration that [...] used). Performed By: #### C VDTBH #### [facility] [address] [address] [address] Jossy Porras INFLUENZA A AND B AGon 05-13 [facility] SEE BELOW Normal [facility] Comment on above: Result Comment: Nega tive for Flu A protein angiten. Infection due to Flu A cannot be ruled out. Flu A angiten in the sample may be below the detection limit of the test. Performed By: #### I NFLUAB ####[facility] [address] [address]Dr. Jossy Porras INFLUBNEGH SEE BELOW Normal [facility] Comment on above: Result Comment: Nega tive for Flu B protein antigen. Infection due to Flu B cannot be ruled out. Flu B antigen in the sample may be below the detection limit of the test. Performed By: #### I NFLUAB ####[facility] [address] [address]DrSal Porras INFLUENZA A AG Negative Normal NEGATIVE SEE COMMENT [facility] Comment on above: Performed By: #### I NFLUAB ####[facility] [address] [place], [place] [address]DrSal Porras INFLUENZA B AG Negative Normal NEGATIVE SEE COMMENT [facility] Comment on above: Performed By: #### I NFLUAB ####[facility] [address] [address]Dr. Jossy Porras LACTATE/LACTIC ACIDon 2022 Lactate [Moles/Vol] 1.4 mmol/L Normal 0.4-1.9 [facility] Comment on above: Performed By: #### C VDTBH #### [facility] [address] [address] [address] Jossy Porras PROF 14(COMP METB)on 023 Albumin [Mass/Vol] 3.6 g/dL Normal 3.4-5.0 [facility] Comment on above: Performed By: #### C VDTBH #### [facility] [address] [address] [address] Jossy Porras Albumin/Globulin [Mass ratio] 1.0 {ratio} Normal [facility] Comment on above: Performed By: #### C VDTBH #### [facility] [address] [address] [address] Jossy Porras ALP [Catalytic activity/Vol] 97 U/L Normal 46-116 [facility] Comment on above: Performed By: #### C VDTBH #### [facility] [address] [place] [address] Dr. Jossy Porras ALT [Catalytic activity/Vol] 32 U/L Normal 16-63 [facility] Comment on above: Performed By: #### C VDTBH #### [facility] [address] [place] [address] Dr. Jossy Porras Anion gap [Moles/Vol] 7.0 mmol/L Normal [facility] Comment on above: Performed By: #### C VDTBH #### [facility] [address] [place] [address] Dr. Jossy Porras AST [Catalytic activity/Vol] 28 U/L Normal 15-37 [facility] Comment on above: Performed By: #### C VDTBH #### [facility] [address] [place] [address] Dr. Jossy Porras Bilirubin [Mass/Vol] 0.4 mg/dL Normal 0.2-1.0 [facility] Comment on above: Performed By: #### C VDTBH #### [facility] [address] [place] [address] Dr. Jossy Porras Calcium [Mass/Vol] 9.0 mg/dL Normal 8.5-10.1 [facility] Comment on above: Performed By: #### C VDTBH #### [facility] [address] [place] [address] Dr. Jossy Porras Chloride [Moles/Vol] 102 mmol/L Normal 98-107 [facility] Comment on above: Performed By: #### C VDTBH #### [facility] [address] [address] [address] Jossy Porras CO2 [Moles/Vol] 34.3 mmol/L Critically high 21.0-32.0 [facility] Comment on above: Performed By: #### C VDTBH #### [facility] [address] [address] [address] Jossy Porras Creatinine [Mass/Vol] 0.91 mg/dL Normal 0.70-1.30 [facility] Comment on above: Performed By: #### C VDTBH #### [facility] [address] [address] [address] Jossy Porras EGFR-AF GUYANESE >60 Normal >=60 [facility] Comment on above: Performed By: #### C VDTBH #### [facility] [address] [place] [address] Dr. Jossy Porras EGFR-NON AF GUYANESE >60 Normal >=60 [facility] Comment on above: Performed By: #### C VDTBH #### [facility] [address] [place] [address] Dr. Jossy Porras Globulin (S) [Mass/Vol] 3.6 g/dL Normal [facility] Comment on above: Performed By: #### C VDTBH #### [facility] [address] [place] [address] Dr. Jossy Porras Glucose [Mass/Vol] 123 mg/dL Critically high 74-106 [facility] Comment on above: Performed By: #### C VDTBH #### [facility] [address] [address] [address] Jossy Porras Potassium [Moles/Vol] 4.3 mmol/L Normal 3.5-5.1 [facility] Comment on above: Performed By: #### C VDTBH #### [facility] [address] [place] [address] Dr. Jossy Porras Protein [Mass/Vol] 7.2 g/dL Normal 6.4-8.2 [facility] Comment on above: Performed By: #### C VDTBH #### [facility] [address] [address] [address] Jossy Porras Sodium [Moles/Vol] 139 mmol/L Normal 136-145 [facility] Comment on above: Performed By: #### C VDTBH #### [facility] [address] [place] [address] Dr. Jossy Porras Urea nitrogen [Mass/Vol] 11.0 mg/dL Normal 7.0-18.0 [facility] Comment on above: Performed By: #### C VDTBH #### [facility] [address] [place] [address] Dr. Jossy Porras Urea nitrogen/Creatinine [Mass ratio] 12.1 mg/mg Normal [facility] Comment on above: Performed By: #### C VDTBH #### [facility] [address] [place] [address] Dr. Jossy Porras PROTIMEon 05-13-2022 INR Coag (PPP) [Relative time] 1.01 {INR} Normal [facility] Comment on above: Performed By: #### C BC #### [facility] [address] [place] [address] Dr. Jossy Porras INR GUIDELINES SEE BELOW Normal [facility] Comment on above: Result Comment: DARLEEN RED INR: 2.0 - 3.0 CONDITIONS NOT LISTED BELOW 2.5 - 3.5 FOR PROSTHETIC HEART VALVE REPLACEMENT 2.5 - 3.5 RECURRENT THROMBOSIS Performed By: #### C BC #### [facility] [address] [place] [address] Dr. Jossy Porras PT Coag (PPP) [Time] 10.7 s Normal 9.0-11.6 [facility] Comment on above: Performed By: #### C BC #### [facility] [address] [place] [address] Dr. Jossy Porras PTTon 05-13-2022 aPTT Coag (Bld) [Time] 25.9 s Normal 22.3-36.2 [facility] Comment on above: Performed By: #### C BC #### [facility] [address] [place] [address] Dr. Jossy Porras XR CHEST 1 Von [...] NIELS BERNAL Date: 2022-05-13 17:04 Normal [facility] HEMOGLOBINon 02-16-2022 Hemoglobin (Bld) [Mass/Vol] 16.9 g/dL Normal 14.0-18.0 [facility] Comment on above: Performed By: #### C BC #### [facility] [address] [place] [address] Dr. Jossy Porras BNPon 12-13-2021 Natriuretic peptide B (Bld) [Mass/Vol] 166.0 pg/mL Normal <=900.0 [facility] Comment on above: Performed By: #### C BC #### [facility] [address] [place] [address] Dr. Jossy Porras CARDIAC SRIDHAR ADMITon 022 CK [Catalytic activity/Vol] 30 U/L Critically low 39-308 [facility] Comment on above: Performed By: #### C BC #### [facility] [address] [place] [address] Dr. Jossy Porras CK.MB [Mass/Vol] 1.20 ng/mL Normal <=3.60 [facility] Comment on above: Performed By: #### C BC #### [facility] [address] [place] [address] Dr. Jsosy Porras HSTROP 27.9 pg/mL Normal 4.0-76.1 [facility] Comment on above: Result Comment: CUT- OFF POINTS HAVE BEEN ESTABLISHED BASED ON THE FOURTH UNIVERSAL DEFINITIONS OF MYOCARDIAL INFARCTION. THE UPPER REFERENCE LIMIT (URL) OF TROPONIN, DEFINED THE 99TH PERCENTILE OF cTnI DISTRIBUTION IN A REFERENCE POPULATION, HAS BEEN CONFIRMED THE DECISION THRESHOLD FOR [place] DIAGNOSIS. Performed By: #### C BC #### [facility] [id number] Jossy Porras CLEMENT 44 ng/mL Normal 16-96 [facility] Comment on above: Performed By: #### C BC #### [facility] [id number] Jossy Porras CBC AUTO DIFFon 12-13-2021 BASO # 0.0 103/ul Normal 0.0-0.1 [facility] Comment on above: Performed By: #### C BC ####[facility] [address] [address]DrSal Porras Basophils/100 WBC (Bld) 0.3 % Normal 0.2-2.0 [facility] Comment on above: Performed By: #### C BC ####[facility] [address] [address]DrSal Porras EO # 0.2 103/ul Normal 0.0-0.7 [facility] Comment on above: Performed By: #### C BC ####[facility] [address] [address]DrSal Porras Eosinophils/100 WBC (Bld) 1.3 % Normal 0.9-7.0 [facility] Comment on above: Performed By: #### C BC ####[facility] [address] [id number] Porras Erythrocyte distribution width (RBC) [Ratio] 14.1 % Normal 11.0-15.0 [facility] Comment on above: Performed By: #### C BC ####[facility] [address] [id number] Porras Hematocrit (Bld) [Volume fraction] 50.9 % Normal 42.0-54.0 [facility] Comment on above: Performed By: #### C BC ####[facility] [address] [id number] Porras Hemoglobin (Bld) [Mass/Vol] 16.4 g/dL Normal 14.0-18.0 [facility] Comment on above: Performed By: #### C BC ####[facility] [address] [id number]. Jossy Porras IG # 0.08 10e3/ul Critically high 0.00-0.03 [facility] Comment on above: Performed By: #### C BC ####[facility] [address] [id number]. Jossy Porras IG % 0.7 % Critically high 0.0-0.5 [facility] Comment on above: Performed By: #### C BC ####[facility] [address] [place] [address]Dr. Jossy Porras LYMPH # 3.2 103/ul Normal 1.2-3.8 [facility] Comment on above: Performed By: #### C BC ####[facility] [address] [address]Dr. Jossy Porras Lymphocytes/100 WBC (Bld) 27.6 % Normal 20.5-60.0 [facility] Comment on above: Performed By: #### C BC ####[facility] [address] [place] [address]Dr. Jossy Porras MANUAL DIFF REQ NO Normal [facility] Comment on above: Performed By: #### C BC ####[facility] [address] [address]Dr. Jossy Porras MCH (RBC) [Entitic mass] 31.1 pg Normal 25.9-34.0 [facility] Comment on above: Performed By: #### C BC ####[facility] [address] [address]Dr. Jossy Porras MCHC (RBC) [Mass/Vol] 32.2 g/dL Normal 29.9-35.2 [facility] Comment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
[2023-12-09 19:34] LABS: Basophils Percent Auto 0.2 % (0.2-2.0); Eosinophils Percent Auto 0.1 % (0.9-7.0); Hematocrit 46.9 % (42.0-54.0); Hemoglobin 14.2 g/dL (14.0-18.0); Immature Granulocytes Abs Auto 0.12 10^3/uL (0.00-0.03); Lymphocytes Percent Auto 8.8 % (20.5-60.0); Mean Corpuscular HGB Conc 30.3 g/dL (29.9-35.2); Mean Corpuscular Hemoglobin 31.1 pg (25.9-34.0); Mean Corpuscular Volume 102.6 fL (80.0-94.0); Mean Platelet Volume 11.8 fL (9.5-13.5); Monocytes Absolute Auto 0.4 10^3/uL (0.3-0.8); Neutrophils Absolute Auto 10.2 10^3/uL (1.4-6.5); Neutrophils Percent Auto 86.9 % (43.0-75.0); Platelet Count 197 10^3/uL (150-450); Red Blood Count 4.57 10^6/uL (4.70-6.10); Red Cell Distribution Width 12.9 % (11.0-15.0); White Blood Count 11.8 10^3/uL (4.0-11.0)
[2023-12-09 19:52] LABS: D Dimer 1.31 mg/L FEU (<=0.59)
--- NOTE | 2023-12-09 19:52 | CT_ITS ---
The [address] [address] Patient Name: JAMSHID VARELA MRN: [id number] date: 1955 Sex: M Assigned Patient Location: ER Current Patient Location: Accession/Order Number: [id number] Exam Date: 12/09/2023 20:35 Report Date: 12/09/2023 22:23 At the request of: SATISH LEE Procedure: CT angio chest CT angio chest 12/09/2023 7:35 PM CDT: History: CP, SOB, elevated d dimer Chest pain. Possible pulmonary embolism. Comparison: 12/23/2022 Technique: IV Contrast enhanced CTA imaging of the chest. Sagittal and coronal MIP reformatted images are provided. This CT exam was performed using one or more of the following dose reduction techniques: Automated exposure control, adjustment of the mA and/or KV according to patient size, or use of iterative reconstruction technique. Findings: The central airway is midline and patent. There are emphysematous changes of the lungs bilaterally. There is a right apical groundglass nodule measuring 8 mm. This is new since the previous study. There is minimal bibasilar atelectasis. There is no pleural effusion or pneumothorax. The heart size is normal. There is no pericardial effusion. The pulmonary arteries are patent and normal in caliber. There is no pulmonary embolism. The thoracic aorta is patent and normal in caliber. Limited imaging through the upper abdomen reveals no acute abnormality. 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 CT/CT angio chest Impression: . No pulmonary embolism. 2. New 8 mm right apical pulmonary nodule. Recommend follow-up CT imaging of the chest in 6 months. 3. COPD. Electronically authenticated by: DARLING SHIPMAN Date: 12/09/2023 22:23
[2023-12-09 19:54] LABS: Anion Gap 1.3; BUN Creatinine Ratio 30.3; Carbon Dioxide 46.4 mmol/L (21.0-32.0); Chloride 98 mmol/L (98-107); Estimated GFR (African America >60 (>=60); Estimated GFR (Non-African Ame >60 (>=60); Glucose 114 mg/dL (74-106); Potassium 4.7 mmol/L (3.5-5.1); Sodium 141 mmol/L (136-145); Troponin I High Sensitivity 20.7 pg/mL (4.0-76.1)
--- NOTE | 2023-12-09 20:12 | ED_ITS ---
HPI - Chest Pain General Chief Complaint: Chest Pain Stated Complaint: DIFF BREATHING Time Seen by Provider: 12/09/23 18:33 Source: patient Mode of arrival: ambulance Limitations: no limitations History of Present Illness HPI narrative: This 67-year-old male with a history of COPD was signed out to me at shift change. He presents for evaluation of chest pain and shortness of breath. Patient's EKG was reviewed. Is a sinus rhythm with a right axis deviation 89 bpm with no acute changes. He was seen and evaluated. He has COPD and is on supplemental oxygen 23/11. He states he has been having pain in his chest which is worse with coughing and deep breathing. He has not had a fever. He was given a breathing treatment with mild clinical improvement. Labs are reviewed. He has a mildly elevated white count at 11.8 and stable hemoglobin. Troponin is normal. D-dimer is elevated and a CT angio of the chest was ordered. Electrolytes are normal. BUN and creatinine are normal. Patient was seen and evaluated. He states he is still having midsternal chest pain, worse with deep breathing and movement. He has diffusely diminished and tight sounding lungs with expiratory wheezing. He was given IV morphine and IV Zofran for his pain. 324 mg baby aspirin and a DuoNeb treatment. I also instituted treated him for COPD with 125 mg of Solu-Medrol and [address] angio of the chest is negative for pulmonary embolism but does show signs of COPD and an 8 mm right apical pulmonary nodule which is new since his last CT scan. The results of the CT scan were discussed with him. He was offered admission for further evaluation of his chest pain and COPD. He declines admission and states he would [facility]. He states he is hungry and tired and does not want to be admitted to the hospital. Related Data Home Medications ?Medication ?Instructions ?Recorded ?Confirmed albuterol sulfate 2.5 mg/3 mL 2.5 mg inhalation Q6H PRN 12/23/22 09/15/23 (0.083 %) solution for nebulization shortness of breath or wheezing aspirin 81 mg chewable tablet 81 mg PO DAILY 12/23/22 09/15/23 buspirone 10 mg tablet 7.5 mg PO DAILY 02/09/23 09/15/23 fluticasone propionate 50 2 spray intranasal DAILY 10/11/23 12/11/23 mcg/actuation nasal spray,suspension (24 Hour Allergy Relief) oxymetazoline 0.05 % nasal spray 2 spray intranasal Q12H 02/10/23 02/10/23 (12 Hour Nasal Relief [place]) acetaminophen 325 mg tablet 650 mg PO Q6H PRN fever or pain 04/12/23 09/15/23 (Non-Aspirin) cholecalciferol (vitamin D3) 1,250 50,000 unit PO QWEEK 04/12/23 04/12/23 mcg (50,000 unit) tablet ferrous sulfate 325 mg (65 mg 325 mg PO DAILY 04/12/23 04/12/23 iron) tablet (Keesha-Time) metformin 500 mg tablet,extended 500 mg PO DAILY 04/12/23 04/12/23 release 24 hr omega 9-ota-clx-fish oil 1,000 mg 1 cap PO DAILY 04/12/23 04/12/23 (120 mg-180 mg) capsule (Fish Oil) oxymetazoline 0.05 % nasal spray 2 spray intranasal BID 04/12/23 04/12/23 prednisolone sodium phosphate 10 20 mg PO DAILY 04/12/23 09/15/23 mg disintegrating tablet umeclidinium 62.5 mcg/actuation 1 inh inhalation Q24H 04/12/23 04/12/23 blister powder for inhalation (Incruse Ellipta) Previous Rx's ?Medication ?Instructions ?Recorded budesonide 0.5 mg/2 mL suspension 0.5 mg (2 mL) inhalation BID PRN 02/07/23 for nebulization shortness of breath #60 mL levofloxacin 750 mg tablet 750 mg PO DAILY 7 days #7 tabs 02/07/23 alprazolam 0.5 mg tablet 0.5 mg PO TID PRN anxiety 5 days 02/12/23 #15 tabs prednisone 20 mg tablet 20 mg PO DAILY #1 tab 02/12/23 ondansetron 4 mg disintegrating 4 mg PO Q6H PRN nausea and 04/12/23 tablet vomiting #12 tabs ondansetron 4 mg disintegrating 4 mg PO Q6H PRN nausea and 04/12/23 tablet vomiting #12 tabs Allergies Allergy/AdvReac Type Severity Reaction Status Date / Time No Known Drug Allergies Allergy Verified 12/05/23 03:30 PFSH PFSH Medical History (Updated 12/09/23 @ 22:51 by Valentina Zamora MD) COPD exacerbation ?J44.1 - Chronic obstructive pulmonary disease with (acute) exacerbation (ICD-10) Shortness of breath ?R06.02 - Shortness of breath (ICD-10) Headache ?R51.9 - Headache, unspecified (ICD-10) COVID ?U07.1 - COVID-19 (ICD-10) Acute infective exacerbation of chronic obstructive airway disease ?J44.1 - Chronic obstructive pulmonary disease with (acute) exacerbation (ICD-10) Anxiety ?F41.9 - Anxiety disorder, unspecified (ICD-10) Chronic obstructive pulmonary disease (COPD) ?J44.9 - Chronic obstructive pulmonary disease, unspecified (ICD-10) Current smoker ?F17.200 - Nicotine dependence, unspecified, uncomplicated (ICD-10) Leukocytosis ?D72.829 - Elevated white blood cell count, unspecified (ICD-10) Pulmonary cachexia due to chronic obstructive pulmonary disease ?J44.9 - Chronic obstructive pulmonary disease, unspecified (ICD-10) ?R64 - Cachexia (ICD-10) COVID-19 ?U07.1 - COVID-19 (ICD-10) Chronic respiratory failure with hypoxia ?J96.11 - Chronic respiratory failure with hypoxia (ICD-10) COPD (chronic obstructive pulmonary disease) ?J44.9 - Chronic obstructive pulmonary disease, unspecified (ICD-10) 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-10) COPD with acute exacerbation ?J44.1 - Chronic obstructive pulmonary disease with (acute) exacerbation (ICD -10) Asthma exacerbation with COPD (chronic obstructive pulmonary disease) ?J44.1 - Chronic obstructive pulmonary disease with (acute) exacerbation (ICD-10) ?J45.901 - Unspecified asthma with (acute) exacerbation (ICD-10) Family History Father Family history of CHF (congestive heart failure) Family history of hypertension Mother Family history of CHF (congestive heart failure) Family history of COPD (chronic obstructive pulmonary disease) Family history of hypertension Social History Within the past year, how often did you have a drink containing alcohol: monthly or less Within the past year, how many standard drinks containing alcohol did you have on a typical day: 1 or 2 Within the past year, how often did you have six or more drinks on one occasion: never Total score: 0 Score interpretation: A score less than 4 is consistent with normal alcohol consumption. Smoking status: Current every day smoker Non-prescribed substance use: cannabis (any form) Previous occupational history: retired Highest level of school completed/degree received: some college, no degree Are you now , , , , never or living with a partner: In a typical week, how many times do you talk on the telephone with family, friends, or neighbors: twice per week How often do you get together with friends or relatives: twice per week How often do you attend amish or mandaen services: never Do you belong to any clubs or organizations such as amish groups unions, [employer] or athletic groups, or school groups: no Total score: 1 Score interpretation: A score of less than or equal to 1 indicates the most socially isolated. Little interest or pleasure in doing things: not at all Feeling down, depressed, or hopeless: nearly every day Feel stressed/tense/nervous/anxious/difficulty sleeping: rather much Do you think of yourself as: straight/heterosexual Gender Identity: male Exam Constitutional Vital Signs, click to edit/add: Last Vital Signs Temp 98.4 F 12/09/23 18:33 Pulse 105 H 12/09/23 20:31 Resp 18 12/09/23 20:27 BP 110/68 12/09/23 20:31 Pulse Ox 100 12/09/23 20:31 O2 Del Method Nasal Cannula 12/09/23 20:27 O2 Flow Rate 3 12/09/23 20:27 Course Vital Signs Vital signs: Vital Signs Temperature 98.4 F 12/09/23 18:33 Pulse Rate 79 12/09/23 18:33 Respiratory Rate 18 12/09/23 18:33 Blood Pressure 141/98 H 12/09/23 18:33 Pulse Oximetry 98 12/09/23 18:33 Oxygen Delivery Method Nasal Cannula 12/09/23 18:33 Oxygen Delivery Flow Rate 3 12/09/23 18:33 Temperature 98.4 F 12/09/23 18:33 Pulse Rate 105 H 12/09/23 20:31 Respiratory Rate 18 12/09/23 20:27 Blood Pressure 110/68 12/09/23 20:31 Pulse Oximetry 100 12/09/23 20:31 Oxygen Delivery Method Nasal Cannula 12/09/23 20:27 Oxygen Delivery Flow Rate 3 12/09/23 20:27 MDM - Chest Pain Medical Records Data Medical records narrative: [place] [address] XRay Report Signed Patient: JAMSHID VARELA Jr. MR#: [id number] : 1955 Acct:[id number] Age/Sex: 67 / M ADM Date: 12/09/23 Loc: ER Attending Dr: Ordering Physician: Andrew Lucero M.D. Date of Service: 12/09/23 Procedure(s): XR chest 1V Accession Number(s): [id number] cc: TIBURCIO FIGUEROA ; Andrew Lucero M.D.~ [facility] [place] [id number] Patient Name: JAMSHID VARELA MRN: [id number] date: 1955 Sex: M Assigned Patient Location: ER Current Patient Location: ER Accession/Order Number: [id number] Exam Date: 12/09/2023 18:48 Report Date: 12/09/2023 20:53 At the request of: ANDREW LUCERO Procedure: XR chest 1V EXAMINATION: XR chest 1V, , 12/09/2023 6:48 PM EDT INDICATION: Chest Pain HISTORY: Ordering Provider Reason for Exam: Chest Pain Technologist Note: Additional: COMPARISON: XR chest 1V Study Date: 12/05/2023 TECHNIQUE: Chest x-ray: One view. FINDINGS: No pneumothorax, pleural effusion or focal airspace consolidation. Heart is normal in size. Bony thorax is unremarkable. XR/XR chest 1V IMPRESSION: No acute cardiopulmonary process. Electronically authenticated by: SOCORRO SEAMAN Date: 12/09/2023 20:53 Dictated By: Socorro Seaman M.D. The [place] [id number] CT Scan Report Signed Patient: JAMSHID VARELA Jr. MR#: [id number] : 1955 Acct:[id number] Age/Sex: 67 / M ADM Date: 12/09/23 Loc: ER Attending Dr: Ordering Physician: Valentina Zamora Date of Service: 12/09/23 Procedure(s): CT angio chest Accession Number(s): [id number] cc: TIBURCIO FIGUEROA ~ The [address] [address] Patient Name: JAMSHID VARELA MRN: [id number] date: 1955 Sex: M Assigned Patient Location: ER Current Patient Location: ER Accession/Order Number: [id number] Exam Date: 12/09/2023 20:35 Report Date: 12/09/2023 22:23 At the request of: VALENTINA ZAMORA Procedure: CT angio chest CT angio chest 12/09/2023 7:35 PM CDT: History: CP, SOB, elevated d dimer Chest pain. Possible pulmonary embolism. Comparison: 12/23/2022 Technique: IV Contrast enhanced CTA imaging of the chest. Sagittal and coronal MIP reformatted images are provided. This CT exam was performed using one or more of the following dose reduction techniques: Automated exposure control, adjustment of the mA and/or KV according to patient size, or use of iterative reconstruction technique. Findings: The central airway is midline and patent. There are emphysematous changes of the lungs bilaterally. There is a right apical groundglass nodule measuring 8 mm. This is new since the previous study. There is minimal bibasilar atelectasis. There is no pleural effusion or pneumothorax. The heart size is normal. There is no pericardial effusion. The pulmonary arteries are patent and normal in caliber. There is no pulmonary embolism. The thoracic aorta is patent and normal in caliber. Limited imaging through the upper abdomen reveals no acute abnormality. 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 CT/CT angio chest Impression: . No pulmonary embolism. 2. New 8 mm right apical pulmonary nodule. Recommend follow-up CT imaging of the chest in 6 months. 3. COPD. Electronically authenticated by: DARLING SHIPMAN Date: 12/09/2023 22:23 Lab Data Attestation: I reviewed the patient's lab results. Labs: Lab Results 12/09/23 Range/Units 19:20 WBC 11.8 H (4.0-11.0) 10^3/uL RBC 4.57 L (4.70-6.10) 10^6/uL Hgb 14.2 (14.0-18.0) g/dL Hct 46.9 (42.0-54.0) % MCV 102.6 H (80.0-94.0) fL MCH 31.1 (25.9-34.0) pg MCHC 30.3 (29.9-35.2) g/dL RDW 12.9 (11.0-15.0) % Plt Count 197 (150-450) 10^3/uL MPV 11.8 (9.5-13.5) fL Neut % (Auto) 86.9 H (43.0-75.0) % Lymph % (Auto) 8.8 L (20.5-60.0) % [place] % (Auto) 3.0 (1.7-12.0) % Eos % (Auto) 0.1 L (0.9-7.0) % Baso % (Auto) 0.2 (0.2-2.0) % Neut # (Auto) 10.2 H (1.4-6.5) 10^3/uL Lymph # (Auto) 1.0 L (1.2-3.8) 10^3/uL [place] # (Auto) 0.4 (0.3-0.8) 10^3/uL Eos # (Auto) 0.0 (0.0-0.7) 10^3/uL Baso # (Auto) 0.0 (0.0-0.1) 10^3/uL Abs Immat Gran (auto) 0.12 H (0.00-0.03) 10^3/uL Imm/Tot Granulo (auto) 1.0 H (0.0-0.5) % D-Dimer 1.31 H* (<=0.59) mg/L FEU Sodium 141 (136-145) mmol/L Potassium 4.7 (3.5-5.1) mmol/L Chloride 98 (98-107) mmol/L Carbon Dioxide 46.4 H (21.0-32.0) mmol/L Anion Gap 1.3 BUN 23.0 H (7.0-18.0) mg/dL Creatinine 0.76 (0.70-1.30) mg/dL Est GFR ( Amer) >60 (>=60) Est GFR (Non-Af Amer) >60 (>=60) BUN/Creatinine Ratio 30.3 Glucose 114 H (74-106) mg/dL Calcium 9.0 (8.5-10.1) mg/dL Troponin I High Sens 20.7 (4.0-76.1) pg/mL ECG Data Attestation: I personally reviewed and interpreted this ECG as follows: (Sinus rhythm 89 bpm, moderate right axis deviation, no acute ST segment elevation or T wave inversion) Discharge Plan Discharge Stand Alone Forms: Portal Instructions Chief Complaint: Chest Pain Clinical Impression: Chest pain, COPD (chronic obstructive pulmonary disease), Pulmonary nodule Patient Disposition: Home, Self-Care Time of Disposition Decision: 22:51 Condition: Good Prescriptions / Home Meds: No Action levofloxacin 750 mg tablet 750 mg PO DAILY 7 Days Qty: 7 0RF budesonide 0.5 mg/2 mL suspension for nebulization 0.5 mg inhalation BID PRN (Reason: shortness of breath) Qty: 60 0RF buspirone 10 mg tablet 7.5 mg PO DAILY oxymetazoline [12 Hour Nasal Relief [place]] 0.05 % spray,non-aerosol 2 spray intranasal Q12H fluticasone propionate [24 Hour Allergy Relief] 50 mcg/actuation spray,suspension 2 spray intranasal DAILY Rx Instructions: administer into each nostril prednisone 20 mg tablet 20 mg PO DAILY Qty: 1 0RF Rx Instructions: 3 PO daily x 3 days, then 2 PO daily x 3 days, then 1 PO daily alprazolam 0.5 mg tablet 0.5 mg PO TID PRN (Reason: anxiety) 5 Days Qty: 15 0RF albuterol sulfate 2.5 mg /3 mL (0.083 %) solution for nebulization 2.5 mg inhalation Q6H PRN (Reason: shortness of breath or wheezing) aspirin 81 mg tablet,chewable 81 mg PO DAILY cholecalciferol (vitamin D3) 1,250 mcg (50,000 unit) tablet 50,000 unit PO QWEEK ferrous sulfate [Keesha-Time] 325 mg (65 mg iron) tablet 325 mg PO DAILY omega 9-ony-cnz-fish oil [Fish Oil] 1,000 mg (120 mg-180 mg) capsule 1 cap PO DAILY Incruse Ellipta 62.5 mcg/actuation blister with device 1 inh inhalation Q24H metformin 500 mg tablet extended release 24 hr 500 mg PO DAILY oxymetazoline 0.05 % spray,non-aerosol 2 spray intranasal BID prednisolone sodium phosphate 10 mg tablet,disintegrating 20 mg PO DAILY acetaminophen [Non-Aspirin] 325 mg tablet 650 mg PO Q6H PRN (Reason: fever or pain) ondansetron 4 mg tablet,disintegrating 4 mg PO Q6H PRN (Reason: nausea and vomiting) Qty: 12 0RF ondansetron 4 mg tablet,disintegrating 4 mg PO Q6H PRN (Reason: nausea and vomiting) Qty: 12 0RF Print Language: Bolivian Instructions: Chest Pain (ED), COPD (Chronic Obstructive Pulmonary Disease) (ED), Pulmonary Nodules (ED) Referrals: TIBURCIO FIGUEROA [Primary Care Provider] - 1 week
[2023-12-09] MEDS: ASPIRIN 81 MG TAB.CHEW 324 MG PO (20:15)
[2023-12-09] MEDS: ONDANSETRON PF 4 MG/2 ML VIAL IV (20:16)
[2023-12-09] MEDS: MORPHINE SULFATE 4 MG/ML VIAL IV (20:16)
[2023-12-09] MEDS: IPRATROPIUM/ALBUTEROL SULFATE 3 ML AMPUL.NEB IH (20:25)
[2023-12-09] MEDS: METHYLPREDNISOLONE SOD SUCC PF 125 MG/2 ML VIAL IVP (20:52)
[2023-12-09] MEDS: MAGNESIUM SULFATE IN WATER 2 GM/50 ML PREMIX IV (20:53)
== END 2023-12-10 00:11 | disposition home or self-care (01) ==
PROVIDERS: Emergency Medicine; Emergency Provider Emergency Medicine; PCP Family Medicine
DX: R07.9 Chest pain, unspecified (principal); J44.9 Chronic obstructive pulmonary disease, unspecified; R91.1 Solitary pulmonary nodule; F17.200 Nicotine dependence, unspecified, uncomplicated
CPT/HCPCS: 36415; 71045; 71275; 80048; 84484; 85025; 85378; 93005; 94640; 96365; 96375; 99285; J2270; J2405; J2919; J3475; Q9967